=== PATIENT | female | born 1950 | race African-American/Black ===

== ENCOUNTER 2016-10-28 11:12 | Inpatient (IN) | payer MEDICAID, MEDICARE ==
[~2016-10-28] VITALS: Ht 162.6 cm; Wt 52.2 kg
[~2016-10-28 11:12] MED LIST: APRESOLINE25 MG PO; ARICEPT10 MG PO; ASPIRIN81 M1 PO; ASPIRIN81 M3 PO; ATROVENT H0.017 MG/A IH; ATROVENT HFA12.5 GM INH; BACTRIM DS 800/1 TAB PO; CATAPRES0.1 M1 PO; CATAPRES0.1 MG PO; CEROVITE SENIOR PO; DIFLUCAN100 MG PO; DIVALPROEX SOD125 M1 PO; ESCITALOPRAM5 MG PO; FLOVENT HF220 MCG/AC INH; FOSAMAX70 MG PO; IMDUR30 MG PO; LABETALOL HCL100 M1 PO; LASIX40 MG PO; LEVAQUIN500 MG PO; LEXAPRO10 MG PO; LEXAPRO5 MG PO; METOPROLOL100 M1 PO; NAMENDA10 MG PO; NIZORAL 2%15 GM TP; NORCO 10/325 MG1 TAB PO; NORVASC5 M1 PO; NORVASC5 MG PO; POTASSIUM CHLO10 ME2 PO; PREDNISONE20 MG PO; PRILOSEC40 MG PO; PROTONIX40 M1 PO; RISPERIDONE0.25 M1 PO; SINGULAIR10 MG PO; TRANDATE100 M1 PO; TYLENOL325 M1 PO; TYLENOL325 M2 PO; VENTOLIN H0.09 MG/Ac IH; VITAMIN D31000 I1 PO; ZESTRIL20 MG PO; ZOFRAN4 M2 PO
--- NOTE | 2016-10-28 11:12 | NUR ---
Patient XENIA GARCIA from [facility], transferred to bed 1. RN evalauting patient at bedside.
[2016-10-28] MEDS ORDERED: NACL 0.9% 500 ML IV ONE (11:20)
--- NOTE | 2016-10-28 11:21 | NUR ---
Dr. Fuller evaluating patient at bedside.
[2016-10-28 11:23] VITALS: BP 91/64
--- NOTE | 2016-10-28 11:30 | NUR ---
account technician at bedside for CXR.
[2016-10-28] MEDS ORDERED: GLUCOPHAGE500 MG PO (11:39)
[2016-10-28] MEDS ORDERED: LAMICTAL25 MG PO (11:39)
[2016-10-28] MEDS ORDERED: cefTRIAXone 2,000 MG in DEXTROSE 5% 100 ML IV ONE (11:40)
[2016-10-28] MEDS ORDERED: AZITHROMYCIN 500 MG in DEXTROSE 5% 250 ML IV ONE (11:40)
--- NOTE | 2016-10-28 11:42 | NUR ---
PATIENT PRESENTS TO ED WITH FROM [facility]. BS FIELD 272,BP FIELD 126/76,POX FIELD 97% AT 100% NRB, HX: COPD,ALZHEIMER,DEPRESSION,CVA,HTN,CHF,OSTEOPOROSIS.ERMD AT BEDSIDE . DENIES N/V/D; SKIN IS PINK/WARM/DRY, LUNGS SOUNDS WHEEZES BL; HR ST AND REGULAR; PT DENIES ANY FEVER, CP, SOB, OR COUGH AT THIS TIME; PATIENT STATES PAIN OF 0/10 AT THIS TIME; PATIENT POSITIONED FOR COMFORT; HOB ELEVATED; BEDRAILS UP X2; BED DOWN. ER MD MADE AWARE OF PT STATUS.
[2016-10-28] MEDS ORDERED: NACL 0.9% 1,000 ML IV ONE (11:45)
--- NOTE | 2016-10-28 12:04 | NUR ---
Patient will be admitted to care of DR. DUNCAN ORLANDO. Admited to TELE. Will go to room 114. Belongings list completed. Report to
[2016-10-28] MEDS ORDERED: cefTRIAXone 2,000 MG VIAL ONE (12:11)
[2016-10-28] MEDS ORDERED: AZITHROMYCIN 500 MG INJ VIAL IV ONE (12:11)
--- NOTE | 2016-10-28 12:42 | NUR ---
PT TRANSEFERRED TO TELE SAFELY
[2016-10-28 12:50] VITALS: BP 90/66
--- NOTE | 2016-10-28 12:50 | NUR ---
PATIENT RECEIVED FROM ER VIA [facility] WITH DX OF PNA R/O TB AND HYPERNATREMIA. PATIENT AWAKE BUT UNABLE TO SPEAK AT THIS MOMENT. PATIENT IS ON BEDREST WITH GENERALIZED WEAKNESS. PATIENT ON 3L O2 VIA NC. NO SOB BUT DIMINISHED BREATH SOUNDS NOTED UPON AUSCULTATION. SKIN IS INTACT. IV LINE NOTED TO THE RIGHT FOREARM. PATIENT PLACED ON TELE MONITORING. BED LOWERED WITH CALL LIGHT WITHIN REACH. WILL CONTINUE TO MONITOR
--- NOTE | 2016-10-28 14:30 | NUR ---
PATIENT REPOSITIONED. NO S/S OF DISTRESS NOTED
[2016-10-28] MEDS ORDERED: ACETAMINOPHEN 325 MG TAB PO PRN (14:40)
[2016-10-28] MEDS ORDERED: ALBUTEROL SULFATE/IPRATROPIU 3 ML SOL IH PRN (14:40)
[2016-10-28] MEDS ORDERED: DEXTROSE 50% 50 ML SYR IVP PRN (14:40)
[2016-10-28] MEDS: POTASSIUM CHL 10 MEQ/D5-1/2NS 1,000 ML IV SCH ×2 (15:10→23:00)
[2016-10-28 16:00] VITALS: BP 107/70
--- NOTE | 2016-10-28 16:30 | NUR ---
BLOOD SUGAR 370. 10 UNITS NOVOLOG ADMINISTERED
[2016-10-28] MEDS: BLOOD GLUCOSE MONITORING 1 DEV DEV FS SCH ×2 (16:36→21:18)
[2016-10-28] MEDS: INSULIN ASPART SLIDING SCALE 100 UNITS/ML VIAL SUBQ PRN ×2 (17:09→21:18)
[2016-10-28] MEDS: ALBUTEROL SULFATE/IPRATROPIU 3 ML SOL IH SCH (19:22)
--- NOTE | 2016-10-28 19:30 | NUR ---
ENDORSED CONTINUITY OF CARE TO THE NIGHT NURSE
--- NOTE | 2016-10-28 19:35 | NUR ---
RECEIVED REPORT FROM DAY NURSELUISITO. PATIENT RESTING IN BED. NO RESPIRATORY DISTRESS, SOB, OR DISCOMFORT. INITIAL ASSESSMENT AND BODY CHECK DONE. PATIENT IS NONVERBAL, OPENS EYES SPONTANEOUSLY, WITHDRAWS TO PAIN, UNABLE TO FOLLOW VERBAL COMMANDS. SKIN IS INTACT, IV ACCESS TO RIGHT FOREARM 20G, PATENT. DISCUSSED PLAN OF CARE, MEDICATION REGIMENT, AND PAIN MANAGEMENT WITH PATIENT. PLACED PATIENT ON SAFETY/FALL/ASPIRATION PRECAUTIONS. CALL LIGHT LEFT WITHIN REACH, WILL CONTINUE TO MONITOR.
[2016-10-28 20:00] VITALS: BP 87/63
[2016-10-28] MEDS: LABETALOL 100 MG TAB PO SCH (21:00)
[2016-10-28] MEDS: lamoTRIgine 25 MG TAB PO SCH (21:00)
--- NOTE | 2016-10-28 21:19 | NUR ---
PO LAMICTAL HELD AT THIS TIME. PATIENT VERY WEAK, ASPIRATION RISK. PATIENT OPENS EYES SPONTANEOUSLY, WITHDRAWS TO PAIN, UNABLE TO FULLY FOLLOW VERBAL COMMANDS.
--- NOTE | 2016-10-28 22:03 | NUR ---
PATIENT IN BED, SLEEPING. NO RESPIRATORY DISTRESS, SOB, OR DISCOMFORT. GENERALIZED WEAKNESS. OPENS EYES SPONTANEOUSLY, WITHDRAWS TO PAIN, UNABLE TO FOLLOW COMMANDS. CALL LIGHT LEFT WITHIN REACH, WILL CONTINUE TO MONITOR.
[2016-10-29] VITALS: BP 90/63
--- NOTE | 2016-10-29 00:41 | NUR ---
PATIENT ASLEEP. NO RESPIRATORY DISTRESS, SOB, OR DISCOMFORT. CALL LIGHT LEFT WITHIN REACH, WILL CONTINUE TO MONITOR.
[2016-10-29] MEDS: ALBUTEROL SULFATE/IPRATROPIU 3 ML SOL IH SCH ×4 (01:18→19:21)
--- NOTE | 2016-10-29 01:21 | NUR ---
0118 PT GIVEN SPUTUM CUP. PT UNABLE TO COUGH AT THIS TIME.2 HHNTXS WERE GIVEN. PT BS ARE CLEAR
--- NOTE | 2016-10-29 03:18 | NUR ---
PATIENT SLEEPING. OPENS EYES SPONTANEOUSLY, WITHDRAWS TO PAIN. NO RESPIRATORY DISTRESS, SOB, OR DISCOMFORT. CALL LIGHT LEFT WITHIN REACH, WILL CONTINUE TO MONITOR.
--- NOTE | 2016-10-29 03:42 | NUR ---
0118 UNABLE TO SCAN MEDICATION COMPUTER WOULD NOT SCAN DRUG
[2016-10-29 04:00] VITALS: BP 90/61
--- NOTE | 2016-10-29 06:03 | NUR ---
PATIENT IN BED, ASLEEP. NO RESPIRATORY DISTRESS, SOB, OR DISCOMFORT. CALL LIGHT LEFT WITHIN REACH, WILL CONTINUE TO MONITOR.
[2016-10-29] MEDS: BLOOD GLUCOSE MONITORING 1 DEV DEV FS SCH ×4 (06:15→21:03)
[2016-10-29] MEDS: INSULIN ASPART SLIDING SCALE 100 UNITS/ML VIAL SUBQ PRN ×4 (06:15→21:05)
--- NOTE | 2016-10-29 07:08 | NUR ---
REPORT GIVEN TO DAY NURSELUISITO. PATIENT RESTING IN BED, STABLE. NO RESPIRATORY DISTRESS, SOB, OR DISCOMFORT. ALL NEEDS ATTENDED TO DURING SHIFT, CALL LIGHT LEFT WITHIN REACH.
--- NOTE | 2016-10-29 07:10 | NUR ---
RECEIVED PATIENT REPORT. NO S/S OF DISTRESS AT THIS TIME. PATIENT AWAKE BUT NONVERBAL. PATIENT RECEIVING 2L O2 VIA NC. IV TO THE RIGHT FOREARM INTACT WITH IVF INFUSING WELL. PATIENT ON TELE MONITORING. BED LOWERED WITH CALL LIGHT WITHIN REACH. WILL CONTINUE TO MONITOR
[2016-10-29] MEDS: POTASSIUM CHL 10 MEQ/D5-1/2NS 1,000 ML IV SCH (07:20)
[2016-10-29 08:00] VITALS: BP 91/62
[2016-10-29] MEDS: lamoTRIgine 25 MG TAB PO SCH ×2 (09:00→20:56)
[2016-10-29] MEDS: LABETALOL 100 MG TAB PO SCH ×2 (09:00→20:56)
--- NOTE | 2016-10-29 09:00 | NUR ---
SCHEDULED PO MEDICATIONS NOT ADMINISTERED. PATIENT TOO LETHARGIC AND IS UNABLE TO FOLLOW COMMANDS. PATIENT AT RISK FOR ASPIRATION. WILL NOTIFY THE DOCTOR
[2016-10-29] MEDS: PANTOPRAZOLE 40 MG INJ VIAL IVP SCH (09:14)
[2016-10-29] MEDS: ENOXAPARIN 30 MG/0.3 ML SYR SUBQ SCH (09:16)
--- NOTE | 2016-10-29 10:26 | NUR ---
SPOKE WITH DR ORLANDO AND NOTIFIED HIM THAT PATIENT HAS NOT BEEN ABLE TO TAKE ANYTHING PO. ALSO NOTIFIED ABOUT PATIENT'S ELEVATED BLOOD SUGAR AND PATIENT'S K LEVEL OF 3.3. ORDERS RECEIVED
[2016-10-29] MEDS: POTASSIUM CHL 20 MEQ/ 1/2 NS 1,000 ML IV SCH ×2 (11:17→20:30)
[2016-10-29 12:00] VITALS: BP 96/65
[2016-10-29] MEDS: AZITHROMYCIN 500 MG in DEXTROSE 5% 250 ML IV SCH (12:49)
[2016-10-29] MEDS ORDERED: POTASSIUM CHLORIDE 20% 40 MEQ/15 ML UDC NG SCH (13:00)
--- NOTE | 2016-10-29 14:35 | NUR ---
NGT INSERTED. PATIENT TOLERATED WELL. WAITING FOR XRAY TO VERIFY PLACEMENT
[2016-10-29 16:00] VITALS: BP 91/66
--- NOTE | 2016-10-29 16:59 | NUR ---
TUBE FEEDING STARTED
--- NOTE | 2016-10-29 18:10 | NUR ---
RESIDUAL CHECKED 80ML. TUBE FEEDING RESUMED
--- NOTE | 2016-10-29 19:33 | NUR ---
PATIENT REPORT GIVEN AT BEDSIDE. PATIENT ENDORSED IN STABLE CONDITION
--- NOTE | 2016-10-29 19:33 | NUR ---
PATIENT REPORT GIVEN AT BEDSIDE. PATIENT ENDORSED IN STABLE CONDITION
--- NOTE | 2016-10-29 19:45 | NUR ---
RECEIVED PT IN STABLE CONDITION FROM MI NURSE. AWAKE,ALERT ,ORIENTED X3, BUT NON VERBAL. ON TELE MONITOR-ST. NO ACUTE DISTRESS NOTED. ON O23L/NC. JUST GOT A BREATHING TREATMENTS. HAS IVF INFUSING WELL ON THE RT FA #[id number].. NPO . BUT HAS NGT FEEDING TOLERATING WELL. NO RESIDUAL NOTED. SIDE RAILS ARE PADDED FOR SEIZURE PRECAUTIONS. BED ON LOW POSITION. CALL LIGHT PLACED WITHIN EASY REACH. WILL CONTINUE TO MONITOR.
[2016-10-29 20:00] VITALS: BP 94/65
--- NOTE | 2016-10-29 21:00 | NUR ---
AWAKE, WITH NO ACUTE DISTRESS NOTED. WILL CONTINUE TO MONITOR.
--- NOTE | 2016-10-29 23:00 | NUR ---
MADE AROUNDS. REPOSITIONED FOR COMFORT. NO DISTRESS NOTED.
[2016-10-30 00:45] VITALS: BP 102/77
[2016-10-30] MEDS: POTASSIUM CHL 20 MEQ/ 1/2 NS 1,000 ML IV SCH ×2 (00:59→16:30)
[2016-10-30] MEDS: ALBUTEROL SULFATE/IPRATROPIU 3 ML SOL IH SCH ×4 (01:18→19:13)
--- NOTE | 2016-10-30 02:00 | NUR ---
ASLEEP. NO ACUTE DISTRESS NOTED.
--- NOTE | 2016-10-30 04:00 | NUR ---
HAS BEEN REPOSITIONED FOR COMFORT. NO S/S OF ANY DISTRESS NOTED.
[2016-10-30 04:30] VITALS: BP 108/74
--- NOTE | 2016-10-30 05:30 | NUR ---
NGT PULLED OUT . INSERTED A NEW NGT FR#14 ON LEFT NARES. TOLERATED WELL. NGT FEEDING INFUSING.
[2016-10-30] MEDS: BLOOD GLUCOSE MONITORING 1 DEV DEV FS SCH ×4 (06:10→21:51)
[2016-10-30] MEDS: INSULIN ASPART SLIDING SCALE 100 UNITS/ML VIAL SUBQ PRN ×2 (06:21→12:08)
--- NOTE | 2016-10-30 07:15 | NUR ---
ENDORSED PT IN STABLE CONDITION TO AM NURSE.
--- NOTE | 2016-10-30 07:16 | NUR ---
RECEIVED REPORT FROM PETAL SHAPER HAND RN ADRIEL. PT IS A/O X 1, BEDBOUND. RFA 22G IV INTACT. 44ML/HR DIABETIC SOURCE FEEDING VIA NGT. NO S/S OF ACUTE CARDIAC/RESPIRATORY DISTRESS OR DISCOMFORT. SAFETY MEASURES IN PLACE, CALL LIGHT WITHIN REACH. FALL RISK PRECAUTION AND SEIZURE PRECAUTIONS IN PLACE. WILL CONTINUE PLAN OF CARE AND CONTINUE TO MONITOR.
[2016-10-30 08:00] VITALS: BP 105/67
[2016-10-30] MEDS: LABETALOL 100 MG TAB PO SCH ×2 (09:00→21:00)
--- NOTE | 2016-10-30 09:22 | NUR ---
PATIENT HAS BEEN SCREENED AND CATEGORIZED HIGH NUTRITION RISK. PATIENT WILL BE SEEN WITHIN 1-2 DAYS OF ADMISSION. 10/29/16-10/30/[address]
--- NOTE | 2016-10-30 09:30 | NUR ---
PT PULLED HER NGT OUT, MITTEN ARE OFF. REINSERTED NGT, CONFIRMED PLACEMENT. CLEANED AND TURNED PT WITH GLOBAL TECHNICAL WRITER AND PLACED MITTENS. PT TOLERATED HER AM MEDS WELL AND TOLERATING FEEDING WELL. NO S/S OF ACUTE DISTRESS OR DISCOMFORT. CALL LIGHT WITHIN REACH. WILL CONTINUE TO MONITOR.
[2016-10-30] MEDS: lamoTRIgine 25 MG TAB PO SCH ×2 (09:38→21:47)
[2016-10-30] MEDS: PANTOPRAZOLE 40 MG INJ VIAL IVP SCH (09:38)
[2016-10-30] MEDS: ENOXAPARIN 30 MG/0.3 ML SYR SUBQ SCH (09:43)
[2016-10-30] MEDS: INSULIN DETEMIR 100 UNITS/ML 10 ML VIAL SUBQ SCH (09:54)
[2016-10-30 12:00] VITALS: BP 109/69
[2016-10-30] MEDS: AZITHROMYCIN 500 MG in DEXTROSE 5% 250 ML IV SCH (12:06)
--- NOTE | 2016-10-30 12:41 | NUR ---
PT IS RESTING. NO S/S OF ACUTE DISTRESS OR DISCOMFORT. CALL LIGHT WITHIN REACH. WILL CONTINUE TO MONITOR.
--- NOTE | 2016-10-30 15:00 | NUR ---
PT IS SLEEPING. NO S/S OF ACUTE DISTRESS OR DISCOMFORT. CALL LIGHT WITHIN REACH. WILL CONTINUE TO MONITOR.
--- NOTE | 2016-10-30 15:10 | NUR ---
10/30/16 RD INITIAL ASSESSMENT COMPLETED PLEASE REFER TO NUTRITION ASSESSMENT UNDER CARE ACTIVITY FOR ESTIMATED NUTRITIONAL NEEDS. RD RECOMMENDATIONS: 1. CONTINUE NUTRITION SUPPORT TUBE FEEDING DIABETISOURCE AC AT 45 ML/HR VIA NGTUBE 2. IF PT CONTINUES TO TOLERATE NUTRITION SUPPORT CONSIDER ADVANCE RATE TOLERATED 5ML Q4H TO GOAL OF 60 ML/HR --AT GOAL, NUTRITION SUPPORT WILL PROVIDE 1440 ML TOTAL VOLUME 1728 KCAL, 86 GM PROTEIN TO MEET 100% OF PT ESTIMATED KCAL AND PROTEIN NEEDS. 3. RD WILL F/U 2-3 DAYS; HIGH RISK. TRAVIS [address] RD
[2016-10-30 16:00] VITALS: BP 98/64
--- NOTE | 2016-10-30 18:02 | NUR ---
PT IS SLEEPING. PT TOLERATING FEEDING WELL. NO S/S OF ACUTE DISTRESS OR DISCOMFORT. CALL LIGHT WITHIN REACH. WILL CONTINUE TO MONITOR.
--- NOTE | 2016-10-30 19:20 | NUR ---
ENDORSED REPORT TO LINE REPAIRER RN SHAWNEE. PT HAS NO S/S OF ACUTE DISTRESS OR DISCOMFORT. PT IN STABLE CONDITION.
--- NOTE | 2016-10-30 19:28 | NUR ---
RECEIVED FROM AM RN IN BED. TOTAL CARE RT WEAKNESS.NGT IN PLACE WITH DM 50 ML/H INFUSING. PLACEMENT CHECKED. IN PLACE. NO VOMITING NOTED WITH PT. AND NO COUGHING NOTED OR REPORTED BY AM RN. HOB UP 30 DEGREES FOR ASPIRATION PRECAUTIONS. WITH MITTENS RT PT. PULLS OUT NGT. RFA#[address] INFUSING WITH 1/2 NS + 20 MEQS OF KCL @ 100 ML/H. IVF SITE INTACT AND NO INFILTRATION . NEEDS WILL BE ANTICIPATED RT HX. DEMENTIA. NONE VERBAL AT THIS TIME WITH ME.
[2016-10-30 20:00] VITALS: BP 96/57
--- NOTE | 2016-10-30 22:00 | NUR ---
IVF SITE NOTED LEAKING AT THIS TIME. CHARGE NURSE INSERTED NEW LINE TO RIGHT FOREARM #22. TOLERATED WELL. WITH GOOD BLOOD RETURN.
--- NOTE | 2016-10-31 | NUR ---
PT. TURNED TO SIDES Q 2H. TOTAL CARE. NGT PLACEMENT CHECKED. IN PLACE. NEEDS ANTICIPATED AND WILL BE MET. TELEMETRY MONITORING. ISOLATION PRECAUTION IN PLACE RT HX. MRSA NARES.
[2016-10-31 00:11] VITALS: BP 100/60
[2016-10-31] MEDS: ALBUTEROL SULFATE/IPRATROPIU 3 ML SOL IH SCH ×3 (01:20→12:59)
--- NOTE | 2016-10-31 02:00 | NUR ---
PT. TOTAL CARE. TURNED Q 2H. RESIDUAL PER NGT 10 ML. NO VOMITING NOTED. NGT IN PLACE.
[2016-10-31] MEDS: POTASSIUM CHL 20 MEQ/ 1/2 NS 1,000 ML IV SCH ×2 (02:30→12:39)
--- NOTE | 2016-10-31 04:00 | NUR ---
SLEEPING AT THIS TIME. TURNED TO SIDES Q 2H BY CNAS. NEEDS ANTICIPATED AND WILL BE MET. TOTAL CARE. ISOLATION PRECAUTIONS OBSERVED. CALL LIGHT WITH IN REACH. MITTENS IN PLACE RT TENDENCY OF PULLING TUBES. PADDED SIDERAILS FOR SEIZURE PRECAUTIONS.
[2016-10-31 04:32] VITALS: BP 99/64
[2016-10-31] MEDS: BLOOD GLUCOSE MONITORING 1 DEV DEV FS SCH ×2 (06:57→11:46)
[2016-10-31] MEDS: INSULIN ASPART SLIDING SCALE 100 UNITS/ML VIAL SUBQ PRN ×2 (06:58→11:47)
--- NOTE | 2016-10-31 07:25 | NUR ---
ENDORSED TO THE NEXT RN FOR CONTINUITY OF CARE. AWAKE AND NONE VERBAL. TURNED Q 2H. TOTAL CARE. TELEMETRY MONITORING.
--- NOTE | 2016-10-31 07:26 | NUR ---
PT AWAKE AND RESPONSIVE, RESTING WELL IN BED. NO SIGNS OF ACUTE DISTRESS. SKIN IS WARM AND DRY. OFFLOAD TO PRESSURE AREAS. NG TUBE IN PLACE ON RIGHT NARE. INTACT AND PATENT, NO RESIDUAL. TOLERATING FEEDING WELL. FLACC 0. KEPT CLEAN AND DRY. ALL NEEDS ANTICIPATED. CALL LIGHT WITHIN REACH.
[2016-10-31 08:00] VITALS: BP 107/74
[2016-10-31] MEDS: LABETALOL 100 MG TAB PO SCH (08:21)
[2016-10-31] MEDS: lamoTRIgine 25 MG TAB PO SCH (08:37)
[2016-10-31] MEDS: PANTOPRAZOLE 40 MG INJ VIAL IVP SCH (08:37)
[2016-10-31] MEDS: INSULIN DETEMIR 100 UNITS/ML 10 ML VIAL SUBQ SCH (08:44)
[2016-10-31] MEDS: ENOXAPARIN 30 MG/0.3 ML SYR SUBQ SCH (08:45)
[2016-10-31 12:00] VITALS: BP 97/60
[2016-10-31] MEDS: AZITHROMYCIN 500 MG in DEXTROSE 5% 250 ML IV SCH (12:49)
--- NOTE | 2016-10-31 13:05 | NUR ---
RECEIVED ORDER FROM Ingrid CRUMP D/C TODAY. CONTINUE PO AND IV ABX SS MADE AWARE.
--- NOTE | 2016-10-31 13:28 | NUR ---
SS NOTE: PER GERMAIN FROM [facility] ([phone]), PT CAN GO TO ROOM 14B ANYTIME. SHE ALSO STATED THAT PT IS OKAY TO RETURN THERE WITH MITTENS. HADLEY BARRERA.
--- NOTE | 2016-10-31 14:37 | NUR ---
CALLED [facility] AND SET UP BLS TRANSPORT FOR 3:30P.Shelly. KATHY ALMAGUER AWARE.
[2016-10-31] MEDS ORDERED: AUGMENTIN 500 M1 TAB PO (14:42)
--- NOTE | 2016-10-31 15:15 | NUR ---
REPORT GIVEN TO SHAWNEE AT [facility]. ETA P/U BY [facility] AT 1530 PER SS..
--- NOTE | 2016-10-31 15:45 | NUR ---
PT AWAKE AND RESPONSIVE, NO SIGNS OF ACUTE DISTRESS, [facility]. PT NEEDS REINFORCEMENT ON EDUCATION, UNABLE TO COMPLY. NG TUBE AND IV ON RIGHT FOREARM IN PLACE, WRIST BANDS AND TELE LEADS REMOVED. PERSONAL BELONGINGS WITH PT UPON TRANSFER. PICKED UP BY [facility]IA [facility].
== END 2016-10-31 15:45 | DRG 720 ==
LOC: MED 11:12 → MTU 12:03
PROVIDERS: ADMIT Family Medicine; ATTEND Family Medicine
DX: A41.9 Sepsis, unspecified organism (principal); J69.0 Pneumonitis due to inhalation of food and vomit; E87.0 Hyperosmolality and hypernatremia; J96.11 Chronic respiratory failure with hypoxia; I50.9 Heart failure, unspecified; F01.50 Vascular dementia, unspecified severity, without behavioral disturbance, psychotic disturbance, mood disturbance, and anxiety; E86.0 Dehydration; E11.9 Type 2 diabetes mellitus without complications; G40.909 Epilepsy, unspecified, not intractable, without status epilepticus; K21.9 Gastro-esophageal reflux disease without esophagitis; M81.0 Age-related osteoporosis without current pathological fracture; I11.0 Hypertensive heart disease with heart failure; E78.5 Hyperlipidemia, unspecified; J44.0 Chronic obstructive pulmonary disease with (acute) lower respiratory infection; R64 Cachexia; Z28.89 Immunization not carried out for other reason; Z99.81 Dependence on supplemental oxygen; Z68.1 Body mass index [BMI] 19.9 or less, adult; Z79.82 Long term (current) use of aspirin; Z79.899 Other long term (current) drug therapy; Z87.81 Personal history of (healed) traumatic fracture; Z86.73 Personal history of transient ischemic attack (TIA), and cerebral infarction without residual deficits

== ENCOUNTER 2016-11-09 10:49 | Inpatient (IN) | payer MEDICAID, MEDICARE ==
[2016-11-09] VITALS (9 sets, daily range): BP systolic 78–118; BP diastolic 48–74
[~2016-11-09] VITALS: Ht 162.6 cm; Wt 40.8 kg
[~2016-11-09 10:49] MED LIST changes: +AUGMENTIN 500 M1 TAB PO; +GLUCOPHAGE500 MG PO; +LAMICTAL25 MG PO
--- NOTE | 2016-11-09 10:51 | NUR ---
Note undone in EDM - 11/09/16 at 1454 by [email or web address] 6/F XENIA FROM [facility] FOR ACUTE ONSET OF SOB. PT NON VERBAL,RESPONSES TO VOICE.PATIENT PRESENTS TO ED HAS NOT N/V/D NOTED AT THIS TIME; SKIN IS PINK/WARM/DRY,SKIN TEAR AT COCCYX; ; LUNGS WHEEZING BL; HR TACHYCARDEA 141/MIN ; PT HAS LOW FEVER & SOB, AT THIS TIME; PATIENT STATES PAIN OF 0/10 AT THIS TIME; PATIENT POSITIONED FOR COMFORT; HOB ELEVATED; BEDRAILS UP X2; BED DOWN. ER MD MADE AWARE OF PT STATUS.
--- NOTE | 2016-11-09 10:51 | NUR ---
Note undone in EDM - 11/09/16 at 1454 by [email or web address] 66/F XENIA FROM [facility] FOR ACUTE ONSET OF SOB. PT NON VERBAL,RESPONSES TO VOICE.PATIENT PRESENTS TO ED HAS N/V/D NOTED AT THIS TIME; SKIN IS PINK/WARM/DRY,SKIN TEAR AT COCCYX; ; LUNGS WHEEZING BL; HR TACHYCARDEA 141/MIN ; PT HAS LOW FEVER & SOB, AT THIS TIME; PATIENT STATES PAIN OF 0/10 AT THIS TIME; PATIENT POSITIONED FOR COMFORT; HOB ELEVATED; BEDRAILS UP X2; BED DOWN. ER MD MADE AWARE OF PT STATUS.
--- NOTE | 2016-11-09 10:52 | NUR ---
INFORMATION OBTAINED FROM EMT 66 Y/O FEMALE FROM [facility] PRESENTING TO [facility] WITH SOB SATURATION AT SITE 86% ON ROOM AIR PATIENT EMT PLACED ON NON REBREATHER PATIENT GIVEN EIN ROUTE HHN THERAPY WITH 1 UD ALBUTEROLI ONLY DUE TO TACHYCARDIC STATUS HR 146 RR 28 BREATH SOUNDS POSTERIOR INSP/EXP WHEEZE BILATERAL PATIENT PLACED ON [facility] NON REBREATHER AT 15 LPM
--- NOTE | 2016-11-09 10:54 | NUR ---
REVIEWED STATUS WITH DR. SHADY JACOBSON
--- NOTE | 2016-11-09 10:55 | NUR ---
66/F BIBA FROM [facility] FOR ACUTE ONSET OF SOB. PT NON VERBAL,RESPONSES TO VOICE.PATIENT PRESENTS TO ED HAS NOT N/V/D NOTED AT THIS TIME; SKIN IS PINK/WARM/DRY,SKIN TEAR AT COCCYX; ; LUNGS WHEEZING BL; HR TACHYCARDEA 141/MIN ; PT HAS LOW FEVER & SOB, AT THIS TIME; PATIENT STATES PAIN OF 0/10 AT THIS TIME; PATIENT POSITIONED FOR COMFORT; HOB ELEVATED; BEDRAILS UP X2; BED DOWN. ER MD MADE AWARE OF PT STATUS.
--- NOTE | 2016-11-09 10:55 | NUR ---
DR.STEVEN JACOBSON AT BEDSIDE V.O. PLACE PATIENT ON COOL MIST
[2016-11-09] MEDS ORDERED: NACL 0.9% 1,000 ML IV ONE ×2 (11:20→12:55)
--- NOTE | 2016-11-09 11:26 | NUR ---
X RAY AT BEDSIDE
--- NOTE | 2016-11-09 11:34 | NUR ---
LAB AT BEDSIDE
[2016-11-09] MEDS ORDERED: PIPERACILLIN/TAZOBACTAM 3.375 GM in DEXTROSE 5% 50 ML IV ONE (11:50)
[2016-11-09] MEDS ORDERED: PIPERACILLIN/TAZOBACTAM 3.375 GM VIAL IV ONE (12:08)
[2016-11-09] MEDS ORDERED: INSULIN HUMAN REGULAR 100 UNITS/ML 10 ML VIAL IVP ONE (12:40)
[2016-11-09] MEDS ORDERED: VANCOMYCIN 1,000 MG in DEXTROSE 5% 250 ML IV ONE (12:55)
[2016-11-09] MEDS ORDERED: VANCOMYCIN 1,000 MG VIAL ONE (13:21)
--- NOTE | 2016-11-09 14:05 | NUR ---
GAVE REPORT TO TRIPP JORGE
--- NOTE | 2016-11-09 14:10 | NUR ---
Patient will be admitted to care of DR Corbin ORLANDO. Admited to [email or web address] Will go to [id number]. Belongings list completed. Report to TRIPP JORGE.
--- NOTE | 2016-11-09 14:20 | NUR ---
ADMITTED PT FROM ER TO TELE RM 107B. AAOX1, NONVERBAL. [id number], [id number], BP102/74, RR32 LABORED BREATHING, SaO2 96-98% ON O2@15L/MIN VIA MASK; DR HILL AT BEDSIDE TO EVALUATE PT, ORDERED TO TRANSFER TO ICU, UNIT MANAGER CONVENIENCE STORES MADE AWARE. COOLING MEASURES APPLIED, REQUESTED APAP SUPPOSITORY FROM . JEANNINEO INFUSING TO RIGHT FA 24, IV SL TO LEFT HAND; BOTH SITES ASYMPTOMATIC. SACROCOCCYGEAL OPEN WOUND, REPOSITIONED PER PROTOCOL. SMALL AMT SOFT BROWN STOOL, LARGE AMT YELLOW URINE NOTED ON PAD; PERICARE GIVEN. SAFETY PRECAUTIONS MAINTAINED. WILL CONTINUE TO CLOSELY MONITOR UNTIL TRANSFER.
[2016-11-09] MEDS: IPRATROPIUM 0.02% 0.5 MG/2.5 ML NEBU INH PRN ×2 (14:59→19:24)
[2016-11-09] MEDS: ALBUTEROL 0.083% 2.5 MG/3 ML NEBU INH PRN ×3 (14:59→23:12)
--- NOTE | 2016-11-09 15:00 | NUR ---
TEMP 99.7, CONTINUED COOLING MEASURES.
--- NOTE | 2016-11-09 15:29 | NUR ---
RECEIVED REPORT FROM TRIPP JORGE.
[2016-11-09] MEDS ORDERED: DEXTROSE 50% 50 ML SYR IVP PRN (15:40)
--- NOTE | 2016-11-09 15:45 | NUR ---
PT EVALUATED BY DR ORLANDO, DISCUSSED PT CONDITION AND PLAN OF CARE; NEW ORDERS PENDING. TRANSFERRED SAFELY TO ICU BED1, REPORT GIVEN TO TRIPP MORAN.
--- NOTE | 2016-11-09 16:00 | NUR ---
RECEIVED PATIENT FROM TELE. PT SEEN AT BEDSIDE. PT IS AWAKE, UNABLE TO COMMUNICATE WITH WORDS, ONLY RESPONDS IN GRUNTS. PT PLACED ON SHOP LEAD, RUNNING SINUS TACHY HR CURRENTLY AT 135. RIGHT FA 24G IV NOTED AND LEFT HAND 22G NOTED. IV'S HAVE SOME RESISTANCE WHEN FLUSHING WITH NS. PT ON 15L O2 VIA NRB. PT IS TACHYPNEIC, WITH RR AT 35 WITH LABORED BREATHING. TEMPERATURE IS 100.4F. PT IS INCONTINENT AT THIS TIME, HAD X1 BM AT TELE UNIT. STAGE II PRESSURE ULCER WITH SACRUM NOTED. IVETH AT THIS TIME. PT TURNED AND REPOSITIONED FOR COMFORT. SAFETY MEASURES CHECKED, CALL LIGHT LEFT AT BEDSIDE. WILL FOLLOW UP WITH ORDERS AND CONTINUE TO MONITOR.
[2016-11-09] MEDS ORDERED: FAMOTIDINE 20 MG/2 ML VIAL IV SCH (17:00)
[2016-11-09] MEDS: POTASSIUM CHL 10 MEQ/D5-1/2NS 1,000 ML IV SCH (17:05)
[2016-11-09] MEDS: ACETAMINOPHEN 650 MG SUPP RC PRN (17:06)
[2016-11-09] MEDS: BLOOD GLUCOSE MONITORING 1 DEV DEV FS SCH ×2 (17:21→20:29)
[2016-11-09] MEDS: INSULIN LISPRO SLIDING SCALE 100 UNITS/ML VIAL SUBQ PRN ×2 (17:25→21:53)
[2016-11-09] MEDS: LEVOFLOXACIN 500 MG/D5W PREMIX 100 ML IV SCH (17:26)
[2016-11-09] MEDS: PIPER/TAZO 3.375GM/D5W PREMIX 50 ML IV SCH ×2 (17:27→23:18)
[2016-11-09] MEDS ORDERED: PROBIOTIC SCREEN 1 EA MISC MC PRN (17:40)
--- NOTE | 2016-11-09 17:45 | NUR ---
VILMA/RN AND LUISA/RN AT BEDSIDE FOR NG TUBE INSERTION TELEPHONE SEX WORKER UNABLE TO PERFORM ABG AT THIS TIME TELEPHONE SEX WORKER TO PASS ORDER ON TO NOC TELEPHONE SEX WORKER DURING REPORT
--- NOTE | 2016-11-09 17:50 | NUR ---
NGT INSERTED. GREENISH GASTRIC DRAINAGE ASPIRATED. PLACEMENT AUSCULTATED.
--- NOTE | 2016-11-09 18:00 | NUR ---
NEW IV INSERTED BY TRIPP ESPARZA.
--- NOTE | 2016-11-09 18:30 | NUR ---
RT AT BEDSIDE PERFORMING ABG.
--- NOTE | 2016-11-09 18:46 | NUR ---
DR WAHL CALLED. RESP THERAPIST INFORMED MD ABOUT ABG RESULTS. NOTIFIED THAT "PATIENT ALSO HAS A SACRUM STAGE II ULCER AND IS INCONTINENT OF URINE ; OK TO PUT ROMERO IN?" PER , OK TO PUT ROMERO IN. WILL FOLLOW UP WITH ORDERS.
--- NOTE | 2016-11-09 19:00 | NUR ---
ROMERO CATHETER INSERTED BY TRIPP ESPARZA.
--- NOTE | 2016-11-09 19:10 | NUR ---
1904 PLACED PT ON BIPAP 08/14 RR 12 FIO2 100% AND TITRATE FIO2 TO BE GREATER THAN 92%. DR WAHL WAS CALLED WITH ABG PRIOR TO PLACING PT ON BIPAP..WILL MONITOR PT
--- NOTE | 2016-11-09 19:29 | NUR ---
RECEIVED REPORT FROM DAY SHIFT RN LUISA. FULL CODE, ON NATIONAL BUSINESS DIRECTOR, SINUS TACHYCARDIA. ON BIPAP I/E 08/14, RATE OF 12, FIO2 100%. WITH NGT ON RIGHT NARE. TO START FEEDING. WITH PERIPHERAL IV OF G22 ON RIGHT ARM RUNNING IVF OF D5 1/2 NS + 10 MEQ KCL RUNNING AT 120 ML/HR VIA IV PUMP. WITH ANOTHER PERIPHERAL IV ON RIGHT ARM G24 SALINE LOCK. WITH ROMERO CATHETER DRAINING TO YELLOWISH URINE OUTPUT ON GRAVITY BAG. WITH STAGE 2 SACRAL WOUND OPENED TO AIR.
--- NOTE | 2016-11-09 19:29 | NUR ---
REPORT GIVEN TO TRIPP ARROYO.
[2016-11-09] MEDS: lamoTRIgine 25 MG TAB PO SCH (20:30)
[2016-11-09] MEDS: SACCHAROMYCES 250 MG CAP PO SCH (20:30)
--- NOTE | 2016-11-09 21:15 | NUR ---
PAGED DR. WAHL AND CALLED BACK. INFORMED OF PATIENT'S HR = 133, LOW BP = 75/57. ORDERS MADE. TO GIVE BOLUS NS 1L. LEVOPHED DRIP PRN IF BP NOT IMPROVED.
[2016-11-09] MEDS ORDERED: NOREPINEPHRINE 8 MG in DEXTROSE 5% 250 ML IV PRN (21:20)
[2016-11-09] MEDS ORDERED: NACL 0.9% 1,000 ML IV SCH (21:20)
[2016-11-09] MEDS ORDERED: NOREPINEPHRINE 4 MG in DEXTROSE 5% 250 ML IV PRN (21:25)
--- NOTE | 2016-11-09 22:00 | NUR ---
1L OF NS BOLUS GIVEN ORDERED. BP = 89/58.
--- NOTE | 2016-11-09 23:14 | NUR ---
2120 LOWERED FIO2 TO 80% SATS 100%
--- NOTE | 2016-11-09 23:15 | NUR ---
2312 LOWERED FIO2 TO 50% SATS 100%
[2016-11-10] VITALS (24 sets, daily range): BP systolic 89–122; BP diastolic 54–75
--- NOTE | 2016-11-10 00:12 | NUR ---
REPOSITIONED PATIENT. BED IN LOW POSITION. ALL ALARMS CHECKED. JUSTIN-CARE GIVEN.
--- NOTE | 2016-11-10 01:59 | NUR ---
BP = 111/65. REPOSITIONED PATIENT. ORAL CARE GIVEN. SAFETY CHECKS DONE.
[2016-11-10] MEDS: ALBUTEROL 0.083% 2.5 MG/3 ML NEBU INH PRN ×3 (03:22→15:05)
--- NOTE | 2016-11-10 03:45 | NUR ---
MORNING CARE GIVEN, ORAL CARE DONE. REPOSITIONED PATIENT. ALL LINENS AND GOWN CHANGED. JUSTIN-CARE GIVEN. BIPAP FIO2 40%.
[2016-11-10] MEDS: PIPER/TAZO 3.375GM/D5W PREMIX 50 ML IV SCH ×4 (05:40→23:43)
[2016-11-10] MEDS: POTASSIUM CHL 10 MEQ/D5-1/2NS 1,000 ML IV SCH ×3 (05:40→15:39)
--- NOTE | 2016-11-10 06:00 | NUR ---
X-RAY DONE AT THE BEDSIDE. REPOSITIONED PATIENT. BED IN LOW POSITION. ALL ALARMS CHECKED. SAFETY CHECKED.
--- NOTE | 2016-11-10 06:15 | NUR ---
PAGED DR. WAHL FOR ABNORMAL LAB VALUES. WILL WAIT FOR CALL BACK.
--- NOTE | 2016-11-10 06:30 | NUR ---
DR. WAHL CALLED BACK. POTASSIUM = 2.5, POTASSIUM REPLACEMENTS ORDERED.
[2016-11-10] MEDS ORDERED: POTASSIUM CHLORIDE 10 MEQ TABER PO PRN (06:45)
[2016-11-10] MEDS: IPRATROPIUM 0.02% 0.5 MG/2.5 ML NEBU INH PRN (07:02)
--- NOTE | 2016-11-10 07:08 | NUR ---
RECEIVED PT ON BIPAP, SETTINGS 12/5, R 12 AND FIO2 40%. PT IS TACHYPNEIC AT THIS TIME. PRN BREATHING TX ADMINISTERED WITH NO ADVERSE REACTIONS. PT HAS PROTECTA-GEL PLACED UNDER MASK TO PREVENT NECROSIS, NO REDNESS NOTED. BIPAP IS PLUGGED INTO RED OUTLET WITH ALARMS ON AND FUNCTIONING. WILL CONTINUE TO MONITOR.
--- NOTE | 2016-11-10 07:15 | NUR ---
PATIENT REPORT GIVEN TO DAY SHIFT RN LUISA.
[2016-11-10] MEDS: BLOOD GLUCOSE MONITORING 1 DEV DEV FS SCH ×4 (07:25→21:00)
[2016-11-10] MEDS: INSULIN LISPRO SLIDING SCALE 100 UNITS/ML VIAL SUBQ PRN ×3 (07:26→16:40)
[2016-11-10] MEDS ORDERED: KCL 20 MEQ/WATER INJ PREMIX 200 ML IV SCH (07:30)
--- NOTE | 2016-11-10 07:30 | NUR ---
RECEIVED REPORT FROM TRIPP ARROYO. PT SEEN AT BEDSIDE. PT IS NONVERBAL, HAS HX OF CVA AND DEMENTIA. PT ON BIPAP AT THIS TIME SATTING 100%. PT HAS RIGHT FA 24G IV SALINE LOCKED AND RIGHT HAND 22G IV RUNNING IVF. PATIENT ON FEED RESEARCH AIDE RUNNING SINUS TACHY AT THIS TIME. PT ON NGT FEEDING; RESIDUAL 5. ABD SOFT WITH ACTIVE BS IN X4 QUADRANTS. PT HAS ROMERO CATHETER IN PLACE DRAINING YELLOW, CLEAR URINE. PT HAS STAGE II PRESSURE ULCER ON SACRUM COVERED WITH FOAM DRESSING. PATIENT TURNED AND REPOSITIONED FOR COMFORT. SAFETY MEASURES CHECKED, CALL LIGHT LEFT AT BEDSIDE. WILL CONTINUE TO MONITOR.
[2016-11-10] MEDS ORDERED: POTASSIUM CHLORIDE 20% 40 MEQ/15 ML UDC GT SCH ×2 (08:00→12:00)
--- NOTE | 2016-11-10 08:21 | NUR ---
PATIENT HAS BEEN SCREENED AND CATEGORIZED HIGH NUTRITION RISK. PATIENT WILL BE SEEN WITHIN 1-2 DAYS OF ADMISSION. 11/10/16-11/11/[address]
[2016-11-10] MEDS: SACCHAROMYCES 250 MG CAP PO SCH ×2 (08:41→22:12)
[2016-11-10] MEDS: lamoTRIgine 25 MG TAB PO SCH ×2 (08:41→22:12)
[2016-11-10] MEDS: ENOXAPARIN 40 MG/0.4 ML SYR SUBQ SCH (08:43)
[2016-11-10] MEDS: INSULIN DETEMIR 100 UNITS/ML 10 ML VIAL SUBQ SCH (08:43)
--- NOTE | 2016-11-10 09:41 | NUR ---
CONTACTED REGARDING PT STATUS. REQUESTS PT SON BE CONTACTED REGARDING STATUS. WILL NOTIFY ICU NURSE. COY ORDER IN ONE HOUR. Addendum: 11/10/16 at 0957 by Juan Rapp RT ICU NURSE LUISA AND SANDEE MADE AWARE OF PHONE CALL.
--- NOTE | 2016-11-10 10:15 | NUR ---
PT HAD VERY LARGE BM. PT CLEANED, TURNED AND REPOSITIONED. WILL CONTINUE TO MONITOR.
--- NOTE | 2016-11-10 11:07 | NUR ---
DR. ORLANDO AT NURSING STATION. UPDATED MD ON PATIENT CONDITION. WILL FOLLOW UP ON ORDERS.
--- NOTE | 2016-11-10 11:37 | NUR ---
PULMONARY WAS NOTIFIED OF ABG'S REPORT (DRAWN AT 1057 HR) NO NEW ORDER. CONTINUE ON SAME BIPAP SETTING.
--- NOTE | 2016-11-10 12:15 | NUR ---
PT HAD LARGE STOOL. CLEANED, TURNED, AND REPOSITIONED. GOWN CHANGED, PATIENT BED BATH GIVEN. WILL CONTINUE TO MONITOR.
--- NOTE | 2016-11-10 13:25 | NUR ---
PT REMAINS ON BIPAP PER REQUEST OF . NURSE LUISA AWARE. PT TOLERATING BIPAP WELL AT THIS TIME. ALARMS REMAIN ON AND FUNCTIONING. WILL CONTINUE TO MONITOR.
--- NOTE | 2016-11-10 14:15 | NUR ---
PT'S FAMILY MEMBERS AT BEDSIDE. UPDATED FAMILY MEMBERS ON PATIENT CONDITION AT THIS TIME. PER DAUGHTERS, THEY WANT TO MAKE A DECISION ON PATIENT'S PLAN OF CARE AND CODE STATUS WHEN HER BROTHER, MARKY, VISIT WITH THEM. THEY WOULD ALSO LIKE TO TALK TO THE DOCTOR WHEN AVAILABLE. NOTIFIED FAMILY THAT I WILL ASK DOCTOR TO CALL THEM WHEN HE ARRIVES. FAMILY VERBALIZED UNDERSTANDING.
--- NOTE | 2016-11-10 14:50 | NUR ---
11/10/16 RD INITIAL ASSESSMENT COMPLETED PLEASE REFER TO NUTRITION ASSESSMENT UNDER CARE ACTIVITY FOR ESTIMATED NUTRITIONAL NEEDS. RD RECOMMENDATIONS: 1. CONTINUE NUTRITION SUPPORT DIABETISOURCE AT 50 ML/HR WITH 200 ML FREE WATER FLUSH Q6H VIA NGTUBE TOLERATED --ADEQUATE TO MEET >97% OF PT ESTIMATED KCAL AND PROTEIN NEEDS. 2. RD WILL F/U 2-3 DAYS; HIGH RISK. TRAVIS [address] RD
--- NOTE | 2016-11-10 15:00 | NUR ---
WOUND CARE EVALUATION NOTES: REASON FOR EVALUATION: SACRALCOCCYXEAL OPEN WOUND COMPLETE SKIN ASSESSMENT DONE ON THIS 66 Y/O FEMALE PATIENT FROM [facility] TO [facility], WITH INITIAL DIAGNOSIS OF SEPTICEMIA AND PNEUMONIA. PAST MEDICAL HISTORY INCLUDE DIABETES, OLD CVA, SEIZURE, HYPERTENSION AND DEMENTIA. ALL ABOVE INFORMATION WAS OBTAINED FROM THE ADMISSION H&P. LABS ARE WBC 15.3, H/H 8.8/29.2, GLUCOSE 237, ALBUMIN 2.5, PT/INR 13.2/1.4 AND PTT 19.4. CURRENT MEDS INCLUDE INSULIN, ENOXAPARIN, ZOSYN AND LEVOFLOXACIN. PATIENT IS LETHARGIC AT THIS TIME, ABLE TO RESPOND TO PAINFUL STIMULI. SKIN WARM TO TOUCH WNL, TOENAILS WNL, NO EDEMA, NO HAIR GROWTH AND +2 BILATERAL PEDAL PULSES. SCARRING NOTED ON THE RIGHT LATERAL THIGH. RIGHT NARES NGT TO DIABETIC SOURCE AT 50 CC/H NOTED. RIGHT FOREARM PERIPHERAL IV PATENT AND INTACT. FC 14FR PATENT AND INTACT TO YELLOW URINE IN MODERATE AMOUNT. ON BIPAP AT THIS TIME. NEEDS MAX ASSISTANCE IN TURNING. INITIAL PLAN OF CARE AND PRESSURE PREVENTIVE MEASURES DISCUSSED, UNABLE TO VERBALIZE UNDERSTANDING. WILL REINFORCE TEACHING. INTEGUMENTARY: SACRALCOCCYX - ST II - 100% PALE RED. PW RED AND MOIST RECOMMENDATIONS: -CLEANSE SACRALCOCCYX WITH MILD SOAP AND WATER, PAT DRY, APPLY Z GUARD AND COVER WITH FOAM DRESSING Q OTHER DAY AND PRN WITH SOILING/DISPLACEMENT. CHECK DRESSING PLACEMENT DAILY -TURN AND REPOSITION PATIENT Q2H TO LEFT AND RIGHT SIDE ONLY TO OFFLOAD SACRALCOCCYX -ASSESS AND MONITOR SKIN CONDITION DURING POSITION CHANGE, PLEASE PAY PARTICULAR ATTENTION TO SACRALCOCCYX, ELBOWS AND HEELS -OFFLOAD BILATERAL HEELS BY PLACING PILLOWS UNDER CALVES AT ALL TIMES, UNLESS OTHERWISE CONTRAINDICATED -KEEP SKIN CLEAN AND DRY AT ALL TIMES. RECOMMENDATIONS DISCUSSED WITH PRIMARY RN. WILL FOLLOW UP PATIENT Q 7 DAYS AND PRN. PLEASE CONTACT [facility] FOR ANY CONCERNS, QUESTIONS AND CHANGES IN WOUND CONDITION.
--- NOTE | 2016-11-10 15:00 | NUR ---
PT HAD LARGE BM X1. CLEANED, TURNED AND REPOSITIONED. WILL CONTINUE TO MONITOR.
--- NOTE | 2016-11-10 15:16 | NUR ---
BEDSIDE, PHYSICIAN REQUESTS FIO2 TO BE TITRATED TO 30%. NO OTHER CHANGES MADE. NURSE LUISA BEDSIDE AND AWARE OF CHANGE. WILL CONTINUE TO MONITOR.
--- NOTE | 2016-11-10 15:23 | NUR ---
DR. HILL AT BEDSIDE TALKING TO PATIENT'S FAMILY.
[2016-11-10] MEDS ORDERED: Z-GUARD PASTE TP PRN (16:20)
[2016-11-10] MEDS: LEVOFLOXACIN 500 MG/D5W PREMIX 100 ML IV SCH (16:39)
--- NOTE | 2016-11-10 16:56 | NUR ---
PT REMAINS ON DOCUMENTED SETTINGS. BIPAP REMAINS PLUGGED INTO RED OUTLET WITH ALARMS ON AND FUNCTIONING.
--- NOTE | 2016-11-10 17:20 | NUR ---
DR. HILL CALLED. INFORMED MD OF PATIENT'S IVF AT 120ML/HR AND THAT PATIENT'S FAMILY WOULD LIKE TO SIGN FOR DNR. DR HILL TALKING TO MARKY (SON) ON THE PHONE. MARKY AND FAMILY MEMBERS AGREED TO SIGN FOR DNR. Addendum: 11/10/16 at 1754 by Padmini Kulkarni RN RECEIVED ORDERS TO REDUCE IVF TO 70ML/HR. PER FAMILY, THEY STILL WANT BIPAP ON FOR PATIENT. AWARE.
--- NOTE | 2016-11-10 18:41 | NUR ---
ARUNSYN ADMINISTERED WITH EDUCATION. PT UNABLE TO VERBALIZE UNDERSTANDING. WILL CONTINUE TO MONITOR.
--- NOTE | 2016-11-10 19:28 | NUR ---
REPORT GIVEN TO TRIPP ARROYO.
--- NOTE | 2016-11-10 19:36 | NUR ---
RECEIVED REPORT FROM LUISA ALMAGUER. PATIENT IS SLEEPING IN BED. NO SIGNS OF SOB NOTED. PATIENT IS ON BIPAP WITH SETTINGS OF I/E 12/5, FIO2 AT 30%, AND RATE OF 12. BREATH SOUNDS ARE DIMINISHED ON AUSCULTATION. THERE ARE BOWEL SOUNDS PRESENT. THERE IS A NGT IN THE PATIENT'S RIGHT NARES RECEIVING DIABETESOURCE AT 50 ML/HR. NO RESIDUAL NOTED. THERE IS A #24 ON THE RIGHT FOREARM SALINE LOCK THAT IS DRY AND INTACT. THERE IS ALSO A #22 ON THE RIGHT FOREARM RECEIVING D5 1/2 NS WITH 10 MEQ KCL AT 70 ML/HR. SITE IS DRY, INTACT AND PATENT. THERE IS A ROMERO CATHETER PRESENT WITH SMALL AMOUNT OF CLEAR YELLOW URINE NOTED. VITAL SIGNS WNL. HOB AT 30 DEGREES WITH BED IN LOW POSITION. CONTINUE TO MONITOR PATIENT.
--- NOTE | 2016-11-10 20:10 | NUR ---
FAMILY AT BEDSIDE.
--- NOTE | 2016-11-10 20:40 | NUR ---
PATIENT HAD SMALL BM. PERINEAL CARE PROVIDED.
--- NOTE | 2016-11-10 20:43 | NUR ---
PATIENT REPOSITIONED FOR COMFORT.
--- NOTE | 2016-11-10 22:02 | NUR ---
PATIENT'S FAMILY REQUESTED SCDS TO HELP WITH CIRCULATION. EXPLAINED TO FAMILY THAT PATIENT RECEIVES LOVENOX PER VTE PROPHYLAXIS. PATIENT'S FAMILY STILL WOULD LIKE PATIENT TO HAVE SCDS. WILL ENDORSE TO DAY SHIFT RN.
--- NOTE | 2016-11-10 22:11 | NUR ---
PATIENT'S SISTER GERI, NIECE, AND PATIENT'S DAUGHTER LEFT UNIT.
[2016-11-11] VITALS (24 sets, daily range): BP systolic 90–120; BP diastolic 61–75
--- NOTE | 2016-11-11 00:56 | NUR ---
PATIENT SLEEPING IN BED. VITALS ARE WNL. NO SIGNS OF SOB OR RESPIRATORY DISTRESS NOTED. CONTINUE TO MONITOR.
--- NOTE | 2016-11-11 02:42 | NUR ---
PATIENT SLEEPING IN BED. VITALS ARE WNL. NO SIGNS OF ACUTE DISTRESS NOTED. HOB AT 30 DEGREES WITH BED IN LOW POSITION. CONTINUE TO MONITOR PATIENT.
--- NOTE | 2016-11-11 03:45 | NUR ---
MORNING CARE PROVIDED. BED BATH GIVEN. PATIENT'S BED LINENS AND GOWN CHANGED. REPOSITIONED PATIENT FOR COMFORT. HOB AT 30 DEGREES WITH BED IN LOW POSITION. CONTINUE TO MONITOR PATIENT.
--- NOTE | 2016-11-11 04:08 | NUR ---
DATABASE PROGRAMMER AT BEDSIDE FOR SCHEDULED LAB DRAW.
--- NOTE | 2016-11-11 05:10 | NUR ---
PATIENT ASLEEP IN BED. VITALS ARE WNL. NO SIGNS OF ACUTE DISTRESS NOTED. HOB AT 30 DEGREES WITH BED IN LOW POSITION. CONTINUE TO MONITOR PATIENT.
[2016-11-11] MEDS: PIPER/TAZO 3.375GM/D5W PREMIX 50 ML IV SCH ×4 (05:28→23:31)
--- NOTE | 2016-11-11 06:14 | NUR ---
CERTIFICATION AND SELECTION SPECIALIST AT BEDSIDE FOR SCHEDULED XRAY.
[2016-11-11] MEDS ORDERED: POTASSIUM CHLORIDE 20% 40 MEQ/15 ML UDC GT ONE (06:20)
[2016-11-11] MEDS: POTASSIUM CHL 10 MEQ/D5-1/2NS 1,000 ML IV SCH (06:29)
[2016-11-11] MEDS: BLOOD GLUCOSE MONITORING 1 DEV DEV FS SCH ×4 (06:46→20:46)
[2016-11-11] MEDS: INSULIN LISPRO SLIDING SCALE 100 UNITS/ML VIAL SUBQ PRN ×2 (06:47→15:10)
--- NOTE | 2016-11-11 07:15 | NUR ---
PATIENT SLEEPING IN BED. NO SIGNS OF ACUTE DISTRESS NOTED. ALL NEEDS ATTENDED TO DURING SHIFT. ENDORSED CONTINUITY OF CARE TO MIGUEL ALMAGUER.
--- NOTE | 2016-11-11 07:30 | NUR ---
RECEIVED DNR PT FROM YANI ARROYO MILKING MACHINE MECHANIC. PT LETHARGIC, BUT AROUSABLE WITH INITIAL ASSESSMENT. MITTENS APPLIED TO BOTH WRISTS FOR PT SAFETY. PT HAS BIPAP ON WITH I/E 12/5, RATE 12, AND FIO2=30% SETTING. LUNGS SOUND DIMINISHED TO BASES. NO SOB/WOB. RESP PATTERN UNLABORED. NO COUGHING. PT HAS IVF D5 0.45% NS + 10 MEQ KCL AT RATE 70 ML/HR FREELY INFUSING TO IV CATH #22 AT RIGHT FOREARM. ALSO, PT HAS IV CATH# 24 AT RIGHT FOREARM, FREELY FLUSHED, SALINE LOCKED. ALL IV CATHS INTACT, NO IV SITES COMPLICATIONS. SINUS TACHYCARDIA ON CERTIFIED DRUG COUNSELOR. S1S2. NO JVD. CAP REFILL < 3 SECONDS. PT HAS PULSES TO BUE AND BLE. NO EDEMA. ABDOMEN SOFT, NON DISTENTION. BOWEL SOUND PRESENT WITH ALL QUADRANTS. PT HAS NGT TO TF WITH DIABETISOURCE AT 50 ML/HR WITH FREE WATER 200 ML FLUSHED Q6H. TF PLACEMENT CONFIRMED. RESIDUAL CHECKED, NO RESIDUAL NOTED. NO VOMITING. PT HAS SMALL AMOUNT OF BM, YELLOWISH COLOR NOTED. PT HAS ROMERO CATH IN PLACE, DRAINING BY GRAVITY WITH FAIR AMOUNT OF CLEAR YELLOW URINE. NO BLADDER DISTENTION. SKIN WARM AND DRY, NON INTACT (SEE WOUND ASSESSMENT AND WOUND CARE ORDERED). NORMAL SKIN COLOR WITH ETHNICITY. GENERALIZED WEAKNESS, REPOSITIONING AND OFFLOADING PRESSURE AREAS WARRANT. AFEBRILE. FLACC 0. SAFETY MEASURE MAINTAINED. FALL RISK, SEIZURES, PRESSURE ULCERS, AND ASPIRATION PRECAUTIONS. CONTINUE COLLABORATING WITH INTERDISCIPLINARY HEALTH RN TRANSFER, FOLLOWING UP AND CARRYING OUT MD'S ORDER, UPDATING POC NEEDED, AND FREQUENTLY PERFORMING PT SAFETY ROUNDING.
--- NOTE | 2016-11-11 07:54 | NUR ---
RECEIVED PT ON BIPAP UGARTE ON ST 12\5 RR12 FIO2 30 ALARMS ARE ON AND FUNCTIONAL PT IN HF\QUIET WEARING F\F MASK SIZE MED BS CL\DIM BIPAP PLUGGED INTO RED OUTLET Addendum: 11/11/16 at 0848 by Elizabeth Garcia RT PROTECTA-GEL UNDER MASK
[2016-11-11] MEDS: FAMOTIDINE 20 MG/2 ML VIAL IV SCH (08:37)
[2016-11-11] MEDS: SACCHAROMYCES 250 MG CAP PO SCH ×2 (08:38→20:46)
[2016-11-11] MEDS: lamoTRIgine 25 MG TAB PO SCH ×2 (08:38→20:46)
[2016-11-11] MEDS: ENOXAPARIN 40 MG/0.4 ML SYR SUBQ SCH (08:41)
[2016-11-11] MEDS: INSULIN DETEMIR 100 UNITS/ML 10 ML VIAL SUBQ SCH (08:48)
--- NOTE | 2016-11-11 08:55 | NUR ---
DR. ORLANDO PRESENTED IN ICU TO REVIEW PT'S CHART. UPDATED PT CONDITION NEEDED. WILL F/U THE ORDER.
--- NOTE | 2016-11-11 09:04 | NUR ---
BIPAP CHECK BS CL\DIM
[2016-11-11] MEDS ORDERED: POTASSIUM CHLORIDE 20% 40 MEQ/15 ML UDC GT SCH (09:40)
--- NOTE | 2016-11-11 09:52 | NUR ---
COY RESULTS REPORTED TO DR JUAN Addendum: 11/11/16 at 1004 by Elizabeth BACA WRONG PT.
[2016-11-11] MEDS: POTASSIUM CHL 20 MEQ/ 1/2 NS 1,000 ML IV SCH ×2 (10:35→21:25)
--- NOTE | 2016-11-11 11:17 | NUR ---
BIPAP CHECK BS CL\DIM
--- NOTE | 2016-11-11 12:59 | NUR ---
BIPAP CHECK BS CL\DIM
--- NOTE | 2016-11-11 13:28 | NUR ---
PT'S FAMILY AT BEDSIDE. PER PT'S SON VIOLET NEGRO, THEY WOULD LIKE TO CHANGE PT'S CODE STATUS TO FULL CODE.
--- NOTE | 2016-11-11 13:29 | NUR ---
PT FAMILY MEMBER REQUESTED FULL CODE STATUS. NOTIFIED DR. ORLANDO.
--- NOTE | 2016-11-11 13:30 | NUR ---
DR. ORLANDO NOTIFIED OF PT'S NEW CODE STATUS. ORDER GIVEN.
--- NOTE | 2016-11-11 13:58 | NUR ---
DR. HILL PRESENTED IN ICU TO ASSESS PT AND REVIEW PT CHART, DISCUSSED MEDICAL PLAN WITH PT FAMILY MEMBERS. UPDATED PT CONDITION NEEDED. WILL FOLLOW UP THE ORDER.
--- NOTE | 2016-11-11 15:02 | NUR ---
BIPAP CHECK BS CL\DIM GEL REMAINS UNDER MASK
[2016-11-11] MEDS: LEVOFLOXACIN 500 MG/D5W PREMIX 100 ML IV SCH (16:00)
--- NOTE | 2016-11-11 19:07 | NUR ---
HANDED OFF CONTINUITY OF CARE TO YANI ARROYO HOT DIMPLING MACHINE OPERATOR. PT STILL ON BIPAP WITH SAME SETTING. NO SIGN OF RESP DISTRESS/SOB. AFEBRILE. FLACC 0.
--- NOTE | 2016-11-11 19:30 | NUR ---
RECEIVED REPORT FROM MIGUEL ALMAGUER. PATIENT IS SLEEPING IN BED. NO SIGNS OF SOB NOTED. PATIENT IS ON BIPAP WITH SETTINGS OF I/E 12/5, FIO2 AT 30%, AND RATE OF 12. BREATH SOUNDS ARE DIMINISHED ON AUSCULTATION. THERE ARE BOWEL SOUNDS PRESENT. THERE IS A NGT PRESENT IN THE PATIENT'S RIGHT NARES RECEIVING DIABETESOURCE AT 50 ML/HR. PATIENT TOLERATING TUBE FEEDING WELL WITH NO RESIDUAL NOTED. THERE IS A #24 ON THE RIGHT FOREARM SALINE LOCK THAT IS DRY AND INTACT. THERE IS ALSO A #22 ON THE RIGHT FOREARM RECEIVING 1/2 NS WITH 20 MEQ KCL AT 80 ML/HR. SITE IS DRY, INTACT AND PATENT. THERE IS A ROMERO CATHETER PRESENT WITH MODERATE AMOUNT OF CLEAR YELLOW URINE NOTED. VITAL SIGNS WNL. HOB AT 30 DEGREES WITH BED IN LOW POSITION. CONTINUE TO MONITOR PATIENT.
--- NOTE | 2016-11-11 19:33 | NUR ---
PT RECEIVED FROM [facility] ON NOTED BIPAP SETTINGS. PT QUIET, HAS A FULL/MED SIZE FACE MASK SECURE IN PLACE WITH GEL PROTECTOR ON. BREATH SOUNDS CLEAR DIMINISHED BILATERALLY, NO DISTRESS/SOB/WHEEZING NOTED AT THIS TIME. NO INDICATION FOR HHN PRN TX. BIPAP ALARMS ON AND AUDIBLE, BIPAP PLUGGED INTO RED ELECTRICAL OUTLET.
--- NOTE | 2016-11-11 20:52 | NUR ---
PATIENT TOLERATED SCHEDULED MEDICATIONS WELL. NO SIGNS OF SOB OR DISCOMFORT NOTED. BLOOD SUGAR IS 99. NO INSULIN COVERAGE NEEDED AT THIS TIME. HOB AT 30 DEGREES WITH BED IN LOW POSITION CONTINUE TO MONITOR PATIENT.
--- NOTE | 2016-11-11 21:03 | NUR ---
PATIENT HAD SCANT AMOUNT OF SOFT BROWN BM. PERINEAL CARE PROVIDED. PATIENT REPOSITIONED FOR COMFORT. NO SIGNS OF DISTRESS NOTED. HOB AT 30 DEGREES WITH BED IN LOW POSITION. CONTINUE TO MONITOR PATIENT.
--- NOTE | 2016-11-11 21:15 | NUR ---
BIPAP CHECKED. PT RESTING COMFORTABLY, NO DISTRESS/SOB NOTED.
--- NOTE | 2016-11-11 22:57 | NUR ---
CHECKED RESIDUAL. NO RESIDUAL NOTED. PATIENT TOLERATING NGT FEEDING WELL. CONTINUE TO MONITOR.
--- NOTE | 2016-11-11 23:35 | NUR ---
ROUNDED ON PATIENT. PATIENT ASLEEP IN BED WITH NO SIGNS OF SOB NOTED. HOB AT 30 DEGREES WITH BED IN LOW POSITION. CONTINUE TO MONITOR PATIENT.
--- NOTE | 2016-11-11 23:40 | NUR ---
BIPAP CHECKED. PT ASLEEP, BREATH SOUNDS CLEAR DIMINISHED BILATERALLY, NO DISTRESS/SOB NOTED. NO INDICATION FOR HHN PRN TX.
[2016-11-12] VITALS (24 sets, daily range): BP systolic 93–116; BP diastolic 53–73
--- NOTE | 2016-11-12 01:14 | NUR ---
BIPAP CHECKED. PT ASLEEP, NO DISTRESS/SOB NOTED.
[2016-11-12] MEDS: POTASSIUM CHL 20 MEQ/ 1/2 NS 1,000 ML IV SCH (01:37)
--- NOTE | 2016-11-12 02:12 | NUR ---
ROUNDED ON PATIENT. PATIENT SLEEPING IN BED. NO SIGNS OF SOB NOTED. HOB AT 30 DEGREES WITH BED IN LOW POSITION. CONTINUE TO MONITOR PATIENT.
--- NOTE | 2016-11-12 03:25 | NUR ---
BIPAP CHECKED. PT ASLEEP, BREATH SOUNDS CLEAR/DIMINISHED. NO DISTRESS/SOB WHEEZING NOTED AT THIS TIME. NO INDICATION FOR HHN PRN TX.
--- NOTE | 2016-11-12 04:01 | NUR ---
MORNING CARE RENDERED. BED BATH PROVIDED. CHANGED GOWN AND LINENS. REPOSITIONED FOR COMFORT. HOB AT 30 DEGREES WITH BED IN LOW POSITION. CONTINUE TO MONITOR PATIENT.
--- NOTE | 2016-11-12 05:02 | NUR ---
TIME CYCLE OPERATOR AT BEDSIDE FOR SCHEDULED LAB DRAW.
[2016-11-12] MEDS: PIPER/TAZO 3.375GM/D5W PREMIX 50 ML IV SCH ×3 (05:29→17:20)
--- NOTE | 2016-11-12 06:01 | NUR ---
CUTTING MACHINE OFFBEARER AT BEDSIDE FOR SCHEDULED CHEST XRAY.
[2016-11-12] MEDS: BLOOD GLUCOSE MONITORING 1 DEV DEV FS SCH ×4 (06:22→21:05)
[2016-11-12] MEDS: INSULIN LISPRO SLIDING SCALE 100 UNITS/ML VIAL SUBQ PRN ×4 (06:29→21:08)
--- NOTE | 2016-11-12 06:32 | NUR ---
REC'D PT ON AUDREY V60 BIPAP SETTINGS / RR 12 FIO2 30% ALARMS ON AND FUNCTIONING PROPERLY AMBU BAG AT SIDE OF BIPAP AND BIPAP IS PLUGGED INTO RED OUTLET, NO HHN GIVEN AT THIS TIME, B\S ARE DIMINISHED BILATERALLY, PT IS ASLEEP WITH NO SIGNS OF DISTRESS NOTED AT THIS TIME
--- NOTE | 2016-11-12 06:49 | NUR ---
CRITICAL LAB VALUE RECEIVED. HGB 6.6. CHARGE NURSE SHAWNEE ALMAGUER LEFT FOR DR. ORLANDO AT [phone]. WILL WAIT FOR CALL BACK.
--- NOTE | 2016-11-12 07:13 | NUR ---
SPOKE TO DR. ORLANDO. INFORMED DOCTOR OF PATIENT'S HGB IS 6.6. DR. ORLANDO GAVE NEW ORDERS TO HOLD OFF LOVENOX AND TO TRANSFUSE TWO UNITS OF PRBC. WILL ENDORSE TO DAY SHIFT.
--- NOTE | 2016-11-12 07:23 | NUR ---
ENDORSED CONTINUITY OF CARE TO MARIBELL ALMAGUER.
--- NOTE | 2016-11-12 07:30 | NUR ---
RECEIVED REPORT FROM DINA ALMAGUER. PATIENT IS SLEEPING IN BED. NO SIGNS OF SOB NOTED. PATIENT IS ON BIPAP WITH SETTINGS OF I/E 12/5, FIO2 AT 30%, AND RATE OF 12. BREATH SOUNDS ARE DIMINISHED ON AUSCULTATION. THERE ARE BOWEL SOUNDS PRESENT. THERE IS A NGT PRESENT IN THE PATIENT'S RIGHT NARES RECEIVING DIABETASOURCE AT 50 ML/HR. PATIENT TOLERATING TUBE FEEDING WELL WITH NO RESIDUAL NOTED. THERE IS A #24 ON THE RIGHT FOREARM SALINE LOCK THAT IS DRY AND INTACT. THERE IS ALSO A #22 ON THE RIGHT FOREARM RECEIVING 1/2 NS WITH 20 MEQ KCL AT 80 ML/HR. SITE IS DRY, INTACT AND PATENT. THERE IS A ROMERO CATHETER PRESENT WITH MODERATE AMOUNT OF CLEAR YELLOW URINE NOTED. VITAL SIGNS WNL. HOB AT 30 DEGREES WITH BED IN LOW POSITION. CONTINUE TO MONITOR PATIENT. PT REPOSITIONED, WILL CONTINUE TO MONITOR
[2016-11-12] MEDS: FAMOTIDINE 20 MG/2 ML VIAL IV SCH (08:15)
[2016-11-12] MEDS: SACCHAROMYCES 250 MG CAP PO SCH ×2 (08:15→21:05)
[2016-11-12] MEDS: lamoTRIgine 25 MG TAB PO SCH ×2 (08:15→21:05)
[2016-11-12] MEDS: INSULIN DETEMIR 100 UNITS/ML 10 ML VIAL SUBQ SCH (08:23)
[2016-11-12] MEDS: ENOXAPARIN 40 MG/0.4 ML SYR SUBQ SCH (08:28)
[2016-11-12] MEDS: Z-GUARD PASTE TP SCH (08:29)
--- NOTE | 2016-11-12 08:29 | NUR ---
LOVENOX HELD PER MD ORDER DUE TO PT'S LOW HBG
--- NOTE | 2016-11-12 09:06 | NUR ---
BIPAP CHECK, PT IS RESTING WITH NO SIGNS OF DISTRESS NOTED AT THIS TIME
--- NOTE | 2016-11-12 09:28 | NUR ---
HILARIO NEGRO AT BEDSIDE
--- NOTE | 2016-11-12 10:00 | NUR ---
SON JOSSELYN NEGRO AND DAUGHTER IN AR AT BED SIDE,
--- NOTE | 2016-11-12 10:35 | NUR ---
BIPAP CHECK, PT IS RESTING WITH NO SIGNS OF DISTRESS NOTED AT THIS TIME
--- NOTE | 2016-11-12 11:18 | NUR ---
BLOOD TRANSFUSION STARTED
--- NOTE | 2016-11-12 11:42 | NUR ---
PT STABLE, NO S/S OF ANY REACTION FROM BLOOD TRANSFUSION NOTED.
[2016-11-12] MEDS: NACL 0.45% 1,000 ML IV SCH (11:55)
--- NOTE | 2016-11-12 13:00 | NUR ---
NO S/S OF ANY BLOOD TRANSFUSION REACTION NOTED, WILL CONTINUE TO MONITOR
--- NOTE | 2016-11-12 13:03 | NUR ---
BIPAP CHECK, B\S ARE DIMINISHED AND PT IS RESTING WITH NO SIGNS OF DISTRESS NOTED AT THIS TIME
--- NOTE | 2016-11-12 14:45 | NUR ---
SECOND UNIT OF BLOOD IS STARTED, PT VSS, WILL MONITOR PT CLOSELY.
--- NOTE | 2016-11-12 15:21 | NUR ---
BIPAP CHECK, PT IS RESTING WITH NO SIGNS OF DISTRESS NOTED AT THIS TIME
--- NOTE | 2016-11-12 16:43 | NUR ---
BIPAP CHECK, PT IS RESTING WITH NO SIGNS OF DISTRESS NOTED AT THIS TIME
--- NOTE | 2016-11-12 17:14 | NUR ---
PT ASLEEP, COMFORTABLE, BED BATH GIVEN, NO S/S OF ANY DISTRESS NOTED
[2016-11-12] MEDS: LEVOFLOXACIN 500 MG/D5W PREMIX 100 ML IV SCH (17:20)
--- NOTE | 2016-11-12 17:45 | NUR ---
SECOND UNIT OF BLOOD TRANSFUSION COMPLETED, NO S/S OF ANY REACTION NOTED
--- NOTE | 2016-11-12 18:27 | NUR ---
PT REPOSITIONED , ORAL CARE PROVIDED, ORAL CAVITY DRY AND CHAPPED, NO BLEEDING NOTED, WILL CONTINUE TO MONITOR AND KEEP ORAL CAVITY MOIST.
[2016-11-12] MEDS: IPRATROPIUM 0.02% 0.5 MG/2.5 ML NEBU INH PRN (18:46)
[2016-11-12] MEDS: ALBUTEROL 0.083% 2.5 MG/3 ML NEBU INH PRN (18:46)
--- NOTE | 2016-11-12 19:11 | NUR ---
REPORT GIVEN TO TRIPP JORGE , WILL CONTINUE CARE FOR THE PT.
--- NOTE | 2016-11-12 19:25 | NUR ---
RECEIVED REPORT FROM DAY NURSEMARIBELL. PATIENT RESTING IN BED, CURRENTLY ON BIPAP. SETTINGS: 12/, O2 30%, RR 12. PATIENT TOLERATING WELL. NO RESPIRATORY DISTRESS, SOB, OR DISCOMFORT NOTED AT THIS TIME. INITIAL ASSESSMENT AND BODY CHECK DONE. PATIENT IS LETHARGIC, WOUND NOTED TO SACRAL AREA, COVERED WITH DRESSING; DRY AND INTACT. IV ACCESS TO RIGHT WRIST 22G, 24G; BOTH PORTS PATENT. NGT NOTED TO RIGHT NARE INFUSING DIABETISOURCE AC AT 50 ML/HR; PATIENT TOLERATING WELL. NO RESIDUAL NOTED AT THIS TIME. PATIENT HAS F/C IN PLACE DRAINING CLEAR YELLOW. DISCUSSED PLAN OF CARE, MEDICATION REGIMENT AND PAIN MANAGEMENT WITH PATIENT. PLACED PATIENT ON SAFETY/FALL/ASPIRATION/PRESSURE ULCER PRECAUTIONS. PATIENT POSITION FOR COMFORT. HOB 30 DEGREES, BED IN LOWEST POSITION, SIDE RAILS UP. WILL CONTINUE TO MONITOR.
--- NOTE | 2016-11-12 21:05 | NUR ---
DUE MEDICATIONS ADMINISTERED. PATIENT TOLERATED WELL. NO RESPIRATORY DISTRESS, SOB, OR DISCOMFORT. PATIENT POSITIONED FOR COMFORT, HOB ELEVATED TO 30 DEGREES, BED IN LOWEST POSITION, SIDE RAILS UP. WILL CONTINUE TO MONITOR.
--- NOTE | 2016-11-12 21:20 | NUR ---
DR. SEARS IN TO SEE PATIENT. UPDATED ON PATIENT STATUS, MD VERBALIZED UNDERSTANDING, MD PLACING NEW ORDERS.
[2016-11-12] MEDS ORDERED: VANCOMYCIN PER PHARMACY MC PRN (21:30)
[2016-11-12] MEDS ORDERED: VANCOMYCIN 1,000 MG VIAL ONE (21:59)
[2016-11-12] MEDS ORDERED: VANCOMYCIN 750 MG in DEXTROSE 5% 250 ML IV SCH (22:00)
--- NOTE | 2016-11-12 23:21 | NUR ---
PATIENT IN BED, RESTING. OPENS EYES SPONTANEOUSLY, STILL LETHARGIC. NO RESPIRATORY DISTRESS, SOB, OR DISCOMFORT. BED IN LOWEST POSITION, SIDE RAILS UP, HOB ELEVATED TO 30 DEGREES. WILL CONTINUE TO MONITOR.
[2016-11-13] VITALS (17 sets, daily range): BP systolic 98–119; BP diastolic 61–77
--- NOTE | 2016-11-13 01:02 | NUR ---
PATIENT SLEEPING, BIPAP STILL IN PLACE; NO CHANGE IN SETTINGS. PATIENT TOLERATING WELL. NO RESPIRATORY DISTRESS, SOB, OR DISCOMFORT. PATIENT POSITIONED FOR COMFORT, HOB ELEVATED TO 30 DEGREES, SIDE RAILS UP. WILL CONTINUE TO MONITOR.
[2016-11-13] MEDS: NACL 0.45% 1,000 ML IV SCH ×2 (02:13→16:24)
--- NOTE | 2016-11-13 03:08 | NUR ---
AM CARE RENDERED. PATIENT TOLERATED WELL. NO RESPIRATORY DISTRESS, SOB, OR DISCOMFORT. PATIENT POSITIONED FOR COMFORT, BED IN LOWEST POSITION, SIDE RAILS UP, HOB ELEVATED 30 DEGREES. WILL CONTINUE TO MONITOR.
[2016-11-13] MEDS ORDERED: MEROPENEM 500 MG VIAL IV ONE (03:37)
[2016-11-13] MEDS: MEROPENEM 1,000 MG in NACL 0.9% 100 ML IV SCH ×3 (05:01→21:05)
--- NOTE | 2016-11-13 05:08 | NUR ---
PATIENT RESTING COMFORTABLY IN BED. NO RESPIRATORY DISTRESS, SOB, OR DISCOMFORT. PATIENT POSITIONED FOR COMFORT, BED IN LOWEST POSITION, SIDE RAILS UP, HEAD OF BED ELEVATED 30 DEGREES. WILL CONTINUE TO MONITOR.
--- NOTE | 2016-11-13 06:30 | NUR ---
RECEIVED PT ON UGARTE BIPAP ST 12\5 RR 12 FIO2 30 ALARMS ARE ON AND FUNCTIONAL PT IN HF ASLEEP WEARING F\F MASK SIZE MED BS CL\DIM NO DISTRESS NOTED BIPAP PLUGGED INTO RED OUTLET PT WEARING SOFT MITTENS Addendum: 11/13/16 at 0858 by Elizabeth Garcia RT GEL UNDER MASK
[2016-11-13] MEDS: BLOOD GLUCOSE MONITORING 1 DEV DEV FS SCH ×4 (06:39→21:07)
[2016-11-13] MEDS: INSULIN LISPRO SLIDING SCALE 100 UNITS/ML VIAL SUBQ PRN ×3 (06:40→21:23)
--- NOTE | 2016-11-13 07:00 | NUR ---
REPORT GIVEN TO DAY NURSE, MARIBELL RN, FOR CONTINUITY OF CARE. PATIENT RESTING IN BED. NO RESPIRATORY DISTRESS, SOB, OR DISCOMFORT. PATIENT POSITIONED FOR COMFORT. HOB BED ELEVATED 30 DEGREES, BED IN LOWEST POSITION, SIDE RAILS UP.
--- NOTE | 2016-11-13 07:30 | NUR ---
RECEIVED REPORT FROM TRIPP JORGE. PATIENT IS SLEEPING IN BED. NO SIGNS OF SOB NOTED. PATIENT IS ON BIPAP WITH SETTINGS OF I/E 12/5, FIO2 AT 30%, AND RATE OF 12. BREATH SOUNDS ARE DIMINISHED ON AUSCULTATION. THERE ARE BOWEL SOUNDS PRESENT. THERE IS A NGT PRESENT IN THE PATIENT'S RIGHT NARES RECEIVING DIABETASOURCE AT 50 ML/HR. PATIENT TOLERATING TUBE FEEDING WELL WITH NO RESIDUAL NOTED. THERE IS A #24 ON THE RIGHT FOREARM SALINE LOCK THAT IS DRY AND INTACT. THERE IS ALSO A #22 ON THE RIGHT FOREARM RECEIVING 1/2 NS WITH 1/2 NS 70 ML/HR. SITE IS DRY, INTACT AND PATENT. THERE IS A ROMERO CATHETER PRESENT WITH MODERATE AMOUNT OF CLEAR YELLOW URINE NOTED. VITAL SIGNS WNL. HOB AT 30 DEGREES WITH BED IN LOW POSITION. CONTINUE TO MONITOR PATIENT. PT REPOSITIONED, WILL CONTINUE TO MONITOR
--- NOTE | 2016-11-13 08:00 | NUR ---
REPOSITIONED, PT ASLEEP, NO S/S OF ANY DISTRESS AT THIS TIME
--- NOTE | 2016-11-13 08:15 | NUR ---
DR. ORLANDO AT BEDSIDE. UPDATED MD WITH NEW LABS AND PT'S CONDITION.
--- NOTE | 2016-11-13 08:43 | NUR ---
BIPAP CHECK BS CL\DIM GEL UNDER MASK
[2016-11-13] MEDS: SACCHAROMYCES 250 MG CAP PO SCH ×2 (08:45→21:06)
[2016-11-13] MEDS: FAMOTIDINE 20 MG/2 ML VIAL IV SCH (08:45)
[2016-11-13] MEDS: lamoTRIgine 25 MG TAB PO SCH ×2 (08:45→21:06)
[2016-11-13] MEDS: POTASSIUM CHLORIDE 20% 40 MEQ/15 ML UDC GT SCH (08:45)
[2016-11-13] MEDS: INSULIN DETEMIR 100 UNITS/ML 10 ML VIAL SUBQ SCH (08:47)
--- NOTE | 2016-11-13 09:16 | NUR ---
HILARIO NEGRO AT BEDSIDE, PT ASLEEP, COMFORTABLE, WILL CONTINUE TO MONITOR
--- NOTE | 2016-11-13 09:43 | NUR ---
SS NOTE: I SPOKE WITH PT'S SON, DASIA SANON ([phone]). HE STATED THAT HE, HIS SISTER AND HIS BROTHER WOULD LIKE PT TO BE MOVED TO A SNF IN THE IN AREA. I INFORMED HIM THAT GROUP HOME BEDS CAN BE DIFFICULT TO FIND BUT WE WILL ATTEMPT TO SEE IF THERE ARE ANY AVAILABLE FACILITIES. HE ALSO STATED THAT THEY ARE IN AGREEMENT WITH PT RETURNING TO THE [facility] IF A SNF IN THE [facility] IS NOT AVAILABLE.
[2016-11-13] MEDS ORDERED: POTASSIUM CHLORIDE 20% 40 MEQ/15 ML UDC GT SCH (10:03)
--- NOTE | 2016-11-13 10:54 | NUR ---
BIPAP REMOVED BY PARAS ESPARZA AND STONE FOR ORAL CARE NT TUBE 3L N\C PLACED SPO2 93 Addendum: 11/13/16 at 1107 by Elizabeth Garcia RT MARIBELL
--- NOTE | 2016-11-13 11:45 | NUR ---
PT AALEEP, NO S/S OF ANY DISTRESS NOTED, WILL CONTINUE TO MONITOR.
--- NOTE | 2016-11-13 13:39 | NUR ---
PT REPOSITIONED, ORAL CARE GIVEN, NO S/S OF ACUTE DISTRESS NOTED.
--- NOTE | 2016-11-13 14:33 | NUR ---
11/13/[address] FOLLOW UP COMPLETED PLEASE REFER TO NUTRITION ASSESSMENT UNDER CARE ACTIVITY FOR ESTIMATED NUTRITIONAL NEEDS. RD RECOMMENDATIONS: 1. CONTINUE NUTRITION SUPPORT DIABETISOURCE AT 50 ML/HR WITH 200 ML FREE WATER FLUSH Q6H VIA NGTUBE TOLERATED --ADEQUATE TO MEET >97% OF PT ESTIMATED KCAL AND PROTEIN NEEDS. 2. RECOMMEND ADDING PROSOURCE BID FOR ADDITIONAL 120 KCAL AND 30 GM PROTEIN DAILY TO AID IN WOUND HEALING AND D/T PT WITH LOW ALBUMIN. 3. SHOULD PT BE WEANED FROM RESPIRATORY SUPPORT, CONSIDER SWALLOW EVALUATION TO ASSESS IF PT SAFE FOR PO INTAKE 4. SHOULD PT REQUIRE ASSISTED NUTRITION SUPPORT CONSIDER PLACEMENT OF GTUBE 5. RD WILL F/U 2-3 DAYS; HIGH RISK. TRAVIS [address] RD
[2016-11-13] MEDS ORDERED: VANCOMYCIN 750 MG in DEXTROSE 5% 250 ML IV SCH (16:00)
[2016-11-13] MEDS: LEVOFLOXACIN 500 MG/D5W PREMIX 100 ML IV SCH (16:23)
--- NOTE | 2016-11-13 17:19 | NUR ---
BIPAP REMOVED 3L N\C PLACED SPO2 98
--- NOTE | 2016-11-13 18:06 | NUR ---
DR. HILL AT BEDSIDE, UPDATED WITH RECENT LABS AND PTS STATUS
--- NOTE | 2016-11-13 19:31 | NUR ---
REPORT GIVEN TO DAVID ALMAGUER, WILL CONTINUE TO CARE FOR THE PT.
--- NOTE | 2016-11-13 19:32 | NUR ---
RECEIVED REPORT FROM TRIPP REYNA. INITIAL ASSESSMENT COMPLETED. PT AWAKE AT THIS TIME. ATTACHED TO MEDIA COORDINATOR AND PULSE OXIMETER. ON NASAL CANNULA AT 3LPM VIA NASAL CANNULA. NGT IN PLACE. ON CONTINUOUS NGT FEEDING. TOLERATED WELL AT THIS TIME. IVF ACCESS AT RIGHT FOREARM 22G, IVF INFUSING WELL, ON SALINE LOCK AT RIGHT HAND 24G, PATENT, INTACT AT THIS TIME. WOUND DRESSING DRY AND INTACT. ROMERO CATH IN PLACE, SCDS IN PLACE. BED IN LOW POSITION, SAFETY MEASURE ENSURE. WILL CONTINUE TO MONITOR.
--- NOTE | 2016-11-13 19:55 | NUR ---
RCV'D PT ON 3 L NC. PT IS AWAKE AND QUITE. SAT IS 95%. NO SOB/DISTRESS NOTED. BS CLEAR. WILL CONTINUE TO MONITOR.
--- NOTE | 2016-11-13 21:00 | NUR ---
DR. SEARS IN TO SEE PATIENT, UPDATED OF PT'S CONDITION. WILL FOLLOW UP ORDERS.
[2016-11-14] VITALS (10 sets, daily range): BP systolic 96–131; BP diastolic 63–92
--- NOTE | 2016-11-14 00:28 | NUR ---
PT ASLEEP AT THIS TIME. WILL CONTINUE TO MONITOR.
--- NOTE | 2016-11-14 04:10 | NUR ---
MORNING CARE DONE. NO SIGNS OF DISTRESS/NO SOB NOTED AT THIS TIME.
[2016-11-14] MEDS: MEROPENEM 1,000 MG in NACL 0.9% 100 ML IV SCH ×3 (04:35→20:27)
--- NOTE | 2016-11-14 05:10 | NUR ---
WATER COMMISSIONER AT BEDSIDE FOR AM LABS.
[2016-11-14] MEDS: NACL 0.45% 1,000 ML IV SCH ×2 (06:49→11:50)
[2016-11-14] MEDS: BLOOD GLUCOSE MONITORING 1 DEV DEV FS SCH ×4 (07:00→20:29)
[2016-11-14] MEDS: INSULIN LISPRO SLIDING SCALE 100 UNITS/ML VIAL SUBQ PRN ×3 (07:02→20:34)
--- NOTE | 2016-11-14 07:35 | NUR ---
REPORT GIVEN TO TRIPP GRAMAJO FOR CONTINUITY OF CARE. MORNING CARE DONE, NO SIGNS OF DISTRESS, SOB NOTED.
--- NOTE | 2016-11-14 07:40 | NUR ---
RECEIVED REPORT FROM TRIPP ROBERTS. PT IS NONVERBAL, AWAKE. PT IS ON O2 3L/MIN NC. NGT TO RIGHT NARE TO TUBE FEEDING. IV TO RIGHT HAND #24 AND RIGHT FOREARM #22 PATENT AND INTACT. WOUND NOTED TO SACRUM. DRESSING DRY AND INTACT. SOFT MITTENS IN PLACE. ROMERO CATHETER IN PLACE DRAINING TO GRAVITY DRAINAGE BAG. PT IS CURRENTLY SINUS TACHYCARDIA ON MONITOR. SAFETY PRECAUTIONS IN PLACE WITH BED IN LOWEST POSITION AND SIDE RAILS UP. CALL LIGHT WITHIN REACH. WILL CONTINUE TO MONITOR.
--- NOTE | 2016-11-14 07:45 | NUR ---
DR. ORLANDO IN TO SEE PT. WILL FOLLOW UP ON ORDERS.
[2016-11-14] MEDS: POTASSIUM CHLORIDE 20% 40 MEQ/15 ML UDC GT SCH (08:41)
[2016-11-14] MEDS: lamoTRIgine 25 MG TAB PO SCH ×2 (08:41→20:29)
[2016-11-14] MEDS: SACCHAROMYCES 250 MG CAP PO SCH ×2 (08:41→20:30)
[2016-11-14] MEDS: INSULIN DETEMIR 100 UNITS/ML 10 ML VIAL SUBQ SCH (08:47)
[2016-11-14] MEDS: FAMOTIDINE 20 MG/2 ML VIAL IV SCH (08:47)
[2016-11-14] MEDS: Z-GUARD PASTE TP SCH (08:47)
--- NOTE | 2016-11-14 08:54 | NUR ---
CHECKED TUBE FEEDING RESIDUAL: 50 ML NOTED, RETURNED TO PT. ADMINISTERED MEDICATION ORDERED. PT TOLERATED WELL.
--- NOTE | 2016-11-14 09:53 | NUR ---
CHECKED ON PT. NO SIGNS OF ACUTE DISTRESS NOTED AT THIS TIME. FLACC 0. CALL LIGHT WITHIN REACH.
--- NOTE | 2016-11-14 10:34 | NUR ---
AWAITING RESULTS FOR VANCO TROUGH PRIOR TO ADMINISTRATION.
--- NOTE | 2016-11-14 11:18 | NUR ---
PT TOLERATED MEDS WELL.
--- NOTE | 2016-11-14 11:21 | NUR ---
DR. HILL IN TO SEE PT. WILL FOLLOW UP ON ORDERS.
[2016-11-14] MEDS ORDERED: NACL 0.45% 500 ML IV SCH (11:35)
--- NOTE | 2016-11-14 12:35 | NUR ---
PT WITH PHYSICAL THERAPY
--- NOTE | 2016-11-14 13:00 | NUR ---
CM NOTE: PER GABRIELLE FROM [facility], THEIR DON NEEDS TO SEE H&P AFTER THE SWALLOW EVAL. PER KATHARINE FROM [facility], NO BEDS AVAILABLE. PER PHYLLIS FERRARO FROM [facility], NO BEDS AVAILABLE FOR GROUP HOME. PER LINDY FROM [facility], SHE WILL VERIFY WITH THE DIRECTOR OF ADMISSION FOR THE AVAILABILITY OF BEDS. SHE WILL CALL BACK. PER NORA FROM [facility] ([phone]), 5 FEMALE BEDS AVAILABLE. SENT PATIENTS PACKET TO FAX # [phone] FOR DON'S REVIEW. PER ROSELIA FROM [facility] [place], NO BEDS AVAILABLE. PER SCAR FROM [facility], NO BEDS AVAILABLE. PER NICOLE FROM [facility], NO BEDS AVAILABLE. PER JOHNNIE FROM [facility], NO BEDS AVAILABLE. PER MOI FROM [facility], NO BEDS AVAILABLE. PER MIRIAM FROM [facility], NO BEDS AVAILABLE [facility] [place] [facility], NO ANSWER. PER ROSA FROM [facility] [place], NO BEDS AVAILABLE. PER MONIQUE FROM [facility], NO BED AVAILABLE FOR GROUP HOME. [facility] BEDS AVAILABLE FOR SHORT TERM ONLY. PER GORDON FROM [facility] ), 9 FEMALE BEDS AVAILABLE. FAXED PATIENTS PACKET TO [phone] FOR DON'S REVIEW. PER MARCUS FROM [facility] ([phone]), FEMALE BED AVAILABLE. SENT PATIENTS PACKET TO FAX # [phone]. PER MAKEZNIE FROM [facility], NO BEDS AVAILABLE. PER LOPEZ FROM [facility], SHE WILL ASK CHASITY, [employer], IF THERE'S AVAILABLE FEMALE BED. SHE WILL CALL BACK. PER GERI FROM [facility], NO BEDS AVAILABLE. PER RICH FROM [facility], NO BEDS AVAILABLE. PER AMARJIT FROM [facility] ([phone]), FEMALE BEDS AVAILABLE, SENT PATIENT'S PACKET TO FAX # [phone] PER NATHAN FROM [facility] ([phone]), FEMALE BEDS AVAILABLE, SENT PATIENT'S PACKET TO FAX # [phone]. PER GERI FROM [facility], NO BEDS AVAILABLE. PER ROBINSON FROM [facility], NO BEDS AVAILABLE. PER AUSTIN FROM [facility], NO BEDS AVAILABLE.
[2016-11-14] MEDS: VANCOMYCIN 500 MG in NACL 0.9% 100 ML IV SCH (13:43)
--- NOTE | 2016-11-14 14:21 | NUR ---
NG TUBE FOUND OUT OF PT. RE-INSERTED NG TUBE TO RIGHT NARE, SECURED TO NOSE. PT TOLERATED WELL. ASPIRATED GASTRIC SECRETIONS, AUSCULTATED AIR BOLUS ABOVE LEFT UPPER QUADRANT. CONTINUED TUBE FEEDING WILL CONTINUE TO MONITOR.
--- NOTE | 2016-11-14 15:08 | NUR ---
RECEIVED CALL FROM DEMETRIO FROM [facility], INFORMED THAT SPEECH THERAPIST WILL BE IN AT APPROXIMATELY 1700 FOR SWALLOW EVAL
--- NOTE | 2016-11-14 15:45 | NUR ---
REPORT GIVEN TO TRIPP TRINIDAD. ALL QUESTIONS ANSWERED. PT WILL BE TRANSFERRED TO TELEMETRY RM 123A.
[2016-11-14] MEDS: LEVOFLOXACIN 500 MG/D5W PREMIX 100 ML IV SCH (16:00)
--- NOTE | 2016-11-14 16:42 | NUR ---
PT ON UNIT. NO S/S OF ACUTE DISTRESS. AAOX1, NONVERBAL. IV SITES PATENT AND INTACT. ON O2 3L NC. FLACC-0. DRESSING TO SACRAL WOUND DRY AND INTACT. ROMERO CATHETER PATENT. NG-TUBE IN PLACE IN RIGHT NARE INFUSING WELL. 20 RESIDUAL. PT TOLERATING FEEDING WELL. SCD'S IN PLACE BLE. MITTENS ON HANDS. PT ORIENTED TO ROOM. CALL LIGHT WITHIN REACH. SAFETY MEASURES ENSURED. WILL CONTINUE TO MONITOR.
--- NOTE | 2016-11-14 16:42 | NUR ---
PT TRANSFERRED TO TELEMETRY RM 123A WITH NO ISSUES.
--- NOTE | 2016-11-14 17:38 | NUR ---
* ST NOTE * Bedside Dysphagia and Oral Mechanism exams completed at bedside. Pt tolerating 5/5 alternating PO trials of puree apple sauce 3-5 CCs at a time via a teaspoon w/out s/s of aspiration, but exhibiting an average 11 second delay in laryngeal elevation. Pt also tolerating 5/5 alternating PO trials of honey-thickened apple juice 3-5 CCs at a time via a teaspoon as well w/out s/s of aspiration but also averaging an 8-second delay in laryngeal elevation. It is thus recommended pt's PO diet consistency be modified to Puree textures with Honey-thickened liquids for all meals, with close supervision during PO intake to assure strict aspiration precautions are in place. Also continue enteral feeding via NGT to assure pt receives adequate nutrition & hydration PO considering pt's hx of decreased PO intake at [facility] prior to pt's admission to [facility]. If pt presents with s/s of aspiration or choking, or if PNA persists, place a hold on PO intake and proceed with alternative means of nutrition/NGT only. Pt and caregiver/nursing education completed regarding results of evaluation; benefits of abiding by strict aspiration precautions and recommended PO diet consistency; and prognosis for improvement; with pt and caregiver/nursing agreeable with and verbalizing understanding of clinician's recommendations. Recommend: - PO diet consistency of Puree textures with Honey-thickened liquids for all meals - Close supervision by caregivers/staff during PO intake to assure strict aspiration precautions are in place secondary to pt's hx of aspiration PNA - Pt requires total assistance for feeding - Continue enteral feeding via NGT to assure pt receives adequate nutrition & hydration secondary to pt's hx of poor PO intake at [facility] prior to pt's admission to [facility] - If pt presents with s/s of aspiration/choking, or if PNA persists, place hold on PO intake and resume NPO orders with alternative means of nutrition via NGT only. No further ST follow up recommended at this time. G8996 CK G8997 CJ G8998 CJ NOMS Level 3 Time In/Out: 17:00 - 17:45
--- NOTE | 2016-11-14 19:08 | NUR ---
ENDORSED PLAN OF CARE TO NIGHT RN. PT REMAINS IN STABLE CONDITION.
--- NOTE | 2016-11-14 19:28 | NUR ---
RECEIVED REPORT FROM TRIPP TRINIDAD AT BEDSIDE. INITIAL ASSESSMENT AND BODY CHECK DONE. PATIENT AA TO SELF, EYES OPEN TO BOTH VERBAL AND TACTILE STIMULI, APHASIC, UNABLE TO FOLLOW COMMAND NOR MAKE NEEDS KNOWN AND ON BEDBOUND. PATIENT CURRENTLY LYING DOWN ON THE BED. NO S/S OF DISTRESS OR SOB NOTED. SKIN WARM/ DRY TO TOUCH WITH NORMAL COLOR. DRESSING ON SACRUM REMAINS CLEAN/DRY AND INTACT. NG-TUBE TO RT NARE AND ROMERO CATHETER PATENT/INTACT. DISCUSSED PLAN OF CARE, PAIN MANAGEMENT AND MEDICATION REGIMEN WITH PATIENT, BUT PATIENT UNABLE TO COMPREHEND. PLACED PATIENT ON SAFETY/FALL/ASPIRATION/PRESSURE ULCER PRECAUTIONS AND WILL CONTINUE TO MONITOR WITH REPOSITION Q 2 HOURS. CALL LIGHT LEFT WITHIN REACH.
--- NOTE | 2016-11-14 21:10 | NUR ---
VERIFIED NG-TUBE PLACEMENT AND IT IS IN THE RIGHT PLACE. OBTAINED 10 ML RESIDUAL. THEN, ADMINISTERED DUE MEDICATIONS MD'S ORDERED AND PATIENT TOLERATED WELL.
--- NOTE | 2016-11-14 22:00 | NUR ---
REPOSITION FOR COMFORT/PRESSURE RELIEF AND PATIENT TOLERATED WELL. REMAINED IN STABLE CONDITION WITHOUT APPARENT DISTRESS NOTED. WILL CONTINUE TO MONITOR.
[2016-11-15] VITALS (7 sets, daily range): BP systolic 98–112; BP diastolic 56–75
[2016-11-15] MEDS: VANCOMYCIN 500 MG in NACL 0.9% 100 ML IV SCH (01:04)
--- NOTE | 2016-11-15 01:25 | NUR ---
PATIENT RESTED COMFORTABLY IN BED WITH STABLE CONDITION. NO S/S OF PAIN NOR DISTRESS NOTED. REPOSITION FOR COMFORT/ PRESSURE RELIEF AND OFFLOADED PRESSURE AREAS. DRESSING ON SACRUM REMAINED CLEAN/DRY AND INTACT. WILL CONTINUE TO MONITOR.
[2016-11-15] MEDS: MEROPENEM 1,000 MG in NACL 0.9% 100 ML IV SCH ×3 (04:13→21:01)
--- NOTE | 2016-11-15 04:41 | NUR ---
AM CARE/JUSTIN-CARE/ORAL CARE GIVEN WITH LINENS CHANGED AND REPOSITION FOR COMFORT/PRESSURE RELIEF. PATIENT REMAINED IN STABLE CONDITION AND TOLERATED WELL. SACRUM DRESSING REMAINS CLEAN/INTACT AND NO ADDITIONAL SKIN PROBLEM NOTED. WILL CONTINUE TO MONITOR.
[2016-11-15] MEDS: BLOOD GLUCOSE MONITORING 1 DEV DEV FS SCH ×4 (05:37→21:13)
[2016-11-15] MEDS: INSULIN LISPRO SLIDING SCALE 100 UNITS/ML VIAL SUBQ PRN ×4 (05:39→21:34)
--- NOTE | 2016-11-15 07:10 | NUR ---
ENDORSED PLAN OF CARE TO TRIPP GILLIAM, AT BEDSIDE. PATIENT REMAINED IN STABLE CONDITION AND NO APPARENT DISTRESS NOTED.
--- NOTE | 2016-11-15 07:12 | NUR ---
RECEIVED REPORT FROM RELIEF MAP MODELER NURSE. PT RESTING COMFORTABLY AND AROUSABLE, FLACC0. WOUND NOTED TO SACRUM. ROMERO CATHETER IS FLOWING VIA GRAVITY. NG-TUBE IS PATENT AND RUNNING DIABETIC SOURCE AT 50 ML, PT MICAH WELL. IV IS PATENT AND INTACT. PT IS ON 3L OF O2 VIA NC, VITALS STABLE. SCD'S IN PLACE. SAFETY MEASURES APPLIED. CALL LIGHT WITHIN REACH. WILL CONTINUE TO MONITOR.
[2016-11-15] MEDS: FAMOTIDINE 20 MG/2 ML VIAL IV SCH (09:22)
[2016-11-15] MEDS: POTASSIUM CHLORIDE 20% 40 MEQ/15 ML UDC GT SCH (09:22)
[2016-11-15] MEDS: SACCHAROMYCES 250 MG CAP PO SCH ×2 (09:22→21:01)
[2016-11-15] MEDS: INSULIN DETEMIR 100 UNITS/ML 10 ML VIAL SUBQ SCH (09:23)
--- NOTE | 2016-11-15 09:45 | NUR ---
PT MICAH MEDS WELL.
[2016-11-15] MEDS: lamoTRIgine 25 MG TAB PO SCH ×2 (11:14→21:01)
[2016-11-15] MEDS: NACL 0.45% 1,000 ML IV SCH (11:29)
--- NOTE | 2016-11-15 12:08 | NUR ---
SS NOTE: I SPOKE WITH PT'S SON, MARKY REGARDING PT'S POSSIBLE D/C BACK TO [facility] TODAY AND INFORMED HIM THAT EXTENSIVE EFFORTS HAVE BEEN MADE TO RELOCATE PT TO A SNF IN [place]. HE STATED THAT HE IS IN AGREEMENT WITH PT RETURNING TO [facility] UPON DISCHARGE.
[2016-11-15] MEDS: ACETAMINOPHEN 650 MG SUPP RC PRN (12:31)
--- NOTE | 2016-11-15 12:48 | NUR ---
PT WITH TEMP OF 100.4, MEDICATED PRESCRIBED. REPOSITIONED AND SACRAL DRESSING CHANGED. PT MICAH WELL.
--- NOTE | 2016-11-15 13:53 | NUR ---
SPOKE WITH DR. ORLANDO, ORDERS RECEIVED.
[2016-11-15] MEDS: VANCOMYCIN 750 MG in DEXTROSE 5% 250 ML IV SCH (13:54)
--- NOTE | 2016-11-15 14:46 | NUR ---
PT CHANGED, TURNED, AND REPOSITIONED.
[2016-11-15] MEDS: ALBUTEROL 0.083% 2.5 MG/3 ML NEBU INH PRN (15:51)
[2016-11-15] MEDS: IPRATROPIUM 0.02% 0.5 MG/2.5 ML NEBU INH PRN (16:00)
--- NOTE | 2016-11-15 16:12 | NUR ---
VITALS REMAIN STABLE, WILL CONTINUE TO MONITOR.
--- NOTE | 2016-11-15 16:20 | NUR ---
PHYSICAL THERAPY CO-SIGN The Physical Therapy Progress Notes documented by Baby Nurse have been reviewed. Reviewed/Co-Signed by: Conchita Pinzon Documentation Done by:MADDY ZARAGOZA PTA EMPHASIS ON SAFE POSITIONING, SAFE WEIGHT-SHIFTING TECH, POSTURAL AWARENESS Addendum: 11/16/16 at 1057 by Conchita Pinzon PT Amended: Links added.
[2016-11-15] MEDS: LEVOFLOXACIN 500 MG/D5W PREMIX 100 ML IV SCH (16:39)
--- NOTE | 2016-11-15 19:18 | NUR ---
ENDORSED TO OXYGEN THERAPY TEACHER NURSE IN STABLE CONDITION.
--- NOTE | 2016-11-15 19:45 | NUR ---
RECEIVED PT IN STABLE CONDITION FROM AM NURSE. AWAKE BUT NON VERBAL. ON TELE MONITOR-SR. WITH O23L/NC. GETTING BREATHING TREATMENTS. BEDBOUND. TURN TO SIDES Q2HRS. WITH NGT FEEDING TOLERATING WELL. HOD ELEVATED 30 DEGREES. NO RESIDUAL NOTED. IVF INFUSING WELL ON THE RT HAND #24. CLEAR AND PATENT. WITH ROMERO CATHETER DRAINING TO CLEAR YELLOW URINE. BED ON LOW POSITION. SIDE RAILS UP X2, PADDED FOR SEIZURE PRECAUTIONS. NEED FREQUENT ROUNDS. WILL CONTINUE TO MONITOR.
--- NOTE | 2016-11-15 21:34 | NUR ---
BLOOD SUGAR WAS CHECKED RESULT 168. INSULIN COVERAGE GIVEN. WITH CONTINUOUS NGT FEEDING.
--- NOTE | 2016-11-15 22:00 | NUR ---
TURNED TO RIGHT SIDE . REPOSITIONED FOR COMFORT. NO DISCOMFORT NOR DISTRESS NOTED.
--- NOTE | 2016-11-16 00:30 | NUR ---
REPOSITIONED FOR COMFORT. NO DISTRESS NOTED. WILL CONTINUE TO MONITOR.
[2016-11-16] MEDS: VANCOMYCIN 750 MG in DEXTROSE 5% 250 ML IV SCH ×2 (00:57→13:20)
--- NOTE | 2016-11-16 02:00 | NUR ---
REPOSITIONED PT BY TURNING TO RT SIDE. NGT IN PLACED WITH FEEDING TOLERATING WELL.
[2016-11-16 03:45] VITALS: BP 99/59
--- NOTE | 2016-11-16 04:00 | NUR ---
SLEEPING WELL AT THIS TIME. NO S/S OF ANY DISTRESS NOTED. WILL CONTINUE TO MONITOR.
[2016-11-16] MEDS: MEROPENEM 1,000 MG in NACL 0.9% 100 ML IV SCH ×3 (04:44→21:03)
--- NOTE | 2016-11-16 04:45 | NUR ---
HAD A SMALL SOFT YELLOW BM. CLEANED AND KEPT DRY. REPOSITIONED FOR COMFORT.
[2016-11-16] MEDS: BLOOD GLUCOSE MONITORING 1 DEV DEV FS SCH ×4 (06:19→21:14)
[2016-11-16] MEDS: INSULIN LISPRO SLIDING SCALE 100 UNITS/ML VIAL SUBQ PRN ×4 (06:26→21:53)
--- NOTE | 2016-11-16 06:26 | NUR ---
BLOOD SUGAR THIS AM 232. INSULIN COVERAGE GIVEN.
--- NOTE | 2016-11-16 07:15 | NUR ---
CXR DONE AT BEDSIDE. WILL ENDORSE TO AM NURSE TO FOLLOW UP RESULT.
--- NOTE | 2016-11-16 07:24 | NUR ---
ENDORSED PT IN STABLE CONDITION TO AM NURSE.
--- NOTE | 2016-11-16 07:25 | NUR ---
RECEIVED REPORT FROM BENEFITS SPECIALIST NURSE. PT IS AWAKE AND ALERT, FLACC 0. DRESSING TO SACRUM IS DRY AND INTACT. IV IS PATENT AND INTACT. PT IS ON 3 L OF O2 VIA NC, VITALS STABLE. CALL LIGHT WITHIN REACH. WILL CONTINUE TO MONITOR.
[2016-11-16 08:00] VITALS: BP 110/68
--- NOTE | 2016-11-16 08:18 | NUR ---
AWAKE RESPONSIVE PATIENT PRESENTING WITH INCREASED SOB RR 28 DECREASED SATURATION 94% ON SUPPLEMENTAL OXYGEN AT 2LPM VIA NC CXR DATED 11/10/2016 REVIEWED IMPRESSION: BILATERAL PERIHILAR INFILTRATES HHN PRN THERAPY GIVEN AT THIS TIME
[2016-11-16] MEDS: IPRATROPIUM 0.02% 0.5 MG/2.5 ML NEBU INH PRN ×4 (08:22→19:28)
[2016-11-16] MEDS: ALBUTEROL 0.083% 2.5 MG/3 ML NEBU INH PRN ×4 (08:22→19:28)
[2016-11-16] MEDS: POTASSIUM CHLORIDE 20% 40 MEQ/15 ML UDC GT SCH (09:13)
[2016-11-16] MEDS: lamoTRIgine 25 MG TAB PO SCH ×2 (09:13→21:03)
[2016-11-16] MEDS: FAMOTIDINE 20 MG/2 ML VIAL IV SCH (09:13)
[2016-11-16] MEDS: Z-GUARD PASTE TP SCH (09:13)
[2016-11-16] MEDS: SACCHAROMYCES 250 MG CAP PO SCH ×2 (09:13→21:03)
[2016-11-16] MEDS: INSULIN DETEMIR 100 UNITS/ML 10 ML VIAL SUBQ SCH (09:16)
--- NOTE | 2016-11-16 10:00 | NUR ---
CM NOTE PER DEENA GONZALEZ FOR [facility], WILL TAKE MEDI-ISABELLA PATIENTS ONLY IF THEY ARE ORALLY INTUBATED. MANE ALMAGUER MADE AWARE.
--- NOTE | 2016-11-16 10:30 | NUR ---
INFORMED DR. ORLANDO OF [facility] INSURANCE POLICY.
[2016-11-16 12:00] VITALS: BP 130/74
--- NOTE | 2016-11-16 12:07 | NUR ---
PHYSICAL THERAPY COMPLETED SATURATION 91% ON 3 LPM VIA NC
--- NOTE | 2016-11-16 12:09 | NUR ---
AWAKE AND ALERT PATIENT PRESENTING WITH INCREASED SOB RR 28 DECREASED SATURATION AT 91% SUPPLEMENTAL OXYGEN AT 3 LPM VIA NC HHN PRN THERAPY GIVEN AT THIS TIME VIA BLOW BY
[2016-11-16] MEDS: NACL 0.45% 1,000 ML IV SCH (12:15)
--- NOTE | 2016-11-16 13:22 | NUR ---
VANCO ADMINISTERED, TROUGH 11.4. OK TO GIVE PER PHARMACY.
--- NOTE | 2016-11-16 14:24 | NUR ---
11/16/[address] FOLLOW UP COMPLETED PLEASE REFER TO NUTRITION ASSESSMENT UNDER CARE ACTIVITY FOR ESTIMATED NUTRITIONAL NEEDS. RD RECOMMENDATIONS: 1. CONTINUE NUTRITION SUPPORT DIABETISOURCE AT 50 ML/HR WITH 200 ML FREE WATER FLUSH Q6H AND PROSOURCE BID VIA NGTUBE TOLERATED --ADEQUATE TO MEET 100% OF PT ESTIMATED KCAL AND PROTEIN NEEDS. 2. SHOULD PT REQUIRE DETENTION NUTRITION SUPPORT CONSIDER PLACEMENT OF GTUBE 3. RD WILL F/U 2-3 DAYS; HIGH RISK. TRAVIS [address] RD
--- NOTE | 2016-11-16 15:00 | NUR ---
ALL NEEDS MET AT THIS TIME.
[2016-11-16 16:00] VITALS: BP 109/61
[2016-11-16] MEDS: LEVOFLOXACIN 500 MG/D5W PREMIX 100 ML IV SCH (16:37)
--- NOTE | 2016-11-16 17:03 | NUR ---
LINENS CHANGED AND PT REPOSITIONED FOR COMFORT AND PRESSURE RELIEF.
[2016-11-16 19:40] VITALS: BP 107/64
--- NOTE | 2016-11-16 19:40 | NUR ---
RECEIVED PT IN STABLE CONDITION FROM AM NURSE. AWAKE, BUT NON VERBAL. ON BEDREST. WITH O23L/NC. NO DISTRESS NOTED. WITH NGT FEEDING TOLERATING WELL. WITH NO RESIDUAL NOTED. IVF INFUSING WELL ON THE LT FA#24. CLEAR AND PATENT. PT WITH SACRAL PRESSURE ULCER ,DRESSING DRY AND INTACT. BED ON LOW POSITION. SIDE RAILS UP AND PADDED . CALL LIGHT PLACED WITHIN EASY REACH. FREQUENT ROUNDS NEEDED. FOR PT MIGHT PULL OUT NGT AND IV TUBINGS. WILL CONTINUE TO MONITOR.
--- NOTE | 2016-11-16 22:00 | NUR ---
HAS BEEN TURNED TO SIDES. REPOSITIONED FOR COMFORT. NO DISTRESS NOTED.
[2016-11-17] VITALS: BP 111/61
[2016-11-17] MEDS: VANCOMYCIN 750 MG in DEXTROSE 5% 250 ML IV SCH ×2 (00:45→13:29)
--- NOTE | 2016-11-17 01:00 | NUR ---
SLEEPING WELL AT THIS TIME. NO S/S OF ANY ACUTE DISTRESS NOTED.
--- NOTE | 2016-11-17 04:00 | NUR ---
REPOSITIONED FOR COMFORT . NO DISTRESS NOTED.
[2016-11-17 04:10] VITALS: BP 124/70
[2016-11-17] MEDS: MEROPENEM 1,000 MG in NACL 0.9% 100 ML IV SCH ×3 (04:59→22:18)
[2016-11-17] MEDS: BLOOD GLUCOSE MONITORING 1 DEV DEV FS SCH ×4 (06:20→21:00)
[2016-11-17] MEDS: INSULIN LISPRO SLIDING SCALE 100 UNITS/ML VIAL SUBQ PRN ×3 (06:23→22:51)
--- NOTE | 2016-11-17 07:20 | NUR ---
PT HAS DNR PAPER IN CHART. AM NURSE AND LEX RIVERA LOCKSTITCH TUNNEL ELASTIC OPERATOR MADE AWARE TO HAVE IT CLARIFY WITH DR. ORLANDO.
--- NOTE | 2016-11-17 07:23 | NUR ---
ENDORSED PT IN STABLE CONDITION TO AM NURSE FOR CONTINUITY OF CARE.
--- NOTE | 2016-11-17 07:24 | NUR ---
PT RECEIVED ASLEEP BUT EASILY AWAKEN, LYING ON BED, WITH O2 AT 3LPM VIA NC, NO S/S OF DISTRESS AT THIS TIME. WITH NG TUBE AT RIGHT NARES WITH ONGOING FEEDING OF DIABETISOURCE 50ML/HR AND FREE WATER OF 200ML/HR, PT TOLERATING WELL. NGTUBE ASPIRATED AND AUSCULTATED, NO RESIDUAL NOTED. WITH IV ACCESS ON LEFT FOREARM 22G INFUSING FLUIDS WELL. ON TELE MONITOR. WITH SACRAL PRESSURE ULCER WITH DRY DRESSING. WITH ROMERO CATHETER DRAINING YELLOWISH URINE. SAFETY/FALL/SEIZURE,ASPIRATION PRECAUTION ENFORCED. CALL LIGHT WITHIN REACHED, WILL CONTINUE TO MONITOR.
--- NOTE | 2016-11-17 07:31 | NUR ---
PT REPOSITIONED TO SIDE. KEPT CLEAN AND DRY. ALL NEEDS MET AT THIS TIME
[2016-11-17 08:00] VITALS: BP 113/67
[2016-11-17] MEDS: POTASSIUM CHLORIDE 20% 40 MEQ/15 ML UDC GT SCH (08:59)
[2016-11-17] MEDS: FAMOTIDINE 20 MG/2 ML VIAL IV SCH (08:59)
[2016-11-17] MEDS: lamoTRIgine 25 MG TAB PO SCH ×2 (08:59→22:17)
--- NOTE | 2016-11-17 08:59 | NUR ---
NG TUBE ASPIRATED, NO RESIDUAL NOTED. DUE MEDS GIVEN, PT TOLERATED WELL. NO S/S OF RESPIRATORY DISTRESS. CALL LIGHT WITHIN REACH, WILL CONTINUE TO MONITOR.
[2016-11-17] MEDS: SACCHAROMYCES 250 MG CAP PO SCH ×2 (09:00→22:17)
[2016-11-17] MEDS: INSULIN DETEMIR 100 UNITS/ML 10 ML VIAL SUBQ SCH (09:19)
--- NOTE | 2016-11-17 09:27 | NUR ---
PT REPOSITIONED TO SIDE, NO S/S OF DISTRESS. WILL CONTINUE TO MONITOR.
--- NOTE | 2016-11-17 11:08 | NUR ---
DR ORLANDO AT NURSES' STATION
--- NOTE | 2016-11-17 11:18 | NUR ---
PT AWAKE, NO S/S OF DISTRESS. KEPT CLEAN AND DRY. CALL LIGHT WITHIN REACH, WILL CONTINUE TO MONITOR.
--- NOTE | 2016-11-17 11:21 | NUR ---
WOUND CARE FOLLOW UP NOTES: SEEN PATIENT FOR FOLLOW UP RE: SACRALCOCCYX ST II. PLEASE REFER TO WOUND ASSESSMENT FLOWSHEET FOR UPDATED ENTRY. WILL CONTINUE CURRENT PLAN OF CARE. WILL CONTINUE TO MONITOR PATIENT WHILE IN HOUSE. PMD UPDATED OF WOUND ASSESSMENT.
--- NOTE | 2016-11-17 11:35 | NUR ---
REPOSITIONED TO SIDE. ALL NEEDS MET AT THIS TIME. CALL LIGHT WITHIN REACH, WILL CONTINUE TO MONITOR.
[2016-11-17 12:00] VITALS: BP 106/68
[2016-11-17] MEDS: NACL 0.45% 1,000 ML IV SCH (12:20)
--- NOTE | 2016-11-17 13:00 | NUR ---
SACRAL WOUND DRESSING CHANGED. PHOTOS TAKEN AND AFFIXED IN CHART. KEPT PT CLEAN AND DRY. ALL NEEDS ME AT THIS TIME
--- NOTE | 2016-11-17 13:40 | NUR ---
PT AWAKE NO SIGNS OF DISTRESS. REPOSITIONED TO SIDE.
--- NOTE | 2016-11-17 14:46 | NUR ---
PT SLEEPING AT THIS TIME, NO S/S OF RESPIRATORY DISTRESS. WILL CONTINUE TO MONITOR.
--- NOTE | 2016-11-17 15:01 | NUR ---
NOTIFIED DR. JAQUEZ WHO IS COVERING FOR DR. FLANNERY REGARDING PEG TUBE PLACEMENT. PER MD HE WILL SEE THE PT THIS WEEKEND
--- NOTE | 2016-11-17 15:50 | NUR ---
PT ASLEEP BUT EASILY AWAKEN. REPOSITIONED TO SIDE. CALL LIGHT WITHIN REACH, WILL CONTINUE TO MONITOR.
[2016-11-17 16:00] VITALS: BP 97/61
[2016-11-17] MEDS: LEVOFLOXACIN 500 MG/D5W PREMIX 100 ML IV SCH (17:06)
--- NOTE | 2016-11-17 17:32 | NUR ---
PT AWAKE, KEPT CLEAN AND DRY. REPOSITIONED TO SIDE. ALL NEEDS MET AT THIS TIME. WILL CONTINUE TO MONITOR.
--- NOTE | 2016-11-17 19:30 | NUR ---
RECEIVED PT FROM TRISTIN TELLEZ APHASIC NG TUBE ZERO RESIDUAL WELL TOLERATED, ON TEL ST, IV ON LEFT ARM INFUSING WELL REPOSITIONED INITIAL ASSESSMENT DONE
--- NOTE | 2016-11-17 19:55 | NUR ---
NO DISTRESS/SOB/WHEEZING NOTED AT THIS TIME. NO INDICATION FOR HHN PRN TX.
[2016-11-17 20:00] VITALS: BP 115/71
--- NOTE | 2016-11-17 21:30 | NUR ---
BLOOD SUGAR TEST 159 COVERAGE WITH 2 UNILTS REG INSULIN
[2016-11-18] VITALS: BP 114/68
--- NOTE | 2016-11-18 | NUR ---
PT REPOSITIONED ON TELE SR NOT DISTRESS NOTED NG TUBE WELL TOLERATED
[2016-11-18] MEDS: VANCOMYCIN 750 MG in DEXTROSE 5% 250 ML IV SCH ×2 (01:30→14:44)
[2016-11-18 04:00] VITALS: BP 115/70
--- NOTE | 2016-11-18 04:00 | NUR ---
SPONGE BATH GIVEN , LINEN CHANGED ON TELMETRY SR NOT SOB NOTED
[2016-11-18] MEDS: MEROPENEM 1,000 MG in NACL 0.9% 100 ML IV SCH ×3 (05:02→21:07)
[2016-11-18] MEDS: INSULIN LISPRO SLIDING SCALE 100 UNITS/ML VIAL SUBQ PRN ×3 (06:18→16:01)
[2016-11-18] MEDS: BLOOD GLUCOSE MONITORING 1 DEV DEV FS SCH ×4 (06:19→21:20)
--- NOTE | 2016-11-18 06:35 | NUR ---
BLOOD SUGAR TEST 175 COVERAGE WITH 2 UNITS SREG INSULIN PT REPOSITIONED Q2H NOT DISTRESS NOTED
--- NOTE | 2016-11-18 07:00 | NUR ---
RECEIVED PT IN BED, PT AWAKE, OPENS EYES NON VERBAL, PT ON 02 AT 3L VIA NC, NO ACUTE DISTRESS, HEAD OF BED ELEVATED 30 DEGREES. SKIN WARM AND DRY, SACRAL WOUND NOTED, OFF LOAD TO PRESSURE AREA, DRESSING INTACT AND DRY. NGT IN PLACE RIGHT NOSTRIL, GASTRIC RESIDUAL NOTED 10ML, TOLERATING TUBE FEEDING WELL, ABDOMINAL SOUNDS PRESENT ON FOUR QUADRANTS. ROMERO CATHETER IN PLACE, DRAINING WELL 400 ML YELLOW CLEAR IN COLOR. TURNED PT FROM BONY PROMINENCE, NO SIGNS AND SYMPTOMS OF PAIN, FLACC 0. SAFETY PRECAUTION MAINTAINED. CALL LIGHT IN REACH.
--- NOTE | 2016-11-18 07:43 | NUR ---
WAS SEEN BY DR. CAMPBELL, SPOKE WITH GINGER NEGRO TO OBTAIN CONSENT FOR EGD WITH PEG. RISKS AND BENEFITS EXPLAINED. CONSENT OBTAINED VIA TELEPHONE. WITNESSED WITH DR. JAQUEZ. RECEIVED ORDER FOR EGD WITH PEG DHAVAL. HOLD TUBE FEEDING AT MIDNIGHT. NOTED AND CARRIED OUT.
[2016-11-18 09:08] VITALS: BP 101/62
[2016-11-18] MEDS: INSULIN DETEMIR 100 UNITS/ML 10 ML VIAL SUBQ SCH (09:30)
[2016-11-18] MEDS: lamoTRIgine 25 MG TAB PO SCH ×2 (09:40→21:07)
[2016-11-18] MEDS: SACCHAROMYCES 250 MG CAP PO SCH ×2 (09:40→21:07)
[2016-11-18] MEDS: POTASSIUM CHLORIDE 20% 40 MEQ/15 ML UDC GT SCH (09:40)
[2016-11-18] MEDS: FAMOTIDINE 20 MG/2 ML VIAL IV SCH (09:44)
[2016-11-18] MEDS: Z-GUARD PASTE TP SCH (09:44)
[2016-11-18] MEDS: NACL 0.45% 1,000 ML IV SCH (11:50)
[2016-11-18 12:00] VITALS: BP 102/55
--- NOTE | 2016-11-18 13:34 | NUR ---
11/18/16 RD FOLLOW UP COMPLETED PLEASE REFER TO NUTRITION PROGRESS NOTE UNDER CARE ACTIVITY FOR ESTIMATED NUTRITION NEEDS. RD RECOMMENDATIONS: 1. CONTINUE NUTRITION SUPPORT DIABETISOURCE AT 50 ML/HR WITH 200 ML FREE WATER FLUSH Q6H AND PROSOURCE BID VIA NGTUBE TOLERATED PER MD. --ADEQUATE TO MEET 100% OF PT ESTIMATED KCAL AND PROTEIN NEEDS. 2. SHOULD PT REQUIRE CORRECTION NUTRITION SUPPORT CONSIDER PLACEMENT OF GTUBE 3. RD WILL F/U 2-3 DAYS; HIGH RISK. OFELIA CASAS, RD
--- NOTE | 2016-11-18 14:03 | NUR ---
NEW ORDER RECEIVED FROM DR. KELLER. NOTED AND CARRIED OUT.
[2016-11-18 16:00] VITALS: BP 113/68
[2016-11-18] MEDS: FUROSEMIDE 20 MG/2 ML VIAL IVP SCH (16:06)
[2016-11-18] MEDS: LEVOFLOXACIN 500 MG/D5W PREMIX 100 ML IV SCH (16:07)
--- NOTE | 2016-11-18 18:55 | NUR ---
PT IN BED, AWAKE, NO SIGNS AND SYMPTOMS OF ACUTE PAIN OR DISCOMFORT NOTED AT THIS TIME. TO ENDORSE TO DRILLING FIELD PROFESSIONAL ONCOMING NURSE. FOR CONTINUITY OF CARE.
--- NOTE | 2016-11-18 19:07 | NUR ---
RECEIVED PT IN STABLE CONDITION FROM TRIPP CHAVEZ. NO SOB, NO SIGNS OF DISTRESS. PT IS AOX1, OPENS HER EYES TO HER NAME BEING CALLED, DOES NOT FOLLOW COMMANDS, PT IS APHASIC, BEDBOUND WITH SEVERE WEAKNESS TO ALL EXTREMITIES. PT ON 2L O2 NC. HR TACHY, OTHER VS WNL. FLACC 0. PT WITH ROMERO GRAINING TO GRAVITY. PT WITH NGT TO RT VALERY PATENT, FLUSHED, IRRIGATED, AUSCULTATED FOR POSITIVE PLACEMENT, NO RESIDUAL NOTED. PT ON SEIZURE PRECAUTIONS. FALL PRECAUTIONS MAINTAINED. SCDS IN PLACE. PT TO BE NPO AT 2000 TONIGHT FOR EGD AND G-TUBE PLACEMENT WITH MD JAQUEZ TOMORROW. PT WITH DRYNESS TO RT CHEEK, WOUND TO SACRUM, DRESSING DRY AND INTACT. IV TO LT FA 24G PATENT, ASYMPTOMATIC, INTACT, IVF RUNNING TKO. PLAN OF CARE DISCUSSED WITH PT. SAFETY MEASURES IN PLACE. CALL LIGHT WITHIN REACH. WILL CONTINUE TO MONITOR.
[2016-11-18 20:00] VITALS: BP 102/66
--- NOTE | 2016-11-18 21:20 | NUR ---
PT TOLERATED DUE MEDS WELL. BLOOD SUGAR 145, NO COVERAGE NEEDED. NO SOB, NO SIGNS OF DISTRESS. PT ON 2L O2 NC. NGT IN PLACE. TURNED OFF FEEDING FOR PT TO BE NPO FOR PROCEDURE TOMORROW. CLAMPED NGT. IV SITE ASYMPTOMATIC, INTACT, PATENT, IVPB RUNNING. FLACC 0. PLAN OF CARE DISCUSSED WITH PT. SAFETY MEASURES IN PLACE. CALL LIGHT WITHIN REACH. WILL CONTINUE TO MONITOR.
--- NOTE | 2016-11-18 22:42 | NUR ---
PT ASLEEP IN BED. NO SOB, NO SIGNS OF DISTRESS. NGT IN PLACE. PT ON 2L O2 NC. IV SITE ASYMPTOMATIC, INTACT, PATENT, IVF RUNNING TKO. SAFETY MEASURES IN PLACE. CALL LIGHT WITHIN REACH. WILL CONTINUE TO MONITOR.
[2016-11-19] VITALS (10 sets, daily range): BP systolic 101–124; BP diastolic 64–81
--- NOTE | 2016-11-19 00:15 | NUR ---
VS STABLE. PT ON 2L O2 NC. IV SITE ASYMPTOMATIC, INTACT, PATENT, IVF RUNNING. NGT IN PLACE, CLAMPED. SAFETY MEASURES IN PLACE. TOLD PT SHE IS TO HAVE SURGERY THIS AM, PLAN OF CARE DISCUSSED WITH PT. CALL LIGHT WITHIN REACH. WILL CONTINUE TO MONITOR.
[2016-11-19] MEDS: VANCOMYCIN 750 MG in DEXTROSE 5% 250 ML IV SCH ×2 (00:37→13:59)
--- NOTE | 2016-11-19 04:20 | NUR ---
VS STABLE. PT ON 2L O2 NC. IV SITE ASYMPTOMATIC, INTACT, PATENT, IVF RUNNING. NGT IN PLACE, CLAMPED. SAFETY MEASURES IN PLACE. CALL LIGHT WITHIN REACH. WILL CONTINUE TO MONITOR.
[2016-11-19] MEDS: MEROPENEM 1,000 MG in NACL 0.9% 100 ML IV SCH ×3 (04:22→20:10)
[2016-11-19] MEDS: BLOOD GLUCOSE MONITORING 1 DEV DEV FS SCH ×4 (06:33→20:22)
--- NOTE | 2016-11-19 07:00 | NUR ---
RECEIVED PT IN BED, AWAKE, OPENS EYES. BREATHING EVENLY, NO SOB NOTED. VITAL SIGNS TAKEN AND RECORDED. BOWEL SOUNDS AUSCULTATED AND PRESENT ON ALL FOUR QUADRANTS, NGT ON HOLD, ON ROMERO CATHETER DRAINING CLEAR YELLOW URINE. SKIN CARE DONE ON SACRAL PRESSURE ULCER. REPOSITIONED ON SIDE ORDERED. AWAITING OR OPERATING THEATRE TECHNICIAN FOR EGD AND PEG TUBE PLACEMENT.
--- NOTE | 2016-11-19 07:06 | NUR ---
ENDORSED PT IN STABLE CONDITION TO TRIPP CHAVEZ. ALL NEEDS HAVE BEEN MET AT THIS TIME.
--- NOTE | 2016-11-19 08:05 | NUR ---
PT SENT TO OR ON HER BED BY NURSE GONZALEZ FROM OR. PT AWAKE, NO SIGNS OF ACUTE DISTRESS NOTED. PREOP CHECKLIST DONE BY PAINT GRINDER NURSE.
[2016-11-19] MEDS: MIDAZOLAM 2 MG/2 ML VIAL ONE ×5 (08:19→08:54)
[2016-11-19] MEDS: fentaNYL 0.05 MG/ML VIAL ONE ×3 (08:19→08:54)
[2016-11-19] MEDS: SACCHAROMYCES 250 MG CAP PO SCH ×2 (09:00→20:10)
[2016-11-19] MEDS: lamoTRIgine 25 MG TAB PO SCH ×2 (09:00→20:11)
[2016-11-19] MEDS: POTASSIUM CHLORIDE 20% 40 MEQ/15 ML UDC GT SCH (09:00)
[2016-11-19] MEDS: FAMOTIDINE 20 MG/2 ML VIAL IV SCH (09:00)
[2016-11-19] MEDS: INSULIN DETEMIR 100 UNITS/ML 10 ML VIAL SUBQ SCH (09:00)
[2016-11-19] MEDS: FUROSEMIDE 20 MG/2 ML VIAL IVP SCH ×2 (09:00→17:05)
[2016-11-19] MEDS ORDERED: fentaNYL 0.05 MG/ML VIAL IVP ONE (09:05)
[2016-11-19] MEDS ORDERED: MIDAZOLAM 2 MG/2 ML VIAL IVP ONE (09:05)
--- NOTE | 2016-11-19 09:25 | NUR ---
PT BACK FROM OR PER NURSE EVE LORENZANA AWAKE ,RESPONSIVE. HOOKED TO O2 AT 2LPM VIA NC. PEG TUBE IN PLACE. NO RESIDUAL NOTED AT THIS TIME. VITAL SIGNS CHECKED Q15 MINS. NO ACUTE DISTRESS NOTED. WILL RESUME GTUBE FEEDING PER MD ORDER.
--- NOTE | 2016-11-19 09:25 | NUR ---
ADDITIONAL NOTE: NO MORE NGT AFTER PT RECEIVED BACK FROM OR
--- NOTE | 2016-11-19 10:40 | NUR ---
PEG TUBE IN PLACE. CHECKED PATENCY THROUGH AUSCULTATION WITH POSITIVE GURGLING SOUND AND NO GASTRIC RESIDUAL NOTED. STARTED PEG TUBE FEEDING PER MD ORDER. NO SIGNS AND SYMPTOMS OF ACUTE DISTRESS, NO SOB NOTED.
--- NOTE | 2016-11-19 11:02 | NUR ---
WAS SEEN BY Corbin CRUMP. RECEIVED NEW LAB AND IMAGING ORDERS FOR DHAVAL. NOTED AND CARRIED OUT.
[2016-11-19] MEDS: INSULIN LISPRO SLIDING SCALE 100 UNITS/ML VIAL SUBQ PRN ×2 (11:37→21:14)
[2016-11-19] MEDS: NACL 0.45% 1,000 ML IV SCH (11:50)
--- NOTE | 2016-11-19 15:10 | NUR ---
SPOKE WITH DR. ORLANDO, RECEIVED NEW MED ORDER FOR MORPHINE 2MG IVP Q4H PRN FOR SEVERE PAIN. NOTED AND CARRIED OUT.
[2016-11-19] MEDS: MORPHINE SULFATE 2 MG/ML SYR IVP PRN (15:35)
[2016-11-19] MEDS: LEVOFLOXACIN 500 MG/D5W PREMIX 100 ML IV SCH (17:05)
--- NOTE | 2016-11-19 18:02 | NUR ---
PT NOTED WITH EPISODE VOMITING X1. NOTED YELLOWISH COLORED EMESIS, NO RESIDUAL NOTED. CALLED Ingrid CRUMP MADE AWARE. MD VERBALIZED CONTINUE TO MONITOR AT THIS TIME.
--- NOTE | 2016-11-19 19:07 | NUR ---
PT ALERT AND RESPONSIVE, NO SIGNS OF ACUTE DISTRESS. ENDORSED TO ONCOMING ELECTRONICS UTILITY WORKER NURSE FOR CONTINUITY OF CARE.
--- NOTE | 2016-11-19 19:08 | NUR ---
RECEIVED PT IN STABLE CONDITION FROM TRIPP CHAVEZ. NO SOB, NO SIGNS OF DISTRESS. PT IS AOX1, OPENS HER EYES TO HER NAME BEING CALLED, DOES NOT FOLLOW COMMANDS, PT IS APHASIC, BEDBOUND WITH SEVERE WEAKNESS TO ALL EXTREMITIES. PT ON 2L O2 NC. HR TACHY, OTHER VS WNL. FLACC 0. PT WITH ROMERO GRAINING TO GRAVITY. PT WITH G-TUBE PLACED TODAY TO LT UPPER QUADRANT. G-TUBE PATENT, FLUSHED, IRRIGATED, AUSCULTATED FOR POSITIVE PLACEMENT, NO RESIDUAL NOTED. PT ON SEIZURE PRECAUTIONS. FALL PRECAUTIONS MAINTAINED. SCDS IN PLACE. PT WITH DRYNESS TO RT CHEEK, WOUND TO SACRUM, DRESSING DRY AND INTACT. IV TO LT FA 24G PATENT, ASYMPTOMATIC, INTACT, IVF RUNNING TKO. IV TO LT [id number] PATENT, ASYMPTOMATIC, INTACT, SALINE LOCKED. PLAN OF CARE DISCUSSED WITH PT. SAFETY MEASURES IN PLACE. CALL LIGHT WITHIN REACH. WILL CONTINUE TO MONITOR.
--- NOTE | 2016-11-19 20:20 | NUR ---
IV TO LT [id number] FOUND PULLED OUT WITH CANNULA INTACT, NO BLEEDING NOTED. SKIN INTACT. CLEANED AND DRESSED SITE.
--- NOTE | 2016-11-19 20:22 | NUR ---
PT TOLERATED DUE MEDS WELL BY G-TUBE AND IV. BLOOD SUGAR 183, WILL PROVIDE COVERAGE. G-TUBE FEEDING RUNNING. IV SITE ASYMPTOMATIC, INTACT, PATENT, IVPB RUNNING. FLACC 0. PLAN OF CARE DISCUSSED WITH PT. SAFETY MEASURES IN PLACE. CALL LIGHT WITHIN REACH. WILL CONTINUE TO MONITOR.
--- NOTE | 2016-11-19 22:33 | NUR ---
PT ASLEEP IN BED. NO SOB, NO SIGNS OF DISTRESS. PT ON 2L O2 NC. IV SITE ASYMPTOMATIC, INTACT, PATENT, IVF RUNNING. SAFETY MEASURES IN PLACE. CALL LIGHT WITHIN REACH. WILL CONTINUE TO MONITOR.
[2016-11-20] VITALS: BP 120/84
[2016-11-20] MEDS: VANCOMYCIN 750 MG in DEXTROSE 5% 250 ML IV SCH ×2 (00:09→14:01)
[2016-11-20] MEDS: MORPHINE SULFATE 2 MG/ML SYR IVP PRN (00:14)
--- NOTE | 2016-11-20 00:14 | NUR ---
VS STABLE. PT ON 2L O2 NC. IV TO LT FA24G REDDENED, PUFFY, INFILTRATED. DC IV AND STARTED NEW IV TO RT WRIST 24G PATENT, ASYMPTOMATIC, INTACT, IVPB RUNNING. FLACC 7, MEDICATED PT FOR PAIN PER MD ORDER. NO SOB, NO SIGNS OF DISTRESS. PLAN OF CARE DISCUSSED WITH PT. SAFETY MEASURES IN PLACE. CALL LIGHT WITHIN REACH. WILL CONTINUE TO MONITOR.
--- NOTE | 2016-11-20 00:15 | NUR ---
30ML G-TUBE RESIDUAL NOTED.
[2016-11-20 04:00] VITALS: BP 104/64
--- NOTE | 2016-11-20 04:00 | NUR ---
VS STABLE. PT ON 2L O2 NC. IV TO RT WRIST 24G PATENT, ASYMPTOMATIC, INTACT, IVF RUNNING. FLACC 0. 60 ML G-TUBE RESIDUAL NOTED. NO SOB, NO SIGNS OF DISTRESS. PLAN OF CARE DISCUSSED WITH PT. SAFETY MEASURES IN PLACE. CALL LIGHT WITHIN REACH. WILL CONTINUE TO MONITOR.
[2016-11-20] MEDS: MEROPENEM 1,000 MG in NACL 0.9% 100 ML IV SCH ×3 (04:33→20:25)
[2016-11-20] MEDS: INSULIN LISPRO SLIDING SCALE 100 UNITS/ML VIAL SUBQ PRN (06:18)
[2016-11-20] MEDS: BLOOD GLUCOSE MONITORING 1 DEV DEV FS SCH ×4 (06:18→20:24)
--- NOTE | 2016-11-20 07:25 | NUR ---
ENDORSED PT IN STABLE CONDITION TO JADON ISRAEL RN. ALL NEEDS HAVE BEEN MET AT THIS TIME.
--- NOTE | 2016-11-20 07:26 | NUR ---
RECEIVED REPORT FROM [employer] AIDE NURSE. PT IS AWAKE AND ALERT, FLACC 0. IV IS PATENT AND INTACT. DRESSING TO SACRUM IS DRY AND INTACT. SCAB TO RIGHT CHEEK NOTED. ROMERO CATHETER IS PATENT AND FLOWING VIA GRAVITY. PT IS ON 3L OF O2 VIA NC, VITALS STABLE. CALL LIGHT WITHIN REACH. WILL CONTINUE TO MONITOR.
[2016-11-20] MEDS ORDERED: VANCOMYCIN PER PHARMACY MC PRN (07:55)
[2016-11-20] MEDS: POTASSIUM CHLORIDE 20% 40 MEQ/15 ML UDC GT SCH (08:49)
[2016-11-20] MEDS: FAMOTIDINE 20 MG/2 ML VIAL IV SCH (08:49)
[2016-11-20] MEDS: FUROSEMIDE 20 MG/2 ML VIAL IVP SCH ×2 (08:49→16:38)
[2016-11-20] MEDS: lamoTRIgine 25 MG TAB PO SCH ×2 (08:49→20:24)
[2016-11-20] MEDS: SACCHAROMYCES 250 MG CAP PO SCH ×2 (08:49→20:24)
[2016-11-20] MEDS: INSULIN DETEMIR 100 UNITS/ML 10 ML VIAL SUBQ SCH (08:53)
[2016-11-20] MEDS: Z-GUARD PASTE TP SCH (08:54)
--- NOTE | 2016-11-20 09:03 | NUR ---
PT MICAH MEDS WELL.
[2016-11-20 09:13] VITALS: BP 106/64
--- NOTE | 2016-11-20 10:58 | NUR ---
CHANGED LINEN, PT TURNED AND REPOSITIONED.
[2016-11-20] MEDS: NACL 0.45% 1,000 ML IV SCH (11:50)
[2016-11-20 12:00] VITALS: BP 108/71
--- NOTE | 2016-11-20 12:58 | NUR ---
ALL NEEDS MET AT THIS TIME.
[2016-11-20 16:00] VITALS: BP 95/61
--- NOTE | 2016-11-20 16:00 | NUR ---
VITALS REMAIN STABLE. WILL CONTINUE TO MONITOR.
[2016-11-20] MEDS: LEVOFLOXACIN 500 MG/D5W PREMIX 100 ML IV SCH (16:41)
--- NOTE | 2016-11-20 18:00 | NUR ---
PT CHANGED AND REPOSITION FOR PRESSURE RELIEF AND COMFORT.
--- NOTE | 2016-11-20 19:10 | NUR ---
RECEIVED PT FROM MANE ALMAGUER FOR PT CONTINUITY OF CARE. PT NOTED STABLE, NO S/S OF ACUTE DISTRESS. HAS ON NASAL CANNULA.
--- NOTE | 2016-11-20 19:16 | NUR ---
ENDORSED TO OPERATIONS SUPPORT COORDINATOR NURSE FOR CONTINUITY OF CARE IN STABLE CONDITION.
--- NOTE | 2016-11-20 19:36 | NUR ---
RT AT BEDSIDE GIVING BREATHING TX. TOLERATING WELL.
--- NOTE | 2016-11-20 19:36 | NUR ---
NO DISTRESS/SOB/WHEEZING NOTED AT THIS TIME. NO INDICATION FOR HHN PRN TX.
--- NOTE | 2016-11-20 19:41 | NUR ---
SHIFT ASSESSMENT DONE. PT IS A/O X1, NOTED TO MUMBLE AND BE APHASIC. PT HAS HX CVA AND DEMENTIA. DISCUSSED TO PT PLAN OF CARE, REINFORCEMENT TEACHING NEEDED. VITAL SIGNS TAKEN AND ARE NOTED STABLE. PT IS AFEBRILE WITH OXYGEN SATURATION AT 94% ON 3L VIA NASAL CANNULA. NO PAIN NOTED, PT IS RELAXED. NO S/S OF ACUTE RESPIRATORY DISTRESS OR PAIN NOTED. LUNG SOUNDS ARE CLEAR AND BOWEL SOUNDS ARE ACTIVE. NOTED SACRAL DRESSING, DRY AND INTACT. IV ACCESS TO RT WRIST #24G, PATENT AND INTACT. SCD'S ARE IN PLACE. ROMERO CATHETER IN PALACE, DRAINING TO GRAVITY OF YELLOW URINE. PT ON WOUND BED. G-TUBE IN PLACE, RUNNING DIABETISOURCE AT 50ML/HR, G-TUBE IS PATENT, NOTED 25ML OF RESIDUALS, HEAD OF BED IS ELEVATED 30 DEGREES. CALL LIGHT WITHIN REACH. WILL CONTINUE TO MONITOR PT. SAFETY PRECAUTIONS IMPLEMENTED.
--- NOTE | 2016-11-20 19:42 | NUR ---
SEIZURE PRECAUTIONS ARE IMPLEMENTED.
[2016-11-20 20:00] VITALS: BP 108/63
--- NOTE | 2016-11-20 20:24 | NUR ---
PM MEDICATION TOLERATED WELL THROUGH G-TUBE. NO DISTRESS NOTED. SEIZURE PRECAUTIONS STILL IMPLEMENTED. BLOOD GLUCOSE IS 112, NO INSULIN NEEDED. CALL LIGHT WITHIN REACH. WILL CONTINUE TO MONITOR.
[2016-11-21] VITALS: BP 97/63
--- NOTE | 2016-11-21 00:26 | NUR ---
PT VITAL SIGNS REMAIN STABLE. NO DISTRESS NOTED. WILL CONTINUE TO MONITOR.
[2016-11-21] MEDS: VANCOMYCIN 750 MG in DEXTROSE 5% 250 ML IV SCH ×2 (00:42→14:08)
--- NOTE | 2016-11-21 02:13 | NUR ---
PT SLEEPING WELL, PROVIDED PT WITH TURNING. NO ACUTE DISTRESS. CALL LIGHT WITHIN REACH.
[2016-11-21 04:00] VITALS: BP 110/72
--- NOTE | 2016-11-21 04:00 | NUR ---
VITALS SIGNS REMAIN STABLE, NO S/S OF ACUTE DISTRESS. CALL LIGHT WITHIN REACH.
[2016-11-21] MEDS: MEROPENEM 1,000 MG in NACL 0.9% 100 ML IV SCH ×2 (04:59→12:57)
[2016-11-21] MEDS: BLOOD GLUCOSE MONITORING 1 DEV DEV FS SCH ×3 (06:05→16:58)
--- NOTE | 2016-11-21 06:05 | NUR ---
BLOOD GLUCOSE IS 138, NO INSULIN NEEDED. PT STABLE.
--- NOTE | 2016-11-21 07:28 | NUR ---
ENDORSED PT TO PADMA ALMAGUER FOR CONTINUITY OF CARE AT BEDSIDE. NO ACUTE S/S OF DISTRESS NOTED.
--- NOTE | 2016-11-21 07:45 | NUR ---
RECEIVED REPORT FROM ENVIRONMENTAL AUDITOR NURSE. PT IS AWAKE,CAN NOT MAKE NEEDS KNOWN. NON VERBAL. FLACC 0. IV TO LEFT HAND IS PATENT AND INTACT. G TUBE IN PLACE WITH 50 ML RESIDUAL, RETURNED IT. DRESSING TO SACRUM IS DRY AND INTACT. ROMERO CATHETER IS PATENT AND FLOWING VIA GRAVITY. PT IS ON 3L OF O2 VIA NC, VITALS CHECKED. SINUS TACHYCARDIA, NO FEVER. CALL LIGHT WITHIN REACH. WILL CONTINUE TO MONITOR.
[2016-11-21 08:00] VITALS: BP 108/69
[2016-11-21] MEDS: SACCHAROMYCES 250 MG CAP PO SCH (08:57)
[2016-11-21] MEDS: POTASSIUM CHLORIDE 20% 40 MEQ/15 ML UDC GT SCH (08:57)
[2016-11-21] MEDS: FUROSEMIDE 20 MG/2 ML VIAL IVP SCH (08:58)
[2016-11-21] MEDS: lamoTRIgine 25 MG TAB PO SCH (08:58)
--- NOTE | 2016-11-21 09:00 | NUR ---
DUE MEDS GIVEN, TOLERATED WELL.
[2016-11-21] MEDS: FAMOTIDINE 20 MG/2 ML VIAL IV SCH (09:55)
[2016-11-21] MEDS: INSULIN DETEMIR 100 UNITS/ML 10 ML VIAL SUBQ SCH (10:03)
--- NOTE | 2016-11-21 11:05 | NUR ---
PT RESTING IN BED, DOES NOT FOLLOW COMMANDS. NO S/S OF RESPIRATORY DISTRESS NOTED. WILL CONTINUE TO MONITOR.
[2016-11-21] MEDS: INSULIN LISPRO SLIDING SCALE 100 UNITS/ML VIAL SUBQ PRN (11:43)
[2016-11-21] MEDS: NACL 0.45% 1,000 ML IV SCH (11:50)
[2016-11-21 12:00] VITALS: BP 110/70
--- NOTE | 2016-11-21 13:00 | NUR ---
PT RESTING IN BED, NO S/S OF RESPIRATORY DISTRESS NOTED AT THIS TIME.
--- NOTE | 2016-11-21 13:41 | NUR ---
11/21/16 RD FOLLOW UP COMPLETED PLEASE REFER TO NUTRITION PROGRESS NOTE UNDER CARE ACTIVITY FOR ESTIMATED NUTRITION NEEDS. RD RECOMMENDATIONS: 1. DIABETISOURCE AT 50 ML/HR WITH 200 ML FREE WATER FLUSH Q6H VIA G TUBE. --NOTE PT CURRENTLY MEETING 98% OF PT ESTIMATED KCAL NEEDS AND 97% OF PT ESTIMATED PROTEIN NEEDS. --ADEQUATE --NOTE RN REPORT PT WITH FAIR TOLERANCE OF TUBE FEEDING. 2. RD WILL F/U 2-3; HIGH RISK. OFELIA CASAS, RD
--- NOTE | 2016-11-21 13:50 | NUR ---
SS NOTE: PER GERMAIN FROM [facility] ([phone]), PT CAN RETURN TO ROOM 14B ANYTIME. HADLEY BARRERA.
--- NOTE | 2016-11-21 14:00 | NUR ---
DR. MILLER IN TO SEE PT. PER DR. MILLER IT IS OK TO TRANSFER PT.
--- NOTE | 2016-11-21 14:14 | NUR ---
CALLED DR. ORLANDO. LAB REPORT GIVEN. PER , IT IS OK TO TRANSFER.
--- NOTE | 2016-11-21 15:14 | NUR ---
SET UP BLS TRANSPORT WITH [facility] FOR 4P.Red LOVELL RN CHARGE EDGAR BARRERA.
--- NOTE | 2016-11-21 15:38 | NUR ---
REPORT GIVEN TO CLAYTON ALMAGUER.
[2016-11-21 16:00] VITALS: BP 105/70
--- NOTE | 2016-11-21 16:30 | NUR ---
EMS TEAM PRESENT IN UNIT AT 1610. REPORT GIVEN. DISCONTINUED G-TUBE, FLUSHED G-TUBE. IV SALINE LOCKED. PERSONAL BELONGINGS WITH PT. VITALS CHECKED IN STABLE. PT'S SON MARKY AWARE OF TRANSFERRING. PT LEFT UNIT WITH EMS TEAM.
[2016-11-22] MEDS ORDERED: FUROSEMIDE 20 MG TAB GT SCH (09:00)
== END 2016-11-21 16:30 | DRG 720 ==
LOC: MED 10:49 → MTU 13:16 → MIC 15:40 → MTU 11-14 16:42
PROVIDERS: ADMIT Family Medicine; ATTEND Family Medicine
PROC: 5A09457 Assistance with Respiratory Ventilation, 24-96 Consecutive Hours, Continuous Positive Airway Pressure (ICD-10-PCS; 2016-11-09)
PROC: 30233N1 Transfusion of Nonautologous Red Blood Cells into Peripheral Vein, Percutaneous Approach (ICD-10-PCS; principal; 2016-11-12)
PROC: 0DH64UZ Insertion of Feeding Device into Stomach, Percutaneous Endoscopic Approach (ICD-10-PCS; 2016-11-19)
PROC: 3E0G76Z Introduction of Nutritional Substance into Upper GI, Via Natural or Artificial Opening (ICD-10-PCS; 2016-11-19)
DX: A41.9 Sepsis, unspecified organism (principal); J96.21 Acute and chronic respiratory failure with hypoxia; J69.0 Pneumonitis due to inhalation of food and vomit; G93.41 Metabolic encephalopathy; L89.152 Pressure ulcer of sacral region, stage 2; E44.0 Moderate protein-calorie malnutrition; E13.10 Other specified diabetes mellitus with ketoacidosis without coma; F01.50 Vascular dementia, unspecified severity, without behavioral disturbance, psychotic disturbance, mood disturbance, and anxiety; E87.1 Hypo-osmolality and hyponatremia; D64.9 Anemia, unspecified; K21.9 Gastro-esophageal reflux disease without esophagitis; R53.81 Other malaise; G40.909 Epilepsy, unspecified, not intractable, without status epilepticus; E87.6 Hypokalemia; J44.0 Chronic obstructive pulmonary disease with (acute) lower respiratory infection; M81.0 Age-related osteoporosis without current pathological fracture; E78.5 Hyperlipidemia, unspecified; I50.9 Heart failure, unspecified; R13.10 Dysphagia, unspecified; I11.0 Hypertensive heart disease with heart failure; Z68.1 Body mass index [BMI] 19.9 or less, adult; Z99.81 Dependence on supplemental oxygen; Z79.899 Other long term (current) drug therapy; Z79.82 Long term (current) use of aspirin; Z28.21 Immunization not carried out because of patient refusal; Z86.73 Personal history of transient ischemic attack (TIA), and cerebral infarction without residual deficits; Z87.81 Personal history of (healed) traumatic fracture

== ENCOUNTER 2017-04-13 11:28 | Inpatient (IN) | payer MEDICAID, MEDICARE ==
[~2017-04-13] VITALS: Ht 167.6 cm; Wt 71.2 kg
[~2017-04-13 11:28] MED LIST changes: +ACET-2619 PO; +ALEN70TA PO; +AMLO5TAB PO; +AMOX-999 PO; -APRESOLINE25 MG PO; -ARICEPT10 MG PO; +ASPI81CT89 PO; -ASPIRIN81 M1 PO; -ASPIRIN81 M3 PO; -ATROVENT H0.017 MG/A IH; -ATROVENT HFA12.5 GM INH; -AUGMENTIN 500 M1 TAB PO; -BACTRIM DS 800/1 TAB PO; -CATAPRES0.1 M1 PO; -CATAPRES0.1 MG PO; -CEROVITE SENIOR PO; -DIFLUCAN100 MG PO; -DIVALPROEX SOD125 M1 PO; +DONE10TA3 PO; -ESCITALOPRAM5 MG PO; +FLOV250 INH; -FLOVENT HF220 MCG/AC INH; -FOSAMAX70 MG PO; -GLUCOPHAGE500 MG PO; -IMDUR30 MG PO; +LABE100T20 PO; -LABETALOL HCL100 M1 PO; +LAM25 PO; -LAMICTAL25 MG PO; -LASIX40 MG PO; -LEVAQUIN500 MG PO; -LEXAPRO10 MG PO; -LEXAPRO5 MG PO; +METF500T PO; -METOPROLOL100 M1 PO; +MONT10TA35 PO; -NAMENDA10 MG PO; -NIZORAL 2%15 GM TP; -NORCO 10/325 MG1 TAB PO; -NORVASC5 M1 PO; -NORVASC5 MG PO; -POTASSIUM CHLO10 ME2 PO; +PRED20TA5 PO; -PREDNISONE20 MG PO; -PRILOSEC40 MG PO; -PROTONIX40 M1 PO; -RISPERIDONE0.25 M1 PO; -SINGULAIR10 MG PO; -TRANDATE100 M1 PO; -TYLENOL325 M1 PO; -TYLENOL325 M2 PO; -VENTOLIN H0.09 MG/Ac IH; -VITAMIN D31000 I1 PO; -ZESTRIL20 MG PO; -ZOFRAN4 M2 PO
[2017-04-13 11:33] VITALS: BP 105/78
[2017-04-13] MEDS ORDERED: AZITHROMYCIN 500 MG in DEXTROSE 5% 250 ML IV ONE (11:40)
[2017-04-13] MEDS ORDERED: cefTRIAXone 1,000 MG in DEXT 5% MINI-BAG PLUS 50 ML IV ONE (11:40)
[2017-04-13] MEDS ORDERED: HYDR-2912 GT (12:05)
[2017-04-13] MEDS ORDERED: FERROUS SULFATE GT (12:05)
[2017-04-13] MEDS ORDERED: MULT-153 GT (12:23)
[2017-04-13] MEDS ORDERED: BACTO TP (12:25)
[2017-04-13] MEDS ORDERED: SULF-59 GT/PO (12:27)
[2017-04-13 12:38] LABS: BASOPHILS # (AUTO) 0.5 K/uL (0.00-0.22); BASOPHILS % (AUTO) 4.4 % (0.0-2.0); EOSINOPHILS # (AUTO) 0.4 K/uL (0-0.4); EOSINOPHILS % (AUTO) 3.6 % (0.0-4.0); HEMATOCRIT 41.4 % (36-48); HEMOGLOBIN 12.8 g/dL (12.0-16.0); LYMPHOCYTES # (AUTO) 1.1 K/uL (2.5-16.5); LYMPHOCYTES % (AUTO) 9.2 % (20.5-51.1); MEAN CORPUSCULAR HEMOGLOBIN 25 pg (27-31); MEAN CORPUSCULAR HGB CONC 31 g/dL (33-37); MEAN CORPUSCULAR VOLUME 80 fL (80-94); MONOCYTES # (AUTO) 0.8 K/uL (0.8-1.0); MONOCYTES % (AUTO) 6.2 % (1.7-9.3); NEUTROPHILS # (AUTO) 9.5 K/uL (1.8-7.7); NEUTROPHILS % (AUTO) 76.6 % (42.2-75.2); PLATELET COUNT (AUTO) 434 K/uL (140-450); RED BLOOD CELL COUNT(AUTO) 5.21 MIL/uL (4.20-5.40); RED CELL DISTRIBUTION WIDTH 18.5 % (11.6-13.7); WHITE BLOOD COUNT (AUTO) 12.3 K/uL (4.8-10.8)
[2017-04-13] MEDS ORDERED: cefTRIAXone 1,000 MG VIAL ONE (12:38)
[2017-04-13] MEDS ORDERED: AZITHROMYCIN 500 MG INJ VIAL IV ONE (12:39)
[2017-04-13 12:55] LABS: ALBUMIN 3.4 g/dL (3.4-5.0); ANION GAP 11.6 (8-16); CALCIUM 9.8 mg/dL (8.5-10.1); CARBON DIOXIDE 28.8 mmol/L (21-32); CREATININE 0.7 mg/dL (0.6-1.3); POTASSIUM 4.4 mmol/L (3.5-5.1); TOTAL BILIRUBIN 0.4 mg/dL (0.0-1.0); TOTAL PROTEIN, SERUM 8.2 g/dL (6.4-8.2)
[2017-04-13 13:02] LABS: LACTIC ACID 1.6 mmol/L (0.4-2.0)
[2017-04-13 13:14] LABS: PROTHROMBIN TIME 10.4 secs (10.8-13.4)
[2017-04-13 13:20] LABS: APPEARANCE,URINE HAZY (CLEAR); BILIRUBIN,URINE NEGATIVE (NEGATIVE); BLOOD, URINE NEGATIVE (NEGATIVE); COLOR,URINE YELLOW (YELLOW); LEUKOCYTE ESTERASE ,URINE 1+ (NEGATIVE); NITRITE, URINE NEGATIVE (NEGATIVE); PROTEIN,URINE 1+ (NEGATIVE); UGLUCOSE NEGATIVE (NEGATIVE)
[2017-04-13 13:30] LABS: RBC,URINE 0-5 (RARE) /HPF (0-5)
[2017-04-13 13:31] LABS: BACTERIA,URINE 1+ /HPF (None Seen); MUCUS,URINE 1+ /LPF (None Seen)
[2017-04-13] MEDS ORDERED: NACL 0.9% 1,000 ML IV SCH (13:55)
[2017-04-13] MEDS ORDERED: HYDROcodone/APAP 7.5/325 MG 1 TAB PO PRN (13:55)
[2017-04-13] MEDS ORDERED: ACETAMINOPHEN 325 MG TAB PO PRN ×2 (13:55→15:15)
[2017-04-13] MEDS ORDERED: ONDANSETRON 4 MG/2 ML VIAL IVP PRN (13:55)
[2017-04-13] MEDS ORDERED: DEXTROSE 50% 50 ML SYR IVP PRN (14:20)
[2017-04-13] MEDS ORDERED: MECLIZINE 25 MG TAB PO PRN (14:40)
[2017-04-13 14:47] LABS: AMPHETAMINE, URINE NEG. ng/ml (NEG <=1000); BARBITURATE, URINE NEG. ng/ml (NEG <=200); BENZODIAZEPINE, URINE NEG. ng/mL (NEG <=200); CANNABINOID, URINE NEG. ng/mL (NEG <=50); COCAINE, URINE NEG. ng/mL (NEG <=300); OPIATE, URINE NEG. ng/mL (NEG <=2000); PHENCYCLIDINE SCREEN,URINE NEG. ng/mL (NEG <=25)
[2017-04-13 14:56] LABS: CHOL/HDL RATIO 2.6 (1-4.5); FREE T4 (FREE THYROXINE) 1.16 ng/dL (0.76-1.46); MAGNESIUM 2.1 mg/dL (1.8-2.4); PHOSPHORUS 3.9 mg/dL (2.5-4.9); THYROID STIMULATING HORMONE 0.77 uIU/mL (0.34-3.74)
[2017-04-13 15:00] VITALS: BP 114/72
[2017-04-13] MEDS ORDERED: hydrOXYzine HCL 25 MG TAB GT SCH (15:15)
[2017-04-13 16:00] VITALS: BP 132/72
[2017-04-13] MEDS: BLOOD GLUCOSE MONITORING 1 DEV DEV FS SCH ×2 (16:52→21:00)
[2017-04-13] MEDS ORDERED: hydrOXYzine HCL 25 MG TAB GT PRN (16:55)
[2017-04-13] MEDS ORDERED: LABETALOL 100 MG TAB PO SCH (17:00)
[2017-04-13] MEDS: LABETALOL 100 MG TAB PO SCH ×2 (17:00→21:00)
[2017-04-13] MEDS: DEXT 5% /NACL 0.9% 1,000 ML IV SCH (18:56)
[2017-04-13 20:00] VITALS: BP 105/67
[2017-04-13] MEDS: lamoTRIgine 25 MG TAB PO SCH (21:00)
[2017-04-13] MEDS ORDERED: amLODIPine 5 MG TAB PO SCH (21:00)
[2017-04-13] MEDS: DOCUSATE SODIUM 100 MG GELCAP PO SCH (21:00)
[2017-04-14] VITALS: BP 118/73
[2017-04-14] MEDS: DEXT 5% /NACL 0.9% 1,000 ML IV SCH ×3 (03:41→21:53)
[2017-04-14 04:03] VITALS: BP 118/69
[2017-04-14] MEDS: BLOOD GLUCOSE MONITORING 1 DEV DEV FS SCH ×4 (06:24→21:00)
[2017-04-14 07:26] LABS: BASOPHILS # (AUTO) 0.2 K/uL (0.00-0.22); BASOPHILS % (AUTO) 1.8 % (0.0-2.0); EOSINOPHILS # (AUTO) 0.5 K/uL (0-0.4); HEMATOCRIT 38.2 % (36-48); HEMOGLOBIN 12.2 g/dL (12.0-16.0); LYMPHOCYTES # (AUTO) 1.7 K/uL (2.5-16.5); LYMPHOCYTES % (AUTO) 17.4 % (20.5-51.1); MEAN CORPUSCULAR HEMOGLOBIN 26 pg (27-31); MEAN CORPUSCULAR HGB CONC 32 g/dL (33-37); MEAN CORPUSCULAR VOLUME 81 fL (80-94); MONOCYTES # (AUTO) 1.2 K/uL (0.8-1.0); MONOCYTES % (AUTO) 12.2 % (1.7-9.3); NEUTROPHILS # (AUTO) 6.4 K/uL (1.8-7.7); NEUTROPHILS % (AUTO) 63.6 % (42.2-75.2); PLATELET COUNT (AUTO) 355 K/uL (140-450); RED CELL DISTRIBUTION WIDTH 18.3 % (11.6-13.7)
[2017-04-14 07:33] LABS: CALCIUM 9.2 mg/dL (8.5-10.1); CARBON DIOXIDE 27.4 mmol/L (21-32); CREATININE 0.6 mg/dL (0.6-1.3); POTASSIUM 3.4 mmol/L (3.5-5.1)
[2017-04-14 07:35] VITALS: BP 107/69
[2017-04-14 07:46] LABS: PHOSPHORUS 3.6 mg/dL (2.5-4.9)
[2017-04-14] MEDS ORDERED: PANTOPRAZOLE 40 MG INJ VIAL IVP SCH (09:00)
[2017-04-14] MEDS: DOCUSATE SODIUM 100 MG GELCAP PO SCH ×2 (09:00→21:00)
[2017-04-14] MEDS: LABETALOL 100 MG TAB PO SCH ×4 (09:00→21:00)
[2017-04-14] MEDS: metFORMIN 500 MG TAB PO SCH (09:00)
[2017-04-14] MEDS: ASPIRIN 81 MG TAB.CHEW GT SCH (09:00)
[2017-04-14] MEDS: MONTELUKAST SODIUM 10 MG TAB PO SCH (09:00)
[2017-04-14] MEDS: MULTIVITAMIN 1 TAB PO SCH (09:00)
[2017-04-14] MEDS: lamoTRIgine 25 MG TAB PO SCH ×2 (09:00→21:00)
[2017-04-14] MEDS: amLODIPine 5 MG TAB PO SCH (09:00)
[2017-04-14] MEDS: LACTOBACILLUS RHAMNOSUS GG 1 EACH CAP PO SCH (09:00)
[2017-04-14] MEDS: DONEPEZIL 10 MG TAB GT SCH (09:00)
[2017-04-14] MEDS: predniSONE 10 MG TAB PO SCH (09:00)
[2017-04-14] MEDS ORDERED: POTASSIUM CHLORIDE 40 MEQ, LIDOCAINE 1% 25 MG in NACL 0.9% 250 ML IV SCH (10:30)
[2017-04-14 12:00] VITALS: BP 121/72
[2017-04-14] MEDS: diphenhydrAMINE 2% 30 GM TUBE TP PRN ×2 (15:27→22:40)
[2017-04-14 16:00] VITALS: BP 114/72
[2017-04-14 20:00] VITALS: BP 109/81
[2017-04-15 00:15] VITALS: BP 115/73
[2017-04-15] MEDS: diphenhydrAMINE 2% 30 GM TUBE TP PRN (05:11)
[2017-04-15] MEDS: BLOOD GLUCOSE MONITORING 1 DEV DEV FS SCH ×4 (06:09→21:00)
[2017-04-15 06:58] LABS: BASOPHILS # (AUTO) 0.1 K/uL (0.00-0.22); BASOPHILS % (AUTO) 1.3 % (0.0-2.0); EOSINOPHILS # (AUTO) 0.5 K/uL (0-0.4); EOSINOPHILS % (AUTO) 6.3 % (0.0-4.0); HEMATOCRIT 42.3 % (36-48); HEMOGLOBIN 13.1 g/dL (12.0-16.0); LYMPHOCYTES # (AUTO) 1.4 K/uL (2.5-16.5); LYMPHOCYTES % (AUTO) 17.2 % (20.5-51.1); MEAN CORPUSCULAR HEMOGLOBIN 25 pg (27-31); MEAN CORPUSCULAR HGB CONC 31 g/dL (33-37); MEAN CORPUSCULAR VOLUME 81 fL (80-94); MONOCYTES # (AUTO) 0.8 K/uL (0.8-1.0); MONOCYTES % (AUTO) 9.9 % (1.7-9.3); NEUTROPHILS # (AUTO) 5.4 K/uL (1.8-7.7); NEUTROPHILS % (AUTO) 65.3 % (42.2-75.2); PLATELET COUNT (AUTO) 425 K/uL (140-450); RED BLOOD CELL COUNT(AUTO) 5.21 MIL/uL (4.20-5.40); RED CELL DISTRIBUTION WIDTH 18.3 % (11.6-13.7); WHITE BLOOD COUNT (AUTO) 8.2 K/uL (4.8-10.8)
[2017-04-15 07:08] LABS: ANION GAP 15.4 (8-16); CARBON DIOXIDE 24.8 mmol/L (21-32); CREATININE 0.7 mg/dL (0.6-1.3); POTASSIUM 3.2 mmol/L (3.5-5.1)
[2017-04-15 08:00] VITALS: BP 133/76
[2017-04-15 08:08] LABS: MAGNESIUM 1.9 mg/dL (1.8-2.4); PHOSPHORUS 3.1 mg/dL (2.5-4.9)
[2017-04-15] MEDS: DONEPEZIL 10 MG TAB GT SCH (08:25)
[2017-04-15] MEDS: DEXT 5% /NACL 0.9% 1,000 ML IV SCH ×2 (08:25→18:19)
[2017-04-15] MEDS: lamoTRIgine 25 MG TAB PO SCH ×2 (08:26→21:00)
[2017-04-15] MEDS: metFORMIN 500 MG TAB PO SCH (08:26)
[2017-04-15] MEDS: DOCUSATE SODIUM 100 MG GELCAP PO SCH ×2 (08:26→21:00)
[2017-04-15] MEDS: LACTOBACILLUS RHAMNOSUS GG 1 EACH CAP PO SCH (08:26)
[2017-04-15] MEDS: ASPIRIN 81 MG TAB.CHEW GT SCH (08:26)
[2017-04-15] MEDS: predniSONE 10 MG TAB PO SCH (08:26)
[2017-04-15] MEDS: LABETALOL 100 MG TAB PO SCH ×4 (08:27→21:00)
[2017-04-15] MEDS: MULTIVITAMIN 1 TAB PO SCH (08:27)
[2017-04-15] MEDS: MONTELUKAST SODIUM 10 MG TAB PO SCH (08:27)
[2017-04-15] MEDS: amLODIPine 5 MG TAB PO SCH (08:27)
[2017-04-15] MEDS ORDERED: diphenhydrAMINE 50 MG/ML VIAL IVP PRN (09:00)
[2017-04-15] MEDS ORDERED: POTASSIUM CHLORIDE 40 MEQ, LIDOCAINE 1% 25 MG in NACL 0.9% 250 ML IV SCH (14:00)
[2017-04-15 16:00] VITALS: BP 128/84
[2017-04-15] MEDS: INSULIN LISPRO SLIDING SCALE 100 UNITS/ML VIAL SUBQ PRN (18:40)
[2017-04-15 20:00] VITALS: BP 122/78
[2017-04-16] VITALS: BP 116/64
[2017-04-16] MEDS: DEXT 5% /NACL 0.9% 1,000 ML IV SCH ×2 (01:11→02:13)
[2017-04-16] MEDS: BLOOD GLUCOSE MONITORING 1 DEV DEV FS SCH ×3 (06:03→21:26)
[2017-04-16] MEDS: INSULIN LISPRO SLIDING SCALE 100 UNITS/ML VIAL SUBQ PRN (06:19)
[2017-04-16 06:23] LABS: BASOPHILS # (AUTO) 0.1 K/uL (0.00-0.22); BASOPHILS % (AUTO) 1.3 % (0.0-2.0); EOSINOPHILS # (AUTO) 0.6 K/uL (0-0.4); HEMATOCRIT 40.2 % (36-48); HEMOGLOBIN 12.5 g/dL (12.0-16.0); LYMPHOCYTES # (AUTO) 1.8 K/uL (2.5-16.5); LYMPHOCYTES % (AUTO) 22.8 % (20.5-51.1); MEAN CORPUSCULAR HEMOGLOBIN 25 pg (27-31); MEAN CORPUSCULAR HGB CONC 31 g/dL (33-37); MEAN CORPUSCULAR VOLUME 81 fL (80-94); MONOCYTES % (AUTO) 12.2 % (1.7-9.3); NEUTROPHILS # (AUTO) 4.4 K/uL (1.8-7.7); NEUTROPHILS % (AUTO) 56.7 % (42.2-75.2); PLATELET COUNT (AUTO) 386 K/uL (140-450); RED BLOOD CELL COUNT(AUTO) 4.95 MIL/uL (4.20-5.40); RED CELL DISTRIBUTION WIDTH 18.5 % (11.6-13.7); WHITE BLOOD COUNT (AUTO) 7.9 K/uL (4.8-10.8)
[2017-04-16 06:43] LABS: ANION GAP 13.2 (8-16); CALCIUM 8.3 mg/dL (8.5-10.1); CARBON DIOXIDE 22.3 mmol/L (21-32); CREATININE 0.6 mg/dL (0.6-1.3); POTASSIUM 3.5 mmol/L (3.5-5.1)
[2017-04-16 06:51] LABS: MAGNESIUM 1.8 mg/dL (1.8-2.4); PHOSPHORUS 2.8 mg/dL (2.5-4.9)
[2017-04-16 08:00] VITALS: BP 92/59
[2017-04-16] MEDS: LABETALOL 100 MG TAB PO SCH ×4 (09:00→21:00)
[2017-04-16] MEDS: DONEPEZIL 10 MG TAB GT SCH (09:00)
[2017-04-16] MEDS: DOCUSATE SODIUM 100 MG GELCAP PO SCH ×2 (09:00→21:00)
[2017-04-16] MEDS: LACTOBACILLUS RHAMNOSUS GG 1 EACH CAP PO SCH (09:00)
[2017-04-16] MEDS: lamoTRIgine 25 MG TAB PO SCH ×2 (09:00→21:00)
[2017-04-16] MEDS: metFORMIN 500 MG TAB PO SCH (09:00)
[2017-04-16] MEDS ORDERED: ALENDRONATE SODIUM 70 MG TAB PO SCH (09:00)
[2017-04-16] MEDS: ASPIRIN 81 MG TAB.CHEW GT SCH (09:00)
[2017-04-16] MEDS: MONTELUKAST SODIUM 10 MG TAB PO SCH (09:00)
[2017-04-16] MEDS: amLODIPine 5 MG TAB PO SCH (09:00)
[2017-04-16] MEDS: MULTIVITAMIN 1 TAB PO SCH (09:00)
[2017-04-16] MEDS: predniSONE 10 MG TAB PO SCH (09:00)
[2017-04-16] MEDS ORDERED: HYDROmorphone 1 MG/ML AMP IVP PRN (14:55)
[2017-04-16] MEDS ORDERED: HYDROmorphone 1 MG/ML AMP IVP SCH (14:58)
[2017-04-16 16:00] VITALS: BP 109/42
[2017-04-16 20:00] VITALS: BP 125/85
[2017-04-17] VITALS: BP 122/61
[2017-04-17] MEDS: DEXT 5% /NACL 0.9% 1,000 ML IV SCH ×2 (02:54→12:36)
[2017-04-17] MEDS: BLOOD GLUCOSE MONITORING 1 DEV DEV FS SCH ×3 (06:51→16:27)
[2017-04-17 07:22] LABS: BASOPHILS # (AUTO) 0.2 K/uL (0.00-0.22); BASOPHILS % (AUTO) 2.6 % (0.0-2.0); EOSINOPHILS # (AUTO) 0.7 K/uL (0-0.4); EOSINOPHILS % (AUTO) 7.4 % (0.0-4.0); HEMATOCRIT 40.2 % (36-48); HEMOGLOBIN 12.4 g/dL (12.0-16.0); LYMPHOCYTES # (AUTO) 1.7 K/uL (2.5-16.5); LYMPHOCYTES % (AUTO) 17.9 % (20.5-51.1); MEAN CORPUSCULAR HEMOGLOBIN 25 pg (27-31); MEAN CORPUSCULAR HGB CONC 31 g/dL (33-37); MEAN CORPUSCULAR VOLUME 82 fL (80-94); MONOCYTES # (AUTO) 0.9 K/uL (0.8-1.0); MONOCYTES % (AUTO) 9.8 % (1.7-9.3); NEUTROPHILS # (AUTO) 5.8 K/uL (1.8-7.7); NEUTROPHILS % (AUTO) 62.3 % (42.2-75.2); PLATELET COUNT (AUTO) 337 K/uL (140-450); RED BLOOD CELL COUNT(AUTO) 4.93 MIL/uL (4.20-5.40); RED CELL DISTRIBUTION WIDTH 18.7 % (11.6-13.7)
[2017-04-17 07:50] LABS: CALCIUM 9.1 mg/dL (8.5-10.1); CREATININE 0.6 mg/dL (0.6-1.3)
[2017-04-17 07:57] LABS: MAGNESIUM 1.8 mg/dL (1.8-2.4); PHOSPHORUS 2.7 mg/dL (2.5-4.9)
[2017-04-17 08:00] VITALS: BP 134/74
[2017-04-17 08:04] LABS: POTASSIUM 3.2 mmol/L (3.5-5.1)
[2017-04-17 08:11] LABS: ANION GAP 17.7 (8-16); CARBON DIOXIDE 20.5 mmol/L (21-32)
[2017-04-17] MEDS: MONTELUKAST SODIUM 10 MG TAB PO SCH (09:00)
[2017-04-17] MEDS: DOCUSATE SODIUM 100 MG GELCAP PO SCH (09:00)
[2017-04-17] MEDS: lamoTRIgine 25 MG TAB PO SCH (09:00)
[2017-04-17] MEDS: DONEPEZIL 10 MG TAB GT SCH (09:00)
[2017-04-17] MEDS: ASPIRIN 81 MG TAB.CHEW GT SCH (09:00)
[2017-04-17] MEDS: MULTIVITAMIN 1 TAB PO SCH (09:00)
[2017-04-17] MEDS: LABETALOL 100 MG TAB PO SCH ×2 (09:00→12:36)
[2017-04-17] MEDS: amLODIPine 5 MG TAB PO SCH (09:00)
[2017-04-17] MEDS: predniSONE 10 MG TAB PO SCH (09:00)
[2017-04-17] MEDS: LACTOBACILLUS RHAMNOSUS GG 1 EACH CAP PO SCH (09:00)
[2017-04-17] MEDS: metFORMIN 500 MG TAB PO SCH (09:00)
[2017-04-17 09:18] LABS: WHITE BLOOD COUNT (AUTO) 9.3 K/uL (4.8-10.8)
[2017-04-17] MEDS ORDERED: fentaNYL 0.05 MG/ML VIAL ONE (09:19)
[2017-04-17] MEDS ORDERED: MIDAZOLAM 2 MG/2 ML VIAL ONE (09:20)
[2017-04-17] MEDS ORDERED: MIDAZOLAM 2 MG/2 ML VIAL IVP ONE (10:50)
[2017-04-17] MEDS ORDERED: fentaNYL 0.05 MG/ML VIAL IVP ONE (10:50)
[2017-04-17] MEDS: diphenhydrAMINE 2% 30 GM TUBE TP PRN (11:29)
[2017-04-17] MEDS ORDERED: VANC1PLA7 IV (14:35)
[2017-04-17 16:00] VITALS: BP 134/82
== END 2017-04-17 17:32 | DRG 252 ==
LOC: MED 11:28 → MTU 14:09
PROVIDERS: ADMIT Family Medicine; ATTEND Family Medicine
PROC: 0DH63UZ Insertion of Feeding Device into Stomach, Percutaneous Approach (ICD-10-PCS; principal; 2017-04-17 09:30)
DX: K94.22 Gastrostomy infection (principal); N17.0 Acute kidney failure with tubular necrosis; A41.9 Sepsis, unspecified organism; G93.41 Metabolic encephalopathy; G30.9 Alzheimer's disease, unspecified; F02.81 Dementia in other diseases classified elsewhere, unspecified severity, with behavioral disturbance; D68.59 Other primary thrombophilia; I11.0 Hypertensive heart disease with heart failure; I50.9 Heart failure, unspecified; E11.51 Type 2 diabetes mellitus with diabetic peripheral angiopathy without gangrene; E11.65 Type 2 diabetes mellitus with hyperglycemia; N39.0 Urinary tract infection, site not specified; L03.311 Cellulitis of abdominal wall; J44.9 Chronic obstructive pulmonary disease, unspecified; F20.9 Schizophrenia, unspecified; K21.9 Gastro-esophageal reflux disease without esophagitis; F32.9 Major depressive disorder, single episode, unspecified; M81.0 Age-related osteoporosis without current pathological fracture; R63.3 Feeding difficulties; Z79.82 Long term (current) use of aspirin; Z79.899 Other long term (current) drug therapy; Z86.73 Personal history of transient ischemic attack (TIA), and cerebral infarction without residual deficits; Z88.1 Allergy status to other antibiotic agents; Z28.21 Immunization not carried out because of patient refusal; Y83.9 Surgical procedure, unspecified as the cause of abnormal reaction of the patient, or of later complication, without mention of misadventure at the time of the procedure; Y92.89 Other specified places as the place of occurrence of the external cause
CPT/HCPCS: 36415; 70450; 71010; 76705; 80048; 80053; 80305; 81001; 82140; 82150; 82550; 82553; 82948; 83036; 83605; 83690; 83735; 83874; 83880; 84100; 84439; 84443; 84484; 85025; 85610; 85730; 87040; 87070; 87075; 87081; 87086; 87186; 93005; 93880; 93925; 93970; 96365; 96367; 97110; 97116; 97140; 97530; 99285; C1758; J0456; J0690; J0696; J1170; J1200; J1815; J2001; J2250; J3010; J3480; J7030; J7042; J7060; J7512; Q0092

== ENCOUNTER 2017-08-21 10:56 | Inpatient (IN) | payer MEDICAID, MEDICARE ==
[~2017-08-21] VITALS: Ht 167.6 cm; Wt 54.0 kg
[~2017-08-21 10:56] MED LIST changes: -ACET-2619 PO; -AMOX-999 PO; +BACTO TP; +DONE10TA10 PO; -DONE10TA3 PO; +FERROUS SULFATE GT; +HYDR-2912 GT; +MULT-153 GT; +SULF-59 GT/PO; +VANC1PLA7 IV
[2017-08-21 11:06] VITALS: BP 132/82
[2017-08-21] MEDS ORDERED: NACL 0.9% 1,000 ML IV SCH (11:26)
--- NOTE | 2017-08-21 11:26 | NUR ---
PT BIBA TO BED 1 AT THIS TIME.
--- NOTE | 2017-08-21 11:27 | NUR ---
Patient being evaluated by physician at bedside.
--- NOTE | 2017-08-21 11:33 | NUR ---
PT TO CT VIA [place] [facility] PROTOCOL MAINTAINED-----
--- NOTE | 2017-08-21 11:41 | NUR ---
RETURNED FROM CT---CXR COMPLETED WHILE IN RADIOLOGY
--- NOTE | 2017-08-21 11:49 | NUR ---
LAB AT BEDSIDE
--- NOTE | 2017-08-21 12:30 | NUR ---
PT TURNED TO VIEW ANY SKIN BREAK---LINEN CHANGED, GOWN CHANGED, DIAPER CHANGED NO SKIN BREAK NOTED---PT COOPERATIVE AND ASSISTED IN TURNING--- X2 SR UP GUERNEY LOW AND LOCKED POSITION
[2017-08-21 12:48] LABS: ANION GAP 15.6 (8-16); CARBON DIOXIDE 27.1 mmol/L (21-32); HEMATOCRIT 46.4 % (36-48); HEMOGLOBIN 14.3 g/dL (12.0-16.0); MEAN CORPUSCULAR HEMOGLOBIN 26 pg (27-31); MEAN CORPUSCULAR HGB CONC 31 g/dL (33-37); MEAN CORPUSCULAR VOLUME 83 fL (80-94); PLATELET COUNT (AUTO) 343 K/uL (140-450); POTASSIUM 3.7 mmol/L (3.5-5.1); RED BLOOD CELL COUNT(AUTO) 5.61 MIL/uL (4.20-5.40); RED CELL DISTRIBUTION WIDTH 15.3 % (11.6-13.7); WHITE BLOOD COUNT (AUTO) 20.1 K/uL (4.8-10.8)
[2017-08-21 13:00] LABS: LYMPHOCYTES % (MANUAL) 11 % (20-46); MONOCYTES % (MANUAL) 5 % (5-12)
[2017-08-21] MEDS ORDERED: PIPERACILLIN/TAZOBACTAM 3.375 GM in DEXTROSE 5% 50 ML IV ONE (13:10)
[2017-08-21 13:11] LABS: ALBUMIN 3.5 g/dL (3.4-5.0); TOTAL BILIRUBIN 0.7 mg/dL (0.0-1.0)
[2017-08-21 13:34] LABS: BILIRUBIN,URINE NEGATIVE (NEGATIVE); BLOOD, URINE TRACE-I (NEGATIVE); COLOR,URINE YELLOW (YELLOW); LEUKOCYTE ESTERASE ,URINE NEGATIVE (NEGATIVE); NITRITE, URINE NEGATIVE (NEGATIVE); UGLUCOSE 1+ (NEGATIVE)
[2017-08-21] MEDS ORDERED: PIPERACILLIN/TAZOBACTAM 3.375 GM VIAL IV ONE (13:47)
[2017-08-21 13:51] LABS: APPEARANCE,URINE HAZY (CLEAR)
[2017-08-21 13:54] LABS: RBC,URINE 0-5 (RARE) /HPF (0-5); WBC,URINE 0-5 (RARE) /HPF (0-5)
--- NOTE | 2017-08-21 14:02 | NUR ---
Pt transferred to Med/Surg via [facility] ROOM 124-A REPORT GIVEN TO ALINA ALMAGUER
--- NOTE | 2017-08-21 14:04 | NUR ---
REPOSITIONED UP IN [facility]---MOVING ALL EXTREMITIES--REMAINS SOMNOLENT, DENIES PAIN, NO S/S/ RESP DISTRESS NOTED AT THIS TIME
--- NOTE | 2017-08-21 14:34 | NUR ---
WILL DO LP AT BEDSIDE---
--- NOTE | 2017-08-21 15:06 | NUR ---
REMAINS NON VERBAL , SOMNOLENT---COOPERATIVE WHEN ASKED TO CHANGE POSITION --
--- NOTE | 2017-08-21 15:32 | NUR ---
LP COMPLETED, PT TOLERATED WITH MINIMAL DISCOMFORT---SOFT MODERATE STOOL NOTED CLEANED CHANGED REPOSITIONED TO SUPINE---PT CROSSED FEET RIGHT HAND BEHIND HEAD-----
[2017-08-21] MEDS ORDERED: NACL 0.9% 1,000 ML IV ONE (16:45)
--- NOTE | 2017-08-21 16:49 | NUR ---
dispo admission, awaits available room
--- NOTE | 2017-08-21 17:30 | NUR ---
PT ARRIVED ON THE UNIT WITH 2 ER NURSES. RECEIVED REPORT AT BEDSIDE FOR CONTINUITY OF CARE. PT IS HAS HER EYES CLOSED BUT CAN BE AROUSED AND OBEYS SIMPLE COMMANDS. SKIN INTACT. GTUBE IN LUQ. ROMERO IN PLACE. IV ON L FA 20G, INFUSING NS BOLUS. V/S WITHIN NORMAL RANGE. MRSA SCREENING DONE. YELLOW BAND AND SOCKS ADMINISTERED. YELLOW SIGN ON DOOR. PT IS RESTING COMFORTABLY. NO SIGNS OF DISTRESS. DENIES PAIN. WILL START THE ADMISSION PROCESS. DR. ORLANDO IS HERE TO ASSESS PT.
--- NOTE | 2017-08-21 17:36 | NUR ---
Pt transferred to Tele via [facility] rm 122-b report given to Valerie ALMAGUER
[2017-08-21] MEDS: POTASSIUM CHL 20 MEQ/ 1/2 NS 1,000 ML IV SCH (17:40)
[2017-08-21 18:23] VITALS: BP 145/90
[2017-08-21 20:00] VITALS: BP 148/92
[2017-08-21] MEDS ORDERED: VANCOMYCIN PER PHARMACY MC PRN (20:25)
[2017-08-21] MEDS: LABETALOL 100 MG TAB PO SCH (22:15)
[2017-08-21] MEDS: lamoTRIgine 25 MG TAB PO SCH (22:16)
[2017-08-21] MEDS: VANCOMYCIN 1GM/DEXT 5% PREMIX 200 ML IV SCH (22:27)
[2017-08-21] MEDS ORDERED: VANCOMYCIN 1,000 MG VIAL ONE (22:29)
--- NOTE | 2017-08-21 22:30 | NUR ---
ADMINISTERED EVENING MEDS. CHECKED THE GTUBE PLACEMENT, RESIDUAL, PATENCY. PT TOLERATED WELL. PT SLEEPING SOUNDLY. WILL CONTINUE TO MONITOR PT.
--- NOTE | 2017-08-21 22:31 | NUR ---
ENDORSED PT TO THE BAR CAPTAIN NURSE AT BEDSIDE FOR CONTINUITY OF CARE. PT IS IN STABLE CONDITION.
[2017-08-22] VITALS: BP_SYST 123
--- NOTE | 2017-08-22 | NUR ---
AWAKEN BRIEFLY FOR V/S, NO SIGNS OF DISTRESS.TURN FOR COMFORT.
--- NOTE | 2017-08-22 01:04 | NUR ---
PT SLEEPING IN BED. NO S/S OF ACUTE DISTRESS. IV SITE PATENT AND INTACT. ROMERO CATHETER PATENT. CALL LIGHT WITHIN REACH. SAFETY MEASURES ENSURED. WILL CONTINUE TO MONITOR.
[2017-08-22] MEDS: POTASSIUM CHL 20 MEQ/ 1/2 NS 1,000 ML IV SCH ×3 (03:40→23:40)
[2017-08-22 04:00] VITALS: BP 116/72
--- NOTE | 2017-08-22 04:16 | NUR ---
PT SLEEPING IN BED. NO S/S OF ACUTE DISTRESS. WILL CONTINUE TO MONITOR.
[2017-08-22] MEDS ORDERED: DEXTROSE 50% 50 ML SYR IVP PRN (07:25)
[2017-08-22] MEDS: BLOOD GLUCOSE MONITORING 1 DEV DEV FS SCH ×4 (07:30→20:36)
--- NOTE | 2017-08-22 07:30 | NUR ---
PT SLEEPING IN BED. NO S/S OF ACUTE DISTRESS. AAOX1. NO S/S OF ACUTE DISTRESS. FLACC-0. IV SITE PATENT AND ITNACT. NICK PATENT. CALL LIGHT WITHIN REACH. SAFETY MEASURES ENSURED. WILL CONTINUE TO MONITOR.
[2017-08-22 07:41] LABS: BASOPHILS # (AUTO) 0.3 K/uL (0.00-0.22); BASOPHILS % (AUTO) 2.7 % (0.0-2.0); EOSINOPHILS # (AUTO) 0.2 K/uL (0-0.4); EOSINOPHILS % (AUTO) 1.9 % (0.0-4.0); HEMATOCRIT 39.5 % (36-48); HEMOGLOBIN 12.4 g/dL (12.0-16.0); LYMPHOCYTES # (AUTO) 1.8 K/uL (2.5-16.5); LYMPHOCYTES % (AUTO) 15.8 % (20.5-51.1); MEAN CORPUSCULAR HEMOGLOBIN 26 pg (27-31); MEAN CORPUSCULAR HGB CONC 32 g/dL (33-37); MEAN CORPUSCULAR VOLUME 82 fL (80-94); MONOCYTES # (AUTO) 1.5 K/uL (0.8-1.0); MONOCYTES % (AUTO) 12.9 % (1.7-9.3); NEUTROPHILS # (AUTO) 7.8 K/uL (1.8-7.7); NEUTROPHILS % (AUTO) 66.7 % (42.2-75.2); PLATELET COUNT (AUTO) 329 K/uL (140-450); RED BLOOD CELL COUNT(AUTO) 4.79 MIL/uL (4.20-5.40); RED CELL DISTRIBUTION WIDTH 15.2 % (11.6-13.7); WHITE BLOOD COUNT (AUTO) 11.6 K/uL (4.8-10.8)
[2017-08-22 08:00] VITALS: BP 100/55
[2017-08-22 08:11] LABS: ALBUMIN 2.9 g/dL (3.4-5.0); ANION GAP 13.4 (8-16); CARBON DIOXIDE 25.2 mmol/L (21-32); CREATININE 0.7 mg/dL (0.6-1.3); POTASSIUM 3.6 mmol/L (3.5-5.1); TOTAL BILIRUBIN 0.9 mg/dL (0.0-1.0)
[2017-08-22] MEDS: lamoTRIgine 25 MG TAB PO SCH ×2 (08:48→20:37)
[2017-08-22] MEDS: predniSONE 20 MG TAB PO SCH (08:49)
[2017-08-22] MEDS: PANTOPRAZOLE 40 MG TABEC PO SCH (08:49)
[2017-08-22] MEDS: LABETALOL 100 MG TAB PO SCH ×2 (08:50→20:37)
[2017-08-22] MEDS: cefTRIAXone 2,000 MG in DEXTROSE 5% 100 ML IV SCH ×2 (08:51→22:58)
[2017-08-22] MEDS: ENOXAPARIN 30 MG/0.3 ML SYR SUBQ SCH (08:52)
--- NOTE | 2017-08-22 09:06 | NUR ---
AM MEDICATIONS GIVEN WITH EDUCATION. FLACC-0. WILL CONTINUE TO MONITOR.
--- NOTE | 2017-08-22 09:08 | NUR ---
PATIENT HAS BEEN SCREENED AND CATEGORIZED HIGH NUTRITION RISK. PATIENT WILL BE SEEN WITHIN 1-2 DAYS OF ADMISSION. 08/22/17-08/23/[address]
--- NOTE | 2017-08-22 10:04 | NUR ---
ENDORSED PLAN OF CARE TO TRIPP RIVERA. PT STABLE.
--- NOTE | 2017-08-22 10:55 | NUR ---
RECEIVED PATIENT REPORT AT BEDSIDE. PT SLEEPING IN BED. NO S/S OF ACUTE DISTRESS. IV SITE PATENT AND INTACT. ROMERO CATHETER PATENT. CALL LIGHT WITHIN REACH. SAFETY MEASURES ENSURED. WILL CONTINUE TO MONITOR.
[2017-08-22 12:00] VITALS: BP 107/70
--- NOTE | 2017-08-22 12:30 | NUR ---
RECEIVED PATIENT REPORT AT BEDSIDE FROM LUISITO. PT AWAKE AND ALERT. NO S/S OF ACUTE DISTRESS. IV SITE PATENT AND INTACT. ROMERO CATHETER PATENT. CALL LIGHT WITHIN REACH. SAFETY MEASURES ENSURED. WILL CONTINUE TO MONITOR.
--- NOTE | 2017-08-22 12:30 | NUR ---
PATIENT IS ORIENTED X2 TO NAME AND PLACE.
[2017-08-22] MEDS: INSULIN LISPRO SLIDING SCALE 100 UNITS/ML VIAL SUBQ PRN (13:05)
--- NOTE | 2017-08-22 15:00 | NUR ---
PT IV ON THE LEFT FA WAS INFILTRATED. NEW IV INSERTED ON THE LEFT FA., 22 GAUGE.
[2017-08-22 16:00] VITALS: BP 119/76
--- NOTE | 2017-08-22 17:40 | NUR ---
* ST NOTE * Pt seen at bedside w/nsg present. Pt alert and cooperative, reporting no c/o pain at this time. Bedside dysphagia and oral mechanism exams completed. See evaluation report for further details. Pt tolerating 3/3 alternating PO trials of puree apple sauce 3-5 CCs at a time via a spoon as well as 5/5 alternating PO trials of thin liquid apple juice via a straw, all w/o s/s of aspiration. Pt and caregiver/nsg education completed regarding safe swallow compensatory strategies pt and caregiver/nsg could utilize to aid pt w/swallow function, w/pt and caregiver/nsg verbalizing understanding and agreement. It is recommended pt's PO diet consistency be modified to puree textures w/thin liquids for all meals, w/close supervision to assure aspiratoin precautions are maintained during pt's PO intake. No further ST follow up recommended at this time. Pt and caregivers/nsg education completed regarding results of evaluation; benefits of abiding by aspiration precautions and recommended PO diet consistency; and prognosis for improvement; with pt and caregivers/nsg verbalizing understanding and agreement w/clinician's recommendations. Recommend: - PO diet consistency of PUREE TEXTURES W/THIN LIQUIDS for all meals - Pt requires assistance w/feeding - CLOSE supervision by caregivers/staff during PO intake to assure STRICT aspiration precautions are in place 2/2 to pt's dementia and hx of aspiration PNA No further ST follow up recommended at this time. G8996 G8997 CI G8998 CI NOMS Level 2 Time In/Out 17:00 - 17:30
--- NOTE | 2017-08-22 18:00 | NUR ---
PT PULLED OUT HER IV CATH. WILL START NEW ONE.
--- NOTE | 2017-08-22 18:30 | NUR ---
PT PASSED SWALLOWING EVAL. PT IS NOW ON PUREED DIET, CALLED KITCHEN FOR DINNER TRAY.
[2017-08-22] MEDS: LORazepam 0.5 MG TAB PO PRN (18:55)
--- NOTE | 2017-08-22 19:00 | NUR ---
PT CONSTANTLY REMOVING HER TELE BOX AND PULLING ON HER ROMERO CATH. ADMINISTER ATIVAN PO WITH APPLE SAUCE.
--- NOTE | 2017-08-22 19:30 | NUR ---
ENDORSED PT TO STUDY ABROAD COORDINATOR RN. PT IS IN STABLE CONDITION.
--- NOTE | 2017-08-22 19:31 | NUR ---
RECEIVED BEDSIDE REPORT FROM DAY SHIFT NURSE EVE BADILLO STABLE NO DISTRESS NOTED, PT HAS NO IV ACCESS, PT CONFUSED, PULLED THE TELE MONITOR OFF, AND TRIED TO PULL THE GTUBE AND ROMERO. WILL CONTINUE TO MONITOR. GTUBE AND ROMERO IN PLACE, ROMERO DRAINING YELLOW URINE. WILL CONTINUE TO MONITOR.
[2017-08-22 20:00] VITALS: BP 127/78
--- NOTE | 2017-08-22 20:27 | NUR ---
PT KEEPS TAKING OF TELE MONITOR, REFUSING TO PUT IT ON, PT STABLE, NO DISTRESS NOTED, CALL LIGHT WITHIN REACH, WILL CONTINUE TO MONITOR.
--- NOTE | 2017-08-22 20:50 | NUR ---
ATTEMPT TO INSERT IV ON PT, CHARGE NURSE WAS UNABLE TO INSERT IV, CALLED ER FOR ATTEMPT, ER CHARGE NURSE SAID WILL COME.
--- NOTE | 2017-08-22 22:40 | NUR ---
IV INSERTED ON PT 24G ON R FA BY ER NURSE, PT STABLE NO DISTRESS NOTED, CALL LIGHT WITHIN REACH,WILL CONTINUE TO MONITOR.
[2017-08-22] MEDS ORDERED: HALOPERIDOL IM 5 MG/ML VIAL IM SCH (22:50)
[2017-08-22] MEDS: VANCOMYCIN 1GM/DEXT 5% PREMIX 200 ML IV SCH (22:57)
[2017-08-22] MEDS ORDERED: VANCOMYCIN 1,000 MG VIAL ONE (23:01)
[2017-08-23] VITALS: BP 131/71
--- NOTE | 2017-08-23 00:05 | NUR ---
PT RESTING, NO DISTRESS NOTED, PT STABLE, COOPERATIVE AND CALM, WILL CONTINUE TO MONITOR.
--- NOTE | 2017-08-23 02:10 | NUR ---
PT TOOK OFF TELE MONITOR. REORIENT PT, PT STABLE, NO DISTRESS NOTED, COOPERATIVE. WILL CONTINUE TO MONITOR.
[2017-08-23 04:00] VITALS: BP 127/77
--- NOTE | 2017-08-23 05:14 | NUR ---
CHECKED ON PT, PT SLEEPING, NO DISTRESS NOTED, COOPERATIVE, WILL CONTINUE TO MONITOR.
[2017-08-23] MEDS: BLOOD GLUCOSE MONITORING 1 DEV DEV FS SCH ×4 (06:44→21:40)
[2017-08-23 06:47] LABS: HEMATOCRIT 39.1 % (36-48); HEMOGLOBIN 12.4 g/dL (12.0-16.0); MEAN CORPUSCULAR HEMOGLOBIN 26 pg (27-31); MEAN CORPUSCULAR HGB CONC 32 g/dL (33-37); MEAN CORPUSCULAR VOLUME 82 fL (80-94); PLATELET COUNT (AUTO) 287 K/uL (140-450); RED BLOOD CELL COUNT(AUTO) 4.78 MIL/uL (4.20-5.40); RED CELL DISTRIBUTION WIDTH 14.7 % (11.6-13.7); WHITE BLOOD COUNT (AUTO) 8.3 K/uL (4.8-10.8)
[2017-08-23 07:11] LABS: ANION GAP 13.7 (8-16); CARBON DIOXIDE 24.3 mmol/L (21-32); CREATININE 0.7 mg/dL (0.6-1.3)
--- NOTE | 2017-08-23 07:17 | NUR ---
GAVE BEDSIDE REPORT TO DAY SHIFT NURSE JUSTINO RN, ENDORSED PLAN OF CARE, PT STABLE NO DISTRESS NOTED.
--- NOTE | 2017-08-23 07:30 | NUR ---
RECEIVED PATIENT REPORT AT BEDSIDE FROM EXERCISE INSTRUCTOR NURSE. PT AWAKE AND ALERT. NO S/S OF ACUTE DISTRESS. IV SITE NOTED TO THE LEFT FA, WRAPPED WITH GAUZE, PATENT AND INTACT. ROMERO CATH PATENT, DRAINING ORANGE URINE. CALL LIGHT WITHIN REACH. SAFETY MEASURES ENSURED. WILL CONTINUE TO MONITOR.
[2017-08-23] MEDS ORDERED: POTASSIUM CHLORIDE 10 MEQ TABER PO SCH (07:47)
[2017-08-23 08:00] VITALS: BP 141/81
[2017-08-23 08:34] LABS: LYMPHOCYTES % (MANUAL) 24 % (20-46); MONOCYTES % (MANUAL) 6 % (5-12)
[2017-08-23 08:35] LABS: EOSINOPHILS % (MANUAL) 2 % (0-4)
--- NOTE | 2017-08-23 09:00 | NUR ---
DR ORLANDO HAS SEEN THE PT. DC IF OK WITH DR SEARS. WAITING ON RESULT OF SPINAL FLUID CULTURE AND BLOOD CULTURE.
[2017-08-23] MEDS: lamoTRIgine 25 MG TAB PO SCH ×2 (09:17→21:40)
[2017-08-23] MEDS: LABETALOL 100 MG TAB PO SCH ×2 (09:18→21:39)
[2017-08-23] MEDS: predniSONE 20 MG TAB PO SCH (09:19)
[2017-08-23] MEDS: PANTOPRAZOLE 40 MG TABEC PO SCH (09:19)
[2017-08-23] MEDS: cefTRIAXone 2,000 MG in DEXTROSE 5% 100 ML IV SCH ×2 (09:22→21:39)
[2017-08-23] MEDS: ENOXAPARIN 30 MG/0.3 ML SYR SUBQ SCH (09:36)
[2017-08-23 12:00] VITALS: BP 135/81
[2017-08-23] MEDS: INSULIN LISPRO SLIDING SCALE 100 UNITS/ML VIAL SUBQ PRN ×2 (12:35→18:37)
--- NOTE | 2017-08-23 14:28 | NUR ---
08/23/17 RD INITIAL ASSESSMENT COMPLETED PLEASE REFER TO NUTRITION ASSESSMENT UNDER CARE ACTIVITY FOR ESTIMATED NUTRITIONAL NEEDS. 1. CONTINUE CCHO 45 GM, PUREE DIET WITH THIN LIQUIDS PER SWALLOW EVALUATION RECOMMENDATION -CCHO 45 GM DIET APPROPRIATE FOR PATIENT 2. ENCOURAGE INCREASED PO INTAKES 3. RD TO FOLLOW-UP 3-5 DAYS, HIGH RISK TRAVIS WASHINGTON RD
--- NOTE | 2017-08-23 15:05 | NUR ---
NO RESIDUAL FOR G TUBE. FLUSHED WITH 30ML OF WATER BY GRAVITY, NO RESISTANCE.
[2017-08-23 16:00] VITALS: BP 134/79
--- NOTE | 2017-08-23 16:30 | NUR ---
BLOOD GLUCOSE 178
--- NOTE | 2017-08-23 19:19 | NUR ---
ENDORSED PT TO RISK PROFESSIONAL. PT IN STABLE CONDITION.
--- NOTE | 2017-08-23 19:20 | NUR ---
RECEIVED PT FROM JUSTINO ALMAGUER PT CONFUSED AAOX1 ON TELEMETRY SR IV ON LEFT FA GAUGE # 24 SEVERE WEAKNESS G TUBE FEEDING IN PLACE PATENT ZERO RESIDUAL, ROMERO CATH KIM RODRIGUEZ URINE PT REPOSITIONED INITIAL ASSESSMENT DONE
--- NOTE | 2017-08-23 19:25 | NUR ---
PT HAS A BULLION DRY SCAB ON RT FOREHEAD
[2017-08-23 20:00] VITALS: BP 122/69
--- NOTE | 2017-08-23 21:30 | NUR ---
BLOOD SUGAR TEST 74 PT REPOSITIONED Q2H NOT DISTRESS NOTED PT COOPERATIVE NOT COMBATIVE
[2017-08-23] MEDS: VANCOMYCIN 1GM/DEXT 5% PREMIX 200 ML IV SCH (21:38)
--- NOTE | 2017-08-23 23:33 | NUR ---
PTON TELEMETRY SR REPOSITIONED Q2H REMAIN STABLE
[2017-08-24] VITALS: BP 118/75
--- NOTE | 2017-08-24 00:49 | NUR ---
PT QUIET SLEEPING IV ON LEFT FA INFUSING WELL ON TELEMETRY SR NOT DISTRESS NOTED
--- NOTE | 2017-08-24 02:00 | NUR ---
PT CONFUSED TRYING TO REMOVED TELEMETRY SET AND ROMERO CATH , FOLLOW COMMANDS PT NOT AGGRESSIVE ON TELEMETRY SR, REPOSITIONED Q2H ROMERO CATH DRAINING WELL YKELLOW URINE
--- NOTE | 2017-08-24 04:00 | NUR ---
SPONGE BATH GIVEN LINEN CHANGED NOT AGITATION ON TELEMETRY SR
[2017-08-24 04:05] VITALS: BP 128/72
--- NOTE | 2017-08-24 06:43 | NUR ---
BLOOD SUGAR NAVIN 96 NOT COVERAGE PT AFTER SPONGE BATH GIVEN GETTING SLEEP, ON TELEMETRY SR
--- NOTE | 2017-08-24 07:20 | NUR ---
RECEIVED PATIENT REPORT AT BEDSIDE FROM GREASE RENDERER NURSE. PT AWAKE AND ALERT, ORIENTED X2, PERSON AND PLACE. NO S/S OF ACUTE DISTRESS. IV SITE NOTED TO THE LEFT FA, WRAPPED WITH GAUZE, PATENT AND INTACT. ROMERO CATH PATENT, DRAINING CLEAR YELLOW URINE. CALL LIGHT WITHIN REACH. SAFETY MEASURES ENSURED. WILL CONTINUE TO MONITOR.
[2017-08-24 08:04] VITALS: BP 136/72
[2017-08-24] MEDS: predniSONE 20 MG TAB PO SCH (08:59)
[2017-08-24] MEDS: PANTOPRAZOLE 40 MG TABEC PO SCH (09:00)
[2017-08-24] MEDS: LABETALOL 100 MG TAB PO SCH ×2 (09:00→21:23)
[2017-08-24] MEDS: lamoTRIgine 25 MG TAB PO SCH ×2 (09:00→21:24)
[2017-08-24] MEDS: ENOXAPARIN 30 MG/0.3 ML SYR SUBQ SCH (09:16)
--- NOTE | 2017-08-24 10:00 | NUR ---
IV G 24 LEFT FA DISLODGED. NEW IV INSERTED 22G LEFT FA. PT TOLERATED WELL
[2017-08-24] MEDS: cefTRIAXone 2,000 MG in DEXTROSE 5% 100 ML IV SCH ×2 (10:05→21:19)
[2017-08-24] MEDS: VANCOMYCIN 750 MG in DEXTROSE 5% 250 ML IV SCH ×2 (11:10→21:31)
[2017-08-24] MEDS: BLOOD GLUCOSE MONITORING 1 DEV DEV FS SCH ×3 (11:30→21:19)
[2017-08-24 12:00] VITALS: BP 137/81
--- NOTE | 2017-08-24 12:00 | NUR ---
PT IN HIGH ORDONEZ, EATING LUNCH BY HERSELF. MINIMAL ASSISTANCE NEEDED. WILL CONTINUE TO MONITOR.
[2017-08-24] MEDS: INSULIN LISPRO SLIDING SCALE 100 UNITS/ML VIAL SUBQ PRN ×2 (13:03→21:15)
--- NOTE | 2017-08-24 14:57 | NUR ---
CM NOTE PER JESUS BEAVER, PATIENT IS ON A 7 DAY BED HOLD.
--- NOTE | 2017-08-24 15:40 | NUR ---
RECEIVED PATIENT REPORT AT BEDSIDE FROM CHIMNEY CONSTRUCTION SUPERVISOR NURSE. PT AWAKE AND ALERT, ORIENTED X2, PERSON AND PLACE. NO S/S OF ACUTE DISTRESS. IV SITE NOTED TO THE LEFT FA, WRAPPED WITH GAUZE, PATENT AND INTACT. ROMERO CATH PATENT, DRAINING CLEAR YELLOW URINE. CALL LIGHT WITHIN REACH. SAFETY MEASURES ENSURED. WILL CONTINUE TO MONITOR. Addendum: 08/24/17 at 1542 by Berto Vallecillo RN PLEASE DISCARD, WRONG TIME ENTERED
[2017-08-24 16:00] VITALS: BP 127/83
--- NOTE | 2017-08-24 16:00 | NUR ---
PT WAS PULLING ON THE URINE CATH. EXPLAINED TO PT THE PURPOSE OF THE CATH AND TOLD HER NOT TO PULL IT. PT VERBALIZED UNDERSTANDING. CHECKED THE CATH, IT'S STILL IN PLACE. DRAINING CLEAR YELLOW URINE.
--- NOTE | 2017-08-24 19:30 | NUR ---
ENDORSED PT TO CUTTING MACHINE OPERATOR RN. PT IN STABLE CONDITION.
--- NOTE | 2017-08-24 19:32 | NUR ---
RECEIVED PT FROM JUSTINO RN PT AAOX1 RESTING ON BED CONFUSED , FOLLOW COMMANDS, ON TELEMETRY SR IV TKO ON LEFT FA INFUSING WELL ON LEFT FA, ROMERO CATH DRAINING WELL YELLOW URINE G TUBE IN PLACE PATENT ZERO RESIDUAL INITIAL ASSESSMENT DONE
[2017-08-24 20:00] VITALS: BP 118/73
--- NOTE | 2017-08-24 21:30 | NUR ---
DR RODRIGUEZ TO SEE THE PT
--- NOTE | 2017-08-24 22:00 | NUR ---
PT REPOSITIONED Q2H NOT DISTRESS NOTED BLOOD SUGAR TEST 199 COVERAGE WITH 2 UNITS HUMALOS SUBQ FOLLOW PROTOCOL
[2017-08-25] VITALS: BP 125/76
--- NOTE | 2017-08-25 01:00 | NUR ---
PT SLEEPING ON TELEMETRY SR NOT DISTRESS NOTED ROMERO CATH DRAINING WELL YELLOW URINE
[2017-08-25 04:00] VITALS: BP 126/70
--- NOTE | 2017-08-25 04:00 | NUR ---
SPONG BATH GIVEN , LINEN CHNGED , ROMERO CATH DRAINING WELL YELOW URINE, ON TELEMETRY SR NOT DISTRESS NOTED
[2017-08-25] MEDS: BLOOD GLUCOSE MONITORING 1 DEV DEV FS SCH ×4 (06:02→21:24)
--- NOTE | 2017-08-25 06:24 | NUR ---
REPOSITIONED Q2H NOT DISTRESS NOTED BLOOD SUGAR TEST 95
--- NOTE | 2017-08-25 07:30 | NUR ---
RECEIVED PT IN BED. ASLEEP. AROUSABLE TO VOICE. PT ALERT ORIENTEDX1 WITH CONFUSION. PT ON BEDREST. ROMERO CATHETER IN PLACE. DRAINIGN CLEAR YELLOW URINE. SAFETY PRECAUTION IN PLACE. CALL LIGHT WITHIN REACH.
[2017-08-25 08:00] VITALS: BP_SYST 137; BP_SYST 142; BP_DIAS 70; BP_DIAS 84
[2017-08-25] MEDS: cefTRIAXone 2,000 MG in DEXTROSE 5% 100 ML IV SCH (08:44)
[2017-08-25] MEDS: LABETALOL 100 MG TAB PO SCH ×2 (08:45→21:08)
[2017-08-25] MEDS: lamoTRIgine 25 MG TAB PO SCH ×2 (08:45→21:08)
[2017-08-25] MEDS: predniSONE 20 MG TAB PO SCH (08:45)
[2017-08-25] MEDS: PANTOPRAZOLE 40 MG TABEC PO SCH (08:45)
[2017-08-25] MEDS: ENOXAPARIN 30 MG/0.3 ML SYR SUBQ SCH (08:52)
--- NOTE | 2017-08-25 09:00 | NUR ---
CHECKED PT'S G-TUBE SITE. NO DISCHARGE NOTED ON SITE. AREA KEPT CLEAN AND DRY. 0 RESIDUAL NOTED. FLUSHED GT, FLUSHING WELL, INTACT, PATENT. TOLERATED WELL.
[2017-08-25] MEDS: VANCOMYCIN 750 MG in DEXTROSE 5% 250 ML IV SCH (10:18)
[2017-08-25 12:00] VITALS: BP 142/84
[2017-08-25] MEDS: INSULIN LISPRO SLIDING SCALE 100 UNITS/ML VIAL SUBQ PRN (12:08)
[2017-08-25 16:00] VITALS: BP 130/82
--- NOTE | 2017-08-25 18:00 | NUR ---
ASSISTED PT WITH EATING. PT VERBALIZED SHE'S HUNGRY. BUT REFUSES TO EAT HER DINNER, OFFERED 3X. PT JUST CONSUMED HALF OF HER VANILLA ICE CREAM. NO SOB NOTED. NO SIGNS AND SYMPTOMS OF ACUTE PAIN OR DISCOMFORT NOTED AT THIS TIME. PT KEPT CLEAN, DRY AND COMFORTABLE. NEEDS ATTENDED. WILL ENDORSE TO NEXT SHIFT. PT ON STABLE, CONDITION. FOR CONTINUITY OF CARE.
--- NOTE | 2017-08-25 19:15 | NUR ---
RECEIVED REPORT FROM AM NURSE. PATIENT IS AWAKE, ALERT, ORIENTED X1. NO SIGNS OF ACUTE DISTRESS NOTED. RESPIRATIONS EVEN AND UNLABORED. IV ACCESS INTACT, PATENT AND ASYMPTOMATIC. ROMERO CATH IN PLACE. BED IN LOW POSITION, BILATERAL HALF SIDE RAILS UP, FALL PRECAUTION IN PLACE, CALL LIGHT WITHIN REACH. WILL CONTINUE TO MONITOR.
--- NOTE | 2017-08-25 19:42 | NUR ---
RECEIVED REPORT FROM AM NURSE. PATIENT IS AWAKE, ALERT, ORIENTED X1. NO SIGNS OF ACUTE DISTRESS NOTED. RESPIRATIONS EVEN AND UNLABORED. PATIENT HAS IV TO LEFT WRIST 20G, INTACT, PATENT AND ASYMPTOMATIC. PATIENT DENIES ANY PAIN AT THIS TIME. BED IN LOW POSITION, BILATERAL HALF SIDE RAILS UP, FALL PRECAUTION IN PLACE, CALL LIGHT WITHIN REACH. WILL CONTINUE TO MONITOR. Addendum: 08/25/17 at 3 by Bel Foster RN DISREGARD ABOVE NOTATION
[2017-08-25 20:00] VITALS: BP 144/91
--- NOTE | 2017-08-25 22:10 | NUR ---
PT IS VERY CONFUSED, AND CONTINUES TO REMOVE TELE MONITOR LEADS.
[2017-08-26] VITALS: BP 128/78
[2017-08-26] MEDS: LORazepam 0.5 MG TAB PO PRN (00:46)
--- NOTE | 2017-08-26 00:59 | NUR ---
PATIENT IS AWAKE, RESTING COMFORTABLY IN BED. NO SIGNS OF ACUTE DISTRESS, RESPIRATIONS EVEN AND UNLABORED. BED IN LOW POSITION, BILATERAL HALF SIDE RAILS UP, CALL LIGHT WITHIN REACH, WILL CONTINUE TO MONITOR.
--- NOTE | 2017-08-26 01:18 | NUR ---
PT IS CONFUSED, CONTINUES TO REMOVE TELE MONITOR. TELE MONITOR, WAS PUT BACK ON PT BUT PT KEEPS REMOVING LEADS.
[2017-08-26 04:00] VITALS: BP 117/70
[2017-08-26] MEDS: BLOOD GLUCOSE MONITORING 1 DEV DEV FS SCH ×2 (06:33→11:19)
--- NOTE | 2017-08-26 07:13 | NUR ---
ENDORSED PT TO AM NURSE FOR CONTINUITY OF CARE. PT IS IN STABLE CONDITION.
--- NOTE | 2017-08-26 07:23 | NUR ---
RECEIVED PT IN BED. ASLEEP. AROUSABLE TO TOUCH. ALERT ORIENTEDX1 WITH CONFUSION. NO SOB NOTED. DENIES ANY PAIN OR DISCOMFORT AT THIS TIME. GT INTACT, PATENT. ROMERO CATHETER IN PLACE, DRAINING CLEAR YELLOW URINE. PT ON BEDREST. SAFETY PRECAUTION IN PLACE. CALL LIGHT WITHIN REACH.
[2017-08-26 08:00] VITALS: BP 131/79
[2017-08-26] MEDS: lamoTRIgine 25 MG TAB PO SCH (08:41)
[2017-08-26] MEDS: LABETALOL 100 MG TAB PO SCH (08:41)
[2017-08-26] MEDS: PANTOPRAZOLE 40 MG TABEC PO SCH (08:41)
[2017-08-26] MEDS: predniSONE 20 MG TAB PO SCH (08:42)
[2017-08-26] MEDS: ENOXAPARIN 30 MG/0.3 ML SYR SUBQ SCH (08:55)
--- NOTE | 2017-08-26 09:00 | NUR ---
GT IN PLACE. PATENT. 5 ML RESIDUAL NOTED. FLUSHING GOOD.
[2017-08-26] MEDS ORDERED: ROC2I IV (10:26)
[2017-08-26 12:00] VITALS: BP 130/79
--- NOTE | 2017-08-26 12:10 | NUR ---
CALLED NIGEL BEAVER AND NOTIFIED THAT PT HAS A DISCHARGE ORDER SPOKE WITH DRAKE AND PATIENT CAN GO TO ROOM 11B AND WANTED THE PATIENT TO BE THERE AFTER 3:30
--- NOTE | 2017-08-26 12:30 | NUR ---
ARRANGED TRANSPORT FROM [facility] WITH [facility] TIME IS 3:30
--- NOTE | 2017-08-26 15:22 | NUR ---
CALLED NIGEL BEAVER AND GAVE REPORT REGARDING PT TRANSFER, SPOKE WITH TG AMAYA, MADE AWARE OF ORDER FOR ANTIBIOTIC ROCEPHIN IV 1G DAILY FOR 9 DAYS. CALLED SON MARKY [phone] MADE AWARE OF PT DISCHARGE. VERBALIZED UNDERSTANDING. ROMERO CATHETER REMOVED. IV LINE ON LEFT FOREARM KEPT IN PLACE, FOR CONTINUE ANTIBIOTIC TREATMENT. EXPLAINED TO PT DISCHARGE ORDERS AND TEACHINGS. PT VERBALIZED UNDERSTANDING BUT REINFORCEMENT NEEDED. PT SIGNED DISCHARGE PAPERS. AWAITING [facility]. NO SOB NOTED, DENIES ANY PAIN OR DISCOMFORT AT THIS TIME.
--- NOTE | 2017-08-26 15:45 | NUR ---
PT KEPT CLEAN, DRY AND COMFORTABLE, NEEDS ATTENDED. [facility] STAFF CAME TO GLASS ENGRAVER PT. NO SOB NOTED. REPORT GIVEN. NO SIGNS AND SYMPTOMS OF ACUTE PAIN OR DISCOMFORT NOTED AT THIS TIME. PT DISCHARGED ON STABLE CONDITION.
== END 2017-08-26 16:00 | DRG 720 ==
LOC: MED 10:56 → MTU 16:15
PROVIDERS: ADMIT Family Medicine; ATTEND Family Medicine
PROC: 009U3ZX Drainage of Spinal Canal, Percutaneous Approach, Diagnostic (ICD-10-PCS; principal; 2017-08-21)
DX: A41.9 Sepsis, unspecified organism (principal); G93.40 Encephalopathy, unspecified; I11.0 Hypertensive heart disease with heart failure; I50.9 Heart failure, unspecified; G03.9 Meningitis, unspecified; E11.622 Type 2 diabetes mellitus with other skin ulcer; F03.90 Unspecified dementia, unspecified severity, without behavioral disturbance, psychotic disturbance, mood disturbance, and anxiety; R65.20 Severe sepsis without septic shock; G40.909 Epilepsy, unspecified, not intractable, without status epilepticus; K21.9 Gastro-esophageal reflux disease without esophagitis; M81.0 Age-related osteoporosis without current pathological fracture; E78.5 Hyperlipidemia, unspecified; J44.9 Chronic obstructive pulmonary disease, unspecified; L98.499 Non-pressure chronic ulcer of skin of other sites with unspecified severity; L08.9 Local infection of the skin and subcutaneous tissue, unspecified; L72.3 Sebaceous cyst; Z93.1 Gastrostomy status; Z79.82 Long term (current) use of aspirin; Z79.899 Other long term (current) drug therapy; Z86.73 Personal history of transient ischemic attack (TIA), and cerebral infarction without residual deficits; Z79.84 Long term (current) use of oral hypoglycemic drugs; Z79.4 Long term (current) use of insulin; Z87.01 Personal history of pneumonia (recurrent)
CPT/HCPCS: 36415; 36600; 62270; 70450; 71010; 80048; 80053; 80202; 81001; 82140; 82803; 82948; 83036; 83605; 83880; 84484; 85025; 85610; 85730; 87040; 87070; 87086; 87205; 92610; 93005; 96365; 99291; J0696; J1630; J1650; J1815; J2543; J3370; J3480; J7030; J7060; J7512; Q0092

== ENCOUNTER 2017-09-27 21:03 | Inpatient (IN) | payer MEDICAID, MEDICARE ==
[~2017-09-27] VITALS: Ht 165.1 cm; Wt 54.0 kg
[~2017-09-27 21:03] MED LIST changes: +ROC2I IV; -VANC1PLA7 IV
[2017-09-27 21:18] VITALS: BP 105/78
--- NOTE | 2017-09-27 21:31 | NUR ---
PT XENIA GARCIA. TAKEN TO BED 12
[2017-09-27] MEDS ORDERED: NACL 0.9% 1,000 ML IV SCH (21:36)
--- NOTE | 2017-09-27 21:40 | NUR ---
67Y F GILStella FROM [facility] FOR GEN WEAKNESS X 1 DAY. EMS STATES PT RESPONDS TO PAINFUL AND VERBAL STIMULI. PT CURRENTLY RESPONDS TO COMMAND BY NODDING HEAD FOR YES AND NO. EMS STATES PT O2SAT WAS 89% ON RA SO THEY PLACED HER ON 4L NC. PT CURRENTLY O2SAT 94% RA, HX OF COPD.
[2017-09-27 22:44] LABS: HEMOGLOBIN 15.8 g/dL (12.0-16.0); MEAN CORPUSCULAR HEMOGLOBIN 26 pg (27-31); MEAN CORPUSCULAR HGB CONC 31 g/dL (33-37); MEAN CORPUSCULAR VOLUME 85 fL (80-94); PLATELET COUNT (AUTO) 206 K/uL (140-450); RED BLOOD CELL COUNT(AUTO) 6.02 MIL/uL (4.20-5.40); RED CELL DISTRIBUTION WIDTH 17.1 % (11.6-13.7)
[2017-09-27 22:50] LABS: PROTHROMBIN TIME 11.4 secs (10.8-13.4)
[2017-09-27 23:13] LABS: HEMATOCRIT 47.4 % (36-48)
[2017-09-27 23:14] LABS: EOSINOPHILS % (MANUAL) 2 % (0-4); LYMPHOCYTES % (MANUAL) 26 % (20-46); MONOCYTES % (MANUAL) 7 % (5-12)
[2017-09-27 23:23] LABS: APPEARANCE,URINE CLOUDY (CLEAR); BILIRUBIN,URINE 1+ (NEGATIVE); BLOOD, URINE 2+ (NEGATIVE); COLOR,URINE BROWN (YELLOW); LEUKOCYTE ESTERASE ,URINE 3+ (NEGATIVE); NITRITE, URINE NEGATIVE (NEGATIVE); PH,URINE 5.5 (5.0-9.0); UGLUCOSE NEGATIVE (NEGATIVE)
--- NOTE | 2017-09-27 23:26 | NUR ---
PT LEAVING TO CT VIA [facility] ACCOMPANIED BY LOLLY AUGUSTIN
--- NOTE | 2017-09-27 23:44 | NUR ---
INFLUENZA SWAB COMPLETED
--- NOTE | 2017-09-27 23:46 | NUR ---
PT RETURN FROM CT
[2017-09-28 00:04] LABS: RBC,URINE 11-20 (MOD) /HPF (0-5); WBC,URINE TOO MANY TO COUNT /HPF (0-5)
[2017-09-28] MEDS ORDERED: LEVOFLOXACIN 500 MG/D5W PREMIX 100 ML IV ONE (00:20)
[2017-09-28 00:50] LABS: ALBUMIN 3.3 g/dL (3.4-5.0); ANION GAP 19.5 (8-16); CARBON DIOXIDE 24.2 mmol/L (21-32); CREATININE 2.1 mg/dL (0.6-1.3); POTASSIUM 4.7 mmol/L (3.5-5.1); TOTAL BILIRUBIN 0.5 mg/dL (0.0-1.0)
[2017-09-28] MEDS ORDERED: NACL 0.9% 750 ML IV ONE (00:55)
[2017-09-28] MEDS ORDERED: PIPERACILLIN/TAZOBACTAM 3.375 GM in DEXTROSE 5% 50 ML IV ONE (00:55)
[2017-09-28] MEDS ORDERED: PIPERACILLIN/TAZOBACTAM 3.375 GM VIAL IV ONE ×2 (01:19→05:02)
--- NOTE | 2017-09-28 01:50 | NUR ---
Patient will be admitted to care of DR ORLANDO. Admited to TELE 113. Will go to room 113. Belongings list completed. Report to KENN.
[2017-09-28 02:00] VITALS: BP 110/82
--- NOTE | 2017-09-28 02:10 | NUR ---
ADMITTED PATIENT TO THE TELE UNIT, PATIENT AWAKE ALERT, APHASIC, NO S/S OF DISTRESS NOTED, RESPIRATION EVEN AND UNLABORED, ON NC 2L, TELE MONITOR IS PLACED ON PATIENT. IV PATENT AND INTACT, CALL LIGHT WITHIN REACH, SAFETY MEASURE ENSURED, WILL CONTINUE TO MONITOR.
--- NOTE | 2017-09-28 03:11 | NUR ---
PATIENT REFUSED TELE MONITOR, TIRED TO PUT THE TELE MONITOR BACK ON PATIENT, BUT PATIENT KEEP PULLING THE TELE LEADS OFF, MADE DR. ORLANDO AWARE, DR. ORLANDO SAID," IT'S OKAY, YOU CAN TRY LATER, AND START IV 1/2NS IV FLUIDS AT 150ML/HR, ZOSYN 3.375G, IV, Q6H, LEVAQUIN 500MG IV DAILY, DIET CCHO 60G, AND BLOOD GLUCOSE MONITORING ACHS WITH HUMALOG SLIDING SCALE." ORDERS READ BACK, DR. ORLANDO CONFIRMED.
[2017-09-28] MEDS ORDERED: LEVOFLOXACIN 500 MG/D5W PREMIX 100 ML IV SCH (03:40)
[2017-09-28] MEDS: NACL 0.45% 1,000 ML IV SCH ×4 (04:07→23:16)
[2017-09-28] MEDS ORDERED: PIPERACILLIN/TAZOBACTAM 2.25 GM VIAL IV ONE (05:09)
--- NOTE | 2017-09-28 05:23 | NUR ---
TALKED WITH PHARMACIST SHELDON, HE CHANGED THE DOSE OF ZOSYN TO 2.25G AND LEVAQUIN 250MG DUE TO BUN 68 AND CREATININE 2.1.
[2017-09-28] MEDS: PIPER/TAZO 2.25GM/D5W PREMIX 50 ML IV SCH ×4 (05:28→23:16)
[2017-09-28] MEDS: BLOOD GLUCOSE MONITORING 1 DEV DEV FS SCH ×4 (06:43→20:52)
--- NOTE | 2017-09-28 07:04 | NUR ---
PATIENT IS SLEEPING, EASY TO AROUSE, NO S/S OF DISTRESS NOTED, WILL CONTINUE TO MONITOR.
--- NOTE | 2017-09-28 07:34 | NUR ---
ENDORSED PLAN OF CARE TO DAY SHIFT RN, PATIENT IS SLEEPING, PATIENT IS IN STABLE CONDITION, RESPIRATION EVEN AND UNLABORED.
--- NOTE | 2017-09-28 07:35 | NUR ---
RECEIVED REPORT AT BEDSIDE. PT IS A FREQUENT FLYER. PT IS AWAKE BUT CONFUSED. ANSWERS SIMPLE QUESTIONS WITH NODDING. INTRODUCED MYSELF AND UPDATED THE BOARD. SHE IS AOX1. HER TELE MONITOR LEADS ARE OFF. READMINISTERED THE MONITOR LEADS. PT TAKES THEM OFF, INCLUDING HER GOWN. PT TOOK OFF THE NC. IV ON R FA 22G, 1/2 NS INFUSING AT 150ML. SPOKE TO DR. ORLANDO, ABOUT HER CHF. PER MD, OK TO KEEP HER FLUIDS AT 150ML TODAY AND TOMORROW, HE WILL REDUCE. PT ALSO HAS A GTUBE, BUT SHE EATS AND TAKES HER MEDS. PT'S SKIN IS INTACT. WILL CONTINUE TO MONITOR PT.
[2017-09-28 08:00] VITALS: BP 105/70
--- NOTE | 2017-09-28 08:46 | NUR ---
PATIENT HAS BEEN SCREENED AND CATEGORIZED HIGH NUTRITION RISK. PATIENT WILL BE SEEN WITHIN 1-2 DAYS OF ADMISSION. 09/28/17-09/29/[address]
[2017-09-28] MEDS ORDERED: PANTOPRAZOLE 40 MG TABEC PO SCH (09:00)
[2017-09-28] MEDS: lamoTRIgine 25 MG TAB PO SCH ×2 (09:14→20:52)
--- NOTE | 2017-09-28 10:40 | NUR ---
PT PULLED OUT IV. WILL TRY TO RESTART. WILL CONTINUE TO MONITOR PT.
--- NOTE | 2017-09-28 11:51 | NUR ---
MULTIPLE ATTEMPTS BY CHARGE NURSE TO START A NEW IV ACCESS. WILL GIVE HER A REST AND TRY AGAIN LATER.
[2017-09-28 12:00] VITALS: BP 106/66
[2017-09-28] MEDS: INSULIN LISPRO SLIDING SCALE 100 UNITS/ML VIAL SUBQ PRN (12:33)
--- NOTE | 2017-09-28 12:48 | NUR ---
UNABLE TO GIVE ZOSYN. NO IV ACCESS. WILL AWAIT AFTER LUNCH AND HAVE CHARGE NURSE TRY AGAIN. LUNCH IS HERE. CHIEF DEPUTY SHERIFF WILL TRY AND FEED HER. WILL CONTINUE TO MONITOR PT.
--- NOTE | 2017-09-28 14:43 | NUR ---
PT RESTING COMFORTABLY. CHARGE NURSE WILL TRY AGAIN AND START AN IV ACCESS.
--- NOTE | 2017-09-28 15:17 | NUR ---
CHARGE NURSE STARTED AN IV ON L FA 24G. 1/2 NS INFUSING ONCE AGAIN. PT TOLERATED WELL. WILL CONTINUE TO MONITOR PT.
--- NOTE | 2017-09-28 15:56 | NUR ---
PT RESTING COMFORTABLY. NO SIGNS OF DISTRESS. WILL CONTINUE TO MONITOR PT.
[2017-09-28 16:00] VITALS: BP 102/75
--- NOTE | 2017-09-28 17:32 | NUR ---
ADMINISTERED ZOSYN. PT TOLERATING WELL. PT SLEEPING SOUNDLY. NO SIGNS OF DISTRESS. FLACC-0. WILL CONTINUE TO MONITOR PT.
--- NOTE | 2017-09-28 19:19 | NUR ---
ENDORSED PT TO THE BIOFUELS RESEARCH SCIENTIST NURSE AT BEDSIDE FOR CONTINUITY OF CARE. PT IN STABLE CONDITION.
--- NOTE | 2017-09-28 19:25 | NUR ---
RECEIVED REPORT FROM DAY SHIFT RN, PATIENT IS EATING DINNER IN BED, AWAKE ALERT ORIENTED X2, NO S/S OF DISTRESS NOTED, RESPIRATION EVEN AND UNLABORED, IV PATENT AND INTACT, INFUSING 1/2NS AT 150ML/HR, CALL LIGHT WITHIN REACH, SAFETY MEASURE ENSURED, WILL CONTINUE TO MONITOR.
[2017-09-28 19:57] VITALS: BP 101/59
[2017-09-28] MEDS: LEVOFLOXACIN 250 MG/D5 PREMIX 50 ML IV SCH (20:53)
--- NOTE | 2017-09-28 21:02 | NUR ---
DUE MEDICATION GIVEN, PATIENT TOLERATED WELL. NO S/S OF DISTRESS NOTED, RESPIRATION EVEN AND UNLABORED, CALL LIGHT WITHIN REACH, SAFETY MEASURE ENSURED, WILL CONTINUE TO MONITOR.
--- NOTE | 2017-09-28 23:19 | NUR ---
DUE ZOSYN STARTED, PATIENT TOLERATED WELL, NO S/S OF DISTRESS NOTED, RESPIRATION EVEN AND UNLABORED, CALL LIGHT WITHIN REACH, SAFETY MEASURE ENSURED, WILL CONTINUE TO MONITOR.
[2017-09-29] VITALS: BP 107/72
--- NOTE | 2017-09-29 02:12 | NUR ---
NO CHANGE IN CONDITION, PATIENT SLEEPING, RESPIRATION EVEN AND UNLABORED, NO S/S OF DISTRESS NOTED, CALL LIGHT WITHIN REACH, SAFETY MEASURE ENSURED, WILL CONTINUE TO MONITOR.
--- NOTE | 2017-09-29 02:33 | NUR ---
PATIENT KEEP PULLING HER TELE LEADS, TRIED TO PUT THE TELE MONITOR BACK ON HER, PATIENT BECAME AGITATED AND DID NOT LET ME TO PUT IT ON, WILL TRY TO PUT IT BACK ON LATER.
[2017-09-29 04:00] VITALS: BP 127/75
--- NOTE | 2017-09-29 04:00 | NUR ---
PATIENT WAS SLEEPING, EASY TO AROUSE, VITAL SIGNS STABLE, NO S/S OF DISTRESS NOTED, RESPIRATION EVEN AND UNLABORED, CALL LIGHT WITHIN REACH, SAFETY MEASURE ENSURED, WILL CONTINUE TO MONITOR.
[2017-09-29] MEDS: PIPER/TAZO 2.25GM/D5W PREMIX 50 ML IV SCH ×4 (05:40→23:26)
[2017-09-29] MEDS: PANTOPRAZOLE 40 MG TABEC PO SCH (05:40)
[2017-09-29] MEDS: NACL 0.45% 1,000 ML IV SCH ×3 (05:41→22:43)
--- NOTE | 2017-09-29 05:44 | NUR ---
DUE MEDICATION GIVEN, PATIENT TOLERATED WELL. NO S/S OF DISTRESS NOTED, RESPIRATION EVEN AND UNLABORED, CALL LIGHT WITHIN REACH, SAFETY MEASURE ENSURED, WILL CONTINUE TO MONITOR.
--- NOTE | 2017-09-29 05:56 | NUR ---
BS 64, NO S/S OF DISTRESS NOTED, NO CHANGE OF CONSCIOUSNESS, PATIENT DRANK 2 BOXES OF APPLE JUICE, WILL CHECK THE BLOOD SUGAR IN 15MINS.
--- NOTE | 2017-09-29 06:23 | NUR ---
BS 85, PATIENT RESTING IN BED, NO S/S OF DISTRESS NOTED, SAFETY MEASURE ENSURED, WILL CONTINUE TO MONITOR.
--- NOTE | 2017-09-29 07:14 | NUR ---
ENDORSED PLAN OF CARE TO DAY SHIFT RN, PATIENT RESTING IN BED, NO S/S OF DISTRESS, RESPIRATION EVEN AND UNLABORED, PATIENT IN STABLE CONDITION.
--- NOTE | 2017-09-29 07:15 | NUR ---
RECEIVED REPORT FROM SLITTER SCORER CUT OFF OPERATOR NURSE, KENN, AT BEDSIDE FOR CONTINUITY OF CARE. PATIENT IS AWAKE ALERT ORIENTED X2, NO S/S OF DISTRESS NOTED. PATIENT ON ROOM AIR, RESPIRATION EVEN AND UNLABORED, L AC IV, PATENT AND INTACT, INFUSING 1/2NS AT 150ML/HR, CALL LIGHT WITHIN REACH, SAFETY MEASURE ENSURED, WILL CONTINUE TO MONITOR.
[2017-09-29] MEDS: BLOOD GLUCOSE MONITORING 1 DEV DEV FS SCH ×4 (07:27→20:35)
[2017-09-29 07:34] LABS: HEMATOCRIT 41.9 % (36-48); HEMOGLOBIN 13.3 g/dL (12.0-16.0); MEAN CORPUSCULAR HEMOGLOBIN 27 pg (27-31); MEAN CORPUSCULAR HGB CONC 32 g/dL (33-37); MEAN CORPUSCULAR VOLUME 85 fL (80-94); PLATELET COUNT (AUTO) 183 K/uL (140-450); RED BLOOD CELL COUNT(AUTO) 4.96 MIL/uL (4.20-5.40); RED CELL DISTRIBUTION WIDTH 16.6 % (11.6-13.7); WHITE BLOOD COUNT (AUTO) 10.3 K/uL (4.8-10.8)
[2017-09-29 08:00] VITALS: BP 117/82
[2017-09-29 09:06] LABS: CARBON DIOXIDE 21.7 mmol/L (21-32); CREATININE 1.4 mg/dL (0.6-1.3); POTASSIUM 3.7 mmol/L (3.5-5.1)
[2017-09-29 09:12] LABS: TOTAL BILIRUBIN 0.8 mg/dL (0.0-1.0)
[2017-09-29 09:19] LABS: EOSINOPHILS % (MANUAL) 1 % (0-4); LYMPHOCYTES % (MANUAL) 22 % (20-46); METAMYELOCYTES % 3 % (0-0); MONOCYTES % (MANUAL) 15 % (5-12)
[2017-09-29] MEDS: lamoTRIgine 25 MG TAB PO SCH ×2 (09:51→20:48)
--- NOTE | 2017-09-29 09:51 | NUR ---
ADMINISTERED MORNING MEDICATION. PATIENT TOLERATED IT WELL. NO SIGNS OF DISTRESS OR SOB NOTED, PATIENT DENIES PAIN, FLACC-0. SAFETY PRECAUTIONS IN PLACE, BED IN LOWEST POSITION, BED ALARM ON, CALL LIGHT WITHIN REACH. WILL CONTINUE TO MONITOR PATIENT.
[2017-09-29 12:00] VITALS: BP 131/85
--- NOTE | 2017-09-29 12:19 | NUR ---
09/29/17 RD INITIAL ASSESSMENT COMPLETED PLEASE REFER TO NUTRITION ASSESSMENT UNDER CARE ACTIVITY FOR ESTIMATED NUTRITIONAL NEEDS. RD RECOMMENDATIONS: 1. CONTINUES ON MECHANICAL SOFT, 60 GM CCHO DIET TOLERATED. 2. RDN TO PROVIDE DIET HEALTH SHAKES WITH ALL MEALS TO HELP MEET ESTIMATED NEEDS. DIET HEALTH SHAKE WITH EACH MEALS TID WILL PROVIDE A TOTAL OF 600 KCAL AND 21 GM PROTEIN. 3. IF PO INTAKES DO NOT IMPROVE TO >50% AT ALL MEALS, CONSIDER INITIATING NUTRITION SUPPORT. 4. CONSULT RDN PRN. 5. RD WILL F/U 2-3 DAYS; HIGH RISK. HARINDER BRAND, , RDN
--- NOTE | 2017-09-29 12:45 | NUR ---
SUBMARINE ADVISORY TEAM WATCH OFFICER FEEDING LUNCH TO PATIENT. NO SIGNS OF DISTRESS OR SOB NOTED, FLACC-0. SAFETY, SEIZURE, AND ISOLATION PRECAUTION IN PLACE. BED ON LOWEST SETTING, CALL LIGHT WITHIN REACH. WILL CONTINUE TO MONITOR PATIENT.
--- NOTE | 2017-09-29 14:35 | NUR ---
PATIENT IS SLEEPING. NO SIGNS OF DISTRESS OR SOB NOTED, FLACC-0. SAFETY, SEIZURE, AND ISOLATION PRECAUTION IN PLACE. BED ON LOWEST SETTING, CALL LIGHT WITHIN REACH. WILL CONTINUE TO MONITOR PATIENT.
[2017-09-29 16:00] VITALS: BP 118/65
--- NOTE | 2017-09-29 17:10 | NUR ---
BLOOD SUGAR 69, ORANGE JUICE AND APPLE JUICE GIVEN. REASSESSEMENT OF BLOOD SUGAR WAS 78. PATIENT RESTING IN BED, NO SIGNS OF DISTRESS OR SOB NOTED, FLACC-0. SAFETY AND SEIZURE PRECAUTION IN PLACE, BED ON LOWEST SETTING, CALL LIGHT WITHIN REACH. WILL CONTINUE TO MONITOR PATIENT.
--- NOTE | 2017-09-29 19:10 | NUR ---
REPORT GIVEN TO PIPE STEM SAWYER RN AT BEDSIDE FOR CONTINUITY OF CARE. PATIENT IN STABLE CONDITION.
--- NOTE | 2017-09-29 19:40 | NUR ---
PATIENT IS CURRENTLY RESTING IN BED AWAKE APHASIC MUMBLES AT TIMES. PATIENT CURRENTLY CLEAN AND DRY. CONTINUES TO PULL OFF AND REMOVE HER TELEMONITOR PATIENT UNABLE TO UNDERSTAND THE IMPORTANCE OF KEEPING THE TELEMONITORING IN PLACE AND PATIENT IS ALSO REMOVING HER GOWN AND ATTEMPTING TO PULL HER IV LINE AND GTUBE.I PUT THE PATIENT BACK ON THE TELEMONITOR AND APPLIED MITTENS TO BOTH HANDS TO PREVENT PATIENT FROM DISLODGING LINES AND TUBES AND TELEMONITOR.PATIENT TURNED AND REPOSITIONED ABD BINDER WILL BE APPLIED TO ABD AREA TO PROTECT GTUBE.SAFETY AND FALL PRECAUTIONS IMPLEMENTED CALL LIGHT WITHIN REACH BED ALARM ON.
[2017-09-29 20:00] VITALS: BP 108/68
[2017-09-29] MEDS: LEVOFLOXACIN 250 MG/D5 PREMIX 50 ML IV SCH (20:28)
[2017-09-29] MEDS: INSULIN LISPRO SLIDING SCALE 100 UNITS/ML VIAL SUBQ PRN (20:51)
--- NOTE | 2017-09-29 21:02 | NUR ---
Patient's Plan of Care was discussed and reviewed with INTEGRATION SOLUTION ARCHITECT:TOM VELEZ
--- NOTE | 2017-09-29 21:20 | NUR ---
PATIENT IS CURRENTLY STABLE RESTING IN BED NEEDS MET PATIENT ENDORSED TO TRIPP QUIJANO.
--- NOTE | 2017-09-29 21:21 | NUR ---
RECEIVED REPORT FROM TOM AMAYA. PATIENT A&OX1. PATIENT RESTING IN BED. FLACC 0. IV SITE PATENT AND INTACT. TELE BOX IN PLACE. SAFETY MEASURES ENSURED. CALL LIGHT WITHIN REACH. WILL CONTINUE TO MONITOR.
[2017-09-30] VITALS: BP 125/82
[2017-09-30] MEDS: NACL 0.45% 1,000 ML IV SCH (02:38)
[2017-09-30 04:00] VITALS: BP 128/82
[2017-09-30] MEDS: PANTOPRAZOLE 40 MG TABEC PO SCH (05:35)
[2017-09-30] MEDS: PIPER/TAZO 2.25GM/D5W PREMIX 50 ML IV SCH ×3 (05:36→17:05)
[2017-09-30] MEDS: BLOOD GLUCOSE MONITORING 1 DEV DEV FS SCH ×4 (06:45→21:26)
--- NOTE | 2017-09-30 07:15 | NUR ---
ENDORSED PLAN OF CARE TO AM RN. PATIENT IN STABLE CONDITION.
--- NOTE | 2017-09-30 07:16 | NUR ---
RECEIVED REPORT FROM ROCKET TEST FIRE WORKER NURSE AT BEDSIDE FOR CONTINUITY OF CARE. PATIENT IS SLEEPING, NO S/S OF DISTRESS NOTED, FLACC-0. PATIENT ON ROOM AIR, RESPIRATION EVEN AND UNLABORED, L AC IV, PATENT AND INTACT, INFUSING 1/2 NS AT 150ML/HR, CALL LIGHT WITHIN REACH, SAFETY AND ISOLATION PRECAUTION MEASURES IN PLACE, CALL LIGHT WITHIN REACH. WILL CONTINUE TO MONITOR.
[2017-09-30 07:23] LABS: ANION GAP 14.1 (8-16); CARBON DIOXIDE 26.2 mmol/L (21-32); CREATININE 1.2 mg/dL (0.6-1.3); POTASSIUM 3.3 mmol/L (3.5-5.1)
[2017-09-30 07:31] LABS: HEMATOCRIT 40.8 % (36-48); MEAN CORPUSCULAR HEMOGLOBIN 27 pg (27-31); MEAN CORPUSCULAR HGB CONC 32 g/dL (33-37); MEAN CORPUSCULAR VOLUME 84 fL (80-94); PLATELET COUNT (AUTO) 231 K/uL (140-450); RED BLOOD CELL COUNT(AUTO) 4.84 MIL/uL (4.20-5.40); WHITE BLOOD COUNT (AUTO) 11.5 K/uL (4.8-10.8)
[2017-09-30 08:00] VITALS: BP 119/59
[2017-09-30] MEDS ORDERED: CHLORHEXADINE GLUC 2% CLOTH TP SCH (09:00)
[2017-09-30 09:01] LABS: BASOPHILS % (MANUAL) 0 % (0-2); EOSINOPHILS % (MANUAL) 1 % (0-4); LYMPHOCYTES % (MANUAL) 15 % (20-46); MONOCYTES % (MANUAL) 11 % (5-12)
[2017-09-30] MEDS: lamoTRIgine 25 MG TAB PO SCH ×2 (09:28→21:08)
[2017-09-30] MEDS: CHLORHEXADINE GLUC 2% CLOTH TP SCH (09:30)
[2017-09-30] MEDS: MUPIROCIN 2% OINT 22 GM TUBE TP SCH (09:30)
--- NOTE | 2017-09-30 09:34 | NUR ---
DR. ORLANDO IN TO SEE THE PATIENT. WILL AWAIT NEW ORDERS. ADMINISTERED MORNING MEDICATIONS. PATIENT TOLERATED THEM WELL. SAFETY AND ISOLATION PRECAUTIONS IN PLACE, CALL LIGHT WITHIN REACH. BED IN LOWEST SETTING, WILL CONTINUE TO MONITOR PATIENT.
[2017-09-30] MEDS ORDERED: POTASSIUM CHLORIDE 20% 40 MEQ/15 ML UDC GT SCH (10:00)
[2017-09-30] MEDS: POTASSIUM CHL 20 MEQ/D5-1/2NS 1,000 ML IV SCH ×2 (10:28→19:30)
[2017-09-30 12:00] VITALS: BP 121/57
--- NOTE | 2017-09-30 12:45 | NUR ---
FERMENTATION OPERATOR IS FEEDING PATIENT LUNCH. NO SIGNS OR SYMPTOMS OF DISTRESS NOTED. FLACC-0. SAFETY AND ISOLATION PRECAUTIONS IN PLACE, CALL LIGHT WITHIN REACH. WILL CONTINUE TO MONITOR PATIENT.
--- NOTE | 2017-09-30 13:15 | NUR ---
IV INFILTRATED, IV REMOVED, CANNULA INTACT. NEW IV ON RIGHT FORE ARM #24 G, INTACT, ASYMPTOMATIC, AND PATENT. PATIENT TOLERATED IT WELL. NO SIGNS OF DISTRESS NOTED. FLACC-0. SAFETY AND ISOLATION PRECAUTION IN PLACE. CALL LIGHT WITHIN REACH. WILL CONTINUE TO MONITOR PATIENT.
--- NOTE | 2017-09-30 15:30 | NUR ---
PATIENT RESTING, NO SIGNS OF DISTRESS NOTED. PATIENT DENIES PAIN. FLACC-0. SAFETY AND ISOLATION PRECAUTION IN PLACE, CALL LIGHT WITHIN REACH, WILL CONTINUE TO MONITOR PATIENT.
[2017-09-30 16:00] VITALS: BP 119/77
[2017-09-30] MEDS: INSULIN LISPRO SLIDING SCALE 100 UNITS/ML VIAL SUBQ PRN (17:14)
--- NOTE | 2017-09-30 17:14 | NUR ---
BLOOD SUGAR 281. INSULIN COVERAGE GIVEN. PATIENT TOLERATED IT WELL. NO SIGNS OF DISTRESS NOTED. FLACC-0. SAFETY AND ISOLATION PRECAUTION IN PLACE. CALL LIGHT WITHIN REACH. WILL CONTINUE TO MONITOR PATIENT.
[2017-09-30] MEDS ORDERED: LORazepam 2 MG/ML VIAL IM/IVP SCH (18:35)
--- NOTE | 2017-09-30 18:44 | NUR ---
PATIENT ATTEMPTING TO GET OUT OF BED. DR. ORLANDO WAS CALLED. HE ORDERED STAT ONE TIME ORDER OF ACTIVAN 0.5 MG IVP. ADMINISTERED ORDERED. SAFETY AND ISOLATION PRECAUTION IN PLACE. CALL LIGHT WITHIN REACH. WILL REASSESS PATIENT AND CONTINUE TO MONITOR.
--- NOTE | 2017-09-30 19:00 | NUR ---
PATIENT RESTING COMFORTABLY, NO SIGNS OF DISTRESS NOTED. FLACC-0. BP 117/80, HR 105. SAFETY AND ISOLATION PRECAUTION IN PLACE. CALL LIGHT WITHIN REACH. WILL CONTINUE TO MONITOR PATIENT.
--- NOTE | 2017-09-30 19:15 | NUR ---
REPORT GIVEN TO RHINOLOGIST RN AT BEDSIDE FOR CONTINUITY OF CARE. PATIENT IN STABLE CONDITION.
--- NOTE | 2017-09-30 19:16 | NUR ---
RECEIVED HANDOFF REPORT FROM AM RN. PATIENT A&OX1. FLACC 0. IV SITE PATENT AND INTACT. NO SIGNS OR SYMPTOMS OF ACUTE DISTRESS NOTED. SAFETY MEASURES ENSURED. CALL LIGHT WITHIN REACH. WILL CONTINUE TO MONITOR.
[2017-09-30 20:00] VITALS: BP 125/62
[2017-09-30] MEDS: LEVOFLOXACIN 250 MG/D5 PREMIX 50 ML IV SCH (21:08)
[2017-10-01] VITALS: BP 133/80
[2017-10-01] MEDS: PIPER/TAZO 2.25GM/D5W PREMIX 50 ML IV SCH ×2 (00:35→05:02)
[2017-10-01 04:00] VITALS: BP 115/80
[2017-10-01] MEDS: POTASSIUM CHL 20 MEQ/D5-1/2NS 1,000 ML IV SCH (05:30)
[2017-10-01] MEDS: BLOOD GLUCOSE MONITORING 1 DEV DEV FS SCH ×2 (06:40→11:30)
[2017-10-01] MEDS: PANTOPRAZOLE 40 MG TABEC PO SCH (06:40)
--- NOTE | 2017-10-01 07:34 | NUR ---
ENDORSED PLAN OF CARE TO AM RN. PATIENT IN STABLE CONDITION
--- NOTE | 2017-10-01 07:35 | NUR ---
RECEIVED REPORT FROM SUPPORT ASSISTANT NURSE, PT IS SLEEPING IN BED, BUT EASILY AWAKEN, A/OX1, APHASIC, UNABLE TO AMBULATE, IV IS ON THE LEFT WRIST, PATENT, INTACT, FLUSHING WELL, PT HAS G-TUBE IN PLACE NO S/S OF RESPIRATORY DISTRESS OR DISCOMFORT NOTED, DISCUSSED PLAN OF CARE WITH PT, PT UNABLE TO VERBALIZE UNDERSTANDING, SAFETY/FALL PRECAUTIONS ARE IN PLACE, CALL LIGHT IS WITHIN REACH, WILL CONTINUE TO MONITOR.
[2017-10-01 08:00] VITALS: BP 110/71
[2017-10-01] MEDS: lamoTRIgine 25 MG TAB PO SCH (09:00)
--- NOTE | 2017-10-01 09:32 | NUR ---
CALLED PHARMACY SPOKE TO JEAN, I LET HER KNOW I WAS CALLING TO ASK ABOUT THE PATIENT'S LAMICTAL DUE AT 0900, I LET HER KNOW THERE WAS NONE IN THE [facility] AND I HAD ALSO CHECKED THE PATIENT'S BIN AND CASSETTE. JEAN SAID SHE WOULD SEND SOMEONE TO REFILL IT.
[2017-10-01] MEDS: CHLORHEXADINE GLUC 2% CLOTH TP SCH (09:39)
[2017-10-01] MEDS: MUPIROCIN 2% OINT 22 GM TUBE TP SCH (09:39)
[2017-10-01 12:00] VITALS: BP 100/69
--- NOTE | 2017-10-01 12:19 | NUR ---
CM NOTE PATIENT TO BE PICKED UP VIA [facility] BY [facility] GOING TO [facility], [facility]. ETA 1400. GRAY SALCEDO MADE AWARE.
[2017-10-01] MEDS: INSULIN LISPRO SLIDING SCALE 100 UNITS/ML VIAL SUBQ PRN (12:42)
--- NOTE | 2017-10-01 13:05 | NUR ---
CALLED [facility] AT [phone], GAVE REPORT TO TRIPP ALVAREZ.
--- NOTE | 2017-10-01 13:08 | NUR ---
CALLED PATIENT'S SON (MARKY) AT [phone], I REACHED HIS VOICEMAIL, I LEFT A MESSAGE LETTING HIM KNOW THE PATIENT WAS GOING TO BE DISCHARGED BACK TO [facility] AND WOULD BE PICKED UP BY [facility] TODAY AROUND 1400. I LEFT A CALL BACK NUMBER IN CASE HE HAD ANY QUESTIONS.
[2017-10-01] MEDS ORDERED: ROC1PM IV (13:23)
--- NOTE | 2017-10-01 14:25 | NUR ---
[facility] HERE TO DIRECTOR OF EMPLOYEE DEVELOPMENT PATIENT, IV LEFT IN PLACE SO THAT IV ABX CAN BE CONTINUED AT [facility] ORDERED BY DR. ORLANDO.
[2017-10-01 23:05] LABS: POTASSIUM 5.2 mmol/L (3.5-5.1)
[2017-10-01 23:06] LABS: ANION GAP 17.4 (8-16); CARBON DIOXIDE 26.8 mmol/L (21-32); CREATININE 1.4 mg/dL (0.6-1.3)
== END 2017-10-01 14:25 | disposition home or self-care (01) | DRG 720 ==
LOC: MED 21:03 → MTU 09-28 01:16
PROVIDERS: ADMIT Family Medicine; ATTEND Family Medicine
DX: A41.51 Sepsis due to Escherichia coli [E. coli] (principal); G93.41 Metabolic encephalopathy; E87.0 Hyperosmolality and hypernatremia; I11.0 Hypertensive heart disease with heart failure; I50.9 Heart failure, unspecified; E87.8 Other disorders of electrolyte and fluid balance, not elsewhere classified; E11.9 Type 2 diabetes mellitus without complications; D64.9 Anemia, unspecified; F03.90 Unspecified dementia, unspecified severity, without behavioral disturbance, psychotic disturbance, mood disturbance, and anxiety; N39.0 Urinary tract infection, site not specified; N19 Unspecified kidney failure; Z93.1 Gastrostomy status; E86.0 Dehydration; K21.9 Gastro-esophageal reflux disease without esophagitis; G40.909 Epilepsy, unspecified, not intractable, without status epilepticus; R79.89 Other specified abnormal findings of blood chemistry; Z86.73 Personal history of transient ischemic attack (TIA), and cerebral infarction without residual deficits; Z79.899 Other long term (current) drug therapy; Z79.82 Long term (current) use of aspirin; Z79.84 Long term (current) use of oral hypoglycemic drugs
CPT/HCPCS: 36415; 70450; 71045; 80048; 80053; 81001; 82550; 82553; 82948; 83605; 83690; 83874; 83880; 84484; 85025; 85610; 85730; 87040; 87081; 87086; 87186; 87804; 93005; 96361; 96365; 96375; 99291; C1758; J0696; J1815; J1956; J2060; J2543; J7030; J7060; Q0092

== ENCOUNTER 2017-11-23 08:35 | Inpatient (IN) | payer MEDICAID, MEDICARE ==
[~2017-11-23] VITALS: Ht 167.6 cm; Wt 51.8 kg
--- NOTE | 2017-11-23 08:35 | NUR ---
PATIENT PRESENTS TO ED WITH s/p seizure >5 mins witnessed . PT STATES . DENIES N/V/D; SKIN IS PINK/WARM/DRY; AAOX4 WITH EVEN AND STEADY GAIT; LUNGS CLEAR BL; HR EVEN AND REGULAR; PT DENIES ANY FEVER, CP, SOB, OR COUGH AT THIS TIME; PATIENT STATES PAIN OF 0/10 AT THIS TIME; VSS; PATIENT POSITIONED FOR COMFORT; HOB ELEVATED; BEDRAILS UP X2; BED DOWN. ER MD MADE AWARE OF PT STATUS.
[2017-11-23 08:37] VITALS: BP 131/87
--- NOTE | 2017-11-23 08:39 | NUR ---
ER DR. MCDERMOTT AT BEDSIDE
[2017-11-23] MEDS ORDERED: NACL 0.9% 1,000 ML IV ONE ×2 (08:42→10:15)
--- NOTE | 2017-11-23 09:20 | NUR ---
PT TO CT VIA [facility]
--- NOTE | 2017-11-23 09:31 | NUR ---
RETURNED WITH PT FROM [facility]IA [facility]
[2017-11-23 09:51] LABS: ANION GAP 13.1 (8-16); BASOPHILS # (AUTO) 0.4 K/uL (0.00-0.22); BASOPHILS % (AUTO) 4.2 % (0.0-2.0); CARBON DIOXIDE 25.3 mmol/L (21-32); CREATININE 0.8 mg/dL (0.6-1.3); EOSINOPHILS # (AUTO) 0.2 K/uL (0-0.4); EOSINOPHILS % (AUTO) 1.9 % (0.0-4.0); HEMATOCRIT 44.6 % (36-48); LYMPHOCYTES # (AUTO) 2.2 K/uL (2.5-16.5); LYMPHOCYTES % (AUTO) 21.7 % (20.5-51.1); MEAN CORPUSCULAR HEMOGLOBIN 27 pg (27-31); MEAN CORPUSCULAR HGB CONC 31 g/dL (33-37); MEAN CORPUSCULAR VOLUME 86 fL (80-94); MONOCYTES # (AUTO) 1.1 K/uL (0.8-1.0); MONOCYTES % (AUTO) 10.6 % (1.7-9.3); NEUTROPHILS # (AUTO) 6.1 K/uL (1.8-7.7); NEUTROPHILS % (AUTO) 61.6 % (42.2-75.2); PLATELET COUNT (AUTO) 265 K/uL (140-450); POTASSIUM 4.4 mmol/L (3.5-5.1); RED BLOOD CELL COUNT(AUTO) 5.18 MIL/uL (4.20-5.40); RED CELL DISTRIBUTION WIDTH 14.2 % (11.6-13.7); WHITE BLOOD COUNT (AUTO) 10.1 K/uL (4.8-10.8)
[2017-11-23 09:53] LABS: PROTHROMBIN TIME 10.2 secs (10.8-13.4)
[2017-11-23 09:57] LABS: ALBUMIN 3.3 g/dL (3.4-5.0); TOTAL BILIRUBIN 0.3 mg/dL (0.0-1.0)
[2017-11-23] MEDS ORDERED: LEVOFLOXACIN 750 MG/D5W PREMIX 150 ML IV ONE ×2 (10:15→12:30)
--- NOTE | 2017-11-23 10:30 | NUR ---
ej not working-- notified
[2017-11-23 10:44] LABS: APPEARANCE,URINE CLOUDY (CLEAR)
[2017-11-23 10:45] LABS: BILIRUBIN,URINE NEGATIVE (NEGATIVE); COLOR,URINE YELLOW (YELLOW); UGLUCOSE NEGATIVE (NEGATIVE)
[2017-11-23 10:46] LABS: LEUKOCYTE ESTERASE ,URINE 3+ (NEGATIVE); NITRITE, URINE POSITIVE (NEGATIVE)
[2017-11-23 10:47] LABS: BLOOD, URINE 1+ (NEGATIVE); RBC,URINE 0-5 (RARE) /HPF (0-5); WBC,URINE >25 (MANY) /HPF (0-5)
[2017-11-23 10:48] LABS: YEAST,URINE Moderate /HPF (None Seen)
[2017-11-23] MEDS ORDERED: ACETAMINOPHEN 325 MG TAB PO PRN (11:15)
[2017-11-23] MEDS ORDERED: ONDANSETRON 4 MG/2 ML VIAL IVP PRN (11:15)
--- NOTE | 2017-11-23 11:25 | NUR ---
NO SEIZURE ACTIVITY NOTED OF YET---SIDE RAILS REMAIN PADDED FOR PRECAUTION----PT DISPO FOR ADMISSION TELE---
[2017-11-23] MEDS ORDERED: hydrOXYzine HCL 25 MG TAB GT SCH (11:30)
[2017-11-23 13:03] LABS: CHOL/HDL RATIO 3.1 (1-4.5); FREE T4 (FREE THYROXINE) 1.23 ng/dL (0.76-1.46); THYROID STIMULATING HORMONE 1.45 uIU/mL (0.34-3.74)
[2017-11-23 13:18] LABS: BARBITURATE, URINE NEG. ng/ml (NEG <=200); BENZODIAZEPINE, URINE NEG. ng/mL (NEG <=200); CANNABINOID, URINE NEG. ng/mL (NEG <=50); COCAINE, URINE NEG. ng/mL (NEG <=300); OPIATE, URINE NEG. ng/mL (NEG <=2000); PHENCYCLIDINE SCREEN,URINE NEG. ng/mL (NEG <=25)
[2017-11-23] MEDS ORDERED: predniSONE 10 MG TAB PO SCH (14:25)
--- NOTE | 2017-11-23 14:49 | NUR ---
Pt transferred to Tele via dom report given to Leyla ALMAGUER
--- NOTE | 2017-11-23 15:00 | NUR ---
PT ADMITTED TO UNIT. BEDSIDE REPORT GIVEN BY ER NURSE. PT IS AAOX2. PT ANSWERS QUESTIONS IN SINGLE WORDS BUT SELECTIVELY. INTRODUCED SELF AND UPDATED BOARD. VS: BP 115/72, HR 72, O2 SAT 97% ON RA, RR 18, TEMP 97.6F. SKIN INTACT WITH MULTIPLE HEALED SCARS. NO OPEN WOUNDS. PT WAS WEARING DIAPER HAD INCONTINENT URINE AND BM. CHANGED LINENS AND GOWN AND PLACED CHUX. SEIZURE PRECAUTIONS, FALL PRECAUTIONS AND ASPIRATION PRECAUTIONS IN PLACE. BED IN LOW POSITION, WHEELS LOCKED, CALL LIGHT WITHIN REACH. WILL CONTINUE TO MONITOR.
[2017-11-23] MEDS ORDERED: DEXTROSE 50% 50 ML SYR IVP PRN (15:05)
[2017-11-23 16:00] VITALS: BP 121/73
[2017-11-23] MEDS: BLOOD GLUCOSE MONITORING 1 DEV DEV FS SCH ×2 (16:30→21:21)
--- NOTE | 2017-11-23 17:20 | NUR ---
PAGED DR. ORLANDO. CLARIFIED ORDERS. MEDS CAN BE TAKEN PO AND PT CAN TOLERATE FOODS PO. NO G-TUBE MEDS ORDERED.
[2017-11-23] MEDS: FERROUS SULFATE 325 MG TABEC PO SCH (17:32)
[2017-11-23] MEDS: INSULIN LISPRO SLIDING SCALE 100 UNITS/ML VIAL SUBQ PRN ×2 (17:40→21:21)
--- NOTE | 2017-11-23 19:20 | NUR ---
RECEIVED PATIENT LYING ON BED WITH G-TUBE IN PLACE DRY AND INTACT. RECEIVED REPORT A0X1. PATIENT IN LOW BED POSITION, BED ALARM ON, PATIENT IS ON SEIZURES / ASPIRATION PRECAUTIONS. . NO S/S OF DISTRESS AT THIS TIME. FREQUENT MONITORING IMPLEMENTED. WILL CONTINUE TO MONITOR.
--- NOTE | 2017-11-23 19:25 | NUR ---
ENDORSED PT TO LAST SAWYER NURSE LUL AT BEDSIDE FOR CONTINUITY OF CARE. PT IN STABLE CONDITION.
--- NOTE | 2017-11-23 19:27 | NUR ---
PT IN BED, AWAKE. NO RESP DISTRESS NOTED. NO S/S OF PAIN OR DISCOMFORT. BRUISES TO LEFT UPPER ARM AND LEFT WRIST NOTED. SEIZURE, ASPIRATION AND FALL PRECAUTION IN PLACE. CALL LIGHT WITHIN REACH.
[2017-11-23] MEDS ORDERED: FLUTICASONE PROPIONATE 100 MCG/ACTUATION INH IH SCH (19:30)
[2017-11-23 20:00] VITALS: BP 130/90
--- NOTE | 2017-11-23 20:00 | NUR ---
PATIENT WAS TRYING TO REMOVE HER IV LINE, G-TUBE AND TELEMONITOR. SOFT HAND MITTENS APPLIED. NO S/S OF PAIN AND DISCOMFORT NOTED. WILL CONTINUE TO MONITOR.
--- NOTE | 2017-11-23 20:15 | NUR ---
PATIENT REMOVED SOFT HAND MITTENS AND PULLED OUT IV LINE TO RIGHT FOREARM, REMOVED TELEMONITOR . DEBRA ORLANDO .
--- NOTE | 2017-11-23 20:25 | NUR ---
DR. ORLANDO ORDERED SOFT WRIST RESTRAINT. ORDER NOTED .
[2017-11-23] MEDS ORDERED: FLUTICASONE PROPIONATE 220 MCG INH SCH (21:00)
[2017-11-23] MEDS ORDERED: FERROUS SULFATE 330 MG GT SCH (21:00)
[2017-11-23] MEDS ORDERED: amLODIPine 5 MG TAB PO SCH (21:00)
[2017-11-23] MEDS: lamoTRIgine 25 MG TAB PO SCH (21:21)
--- NOTE | 2017-11-23 21:21 | NUR ---
DUE MEDS GIVEN WITH APPLESAUCE. PT TOLERATED WELL. BS CHECKED 186. INSULIN HUMALOG GIVEN PER SLIDING SCALE.
--- NOTE | 2017-11-23 22:35 | NUR ---
PATIENT SEEN ASLEEP ON BED . PATIENT IS EASILY AROUSABLE . NO S/S OF ACUTE RESPIRATORY DISTRESS NOTED. WILL CONTINUE TO MONITOR.
[2017-11-24] VITALS: BP 137/88
--- NOTE | 2017-11-24 00:35 | NUR ---
SEEN PATIENT ASLEEP ON BED. FALL PRECAUTION IMPLEMENTED. NO S/S OF DISTRESS NOTED.
--- NOTE | 2017-11-24 01:30 | NUR ---
INSERTED IV TO RIGHT HAND #24G. GOOD FLUSH AND BLOOD RETURN. PT TOLERATED PROCEDURE WELL.
--- NOTE | 2017-11-24 02:45 | NUR ---
PATIENT SEEN ASLEEP ON BED. PATIENT EASILY AROUSABLE.BED IN LOW POSITION, BED ALARM ON. NO S/S DISTRESS NOTED THIS TIME.
[2017-11-24 04:00] VITALS: BP 130/82
--- NOTE | 2017-11-24 04:40 | NUR ---
SEEN PATIENT LYING ON BED ASLEEP. NO SEIZURE ACTIVITY NOTED. BED IN LOW POSITION,BED ALARM ON. PATIENT KEEP DRY AND COMFORTABLE. NO S/S DISTRESS NOTED AT THIS TIME.
[2017-11-24] MEDS: BLOOD GLUCOSE MONITORING 1 DEV DEV FS SCH ×4 (06:05→20:45)
[2017-11-24] MEDS: INSULIN LISPRO SLIDING SCALE 100 UNITS/ML VIAL SUBQ PRN ×3 (06:06→20:48)
--- NOTE | 2017-11-24 06:10 | NUR ---
BS CHECK 151 INSULIN HUMALOG GIVEN PER SLIDING SCALE. BED IN LOW POSITION, BED ALARM ON. WILL CONTINUE TO MONITOR.
[2017-11-24 06:22] LABS: HEMATOCRIT 43.5 % (36-48); HEMOGLOBIN 13.8 g/dL (12.0-16.0); MEAN CORPUSCULAR HEMOGLOBIN 27 pg (27-31); MEAN CORPUSCULAR HGB CONC 32 g/dL (33-37); MEAN CORPUSCULAR VOLUME 85 fL (80-94); PLATELET COUNT (AUTO) 357 K/uL (140-450); RED BLOOD CELL COUNT(AUTO) 5.14 MIL/uL (4.20-5.40); RED CELL DISTRIBUTION WIDTH 14.5 % (11.6-13.7); WHITE BLOOD COUNT (AUTO) 11.8 K/uL (4.8-10.8)
[2017-11-24] MEDS ORDERED: PANTOPRAZOLE 40 MG TABEC PO SCH (06:30)
[2017-11-24 06:56] LABS: CARBON DIOXIDE 22.8 mmol/L (21-32); CREATININE 0.8 mg/dL (0.6-1.3); POTASSIUM 3.8 mmol/L (3.5-5.1)
[2017-11-24 07:03] LABS: MAGNESIUM 1.9 mg/dL (1.8-2.4); PHOSPHORUS 2.9 mg/dL (2.5-4.9)
--- NOTE | 2017-11-24 07:20 | NUR ---
ENDORSED PT TO DAY SHIFT NURSE AT BEDSIDE FOR CONTINUITY OF CARE. PT IN STABLE CONDITION.
--- NOTE | 2017-11-24 07:30 | NUR ---
RECEIVED PT REPORT FROM AMMONIA NITRATE OPERATOR. PT IS AWAKE, ALERT, OX1. PT IS IN BED, BED ALARM ON, NO RESP DISTRESS NOTED. NO S/S OF PAIN OR DISCOMFORT. BRUISES NOTED TO LEFT UPPER ARM AND LEFT WRIST. NO SEIZURE AT THIS TIME. RESTRAINT IS ON THE LEFT HAND. CIRCULATION IS GOOD. CAP REFILL LESS THAN 3 SEC. IV NOTED TO THE LEFT WRIST, FLUSHED, PATENT AND INTACT. SEIZURE, ASPIRATION AND FALL PRECAUTION IN PLACE. CALL LIGHT WITHIN REACH.
[2017-11-24 07:43] LABS: BASOPHILS % (MANUAL) 1 % (0-2); EOSINOPHILS % (MANUAL) 1 % (0-4); LYMPHOCYTES % (MANUAL) 22 % (20-46); MONOCYTES % (MANUAL) 11 % (5-12)
[2017-11-24 08:00] VITALS: BP 102/77
[2017-11-24] MEDS ORDERED: metFORMIN 500 MG TAB PO SCH (08:00)
[2017-11-24] MEDS: FLUCONAZOLE 100 MG TAB PO SCH (08:52)
[2017-11-24] MEDS: ASCORBIC ACID 500 MG TAB PO SCH (08:55)
[2017-11-24] MEDS: lamoTRIgine 25 MG TAB PO SCH ×2 (08:55→20:38)
[2017-11-24] MEDS: FERROUS SULFATE 325 MG TABEC PO SCH ×2 (08:56→16:35)
[2017-11-24] MEDS: DOCUSATE 100 MG/10 ML UDC GT SCH (08:58)
[2017-11-24] MEDS: ASPIRIN 81 MG TAB.CHEW PO SCH (08:58)
[2017-11-24] MEDS: PANTOPRAZOLE 40 MG INJ VIAL IVP SCH (08:59)
[2017-11-24] MEDS: POTASSIUM CHL 20 MEQ/ 1/2 NS 1,000 ML IV SCH ×3 (08:59→21:40)
[2017-11-24] MEDS: LEVOFLOXACIN 500 MG/D5W PREMIX 100 ML IV SCH (08:59)
[2017-11-24] MEDS ORDERED: MONTELUKAST SODIUM 10 MG TAB PO SCH ×2 (09:00)
[2017-11-24] MEDS: LOSARTAN 50 MG TAB PO SCH (09:00)
[2017-11-24] MEDS ORDERED: MULTIVITAMIN 1 TAB PO SCH (09:00)
[2017-11-24] MEDS: amLODIPine 5 MG TAB PO SCH (09:00)
--- NOTE | 2017-11-24 09:00 | NUR ---
MEDS CRUSHED AND GIVEN WITH APPLE SAUCE. NO S/S OF DISTRESS. PT IS ON ROOM AIR.
[2017-11-24] MEDS ORDERED: metFORMIN 500 MG TAB ONE (09:45)
--- NOTE | 2017-11-24 10:40 | NUR ---
G TUBE ASPIRATED, 0ML RESIDUAL. FLUSHED WITH 30ML OF H2O, PT TOLERATED WELL.
[2017-11-24 12:00] VITALS: BP 113/84
--- NOTE | 2017-11-24 12:45 | NUR ---
PT REFUSED INSULIN INJECTION, PUSHED AWAY MY HAND AND STATED NO SHOT. EXPLAINED TO PT RISK AND BENEFITS, UNABLE TO COMPREHEND, STILL REFUSING. BLOOD SUGAR 183. Addendum: 11/24/17 at 1421 by Berto Vallecillo RN BLOOD SUGAR 186
--- NOTE | 2017-11-24 15:15 | NUR ---
CALLED RADIOLOGY FOR US ABD, THEY SAID WILL BE COMING SHORTLY.
[2017-11-24 16:00] VITALS: BP 110/78
--- NOTE | 2017-11-24 16:50 | NUR ---
PT BECOMES AGITATED DURING GLUCOSE CHECK. CLENCHED HER LEFT HAND AND USING HER RIGHT HAND TO PUSH MY HANDS AWAY. COULD NOT GET BLOOD GLUCOSE CHECK AT BEDSIDE AT THIS TIME.
--- NOTE | 2017-11-24 19:34 | NUR ---
ENDORSED PT TO SHAGGER. PT IS IN STABLE CONDITION.
--- NOTE | 2017-11-24 19:35 | NUR ---
RECEIVED REPORT FROM DAY NURSE JUSTINO RN. PT IN STABLE CONDITION. NO S/S OF DISTRESS NOTED. PT IS AAOX1. PT IS ON RA. IV TO L FA 22G, PATENT AND INTACT, INFUSING WELL. SKIN IS WARM AND DRY TO TOUCH, INTACT. G-TUBE IN PLACE, AREA CLEAN AND DRY. PT IS ON SOFT RESTRAINTS WITH ORDER IN PLACE. RR EVEN/UNLABORED. BOWEL SOUNDS PRESENT. INITIAL ASSESSMENT COMPLETED. PLAN OF CARE DISCUSSED WITH PT, PT NEEDS REINFORCEMENT. ALL SAFETY PRECAUTIONS MET, CALL LIGHT WITHIN REACH, WILL CONTINUE TO MONITOR.
[2017-11-24 20:00] VITALS: BP 116/68
--- NOTE | 2017-11-24 20:30 | NUR ---
PAGED DR. ORLANDO IN REGARDS TO RESTRAINT ORDERS
--- NOTE | 2017-11-24 20:38 | NUR ---
MEDICATION GIVEN WITH APPLESAUCE. PT TOLERATED WELL. WILL CONTINUE TO MONITOR
--- NOTE | 2017-11-24 20:40 | NUR ---
DR. ORLANDO SAID TO D/C RESTRAINTS AND ONLY USE MITTENS.
[2017-11-25] VITALS: BP 108/56
[2017-11-25 04:00] VITALS: BP 116/68
[2017-11-25] MEDS: POTASSIUM CHL 20 MEQ/ 1/2 NS 1,000 ML IV SCH ×3 (04:20→17:58)
--- NOTE | 2017-11-25 06:40 | NUR ---
PT REFUSED MORNING LABS
[2017-11-25] MEDS: BLOOD GLUCOSE MONITORING 1 DEV DEV FS SCH ×4 (06:41→21:00)
--- NOTE | 2017-11-25 06:52 | NUR ---
PATIENT HAS BEEN SCREENED AND CATEGORIZED LOW NUTRITION RISK. PATIENT WILL BE SEEN WITHIN 7 DAYS OF ADMISSION. 11/30/17 PATRIZIA BRAND MS, RDN Addendum: 11/25/17 at [address] PATIENT HAS BEEN SCREENED AND CATEGORIZED MODERATE NUTRITION RISK. PATIENT WILL BE SEEN WITHIN 3-5 DAYS OF ADMISSION. 11/26/17-11/28/17 PATRIZIA BRAND MS, RDN
--- NOTE | 2017-11-25 07:22 | NUR ---
REPORT GIVEN TO DAY SHIFT NURSE FOR CONTINUITY OF CARE, PT IN STABLE CONDITION
--- NOTE | 2017-11-25 07:22 | NUR ---
NOTIFIED DR. ORLANDO ABOUT US RESULTS
--- NOTE | 2017-11-25 07:30 | NUR ---
RECEIVED PT REPORT FROM ASSISTANT AUDITOR. PT IS AWAKE, ALERT, OX1. PT IS IN BED, BED ALARM ON, NO RESP DISTRESS NOTED. NO S/S OF PAIN OR DISCOMFORT. BRUISES NOTED TO LEFT UPPER ARM AND LEFT WRIST. NO SEIZURE AT THIS TIME. PT IS NOT ON RESTRAINT. IV NOTED TO THE LEFT FOREARM, FLUSHED, PATENT AND INTACT. G TUBE ASPIRATED, 1 ML RESIDUAL. SEIZURE, ASPIRATION AND FALL PRECAUTION IN PLACE. CALL LIGHT WITHIN REACH.
[2017-11-25 08:00] VITALS: BP 136/89
[2017-11-25] MEDS: FERROUS SULFATE 325 MG TABEC PO SCH ×2 (08:37→16:02)
[2017-11-25] MEDS: LEVOFLOXACIN 500 MG/D5W PREMIX 100 ML IV SCH (08:37)
[2017-11-25] MEDS: DOCUSATE 100 MG/10 ML UDC GT SCH (08:38)
[2017-11-25] MEDS: LOSARTAN 50 MG TAB PO SCH (08:39)
[2017-11-25] MEDS: PANTOPRAZOLE 40 MG INJ VIAL IVP SCH (08:39)
[2017-11-25] MEDS: amLODIPine 5 MG TAB PO SCH (08:40)
[2017-11-25] MEDS: FLUCONAZOLE 100 MG TAB PO SCH (08:40)
[2017-11-25] MEDS: ASCORBIC ACID 500 MG TAB PO SCH (08:40)
[2017-11-25] MEDS: ASPIRIN 81 MG TAB.CHEW PO SCH (08:41)
[2017-11-25] MEDS: lamoTRIgine 25 MG TAB PO SCH ×2 (08:41→20:55)
[2017-11-25] MEDS: BUDESONIDE 0.5 MG/2 ML NEBU INH SCH ×2 (09:00→19:16)
--- NOTE | 2017-11-25 09:00 | NUR ---
PATIENT AWAKE. TX GIVEN. TOLERATED TX. NO RESPIRATORY DISTRESS NOTED AT THIS TIME.
[2017-11-25] MEDS ORDERED: FLUCONAZOLE 100 MG TAB PO SCH (10:00)
[2017-11-25 10:13] LABS: BASOPHILS # (AUTO) 0.3 K/uL (0.00-0.22); BASOPHILS % (AUTO) 3.2 % (0.0-2.0); EOSINOPHILS # (AUTO) 0.2 K/uL (0-0.4); EOSINOPHILS % (AUTO) 2.5 % (0.0-4.0); HEMATOCRIT 42.3 % (36-48); HEMOGLOBIN 13.2 g/dL (12.0-16.0); LYMPHOCYTES # (AUTO) 1.9 K/uL (2.5-16.5); LYMPHOCYTES % (AUTO) 24.6 % (20.5-51.1); MEAN CORPUSCULAR HEMOGLOBIN 27 pg (27-31); MEAN CORPUSCULAR HGB CONC 31 g/dL (33-37); MEAN CORPUSCULAR VOLUME 85 fL (80-94); MONOCYTES # (AUTO) 1.1 K/uL (0.8-1.0); MONOCYTES % (AUTO) 13.9 % (1.7-9.3); NEUTROPHILS # (AUTO) 4.4 K/uL (1.8-7.7); NEUTROPHILS % (AUTO) 55.8 % (42.2-75.2); PLATELET COUNT (AUTO) 342 K/uL (140-450); RED BLOOD CELL COUNT(AUTO) 4.97 MIL/uL (4.20-5.40); RED CELL DISTRIBUTION WIDTH 14.6 % (11.6-13.7); WHITE BLOOD COUNT (AUTO) 7.9 K/uL (4.8-10.8)
[2017-11-25 10:27] LABS: ALBUMIN 3.1 g/dL (3.4-5.0); ANION GAP 11.5 (8-16); CARBON DIOXIDE 25.9 mmol/L (21-32); CREATININE 0.9 mg/dL (0.6-1.3); POTASSIUM 4.4 mmol/L (3.5-5.1); TOTAL BILIRUBIN 0.6 mg/dL (0.0-1.0)
--- NOTE | 2017-11-25 11:30 | NUR ---
BLOOD GLUCOSE CHECK DONE. BG 147. NO S/S OF ACUTE DISTRESS.
[2017-11-25 12:00] VITALS: BP 129/66
--- NOTE | 2017-11-25 12:30 | NUR ---
CHG WIPES APPLIED, BACTROBAN ADMINISTERED. PT TOLERATED FAIR. Addendum: 11/25/17 at 1325 by Berto Vallecillo RN CHUEDMUND CHANGED, PT WAS REPOSITIONED TO LEFT SIDE.
[2017-11-25] MEDS: MUPIROCIN 2% OINT 22 GM TUBE TP SCH (12:53)
[2017-11-25] MEDS: CHLORHEXADINE GLUC 2% CLOTH TP SCH (12:53)
--- NOTE | 2017-11-25 15:30 | NUR ---
CHANGED CHUX WITH STRUCTURAL DRAFTER, LINENS CHANGED, PT WAS CLEANED AND DRIED. NO S/S OF ACUTE DISTRESS.
[2017-11-25 16:00] VITALS: BP 129/78
[2017-11-25] MEDS: INSULIN LISPRO SLIDING SCALE 100 UNITS/ML VIAL SUBQ PRN (16:15)
--- NOTE | 2017-11-25 17:50 | NUR ---
CHANGED CHUX WITH CLINICAL DOCUMENTATION SPEC, LINENS CHANGED, PT WAS CLEANED AND DRIED. NO S/S OF ACUTE DISTRESS. REPOSITIONED PT. NO VOMITING TODAY. NO SEIZURE NOTED TODAY.
--- NOTE | 2017-11-25 19:24 | NUR ---
ENDORSED PT TO PAPER REELER. PT IS IN STABLE CONDITION.
[2017-11-25 20:00] VITALS: BP 118/81
[2017-11-26] VITALS: BP 110/78
[2017-11-26] MEDS: POTASSIUM CHL 20 MEQ/ 1/2 NS 1,000 ML IV SCH ×4 (01:12→20:25)
--- NOTE | 2017-11-26 02:08 | NUR ---
PT RESTING IN BED. NO S/S OF DISTRESS NOTED. WILL CONTINUE TO MONITOR
[2017-11-26 04:00] VITALS: BP 114/68
[2017-11-26] MEDS ORDERED: ALENDRONATE SODIUM 70 MG TAB PO SCH (06:00)
[2017-11-26] MEDS: BLOOD GLUCOSE MONITORING 1 DEV DEV FS SCH ×4 (06:38→20:26)
[2017-11-26 06:41] LABS: BASOPHILS # (AUTO) 0.2 K/uL (0.00-0.22); BASOPHILS % (AUTO) 3.1 % (0.0-2.0); EOSINOPHILS # (AUTO) 0.2 K/uL (0-0.4); EOSINOPHILS % (AUTO) 2.8 % (0.0-4.0); HEMATOCRIT 39.3 % (36-48); HEMOGLOBIN 12.8 g/dL (12.0-16.0); LYMPHOCYTES % (AUTO) 15.5 % (20.5-51.1); MEAN CORPUSCULAR HEMOGLOBIN 28 pg (27-31); MEAN CORPUSCULAR HGB CONC 32 g/dL (33-37); MEAN CORPUSCULAR VOLUME 85 fL (80-94); MONOCYTES # (AUTO) 1.1 K/uL (0.8-1.0); NEUTROPHILS # (AUTO) 4.2 K/uL (1.8-7.7); NEUTROPHILS % (AUTO) 62.6 % (42.2-75.2); PLATELET COUNT (AUTO) 297 K/uL (140-450); RED BLOOD CELL COUNT(AUTO) 4.61 MIL/uL (4.20-5.40); RED CELL DISTRIBUTION WIDTH 14.6 % (11.6-13.7); WHITE BLOOD COUNT (AUTO) 6.7 K/uL (4.8-10.8)
[2017-11-26 07:08] LABS: ALBUMIN 2.9 g/dL (3.4-5.0); CARBON DIOXIDE 23.2 mmol/L (21-32); CREATININE 0.7 mg/dL (0.6-1.3); POTASSIUM 4.2 mmol/L (3.5-5.1); TOTAL BILIRUBIN 0.6 mg/dL (0.0-1.0)
[2017-11-26] MEDS: BUDESONIDE 0.5 MG/2 ML NEBU INH SCH ×2 (07:15→19:01)
--- NOTE | 2017-11-26 07:21 | NUR ---
BEDSIDE REPORT GIVEN TO DAYSHIFT NURSE FOR CONTINUITY OF CARE, PT IN STABLE CONDITION. NO S/S OF DISTRESS NOTED.
--- NOTE | 2017-11-26 07:24 | NUR ---
REPORT RECEIVED FROM CEMENT MIXER NURSE, NERIQUE, PT SLEEPING QUIETLY IN NAD, RESP EVEN UNLABORED, SKIN WARM DRY COLOR WNL, DENIES PAIN OR DISCOMFORT, AROUSES EASILY, RT AT BEDSIDE FOR NEB, PLAN OF CARE REVIEWED, NO IMMEDIATE NEEDS IDENTIFIED, ALL SAFETY MEASURES IN PLACE, WILL CONTINUE TO MONITOR
[2017-11-26 08:00] VITALS: BP 111/77
--- NOTE | 2017-11-26 08:10 | NUR ---
PT TAKEN TO CT IN BED
[2017-11-26] MEDS: PANTOPRAZOLE 40 MG INJ VIAL IVP SCH (08:47)
[2017-11-26] MEDS: DOCUSATE 100 MG/10 ML UDC GT SCH (08:47)
[2017-11-26] MEDS: LEVOFLOXACIN 500 MG/D5W PREMIX 100 ML IV SCH (08:47)
[2017-11-26] MEDS: FLUCONAZOLE 100 MG TAB PO SCH (08:48)
[2017-11-26] MEDS: ASPIRIN 81 MG TAB.CHEW PO SCH (08:48)
[2017-11-26] MEDS: FERROUS SULFATE 325 MG TABEC PO SCH ×2 (08:48→17:05)
[2017-11-26] MEDS: ASCORBIC ACID 500 MG TAB PO SCH (08:49)
[2017-11-26] MEDS: amLODIPine 5 MG TAB PO SCH (08:49)
[2017-11-26] MEDS: MUPIROCIN 2% OINT 22 GM TUBE TP SCH (08:49)
[2017-11-26] MEDS: lamoTRIgine 25 MG TAB PO SCH ×2 (08:49→20:56)
[2017-11-26] MEDS: CHLORHEXADINE GLUC 2% CLOTH TP SCH (08:50)
--- NOTE | 2017-11-26 08:50 | NUR ---
PT MICAH PO MEDS WITH APPLESAUCE, WILL CONTINUE TO MONITOR.
--- NOTE | 2017-11-26 10:02 | NUR ---
PT RESTING IN BED IN NAD, DENIES ANY IMMEDIATE NEEDS, WILL CONTINUE TO MONITOR.
[2017-11-26] MEDS: LOSARTAN 50 MG TAB PO SCH (10:55)
[2017-11-26 12:00] VITALS: BP 99/62
--- NOTE | 2017-11-26 14:35 | NUR ---
CM NOTE REVIEW DONE
--- NOTE | 2017-11-26 15:45 | NUR ---
VOIDED IN BED, DIAPER CHANGED, PERICARE DONE, PT POSITIONED IN RIGHT LATERAL POSITION, PT MICAH WELL, IVF CONTINUES TO INFUSE, SITE WNL, WRAPPED WITH SKY TO PREVENT PULLING, MITTENS REPLACED, HANDS WITH GOOD COLOR AND MOVEMENTS, PT DENIES PAIN OR DISCOMFORT, NO IMMEDIATE NEEDS IDENTIFIED, SIDE RAILS UP, BED LOCKED IN LOW POSITION, CALL HIGGINS WITHIN REACH, SZ PRECAUTIONS IN PLACE, WILL CONTINUE TO MONITOR
[2017-11-26 16:00] VITALS: BP 122/72
--- NOTE | 2017-11-26 16:51 | NUR ---
BEDSIDE GLUCOSE 116, NO INSULIN NEEDED PER SLIDING SCALE.
--- NOTE | 2017-11-26 19:13 | NUR ---
REPORT GIVEN TO MEDICAL VAN DRIVER NURSE, PT IN STABLE CONDITION.
--- NOTE | 2017-11-26 19:20 | NUR ---
RECEIVED REPORT FROM DAY SHIFT RN, PATIENT RESTING IN BED, AWAKE ALERT, ORIENTED X1, NO S/S OF DISTRESS NOTED, RESPIRATION EVEN AND UNLABORED, ON ROOM AIR. IV PATENT AND INTACT, INFUSING 1/2NS-KCL AT 150ML/HR. CALL LIGHT WITHIN REACH, SAFETY MEASURE ENSURED, WILL CONTINUE TO MONITOR.
[2017-11-26 20:00] VITALS: BP 116/90
--- NOTE | 2017-11-26 20:56 | NUR ---
DUE MEDICATION ADMINISTERED, PATIENT TOLERATED WELL. NO S/S OF DISTRESS NOTED, RESPIRATION EVEN AND UNLABORED, REPOSITIONED PATIENT WITH THE AIR POLLUTION SPECIALIST, CALL LIGHT WITHIN REACH, SAFETY MEASURE ENSURED, WILL CONTINUE TO MONITOR.
--- NOTE | 2017-11-26 22:50 | NUR ---
PATIENT WAS ABLE TO SIT UP AND CHANGE HER POSITION. REPOSITIONED PATIENT BACK TO THE CENTER OF THE BED WITH THE FOIL OPERATOR, CALL LIGHT WITHIN REACH, SAFETY MEASURE ENSURED, WILL CONTINUE MONITOR.
[2017-11-27] VITALS: BP 106/79
--- NOTE | 2017-11-27 00:40 | NUR ---
VITAL SIGNS STABLE, NOTED PATIENT VOIDED, CLEANED THE PATIENT, REPOSITIONED PATIENT WITH THE PRINTED CIRCUIT BOARDS PINNER, CALL LIGHT WITHIN REACH, SAFETY MEASURE ENSURED, WILL CONTINUE TO MONITOR.
--- NOTE | 2017-11-27 02:38 | NUR ---
IV INFILTRATED, CHARGE NURSE STARTED NEW IV 24 G ON RT FOREARM, OLD IV CATHETER TAKEN OUT, TIP INTACT, NO ACTIVE BLEEDING NOTED, REPOSITIONED PATIENT, CALL LIGHT WITHIN REACH, SAFETY MEASURE ENSURED, WILL CONTINUE TO MONITOR.
[2017-11-27] MEDS: POTASSIUM CHL 20 MEQ/ 1/2 NS 1,000 ML IV SCH ×2 (03:07→11:59)
[2017-11-27 04:00] VITALS: BP 110/64
--- NOTE | 2017-11-27 04:27 | NUR ---
VITAL SIGNS STABLE, NO /S OF DISTRESS NOTED, REPOSITIONED PATIENT WITH THE AEROSPACE ENGINEER OFFICER ARMAMENT, CALL LIGHT WITHIN REACH, SAFETY MEASURE ENSURED, WILL CONTINUE TO MONITOR.
[2017-11-27] MEDS: BLOOD GLUCOSE MONITORING 1 DEV DEV FS SCH ×3 (06:35→17:13)
--- NOTE | 2017-11-27 06:35 | NUR ---
BS 148, HUMALOG IS NOT ADMINISTERED.
--- NOTE | 2017-11-27 06:54 | NUR ---
DR. ORLANDO CAME AND EXAMINED THE PATIENT AT THE BEDSIDE.
[2017-11-27 06:56] LABS: BASOPHILS # (AUTO) 0.3 K/uL (0.00-0.22); BASOPHILS % (AUTO) 3.8 % (0.0-2.0); EOSINOPHILS # (AUTO) 0.2 K/uL (0-0.4); EOSINOPHILS % (AUTO) 2.2 % (0.0-4.0); HEMATOCRIT 39.8 % (36-48); HEMOGLOBIN 12.5 g/dL (12.0-16.0); LYMPHOCYTES # (AUTO) 1.3 K/uL (2.5-16.5); LYMPHOCYTES % (AUTO) 15.6 % (20.5-51.1); MEAN CORPUSCULAR HEMOGLOBIN 27 pg (27-31); MEAN CORPUSCULAR HGB CONC 31 g/dL (33-37); MEAN CORPUSCULAR VOLUME 86 fL (80-94); MONOCYTES # (AUTO) 0.7 K/uL (0.8-1.0); MONOCYTES % (AUTO) 7.7 % (1.7-9.3); NEUTROPHILS % (AUTO) 70.7 % (42.2-75.2); PLATELET COUNT (AUTO) 182 K/uL (140-450); RED BLOOD CELL COUNT(AUTO) 4.62 MIL/uL (4.20-5.40); RED CELL DISTRIBUTION WIDTH 14.2 % (11.6-13.7); WHITE BLOOD COUNT (AUTO) 8.5 K/uL (4.8-10.8)
[2017-11-27] MEDS: BUDESONIDE 0.5 MG/2 ML NEBU INH SCH (07:10)
--- NOTE | 2017-11-27 07:25 | NUR ---
ENDORSED PLAN OF CARE TO DAY SHIFT RN. PATIENT IS IN STABLE CONDITION.
[2017-11-27 07:26] LABS: ALBUMIN 2.9 g/dL (3.4-5.0); CREATININE 0.7 mg/dL (0.6-1.3); TOTAL BILIRUBIN 0.6 mg/dL (0.0-1.0)
--- NOTE | 2017-11-27 07:28 | NUR ---
RECEIVED BEDSIDE REPORT FROM BORE MILL OPERATOR NURSE. PATIENT IS CURRENTLY RESTING BUT EASILY AROUSABLE AT THIS TIME. ABLE TO FOLLOW SIMPLE COMMANDS. NO S/S OF RESPIRATORY DISTRESS. SEIZURE PRECAUTIONS IN PLACE WITH BED RAILS UP AND PADDING IN PLACE. FALL RISK PROTOCOL IN PLACE. 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 SKIN IS WARM, DRY, AND INTACT. IV IN R FOREARM 24 GAUGE WRAPPED IN [place]ERLIX INFUSING KCL 20MEQ AT 150ML/HR. SOFT MITTEN IN LEFT HAND IN PLACE TO PREVENT PATIENT PULLING OUT IV. CLAMPED GTUBE IN PLACE, CLEAN AND DRY. PATIENT IS INCONTINENT. BED IN LOW POSITION, CALL LIGHT WITHIN REACH. WILL CONTINUE TO MONITOR.
[2017-11-27 07:35] LABS: POTASSIUM 4.3 mmol/L (3.5-5.1)
[2017-11-27 07:51] LABS: ANION GAP 20.1 (8-16); CARBON DIOXIDE 14.2 mmol/L (21-32)
[2017-11-27 08:00] VITALS: BP 112/70
[2017-11-27] MEDS: amLODIPine 5 MG TAB PO SCH ×2 (09:00→09:10)
[2017-11-27] MEDS: LOSARTAN 50 MG TAB PO SCH ×2 (09:00→09:09)
[2017-11-27] MEDS: FLUCONAZOLE 100 MG TAB PO SCH (09:09)
[2017-11-27] MEDS: FERROUS SULFATE 325 MG TABEC PO SCH ×2 (09:10→17:14)
[2017-11-27] MEDS: lamoTRIgine 25 MG TAB PO SCH (09:10)
[2017-11-27] MEDS: ASCORBIC ACID 500 MG TAB PO SCH (09:11)
[2017-11-27] MEDS: PANTOPRAZOLE 40 MG INJ VIAL IVP SCH (09:11)
[2017-11-27] MEDS: DOCUSATE 100 MG/10 ML UDC GT SCH (09:11)
[2017-11-27] MEDS: CHLORHEXADINE GLUC 2% CLOTH TP SCH (09:12)
[2017-11-27] MEDS: MUPIROCIN 2% OINT 22 GM TUBE TP SCH (09:12)
[2017-11-27] MEDS: LEVOFLOXACIN 500 MG/D5W PREMIX 100 ML IV SCH (09:13)
[2017-11-27] MEDS: ASPIRIN 81 MG TAB.CHEW PO SCH (09:13)
--- NOTE | 2017-11-27 09:40 | NUR ---
ADMINISTERED MEDS PER PROTOCOL, CRUSHED AND IN APPLESAUCE. HELD BLOOD PRESSURE MEDICATIONS D/T DECREASED BP. PATIENT TOLERATED WELL. PER PHARMACY LEVAQUIN IS NOT COMPATIBLE WITH KCL. ADMINISTERED WITH 1/2NS. WILL CONTINUE TO MONITOR PATIENT.
--- NOTE | 2017-11-27 10:00 | NUR ---
I call Patient's son Gregory Galindo at to discuss and gather Patient's information in regards her care. Patient's son was pleased to hear an update on patient status and stated been in contact and having good communication with Hospital and nursing staff. Patient's son stated wanting her to return to same SNF. He had no questions and concerns at the time. Fishing Floats Assembler and Naval Science Teacher will follow up as needed.
--- NOTE | 2017-11-27 10:23 | NUR ---
FAXED INFORMATION TO [facility] [phone]
--- NOTE | 2017-11-27 11:30 | NUR ---
CHECKED PATIENTS BLOOD GLUCOSE PER PROTOCOL. NO COVERAGE NEEDED. PATIENT IS IN STABLE CONDITION. BED IN LOW POSITION, CALL LIGHT WITHIN REACH. WILL CONTINUE TO MONITOR.
[2017-11-27 12:00] VITALS: BP 103/70
--- NOTE | 2017-11-27 12:55 | NUR ---
RECEIVED A CALL FROM GERMAIN FROM [facility]. IT PATIENT CAN GO TO ROOM 11B UNDER DR. ORLANDO. ROMEO ALMAGUER AWARE.
--- NOTE | 2017-11-27 14:00 | NUR ---
PATIENT CURRENTLY EATING LUNCH, PATIENT ABLE TO SELF FEED. NO S/S OF RESPIRATORY DISTRESS ON ROOM AIR. BED IN LOW POSITION, CALL LIGHT WITHIN REACH. WILL CONTINUE TO MONITOR.
--- NOTE | 2017-11-27 14:19 | NUR ---
GAVE REPORT TO CLAYTON FROM [facility]. [facility] HAS A ROOM, [facility], READY FOR PATIENT. PATIENT IS IN STABLE CONDITION. NO S/S OF RESPIRATORY DISTRESS. WILL GET PATIENT READY FOR TRANSPORT AND WILL CONTINUE TO MONITOR.
--- NOTE | 2017-11-27 15:22 | NUR ---
CALLED SHADE FROM [facility] AND GAVE VERBAL REPORT.
--- NOTE | 2017-11-27 15:29 | NUR ---
CALLED [facility]. NO CRITERIA FROM [facility] FOR AMBULANCE TRANSPORT UNDER MEDICARE PART B OR MEDICAL. I CALLED [facility] AND TO QUOTE FOR GURNEY TRANSPORT, $102. I CALLED SON , MARKY AND HE SAID HE WOULD NOT BE ABLE TO PAY TRANSPORT. I CHECKED WITH KARIN ALMAGUERDYE BOX OPERATOR DIRECTOR AND SHE SAID TO ARRANGE TRANSPORT FOR US TO PAY. CALLED [facility] AND SET UP GURNEY TRANSPORT FOR 6:30P.M. MANINDER ALMAGUER AWARE.
--- NOTE | 2017-11-27 15:54 | NUR ---
GETTING PATIENT READY FOR DISCHARGE. REMOVED IV FROM RIGHT WRIST. REMOVED WRISTS BANDS. REMOVED FLY WINDER. CHANGED GOWN AND GROOMED PATIENT. PATIENT IS CURRENTLY RESTING WITH NO S/S OF DISTRESS. WILL AWAIT FOR TRANSPORT AND WILL CONTINUE TO MONITOR.
[2017-11-27 16:00] VITALS: BP 119/78
--- NOTE | 2017-11-27 16:53 | NUR ---
PT SLEEPING SOUNDLY. NO SIGNS OF DISTRESS. STILL WAITING ON [facility]. WILL CONTINUE TO MONITOR PT.
[2017-11-27] MEDS: INSULIN LISPRO SLIDING SCALE 100 UNITS/ML VIAL SUBQ PRN (17:56)
--- NOTE | 2017-11-27 18:24 | NUR ---
PATIENT BEING FEED BY STUDENT NURSE. PATIENT TOLERATING FOOD WELL. NO SIGNS OF RESPIRATORY DISTRESS AT THIS TIME. WILL CONTINUE TO MONITOR PATIENT.
--- NOTE | 2017-11-27 18:50 | NUR ---
WHEELED PATIENT OUT ON [facility]. PATIENT IN STABLE CONDITION.
== END 2017-11-27 18:50 | disposition home or self-care (01) | DRG 720 ==
LOC: MED 08:35 → INTOOBSV 13:29 → MTU 13:29 → OBSVTOIN 13:30 → MTU 14:14
PROVIDERS: ADMIT Family Medicine; ATTEND Family Medicine
DX: A41.9 Sepsis, unspecified organism (principal); F03.90 Unspecified dementia, unspecified severity, without behavioral disturbance, psychotic disturbance, mood disturbance, and anxiety; I50.9 Heart failure, unspecified; I11.0 Hypertensive heart disease with heart failure; E44.1 Mild protein-calorie malnutrition; Z93.1 Gastrostomy status; R13.10 Dysphagia, unspecified; G40.909 Epilepsy, unspecified, not intractable, without status epilepticus; E11.9 Type 2 diabetes mellitus without complications; B37.49 Other urogenital candidiasis; J44.9 Chronic obstructive pulmonary disease, unspecified; D64.9 Anemia, unspecified; K80.20 Calculus of gallbladder without cholecystitis without obstruction; K21.9 Gastro-esophageal reflux disease without esophagitis; J45.909 Unspecified asthma, uncomplicated; Z86.73 Personal history of transient ischemic attack (TIA), and cerebral infarction without residual deficits; Z79.82 Long term (current) use of aspirin; Z79.899 Other long term (current) drug therapy
CPT/HCPCS: 96361; 96365; 99285; G0378; 36415; 70450; 71045; 76700; 80048; 80053; 80305; 81001; 82140; 82150; 82948; 83605; 83690; 83735; 83880; 84100; 84439; 84443; 84479; 84484; 85025; 85610; 85730; 87040; 87070; 87081; 87086; 93005; 94640; C1758; C9113; J1815; J1956; J3480; J7030; J7060; J7512; J7626; Q0092

== ENCOUNTER 2017-12-28 17:39 | Inpatient (IN) | payer MEDICAID, MEDICARE ==
[~2017-12-28] VITALS: Ht 167.6 cm; Wt 51.7 kg
[~2017-12-28 17:39] MED LIST changes: -AMLO5TAB PO; -BACTO TP; -ROC2I IV; -SULF-59 GT/PO
--- NOTE | 2017-12-28 17:43 | NUR ---
Note undone in EDM - 12/28/17 at 1813 by CORRIE XENIA FROM [facility], WITH C/O ALOC AN HOUR AGO, IV ACCESS ON RFA G#18, NS 500MLS BOLUS ENROUTE, BLOOD SUGAR 260 MG/DL, WITH G TUBE. SKIN IS PINK/WARM/DRY; AAOX4 WITH EVEN AND STEADY GAIT; LUNGS CLEAR BL; HR EVEN AND REGULAR; PT DENIES ANY FEVER, CP, SOB, OR COUGH AT THIS TIME; PATIENT STATES PAIN OF 0/10 AT THIS TIME; VSS; PATIENT POSITIONED FOR COMFORT; HOB ELEVATED; BEDRAILS UP X2; BED DOWN. ER MADE AWARE OF PT STATUS.
--- NOTE | 2017-12-28 17:43 | NUR ---
GILA FROM [facility], WITH C/O ALOC AN HOUR AGO, IV ACCESS ON RFA G#18, NS 500MLS BOLUS ENROUTE, BLOOD SUGAR 260 MG/DL, WITH G TUBE LEFT ABDOMEN. HX :SEIZURE, HTN, DEPRESSEION, PSYCHOSIS, DELAYED DEVELOPMENTAL DISORDER. SKIN IS,PINK/WARM/DRY. LUNGS CRAKLE BL. PT HAS SEIZURE 2 MINS AT THIS TIME ; DR HUFF ORDER ATIVAN 1 MG IV. HER PULSE OX 89% ON OXYGEN 2L/M. PATIENT POSITIONED FOR COMFORT; HOB ELEVATED; BEDRAILS UP X2; BED DOWN. ER MD MADE AWARE OF PT STATUS.
[2017-12-28] MEDS ORDERED: LORazepam 2 MG/ML VIAL IVP ONE (17:45)
[2017-12-28] MEDS ORDERED: NACL 0.9% 1,000 ML IV SCH (17:46)
[2017-12-28 17:48] VITALS: BP 128/86
[2017-12-28] MEDS ORDERED: LORazepam 2 MG/ML VIAL ONE (17:48)
[2017-12-28] MEDS ORDERED: INSU100S22 SUBQ (18:01)
--- NOTE | 2017-12-28 18:10 | NUR ---
LAB AT BEDSIDE.
[2017-12-28] MEDS ORDERED: cefTRIAXone 1,000 MG VIAL ONE (18:11)
--- NOTE | 2017-12-28 18:30 | NUR ---
STRAIT CATH URINE YELLOW 400 CC.
[2017-12-28 18:58] LABS: APPEARANCE,URINE CLEAR (CLEAR); BILIRUBIN,URINE NEGATIVE (NEGATIVE); BLOOD, URINE NEGATIVE (NEGATIVE); LEUKOCYTE ESTERASE ,URINE NEGATIVE (NEGATIVE); NITRITE, URINE NEGATIVE (NEGATIVE); UGLUCOSE 1+ (NEGATIVE)
--- NOTE | 2017-12-28 18:59 | NUR ---
X RAY AT BEDSIDE.
[2017-12-28 19:08] LABS: ANION GAP 20.9 (8-16); CARBON DIOXIDE 17.3 mmol/L (21-32); POTASSIUM 5.2 mmol/L (3.5-5.1)
[2017-12-28 19:09] LABS: COLOR,URINE STRAW (YELLOW)
[2017-12-28 19:09] LABS: BASOPHILS # (AUTO) 0.1 K/uL (0.00-0.22); BASOPHILS % (AUTO) 0.7 % (0.0-2.0); EOSINOPHILS # (AUTO) 0.2 K/uL (0-0.4); EOSINOPHILS % (AUTO) 1.8 % (0.0-4.0); HEMATOCRIT 38.3 % (36-48); HEMOGLOBIN 11.7 g/dL (12.0-16.0); LYMPHOCYTES # (AUTO) 0.7 K/uL (2.5-16.5); LYMPHOCYTES % (AUTO) 6.7 % (20.5-51.1); MEAN CORPUSCULAR HEMOGLOBIN 27 pg (27-31); MEAN CORPUSCULAR HGB CONC 31 g/dL (33-37); MEAN CORPUSCULAR VOLUME 88.9 fL (80-94); MONOCYTES # (AUTO) 0.5 K/uL (0.8-1.0); MONOCYTES % (AUTO) 4.8 % (1.7-9.3); PLATELET COUNT (AUTO) 321 K/uL (140-450); RED CELL DISTRIBUTION WIDTH 14.3 % (11.6-13.7); WHITE BLOOD COUNT (AUTO) 10.5 K/uL (4.8-10.8)
--- NOTE | 2017-12-28 19:12 | NUR ---
Pt report given to TRIPP LAINEZ. Transfer of care at this time.
[2017-12-28 19:14] LABS: ALBUMIN 2.8 g/dL (3.4-5.0); TOTAL BILIRUBIN 0.2 mg/dL (0.0-1.0)
--- NOTE | 2017-12-28 19:18 | NUR ---
RECEIVED REPORT LINDSAY ALMAGUER
[2017-12-28 19:19] LABS: RBC,URINE NONE SEEN /HPF (0-5); WBC,URINE 6-15 (FEW) /HPF (0-5); YEAST,URINE Few /HPF (None Seen)
[2017-12-28] MEDS ORDERED: NACL 0.9% 1,000 ML IV ONE (19:25)
--- NOTE | 2017-12-28 19:40 | NUR ---
PATIENT BACK FROM CT
--- NOTE | 2017-12-28 21:55 | NUR ---
ADMITTED PATIENT TO THE TELE UNIT, PATIENT IS DROWSY, BUT NO S/S OF DISTRESS NOTED, RESPIRATION EVEN AND UNLABORED, IV PATENT AND INTACT, TELE MONITOR PLACED ON PATIENT. PATIENT VOIDED X1, CLEANED AND REPOSITIONED PATIENT IN THE BED, CALL LIGHT WITHIN REACH, SAFETY MEASURE ENSURED, WILL CONTINUE TO MONITOR. Addendum: 12/28/17 at 2208 by Roberta Patiño RN G-TUBE IN PLACE
[2017-12-28 22:00] VITALS: BP 143/83
[2017-12-28] MEDS ORDERED: LORazepam 2 MG/ML VIAL IVP PRN (22:25)
--- NOTE | 2017-12-28 22:30 | NUR ---
LACTIC ACID 3.1, POTASSIUM 5.2, MADE DR. ORLANDO AWARE. RECEIVED ORDERS OF IV FLUID 1/2NS AT 150ML/HR, ATIVAN 10G IV PUSH, Q2H, PRN FOR SEIZURE, LOVENOX 30MG SUBQ DAILY, AND GIVE ONE DOES FOR NOW, ORDERS READ BACK, AND DR. ORLANDO CONFIRMED.
[2017-12-28] MEDS ORDERED: ENOXAPARIN 30 MG/0.3 ML SYR SUBQ SCH (23:00)
[2017-12-28] MEDS: NACL 0.45% 1,000 ML IV SCH (23:20)
--- NOTE | 2017-12-29 00:49 | NUR ---
PATIENT IS SLEEPING, NO S/S OF DISTRESS NOTED, RESPIRATION EVEN AND UNLABORED, CALL LIGHT WITHIN REACH, SAFETY MEASURE ENSURED, WILL CONTINUE TO MONITOR.
--- NOTE | 2017-12-29 02:30 | NUR ---
PATIENT IS SLEEPING, NO S/S OF DISTRESS NOTED, RESPIRATION EVEN AND UNLABORED, CALL LIGHT WITHIN REACH, SAFETY MEASURE ENSURED, WILL CONTINUE TO MONITOR.
[2017-12-29 03:56] VITALS: BP 120/78
--- NOTE | 2017-12-29 04:38 | NUR ---
VITAL SIGNS STABLE, NO S/S OF DISTRESS NOTED, CALL LIGHT WITHIN REACH, SAFETY MEASURE ENSURED, WILL CONTINUE TO MONITOR.
[2017-12-29] MEDS: NACL 0.45% 1,000 ML IV SCH ×3 (05:29→18:25)
--- NOTE | 2017-12-29 06:48 | NUR ---
NO CHANGE IN CONDITION, PATIENT IS SLEEPING, NO S/S OF DISTRESS NOTED, RESPIRATION EVEN AND UNLABORED, CALL LIGHT WITHIN REACH, SAFETY MEASURE ENSURED, WILL CONTINUE TO MONITOR.
--- NOTE | 2017-12-29 07:17 | NUR ---
ENDORSED PLAN OF CARE TO DAY SHIFT, PATIENT IS IN STABLE CONDITION.
[2017-12-29 07:27] LABS: BASOPHILS # (AUTO) 0.1 K/uL (0.00-0.22); BASOPHILS % (AUTO) 1.1 % (0.0-2.0); EOSINOPHILS # (AUTO) 0.2 K/uL (0-0.4); EOSINOPHILS % (AUTO) 1.7 % (0.0-4.0); HEMATOCRIT 38.5 % (36-48); HEMOGLOBIN 11.9 g/dL (12.0-16.0); LYMPHOCYTES # (AUTO) 1.8 K/uL (2.5-16.5); LYMPHOCYTES % (AUTO) 13.7 % (20.5-51.1); MEAN CORPUSCULAR HEMOGLOBIN 27 pg (27-31); MEAN CORPUSCULAR HGB CONC 31 g/dL (33-37); MEAN CORPUSCULAR VOLUME 87.7 fL (80-94); MONOCYTES # (AUTO) 0.9 K/uL (0.8-1.0); MONOCYTES % (AUTO) 7.3 % (1.7-9.3); NEUTROPHILS % (AUTO) 76.2 % (42.2-75.2); PLATELET COUNT (AUTO) 332 K/uL (140-450); RED CELL DISTRIBUTION WIDTH 14.3 % (11.6-13.7); WHITE BLOOD COUNT (AUTO) 13.1 K/uL (4.8-10.8)
--- NOTE | 2017-12-29 07:30 | NUR ---
RECEIVED REPORT FROM RESEARCH AND INSIGHTS EXECUTIVE NURSE, PT IS RESTING IN BED, SEMI FOWLERS POSITION, AAOX1, NON-VERBAL, PT IS UNABLE TO AMBULATE, PT HAS IV ON HER RIGHT FA, PATENT, INTACT, FLUSHING WELL, PT HAS G-TUBE IN PLACE, PT IS ON O2 2L NC, NO S/S OF RESPIRATORY DISTRESS OR DISCOMFORT NOTED, DISCUSSED PLAN OF CARE WITH PT, PT UNABLE TO VERBALIZE UNDERSTANDING, SAFETY/FALL/SEIZURE/ASPIRATION PRECAUTIONS ARE IN PLACE, CALL LIGHT IS WITHIN REACH, WILL CONTINUE TO MONITOR.
[2017-12-29 07:42] LABS: ALBUMIN 2.8 g/dL (3.4-5.0); ANION GAP 12.5 (8-16); CARBON DIOXIDE 25.1 mmol/L (21-32); CREATININE 0.6 mg/dL (0.6-1.3); POTASSIUM 3.6 mmol/L (3.5-5.1); TOTAL BILIRUBIN 0.4 mg/dL (0.0-1.0)
[2017-12-29 08:00] VITALS: BP 126/84
[2017-12-29] MEDS: ENOXAPARIN 30 MG/0.3 ML SYR SUBQ SCH (09:04)
--- NOTE | 2017-12-29 09:04 | NUR ---
DUE MEDICATION GIVEN, PT TOLERATED WELL, CALL LIGHT WITHIN REACH, WILL CONTINUE TO MONITOR.
[2017-12-29] MEDS ORDERED: INSULIN LISPRO SLIDING SCALE 100 UNITS/ML VIAL SUBQ PRN (09:20)
[2017-12-29] MEDS ORDERED: DEXTROSE 50% 50 ML SYR IVP PRN (09:20)
--- NOTE | 2017-12-29 10:59 | NUR ---
PATIENT HAS BEEN SCREENED AND CATEGORIZED HIGH RISK. PATIENT WILL BE SEEN WITHIN 1-2 DAYS OF ADMISSION. 12/29- ISABEL [address], [facility]
--- NOTE | 2017-12-29 11:55 | NUR ---
12/29/17 RD INITIAL ASSESSMENT COMPLETED PLEASE REFER TO NUTRITION ASSESSMENT UNDER CARE ACTIVITY FOR ESTIMATED NEEDS. RD RECOMMENDATIONS: 1. CONTINUE CURRENT DIET TOLERATED. *PLEASE OBTAIN A FORMAL SWALLOW EVALUATION IF C/F SWALLOWING DIFFICULTIES. 2. IF PT IS UNABLE TO TOLERATE PO DIET INITIATE TF WITH NUTREN PULMONARY AT 5ML ADVANCE BY 10ML Q4H TO GOAL RATE 45ML/HR. PROVIDES DAILY: 1080ML, 1620KCALS, 73G PROTEIN, 845ML FREE WATER 3. RD WILL FOLLOW UP IN 2-3 DAYS; HIGH RISK. ISABEL JACKSON RD, [facility]
[2017-12-29 12:00] VITALS: BP 142/85
[2017-12-29] MEDS: BLOOD GLUCOSE MONITORING 1 DEV DEV FS SCH ×3 (12:07→20:18)
--- NOTE | 2017-12-29 12:20 | NUR ---
PT IS RESTING IN BED AT THIS TIME, NO S/S OF RESPIRATORY DISTRESS OR DISCOMFORT NOTED, CALL LIGHT WITHIN REACH.
--- NOTE | 2017-12-29 15:10 | NUR ---
PT'S TURNED FOR COMFORT, ALL NEEDS MET AT THIS TIME, CALL LIGHT WITHIN REACH, WILL CONTINUE TO MONITOR.
--- NOTE | 2017-12-29 15:36 | NUR ---
SPOKE TO DR. ORLANDO OVER THE PHONE. I LET HIM KNOW JULIO CÉSAR FROM PHARMACY HAD SPOKEN WITH ME AND I WAS TOLD THE FOSAMAX CAN NOT BE GIVEN THROUGH G -TUBE. PER DR. ORLANDO HOLD OFF ON THE FOSAMAX. I VERIFIED IF ALL MEDS NEEDED TO BE GIVEN THROUGH G-TUBE OR IF THEY COULD BE ORAL. PER DR. ORLANDO THEY SHOULD ALL BE G-TUBE.
[2017-12-29 16:00] VITALS: BP 131/83
--- NOTE | 2017-12-29 17:00 | NUR ---
PT RESTING IN BED AT THIS TIME, PT WAS CONNECTED TO BACK TO TELE MONITOR.
--- NOTE | 2017-12-29 19:12 | NUR ---
ENDORSED PT TO TECHNICAL ACCOUNT REPRESENTATIVE NURSE FOR CONTINUITY OF CARE. PT STABLE AT THIS TIME.
[2017-12-29] MEDS ORDERED: BUDESONIDE 0.5 MG/2 ML NEBU INH SCH (19:30)
--- NOTE | 2017-12-29 19:30 | NUR ---
RECEIVED REPORT FROM DAY SHIFT, PATIENT RESTING IN BED, NO S/S OF DISTRESS NOTED, RESPIRATION EVEN AND UNLABORED, ON ROOM AIR. IV PATENT AND INTACT, INFUSING 1/2NS AT 150ML/HR, CALL LIGHT WITHIN REACH, SAFETY MEASURE ENSURED, WILL CONTINUE TO MONITOR.
[2017-12-29 20:00] VITALS: BP 118/76
[2017-12-29] MEDS: FERROUS SULFATE 300 MG/5 ML UDC GT SCH (20:31)
[2017-12-29] MEDS: lamoTRIgine 25 MG TAB PO SCH (20:32)
[2017-12-29] MEDS: LABETALOL 100 MG TAB PO SCH (20:32)
--- NOTE | 2017-12-29 20:57 | NUR ---
NO RESIDUAL, DUE MEDICATION GIVEN, PATIENT TOLERATED WELL. NO S/S OF DISTRESS NOTED, WILL CONTINUE TO MONITOR.
[2017-12-29] MEDS ORDERED: NON-FORMULARY ITEM (Insulin Glargine,Hum.rec.anlog (Lantus Solostar) 20 UNIT) SUBQ SCH (21:00)
[2017-12-29] MEDS ORDERED: FERROUS SULFATE 330 MG GT SCH (21:00)
[2017-12-29] MEDS ORDERED: FLUTICASONE PROPIONATE 220 MCG INH SCH (21:00)
[2017-12-29] MEDS ORDERED: INSULIN LANTUS 100 UNITS/ML 10 ML VIAL SUBQ SCH (21:00)
--- NOTE | 2017-12-29 22:40 | NUR ---
NO CHANGE IN CONDITION, PATIENT RESTING IN BED, RESPIRATION EVEN AND UNLABORED, NO S/S OF DISTRESS NOTED, WILL CONTINUE TO MONITOR.
[2017-12-30] VITALS: BP 135/72
--- NOTE | 2017-12-30 00:17 | NUR ---
VITAL SIGNS STABLE, RESPIRATION EVEN AND UNLABORED, VOIDED X1, CLEANED AND REPOSITIONED THE PATIENT, CALL LIGHT WITHIN REACH, SAFETY MEASURE ENSURED, WILL CONTINUE TO MONITOR.
[2017-12-30] MEDS: NACL 0.45% 1,000 ML IV SCH ×3 (00:35→08:49)
[2017-12-30] MEDS ORDERED: LORazepam 2 MG/ML VIAL IVP ONE (01:25)
--- NOTE | 2017-12-30 01:27 | NUR ---
BED ALARM HEARD, FOUND PATIENT WAS AGITATED AND TRYING TO GET OUT OF THE BED, REPOSITIONED PATIENT BACK TO THE MIDDLE OF THE BED, AND MADE DR. ORLANDO AWARE THAT PATIENT WAS AGITATED AND TRYING TO GET OUT OF THE BED, RECEIVED ORDER OF ATIVAN 0.5MG, IV PUSH, ONCE, FOR AGITATION. ORDER READ BACK AND DR. ORLANDO CONFIRMED.
--- NOTE | 2017-12-30 02:54 | NUR ---
ENDORSED PLAN OF CARE TO RN SHAWNEE, PATIENT RESTING IN BED, IN STABLE CONDITION.
[2017-12-30 04:00] VITALS: BP 124/78
[2017-12-30] MEDS: BLOOD GLUCOSE MONITORING 1 DEV DEV FS SCH ×2 (05:20→11:53)
--- NOTE | 2017-12-30 05:25 | NUR ---
BLOOD SUGAR PER FINGERSTICK IS 58 MG/DL. PT. AWAKE AND ABLE TO VERBALIZE. TALKING. D50 IVPUSH 1 SYRINGE ADMINISTERED PROTOCOL FOR BS LESS THAN 60.
--- NOTE | 2017-12-30 06:24 | NUR ---
BLOOD SUGAR RE-CHECKED AT THIS TIME AFTER D50 GIVEN IV PUSH IS 142. PT. QUIET AT THIS TIME. VERBALIZING . TELEMETRY MONITORING. NEEDS ANTICIPATED AND MET. TOTAL CARE RT SEVERE CONFUSION.
--- NOTE | 2017-12-30 07:23 | NUR ---
ENDORSED TO THE NEXT RN FOR CONTINUITY OF CARE. AWAKE AND ALERT. NO SOB. NO RESTLESSNESS.
--- NOTE | 2017-12-30 07:25 | NUR ---
RECEIVED REPORT FROM LINE ASSEMBLER NURSE, PT IS RESTING IN BED, SEMI FOWLERS POSITION, AAOX1, NON-VERBAL, PT IS UNABLE TO AMBULATE, PT HAS IV ON HER RIGHT FA, PATENT, INTACT, FLUSHING WELL, PT HAS G-TUBE IN PLACE, NO S/S OF RESPIRATORY DISTRESS OR DISCOMFORT NOTED, DISCUSSED PLAN OF CARE WITH PT, PT UNABLE TO VERBALIZE UNDERSTANDING, SAFETY/FALL/SEIZURE/ASPIRATION PRECAUTIONS ARE IN PLACE, CALL LIGHT IS WITHIN REACH, WILL CONTINUE TO MONITOR.
[2017-12-30 08:00] VITALS: BP 128/60
[2017-12-30 08:18] LABS: BASOPHILS # (AUTO) 0.1 K/uL (0.00-0.22); BASOPHILS % (AUTO) 1.3 % (0.0-2.0); EOSINOPHILS # (AUTO) 0.2 K/uL (0-0.4); EOSINOPHILS % (AUTO) 2.1 % (0.0-4.0); HEMATOCRIT 38.8 % (36-48); HEMOGLOBIN 12.2 g/dL (12.0-16.0); LYMPHOCYTES # (AUTO) 1.7 K/uL (2.5-16.5); LYMPHOCYTES % (AUTO) 21.3 % (20.5-51.1); MEAN CORPUSCULAR HEMOGLOBIN 28 pg (27-31); MEAN CORPUSCULAR HGB CONC 31 g/dL (33-37); MEAN CORPUSCULAR VOLUME 87.9 fL (80-94); MONOCYTES # (AUTO) 0.8 K/uL (0.8-1.0); MONOCYTES % (AUTO) 10.1 % (1.7-9.3); NEUTROPHILS # (AUTO) 5.4 K/uL (1.8-7.7); NEUTROPHILS % (AUTO) 65.2 % (42.2-75.2); PLATELET COUNT (AUTO) 294 K/uL (140-450); RED BLOOD CELL COUNT(AUTO) 4.41 MIL/uL (4.20-5.40); RED CELL DISTRIBUTION WIDTH 14.3 % (11.6-13.7); WHITE BLOOD COUNT (AUTO) 8.2 K/uL (4.8-10.8)
[2017-12-30 08:46] LABS: ANION GAP 13.6 (8-16); CARBON DIOXIDE 26.5 mmol/L (21-32); CREATININE 0.7 mg/dL (0.6-1.3); POTASSIUM 4.1 mmol/L (3.5-5.1)
[2017-12-30] MEDS: FERROUS SULFATE 300 MG/5 ML UDC GT SCH (08:46)
[2017-12-30] MEDS: lamoTRIgine 25 MG TAB PO SCH (08:48)
[2017-12-30] MEDS: LABETALOL 100 MG TAB PO SCH (08:48)
--- NOTE | 2017-12-30 08:48 | NUR ---
DUE MEDICATIONS GIVEN VIA G-TUBE, RESIDUAL WAS CHECKED PRIOR TO MEDICATION ADMINISTRATION , NO RESIDUAL, PT TOLERATED WELL.
[2017-12-30] MEDS: ENOXAPARIN 30 MG/0.3 ML SYR SUBQ SCH (08:50)
[2017-12-30] MEDS ORDERED: predniSONE 10 MG TAB PO SCH (09:00)
[2017-12-30] MEDS ORDERED: DONEPEZIL 10 MG TAB PO SCH (09:00)
[2017-12-30] MEDS ORDERED: ASPIRIN 81 MG TAB.CHEW PO SCH (09:00)
[2017-12-30] MEDS ORDERED: MULTIVITAMIN 1 TAB PO SCH (09:00)
[2017-12-30] MEDS ORDERED: metFORMIN 500 MG TAB PO SCH (09:00)
[2017-12-30] MEDS ORDERED: MONTELUKAST SODIUM 10 MG TAB PO SCH (09:00)
--- NOTE | 2017-12-30 11:00 | NUR ---
PATIENT SLEEPING IN BED AT THIS TIME, CALL LIGHT IS WITHIN REACH. WILL CONTINUE TO MONITOR.
[2017-12-30 12:00] VITALS: BP 120/77
--- NOTE | 2017-12-30 12:19 | NUR ---
SPOKE WITH OCHOA FROM [facility] REGARDING PT'S DISCHARGE BACK TO THEIR FACILITY, OCHOA STATED PT'S ROOM WILL BE IN -. JOSE-TRIPP ASSIGNED MADE AWARE.
--- NOTE | 2017-12-30 12:45 | NUR ---
PT RESTING IN BED, NO S/S OF RESPIRATORY DISTRESS OR DISCOMFORT NOTED. CALL LIGHT WITHIN REACH.
[2017-12-30] MEDS ORDERED: ROC2I IV (12:53)
--- NOTE | 2017-12-30 13:46 | NUR ---
INFORMED OCHOA-CHARGE NURSE AT [facility] REGARDING PT'S LATEST MICROBIOLOGY RESULTS E. COLI AND MDRO URINE. PER OCHOA, PT IS STILL GOING TO ROOM 11-B. SUSCEPTIBILITY RESULTS FAXED TO OCHOA REQUESTED. SPOKE WITH KATHARINE FROM [facility], UTILIZATION MANAGEMENT MANAGER TIME WILL BE AT 3PM TODAY. MEDICARE FORM FAXED TO [facility], CONFIRMATION RECEIVED. JOSE-RN NURSE ASSIGNED NOTIFIED OF ETA FOR TRANSPORTATION.
--- NOTE | 2017-12-30 14:02 | NUR ---
CALLED [facility] AND GAVE REPORT TO TRIPP ALVAREZ.
--- NOTE | 2017-12-30 14:10 | NUR ---
CALLED THE PATIENT'S SON, MARKY, I DID SPEAK TO HIM. I LET HIM KNOW THE PATIENT WAS BEING TRANSFERRED BACK TO [facility] TODAY AROUND 1500.
--- NOTE | 2017-12-30 15:21 | NUR ---
DISCHARGE INSTRUCTIONS GIVEN, PT UNABLE TO COMPREHEND AND UNABLE TO SIGN DISCHARGE PAPERWORK. IV ON THE RIGHT FA LEFT IN PLACE TO CONTINUE TO IV ANTIBIOTICS AT THE FACILITY. PT HAS NO ROMERO IN PLACE. PT STABLE UPON DISCHARGE.
[2017-12-31] MEDS ORDERED: ALENDRONATE SODIUM 70 MG TAB PO SCH ×2 (06:00→09:00)
== END 2017-12-30 15:21 | disposition home or self-care (01) | DRG 53 ==
LOC: MED 17:39 → MTU 21:26
PROVIDERS: ADMIT Family Medicine; ATTEND Family Medicine
DX: G40.89 Other seizures (principal); E44.0 Moderate protein-calorie malnutrition; F03.90 Unspecified dementia, unspecified severity, without behavioral disturbance, psychotic disturbance, mood disturbance, and anxiety; I50.9 Heart failure, unspecified; E11.649 Type 2 diabetes mellitus with hypoglycemia without coma; I11.0 Hypertensive heart disease with heart failure; D64.9 Anemia, unspecified; E11.9 Type 2 diabetes mellitus without complications; N39.0 Urinary tract infection, site not specified; R13.10 Dysphagia, unspecified; D72.829 Elevated white blood cell count, unspecified; J44.9 Chronic obstructive pulmonary disease, unspecified; Z68.1 Body mass index [BMI] 19.9 or less, adult; Z86.73 Personal history of transient ischemic attack (TIA), and cerebral infarction without residual deficits; Z93.1 Gastrostomy status; K21.9 Gastro-esophageal reflux disease without esophagitis
CPT/HCPCS: 36415; 70450; 71045; 80048; 80053; 81001; 81003; 82550; 82553; 82948; 83605; 83880; 84484; 85025; 85610; 85730; 87040; 87081; 87086; 87186; 93005; 96361; 96365; 96375; 99285; C1758; J0696; J1650; J1815; J2060; J7030; J7060; J7512; Q0092

== ENCOUNTER 2018-03-25 13:56 | Inpatient (IN) | payer MEDICAID, MEDICARE ==
[~2018-03-25] VITALS: Ht 170.2 cm; Wt 59.0 kg
[~2018-03-25 13:56] MED LIST changes: +INSU100S22 SUBQ; +ROC2I IV
--- NOTE | 2018-03-25 13:56 | NUR ---
Patient XENIA BLS from SNF, transferred to bed 1. RN evaluating patient at bedside.
[2018-03-25 14:00] VITALS: BP 118/78
--- NOTE | 2018-03-25 14:10 | NUR ---
67 YO BIBA REFERR[address] BY DR JOHANNY FOREMAN FROM [facility] WITH C/O GENERALYZED WEAKNESS, LOSS OF APETITE, APHASIC. RIGID EXTREMITIES. RHONCI IN RLL. ABD SOFT NON TENDER. SKIN INTACT. PT KNODS HEAD WHEN ASKING NAME. PT FOLLOWS SIMPLE COMMANDS. WILL CONTINUED TO MONITOR HX; HTN, DM, SEIZURE, CVA, ANEMIA, ALZHEIMER'S DZ, DEMENTIA, GERD RX; ALENDRONATE NA, ARICEPT, ASA, FE, FLOVENT, HUMULIN, LABETALOL, LAMICTAL, LANTUS, METFORMIN, PREDNISONE
[2018-03-25] MEDS ORDERED: NACL 0.9% 2,000 ML IV SCH (14:18)
[2018-03-25] MEDS ORDERED: PIPERACILLIN/TAZOBACTAM 3.375 GM in DEXT 5% MINI-BAG PLUS 50 ML IV ONE (14:20)
--- NOTE | 2018-03-25 14:46 | NUR ---
ABG ATTEMPT UNABLE TO OBTAIN SOCIAL MEDIA JOB TITLES TO ATTEMPT AT A LATER TIME
[2018-03-25] MEDS ORDERED: PIPERACILLIN/TAZOBACTAM 3.375 GM VIAL IV ONE (14:57)
[2018-03-25 15:27] LABS: BASOPHILS % (AUTO) 0.3 % (0.0-2.0); EOSINOPHILS # (AUTO) 0.1 K/uL (0-0.4); EOSINOPHILS % (AUTO) 0.6 % (0.0-4.0); HEMATOCRIT 51.3 % (36-48); HEMOGLOBIN 15.4 g/dL (12.0-16.0); LYMPHOCYTES # (AUTO) 1.2 K/uL (2.5-16.5); LYMPHOCYTES % (AUTO) 10.5 % (20.5-51.1); MEAN CORPUSCULAR HEMOGLOBIN 27 pg (27-31); MEAN CORPUSCULAR HGB CONC 30 g/dL (33-37); MEAN CORPUSCULAR VOLUME 89.6 fL (80-94); MONOCYTES # (AUTO) 0.4 K/uL (0.8-1.0); MONOCYTES % (AUTO) 3.7 % (1.7-9.3); NEUTROPHILS # (AUTO) 9.5 K/uL (1.8-7.7); NEUTROPHILS % (AUTO) 84.9 % (42.2-75.2); PLATELET COUNT (AUTO) 302 K/uL (140-450); RED BLOOD CELL COUNT(AUTO) 5.73 MIL/uL (4.20-5.40); RED CELL DISTRIBUTION WIDTH 16.7 % (11.6-13.7); WHITE BLOOD COUNT (AUTO) 11.2 K/uL (4.8-10.8)
[2018-03-25 15:46] LABS: PROTHROMBIN TIME 11.8 secs (10.8-13.4)
[2018-03-25 16:00] LABS: ALBUMIN 3.5 g/dL (3.4-5.0); CARBON DIOXIDE 21.5 mmol/L (21-32); CREATININE 2.5 mg/dL (0.6-1.3); TOTAL BILIRUBIN 0.4 mg/dL (0.0-1.0)
[2018-03-25 16:10] LABS: ACETONE, SERUM NEGATIVE (NEGATIVE)
[2018-03-25 16:16] LABS: ANION GAP 22.1 (8-16); POTASSIUM 5.6 mmol/L (3.5-5.1)
[2018-03-25] MEDS ORDERED: NACL 0.45% 1,000 ML IV ONE (16:35)
[2018-03-25] MEDS ORDERED: NACL 0.45% 500 ML IV ONE (16:35)
[2018-03-25 16:44] LABS: MAGNESIUM 2.6 mg/dL (1.8-2.4)
[2018-03-25] MEDS ORDERED: INSULIN REGULAR, HUMAN 100 UNIT/ML VIAL IVP ONE (16:45)
[2018-03-25 17:03] LABS: APPEARANCE,URINE SL CLOUDY (CLEAR); BILIRUBIN,URINE NEGATIVE (NEGATIVE); BLOOD, URINE 1+ (NEGATIVE); COLOR,URINE YELLOW (YELLOW); LEUKOCYTE ESTERASE ,URINE 3+ (NEGATIVE); NITRITE, URINE NEGATIVE (NEGATIVE); PH,URINE 5.5 (5.0-9.0); UGLUCOSE TRACE (NEGATIVE)
[2018-03-25 17:22] LABS: RBC,URINE 0-5 (RARE) /HPF (0-5); WBC,URINE TOO MANY TO COUNT /HPF (0-5); YEAST,URINE Rare /HPF (None Seen)
--- NOTE | 2018-03-25 17:26 | NUR ---
Dr. Mckeon evaluating patient at bedside.
[2018-03-25] MEDS ORDERED: DEXTROSE 50% 50 ML SYR IVP PRN (17:35)
[2018-03-25] MEDS: NACL 0.45% 1,000 ML IV SCH (17:35)
--- NOTE | 2018-03-25 18:45 | NUR ---
Patient will be admitted to care of DR. ORLANDO . Admited to TELE . Will go to [id number]. Belongings list completed. Report to MAI ALMAGUER.
[2018-03-25 19:00] VITALS: BP 131/92
--- NOTE | 2018-03-25 19:00 | NUR ---
RECEIVED PT REPORT AT BEDSIDE FROM DAY CHARGE NURSE. PT IN STABLE CONDITION. PT BEING ADMITTED FOR DX OF SEPSIS. PT IS A/O X1 AND DROWSY. PT IS ON RA. IV ACCESS IN L FA 20G WITH 0.45% NS RUNNING AT 120ML/HR. IV IS PATENT AND INTACT. SKIN IS INTACT. BED LOCKED, LOW POSITION, WITH SIDE RAILS UP X2 AND PADDED. BOARD UPDATED. CALL LIGHT WITHIN REACH. WILL CONTINUE TO MONITOR PT.
--- NOTE | 2018-03-25 19:05 | NUR ---
CRITICAL LAB RESULT, LACTIC ACID 5.6, PRIMARY NURSE GENNARO NOTIFIED, DR ORLANDO PAGECharo.
--- NOTE | 2018-03-25 19:33 | NUR ---
SPOKE WITH DR. ORLANDO ABOUT PT CRITICAL LAB VALUE. WILL ORDER AM LABS TO SEE IF ANY CHANGE TO LAB VALUE.
--- NOTE | 2018-03-25 20:20 | NUR ---
BS CHECKED, 163. WILL PROVIDE INSULIN COVERAGE PER MD ORDER.
[2018-03-25] MEDS: BLOOD GLUCOSE MONITORING 1 DEV DEV FS SCH (20:21)
--- NOTE | 2018-03-25 20:49 | NUR ---
ADMINISTERED MEDICATIONS. PT TOLERATED WELL. WILL CONTINUE TO MONITOR PT.
[2018-03-25] MEDS: INSULIN LANTUS 100 UNITS/ML 10 ML VIAL SUBQ SCH (20:58)
[2018-03-25] MEDS: INSULIN LISPRO SLIDING SCALE 100 UNITS/ML VIAL SUBQ PRN (20:59)
[2018-03-25] MEDS ORDERED: NON-FORMULARY ITEM (Insulin Glargine,Hum.rec.anlog (Lantus Solostar) 20 UNIT) SUBQ SCH (21:00)
[2018-03-25] MEDS: lamoTRIgine 25 MG TAB PO SCH (21:05)
--- NOTE | 2018-03-25 22:58 | NUR ---
PT ASLEEP IN BED. NO S/SX OF DISTRESS. WILL CONTINUE TO MONITOR PT.
[2018-03-26] VITALS: BP 127/83
--- NOTE | 2018-03-26 00:07 | NUR ---
PT VS WITHIN NORMAL LIMITS. NO S/SX OF DISTRESS. WILL CONTINUE TO MONITOR PT.
[2018-03-26] MEDS: NACL 0.45% 1,000 ML IV SCH ×5 (00:15→23:27)
--- NOTE | 2018-03-26 02:25 | NUR ---
NO CHANGE IN CONDITION. WILL CONTINUE TO MONITOR PT.
[2018-03-26 04:00] VITALS: BP 149/91
--- NOTE | 2018-03-26 04:10 | NUR ---
PT ASLEEP IN BED. NO SIGNS OF DISTRESS. WILL CONTINUE TO MONITOR PT.
[2018-03-26] MEDS: BLOOD GLUCOSE MONITORING 1 DEV DEV FS SCH ×5 (05:50→20:11)
--- NOTE | 2018-03-26 06:20 | NUR ---
BS CHECKED AT 0550, 55. GAVE PT JUICE. RECHECKED BS 0620, 65. GAVE PT SNACK. WILL CONTINUE TO MONITOR.
--- NOTE | 2018-03-26 07:10 | NUR ---
ENDORSED PT TO DAY SHIFT NURSE FOR CONTINUITY OF CARE. PT IN STABLE CONDITION.
--- NOTE | 2018-03-26 07:11 | NUR ---
RECEIVED PT REPORT AT BEDSIDE FROM TAILOR WOMEN'S GARMENT ALTERATION NURSE. PT IN STABLE CONDITION, RESTING. PT IS A/O X1 AND DROWSY. PT IS ON RA. IV ACCESS IN L FA 20G WITH 0.45% NS RUNNING AT 150ML/HR. IV IS PATENT AND INTACT. SKIN IS INTACT. SAFETY PRECAUTION IN PLACE, BED LOCKED, LOW POSITION, WITH SIDE RAILS UP X2 AND PADDED FOR SEIZURE PRECAUTION. BED ALARM ON. BOARD UPDATED. CALL LIGHT WITHIN REACH. WILL CONTINUE TO MONITOR PT. Addendum: 03/26/18 at 1136 by Ag Graahm RN PATIENT HAS ROMERO CATHETER DRAINING TO GRAVITY, 250 ML OF CLOUDY YELLOW URINE EMPTIED.
[2018-03-26 07:41] LABS: BASOPHILS % (AUTO) 0.3 % (0.0-2.0); EOSINOPHILS # (AUTO) 0.2 K/uL (0-0.4); EOSINOPHILS % (AUTO) 1.8 % (0.0-4.0); HEMATOCRIT 42.9 % (36-48); HEMOGLOBIN 12.9 g/dL (12.0-16.0); LYMPHOCYTES % (AUTO) 16.8 % (20.5-51.1); MEAN CORPUSCULAR HEMOGLOBIN 27 pg (27-31); MEAN CORPUSCULAR HGB CONC 30 g/dL (33-37); MEAN CORPUSCULAR VOLUME 90.4 fL (80-94); MONOCYTES # (AUTO) 0.8 K/uL (0.8-1.0); NEUTROPHILS # (AUTO) 8.9 K/uL (1.8-7.7); NEUTROPHILS % (AUTO) 74.1 % (42.2-75.2); PLATELET COUNT (AUTO) 252 K/uL (140-450); RED BLOOD CELL COUNT(AUTO) 4.75 MIL/uL (4.20-5.40); RED CELL DISTRIBUTION WIDTH 16.2 % (11.6-13.7); WHITE BLOOD COUNT (AUTO) 12.1 K/uL (4.8-10.8)
[2018-03-26 07:46] LABS: ANION GAP 17.8 (8-16); CARBON DIOXIDE 21.1 mmol/L (21-32); CREATININE 1.8 mg/dL (0.6-1.3); POTASSIUM 3.9 mmol/L (3.5-5.1)
[2018-03-26 08:00] VITALS: BP 116/81
[2018-03-26] MEDS: lamoTRIgine 25 MG TAB PO SCH ×2 (08:08→20:03)
[2018-03-26] MEDS: ENOXAPARIN 30 MG/0.3 ML SYR SUBQ SCH (08:24)
--- NOTE | 2018-03-26 08:24 | NUR ---
ORDERED MEDICATIONS GIVEN. PATIENT TOLERATED THEM WELL. NO SIGNS OF DISTRESS OR SOB NOTED ON ROOM AIR. VITAL SIGNS WNL. PATIENT DENIES PAIN BY SHAKING HER HEAD. SAFETY AND SEIZURE PRECAUTIONS IN PLACE, CALL LIGHT WITHIN REACH, WILL CONTINUE TO MONITOR PATIENT.
--- NOTE | 2018-03-26 09:14 | NUR ---
PATIENT HAS BEEN SCREENED AND CATEGORIZED HIGH NUTRITION RISK. PATIENT WILL BE SEEN WITHIN 1-2 DAYS OF ADMISSION. 03/26/18 03/27/[address]
--- NOTE | 2018-03-26 10:15 | NUR ---
AARON SPEAR IN TO CHANGE AND REPOSITION PATIENT. PATIENT COMBATIVE. SAFETY AND SEIZURE PRECAUTION IN PLACE, CALL LIGHT WITHIN REACH, WILL CONTINUE TO MONITOR PATIENT.
--- NOTE | 2018-03-26 11:30 | NUR ---
BLOOD SUGAR 143, NO COVERAGE NEEDED. PATIENT TOLERATED PROCEDURE WELL. NO SIGNS OF DISTRESS NOTED. WILL CONTINUE TO MONITOR PATIENT.
[2018-03-26 12:00] VITALS: BP 132/91
--- NOTE | 2018-03-26 12:05 | NUR ---
SISTER OLLIE AND COUVIMAL PARRA IN TO SEE THE PATIENT. PATIENT ENJOYING THEIR VISIT. WILL CONTINUE TO MONITOR PATIENT.
--- NOTE | 2018-03-26 13:35 | NUR ---
03/26/18 RD INITIAL ASSESSMENT COMPLETED PLEASE REFER TO NUTRITION ASSESSMENT UNDER CARE ACTIVITY FOR ESTIMATED NUTRITIONAL NEEDS. CONTINUE SOFT DIET TOLERATED 2. WHEN PO INTAKE MEET OR EXCEED 75%, CONSIDER CCHO 60GM, CARDIAC DIET 3. RECOMMEND GLUCERNA WITH MEALS TID 4. RD TO FOLLOW-UP 2-3 DAYS, HIGH RISK ALEE SCHAEFFER RD
--- NOTE | 2018-03-26 14:12 | NUR ---
PATIENT SLEEPING COMFORTABLY, NO SIGNS OF DISTRESS OR SOB NOTED ON ROOM AIR. WILL CONTINUE TO MONITOR PATIENT.
[2018-03-26 16:00] VITALS: BP 120/71
--- NOTE | 2018-03-26 16:45 | NUR ---
BLOOD SUGAR 190, COVERAGE GIVEN. VS WNL. PATIENT RESTING IN BED NO SIGNS OF DISTRESS OR SOB NOTED ON ROOM AIR. SAFETY PRECAUTION IN PLACE, CALL LIGHT WITHIN REACH, WILL CONTINUE TO MONITOR PATIENT.
[2018-03-26] MEDS: INSULIN LISPRO SLIDING SCALE 100 UNITS/ML VIAL SUBQ PRN (17:12)
--- NOTE | 2018-03-26 19:20 | NUR ---
REPORT GIVEN TO VISUAL AND STOCK ASSOCIATE NURSE AT BEDSIDE FOR CONTINUITY OF CARE. PATIENT IN STABLE CONDITION.
--- NOTE | 2018-03-26 19:21 | NUR ---
REPORT RECEIVED FROM AM NURSE AT BEDSIDE. PT IN STABLE CONDITION. AAOX2. INTRODUCED SELF AND BOARD UPDATED. VS TAKEN AND STABLE. PT ON CONTACT ISOLATION AND HAS A ROMERO DRAINING. IV SITE PATENT AND INTACT. SKIN WARM, DRY, AND INTACT WITH NO OPEN WOUNDS. PT LAYING IN BED SUPINE AT AN ANGLE WITH HOB ELEVATED BY 45 DEGREES. BED LOCKED IN LOW POSITION. CALL HIGGINS WITHIN REACH.
[2018-03-26 20:00] VITALS: BP 119/75
--- NOTE | 2018-03-26 20:03 | NUR ---
PM MEDS GIVEN. PT TOLERATED WELL. BS 92 NO INSULIN COVERAGE NEEDED. PT HAS 20 UNITS OF LANTUS DUE. MEDICATION IS NON ADMIN DUE TO NORMAL BLOOD SUGAR. PT BS THIS MORNING AT 0730 03/26 WAS 55. PT DID NOT EAT MUCH OF HER DINNER SO LANTUS WILL BE HELD.
[2018-03-26] MEDS: INSULIN LANTUS 100 UNITS/ML 10 ML VIAL SUBQ SCH (20:11)
--- NOTE | 2018-03-26 23:15 | NUR ---
ATTEMPTS TO TAKE PT VS. VS STABLE. PT SEEMS A LITTLE AGITATED. WHEN TRYING TO PUT ON THE O2 SENSOR PT PULLED HAND AWAY. WHEN I TOLD HER I NEED TO PUT THIS ON TO CHECK HER O2 SATURATION AND TRIED TO PUT IT ON AGAIN SHE AGAIN PULLED HER ARM AWAY.
[2018-03-27] VITALS: BP 124/73
--- NOTE | 2018-03-27 01:30 | NUR ---
PT SLEEPING COMFORTABLY SUPINE AT AN ANGLE. NO S/S OF DISTRESS. WILL CONTINUE TO MONITOR.
--- NOTE | 2018-03-27 03:30 | NUR ---
ATTEMPTED TO GET VS. PT REFUSED BY PULLING AWAY.
--- NOTE | 2018-03-27 04:46 | NUR ---
REPORT GIVEN TO NANCY ALMAGUER. PT IN STABLE CONDITION.
--- NOTE | 2018-03-27 04:47 | NUR ---
PATIENT REPORT RECEIVED FROM TRIPP ABBOTT FOR CONTINUITY OF CARE. PATIENT IS IN STABLE CONDITION
[2018-03-27] MEDS: BLOOD GLUCOSE MONITORING 1 DEV DEV FS SCH ×2 (05:24→11:30)
--- NOTE | 2018-03-27 05:30 | NUR ---
CHECKED PATIENT'S BLOOD SUGAR. BLOOD SUGAR IS 69. GAVE PATIENT ORANGE JUICE MIXED WITH SUGAR. WILL RECHECK LATER. NO SIGNS AND SYMPTOMS OF DISTRESS NOTED.
--- NOTE | 2018-03-27 06:19 | NUR ---
PATIENTS BLOOD SUGAR NOW 74
--- NOTE | 2018-03-27 07:08 | NUR ---
PATIENT REPORT GIVEN TO MORNING NURSE AT BEDSIDE. PATIENT IS IN STABLE CONDITION
--- NOTE | 2018-03-27 07:09 | NUR ---
RECEIVED REPORT FROM PM NURSE AT THE BEDSIDE. 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 PT AOX1-2. DOESNT SPEAK TOO MUCH. DENIES ANY PAIN AT THIS TIME. PT IS FALL RISK, SEIZURE PRECAUTION IN PLACE. PT HAS ROMERO CATHETER, IV ON LFT HAND 20N G. 0.45 NS INFUSING @ 150 ML/HR. INTRODUCED SELF AND UPDATED BOARD. VS NOTED. O2 SAT 98 % ON RA. NO SIGN OF DISTRESS. WILL CONTINUE TO MONITOR PT.
[2018-03-27 07:16] LABS: BASOPHILS % (AUTO) 0.3 % (0.0-2.0); EOSINOPHILS # (AUTO) 0.2 K/uL (0-0.4); EOSINOPHILS % (AUTO) 2.4 % (0.0-4.0); HEMATOCRIT 36.8 % (36-48); HEMOGLOBIN 11.4 g/dL (12.0-16.0); LYMPHOCYTES # (AUTO) 1.5 K/uL (2.5-16.5); MEAN CORPUSCULAR HEMOGLOBIN 27 pg (27-31); MEAN CORPUSCULAR HGB CONC 31 g/dL (33-37); MONOCYTES # (AUTO) 0.6 K/uL (0.8-1.0); MONOCYTES % (AUTO) 6.4 % (1.7-9.3); NEUTROPHILS # (AUTO) 7.1 K/uL (1.8-7.7); NEUTROPHILS % (AUTO) 74.9 % (42.2-75.2); PLATELET COUNT (AUTO) 190 K/uL (140-450); RED BLOOD CELL COUNT(AUTO) 4.17 MIL/uL (4.20-5.40); RED CELL DISTRIBUTION WIDTH 15.2 % (11.6-13.7); WHITE BLOOD COUNT (AUTO) 9.5 K/uL (4.8-10.8)
[2018-03-27 07:37] LABS: ALBUMIN 2.5 g/dL (3.4-5.0); CARBON DIOXIDE 19.3 mmol/L (21-32); POTASSIUM 3.3 mmol/L (3.5-5.1); TOTAL BILIRUBIN 0.4 mg/dL (0.0-1.0)
[2018-03-27 07:52] VITALS: BP 124/75
[2018-03-27] MEDS: NACL 0.45% 1,000 ML IV SCH (09:35)
[2018-03-27] MEDS: ENOXAPARIN 30 MG/0.3 ML SYR SUBQ SCH (09:45)
[2018-03-27] MEDS: lamoTRIgine 25 MG TAB PO SCH (09:46)
--- NOTE | 2018-03-27 11:45 | NUR ---
GOT CALL FROM LAB, PT POSITIVE FOR MRSA IN NARES AND MDRO FOR ECOLI IN URINE. DR JOHANNY NDIAYEOFIED, ASKED THE PT BUN AND CREATININE LEVEL. INFORMED THAT BUN 18, CREATININE 1.0. INFORMED HIM ABOUT THE SENSITIVITY OF THE ABX WELL. DR ORLANDO ORDER FOR THE DC PT TO [facility]. PT WILL BE IN CEFTRIAXONE ABX IV FOR 7 DAYS X OD FROM 03/28/2018. AND WILL BE ON 0.45 NS @100 ML/HR FOR THREE MORE DAYS. CHARGE NURSE NOTIFIED . CN TO PUT ORDER FOR THE PT . WILL CONTINUE TO MONITOR THE PT.
[2018-03-27 12:00] VITALS: BP 111/71
[2018-03-27] MEDS ORDERED: MUPIROCIN CA NASAL 2% 1GM TUBE NS SCH (13:00)
[2018-03-27] MEDS ORDERED: CHLORHEXADINE GLUC 2% CLOTH TP SCH (13:00)
--- NOTE | 2018-03-27 13:33 | NUR ---
Black Top Spreader Machine Operator Note: I faxed patient's medical information to [facility]. Per patient's nurse patient is on isolation for MRSA nares, Ecoli urine, and MDRO urine. Per [facility] , patient may go to room 11B, aware of isolation, accepting physician is , want patient to be transfer to their facility after 4pm.
--- NOTE | 2018-03-27 13:50 | NUR ---
PT ADMINISTERED BACTROBAN OINTMENT INSIDE HER NOSE FOR THE MRSA NARES AND WAS GIVEN 2% CHLORHEXIDINE CLOTH BATH. PT IN STABLE STATE. WILL CONTINUE TO MONITOR PT.
[2018-03-27] MEDS ORDERED: ROC2I IV (14:54)
--- NOTE | 2018-03-27 15:00 | NUR ---
CALLED [facility] AND GAVE REPORT TO MONIQUE LIZ. PH #[phone]. INFORMED THAT PT WILL BE TRANSFERRED AROUND 1530 TO 1600. ASKED HIM TO CALL BACK IF HE HAS ANY QUESTION. VERBALIZED UNDERSTANDING.
[2018-03-27] MEDS ORDERED: ROC2I IJ (15:04)
[2018-03-27] MEDS ORDERED: [UNRECOGNIZED DRUG - OTHER] IV (15:08)
--- NOTE | 2018-03-27 15:40 | NUR ---
D/C [facility] FROM PT. HAT BLOCKING OPERATOR AT THE BEDSIDE . 150 ML IN [facility] CATHETER. URINE COLOR CLEAN , NO ODOR. NO BLEEDING OBSERVED. PT TOLERATED WELL. PT TO GO WITH IV SITE ON LFT FA 20G. IV SITE FLUSHING WELL. ALL THE D/C PAPER READY AND IN FOLDER. CHARGE NURSE AWARE . WILL CONTINUE TO MONITOR PT.
[2018-03-27 16:00] VITALS: BP 130/80
--- NOTE | 2018-03-27 16:45 | NUR ---
PT LEFT THE HOSPITAL AT 1645 WITH [facility]. GAVE BRIEF REPORT TO TRANSPORT PERSONNEL. PT IN STABLE CONDITION AT THE TIME OF LEAVING HOSPITAL. PT WAS SENT WITH HER DISCHARGE DOCUMENTS . ALL BELONGINGS WERE SENT WITH PT.
== END 2018-03-27 16:45 | DRG 720 ==
LOC: MED 13:56 → MTU 17:50
PROVIDERS: ADMIT Family Medicine; ATTEND Family Medicine
DX: A41.9 Sepsis, unspecified organism (principal); G93.40 Encephalopathy, unspecified; N17.9 Acute kidney failure, unspecified; E87.2 Acidosis; E11.65 Type 2 diabetes mellitus with hyperglycemia; E86.0 Dehydration; J44.9 Chronic obstructive pulmonary disease, unspecified; I11.0 Hypertensive heart disease with heart failure; I50.9 Heart failure, unspecified; F03.90 Unspecified dementia, unspecified severity, without behavioral disturbance, psychotic disturbance, mood disturbance, and anxiety; K21.9 Gastro-esophageal reflux disease without esophagitis; N39.0 Urinary tract infection, site not specified; Z86.73 Personal history of transient ischemic attack (TIA), and cerebral infarction without residual deficits; Z79.82 Long term (current) use of aspirin; Z79.899 Other long term (current) drug therapy; Z79.4 Long term (current) use of insulin; Z93.1 Gastrostomy status
CPT/HCPCS: 36415; 36600; 51702; 71045; 80048; 80053; 81001; 82009; 82550; 82553; 82803; 82948; 83605; 83735; 83874; 83880; 84484; 85025; 85610; 85730; 87040; 87081; 87086; 87186; 93005; 96361; 96365; 96375; 99291; J0696; J1650; J1815; J2543; J7060; Q0092

== ENCOUNTER 2018-06-18 08:48 | Inpatient (IN) | payer MEDICAID, MEDICARE ==
[~2018-06-18] VITALS: Ht 170.2 cm; Wt 56.7 kg
[2018-06-18 08:48] VITALS: BP 117/84
[~2018-06-18 08:48] MED LIST changes: -FERROUS SULFATE GT; +FERROUS SULFATE PO; -MULT-153 GT; +MULT-153 PO; +ROC2I IJ; +[UNRECOGNIZED DRUG - OTHER] IV
--- NOTE | 2018-06-18 08:48 | NUR ---
PT BIBA BLS TO BED 7
--- NOTE | 2018-06-18 08:56 | NUR ---
Patient being evaluated by physician at bedside.
[2018-06-18] MEDS ORDERED: NACL 0.9% 1,000 ML IV SCH (09:04)
--- NOTE | 2018-06-18 09:26 | NUR ---
XRAY AT BEDSIDE
[2018-06-18] MEDS ORDERED: cefTRIAXone 1,000 MG VIAL ONE (09:37)
[2018-06-18 09:55] LABS: PROTHROMBIN TIME 10.4 secs (10.8-13.4)
[2018-06-18 09:59] LABS: BASOPHILS # (AUTO) 0.1 K/uL (0.00-0.22); BASOPHILS % (AUTO) 0.6 % (0.0-2.0); EOSINOPHILS # (AUTO) 0.2 K/uL (0-0.4); EOSINOPHILS % (AUTO) 1.7 % (0.0-4.0); HEMATOCRIT 49.7 % (36-48); HEMOGLOBIN 15.3 g/dL (12.0-16.0); LYMPHOCYTES # (AUTO) 2.3 K/uL (2.5-16.5); LYMPHOCYTES % (AUTO) 16.6 % (20.5-51.1); MEAN CORPUSCULAR HEMOGLOBIN 28 pg (27-31); MEAN CORPUSCULAR HGB CONC 31 g/dL (33-37); MEAN CORPUSCULAR VOLUME 90.7 fL (80-94); MONOCYTES # (AUTO) 1.3 K/uL (0.8-1.0); MONOCYTES % (AUTO) 9.3 % (1.7-9.3); NEUTROPHILS # (AUTO) 9.9 K/uL (1.8-7.7); NEUTROPHILS % (AUTO) 71.8 % (42.2-75.2); PLATELET COUNT (AUTO) 233 K/uL (140-450); RED BLOOD CELL COUNT(AUTO) 5.48 MIL/uL (4.20-5.40); RED CELL DISTRIBUTION WIDTH 15.1 % (11.6-13.7)
[2018-06-18 10:03] LABS: ALBUMIN 3.2 g/dL (3.4-5.0); ANION GAP 19.5 (8-16); CARBON DIOXIDE 22.9 mmol/L (21-32); CREATININE 2.3 mg/dL (0.6-1.3); POTASSIUM 4.4 mmol/L (3.5-5.1); TOTAL BILIRUBIN 0.5 mg/dL (0.0-1.0)
--- NOTE | 2018-06-18 10:10 | NUR ---
PT RESTING IN BED, IN NO APPEARENT DISTRESS WILL CONTINUE TO MONITOR
[2018-06-18 10:13] LABS: WHITE BLOOD COUNT (AUTO) 13.8 K/uL (4.8-10.8)
[2018-06-18] MEDS: FLUCONAZOLE 100 MG/NS PREMIX 50 ML IV SCH ×2 (10:13→10:16)
--- NOTE | 2018-06-18 10:19 | NUR ---
NO CATH PER DR RIVERA
--- NOTE | 2018-06-18 10:50 | NUR ---
Patient will be admitted to care of dr cisneros . Admited to tele. Will go to room 115. Belongings list completed. Report to agatha clayton .
--- NOTE | 2018-06-18 10:50 | NUR ---
PT TAKEN TO FLOOR BY [facility] AND EMT GAMALIEL
--- NOTE | 2018-06-18 11:10 | NUR ---
PATIENT WAS TRANSFERRED FROM ER IN [facility]. REPORT WAS GIVEN AT BEDSIDE. VS WAS TAKEN, MRSA WAS SWABBED. IVF WAS HUNG. LAND CLEARER WAS PLACED. PATIENT AWAKE, APHASIC, FOLLOW COMMAND. RESPIRATION EVEN, UNLABOR ON ROOM AIR. SKIN DRY AND WARM. IV PATENT AND INTACT. PATIENT WAS ORIENTED TO ROOM, STAFF, AND CALL LIGHT . PLAN OF CARE WAS DISCUSSED WITH PATIENT. BED AT LOW POSITION, SIDE RAILS UP. CALL LIGHT WITHIN REACH
[2018-06-18 11:15] VITALS: BP 126/85
--- NOTE | 2018-06-18 14:20 | NUR ---
PATIENT WAS SLEEPING COMFORTABLY. RESPIRATION EVEN, UNLABOR ON ROOM AIR. NO DISTRESS NOTED AT THIS TIME
[2018-06-18] MEDS: NACL 0.45% 1,000 ML IV SCH ×2 (14:26→22:55)
[2018-06-18] MEDS ORDERED: INFLUENZA VIRUS VACCINE QUAD 0.5 ML SYR IMVAC PRN (14:30)
--- NOTE | 2018-06-18 16:10 | NUR ---
PATIENT WAS SLEEPING COMFORTABLY, RESPONSIVE TO NAME. RESPIRATION EVEN, UNLABOR ON ROOM AIR. FLACC 0. NO DISTRESS NOTED AT THIS TIME. CALL LIGHT WITHIN REACH.
[2018-06-18 16:30] VITALS: BP 127/83
[2018-06-18] MEDS: BLOOD GLUCOSE MONITORING 1 DEV DEV FS SCH ×2 (16:46→21:00)
[2018-06-18] MEDS ORDERED: hydrOXYzine HCL 25 MG TAB GT PRN (17:00)
--- NOTE | 2018-06-18 18:28 | NUR ---
PATIENT WAS EATING DINNER COMFORTABLY. RESPIRATION EVEN, UNLABOR ON ROOM AIR. IV PATENT AND INTACT. NO DISTRESS NOTED AT THIS TIME. CALL LIGHT WITHIN REACH.
--- NOTE | 2018-06-18 19:22 | NUR ---
ENDORSEMENT GIVEN TO THE COMBAT RIFLE CREWMEMBER NURSE. PATIENT IS STABLE AT THIS TIME.
--- NOTE | 2018-06-18 19:23 | NUR ---
RECEIVED REPORT FROM DAY SHIFT NURSE DIANNE-RN AT BEDSIDE. PT RESTING IN BED, AOX1-APHASIC, ON ROOM AIR WITH LEFT AC #20G RUNNING NS 0.45% @ 100ML/HR. INCONTINENT-SKIN INTACT. DISCUSSED PLAN OF CARE. NO S/S OF RESPIRATORY DISTRESS OR DISCOMFORT NOTED AT THIS TIME. BED IN LOWEST POSITION, BED BREAKS ON, BOTH SIDE RAILS UP. FALL PRECAUTIONS IN PLACE. SEIZURE PRECAUTIONS IN PLACE. BEDSIDE TABLE AND CALL LIGHT ARE WITHIN REACH. WILL CONTINUE TO MONITOR.
[2018-06-18 20:00] VITALS: BP 103/62
--- NOTE | 2018-06-18 20:00 | NUR ---
VITAL SIGNS TAKEN AND TOLERATED WELL. NO S/S OF RESPIRATORY DISTRESS OR DISCOMFORT NOTED AT THIS TIME. WILL CONTINUE TO MONITOR.
--- NOTE | 2018-06-18 20:00 | NUR ---
BLOOD GLUCOSE 238- WILL ADMINISTER INDULIN COVERAGE.
[2018-06-18] MEDS ORDERED: metFORMIN 500 MG TAB PO SCH ×2 (21:00)
[2018-06-18] MEDS: lamoTRIgine 25 MG TAB PO SCH (21:00)
[2018-06-18] MEDS: INSULIN LISPRO SLIDING SCALE 100 UNITS/ML VIAL SUBQ PRN (21:03)
[2018-06-18] MEDS: INSULIN LANTUS 100 UNITS/ML 10 ML VIAL SUBQ SCH (21:04)
--- NOTE | 2018-06-18 21:04 | NUR ---
SCHEDULED MEDICATION LANTUS GIVEN AND TOLERATED WELL. INSULIN COVERAGE GIVEN AND TOLERATED WELL. NO S/S OF RESPIRATORY DISTRESS OR DISCOMFORT NOTED AT THIS TIME. WILL CONTINUE TO MONITOR.
--- NOTE | 2018-06-18 21:33 | NUR ---
SCHEDULED MEDICATION LAMICTAL UNABLE TO BE GIVEN DUE TO NOT BEING AVAILABLE. CHECKED PIXIS, NARCOTICS BOX, YELLOW BIN, AND TRIED TO OVERRIDE HOWEVER I WAS UNABLE TO OBTAIN MEDICATION. CHARGE NURSE MAYITO ALSO UNABLE TO OBTAIN MEDICATION. PLATFORM SUPERVISOR SCOTT WAS CALLED AND WAS ALSO UNABLE TO OBTAIN MEDICATION.
--- NOTE | 2018-06-18 22:00 | NUR ---
PT SLEEPING IN BED. NO S/S OF RESPIRATORY DISTRESS OR DISCOMFORT NOTED AT THIS TIME. WILL CONTINUE TO MONITOR.
[2018-06-19] VITALS: BP 115/78
--- NOTE | 2018-06-19 | NUR ---
VITAL SIGNS TAKEN AND TOLERATED WELL. NO S/S OF RESPIRATORY DISTRESS OR DISCOMFORT NOTED AT THIS TIME. WILL CONTINUE TO MONITOR.
[2018-06-19] MEDS: NACL 0.45% 1,000 ML IV SCH ×2 (01:30→14:55)
--- NOTE | 2018-06-19 01:30 | NUR ---
NEW IVF BAG HUNG. PT SLEEPING AT THIS TIME. NO S/S OF RESPIRATORY DISTRESS OR DISCOMFORT NOTED AT THIS TIME. WILL CONTINUE TO MONITOR.
--- NOTE | 2018-06-19 02:00 | NUR ---
PT CONTINUES TO SLEEP. NO S/S OF RESPIRATORY DISTRESS OR DISCOMFORT NOTED AT THIS TIME. WILL CONTINUE TO MONITOR.
[2018-06-19 04:00] VITALS: BP 118/82
--- NOTE | 2018-06-19 04:00 | NUR ---
VITAL SIGNS TAKEN AND TOLERATED WELL. NO S/S OF RESPIRATORY DISTRESS OR DISCOMFORT NOTED AT THIS TIME. WILL CONTINUE TO MONITOR.
--- NOTE | 2018-06-19 06:00 | NUR ---
BLOOD GLUCOSE 93-NO INSULIN COVERAGE NEEDED. PT RESTING IN BED. NO S/S OF RESPIRATORY DISTRESS OR DISCOMFORT NOTED AT THIS TIME. WILL CONTINUE TO MONITOR.
[2018-06-19] MEDS: BLOOD GLUCOSE MONITORING 1 DEV DEV FS SCH ×4 (06:07→19:50)
--- NOTE | 2018-06-19 07:35 | NUR ---
RECEIVED REPORT FROM BUS COMPANY MANAGER NURSE, PT IS RESTING IN BED, SEMI FOWLERS POSITION, AAOX1, APHASIC, ON ROOM AIR, SKIN IS INTACT, IV IS ON THE LEFT AC, PATENT, INTACT, FLUSHING WELL, PT HAS OLD ABDOMINAL SCAR FROM HISTORY OF G TUBE, NO S/S OF RESPIRATORY DISTRESS OR DISCOMFORT NOTED, DISCUSSED PLAN OF CARE WITH PT, PT UNABLE TO VERBALIZE UNDERSTANDING, SAFETY/FALL/SEIZURE PRECAUTIONS ARE IN PLACE, CALL LIGHT WITHIN REACH, WILL CONTINUE TO MONITOR.
--- NOTE | 2018-06-19 07:39 | NUR ---
ENDORSED PT CARE TO DAY SHIFT NURSE ABBE FOR CONTINUITY OF CARE.
[2018-06-19 08:00] VITALS: BP 121/74
--- NOTE | 2018-06-19 08:42 | NUR ---
PATIENT HAS BEEN SCREENED AND CATEGORIZED HIGH NUTRITION RISK. PATIENT WILL BE SEEN WITHIN 1-2 DAYS OF ADMISSION. 06/19/[address]
[2018-06-19] MEDS: lamoTRIgine 25 MG TAB PO SCH ×2 (09:22→20:32)
--- NOTE | 2018-06-19 09:22 | NUR ---
DUE MEDICATION GIVEN, PT TOLERATED WELL, CALL LIGHT IS WITHIN REACH, WILL CONTINUE TO MONITOR.
[2018-06-19] MEDS: INSULIN LISPRO SLIDING SCALE 100 UNITS/ML VIAL SUBQ PRN ×2 (11:41→17:02)
[2018-06-19 12:00] VITALS: BP 113/74
--- NOTE | 2018-06-19 12:15 | NUR ---
PT SLEEPING IN BED AT THIS TIME, NO S/S OF DISTRESS OR DISCOMFORT NOTED.
--- NOTE | 2018-06-19 14:00 | NUR ---
PT IS RESTING IN BED AT THIS TIME, NO S/S OF DISTRESS OR DISCOMFORT NOTED, CALL LIGHT IS WITHIN REACH.
--- NOTE | 2018-06-19 14:13 | NUR ---
06/19/18 RD INITIAL ASSESSMENT COMPLETED PLEASE REFER TO NUTRITION ASSESSMENT UNDER CARE ACTIVITY FOR ESTIMATED NUTRITIONAL NEEDS. 1. CONTINUE CCHO 60 GM MECH SOFT DIET TOLERATED 2. ENCOURAGE INCREASING PO INTAKE 3. IF PO INTAKE CONTINUES BELOW 50% RECOMMEND GLUCERNA BID 4. RD TO FOLLOW-UP 2-3 DAYS, HIGH RISK ALEE SCHAEFFER RD
[2018-06-19] MEDS: MUPIROCIN CA NASAL 2% 1GM TUBE NS SCH (14:55)
[2018-06-19] MEDS: CHLORHEXADINE GLUC 2% CLOTH TP SCH (14:56)
[2018-06-19 16:00] VITALS: BP 96/64
--- NOTE | 2018-06-19 16:20 | NUR ---
PT REPOSITIONED, ALL NEEDS ARE MET AT THIS TIME, CALL LIGHT IS WITHIN REACH.
--- NOTE | 2018-06-19 18:10 | NUR ---
PT IS RESTING IN BED, SEMI FOWLERS POSITION, NO S/S OF DISTRESS OR DISCOMFORT NOTED, CALL LIGHT WITHIN REACH.
--- NOTE | 2018-06-19 19:05 | NUR ---
RECEIVED REPORT FROM DAY SHIFT NURSE, JOSE, AT PT BEDSIDE. PT IN STABLE CONDITION. PT IS AAOX1. PT ABLE TO NOD WHEN ASKED SOME QUESTIONS BUT RARELY RESPONDS VERBALLY. PT IS ON RA WITH EVEN AND UNLABORED RESPIRATIONS. IV ACCESS IN L AC 20G WITH IVF RUNNING PER MD ORDERS. IV IS PATENT AND INTACT. PT SKIN IS INTACT. PT HAS L SIDED WEAKNESS. SEIZURE AND FALL PRECAUTIONS ARE IN PLACE. BED IS LOCKED, LOW POSITION WITH SIDE RAILS UP X2. CALL LIGHT IS WITHIN REACH. BOARD UPDATED. WILL CONTINUE TO MONITOR PT.
--- NOTE | 2018-06-19 19:05 | NUR ---
ENDORSED PT TO PACKAGE DESIGNER NURSE FOR CONTINUITY OF CARE. PT STABLE AT THIS TIME.
--- NOTE | 2018-06-19 19:24 | NUR ---
BS CHECKED, 142. NO COVERAGE NEEDED PER MD ORDERS. VS ARE WITHIN NORMAL LIMITS. PT REQUESTING MORE WATER, GIVEN. ALL OTHER NEEDS ARE MET AT THIS TIME. WILL CONTINUE TO MONITOR.
[2018-06-19 20:00] VITALS: BP 126/84
--- NOTE | 2018-06-19 20:32 | NUR ---
ADMINISTERED SCHEDULED MEDICATIONS. PT TOLERATED WELL. ALL NEEDS ARE MET AT THIS TIME. WILL CONTINUE TO MONITOR.
[2018-06-19] MEDS: INSULIN LANTUS 100 UNITS/ML 10 ML VIAL SUBQ SCH (20:34)
--- NOTE | 2018-06-19 23:00 | NUR ---
PT ASLEEP IN BED. NO SIGNS OR SYMPTOMS OF DISTRESS. WILL CONTINUE TO MONITOR.
[2018-06-20] VITALS: BP 121/75
[2018-06-20] MEDS: NACL 0.45% 1,000 ML IV SCH ×2 (01:03→14:55)
--- NOTE | 2018-06-20 01:03 | NUR ---
NEW BAG OF IVF STARTED. PT RESTING COMFORTABLY IN BED. NO SIGNS OR SYMPTOMS OF DISTRESS. WILL CONTINUE TO MONITOR.
--- NOTE | 2018-06-20 03:10 | NUR ---
PT ASLEEP IN BED. NO SIGNS OR SYMPTOMS OF DISTRESS. WILL CONTINUE TO MONITOR.
[2018-06-20 04:00] VITALS: BP 112/85
--- NOTE | 2018-06-20 05:11 | NUR ---
NO CHANGE IN CONDITION. PT HAS NO SIGNS OR SYMPTOMS OF DISTRESS. WILL CONTINUE TO MONITOR.
[2018-06-20] MEDS: BLOOD GLUCOSE MONITORING 1 DEV DEV FS SCH ×3 (06:10→16:57)
[2018-06-20 06:58] LABS: BASOPHILS % (AUTO) 0.4 % (0.0-2.0); EOSINOPHILS # (AUTO) 0.1 K/uL (0-0.4); EOSINOPHILS % (AUTO) 1.1 % (0.0-4.0); HEMATOCRIT 37.8 % (36-48); HEMOGLOBIN 11.8 g/dL (12.0-16.0); LYMPHOCYTES # (AUTO) 1.6 K/uL (2.5-16.5); LYMPHOCYTES % (AUTO) 18.6 % (20.5-51.1); MEAN CORPUSCULAR HEMOGLOBIN 28 pg (27-31); MEAN CORPUSCULAR HGB CONC 31 g/dL (33-37); MEAN CORPUSCULAR VOLUME 89.8 fL (80-94); MONOCYTES # (AUTO) 0.7 K/uL (0.8-1.0); MONOCYTES % (AUTO) 8.5 % (1.7-9.3); NEUTROPHILS # (AUTO) 6.2 K/uL (1.8-7.7); NEUTROPHILS % (AUTO) 71.4 % (42.2-75.2); PLATELET COUNT (AUTO) 182 K/uL (140-450); RED BLOOD CELL COUNT(AUTO) 4.21 MIL/uL (4.20-5.40); RED CELL DISTRIBUTION WIDTH 14.2 % (11.6-13.7); WHITE BLOOD COUNT (AUTO) 8.8 K/uL (4.8-10.8)
--- NOTE | 2018-06-20 07:10 | NUR ---
ENDORSED PT TO DAY SHIFT NURSE FOR CONTINUITY OF CARE. PT IN STABLE CONDITION.
--- NOTE | 2018-06-20 07:11 | NUR ---
RECEIVED REPORT FROM NURSE AT BEDSIDE. PT LYING ON HER BED ON HER RIGHT SIDE. 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 PT ON SEIZURE PRECAUTION. PT HAS SIDE RAILS PADDED. BED AT LOWER POSITION. PT PARTICIPATES MINIMALLY IN CONVERSATION PER PM NURSE. PLACED CALL LIGHT WITHIN PT REACH. INFORMED HER TO USE CALL LIGHT FOR ANY HELP. NO SIGN OF DISTRESS NOTED. WILL CONTINUE TO MONITOR PT.
[2018-06-20 07:31] LABS: ANION GAP 8.6 (8-16); CARBON DIOXIDE 23.6 mmol/L (21-32); POTASSIUM 3.2 mmol/L (3.5-5.1)
[2018-06-20 07:50] VITALS: BP 101/69
[2018-06-20] MEDS: lamoTRIgine 25 MG TAB PO SCH (09:06)
--- NOTE | 2018-06-20 09:35 | NUR ---
ADMINISTERED MEDS TO PT ORDERED. PT SITTING ON HER BED, EATING HER BREAKFAST ON HER ON. TOLERATED MEDS WELL. NON-VERBAL, MAKE GESTURES. PT STABLE AT THIS TIME. ALL SAFETY MEASURE IN PLACE. SEIZURE PRECAUTION IN PLACE.NO SIGN OF DISTRESS NOTED. WILL CONTINUE TO MONITOR PT.
--- NOTE | 2018-06-20 10:41 | NUR ---
DR DANIEL CALLED, UPDATED HIM ON PT AM LABS. ORDERED FOR UA/PAROLE OR PROBATION OFFICER, GAVE ORDER FOR ROCEPHIN 1 GM X OD X 8 DAYS. ORDERED TO ADMINISTER 40 MEQ POTASSIUM PO X 1 . OKAY TO DISCHARGE PT AFTER COLLECTING URINE SAMPLE TO BE SENT TO LAB FOR UA/PAROLE OR PROBATION OFFICER.
--- NOTE | 2018-06-20 11:28 | NUR ---
PERFORMED STRAIGHT CATHETER TO COLLECT URINE FOR UA/PUBLIC HEALTH AIDE PER MD ORDER. URINE COLLECTED AND SENT IT TO LAB. RN BENNETT HELPED WITH PROCEDURE. PT TOLERATED PROCEDURE WELL. NO SIGN OF DISTRESS NOTED. ALL SAFETY MEASURE IN PLACE. WILL CONTINUE TO MONITOR PT.
[2018-06-20 11:52] LABS: APPEARANCE,URINE CLOUDY (CLEAR); BILIRUBIN,URINE NEGATIVE (NEGATIVE); BLOOD, URINE 2+ (NEGATIVE); COLOR,URINE YELLOW (YELLOW); LEUKOCYTE ESTERASE ,URINE 3+ (NEGATIVE); NITRITE, URINE NEGATIVE (NEGATIVE); PH,URINE 5.5 (5.0-9.0); UGLUCOSE 2+ (NEGATIVE)
[2018-06-20 12:00] VITALS: BP 115/78
[2018-06-20] MEDS ORDERED: POTASSIUM CHLORIDE 10 MEQ TABER PO SCH (12:00)
[2018-06-20] MEDS: INSULIN LISPRO SLIDING SCALE 100 UNITS/ML VIAL SUBQ PRN (12:01)
[2018-06-20 12:03] LABS: RBC,URINE 11-20 (MOD) /HPF (0-5); WBC,URINE TOO MANY TO COUNT /HPF (0-5); YEAST,URINE Moderate /HPF (None Seen)
--- NOTE | 2018-06-20 12:40 | NUR ---
Systems Test Engineer Note: I faxed patient's medical information to Princess [facility].
--- NOTE | 2018-06-20 13:04 | NUR ---
SPOKE WITH GIGI FROM [facility]. HE IS AWARE OF THE CULTURES AND THAT URINE CULTURE NO BACK YET. HE SAID THE PATIENT CAN GO BACK TO THEM TODAY, ROOM 18B UNDER DR. Ingrid ORLANDO. KARIN ALMAGUERSUPERVISOR PRODUCTION DEPARTMENT DIRECTOR INFORMED. LILIYA ALMAGUERRESEARCH ASST NURSE AWARE.
--- NOTE | 2018-06-20 13:10 | NUR ---
CALLED FOR DIGITAL COMMUNITY MANAGER TIME FOR PT. STATES CM FOLLOWING UP WITH NIGEL BEAVER. WILL CONTINUE TO MONITOR PT.
--- NOTE | 2018-06-20 13:39 | NUR ---
REPORT GIVEN TO MONIQUE SAUCEDO FROM [facility] [phone]. UPDATED HER ON PT VS. INFORMED HER THAT PT WILL BE GOING BACK TO FACILITY WITH IV ACCESS SINCE SHE WILL BE ON IV ABX 1 GM ROCEPHIN FOR 8 MORE DAYS. VERBALIZED UNDERSTANDING . GAVE CALL BACK NUMBER [phone]. WILL CONTINUE TO MONITOR PT.
[2018-06-20] MEDS ORDERED: CEFT1SOL1 IV (13:56)
[2018-06-20] MEDS: MUPIROCIN CA NASAL 2% 1GM TUBE NS SCH (15:27)
[2018-06-20] MEDS: CHLORHEXADINE GLUC 2% CLOTH TP SCH (15:27)
--- NOTE | 2018-06-20 15:35 | NUR ---
1427 CALLED [facility] [phone] AND SPOKE WITH BAYLEE AND SCHEDULED A [facility] BILL FOR PT TO RETURN TO [facility]. CHEMICAL PROJECT ENGINEER TIME IS 2577
[2018-06-20 16:00] VITALS: BP 114/76
--- NOTE | 2018-06-20 16:30 | NUR ---
BEDSIDE BLOOD SUGAR 74, JUICE GIVEN, PT DRINKING WELL, WILL CHECK AGAIN, PRIMARY NURSE SITAL AWARE
--- NOTE | 2018-06-20 17:11 | NUR ---
[facility] STATES THAT TRANSPORT IS RUNNING LATE, WILL RECRUITING AND SELECTION CONSULTANT PT AROUND 1900.
--- NOTE | 2018-06-20 17:20 | NUR ---
REPEAT BLOOD SUGAR 80, PT SITTING UP DRINKING
--- NOTE | 2018-06-20 18:15 | NUR ---
PT TRANSFERRED TO [facility] . TRANSFERRED VIA [facility]. PT WENT [facility] WITH IV ACCESS ON HER LEFT A/C 20 G. IV SITE PATENT AND INTACT. PT TO CONTINUE IV ABX FOR 8 MORE DAYS. REPORT GIVEN TO MONIQUE SAUCEDO FROM [facility]. PT WAS STABLE AND NORMAL VS AT TIME OF TRANSFER. ALL TRANSFER DOCUMENTS PACKET WITH DC INSTRUCTION PROVIDED WIT TRANSPORT PERSONNEL. PT WAS PICKED UP AT 1815.
== END 2018-06-20 18:25 | disposition home or self-care (01) | DRG 720 ==
LOC: MED 08:48 → MTU 10:05 → UNDODISIN 17:00
PROVIDERS: ADMIT Family Medicine; ATTEND Family Medicine
PROC: 3E0234Z Introduction of Serum, Toxoid and Vaccine into Muscle, Percutaneous Approach (ICD-10-PCS; principal; 2018-06-18)
DX: A41.9 Sepsis, unspecified organism (principal); G93.40 Encephalopathy, unspecified; N17.9 Acute kidney failure, unspecified; E87.0 Hyperosmolality and hypernatremia; E44.1 Mild protein-calorie malnutrition; I50.9 Heart failure, unspecified; I11.0 Hypertensive heart disease with heart failure; G30.9 Alzheimer's disease, unspecified; F02.80 Dementia in other diseases classified elsewhere, unspecified severity, without behavioral disturbance, psychotic disturbance, mood disturbance, and anxiety; E11.9 Type 2 diabetes mellitus without complications; N39.0 Urinary tract infection, site not specified; J44.9 Chronic obstructive pulmonary disease, unspecified; K21.9 Gastro-esophageal reflux disease without esophagitis; E86.0 Dehydration; G40.909 Epilepsy, unspecified, not intractable, without status epilepticus; Z86.73 Personal history of transient ischemic attack (TIA), and cerebral infarction without residual deficits; Z68.1 Body mass index [BMI] 19.9 or less, adult; Z23 Encounter for immunization; Z79.4 Long term (current) use of insulin; Z79.82 Long term (current) use of aspirin; Z79.899 Other long term (current) drug therapy; Z93.1 Gastrostomy status
CPT/HCPCS: 36415; 71045; 80048; 80053; 81001; 82550; 82948; 83605; 84484; 85025; 85610; 85730; 87040; 87081; 87086; 90658; 96365; 96367; 99285; C1758; J0696; J1450; J1815; J7030; J7060; Q0092

== ENCOUNTER 2018-08-06 18:16 | Inpatient (IN) | payer MEDICAID, MEDICARE ==
[~2018-08-06] VITALS: Ht 170.2 cm; Wt 61.7 kg
[~2018-08-06 18:16] MED LIST changes: +CEFT1SOL1 IV; +HYDR-1093 GT; -HYDR-2912 GT; -ROC2I IJ; -ROC2I IV; -[UNRECOGNIZED DRUG - OTHER] IV
[2018-08-06 18:18] VITALS: BP 136/74
--- NOTE | 2018-08-06 18:20 | NUR ---
PT BIBA TO BED 10
--- NOTE | 2018-08-06 18:27 | NUR ---
68 YO FEMALE BIB EMS FROM [facility] FOR SEIZURE AWAKE NON VERBAL ON ARRIVAL. PT NO N/V/D; SKIN IS INTACT, PINK/WARM/DRY;ALERT, PERRL, UNABLE TO AMBULATE, LUNGS CLEAR BL, BREATHING UNLABORED; HR EVEN AND REGULAR, BL PERIPHERAL PULSES PRESENT; BS ACTIVE X4, NO TENDERNESS TO PALPATION, NO HEPATOSPLENOMEGALLY PALPATED, RESONANT TO PERCUSSION; PT HAS NO EVIDENCE OF ANY FEVER, CP, SOB, OR COUGH AT THIS TIME; PT 0/10 PAIN FLACC SCALE AT THIS TIME; VSS; PATIENT POSITIONED FOR COMFORT; HOB ELEVATED; BEDRAILS UP X2; BED DOWN. URINE OBTAINED.
[2018-08-06] MEDS ORDERED: INSU100S5 IJ (18:35)
[2018-08-06] MEDS ORDERED: TAP5 PO (18:35)
[2018-08-06] MEDS ORDERED: KEN.1C TP (18:35)
--- NOTE | 2018-08-06 19:04 | NUR ---
PT ON BED IN NAD, NO COMPLAINTS AT THIS TIME
--- NOTE | 2018-08-06 19:13 | NUR ---
REPORT TO ABRIL ALMAGUER
--- NOTE | 2018-08-06 19:14 | NUR ---
RECIEVED REPORT CONCETTA ALMAGUER
[2018-08-06] MEDS ORDERED: cefTRIAXone 1,000 MG in DEXT 5% MINI-BAG PLUS 50 ML IV ONE (19:35)
[2018-08-06] MEDS ORDERED: cefTRIAXone 1,000 MG VIAL ONE (20:12)
--- NOTE | 2018-08-06 20:16 | NUR ---
PT MOVED TO BED 6
--- NOTE | 2018-08-06 20:16 | NUR ---
PT MOVED FROM BED 10 TO BED 6, GAVE REPORT TO CALISTA ALMAGUER
[2018-08-06 20:39] LABS: BASOPHILS # (AUTO) 0.1 K/uL (0.00-0.22); BASOPHILS % (AUTO) 0.6 % (0.0-2.0); EOSINOPHILS # (AUTO) 0.1 K/uL (0-0.4); EOSINOPHILS % (AUTO) 0.7 % (0.0-4.0); HEMATOCRIT 41.5 % (36-48); HEMOGLOBIN 12.9 g/dL (12.0-16.0); LYMPHOCYTES # (AUTO) 1.2 K/uL (2.5-16.5); LYMPHOCYTES % (AUTO) 10.7 % (20.5-51.1); MEAN CORPUSCULAR HEMOGLOBIN 28 pg (27-31); MEAN CORPUSCULAR HGB CONC 31 g/dL (33-37); MEAN CORPUSCULAR VOLUME 89.7 fL (80-94); MONOCYTES # (AUTO) 0.7 K/uL (0.8-1.0); MONOCYTES % (AUTO) 6.7 % (1.7-9.3); NEUTROPHILS # (AUTO) 9.2 K/uL (1.8-7.7); NEUTROPHILS % (AUTO) 81.3 % (42.2-75.2); PLATELET COUNT (AUTO) 305 K/uL (140-450); RED BLOOD CELL COUNT(AUTO) 4.63 MIL/uL (4.20-5.40); RED CELL DISTRIBUTION WIDTH 14.9 % (11.6-13.7); WHITE BLOOD COUNT (AUTO) 11.3 K/uL (4.8-10.8)
[2018-08-06 21:00] LABS: PROTHROMBIN TIME 9.9 secs (10.8-13.4)
--- NOTE | 2018-08-06 21:00 | NUR ---
PT IN BED , AWAKE, NO SEIZURE ACTIVITY NOTED SINCE ARRIVAL IN ER, VSS, WILL CONTINUE TO MONITOR.
[2018-08-06 21:06] LABS: ALBUMIN 3.5 g/dL (3.4-5.0); ANION GAP 16.7 (8-16); CARBON DIOXIDE 25.7 mmol/L (21-32); CREATININE 1.1 mg/dL (0.6-1.3); POTASSIUM 4.4 mmol/L (3.5-5.1); TOTAL BILIRUBIN 0.3 mg/dL (0.0-1.0)
[2018-08-06] MEDS ORDERED: NACL 0.9% 1,000 ML IV ONE (21:10)
[2018-08-06] MEDS ORDERED: NACL 0.9% 500 ML IV ONE (21:10)
[2018-08-06 21:20] LABS: BILIRUBIN,URINE NEGATIVE (NEGATIVE); BLOOD, URINE MODERATE (NEGATIVE); COLOR,URINE YELLOW (YELLOW); NITRITE, URINE NEGATIVE (NEGATIVE); UGLUCOSE >=1000 (NEGATIVE)
[2018-08-06 21:21] LABS: APPEARANCE,URINE CLOUDY (CLEAR); LEUKOCYTE ESTERASE ,URINE 4+ (NEGATIVE)
[2018-08-06 21:27] LABS: RBC,URINE 0-5 (RARE) /HPF (0-5); WBC,URINE 60-80 /HPF (0-5); YEAST,URINE Many /HPF (None Seen)
--- NOTE | 2018-08-06 22:47 | NUR ---
Dr. Babcock evaluating patient at bedside.
--- NOTE | 2018-08-06 23:40 | NUR ---
PT IN BED RESTING, AROUSABLE TO ENVIRONMENTAL STIMULI, WILL CONTINUE TO MONITOR.
[2018-08-07] VITALS (7 sets, daily range): BP systolic 122–147; BP diastolic 67–89
--- NOTE | 2018-08-07 00:20 | NUR ---
Patient will be admitted to care of DR ORLANDO. Admited to TELE. Will go to room 108-B. Belongings list completed. Report to TRIPP BURDICK.
--- NOTE | 2018-08-07 00:20 | NUR ---
PT ARRIVED ON UNIT WITH ER NURSE VIA [facility]. PT TRANSFERRED FROM [facility] INTO BED WITH TOTAL ASSISTANCE. PT IS NONVERBAL. PT AWAKE. PT IS ON RA, RESPIRATIONS ARE EVEN AND UNLABORED. IV ACCESS IN R FA 22G WITH IV BOLUS STILL INFUSING. IV IS PATENT AND INTACT. PT SKIN IS INTACT. MRSA SWAB COLLECTED. FALL PRECAUTIONS AND SEIZURE PRECAUTIONS ARE IN PLACE. BED IS LOCKED, LOW POSITION WITH SIDE RAILS UP X2. BOARD UPDATED. CALL LIGHT IS WITHIN REACH. WILL CONTINUE TO MONITOR PT.
[2018-08-07] MEDS ORDERED: DEXTROSE 50% 50 ML SYR IVP PRN (01:00)
--- NOTE | 2018-08-07 01:00 | NUR ---
SPOKE WITH DR. ORLANDO, ORDERS INPUTTED. WILL REVIEW ALL HOME MEDICATIONS WHEN HE SEES PT TOMORROW.
--- NOTE | 2018-08-07 02:21 | NUR ---
ORDERED IVF STARTED.
[2018-08-07] MEDS: POTASSIUM CHL 20 MEQ/ 1/2 NS 1,000 ML IV SCH ×3 (02:22→22:00)
--- NOTE | 2018-08-07 04:22 | NUR ---
PT ASLEEP IN BED. NO S/SX OF DISTRESS. WILL CONTINUE TO MONITOR.
--- NOTE | 2018-08-07 05:33 | NUR ---
BS CHECKED, 66. GAVE PT ORANGE JUICE. PT TOLERATED WELL. NO S/SX OF DISTRESS. WILL CONTINUE TO MONITOR.
[2018-08-07] MEDS: BLOOD GLUCOSE MONITORING 1 DEV DEV FS SCH ×4 (05:35→21:00)
--- NOTE | 2018-08-07 05:57 | NUR ---
PT BS RECHECKED, 74.
[2018-08-07] MEDS ORDERED: hydrOXYzine HCL 25 MG TAB GT PRN (07:05)
--- NOTE | 2018-08-07 07:10 | NUR ---
RECEIVED PT REPORT AT BEDSIDE FROM NIGHT NURSE. PT IS AWAKE AND ALERT IN BED. NO S/S OF DISTRESS, NO SOB, NO C/O PAIN NOTED AT THIS TIME. PT ON ROOM AIR. IV SITE NOTED ON R FA, 22 GAUGE, INFUSING NACL KCL AT 100 ML/HR. IV IS INTACT AND PATENT. PT IS ON ISOLATION FOR HX OF MRSA NARES. SKIN IS INTACT. FALL PRECAUTIONS AND SEIZURE PRECAUTIONS IN PLACE. CALL LIGHT WITHIN REACH, WILL CONTINUE TO MONITOR.
--- NOTE | 2018-08-07 07:20 | NUR ---
ENDORSED PT TO DAY SHIFT NURSE FOR CONTINUITY OF CARE. PT IN STABLE CONDITION.
[2018-08-07] MEDS ORDERED: metFORMIN 500 MG TAB PO SCH (08:00)
--- NOTE | 2018-08-07 08:41 | NUR ---
PATIENT HAS BEEN SCREENED AND CATEGORIZED HIGH NUTRITION RISK. PATIENT WILL BE SEEN WITHIN 1-2 DAYS OF ADMISSION. 08/07/18-08/08/[address]
[2018-08-07] MEDS: ASPIRIN 81 MG TAB.CHEW PO SCH (09:16)
[2018-08-07] MEDS: METHIMAZOLE 5 MG TAB PO SCH ×2 (09:16→20:40)
[2018-08-07] MEDS: DONEPEZIL 10 MG TAB PO SCH (09:16)
[2018-08-07] MEDS: MONTELUKAST SODIUM 10 MG TAB PO SCH (09:16)
[2018-08-07] MEDS: lamoTRIgine 25 MG TAB PO SCH ×2 (09:17→20:40)
[2018-08-07] MEDS: LABETALOL 100 MG TAB PO SCH ×2 (09:18→20:40)
--- NOTE | 2018-08-07 12:00 | NUR ---
PT IS EATING LUNCH WITH THE ASSISTANCE OF THE SUPERVISOR PLATE FORMING. NO S/S OF ACUTE DISTRESS, NO SOB NOTED. CALL LIGHT IS WITHIN REACH. FALL AND SEIZURE PRECAUTIONS IN PLACE. WILL CONTINUE TO MONITOR.
--- NOTE | 2018-08-07 13:56 | NUR ---
08/07/18 RD INITIAL ASSESSMENT COMPLETED PLEASE REFER TO NUTRITION ASSESSMENT UNDER CARE ACTIVITY FOR ESTIMATED NUTRITIONAL NEEDS. 1. CONTINUE CCHO 60 GM DIET TOLERATED 2. DIEITITIAN RECOMMEND 2 GM SODIUM DIABETIC DIET 3. DIETITIAN PROVIDED HYPERTENSIVE AND DIABETIC NUTRITIONAL EDUCATION ON PATIENTS TABLE 4. DIETITIAN RECOMMENDS ENSURE MAX 3X/DAY 5. RD TO FOLLOW-UP 2-3 DAYS, HIGH RISK ALEE SCHAEFFER RD
--- NOTE | 2018-08-07 18:14 | NUR ---
PT CLEANED AND LINENS CHANGED. PT DID NOT WANT TO EAT DINNER. NO S/S OF ACUTE DISTRESS, NO SOB. FALL AND SEIZURE PRECAUTIONS IN PLACE. CALL LIGHT WITHIN REACH. WILL CONTINUE TO MONITOR.
--- NOTE | 2018-08-07 19:44 | NUR ---
PT REPORT GIVEN AT BEDSIDE TO NIGHT NURSE. PT ENDORSED IN STABLE CONDITION.
--- NOTE | 2018-08-07 19:45 | NUR ---
RECEIVED PT IN STABLE CONDITION FROM AM NURSE. AWAKE, ALERT,ORIENTED X2. BEDREST. ON TELE MONITOR-SR. WITH NO ACUTE DISTRESS NOTED. NO C/O ANY DISCOMFORT NOR PAIN NOTED. HAS IVF INFUSING WELL ON THE RT FA#22. CLEAR AND PATENT. SIDE RAILS PADDED FOR SEIZURE PRECAUTION. BED ON LOW POSITION, FREQUENT ROUNDS NEEDED. BED ALARM ON. CALL LIGHT WITHIN REACH. DR. PILLAI JUST CAME AND EXAMINED PT. WILL CONTINUE TO MONITOR.
[2018-08-07] MEDS: INSULIN LANTUS 100 UNITS/ML 10 ML VIAL SUBQ SCH (21:00)
[2018-08-07] MEDS ORDERED: NON-FORMULARY ITEM (Insulin Glargine,Hum.rec.anlog (Lantus Solostar) 20 UNIT) SUBQ SCH (21:00)
--- NOTE | 2018-08-07 21:05 | NUR ---
PAGED DR. ORLANDO FOR PT REFUSED TO HAVE BLOOD SUGAR CHECKED TONIGHT. WILL WAIT FOR CALL BACK.
--- NOTE | 2018-08-07 21:36 | NUR ---
DR. ORLANDO CALLED BACK. MADE AWARE ABOUT PT REFUSING BLOOD SUGAR CHECK TONIGHT. HE ASKED ABOUT THE LAST BS 142 EARLIER AT 1730. AND TAVAREZ THAT PT DOESN'T REALLY EAT ENOUGH. HE ORDERED JUS TO GIVE LANTUS 10 UNITS ONLY INSTEAD OF 20 UNITS SCHEDULED.
[2018-08-07] MEDS ORDERED: INSULIN LANTUS 100 UNITS/ML 10 ML VIAL SUBQ SCH (21:40)
--- NOTE | 2018-08-07 22:30 | NUR ---
PT AWAKE,INCONTINENT OF URINE. CLEANED AND KEPT DRY . REPOSITIONED FOR COMFORT.
--- NOTE | 2018-08-07 23:30 | NUR ---
AWAKE. CONFUSED. REPOSITIONED FOR COMFORT. WILL CONTINUE TO MONITOR.
--- NOTE | 2018-08-08 01:30 | NUR ---
MADE ROUNDS. PT ASLEEP. NO S/S OF ANY DISCOMFORT NOR PAIN NOTED.
--- NOTE | 2018-08-08 03:30 | NUR ---
PT ASLEEP. NO DISTRESS NOR ANY DISCOMFORT NOTED. WILL CONTINUE TO MONITOR.
--- NOTE | 2018-08-08 04:00 | NUR ---
FELICE LAYTON PROVIDED BUT PT KEEPS ON REFUSING TO HAVE IT ON.
[2018-08-08 04:15] VITALS: BP 123/90
[2018-08-08] MEDS: POTASSIUM CHL 20 MEQ/ 1/2 NS 1,000 ML IV SCH (04:58)
[2018-08-08] MEDS: BLOOD GLUCOSE MONITORING 1 DEV DEV FS SCH ×4 (06:00→20:34)
--- NOTE | 2018-08-08 07:10 | NUR ---
RECEIVED PATIENT REPORT AT BEDSIDE. PATIENT ASLEEP BUT AROUSABLE. NO S/S OF DISTRESS. PATIENT ON TELE MONITORING. FALL PRECAUTIONS IN PLACE. WILL CONTINUE TO MONITOR
[2018-08-08 07:33] LABS: BASOPHILS # (AUTO) 0.1 K/uL (0.00-0.22); BASOPHILS % (AUTO) 0.7 % (0.0-2.0); EOSINOPHILS # (AUTO) 0.2 K/uL (0-0.4); EOSINOPHILS % (AUTO) 1.9 % (0.0-4.0); HEMATOCRIT 44.1 % (36-48); HEMOGLOBIN 13.9 g/dL (12.0-16.0); LYMPHOCYTES % (AUTO) 23.1 % (20.5-51.1); MEAN CORPUSCULAR HEMOGLOBIN 28 pg (27-31); MEAN CORPUSCULAR HGB CONC 31 g/dL (33-37); MEAN CORPUSCULAR VOLUME 89.7 fL (80-94); MONOCYTES % (AUTO) 10.7 % (1.7-9.3); NEUTROPHILS # (AUTO) 5.6 K/uL (1.8-7.7); NEUTROPHILS % (AUTO) 63.6 % (42.2-75.2); PLATELET COUNT (AUTO) 324 K/uL (140-450); RED BLOOD CELL COUNT(AUTO) 4.92 MIL/uL (4.20-5.40); RED CELL DISTRIBUTION WIDTH 14.7 % (11.6-13.7); WHITE BLOOD COUNT (AUTO) 8.9 K/uL (4.8-10.8)
[2018-08-08 07:45] LABS: ANION GAP 13.5 (8-16); CARBON DIOXIDE 27.8 mmol/L (21-32); CREATININE 0.9 mg/dL (0.6-1.3); POTASSIUM 4.3 mmol/L (3.5-5.1)
[2018-08-08 08:00] VITALS: BP 130/85
[2018-08-08] MEDS ORDERED: LORazepam 2 MG/ML VIAL IM/IVP PRN (08:50)
[2018-08-08] MEDS: LABETALOL 100 MG TAB PO SCH ×2 (09:22→20:15)
[2018-08-08] MEDS: lamoTRIgine 25 MG TAB PO SCH ×2 (09:22→20:14)
[2018-08-08] MEDS: ASPIRIN 81 MG TAB.CHEW PO SCH (09:22)
[2018-08-08] MEDS: DONEPEZIL 10 MG TAB PO SCH (09:22)
--- NOTE | 2018-08-08 09:22 | NUR ---
DUE MEDS CRUSHED AND ADMINISTERED WITH APPLESAUCE. PATIENT TOLERATED WELL
[2018-08-08] MEDS: METHIMAZOLE 5 MG TAB PO SCH ×2 (09:23→20:15)
[2018-08-08] MEDS: MONTELUKAST SODIUM 10 MG TAB PO SCH (09:23)
[2018-08-08] MEDS: NACL 0.9% 1,000 ML IV SCH ×3 (09:23→22:09)
[2018-08-08 12:00] VITALS: BP 112/70
[2018-08-08] MEDS: INSULIN LISPRO SLIDING SCALE 100 UNITS/ML VIAL SUBQ PRN ×2 (12:35→21:03)
--- NOTE | 2018-08-08 13:50 | NUR ---
RECEIVED REPORT FROM NURSE JORGE. PT ASLEEP IN BED, RESPIRATIONS EVEN & UNLABORED, FLACC 0. CALL LIGHT WITHIN REACH.
[2018-08-08 16:00] VITALS: BP 156/99
--- NOTE | 2018-08-08 16:30 | NUR ---
PT OBSERVED TO BE PULLING ON IV LINES & REMOVING SOLAR SALES AMBASSADOR. REDIRECTED PT ATTENTION TO TV. SOLAR SALES AMBASSADOR REAPPLIED, LEFT AC IV INTACT & ASYMPTOMATIC WITH ONGOING IVF. SITE WRAPPED WITH STRETCH GAUZE. PT HAS NO C/O DISCOMFORT, RESPIRATIONS EVEN & UNLABORED. CALL LIGHT WITHIN REACH.
--- NOTE | 2018-08-08 18:43 | NUR ---
PT IN HIGH FOWLERS IN BED, EATING DINNER. NO C/O DISCOMFORT. RESPIRATIONS EVEN & UNLABORED. CALL LIGHT WITHIN REACH.
--- NOTE | 2018-08-08 19:10 | NUR ---
BEDSIDE REPORT GIVEN TO PM NURSE ADRIEL. PT IN SEMIFOWLERS IN BED, AWAKE, RESPIRATIONS EVEN & UNLABORED, FLACC 0. CALL LIGHT WITHIN REACH.
--- NOTE | 2018-08-08 19:15 | NUR ---
RECEIVED PT IN STABLE CONDITION FROM AM NURSE. AWAKE,BUT CONFUSED. BEDREST . HAS GENERALIZED WEAKNESS. WITH NO ACUTE DISTRESS NOR ANY DISCOMFORT NOTED. IVF INFUSING WELL ON THE LT AC G#24. CLEAR AND PATENT. SKIN INTACT. BED ON LOWEST POSITION. SIDE RAILS ARE UP AND ARE PADDED FOR SEIZURE PRECAUTIONS. FREQUENT ROUNDS NEEDED. BED ALARM ON . CALL LIGHT PLACED WITHIN EASY REACH . PT NEED REINFORCEMENT ON ANY TEACHING GIVEN. ON CONTACT ISOLATION FOR HX:MRSA NARES. WILL CONTINUE TO MONITOR. .
[2018-08-08 20:00] VITALS: BP 138/89
--- NOTE | 2018-08-08 21:03 | NUR ---
ABLE TO CHECK BLOOD SUGAR WITH ANOTHER NURSE ASSIST, RESULT WAS 152. HUMALOG 2 UNITS SUBQ COVERAGE GIVEN . PROVIDED WITH SOME PUDDING. TOLERATED WELL. WILL CONTINUE TO MONITOR.
[2018-08-08] MEDS: INSULIN LANTUS 100 UNITS/ML 10 ML VIAL SUBQ SCH (21:10)
[2018-08-08 23:41] VITALS: BP 143/83
--- NOTE | 2018-08-09 01:30 | NUR ---
PT INCONTINENT URINE. CLEANED AND KEPT DRY. THEN REPOSITIONED FOR COMFORT.
--- NOTE | 2018-08-09 03:12 | NUR ---
BED ALARM ON . CAME TO CHECK PT. TRIED TO GET OUT OF BED. ALREADY IN BETWEEN THE RAILS. SO PUT BACK TO BED. REPOSITIONED FOR COMFORT. REORIENTED TO ROOM AND BED. SIDE RAILS UP X3. WILL CONTINUE TO MONITOR.
[2018-08-09 04:18] VITALS: BP 130/80
--- NOTE | 2018-08-09 04:31 | NUR ---
PT AGITATED TRYING TO GET OUT OF BED . ABLE TO TALKED TO DR. KELLER .RESIDENT. MADE HER AWARE. WITH ORDER.
[2018-08-09] MEDS ORDERED: LORazepam 2 MG/ML VIAL ONE (04:53)
[2018-08-09] MEDS ORDERED: LORazepam 2 MG/ML VIAL IVP SCH (05:30)
--- NOTE | 2018-08-09 05:30 | NUR ---
PT SLEEPING WELL AT THIS TIME. BLOOD JUST DRAWN BY LAB. WILL FOLLOW UP RESULTS.
[2018-08-09] MEDS: BLOOD GLUCOSE MONITORING 1 DEV DEV FS SCH ×4 (06:00→21:40)
--- NOTE | 2018-08-09 06:00 | NUR ---
BLOOD SUGAR WAS CHECKED RESULT 109. NO INSULIN NEEDED.
[2018-08-09 06:42] LABS: ANION GAP 15.8 (8-16); CARBON DIOXIDE 24.6 mmol/L (21-32); CREATININE 0.8 mg/dL (0.6-1.3); POTASSIUM 3.4 mmol/L (3.5-5.1)
[2018-08-09 06:57] LABS: BASOPHILS % (AUTO) 0.5 % (0.0-2.0); EOSINOPHILS # (AUTO) 0.1 K/uL (0-0.4); EOSINOPHILS % (AUTO) 1.7 % (0.0-4.0); HEMATOCRIT 41.2 % (36-48); HEMOGLOBIN 13.1 g/dL (12.0-16.0); LYMPHOCYTES # (AUTO) 1.5 K/uL (2.5-16.5); MEAN CORPUSCULAR HEMOGLOBIN 28 pg (27-31); MEAN CORPUSCULAR HGB CONC 32 g/dL (33-37); MONOCYTES # (AUTO) 0.7 K/uL (0.8-1.0); MONOCYTES % (AUTO) 10.6 % (1.7-9.3); NEUTROPHILS # (AUTO) 4.1 K/uL (1.8-7.7); NEUTROPHILS % (AUTO) 64.2 % (42.2-75.2); PLATELET COUNT (AUTO) 291 K/uL (140-450); RED BLOOD CELL COUNT(AUTO) 4.63 MIL/uL (4.20-5.40); RED CELL DISTRIBUTION WIDTH 14.6 % (11.6-13.7); WHITE BLOOD COUNT (AUTO) 6.4 K/uL (4.8-10.8)
[2018-08-09 06:57] LABS: MAGNESIUM 1.7 mg/dL (1.8-2.4); PHOSPHORUS 3.2 mg/dL (2.5-4.9)
--- NOTE | 2018-08-09 07:28 | NUR ---
ENDORSED PT IN STABLE CONDITION TO AM NURSE.
--- NOTE | 2018-08-09 07:29 | NUR ---
RECEIVED REPORT FROM SEED SORTER NURSE. PATIENT LYING DOWN IN BED SLEEPING, AROUSABLE BY VOICE AND TOUCH. NO DISTRESS NOTED. FLACC 0. AAOX1, CALM, COOPERATIVE AT THIS TIME. SKIN INTACT. LUNGS CTA ON ALL LOBES. ABDOMEN SOFT. IV SITE INTACT, PATENT, AND INFUSING IVF PER MD ORDERS. REVIEWED PLAN OF CARE WITH PATIENT. REINFORCEMENT NEEDED. SAFETY MEASURES IN PLACE, CALL LIGHT WITHIN REACH. WILL CONTINUE TO MONITOR.
[2018-08-09 08:00] VITALS: BP 121/79
[2018-08-09] MEDS: lamoTRIgine 25 MG TAB PO SCH ×2 (08:29→21:49)
[2018-08-09] MEDS: metFORMIN 500 MG TAB PO SCH ×2 (08:30→17:26)
[2018-08-09] MEDS: ASPIRIN 81 MG TAB.CHEW PO SCH (08:30)
[2018-08-09] MEDS: DONEPEZIL 10 MG TAB PO SCH (08:31)
[2018-08-09] MEDS: NACL 0.9% 1,000 ML IV SCH (08:32)
[2018-08-09] MEDS: LABETALOL 100 MG TAB PO SCH ×2 (08:32→21:48)
[2018-08-09] MEDS: METHIMAZOLE 5 MG TAB PO SCH ×2 (08:33→21:48)
[2018-08-09] MEDS: MONTELUKAST SODIUM 10 MG TAB PO SCH (08:38)
[2018-08-09] MEDS ORDERED: POTASSIUM CHLORIDE 10 MEQ TABER PO SCH (09:00)
[2018-08-09] MEDS ORDERED: MAGNESIUM OXIDE 400 MG TAB PO SCH (09:00)
--- NOTE | 2018-08-09 09:35 | NUR ---
ADMINISTERED SCHEDULED MEDS. PATIENT TOLERATED WELL. WILL CONTINUE TO MONITOR.
[2018-08-09 12:10] VITALS: BP 99/66
[2018-08-09] MEDS: INSULIN LISPRO SLIDING SCALE 100 UNITS/ML VIAL SUBQ PRN ×2 (12:26→21:55)
--- NOTE | 2018-08-09 12:59 | NUR ---
[place] Monitoring Technician Note: I faxed patient's medical information to [facility] Garcia, no discharge order at this time.
[2018-08-09 16:01] VITALS: BP 126/84
--- NOTE | 2018-08-09 16:18 | NUR ---
08/09/18 RD FOLLOW UP COMPLETED PLEASE REFER TO NUTRITION ASSESSMENT UNDER CARE ACTIVITY FOR ESTIMATED NUTRITIONAL NEEDS. 1. CONTINUE CCHO 60 GM, NA2GM DIET WITH ENSURE MAX TID TOLERATED 2. ENCOURAGE PO INTAKE. 3. IF PATIENTS PO INTAKE CONTINUES <50%, CONSIDER ENTERAL NUTRITION TO MEET ENERGY AND PROTEIN NEEDS. 4. RD TO FOLLOW-UP 2-3 DAYS, HIGH RISK ALEE SCHAEFFER, RD
--- NOTE | 2018-08-09 17:28 | NUR ---
ADMINISTERED SCHEDULED MEDICATION. PATIENT TOLERATED WELL. WILL CONTINUE TO MONITOR.
--- NOTE | 2018-08-09 19:30 | NUR ---
ENDORSED PATIENT TO NETWORK ENGINEERING ADVISOR NURSE. PATIENT IN STABLE CONDITION.
--- NOTE | 2018-08-09 19:31 | NUR ---
RECEIVED REPORT FROM YANNICK AT BEDSIDE FOR CONTINUITY OF CARE PT AAOX1 (FOLLOWS COMMANDS AND ANSWER TO YES & NO QUESTIONS). NO SOB NO S/S OF DISTRESS ON RA. IV NOTED LAC 24G NS 80ML/HR. BED ALARM PLACED BED LOWERED CALL LIGHT WITHIN REACH WILL CONTINUE TO MONITOR.
[2018-08-09 20:00] VITALS: BP 132/75
[2018-08-09] MEDS: INSULIN LANTUS 100 UNITS/ML 10 ML VIAL SUBQ SCH (21:00)
[2018-08-10] VITALS: BP 132/75
[2018-08-10] MEDS: NACL 0.9% 1,000 ML IV SCH ×2 (00:28→12:36)
[2018-08-10 04:00] VITALS: BP 132/75
[2018-08-10] MEDS: BLOOD GLUCOSE MONITORING 1 DEV DEV FS SCH ×2 (06:08→11:30)
[2018-08-10 07:09] LABS: BASOPHILS % (AUTO) 0.6 % (0.0-2.0); EOSINOPHILS # (AUTO) 0.1 K/uL (0-0.4); EOSINOPHILS % (AUTO) 1.8 % (0.0-4.0); HEMATOCRIT 38.9 % (36-48); HEMOGLOBIN 12.1 g/dL (12.0-16.0); LYMPHOCYTES # (AUTO) 1.6 K/uL (2.5-16.5); LYMPHOCYTES % (AUTO) 21.6 % (20.5-51.1); MEAN CORPUSCULAR HEMOGLOBIN 28 pg (27-31); MEAN CORPUSCULAR HGB CONC 31 g/dL (33-37); MEAN CORPUSCULAR VOLUME 90.6 fL (80-94); MONOCYTES # (AUTO) 0.9 K/uL (0.8-1.0); MONOCYTES % (AUTO) 11.4 % (1.7-9.3); NEUTROPHILS # (AUTO) 4.8 K/uL (1.8-7.7); NEUTROPHILS % (AUTO) 64.6 % (42.2-75.2); PLATELET COUNT (AUTO) 262 K/uL (140-450); RED BLOOD CELL COUNT(AUTO) 4.29 MIL/uL (4.20-5.40); RED CELL DISTRIBUTION WIDTH 14.7 % (11.6-13.7); WHITE BLOOD COUNT (AUTO) 7.5 K/uL (4.8-10.8)
--- NOTE | 2018-08-10 07:15 | NUR ---
ENDORSED REPORT TO DAYSHIFT NURSE AT BEDSIDE FOR CONTINUITY OF CARE.
--- NOTE | 2018-08-10 07:16 | NUR ---
RECEIVED BEDSIDE REPORT FROM CYLINDER MACHINE OPERATOR PULP DRIER NURSE. PATIENT IS AWAKE, ALERT AND ORIENTEDX2. NO SIGNS OF DISTRESS ON RA. PATIENT ON BED REST. FALL RISK PROTOCOL IN PLACE. SKIN IS INTACT. IV ON L FA 24G INFUSING NS AT 80. CLEAN, DRY AND INTACT. SEIZURE PRECAUTIONS IN PLACE. CONTACT PRECAUTIONS IN PLACE. NO COMPLAINTS AT THIS TIME. PATIENT INCONTINENT. WILL CONTINUE TO MONITOR THE PATIENT. BED IN LOW POSITION. CALL LIGHT WITHIN REACH
[2018-08-10 07:18] LABS: ANION GAP 12.7 (8-16); CARBON DIOXIDE 24.3 mmol/L (21-32); CREATININE 0.8 mg/dL (0.6-1.3)
[2018-08-10 07:21] LABS: MAGNESIUM 1.8 mg/dL (1.8-2.4); PHOSPHORUS 2.7 mg/dL (2.5-4.9)
[2018-08-10 08:00] VITALS: BP 146/92
[2018-08-10] MEDS: ASPIRIN 81 MG TAB.CHEW PO SCH (09:12)
[2018-08-10] MEDS: metFORMIN 500 MG TAB PO SCH (09:13)
[2018-08-10] MEDS: lamoTRIgine 25 MG TAB PO SCH (09:13)
[2018-08-10] MEDS: DONEPEZIL 10 MG TAB PO SCH (09:14)
[2018-08-10] MEDS: MONTELUKAST SODIUM 10 MG TAB PO SCH (09:15)
[2018-08-10] MEDS: METHIMAZOLE 5 MG TAB PO SCH ×2 (09:15→09:24)
[2018-08-10] MEDS: LABETALOL 100 MG TAB PO SCH (09:17)
--- NOTE | 2018-08-10 09:18 | NUR ---
ADMINISTERED MEDS. PATIENT TOLERATED WELL. WILL CONTINUE TO MONITOR THE PATIENT. BED IN LOW POSITION. CALL LIGHT WITHIN REACH.
[2018-08-10] MEDS ORDERED: CEPH250C16 PO (10:48)
[2018-08-10] MEDS ORDERED: LACT1.4C PO (10:49)
--- NOTE | 2018-08-10 11:00 | NUR ---
PATIENT IS SLEEPING. NO SIGNS OF DISTRESS. WILL CONTINUE TO MONITOR THE PATIENT
[2018-08-10] MEDS: INSULIN LISPRO SLIDING SCALE 100 UNITS/ML VIAL SUBQ PRN (12:41)
--- NOTE | 2018-08-10 12:41 | NUR ---
ADMINISTERED MEDS. PATIENT TOLERATED WELL. PATIENT IS EATING. WILL CONTINUE TO MONITOR THE PATIENT.
[2018-08-10] MEDS ORDERED: FLUCONAZOLE 100 MG TAB PO SCH (13:00)
--- NOTE | 2018-08-10 13:50 | NUR ---
ADMINISTERED MEDS. PATIENT TOLERATED WELL. WILL CONTINUE TO MONITOR THE PATIENT
--- NOTE | 2018-08-10 14:30 | NUR ---
GAVE REPORT TO NURSE DICKENS AT [facility]. GAVE CALL BACK NUMBER. ANSWERED ALL QUESTIONS AT THIS TIME. ALSO CALLED SON, SON IS AWARE OF DISCHARGE.
--- NOTE | 2018-08-10 15:29 | NUR ---
EDUCATED PATIENT ON DISCHARGE INSTRUCTIONS. EDUCATED ON WHEN TO GO TO THE ER, ABN S/SX, EDUCATED ON MEDS, EDUCATED ON FOLLOW UP W DR ORLANDO. PATIENT VERBALIZED UNDERSTANDING. SIGNED DISCHARGE PAPERWORK. GAVE REPORT TO [facility] STAFF. PATIENT LEFT IN STABLE CONDITION. Addendum: 08/10/18 at 1532 by Irish Al RN VACCINES ARE UP TO DATE
== END 2018-08-10 15:30 | disposition home or self-care (01) | DRG 720 ==
LOC: MED 18:16 → MTU 23:42
PROVIDERS: ADMIT Family Medicine; ATTEND Family Medicine
DX: A41.9 Sepsis, unspecified organism (principal); G93.41 Metabolic encephalopathy; R53.2 Functional quadriplegia; I50.9 Heart failure, unspecified; F03.90 Unspecified dementia, unspecified severity, without behavioral disturbance, psychotic disturbance, mood disturbance, and anxiety; I11.0 Hypertensive heart disease with heart failure; E21.3 Hyperparathyroidism, unspecified; E11.9 Type 2 diabetes mellitus without complications; R53.81 Other malaise; J44.9 Chronic obstructive pulmonary disease, unspecified; K21.9 Gastro-esophageal reflux disease without esophagitis; G40.909 Epilepsy, unspecified, not intractable, without status epilepticus; E05.90 Thyrotoxicosis, unspecified without thyrotoxic crisis or storm; N39.0 Urinary tract infection, site not specified; Z86.73 Personal history of transient ischemic attack (TIA), and cerebral infarction without residual deficits; Z79.4 Long term (current) use of insulin; Z79.82 Long term (current) use of aspirin; Z79.899 Other long term (current) drug therapy
CPT/HCPCS: 36415; 71045; 80048; 80053; 81001; 82550; 82948; 83605; 83735; 83880; 84100; 84484; 85025; 85610; 85730; 87040; 87081; 87086; 87186; 96361; 96365; 99285; J0696; J1815; J2060; J3480; J7030; J7060; Q0092

== ENCOUNTER 2018-09-19 12:52 | Inpatient (IN) | payer MEDICAID, MEDICARE ==
[~2018-09-19] VITALS: Ht 172.7 cm; Wt 49.9 kg
[~2018-09-19 12:52] MED LIST changes: -CEFT1SOL1 IV; +CEPH250C16 PO; +INSU100S5 IJ; +KEN.1C TP; +LACT1.4C PO; +TAP5 PO
--- NOTE | 2018-09-19 12:53 | NUR ---
PT BIBA ALS TO BED 6
[2018-09-19 12:55] VITALS: BP 121/88
--- NOTE | 2018-09-19 12:55 | NUR ---
ON ARRIVAL TO ER,PATIENT OPENS EYES,TRIES TO TALK AND SQEEZE MY HANDS AND PUSHED RESISTANCE OF LOWER EXTREMIRIES.
--- NOTE | 2018-09-19 13:00 | NUR ---
PER PARAMEDICS,PATIENT RESPONDING ONLY WITH PAINFUL STIMULI. REPORTED [facility] IN THE FACILITY 7. NON VERBAL. WITHDRAWAL.FROM SKILLED FACILITY. ALOC X25 MIN.BS 337, BP 119/88,HR 112,POX 96 %.SACH STATED STABLE TO COME TO [facility] X10 MIN. ETA. HX:EPILEPSY,ANEMIA,ALZHEIMER,DM,DEMENTIA,HTN,CVA,GERD,COPD. PATIENT POSITIONED FOR COMFORT; HOB ELEVATED; BEDRAILS UP X2; BED DOWN. ER MD MADE AWARE OF PT STATUS.
--- NOTE | 2018-09-19 13:16 | NUR ---
Patient being evaluated by physician at bedside.
--- NOTE | 2018-09-19 13:20 | NUR ---
XRAY AT BEDSIDE
[2018-09-19 13:39] LABS: BASOPHILS % (AUTO) 0.3 % (0.0-2.0); EOSINOPHILS # (AUTO) 0.3 K/uL (0-0.4); EOSINOPHILS % (AUTO) 2.5 % (0.0-4.0); HEMATOCRIT 52.1 % (36-48); HEMOGLOBIN 15.8 g/dL (12.0-16.0); LYMPHOCYTES # (AUTO) 1.4 K/uL (2.5-16.5); LYMPHOCYTES % (AUTO) 12.3 % (20.5-51.1); MEAN CORPUSCULAR HEMOGLOBIN 28 pg (27-31); MEAN CORPUSCULAR HGB CONC 30 g/dL (33-37); MEAN CORPUSCULAR VOLUME 91.1 fL (80-94); MONOCYTES % (AUTO) 8.6 % (1.7-9.3); NEUTROPHILS # (AUTO) 8.8 K/uL (1.8-7.7); NEUTROPHILS % (AUTO) 76.3 % (42.2-75.2); PLATELET COUNT (AUTO) 292 K/uL (140-450); RED BLOOD CELL COUNT(AUTO) 5.73 MIL/uL (4.20-5.40); RED CELL DISTRIBUTION WIDTH 14.7 % (11.6-13.7); WHITE BLOOD COUNT (AUTO) 11.6 K/uL (4.8-10.8)
--- NOTE | 2018-09-19 13:48 | NUR ---
PT TAKEN TO CT VIA [facility], ACCOMPANIED BY DEPORTATION EXAMINER.
--- NOTE | 2018-09-19 14:15 | NUR ---
# 14 FR Urinary catheter inserted utilizing sterile technique. Immediate return of thick, yellow, cloudy urine, 100 mls noted. Urine sample collected and sent to lab. Pt tolerated procedure well.
[2018-09-19] MEDS ORDERED: NACL 0.9% 1,000 ML IV ONE (14:30)
[2018-09-19] MEDS ORDERED: cefTRIAXone 1,000 MG VIAL ONE (14:41)
[2018-09-19 14:44] LABS: ANION GAP 18.3 (8-16); CARBON DIOXIDE 21.9 mmol/L (21-32); POTASSIUM 4.2 mmol/L (3.5-5.1)
[2018-09-19 14:46] LABS: ALBUMIN 3.5 g/dL (3.4-5.0); CREATININE 2.3 mg/dL (0.6-1.3); TOTAL BILIRUBIN 0.4 mg/dL (0.0-1.0)
--- NOTE | 2018-09-19 14:58 | NUR ---
Patient appears to be resting comfortably in bed. PT'S UNABLE TO TALK AT THIS TIME, OPEN HER EYES, MOVE BOTH ARMS. Respirations even and unlabored. WILL CONTINUE TO MONITOR.
[2018-09-19] MEDS ORDERED: LACTATED RINGERS 1,000 ML IV ONE (15:50)
[2018-09-19 16:08] LABS: APPEARANCE,URINE CLOUDY (CLEAR); BLOOD, URINE 2+ (NEGATIVE); COLOR,URINE YELLOW (YELLOW); UGLUCOSE NEGATIVE (NEGATIVE)
[2018-09-19 16:09] LABS: BILIRUBIN,URINE NEGATIVE (NEGATIVE); LEUKOCYTE ESTERASE ,URINE 3+ (NEGATIVE); NITRITE, URINE NEGATIVE (NEGATIVE)
[2018-09-19 16:10] LABS: RBC,URINE 20-50 /HPF (0-5); WBC,URINE TOO MANY TO COUNT /HPF (0-5); YEAST,URINE Many /HPF (None Seen)
--- NOTE | 2018-09-19 16:28 | NUR ---
PT OPENED HER EYES. PT DOES NOT ANSWER ANY QUESTIONS. BP 147/86, P 96/MINS. RR 14/MINS. WILL CONTINUE TO MONITOR.
[2018-09-19] MEDS ORDERED: NACL 0.9% 1,000 ML IV SCH (16:41)
[2018-09-19] MEDS ORDERED: DOCUSATE SODIUM 100 MG GELCAP PO PRN (16:45)
[2018-09-19] MEDS ORDERED: HYDROcodone/APAP 5/325 MG 1 TAB TAB PO PRN (16:45)
[2018-09-19] MEDS ORDERED: ACETAMINOPHEN 325 MG TAB PO PRN (16:45)
[2018-09-19] MEDS ORDERED: ALBUTEROL SULFATE/IPRATROPIU 3 ML SOL IH PRN (16:45)
[2018-09-19] MEDS ORDERED: ONDANSETRON 4 MG/2 ML VIAL IM/IVP PRN (16:45)
[2018-09-19] MEDS ORDERED: DEXTROSE 50% 50 ML SYR IVP PRN (16:45)
--- NOTE | 2018-09-19 16:51 | NUR ---
LAB AT BEDSIDE.
--- NOTE | 2018-09-19 17:30 | NUR ---
Patient will be admitted to care of DR ORLANDO. Admited to MS. Will go to room 116A. Belongings list completed. Report to BERENICE ALMAGUER.
[2018-09-19] MEDS ORDERED: DEXT 5% / NACL 0.45% 1,000 ML IV SCH (17:40)
[2018-09-19 17:45] VITALS: BP 130/84
--- NOTE | 2018-09-19 17:45 | NUR ---
PATIENT ADMITTED FROM ER. PATIENT IS AWAKE BUT LETHARGIC. NO SOB. PT ON ROOM AIR. VITAL SIGNS WITHIN NORMAL LIMITS. PATIENT UNABLE TO VERBALIZE NEEDS. FALL PRECAUTIONS IN PLACE. WILL CONTINUE TO MONITOR
[2018-09-19 17:48] LABS: PROTHROMBIN TIME 10.7 secs (10.8-13.4)
[2018-09-19] MEDS: NACL 0.45% 1,000 ML IV SCH (18:05)
[2018-09-19 18:10] LABS: MAGNESIUM 2.8 mg/dL (1.8-2.4); PHOSPHORUS 4.5 mg/dL (2.5-4.9); THYROID STIMULATING HORMONE 3.4 uIU/mL (0.34-3.74)
[2018-09-19 18:12] LABS: BARBITURATE, URINE NEGATIVE ng/ml (NEG <=200); BENZODIAZEPINE, URINE NEGATIVE ng/mL (NEG <=200); CANNABINOID, URINE NEGATIVE ng/mL (NEG <=50); COCAINE, URINE NEGATIVE ng/mL (NEG <=300); OPIATE, URINE NEGATIVE ng/mL (NEG <=2000); PHENCYCLIDINE SCREEN,URINE NEGATIVE ng/mL (NEG <=25)
--- NOTE | 2018-09-19 19:40 | NUR ---
PATIENT REPORT GIVEN AT BEDSIDE. PATIENT ENDORSED IN STABLE CONDITION
--- NOTE | 2018-09-19 19:41 | NUR ---
RECD. RESTING IN BED, SLEEPING, OPEN EYES BUT APHASIC. RESPIRATION EVEN AND UNLABORED. IV OF 1/S NS AT 80 ML/HR INFUSING, LEFT LOWER LEG G22. SAFETY MEASURES ENFORCED. INQUIRED IF SHE WANTS TO EAT, SEEMS TO NOD HEAD. PLAN OF CARE DISCUSSED. NEEDS REINFORCEMENT. NO APPEARANCE OF PAIN NOTED 0/10.
[2018-09-19] MEDS ORDERED: PNEUMOCOCCAL VACCINE 23 MCG/0.5 ML VIAL IMVAC SCH (19:45)
[2018-09-19] MEDS ORDERED: INFLUENZA VIRUS VACCINE QUAD 0.5 ML SYR IMVAC PRN (19:45)
[2018-09-19] MEDS: ALBUTEROL SULFATE/IPRATROPIU 3 ML SOL IH SCH (19:58)
--- NOTE | 2018-09-19 20:04 | NUR ---
PT KEPT TAKING OFF TX. WONT LEAVE IT ON. TX NOT FINISHED. NO SOB OR DISTRESS NOTED. RN AWARE. WILL CONTINUE TO MONITOR.
--- NOTE | 2018-09-19 20:30 | NUR ---
TRANSFERRED TO ROOM 114 FOR DROPLET PRECAUTION.
[2018-09-19] MEDS ORDERED: metFORMIN 500 MG TAB PO SCH (21:00)
[2018-09-19] MEDS: FLUCONAZOLE 100 MG TAB PO SCH (21:00)
[2018-09-19] MEDS ORDERED: lamoTRIgine 25 MG TAB PO SCH (21:00)
--- NOTE | 2018-09-19 21:25 | NUR ---
ENDORSED TO TRIPP MOREL FOR CONTINUITY OF CARE.
[2018-09-19] MEDS: BLOOD GLUCOSE MONITORING 1 DEV DEV FS SCH (21:28)
[2018-09-19] MEDS: lamoTRIgine 25 MG TAB PO SCH (21:30)
[2018-09-19] MEDS: METHIMAZOLE 5 MG TAB PO SCH (21:30)
[2018-09-19] MEDS: INSULIN LISPRO SLIDING SCALE 100 UNITS/ML VIAL SUBQ PRN (21:35)
--- NOTE | 2018-09-19 21:44 | NUR ---
DIFLUCAN TAB NOT AVAILABLE. CALLED DR. MCDONNELL RESIDENT MD. MADE AWARE AND HE SAID OK TO START DIFLUCAN TOMORROW.
[2018-09-19 23:51] VITALS: BP 121/81
--- NOTE | 2018-09-20 00:05 | NUR ---
PICKED UP BY BED BY SALESPERSON SHEET MUSIC AMARJIT . PT FOR CT CHEST WITHOUT CONTRAST. ACCOMPANIED BY LINDY,SENIOR WIND TURBINE TECHNICIAN
[2018-09-20 00:14] LABS: CREATININE 1.8 mg/dL (0.6-1.3)
[2018-09-20 00:16] LABS: POTASSIUM 4.5 mmol/L (3.5-5.1)
[2018-09-20 00:17] LABS: CARBON DIOXIDE 24.5 mmol/L (21-32)
--- NOTE | 2018-09-20 00:17 | NUR ---
LAB CALLED FOR NA LEVEL 163. DR. MCDONNELL,RESIDENT MD NOTIFIED. WILL WAIT FOR ANY ORDER.
--- NOTE | 2018-09-20 00:19 | NUR ---
ADDITIONAL NOTES FOR 0017. DR. MCDONNELL ALSO MADE AWARE ABOUT THE ELEVATED MAGNESIUM LEVEL; EARLIER OF 2.8. WILL WAIT FOR ANY ORDER.
--- NOTE | 2018-09-20 00:45 | NUR ---
BACK FROM CT DEPT. WILL FOLLOW UP RESULT OF CT CHEST.
--- NOTE | 2018-09-20 02:00 | NUR ---
MADE ROUNDS. PT ASLEEP. IVF INFUSING WELL ON THE LT FOOT. IV ACCESS.
[2018-09-20 04:22] VITALS: BP 127/86
[2018-09-20] MEDS: NACL 0.45% 1,000 ML IV SCH ×3 (04:39→19:05)
--- NOTE | 2018-09-20 04:45 | NUR ---
RICHARD RESULT,CONSTIPATION. DR. MCDONNELL,RESIDENT MD MADE AWARE.
[2018-09-20] MEDS: INSULIN LISPRO SLIDING SCALE 100 UNITS/ML VIAL SUBQ PRN ×3 (06:16→20:48)
[2018-09-20] MEDS: BLOOD GLUCOSE MONITORING 1 DEV DEV FS SCH ×4 (06:16→20:36)
--- NOTE | 2018-09-20 06:16 | NUR ---
BLOOD SUGAR THIS AM 217. INSULIN COVERAGE GIVEN SUBQ. PT WITH IVF INFUSING WELL.
[2018-09-20] MEDS ORDERED: DEXTROSE 5% 1,000 ML IV SCH (06:25)
--- NOTE | 2018-09-20 07:15 | NUR ---
ENDORSED PT IN STABLE CONDITION TO AM NURSE.
--- NOTE | 2018-09-20 07:16 | NUR ---
RECEIVED REPORT FROM POSTMASTER NURSE. PT IN STABLE CONDITION. RESPIRATIONS EVEN AND UNLABORED. IV INTACT AND PATENT. SAFETY MEASURES IN PLACE. CALL LIGHT AT BEDSIDE. BED IN LOW POSITION. WILL CONTINUE TO MONITOR.
--- NOTE | 2018-09-20 07:45 | NUR ---
PT WAS UNABLE TO GIVE SPUTUM SAMPLE. INSTRUCTED PT TO COUGH AND SPIT INTO CLEAN CATCH CONTAINER. PT TRIED TO DRINK FROM EMPTY CONTAINER. INFORMED RT TO TRY TO RECEIVE SPUTUM SAMPLE FROM PT IF POSSIBLE. WILL CONTINUE TO MONITOR.
[2018-09-20] MEDS: ALBUTEROL SULFATE/IPRATROPIU 3 ML SOL IH SCH ×3 (07:58→19:01)
[2018-09-20 08:00] VITALS: BP 118/75
[2018-09-20] MEDS: MONTELUKAST SODIUM 10 MG TAB PO SCH (08:37)
[2018-09-20] MEDS: VIT-B COMP/VIT-C/FOLIC ACID 1 TAB PO SCH (08:37)
[2018-09-20] MEDS: lamoTRIgine 25 MG TAB PO SCH ×2 (08:37→20:37)
[2018-09-20] MEDS: FLUCONAZOLE 100 MG TAB PO SCH (08:38)
[2018-09-20] MEDS: ASPIRIN 81 MG TAB.CHEW PO SCH (08:38)
[2018-09-20] MEDS: FAMOTIDINE 20 MG TAB PO SCH (08:38)
[2018-09-20] MEDS: METHIMAZOLE 5 MG TAB PO SCH ×2 (08:39→20:37)
[2018-09-20] MEDS: DONEPEZIL 10 MG TAB PO SCH (08:39)
[2018-09-20] MEDS: FERROUS SULFATE 325 MG TABEC PO SCH ×2 (08:39→17:47)
--- NOTE | 2018-09-20 08:41 | NUR ---
PATIENT HAS BEEN SCREENED AND CATEGORIZED HIGH NUTRITION RISK. PATIENT WILL BE SEEN WITHIN 1-2 DAYS OF ADMISSION. 09/20/18-09/21/[address]
[2018-09-20] MEDS ORDERED: MULTIVITAMIN/MINERALS 1 TAB PO SCH (09:00)
[2018-09-20 10:05] LABS: BASOPHILS % (AUTO) 0.4 % (0.0-2.0); EOSINOPHILS # (AUTO) 0.2 K/uL (0-0.4); HEMATOCRIT 46.7 % (36-48); LYMPHOCYTES # (AUTO) 1.1 K/uL (2.5-16.5); LYMPHOCYTES % (AUTO) 13.2 % (20.5-51.1); MEAN CORPUSCULAR HEMOGLOBIN 28 pg (27-31); MEAN CORPUSCULAR HGB CONC 30 g/dL (33-37); MEAN CORPUSCULAR VOLUME 92.2 fL (80-94); MONOCYTES # (AUTO) 0.6 K/uL (0.8-1.0); MONOCYTES % (AUTO) 7.6 % (1.7-9.3); NEUTROPHILS # (AUTO) 6.2 K/uL (1.8-7.7); NEUTROPHILS % (AUTO) 75.8 % (42.2-75.2); PLATELET COUNT (AUTO) 255 K/uL (140-450); RED BLOOD CELL COUNT(AUTO) 5.07 MIL/uL (4.20-5.40); RED CELL DISTRIBUTION WIDTH 15.2 % (11.6-13.7); WHITE BLOOD COUNT (AUTO) 8.2 K/uL (4.8-10.8)
[2018-09-20 10:20] LABS: ANION GAP 14.8 (8-16); POTASSIUM 3.8 mmol/L (3.5-5.1)
--- NOTE | 2018-09-20 10:20 | NUR ---
CRITICAL LAB SODIUM: 162 CHLORIDE: 126 CREAT: 1.6.
[2018-09-20 10:21] LABS: CREATININE 1.6 mg/dL (0.6-1.3); MAGNESIUM 2.2 mg/dL (1.8-2.4); PHOSPHORUS 3.6 mg/dL (2.5-4.9)
[2018-09-20 10:31] LABS: ANION GAP 14.8 (8-16); POTASSIUM 3.8 mmol/L (3.5-5.1)
[2018-09-20 10:32] LABS: CREATININE 1.6 mg/dL (0.6-1.3)
[2018-09-20 12:00] VITALS: BP 126/79
[2018-09-20] MEDS ORDERED: DOCUSATE SODIUM 100 MG GELCAP PO SCH (12:00)
--- NOTE | 2018-09-20 12:10 | NUR ---
SPOKE WITH RT, PT IS WAITING TO BE SEEN BY GROUNDSMAN TO SEE IF SPUTUM SAMPLE IS NEEDED.
[2018-09-20] MEDS ORDERED: MAGNESIUM HYDROXIDE 2400 MG/30 ML UDC PO SCH (12:30)
--- NOTE | 2018-09-20 14:06 | NUR ---
09/20/18 RD INITIAL ASSESSMENT COMPLETED PLEASE REFER TO NUTRITION ASSESSMENT UNDER CARE ACTIVITY FOR ESTIMATED NUTRITIONAL NEEDS. 1. CONTINUE 60 GM CCHO CARDIAC MECHANICAL SOFT DIET TOLERATED 2. RECOMMEND GLUCERNA BID 3. RD TO FOLLOW-UP 3-5 DAYS, MODERATE RISK ALEE SCHAEFFER, RD
--- NOTE | 2018-09-20 14:20 | NUR ---
ASSISTED WITH REPOSITION AND CLEANING. PT TOLERATED WELL. WILL CONTINUE TO MONITOR.
--- NOTE | 2018-09-20 15:39 | NUR ---
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 Jaylene stated patient's son Mateo is her healthcare decision maker.
[2018-09-20 16:00] VITALS: BP 116/78
--- NOTE | 2018-09-20 16:30 | NUR ---
CRITICAL LAB SODIUM: 162
[2018-09-20 16:31] LABS: CARBON DIOXIDE 23.7 mmol/L (21-32); CREATININE 1.6 mg/dL (0.6-1.3); POTASSIUM 3.6 mmol/L (3.5-5.1)
[2018-09-20 16:33] LABS: ANION GAP 16.9 (8-16)
[2018-09-20] MEDS ORDERED: BISACODYL 10 MG SUPP RC SCH (18:00)
--- NOTE | 2018-09-20 18:00 | NUR ---
PT GIVEN ORDERED DUE MEDICATION. PT TOLERATED WELL. WILL CONTINUE TO MONITOR.
--- NOTE | 2018-09-20 19:25 | NUR ---
GAVE REPORT TO CANDY PULLER NURSE FOR CONTINUITY OF CARE. PT IN STABLE CONDITION.
--- NOTE | 2018-09-20 19:26 | NUR ---
RECEIVED REPORT FROM DAY SHIFT NURSE SHABNAM-RN AT BEDSIDE. PT RESTING IN BED, AOX1- APHASIC AND CONFUSED, ON ROOM AIR WITH LEFT FOOT #22G RUNNING NS 0.45% @ 100ML/HR. BEDREST, LEFT SIDED WEAKNESS DUE TO CVA. NO S/S OF RESPIRATORY DISTRESS OR DISCOMFORT NOTED AT THIS TIME. BED IN LOWEST POSITION, BED BREAKS ON, BOTH SIDE RAILS WITH BOTH FALL AND SEIZURE PRECAUTIONS IN PLACE. WILL CONTINUE TO MONITOR.
[2018-09-20 20:00] VITALS: BP 110/77
--- NOTE | 2018-09-20 20:00 | NUR ---
VITAL SIGNS TAKEN AND TOLERATED WELL. BLOOD GLUCOSE 281- WILL ADMINISTER INSULIN COVERAGE. NO S/S OF RESPIRATORY DISTRESS OR DISCOMFORT NOTED AT THIS TIME. WILL CONTINUE TO MONITOR.
[2018-09-20] MEDS: DOCUSATE SODIUM 100 MG GELCAP PO SCH (20:38)
--- NOTE | 2018-09-20 20:48 | NUR ---
SCHEDULED MEDICATION GIVEN AND INSULIN COVERAGE GIVEN. PT TOLERATED WELL. NO S/S OF RESPIRATORY DISTRESS OR DISCOMFORT NOTED AT THIS TIME. WILL CONTINUE TO MONITOR.
[2018-09-20 21:48] LABS: POTASSIUM 4.5 mmol/L (3.5-5.1)
[2018-09-20 21:49] LABS: ANION GAP 19.8 (8-16); CARBON DIOXIDE 18.7 mmol/L (21-32); CREATININE 1.6 mg/dL (0.6-1.3)
--- NOTE | 2018-09-20 22:00 | NUR ---
PT CONTINUES TO REST IN BED WATCHING TV. NO S/S OF RESPIRATORY DISTRESS OR DISCOMFORT NOTED AT THIS TIME. WILL CONTINUE TO MONITOR.
[2018-09-21] VITALS: BP 138/88
--- NOTE | 2018-09-21 | NUR ---
VITAL SIGNS TAKEN AND TOLERATED WELL. NO S/S OF RESPIRATORY DISTRESS OR DISCOMFORT NOTED AT THIS TIME. WILL CONTINUE TO MONITOR.
[2018-09-21 01:58] LABS: ANION GAP 17.7 (8-16); CARBON DIOXIDE 21.3 mmol/L (21-32); CREATININE 1.4 mg/dL (0.6-1.3)
[2018-09-21] MEDS: NACL 0.45% 1,000 ML IV SCH ×2 (02:00→13:04)
--- NOTE | 2018-09-21 02:00 | NUR ---
PT CONTINUES TO SLEEP IN BED. NO S/S OF RESPIRATORY DISTRESS OR DISCOMFORT NOTED AT THIS TIME. WILL CONTINUE TO MONITOR.
[2018-09-21 04:00] VITALS: BP 129/92
--- NOTE | 2018-09-21 04:00 | NUR ---
PT CONTINUES TO SLEEP IN BED. NO S/S OF RESPIRATORY DISTRESS OR DISCOMFORT NOTED AT THIS TIME. WILL CONTINUE TO MONITOR.
[2018-09-21] MEDS: BLOOD GLUCOSE MONITORING 1 DEV DEV FS SCH ×4 (05:57→21:18)
[2018-09-21] MEDS: INSULIN LISPRO SLIDING SCALE 100 UNITS/ML VIAL SUBQ PRN ×4 (06:01→21:34)
--- NOTE | 2018-09-21 06:01 | NUR ---
BLOOD GLUCOSE 311- INSULIN COVERAGE GIVEN AND TOLERATED WELL. NO S/S OF RESPIRATORY DISTRESS OR DISCOMFORT NOTED AT THIS TIME. WILL CONTINUE TO MONITOR.
--- NOTE | 2018-09-21 07:14 | NUR ---
ENDORSED PT CARE TO DAY SHIFT NURSE OLAMIDE FOR CONTINUITY OF CARE.
--- NOTE | 2018-09-21 07:15 | NUR ---
RECEIVED REPORT FROM RF TEST ENGINEER NURSE. PT IN STABLE CONDITION. RESPIRATIONS EVEN AND UNLABORED. IV INTACT AND PATENT. SAFETY MEASURES IN PLACE. CALL LIGHT AT BEDSIDE. BED IN LOW POSITION. WILL CONTINUE TO MONITOR.
[2018-09-21 07:35] LABS: BASOPHILS % (AUTO) 0.2 % (0.0-2.0); EOSINOPHILS # (AUTO) 0.3 K/uL (0-0.4); EOSINOPHILS % (AUTO) 2.9 % (0.0-4.0); HEMATOCRIT 44.4 % (36-48); HEMOGLOBIN 13.4 g/dL (12.0-16.0); LYMPHOCYTES # (AUTO) 1.6 K/uL (2.5-16.5); MEAN CORPUSCULAR HEMOGLOBIN 28 pg (27-31); MEAN CORPUSCULAR HGB CONC 30 g/dL (33-37); MEAN CORPUSCULAR VOLUME 91.5 fL (80-94); MONOCYTES # (AUTO) 0.9 K/uL (0.8-1.0); MONOCYTES % (AUTO) 8.4 % (1.7-9.3); NEUTROPHILS # (AUTO) 7.7 K/uL (1.8-7.7); NEUTROPHILS % (AUTO) 73.5 % (42.2-75.2); PLATELET COUNT (AUTO) 260 K/uL (140-450); RED BLOOD CELL COUNT(AUTO) 4.85 MIL/uL (4.20-5.40); RED CELL DISTRIBUTION WIDTH 14.5 % (11.6-13.7); WHITE BLOOD COUNT (AUTO) 10.4 K/uL (4.8-10.8)
[2018-09-21] MEDS: ALBUTEROL SULFATE/IPRATROPIU 3 ML SOL IH SCH ×3 (07:48→19:24)
[2018-09-21 08:00] VITALS: BP 108/73
[2018-09-21 08:24] LABS: ANION GAP 16.1 (8-16); CARBON DIOXIDE 23.6 mmol/L (21-32); CREATININE 1.3 mg/dL (0.6-1.3); POTASSIUM 3.7 mmol/L (3.5-5.1)
[2018-09-21 08:34] LABS: MAGNESIUM 2.5 mg/dL (1.8-2.4); PHOSPHORUS 2.6 mg/dL (2.5-4.9)
--- NOTE | 2018-09-21 08:34 | NUR ---
CRITICAL RESULT SODIUM: 159 RESIDENT DOCTOR INFORMED. NO CHANGE IN ORDERS AT THIS TIME.
[2018-09-21] MEDS ORDERED: FUROSEMIDE 20 MG/2 ML VIAL IVP SCH (09:30)
[2018-09-21] MEDS: MONTELUKAST SODIUM 10 MG TAB PO SCH (09:57)
[2018-09-21] MEDS: VIT-B COMP/VIT-C/FOLIC ACID 1 TAB PO SCH (09:57)
[2018-09-21] MEDS: DOCUSATE SODIUM 100 MG GELCAP PO SCH ×2 (09:58→21:18)
[2018-09-21] MEDS: METHIMAZOLE 5 MG TAB PO SCH ×2 (09:58→21:19)
[2018-09-21] MEDS: FLUCONAZOLE 100 MG TAB PO SCH (09:58)
[2018-09-21] MEDS: ASPIRIN 81 MG TAB.CHEW PO SCH (09:58)
[2018-09-21] MEDS: DONEPEZIL 10 MG TAB PO SCH (09:58)
[2018-09-21] MEDS: lamoTRIgine 25 MG TAB PO SCH ×2 (09:58→21:19)
[2018-09-21] MEDS: FAMOTIDINE 20 MG TAB PO SCH (09:58)
[2018-09-21] MEDS: FERROUS SULFATE 325 MG TABEC PO SCH ×2 (10:01→17:40)
--- NOTE | 2018-09-21 10:59 | NUR ---
CRITICAL LAB: POSITIVE MRSA NARES. INFORMED DR. ORLANDO. CONTACT PRECAUTIONS ALREADY IN PLACE AT THIS TIME FOR MDRO URINE. WILL CONTINUE TO MONITOR.
[2018-09-21 12:00] VITALS: BP 120/85
--- NOTE | 2018-09-21 13:30 | NUR ---
PT IN STABLE CONDITION. RESPIRATIONS EVEN AND UNLABORED. LYING IN BED SLEEPING AT THIS TIME. WILL CONTINUE TO MONITOR.
--- NOTE | 2018-09-21 15:34 | NUR ---
ASSISTED WITH REPOSITIONING AND CLEANING. PT TOLERATED WELL. WILL CONTINUE TO MONITOR.
[2018-09-21 16:00] VITALS: BP 110/65
--- NOTE | 2018-09-21 17:00 | NUR ---
GAVE ORDERED DUE MEDICATIONS. PT TOLERATED WELL WILL CONTINUE TO MONITOR.
[2018-09-21] MEDS: metFORMIN 500 MG TAB PO SCH (17:40)
--- NOTE | 2018-09-21 19:26 | NUR ---
GAVE REPORT TO A AND P TECHNICIAN NURSE FOR CONTINUITY OF CARE. PT IN STABLE CONDITION.
--- NOTE | 2018-09-21 19:26 | NUR ---
RECEIVED REPORT FROM SHABNAM RN DAYSHIFT NURSE AT BEDSIDE FOR CONTINUITY OF CARE, PT IN STABLE CONDITION.
[2018-09-21 20:00] VITALS: BP 116/79
--- NOTE | 2018-09-21 20:00 | NUR ---
PT IN LOW BED SIDE RAILS UP X2 AND ALL FALLS PRECAUTIONS IN PLACE. PT AOX1, WITH SKIN INTACT. PT HAS POOR APPETITE AND CONSUMED ONLY THE JELLO AND LIQUID PARTS OF HER DINNER. (PT CONSUMED ABOUT 15% OF DINNER). PT HAS AN IV SITE ON LEFT FOOT 22G INTACT AND FLUSHED PATENT RUNNING 1/2 NS AT 100MLS/HR. PT V/S FOLLOWS T 98.2 P 107 R 18 B/P 116/79 02 97% ON ROOM AIR. LUNGS CLEAR AND BOWEL SOUNDS PRESENT BUT HYPOACTIVE. PT HAS NO S/S OF PAIN OR DISTRESS NOTED.PT F/S 267. WILL PROVIDE APPROPRIATE COVERAGE FOR BLOOD SUGAR.
--- NOTE | 2018-09-21 20:30 | NUR ---
PT GIVEN 6 UNITS OF HUMALOG FOR BLOOD SUGAR COVERAGE WELL ORDERED LANTUS 20UNITS. PT ALSO GIVEN SCHEDULED MEDICATIONS OF HEPARIN SQ, COLACE, LAMICTAL TAPAZOLE. PT MEDS CRUSHED WITH APPLE SAUCE. PT HOB LEFT ELEVATED AR 45% FOR ASPIRATION PRECAUTIONS.
--- NOTE | 2018-09-21 21:30 | NUR ---
PT TURNED CHANGED AND REPOSITIONED. ALL FALLS PRECAUTIONS IN PLACE. AND PT RESTING PEACEFULLY.
[2018-09-21] MEDS: INSULIN LANTUS 100 UNITS/ML 10 ML VIAL SUBQ SCH (21:42)
--- NOTE | 2018-09-21 23:00 | NUR ---
PT IN BED RESTING WITH EYES CLOSED NO S/S OF PAIN OR DISTRESS NOTED.
[2018-09-22] VITALS: BP 132/91
--- NOTE | 2018-09-22 01:00 | NUR ---
PT NOTED WITH SWELLING AND OF LEFT LEG. IV FLUIDS STOPPED AND PT LEFT LEG ELEVATED, CHARGE NURSE MADE AWARE. PT WAS TURNED AND CHANGED. NO S/S OF PAIN OR DISTRESS NOTED. V/S FOLLOWS T 98.1 P 110 R 20 B/P 132/91 02 97% WITH R/A.
[2018-09-22] MEDS: NACL 0.45% 1,000 ML IV SCH ×3 (01:24→21:05)
--- NOTE | 2018-09-22 04:00 | NUR ---
PT TURNED, CHANGED AND REPOSITIONED. NO S/S OF PAIN OR DISTRESS NOTED.
[2018-09-22] MEDS: BLOOD GLUCOSE MONITORING 1 DEV DEV FS SCH ×4 (06:18→21:00)
--- NOTE | 2018-09-22 06:30 | NUR ---
F/S IS 84. NO COVERAGE NEEDED.
[2018-09-22 06:57] LABS: BASOPHILS % (AUTO) 0.4 % (0.0-2.0); EOSINOPHILS # (AUTO) 0.3 K/uL (0-0.4); EOSINOPHILS % (AUTO) 2.6 % (0.0-4.0); HEMATOCRIT 44.8 % (36-48); HEMOGLOBIN 13.7 g/dL (12.0-16.0); LYMPHOCYTES # (AUTO) 2.1 K/uL (2.5-16.5); LYMPHOCYTES % (AUTO) 19.6 % (20.5-51.1); MEAN CORPUSCULAR HEMOGLOBIN 28 pg (27-31); MEAN CORPUSCULAR HGB CONC 31 g/dL (33-37); MEAN CORPUSCULAR VOLUME 90.5 fL (80-94); MONOCYTES % (AUTO) 9.5 % (1.7-9.3); NEUTROPHILS # (AUTO) 7.2 K/uL (1.8-7.7); NEUTROPHILS % (AUTO) 67.9 % (42.2-75.2); PLATELET COUNT (AUTO) 247 K/uL (140-450); RED BLOOD CELL COUNT(AUTO) 4.94 MIL/uL (4.20-5.40); RED CELL DISTRIBUTION WIDTH 14.4 % (11.6-13.7); WHITE BLOOD COUNT (AUTO) 10.6 K/uL (4.8-10.8)
[2018-09-22 07:31] LABS: MAGNESIUM 2.2 mg/dL (1.8-2.4); PHOSPHORUS 2.2 mg/dL (2.5-4.9)
[2018-09-22 07:33] LABS: ANION GAP 15.1 (8-16); CARBON DIOXIDE 23.5 mmol/L (21-32); CREATININE 1.4 mg/dL (0.6-1.3); POTASSIUM 3.6 mmol/L (3.5-5.1)
--- NOTE | 2018-09-22 07:35 | NUR ---
REPORT GIVEN TO VIC ALMAGUER DAYSHIFT NURSE AT BEDSIDE FOR CONTINUITY OF CARE, PT IN STABLE CONDITION.
--- NOTE | 2018-09-22 07:36 | NUR ---
RECEIVED BEDSIDE REPORT FROM ENROLLMENT MANAGEMENT DIRECTOR NURSE. PATIENT IS AWAKE, ALERT AND ORIENTEDX1. NO SIGNS OF DISTRESS ON RA. SKIN IS INTACT BUT LOW ABILIO. IV ON L ANKLE 20G INFILTRATED. REMOVED IV, TIP INTACT. WILL PLACE NEW IV. PATIENT HAS L SIDE WEAKNESS HX CVA. PATIENT BEDBOUND. FALL RISK PROTOCOL IN PLACE. PATIENT IS INCONTINENT. SEIZURE PRECAUTIONS IN PLACE. CONTACT PRECAUTIONS FOR MRSA NARES. BED IN LOW POSITION. CALL LIGHT WITHIN REACH. WILL CONTINUE TO MONITOR THE PATIENT
[2018-09-22 08:00] VITALS: BP 128/90
[2018-09-22] MEDS: ALBUTEROL SULFATE/IPRATROPIU 3 ML SOL IH SCH ×3 (08:04→19:34)
[2018-09-22] MEDS ORDERED: FLUCONAZOLE 100 MG TAB PO SCH (08:45)
[2018-09-22] MEDS ORDERED: MUPIROCIN 2% OINT 22 GM TUBE TP SCH (09:00)
[2018-09-22] MEDS: FERROUS SULFATE 325 MG TABEC PO SCH ×2 (09:18→18:14)
[2018-09-22] MEDS: METHIMAZOLE 5 MG TAB PO SCH ×2 (09:18→22:51)
[2018-09-22] MEDS: MONTELUKAST SODIUM 10 MG TAB PO SCH (09:19)
[2018-09-22] MEDS: VIT-B COMP/VIT-C/FOLIC ACID 1 TAB PO SCH (09:19)
[2018-09-22] MEDS: DONEPEZIL 10 MG TAB PO SCH (09:19)
[2018-09-22] MEDS: DOCUSATE SODIUM 100 MG GELCAP PO SCH ×2 (09:19→22:50)
[2018-09-22] MEDS: ASPIRIN 81 MG TAB.CHEW PO SCH (09:19)
[2018-09-22] MEDS: lamoTRIgine 25 MG TAB PO SCH ×2 (09:20→22:50)
[2018-09-22] MEDS: FAMOTIDINE 20 MG TAB PO SCH (09:20)
[2018-09-22] MEDS: metFORMIN 500 MG TAB PO SCH ×2 (09:21→18:16)
[2018-09-22] MEDS: CHLORHEXADINE GLUC 2% CLOTH TP SCH (09:47)
--- NOTE | 2018-09-22 09:52 | NUR ---
MEDS ADMINISTERED. PATIENT TOLERATED WELL. WILL CONTINUE TO MONITOR THE PATIENT
--- NOTE | 2018-09-22 11:00 | NUR ---
PATIENT SLEEPING. WILL CONTINUE TO MONITOR THE PATIENT
[2018-09-22] MEDS: INSULIN LISPRO SLIDING SCALE 100 UNITS/ML VIAL SUBQ PRN ×2 (12:26→23:11)
--- NOTE | 2018-09-22 13:00 | NUR ---
PATIENT SITTING IN BED. NO SIGNS OF DISTRESS ON RA. BED IN LOW POSITION. CALL LIGHT WITHIN REACH. BED ALARM ON
--- NOTE | 2018-09-22 15:42 | NUR ---
ADMINISTERED MEDS. PATIENT TOLERATED WELL. WILL CONTINUE TO MONITOR THE PATIENT
[2018-09-22 16:00] VITALS: BP 136/78
--- NOTE | 2018-09-22 17:44 | NUR ---
PATIENT IS SLEEPING. NO SIGNS OF DISTRESS. WILL CONTINUE TO MONITOR THE PATIENT
--- NOTE | 2018-09-22 19:00 | NUR ---
GAVE BEDSIDE REPORT TO CONSULTANT NURSE. PATIENT ENDORSED IN STABLE CONDITION
--- NOTE | 2018-09-22 19:00 | NUR ---
RECEIVED ENDORSEMENT FORM PADMA ALMAGUER DAYSHIFT NURSE AT BEDSIDE FOR CONTINUITY OF CARE. PT RESTING IN STABLE CONDITION.
--- NOTE | 2018-09-22 19:00 | NUR ---
REPORT RECEIVED AT BEDSIDE FROM MANINDER ALMAGUER DAYSHIFT NURSE, PT IN STABLE CONDITION.
--- NOTE | 2018-09-22 20:00 | NUR ---
PT IN BED ALL FALLS AND SEIZURE PRECAUTIONS IN PLACE. PT HAD PULLED OUT IV SITE ON UPPER LEFT ARM WITH CANULA INTACT. V/S FOLLOWS T 97.2 P 95 R 18 B/P 116/72 02 97% WITH ROOM AIR AND FINGERSTICK 194.
--- NOTE | 2018-09-22 21:00 | NUR ---
PT GIVEN ALL DUE MEDS OF LAMICTAL, TAPAZOLE HEPARIN , LANTUS AND 2UNITS OF HUMALOG COVERAGE. PT SPIT OUT COLACE.PT WAS TURNED, CHANGED AND REPOSITIONED. NO S/S OF PAIN OR DISTRESS NOTED.
[2018-09-22] MEDS: INSULIN LANTUS 100 UNITS/ML 10 ML VIAL SUBQ SCH (23:06)
--- NOTE | 2018-09-23 00:54 | NUR ---
PT IN BED V/S FOLLOWS T 97.6 P 95 R 18 B/P 102/76 02 96% ON R/A. PT TURNED ,CHANGED AND REPOSITIONED. BED LOW AND ALL FALLS AND SEIZURE PRECAUTIONS IN PLACE.
[2018-09-23 06:23] LABS: BASOPHILS # (AUTO) 0.1 K/uL (0.00-0.22); BASOPHILS % (AUTO) 0.8 % (0.0-2.0); EOSINOPHILS # (AUTO) 0.3 K/uL (0-0.4); EOSINOPHILS % (AUTO) 3.6 % (0.0-4.0); HEMATOCRIT 37.9 % (36-48); HEMOGLOBIN 11.7 g/dL (12.0-16.0); LYMPHOCYTES # (AUTO) 1.8 K/uL (2.5-16.5); LYMPHOCYTES % (AUTO) 24.8 % (20.5-51.1); MEAN CORPUSCULAR HEMOGLOBIN 28 pg (27-31); MEAN CORPUSCULAR HGB CONC 31 g/dL (33-37); MEAN CORPUSCULAR VOLUME 89.5 fL (80-94); MONOCYTES # (AUTO) 0.7 K/uL (0.8-1.0); MONOCYTES % (AUTO) 9.2 % (1.7-9.3); NEUTROPHILS # (AUTO) 4.5 K/uL (1.8-7.7); NEUTROPHILS % (AUTO) 61.6 % (42.2-75.2); PLATELET COUNT (AUTO) 149 K/uL (140-450); RED BLOOD CELL COUNT(AUTO) 4.23 MIL/uL (4.20-5.40); RED CELL DISTRIBUTION WIDTH 14.4 % (11.6-13.7); WHITE BLOOD COUNT (AUTO) 7.3 K/uL (4.8-10.8)
[2018-09-23] MEDS: NACL 0.45% 1,000 ML IV SCH ×2 (06:30→07:05)
[2018-09-23] MEDS: BLOOD GLUCOSE MONITORING 1 DEV DEV FS SCH ×2 (06:37→12:26)
[2018-09-23 07:27] LABS: ANION GAP 13.6 (8-16); CARBON DIOXIDE 23.5 mmol/L (21-32); CREATININE 1.1 mg/dL (0.6-1.3); POTASSIUM 4.1 mmol/L (3.5-5.1)
[2018-09-23 07:31] LABS: MAGNESIUM 2.3 mg/dL (1.8-2.4)
--- NOTE | 2018-09-23 07:40 | NUR ---
REPORT GIVEN TO SHABNAM ALMAGUER DAYSHIFT NURSE AT BEDSIDE FOR CONTINUITY OF CARE, PT IN STABLE CONDITION.
--- NOTE | 2018-09-23 07:41 | NUR ---
RECEIVED REPORT FROM INTERIOR SYSTEMS CARPENTER NURSE. PT IN STABLE CONDITION. RESPIRATIONS EVEN AND UNLABORED. IV INTACT AND PATENT. SAFETY MEASURES IN PLACE. CALL LIGHT AT BEDSIDE. BED IN LOW POSITION. WILL CONTINUE TO MONITOR.
[2018-09-23] MEDS: ALBUTEROL SULFATE/IPRATROPIU 3 ML SOL IH SCH ×2 (07:42→14:17)
[2018-09-23] MEDS ORDERED: MUPIROCIN 2% OINT 22 GM TUBE TP SCH (07:57)
[2018-09-23 08:00] VITALS: BP 120/69
--- NOTE | 2018-09-23 09:15 | NUR ---
GAVE ORDERED DUE MEDICATIONS. PT TOLERATED WELL. WILL CONTINUE TO MONITOR.
[2018-09-23] MEDS: ASPIRIN 81 MG TAB.CHEW PO SCH (10:24)
[2018-09-23] MEDS: DOCUSATE SODIUM 100 MG GELCAP PO SCH (10:24)
[2018-09-23] MEDS: VIT-B COMP/VIT-C/FOLIC ACID 1 TAB PO SCH (10:25)
[2018-09-23] MEDS: lamoTRIgine 25 MG TAB PO SCH (10:25)
[2018-09-23] MEDS: FAMOTIDINE 20 MG TAB PO SCH (10:25)
[2018-09-23] MEDS: MONTELUKAST SODIUM 10 MG TAB PO SCH (10:25)
[2018-09-23] MEDS: DONEPEZIL 10 MG TAB PO SCH (10:26)
[2018-09-23] MEDS: metFORMIN 500 MG TAB PO SCH (10:26)
[2018-09-23] MEDS: METHIMAZOLE 5 MG TAB PO SCH (10:26)
[2018-09-23] MEDS: CHLORHEXADINE GLUC 2% CLOTH TP SCH (10:28)
[2018-09-23] MEDS ORDERED: SODIUM PHOS / POTASSIUM PHOS 1 PKT PDR PO SCH (11:00)
--- NOTE | 2018-09-23 11:20 | NUR ---
Clinicals faxed to [facility] .
[2018-09-23] MEDS: FERROUS SULFATE 325 MG TABEC PO SCH (11:51)
--- NOTE | 2018-09-23 11:53 | NUR ---
Manager Integrated Note: Per Jaylene from [facility] , patient may return to room 11B any time today, accepting physician is , charge nurse Preethi made aware.
--- NOTE | 2018-09-23 11:55 | NUR ---
Transportation arranged with [place] spoke with Mady Pt will be picked up at 1630 and transported to [facility] 11B address: [address] [place] [id number]. Informed Candis Nagy RN for the time of supervisor [facility] unable to pay [facility]. Billed to [facility].
[2018-09-23 12:00] VITALS: BP 126/72
--- NOTE | 2018-09-23 12:10 | NUR ---
ASSISTED WITH REPOSITIONING, PT TOLERATED WELL. WILL CONTINUE TO MONITOR.
--- NOTE | 2018-09-23 14:30 | NUR ---
SPOKE WITH CHARY Olmedo FROM [facility]. REPORT GIVEN FOR CONTINUITY OF CARE. ALL QUESTIONS ANSWERED AT THIS TIME. CHARY VERBALIZED UNDERSTANDING OF REPORT GIVEN.
--- NOTE | 2018-09-23 16:00 | NUR ---
GAVE DISCHARGE INSTRUCTIONS, ALL QUESTIONS ANSWERED AT THIS TIME. IV DISCONNECTED, SALINE LOCK IN PLACE. GAVE DISCHARGE INSTRUCTIONS TO TRANSPORT TEAM. ID BAND REMOVED. PT WHEELED OUT ON GURNEY IN STABLE CONDITION.
== END 2018-09-23 16:00 | DRG 720 ==
LOC: MED 12:52 → MTU 16:52
PROVIDERS: ADMIT Family Medicine; ATTEND Family Medicine
DX: A41.9 Sepsis, unspecified organism (principal); N17.0 Acute kidney failure with tubular necrosis; E43 Unspecified severe protein-calorie malnutrition; J69.0 Pneumonitis due to inhalation of food and vomit; G93.41 Metabolic encephalopathy; K85.10 Biliary acute pancreatitis without necrosis or infection; R53.2 Functional quadriplegia; E87.0 Hyperosmolality and hypernatremia; E11.51 Type 2 diabetes mellitus with diabetic peripheral angiopathy without gangrene; I50.9 Heart failure, unspecified; N39.0 Urinary tract infection, site not specified; E83.41 Hypermagnesemia; K21.9 Gastro-esophageal reflux disease without esophagitis; M81.0 Age-related osteoporosis without current pathological fracture; E05.90 Thyrotoxicosis, unspecified without thyrotoxic crisis or storm; E11.65 Type 2 diabetes mellitus with hyperglycemia; E86.0 Dehydration; G40.909 Epilepsy, unspecified, not intractable, without status epilepticus; I11.0 Hypertensive heart disease with heart failure; F02.80 Dementia in other diseases classified elsewhere, unspecified severity, without behavioral disturbance, psychotic disturbance, mood disturbance, and anxiety; G30.9 Alzheimer's disease, unspecified; I69.365 Other paralytic syndrome following cerebral infarction, bilateral; J43.9 Emphysema, unspecified; J98.11 Atelectasis; K59.00 Constipation, unspecified; D64.9 Anemia, unspecified; N28.1 Cyst of kidney, acquired; Z87.891 Personal history of nicotine dependence; Z79.82 Long term (current) use of aspirin; Z79.4 Long term (current) use of insulin; Z79.84 Long term (current) use of oral hypoglycemic drugs; Z79.899 Other long term (current) drug therapy; Z68.1 Body mass index [BMI] 19.9 or less, adult
CPT/HCPCS: 36415; 70450; 71045; 71250; 74018; 80048; 80053; 80305; 81001; 82948; 83036; 83605; 83690; 83735; 83880; 84100; 84443; 84484; 85025; 85610; 85730; 87040; 87081; 87086; 93005; 94640; 96361; 96365; 99285; J0696; J1644; J1815; J1940; J7060; J7120; J7620; Q0092

== ENCOUNTER 2018-10-03 08:18 | Inpatient (IN) | payer MEDICAID, MEDICARE ==
[~2018-10-03] VITALS: Ht 165.1 cm; Wt 52.2 kg
[~2018-10-03 08:18] MED LIST changes: -ALEN70TA PO; -CEPH250C16 PO; -KEN.1C TP; -LABE100T20 PO; -LACT1.4C PO; -PRED20TA5 PO
--- NOTE | 2018-10-03 08:19 | NUR ---
PT BIBA ALS TO BED 10
[2018-10-03 08:24] VITALS: BP 109/72
--- NOTE | 2018-10-03 08:30 | NUR ---
A 68 yo f biba amr als from [facility] w/ c/o aloc since 0700 this morning. per facility, pt is normally gcs 14. blood sugar 137 in the field.gcs : 8 upon arrival . pt w/ sinus tachycardia 113 at this time. last sz last night per facility. Pt. has rr even and unlabored. o2: 90% ra initiated 2l via nc. 3mm perrla bilat. droop to l side of face per als crew " they said that is normal for her". safety precautions implemented. seizure precautions in place. hob elevated. ER made aware. bs: 144 at this time. Will continue to monitor. hx dm, sz, htn, alzheimers, osteoporosis, heart failure, recurrent utis rx aricept, metformin, asa, iron, novolin, singulair, tapazole, triamcinolone
[2018-10-03] MEDS ORDERED: NACL 0.9% 1,000 ML IV ONE (08:50)
--- NOTE | 2018-10-03 08:55 | NUR ---
lab at bedside
--- NOTE | 2018-10-03 09:03 | NUR ---
pt. taken to ct scan via [place] by sue
[2018-10-03 09:04] LABS: BASOPHILS # (AUTO) 0.1 K/uL (0.00-0.22); BASOPHILS % (AUTO) 0.9 % (0.0-2.0); EOSINOPHILS # (AUTO) 0.1 K/uL (0-0.4); EOSINOPHILS % (AUTO) 0.9 % (0.0-4.0); HEMATOCRIT 37.3 % (36-48); HEMOGLOBIN 11.7 g/dL (12.0-16.0); LYMPHOCYTES % (AUTO) 14.2 % (20.5-51.1); MEAN CORPUSCULAR HEMOGLOBIN 28 pg (27-31); MEAN CORPUSCULAR HGB CONC 31 g/dL (33-37); MONOCYTES # (AUTO) 1.5 K/uL (0.8-1.0); MONOCYTES % (AUTO) 10.3 % (1.7-9.3); NEUTROPHILS # (AUTO) 10.4 K/uL (1.8-7.7); NEUTROPHILS % (AUTO) 73.7 % (42.2-75.2); PLATELET COUNT (AUTO) 453 K/uL (140-450); RED BLOOD CELL COUNT(AUTO) 4.24 MIL/uL (4.20-5.40); RED CELL DISTRIBUTION WIDTH 14.5 % (11.6-13.7); WHITE BLOOD COUNT (AUTO) 14.1 K/uL (4.8-10.8)
[2018-10-03 09:09] LABS: ANION GAP 15.7 (8-16); CARBON DIOXIDE 23.3 mmol/L (21-32)
[2018-10-03] MEDS ORDERED: KETOROLAC 30 MG/ML VIAL IVP ONE (09:15)
[2018-10-03 09:22] LABS: PROTHROMBIN TIME 10.7 secs (10.8-13.4)
[2018-10-03 09:24] LABS: ALBUMIN 3.2 g/dL (3.4-5.0); TOTAL BILIRUBIN 0.3 mg/dL (0.0-1.0)
--- NOTE | 2018-10-03 10:00 | NUR ---
PT. HOB ELEVATED, VSS. SAFETY PRECAUTIONS IN PLACE. WILL CONTINUE TO MONITOR.
[2018-10-03] MEDS ORDERED: cefTRIAXone 1,000 MG VIAL ONE (10:10)
[2018-10-03] MEDS ORDERED: NACL 0.9% 1,000 ML IV SCH (10:13)
[2018-10-03] MEDS ORDERED: HYDROcodone/APAP 7.5/325 MG 1 TAB PO PRN (10:15)
[2018-10-03] MEDS ORDERED: INSULIN LISPRO SLIDING SCALE 100 UNITS/ML VIAL SUBQ PRN (10:15)
[2018-10-03] MEDS ORDERED: DEXTROSE 50% 50 ML SYR IVP PRN (10:15)
[2018-10-03] MEDS ORDERED: ONDANSETRON 4 MG/2 ML VIAL IVP PRN (10:15)
[2018-10-03] MEDS ORDERED: ACETAMINOPHEN 325 MG TAB PO PRN (10:15)
[2018-10-03 10:19] LABS: BILIRUBIN,URINE NEGATIVE (NEGATIVE); BLOOD, URINE 3+ (NEGATIVE); COLOR,URINE YELLOW (YELLOW); LEUKOCYTE ESTERASE ,URINE 3+ (NEGATIVE); NITRITE, URINE NEGATIVE (NEGATIVE); UGLUCOSE NEGATIVE (NEGATIVE)
[2018-10-03 10:20] LABS: APPEARANCE,URINE SLIGHTLY HAZY (CLEAR)
[2018-10-03 10:21] LABS: RBC,URINE 11-20 (MOD) /HPF (0-5)
[2018-10-03 10:22] LABS: WBC,URINE 60-80 /HPF (0-5)
--- NOTE | 2018-10-03 11:01 | NUR ---
PT TAKEN TO TELE FLOOR BY TRIPP HALL AND EMT GRECIA
[2018-10-03 11:13] LABS: PHOSPHORUS 3.9 mg/dL (2.5-4.9); THYROID STIMULATING HORMONE 3.04 uIU/mL (0.34-3.74)
--- NOTE | 2018-10-03 11:16 | NUR ---
Patient will be admitted to care of JOHANNY. Admited to TELE . Will go to room 116. Belongings list completed. Report to TRIPP BADILLO .
--- NOTE | 2018-10-03 11:30 | NUR ---
RECEIVED PT REPORT FROM FRONT EDGER. PT IS AAOx1. NO S/S OF SOB OR DISTRESS NOTED ON RM AIR. ON CONTACT PRECAUTIONS FOR HX MRSA NARES. SKIN INTACT, SMALL DRY SCAB ON LEFT KNEE. IV SITE NOTED ON RIGHT UA, 24 G, PATENT AND INTACT. ROMERO CATH IN PLACE, DRAINING CLOUDY YELLOW URINE. MRSA SWAB DONE. FALL PRECAUTIONS INITIATED. BED IN THE LOWEST POSITION, CALL LIGHT WITHIN REACH. WILL CONTINUE TO MONITOR.
[2018-10-03 12:00] VITALS: BP 120/82
[2018-10-03] MEDS: BLOOD GLUCOSE MONITORING 1 DEV DEV FS SCH ×3 (12:14→21:00)
[2018-10-03] MEDS ORDERED: KEN.1C TP (13:21)
[2018-10-03] MEDS ORDERED: FERR-13 PO (13:21)
[2018-10-03] MEDS ORDERED: DONE10TA10 PO (13:21)
[2018-10-03] MEDS ORDERED: INSU100S5 IJ (13:21)
[2018-10-03 16:00] VITALS: BP 118/79
--- NOTE | 2018-10-03 16:15 | NUR ---
PT KEPT ON BENDING HER RIGHT ARM, IV STOPS INFUSING WHEN SHE BENT HER ARM. TAUGHT PT SEVERAL TIMES NOT TO BEND HER RIGHT ARM TOO MUCH, HOWEVER, PT HAS DEMENTIA, UNABLE TO UNDERSTAND. PLACED ARM BOARD FOR THE RIGHT ARM.
[2018-10-03] MEDS: metFORMIN 500 MG TAB PO SCH (17:43)
--- NOTE | 2018-10-03 18:00 | NUR ---
PT HAS POOR APPETITE, EATEN 10% OF THE MEAL. NOTIFIED DR CHAU.
[2018-10-03] MEDS: DEXT 5% /NACL 0.9% 1,000 ML IV SCH (19:03)
--- NOTE | 2018-10-03 19:20 | NUR ---
RECEIVED BEDSIDE REPORT FROM TRIPP BADILLO, PATIENT IN BED ON CONTACT PRECAUTIONS, AAOX1, ON RA, NO SIGNS OF ACUTE DISTRESS, IV IN RIGHT UPPER ARM 24 G, INFUSING D5/NS AT 60 ML/HR. V/S TAKEN ALL WITHIN BASELINE, ATTEMPTED TO CHECK BLOOD GLUCOSE PATIENT KEPT MOVING HAND AWAY IN A REFUSING MANNER. ATTEMPTED TO GIVE APPLE SAUCE TO SEE IF PATIENT WILL TAKE MEDS, PATIENT REFUSED APPLE SAUCE BY SPITTING IT OUT. PLACED BED ALARM ON, WILL CONTINUE TO MONITOR.
--- NOTE | 2018-10-03 19:20 | NUR ---
ENDORSED PT TO PUMP INSTALLATION AND SERVICER. PT IN STABLE CONDITION.
[2018-10-03 20:00] VITALS: BP 130/80
--- NOTE | 2018-10-03 20:19 | NUR ---
* ST NOTE * Pt seen at bedside. Pt alert but moderately cooperative, appearing to not be in pain at this time d/t lack of facial grimacing, groaning, etc. Pt initially refusing therapeutic feeding trials at this time, but after receiving maximal verbal, tactile & visual cues from the clinician, eventually accepting PO feeding trials. Bedside dysphagia and oral mechanism exams completed. See evaluation report for further details. Pt tolerating 3/3 alternating PO trials of 1-2 CCs of puree apple sauce via a spoon as well as 8/8 alternating PO trials of successive sips of thin liquid apple juice via a straw, all w/o s/s of aspiration or choking. Pt and caregiver/nsg education completed re: aspiration precautions and safe swallow compensatory strategies pt and caregivers/nsg could utilize to aid pt w/swallow function, w/pt indifferent but nsg verbalizing understanding and agreement w/clinician's recommendations. Lastly nsg also educated re: pt's preferences of visually seeing bolus on spoon or straw of drink first, and tasting small samples of bolus on spoon first, prior to accepting puree textures. It is thus recommended pt's PO diet consistency remain as puree textures w/thin liquids w/aspiration precautions in place. No further ST follow up recommended at this time. Pt and caregiver/nsg education completed re: results of evaluation; benefits of abiding by aspiration precautions and recommended PO diet consistency; and prognosis for improvement; with pt indifferent but caregiver/nsg verbalizing understanding and agreement w/clinician's recommendations. Recommend: - PO DIET CONSISTENCY OF PUREE TEXTURES W/THIN LIQUIDS for all meals - PO MEDICATION ADMINISTRATION CRUSHED IN PUREE TEXTURES - Maintain ASPIRATION PRECAUTIONS DURING PT'S PO INTAKE - Pt requires total assistance w/feeding - Feeder to SIT PT UP AT 70-90 DEGREE ANGLE DURING PO INTAKE; FEED PT SLOWLY, ALTERNATING BTWN SOLIDS & LIQUIDS; AND UTILIZING SMALL BITES/SIPS No further ST follow up recommended at this time. NOMS Level 3
[2018-10-03] MEDS: FERROUS SULFATE 325 MG TABEC PO SCH (21:00)
[2018-10-03] MEDS: TRIAMCINOLONE 0.1% CRM 15 GM TUBE TP SCH (21:00)
[2018-10-03] MEDS ORDERED: lamoTRIgine 25 MG TAB PO SCH (21:00)
[2018-10-03] MEDS: DOCUSATE SODIUM 100 MG GELCAP PO SCH (21:00)
[2018-10-03] MEDS: DONEPEZIL 10 MG TAB PO SCH (21:00)
[2018-10-03] MEDS: METHIMAZOLE 5 MG TAB PO SCH (21:00)
--- NOTE | 2018-10-03 21:00 | NUR ---
ATTEMPTED TO GIVE PATIENT APPLE SAUCE PATIENT REFUSING. WILL GIVE MEDS WHEN PATIENT IS WILLING TO SWALLOW APPLE SAUCE. EDUCATION PROVIDED, PATIENT DID NOT RESPOND.
--- NOTE | 2018-10-03 22:24 | NUR ---
PATIENT ATE SOME APPLE SAUCE, MEDICATIONS CRUSHED AND PLACED IN APPLE SAUCE, FEED PATIENT SOME, PATIENT SPIT OUT SOME MEDICATIONS AND REFUSED TO FINISH ALL MEDICATIONS.
--- NOTE | 2018-10-04 | NUR ---
V/S TAKEN ALL WITHIN BASELINE PATIENT SHOWS NO SIGNS OF PAIN WILL CONTINUE TO MONITOR.
--- NOTE | 2018-10-04 02:00 | NUR ---
PATIENT ATTEMPTED TO GET OUT OF BED, EDUCATION PROVIDED, BED ALARM ON, WILL CONTINUE WITH FREQ CHECKS.
[2018-10-04 04:00] VITALS: BP 115/90
--- NOTE | 2018-10-04 04:00 | NUR ---
V/S TAKEN ALL WITHIN BASELINE WILL CONTINUE TO MONITOR.
--- NOTE | 2018-10-04 05:17 | NUR ---
PATIENT REFUSED ACC CHECK, WILL CONTINUE TO MONITOR.
[2018-10-04] MEDS: BLOOD GLUCOSE MONITORING 1 DEV DEV FS SCH ×4 (05:23→21:00)
--- NOTE | 2018-10-04 05:48 | NUR ---
PATIENT SCREAMING NO AND MOVING ARM AWAY FROM EXTRACTOR LOADER AND UNLOADER RADHIKA. PATIENT DID NOT HAVE VENIPUNCTURE PREFORMED.
--- NOTE | 2018-10-04 07:29 | NUR ---
ENDORSED PATIENT TO DAY SHIFT NURSE JUSTINO, PATIENT STABLE.
--- NOTE | 2018-10-04 07:30 | NUR ---
RECEIVED PT REPORT FROM PRODUCT MANAGEMENT INTERNSHIP RN AT BEDSIDE. PT IS AAOX1, MORE ALERT THAN YESTERDAY. NO S/S OF ACUTE DISTRESS NOTED ON ROOM AIR. IV IN RIGHT UPPER ARM 24 G, INFUSING D5/NS AT 60 ML/HR. ACCORDING TO PRODUCT MANAGEMENT INTERNSHIP NURSE PT REFUSED BLOOD DRAW AND ACCU CHECK. FALL PRECAUTION IN PLACE, WILL CONTINUE TO MONITOR.
[2018-10-04 07:46] VITALS: BP 138/86
--- NOTE | 2018-10-04 07:50 | NUR ---
PT IS VERY CONFUSED, TRYING TO GET OUT OF BED. PLACED PT BACK TO BED. PT UNABLE TO COMPREHEND SAFETY TEACHING.
--- NOTE | 2018-10-04 08:00 | NUR ---
PATIENT HAS BEEN SCREENED AND CATEGORIZED HIGH NUTRITION RISK. PATIENT WILL BE SEEN WITHIN 1-2 DAYS OF ADMISSION. 10/04/[address]
[2018-10-04] MEDS: lamoTRIgine 25 MG TAB PO SCH ×2 (08:17→21:24)
[2018-10-04] MEDS: metFORMIN 500 MG TAB PO SCH ×2 (08:22→17:00)
[2018-10-04] MEDS: METHIMAZOLE 5 MG TAB PO SCH ×2 (08:22→21:24)
[2018-10-04] MEDS: MULTIVITAMIN 1 TAB PO SCH (08:26)
[2018-10-04] MEDS: FERROUS SULFATE 325 MG TABEC PO SCH ×2 (08:26→21:24)
[2018-10-04] MEDS: DOCUSATE SODIUM 100 MG GELCAP PO SCH ×2 (08:26→21:24)
[2018-10-04] MEDS: MONTELUKAST SODIUM 10 MG TAB PO SCH (08:33)
[2018-10-04] MEDS: ASPIRIN 81 MG TAB.CHEW PO SCH (08:36)
[2018-10-04] MEDS: LACTOBACILLUS RHAMNOSUS GG 1 EACH CAP PO SCH (08:36)
[2018-10-04] MEDS ORDERED: NON-FORMULARY ITEM (Multivitamin (Multi-Vitamins) 1 TAB) PO SCH (09:00)
--- NOTE | 2018-10-04 11:30 | NUR ---
10/04/18 RD INITIAL ASSESSMENT COMPLETED PLEASE REFER TO NUTRITION ASSESSMENT UNDER CARE ACTIVITY FOR ESTIMATED NUTRITIONAL NEEDS. 1. CONTINUE 60 GM CCHO PUREE CARDIAC GLUCERNA BID DIET TOLERATED 2. RD TO FOLLOW UP ON ADEQUATE PO INTAKE 3. RD TO FOLLOW-UP 3-5 DAYS, MODERATE RISK ALEE SCHAEFFER, RD
[2018-10-04] MEDS: DEXT 5% /NACL 0.9% 1,000 ML IV SCH (12:18)
--- NOTE | 2018-10-04 13:43 | NUR ---
PATIENT IS RESTING ON BED. NO SIGNS OF DISTRESS NOTE. SAFETY MEASURES IN PLACE. WILL CONTINUE TO MONITOR.
[2018-10-04] MEDS: NACL 0.9% 1,000 ML IV SCH (13:59)
--- NOTE | 2018-10-04 15:31 | NUR ---
PT TOO AGITATED TO BE ABLE TO GET ECHO DONE AT THIS TIME. NOTIFIED DR. RUFFIN AND DR. RUBIO.
[2018-10-04 16:00] VITALS: BP 137/85
--- NOTE | 2018-10-04 18:00 | NUR ---
PT REFUSED TO FED. HOWEVER, PT EATING INDEPENDENTLY, STANDBY ASSISTANCE PROVIDED. PT MADE A MESS TO THE BED LINENS. ALL LINENS WERE CHANGED. PT'S GOWN WAS CHANGED TOO.
--- NOTE | 2018-10-04 19:15 | NUR ---
GAVE BEDSIDE REPORT TO TANKAGE SUPERVISOR FOR CONTINUITY OF CARE. PATIENT IS STABLE. NO SIGNS OF DISTRESS NOTED.
--- NOTE | 2018-10-04 19:17 | NUR ---
RECEIVED BEDSIDE REPORT FROM TRIPP BADILLO, PATIENT IN BED ON CONTACT PRECAUTIONS, AAOX1, NOT ABLE TO FOLLOW SIMPLE COMMANDS, ON RA, NO SIGNS OF ACUTE DISTRESS, IV IN RIGHT UPPER ARM 24 G, INFUSING D5/NS AT 60 ML/HR. V/S TAKEN ALL WITHIN BASELINE, ATTEMPTED TO CHECK BLOOD GLUCOSE PATIENT KEPT MOVING HAND AWAY IN A REFUSING MANNER. PLACED BED ALARM ON, WILL CONTINUE TO MONITOR.
[2018-10-04] MEDS: DONEPEZIL 10 MG TAB PO SCH (21:24)
--- NOTE | 2018-10-04 21:24 | NUR ---
DUE MEDICATIONS GIVEN, WILL CONTINUE TO MONITOR. PATIENT SPIT OUT SOME MEDICATIONS WITH APPLESAUCE. PATIENT DID NOT RECEIVE COMPLETE MEDICATION DOSES DUE TO REFUSAL.
[2018-10-04] MEDS: TRIAMCINOLONE 0.1% CRM 15 GM TUBE TP SCH (21:25)
--- NOTE | 2018-10-04 22:30 | NUR ---
PATIENT ATTEMPTING TO GET OUT OF BED, ALL SAFETY MEASURES IN PLACE, WILL CONTINUE TO MONITOR.
--- NOTE | 2018-10-04 23:44 | NUR ---
ENDORSED PATIENT TO RELATIONS MGR NURSE MARY JO THOMAS
--- NOTE | 2018-10-04 23:45 | NUR ---
V/S TAKEN ALL WITHIN BASELINE WILL CONTINUE TO MONITOR.
--- NOTE | 2018-10-04 23:46 | NUR ---
RECEIVED REPORT FROM RN SUMMER FOR CONTINUOUS OF CARE, PT RESTING, NO DISTRESS NOTED, CALL LIGHT WITHIN REACH, WILL CONTINUE TO MONITOR.
[2018-10-05] VITALS: BP 130/75
--- NOTE | 2018-10-05 04:10 | NUR ---
CHECKED ON PT, PT SLEEPING, CALL LIGHT WITHIN REACH, WILL CONTINUE TO MONITOR.
[2018-10-05] MEDS: NACL 0.9% 1,000 ML IV SCH (06:20)
--- NOTE | 2018-10-05 06:20 | NUR ---
CHECKED PT BLOOD SUGAR 50, D 50 GIVEN, PT TOLERATED WELL, WILL RECHECK BLOOD SUGAR IN 15 MINUTES
[2018-10-05] MEDS: BLOOD GLUCOSE MONITORING 1 DEV DEV FS SCH ×2 (06:42→11:59)
--- NOTE | 2018-10-05 06:42 | NUR ---
CHECKED PT BLOOD SUGAR 136, PT RESTING, NO DISTRESS NOTED, CALL LIGHT WITHIN REACH, WILL CONTINUE TO MONITOR.
[2018-10-05 06:50] LABS: BASOPHILS # (AUTO) 0.1 K/uL (0.00-0.22); BASOPHILS % (AUTO) 1.2 % (0.0-2.0); EOSINOPHILS # (AUTO) 0.3 K/uL (0-0.4); EOSINOPHILS % (AUTO) 3.5 % (0.0-4.0); HEMATOCRIT 37.4 % (36-48); HEMOGLOBIN 11.7 g/dL (12.0-16.0); LYMPHOCYTES # (AUTO) 2.2 K/uL (2.5-16.5); LYMPHOCYTES % (AUTO) 26.2 % (20.5-51.1); MEAN CORPUSCULAR HEMOGLOBIN 28 pg (27-31); MEAN CORPUSCULAR HGB CONC 31 g/dL (33-37); MEAN CORPUSCULAR VOLUME 89.1 fL (80-94); MONOCYTES # (AUTO) 0.9 K/uL (0.8-1.0); NEUTROPHILS # (AUTO) 4.9 K/uL (1.8-7.7); NEUTROPHILS % (AUTO) 58.1 % (42.2-75.2); PLATELET COUNT (AUTO) 431 K/uL (140-450); RED CELL DISTRIBUTION WIDTH 14.3 % (11.6-13.7); WHITE BLOOD COUNT (AUTO) 8.5 K/uL (4.8-10.8)
--- NOTE | 2018-10-05 07:17 | NUR ---
ENDORSED PT TO DAY SHIFT NURSE CHARLES ALAMGUER, PT STABLE, NO DISTRESS NOTED, CALL LIGHT WITHIN REACH, WILL CONTINUE TO MONITOR/
--- NOTE | 2018-10-05 07:18 | NUR ---
RECEIVED REPORT FROM HEAD RIGGER NURSE. PATIENT LYING DOWN IN BED COMFORTABLY. AAOX1, CONFUSED. NO DISTRESS NOTED. FLACC 0. COOPERATIVE, SKIN COLOR APPROPRIATE TO ETHNICITY, WARM TO TOUCH. SKIN IS INTACT. ROMERO CATHETER IN PLACE. NO SEIZURES, NO NAUSEA/VOMITING REPORTED BY HEAD RIGGER. RESPIRATIONS EVEN, UNLABORED, ON ROOM AIR. ABDOMEN SOFT, NON-DISTENDED. IV SITE INTACT, PATENT, AND INFUSING IVF PER MD ORDERS. SAFETY MEASURES IN PLACE, CALL LIGHT WITHIN REACH. WILL CONTINUE TO MONITOR.
[2018-10-05 07:53] LABS: ANION GAP 14.5 (8-16); CREATININE 0.8 mg/dL (0.6-1.3); POTASSIUM 3.5 mmol/L (3.5-5.1)
[2018-10-05 07:54] LABS: MAGNESIUM 1.6 mg/dL (1.8-2.4); PHOSPHORUS 3.2 mg/dL (2.5-4.9)
[2018-10-05 08:00] VITALS: BP 136/82
[2018-10-05] MEDS: metFORMIN 500 MG TAB PO SCH (08:00)
[2018-10-05] MEDS: MONTELUKAST SODIUM 10 MG TAB PO SCH (09:05)
[2018-10-05] MEDS: lamoTRIgine 25 MG TAB PO SCH (09:05)
[2018-10-05] MEDS: ASPIRIN 81 MG TAB.CHEW PO SCH (09:06)
[2018-10-05] MEDS: LACTOBACILLUS RHAMNOSUS GG 1 EACH CAP PO SCH (09:06)
[2018-10-05] MEDS: METHIMAZOLE 5 MG TAB PO SCH (09:06)
[2018-10-05] MEDS: MULTIVITAMIN 1 TAB PO SCH (09:06)
[2018-10-05] MEDS: FERROUS SULFATE 325 MG TABEC PO SCH (09:06)
[2018-10-05] MEDS: DOCUSATE SODIUM 100 MG GELCAP PO SCH (09:15)
--- NOTE | 2018-10-05 09:22 | NUR ---
PATIENT SITTING IN BED. NO DISTRESS NOTED. FLACC 0. SCHEDULED MEDICATIONS DUE GIVEN. WILL CONTINUE TO MONITOR.
[2018-10-05] MEDS ORDERED: MAG SULF 2000 MG/WATER PREMIX 50 ML IV SCH (09:55)
--- NOTE | 2018-10-05 11:14 | NUR ---
CALLED [facility] FOR A BED PATIENT WILL GO TO RM 11B, REPORT GIVEN TO MONIQUE SANDERS.
--- NOTE | 2018-10-05 11:17 | NUR ---
ASSISTED SORT WORKER IN CLEANING AND REPOSITIONING PATIENT. DR. ORLANDO AT BEDSIDE REVIEWING PLAN OF CARE WITH PATIENT. WILL CONTINUE TO MONITOR.
[2018-10-05] MEDS ORDERED: LAM25 PO (11:32)
--- NOTE | 2018-10-05 12:40 | NUR ---
DISCHARGE INSTRUCTIONS GIVEN TO PATIENT IN PREFERRED LANGUAGE OF OCCITAN, UNABLE TO COMPREHEND DUE CONFUSION AND ALZHEIMER'S HISTORY. WILL CALL NIGEL BEAVER TO GIVE DISCHARGE INSTRUCTIONS REPORT. WILL CONTINUE TO MONITOR.
--- NOTE | 2018-10-05 13:01 | NUR ---
CALLED PATIENT'S SON GINGER NEGRO TO NOTIFY HIM THAT PATIENT WAS BEING TRANSFERRED BACK TO [facility] TODAY. GINGER VERBALIZED COMPLETE UNDERSTANDING. CALLED NIGEL BEAVER AT [phone] AND GAVE REPORT TO MONIQUE SANDERS REGARDING PATIENT'S STATUS AND DISCHARGE INSTRUCTIONS. ANSWERED ALL OF TOMMY'S QUESTIONS REGARDING TRANSFER. NOTIFIED TOMMY OF [facility] PICKUP TIME OF 1300. TOMMY VERBALIZED COMPLETE UNDERSTANDING AND TO AWAIT FOR PATIENT'S TRANSFER.
--- NOTE | 2018-10-05 13:40 | NUR ---
[facility] ON UNIT READY TO TAKE PATIENT TO [facility]. ALL BELONGINGS WITH PATIENT. IV SITE REMOVED WITH MINIMAL BLOOD AND LUMEN COMPLETELY INTACT. ID BANDS REMOVED. REPORT GIVEN TO [facility]. PATIENT DISCHARGE AT THIS TIME TO [facility] IN STABLE CONDITION VIA [facility].
== END 2018-10-05 13:36 | DRG 720 ==
LOC: MED 08:18 → MTU 10:13
PROVIDERS: ADMIT Family Medicine; ATTEND Family Medicine
DX: A41.9 Sepsis, unspecified organism (principal); G82.50 Quadriplegia, unspecified; G93.41 Metabolic encephalopathy; G30.9 Alzheimer's disease, unspecified; I50.9 Heart failure, unspecified; F02.80 Dementia in other diseases classified elsewhere, unspecified severity, without behavioral disturbance, psychotic disturbance, mood disturbance, and anxiety; J44.9 Chronic obstructive pulmonary disease, unspecified; N39.0 Urinary tract infection, site not specified; E11.65 Type 2 diabetes mellitus with hyperglycemia; E05.90 Thyrotoxicosis, unspecified without thyrotoxic crisis or storm; I11.0 Hypertensive heart disease with heart failure; G40.909 Epilepsy, unspecified, not intractable, without status epilepticus; D64.9 Anemia, unspecified; E83.42 Hypomagnesemia; E87.0 Hyperosmolality and hypernatremia; K21.9 Gastro-esophageal reflux disease without esophagitis; M81.0 Age-related osteoporosis without current pathological fracture; Z79.4 Long term (current) use of insulin; Z93.1 Gastrostomy status; Z79.899 Other long term (current) drug therapy; Z87.891 Personal history of nicotine dependence; I69.354 Hemiplegia and hemiparesis following cerebral infarction affecting left non-dominant side
CPT/HCPCS: 36415; 70450; 71045; 80048; 80053; 81001; 82140; 82150; 82550; 82553; 82948; 83605; 83690; 83735; 83880; 84100; 84439; 84443; 84484; 85025; 85610; 85730; 87040; 87081; 87086; 92526; 93005; 93880; 96361; 96365; 99285; J0696; J1644; J1815; J1885; J3475; J7030; J7042; J7060; Q0092

== ENCOUNTER 2018-10-28 07:40 | Inpatient (IN) | payer MEDICAID, MEDICARE ==
[~2018-10-28] VITALS: Ht 167.6 cm; Wt 49.9 kg
[~2018-10-28 07:40] MED LIST changes: +ASPI-1718 PO; -ASPI81CT89 PO; +FERR-13 PO; -FERROUS SULFATE PO; -FLOV250 INH; -HYDR-1093 GT; -INSU100S22 SUBQ; +KEN.1C TP
[2018-10-28 07:45] VITALS: BP 110/79
--- NOTE | 2018-10-28 08:07 | NUR ---
XENIA FROM [facility]. PER EMS PT HAS LETHAGIC AT 5 AM TODAY. PT CAN OPEN HER EYES BUT UNABLE AT TO TALLK. BLOOD SUGAR 200. HX: DM, ANEMIA,HTN, OLD CVA,RA,DEMENTIA, SIEZURE
[2018-10-28 08:52] LABS: HEMATOCRIT 45.4 % (36-48); MEAN CORPUSCULAR HEMOGLOBIN 27 pg (27-31); MEAN CORPUSCULAR HGB CONC 31 g/dL (33-37); MEAN CORPUSCULAR VOLUME 88.6 fL (80-94); PLATELET COUNT (AUTO) 372 K/uL (140-450); RED BLOOD CELL COUNT(AUTO) 5.13 MIL/uL (4.20-5.40); RED CELL DISTRIBUTION WIDTH 14.7 % (11.6-13.7); WHITE BLOOD COUNT (AUTO) 22.1 K/uL (4.8-10.8)
[2018-10-28] MEDS ORDERED: NACL 0.9% 1,000 ML IV SCH ×3 (08:54→13:00)
[2018-10-28] MEDS ORDERED: PIPERACILLIN/TAZOBACTAM 3.375 GM in DEXT 5% MINI-BAG PLUS 50 ML IV ONE (08:55)
--- NOTE | 2018-10-28 09:01 | NUR ---
RT AT BEDSIDE PREFORMING ABG
[2018-10-28] MEDS ORDERED: PIPERACILLIN/TAZOBACTAM 3.375 GM VIAL IV ONE (09:11)
[2018-10-28 09:12] LABS: ANION GAP 20.7 (8-16); CARBON DIOXIDE 21.7 mmol/L (21-32); CREATININE 2.4 mg/dL (0.6-1.3); POTASSIUM 4.4 mmol/L (3.5-5.1); TOTAL BILIRUBIN 0.8 mg/dL (0.0-1.0)
[2018-10-28 09:14] LABS: PROTHROMBIN TIME 13.3 secs (10.8-13.4)
[2018-10-28 09:15] LABS: LYMPHOCYTES % (MANUAL) 15 % (20-46); MONOCYTES % (MANUAL) 8 % (5-12)
[2018-10-28 09:36] LABS: MAGNESIUM 2.6 mg/dL (1.8-2.4)
[2018-10-28 09:46] LABS: ACETONE, SERUM TRACE (NEGATIVE)
--- NOTE | 2018-10-28 09:47 | NUR ---
STRAIGHT CATHED PATIENT. LOCATION VERIFIED BY SECOND RN, PADMA. DIAPER WET. NO URINE OBTAINED AT THIS TIME.
[2018-10-28] MEDS ORDERED: NACL 0.9% 2,000 ML IV SCH (10:39)
[2018-10-28] MEDS ORDERED: GENTAMICIN 80 MG in DEXTROSE 5% 100 ML IV ONE (10:40)
--- NOTE | 2018-10-28 10:45 | NUR ---
PATIENT REPOSTIONED IN BED, NO OTHER NEEDS ASSESSED AT THIS TIME.
[2018-10-28] MEDS ORDERED: GENTAMICIN 80 MG/2 ML VIAL ONE (10:55)
[2018-10-28] MEDS ORDERED: ACETAMINOPHEN 325 MG TAB PO PRN (11:25)
[2018-10-28] MEDS ORDERED: HYDROcodone/APAP 7.5/325 MG 1 TAB PO PRN (11:25)
[2018-10-28] MEDS ORDERED: ONDANSETRON 4 MG/2 ML VIAL IVP PRN (11:25)
--- NOTE | 2018-10-28 12:15 | NUR ---
RECEIVED PT FROM ED NURSE LIZZETTE. PT IS AWAKE BUT CONFUSED. NO S/S OF ACUTE DISTRESS NOTED, NO SOB. PT IS ON 2L O2 NC. SKIN IS DRY AND INTACT. PT HAS AN IV IN THE R EJ, 20 G, PATENT AND INTACT. VS ARE STABLE. MRSA SWAB COLLECTED. PT'S FLU AND PNA VACCINES ARE UP TO DATE. FALL AND SEIZURE PRECAUTIONS IN PLACE. CALL LIGHT GIVEN WITHIN REACH. WILL CONTINUE TO MONITOR PT.
--- NOTE | 2018-10-28 12:16 | NUR ---
PATIENT TAKEN TO ROOM 123-B FOR CONTINUED CARE AND TELE MONITORING UNDER THE CARE OF DR FUENTES. PATIENT STABLE DURING TRANSFER. REPORT GIVEN TO HR LEADERGERI.
[2018-10-28 12:30] VITALS: BP 122/85
[2018-10-28] MEDS ORDERED: LORazepam 2 MG/ML VIAL IM/IVP PRN (13:00)
[2018-10-28] MEDS ORDERED: DEXTROSE 50% 50 ML SYR IVP PRN (13:00)
[2018-10-28] MEDS ORDERED: ALBUTEROL SULFATE/IPRATROPIU 3 ML SOL IH PRN (13:05)
[2018-10-28] MEDS ORDERED: PIPER/TAZO 2.25GM/D5W PREMIX 50 ML IV SCH (13:12)
[2018-10-28 13:17] LABS: FREE T4 (FREE THYROXINE) 1.03 ng/dL (0.76-1.46); PHOSPHORUS 5.2 mg/dL (2.5-4.9); THYROID STIMULATING HORMONE 8.08 uIU/mL (0.34-3.74)
--- NOTE | 2018-10-28 13:40 | NUR ---
ATTEMPTED TO STRAIGHT CATH PT, UNABLE TO DRAIN ANY URINE AT THIS TIME. PER ED NURSE, SHE WAS UNABLE TO GET ANY URINE EARLIER EITHER. WILL TRY TO STRAIGHT CATH AGAIN LATER.
[2018-10-28 15:02] LABS: ANION GAP 20.2 (8-16); CARBON DIOXIDE 21.6 mmol/L (21-32); CREATININE 2.4 mg/dL (0.6-1.3); POTASSIUM 3.8 mmol/L (3.5-5.1)
--- NOTE | 2018-10-28 15:40 | NUR ---
MD NOTIFIED OF PT'S CRITICAL LAB OF SODIUM 160. TO ADJUST MEDICATIONS.
[2018-10-28 16:00] VITALS: BP 110/61
--- NOTE | 2018-10-28 16:15 | NUR ---
PT STRAIGHT CATHED AND WAS ABLE TO OBTAIN URINE FOR ANALYSIS. URINE SENT TO LAB. ALSO, PT WAS SEVERELY IMPACTED; PT DIGITALLY DISIMPACTED. STOOL WAS HARD AND DRY.
[2018-10-28 16:22] LABS: APPEARANCE,URINE SL CLOUDY (CLEAR); BILIRUBIN,URINE NEGATIVE (NEGATIVE); BLOOD, URINE 2+ (NEGATIVE); COLOR,URINE YELLOW (YELLOW); LEUKOCYTE ESTERASE ,URINE 2+ (NEGATIVE); NITRITE, URINE NEGATIVE (NEGATIVE); PH,URINE 5.5 (5.0-9.0); UGLUCOSE NEGATIVE (NEGATIVE)
[2018-10-28 16:24] LABS: RBC,URINE 80-100 /HPF (0-5); WBC,URINE 80-100 /HPF (0-5)
[2018-10-28] MEDS: BLOOD GLUCOSE MONITORING 1 DEV DEV FS SCH ×2 (16:46→20:50)
[2018-10-28] MEDS: INSULIN LISPRO SLIDING SCALE 100 UNITS/ML VIAL SUBQ PRN ×2 (16:57→20:49)
--- NOTE | 2018-10-28 18:10 | NUR ---
PT REFUSED DINNER. PT WAS CHANGED AND REPOSITIONED IN BED. NO S/S OF ACUTE DISTRESS OR SOB. CALL LIGHT WITHIN REACH.
[2018-10-28] MEDS: NACL 0.45% 1,000 ML IV SCH (19:05)
--- NOTE | 2018-10-28 19:25 | NUR ---
PT ENDORSED TO MERCERIZING RANGE FEEDER IN STABLE CONDITION.
--- NOTE | 2018-10-28 19:27 | NUR ---
RECEIVED PT FROM OVI RN KKPT OPEN EYES ,LETHARGIC ON TELEMETRY SR IV ON RT IJ INFUSING WELL IV FLUIDS, REPOSITIONED INITIAL ASSESSMENT DONE
[2018-10-28 20:00] VITALS: BP 109/68
[2018-10-28] MEDS: PIPER/TAZO 2.25GM/D5W PREMIX 50 ML IV SCH (20:54)
[2018-10-28] MEDS: lamoTRIgine 25 MG TAB PO SCH (20:55)
[2018-10-28] MEDS: DONEPEZIL 10 MG TAB PO SCH (20:55)
[2018-10-28] MEDS: FERROUS SULFATE 325 MG TABEC PO SCH (20:56)
[2018-10-28] MEDS: METHIMAZOLE 5 MG TAB PO SCH (20:57)
[2018-10-28] MEDS ORDERED: FERROUS SULFATE 325 MG TABEC PO SCH (21:00)
[2018-10-28] MEDS: DOCUSATE SODIUM 100 MG GELCAP PO SCH (21:02)
--- NOTE | 2018-10-28 21:45 | NUR ---
BLOOD SUGAR TEST 162 COVERAGE WITH 2 UNITS SUBQ HUMALOG FOLLOWING PROTOCOL, PT REPOSITIONED Q2H AND LINEN CHANGEDS NECESSARY
[2018-10-28 23:18] LABS: CARBON DIOXIDE 22.8 mmol/L (21-32); POTASSIUM 3.7 mmol/L (3.5-5.1)
[2018-10-28 23:19] LABS: ANION GAP 17.9 (8-16); CREATININE 2.1 mg/dL (0.6-1.3)
[2018-10-29] VITALS: BP 106/65
--- NOTE | 2018-10-29 | NUR ---
PT LETHARGIC, REPOSITIONED Q2H ON TELEMETRY SR IV ON RT IJ INFUSING WELL, NOT SOB NOTED
--- NOTE | 2018-10-29 03:53 | NUR ---
SPONGE BATH GIVEN , LINEN CHANGED, REPOSITIONED OPEN EYES FOLLOW SIMPLE COMMANDS ON TELEMETRY SR
[2018-10-29 04:00] VITALS: BP 100/65
[2018-10-29] MEDS: PIPER/TAZO 2.25GM/D5W PREMIX 50 ML IV SCH ×3 (04:58→22:02)
[2018-10-29] MEDS: NACL 0.45% 1,000 ML IV SCH ×2 (04:58→16:04)
[2018-10-29] MEDS: BLOOD GLUCOSE MONITORING 1 DEV DEV FS SCH ×4 (05:41→21:00)
--- NOTE | 2018-10-29 05:51 | NUR ---
PT MORE AWAKE, FOLLOW SIMPLES COMMANDS ON TELEMETRY SR, REPOSITIONED Q2H NOT SOB NOTED IV ON RT IJ INFUSING WELL
--- NOTE | 2018-10-29 06:18 | NUR ---
PT OPEN EYES RESPONDING CALLING HER NAME, PT IS A FEEDER ON TEL SR NOT DISTRESS NOTED AT THIS TIME
--- NOTE | 2018-10-29 07:23 | NUR ---
RECEIVED REPORT FROM SUPERVISOR FELLING BUCKING NURSE. PT IN STABLE CONDITION. RESPIRATIONS EVEN AND UNLABORED. IV INTACT AND PATENT. SAFETY MEASURES IN PLACE. BED IN LOW POSITION. CALL LIGHT AT BEDSIDE. WILL CONTINUE TO MONITOR.
[2018-10-29 08:00] VITALS: BP 104/66
--- NOTE | 2018-10-29 08:18 | NUR ---
PATIENT HAS BEEN SCREENED AND CATEGORIZED HIGH NUTRITION RISK. PATIENT WILL BE SEEN WITHIN 1-2 DAYS OF ADMISSION. 10/29/[address]
[2018-10-29 08:24] LABS: LYMPHOCYTES # (AUTO) 1.3 K/uL (2.5-16.5)
[2018-10-29 08:29] LABS: BASOPHILS % (AUTO) 0.2 % (0.0-2.0); EOSINOPHILS % (AUTO) 0.3 % (0.0-4.0); HEMOGLOBIN 11.1 g/dL (12.0-16.0); MEAN CORPUSCULAR HEMOGLOBIN 27 pg (27-31); MEAN CORPUSCULAR HGB CONC 30 g/dL (33-37); MEAN CORPUSCULAR VOLUME 90.2 fL (80-94); MONOCYTES % (AUTO) 7.7 % (1.7-9.3); NEUTROPHILS # (AUTO) 10.8 K/uL (1.8-7.7); NEUTROPHILS % (AUTO) 81.8 % (42.2-75.2); PLATELET COUNT (AUTO) 307 K/uL (140-450); WHITE BLOOD COUNT (AUTO) 13.2 K/uL (4.8-10.8)
[2018-10-29 08:32] LABS: MAGNESIUM 2.4 mg/dL (1.8-2.4); PHOSPHORUS 3.8 mg/dL (2.5-4.9)
--- NOTE | 2018-10-29 09:00 | NUR ---
GAVE ORDERED DUE MEDICATIONS. PT TOLERATED WELL. WILL CONTINUE TO MONITOR.
[2018-10-29] MEDS: DOCUSATE SODIUM 100 MG GELCAP PO SCH ×2 (09:53→21:56)
[2018-10-29] MEDS: lamoTRIgine 25 MG TAB PO SCH ×2 (09:53→21:56)
[2018-10-29] MEDS: ASPIRIN 81 MG TAB.CHEW PO SCH (09:53)
[2018-10-29] MEDS: MONTELUKAST SODIUM 10 MG TAB PO SCH (09:53)
[2018-10-29] MEDS: METHIMAZOLE 5 MG TAB PO SCH ×2 (09:54→21:57)
[2018-10-29] MEDS: FERROUS SULFATE 325 MG TABEC PO SCH ×2 (09:54→21:56)
[2018-10-29] MEDS: PANTOPRAZOLE 40 MG INJ VIAL IVP SCH (09:55)
--- NOTE | 2018-10-29 10:40 | NUR ---
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 Pinky stated patient's son Mateo is her health care decision maker. She reported patient has poor fluid intake at their facility. Pinky told me they encourage patient to eat and drink fluids, however, at times she refuses. She stated she is planning to speak with regarding the possibility of placing a G-tube. She reported she will find out if patient has been referred to a urologist and let me know.
[2018-10-29 11:12] LABS: ANION GAP 16.8 (8-16); CARBON DIOXIDE 22.9 mmol/L (21-32); POTASSIUM 3.7 mmol/L (3.5-5.1)
[2018-10-29 11:13] LABS: CREATININE 1.9 mg/dL (0.6-1.3)
--- NOTE | 2018-10-29 11:15 | NUR ---
CRITICAL LAB RESULT SODIUM 161, BUN 63. RESULTS DOWN FROM SODIUM 162, BUN 66. WILL CONTINUE TO MONITOR
[2018-10-29 11:21] LABS: CHOL/HDL RATIO 5.1 (1-4.5)
[2018-10-29 12:00] VITALS: BP 110/67
--- NOTE | 2018-10-29 13:19 | NUR ---
10/29/18 RD INITIAL ASSESSMENT COMPLETED PLEASE REFER TO NUTRITION ASSESSMENT UNDER CARE ACTIVITY FOR ESTIMATED NUTRITIONAL NEEDS. 1. RECOMMEND 60 GM CCHO, CARDIAC PUREE DIET 2. RECOMMEND GLUCERNA BID 3. RECOMMEND SWALLOW EVALUATION 4. RD TO FOLLOW-UP 2-3 DAYS, HIGH RISK ALEE SCHAEFFER, RD
--- NOTE | 2018-10-29 13:47 | NUR ---
Receiving Weigher Note: Per Pinky from [facility] , has referred patient to a urologist in the past and will consider referring her to urologist again. She stated will also consider placing G-tube since patient has poor fluid intake at [facility].
--- NOTE | 2018-10-29 14:14 | NUR ---
PT AWAKE AND ALERT AT THIS TIME. PT REQUESTING HELP WITH WATER, AND DRANK 2 CUPS OF WATER AND TOLERATING WELL. WILL CONTINUE TO MONITOR.
[2018-10-29 15:12] LABS: ANION GAP 15.6 (8-16); CARBON DIOXIDE 21.4 mmol/L (21-32); CREATININE 1.7 mg/dL (0.6-1.3)
[2018-10-29 16:00] VITALS: BP 106/67
--- NOTE | 2018-10-29 16:45 | NUR ---
PT LYING IN BED SLEEPING. RESPIRATIONS EVEN AND UNLABORED. WILL CONTINUE TO MONITOR. BED ALARM ON. BED IN LOW POSITION. CALL LIGHT AT BEDSIDE.
--- NOTE | 2018-10-29 17:45 | NUR ---
PT REFUSED TO EAT AT THIS TIME. WILL CONTINUE TO MONITOR.
--- NOTE | 2018-10-29 18:53 | NUR ---
WILL ENDORSE TO WATER TREATMENT PLANT ENGINEER FOR CONTINUITY OF CARE. PT IN STABLE CONDITION.
--- NOTE | 2018-10-29 19:15 | NUR ---
RECD. RESTING IN BED, AWAKE, ALERT, OX1, RESPIRATION EVEN AND UNLABORED. IV OF 1/2 NS AT 100 ML/HR INFUSING, RIGHT IJ G20. ON ROOM AIR BUT SATURATING 94-96%. SAFETY MEASURES ENFORCED. SIDE RAILS PADDED. ON BILATERAL LEG SEQUENTIALS. REORIENTED TO HOSPITAL SETTING, PLAN OF CARE DISCUSSED. NEEDS REINFORCEMENT. NO APPEARANCE OF PAIN NOTED 0/10.
[2018-10-29 20:00] VITALS: BP 102/59
--- NOTE | 2018-10-29 21:55 | NUR ---
DUE PO MEDICATIONS CRUSHED AND GIVEN WITH APPLE SAUCE, TOLERATED WELL.
[2018-10-29] MEDS: DONEPEZIL 10 MG TAB PO SCH (21:57)
--- NOTE | 2018-10-29 23:44 | NUR ---
Patient's Plan of Care was discussed and reviewed with DAIRY CATTLE FARMER: SELENA PALACIOS.
[2018-10-30] VITALS: BP 103/55
--- NOTE | 2018-10-30 | NUR ---
SLEEPING COMFORTABLY IN BED.
[2018-10-30] MEDS: NACL 0.45% 1,000 ML IV SCH ×2 (00:45→10:05)
[2018-10-30 04:00] VITALS: BP 104/62
--- NOTE | 2018-10-30 05:00 | NUR ---
HAD A LARGE BM. CLEANSED AND MADE COMFORTABLE IN BED.
[2018-10-30] MEDS: PIPER/TAZO 2.25GM/D5W PREMIX 50 ML IV SCH ×3 (05:55→21:21)
[2018-10-30] MEDS: BLOOD GLUCOSE MONITORING 1 DEV DEV FS SCH ×4 (06:34→21:34)
[2018-10-30 06:52] LABS: ANION GAP 14.3 (8-16); CREATININE 1.2 mg/dL (0.6-1.3); POTASSIUM 3.3 mmol/L (3.5-5.1)
[2018-10-30 07:13] LABS: HEMATOCRIT 33.2 % (36-48); HEMOGLOBIN 10.1 g/dL (12.0-16.0); MEAN CORPUSCULAR VOLUME 89.4 fL (80-94); RED BLOOD CELL COUNT(AUTO) 3.72 MIL/uL (4.20-5.40); WHITE BLOOD COUNT (AUTO) 9.2 K/uL (4.8-10.8)
[2018-10-30 07:14] LABS: BASOPHILS # (AUTO) 0.1 K/uL (0.00-0.22); EOSINOPHILS # (AUTO) 0.2 K/uL (0-0.4); EOSINOPHILS % (AUTO) 2.5 % (0.0-4.0); LYMPHOCYTES # (AUTO) 1.2 K/uL (2.5-16.5); LYMPHOCYTES % (AUTO) 12.8 % (20.5-51.1); MEAN CORPUSCULAR HEMOGLOBIN 27 pg (27-31); MEAN CORPUSCULAR HGB CONC 30 g/dL (33-37); MONOCYTES # (AUTO) 0.7 K/uL (0.8-1.0); MONOCYTES % (AUTO) 7.4 % (1.7-9.3); NEUTROPHILS # (AUTO) 7.1 K/uL (1.8-7.7); NEUTROPHILS % (AUTO) 76.3 % (42.2-75.2); PLATELET COUNT (AUTO) 287 K/uL (140-450); RED CELL DISTRIBUTION WIDTH 14.3 % (11.6-13.7)
--- NOTE | 2018-10-30 07:15 | NUR ---
CONDITION REMAIN STABLE. ENDORSED TO AM NURSE FOR CONTINUITY OF CARE.
--- NOTE | 2018-10-30 07:16 | NUR ---
RECEIVED BEDSIDE REPORT FROM ADON NURSE SELENA. PATIENT ON ROOM AIR WITH NO DISTRESS NOTED. PATIENT SLEEPING AT THIS TIME. ON TELE MONITOR AND STANDARD PRECAUTIONS. UNABLE TO AMBULATE AND INCONTINENT. CENTRAL LINE R IJ INFUSING 1/2 NS AT 100. FALL RISK PROTOCOL IN PLACE. BED IN LOW POSITION, CALL LIGHT WITHIN REACH. WILL CONTINUE TO MONITOR.
[2018-10-30 07:31] LABS: MAGNESIUM 2.1 mg/dL (1.8-2.4); PHOSPHORUS 2.1 mg/dL (2.5-4.9)
[2018-10-30 08:00] VITALS: BP 100/61
[2018-10-30] MEDS: ASPIRIN 81 MG TAB.CHEW PO SCH (09:50)
[2018-10-30] MEDS: FERROUS SULFATE 325 MG TABEC PO SCH ×2 (09:50→21:14)
[2018-10-30] MEDS: lamoTRIgine 25 MG TAB PO SCH ×2 (09:51→21:14)
[2018-10-30] MEDS: METHIMAZOLE 5 MG TAB PO SCH ×2 (09:51→21:14)
[2018-10-30] MEDS: DOCUSATE SODIUM 100 MG GELCAP PO SCH ×2 (09:51→21:15)
[2018-10-30] MEDS: PANTOPRAZOLE 40 MG INJ VIAL IVP SCH (09:52)
[2018-10-30] MEDS: MONTELUKAST SODIUM 10 MG TAB PO SCH (09:52)
--- NOTE | 2018-10-30 10:17 | NUR ---
ADMINISTERED SCHEDULED MEDS. PATIENT TOLERATED WELL. WILL CONTINUE TO MONITOR.
[2018-10-30] MEDS ORDERED: POTASSIUM CHL 20 MEQ/ 1/2 NS 1,000 ML IV SCH (11:10)
[2018-10-30 12:00] VITALS: BP 114/72
--- NOTE | 2018-10-30 12:02 | NUR ---
PATIENT SLEEPING. BLOOD SUGAR OF 124. NO COVERAGE NEEDED. WILL CONTINUE TO MONITOR.
--- NOTE | 2018-10-30 15:00 | NUR ---
PATIENT SLEEPING. ON ROOM AIR, NO DISTRESS NOTED. WILL CONTINUE TO MONITOR.
[2018-10-30 16:00] VITALS: BP 111/69
[2018-10-30] MEDS: CALCIUM ACETATE 667 MG TAB PO SCH (17:36)
--- NOTE | 2018-10-30 17:41 | NUR ---
PATIENT WATCHING TV. NO DISTRESS NOTED ON ROOM AIR. WILL CONTINUE TO MONITOR.
[2018-10-30] MEDS ORDERED: POTASSIUM CHLORIDE 20 MEQ in NACL 0.45% 1,000 ML IV SCH (18:45)
[2018-10-30 19:08] LABS: ANION GAP 17.1 (8-16); CARBON DIOXIDE 21.3 mmol/L (21-32); CREATININE 1.1 mg/dL (0.6-1.3); POTASSIUM 4.4 mmol/L (3.5-5.1)
--- NOTE | 2018-10-30 19:20 | NUR ---
GAVE BEDSIDE REPORT TO ALLEY CLEANER NURSE. PATIENT ENDORSED IN STABLE CONDITION.
--- NOTE | 2018-10-30 19:21 | NUR ---
RECEIVED BEDSIDE REPORT FROM AM SHIFT NURSE. AWAKE, ALERT X 1. NONVERBAL, UNABLE TO AMBULATE. ON TELE MONITOR. W/ MRSA NARES POSITIVE. ON CONTACT ISOLATION. NO RESPIRATORY DISTRESS. NO S/S OF PAIN AND DISCOMFORT. R EXTERNAL JUGULAR VEIN INFUSING KCL WITH 1/2 NS AT 100. FALL RISK PROTOCOL IN PLACE. BED IN LOWEST POSITION, CALL LIGHT WITHIN REACH. WILL CONTINUE TO MONITOR.
[2018-10-30 20:00] VITALS: BP 137/78
[2018-10-30] MEDS: DONEPEZIL 10 MG TAB PO SCH (21:15)
--- NOTE | 2018-10-30 21:30 | NUR ---
PT VOIDED ONCE CLEAR URINE. PT DRANK 2-3 GLASSES OF WATER. NO S/S AT THIS TIME.
--- NOTE | 2018-10-30 21:35 | NUR ---
INFORMED DR. LEON LATEST POTASSIUM LEVEL RESULT IS 4.4 MG/DL. ORDERED TO D/C KCL IV W/ /2 NS INFUSION.
[2018-10-30] MEDS: INSULIN LISPRO SLIDING SCALE 100 UNITS/ML VIAL SUBQ PRN (21:41)
[2018-10-31] VITALS: BP 110/60
[2018-10-31 04:00] VITALS: BP 114/63
[2018-10-31] MEDS: PIPER/TAZO 2.25GM/D5W PREMIX 50 ML IV SCH ×3 (04:39→20:35)
[2018-10-31] MEDS: BLOOD GLUCOSE MONITORING 1 DEV DEV FS SCH ×4 (05:41→20:38)
[2018-10-31] MEDS: NACL 0.45% 1,000 ML IV SCH ×2 (06:35→19:05)
[2018-10-31 06:40] LABS: ANION GAP 12.1 (8-16); CARBON DIOXIDE 22.6 mmol/L (21-32); CREATININE 0.9 mg/dL (0.6-1.3); POTASSIUM 3.7 mmol/L (3.5-5.1)
[2018-10-31 06:47] LABS: BASOPHILS % (AUTO) 0.4 % (0.0-2.0); EOSINOPHILS # (AUTO) 0.3 K/uL (0-0.4); EOSINOPHILS % (AUTO) 3.4 % (0.0-4.0); HEMATOCRIT 33.5 % (36-48); HEMOGLOBIN 10.2 g/dL (12.0-16.0); LYMPHOCYTES # (AUTO) 1.2 K/uL (2.5-16.5); LYMPHOCYTES % (AUTO) 14.1 % (20.5-51.1); MAGNESIUM 1.8 mg/dL (1.8-2.4); MEAN CORPUSCULAR HEMOGLOBIN 27 pg (27-31); MEAN CORPUSCULAR HGB CONC 30 g/dL (33-37); MEAN CORPUSCULAR VOLUME 89.2 fL (80-94); MONOCYTES # (AUTO) 0.8 K/uL (0.8-1.0); MONOCYTES % (AUTO) 9.7 % (1.7-9.3); NEUTROPHILS # (AUTO) 6.3 K/uL (1.8-7.7); NEUTROPHILS % (AUTO) 72.4 % (42.2-75.2); PHOSPHORUS 1.7 mg/dL (2.5-4.9); PLATELET COUNT (AUTO) 285 K/uL (140-450); RED BLOOD CELL COUNT(AUTO) 3.75 MIL/uL (4.20-5.40); RED CELL DISTRIBUTION WIDTH 14.4 % (11.6-13.7); WHITE BLOOD COUNT (AUTO) 8.7 K/uL (4.8-10.8)
--- NOTE | 2018-10-31 07:19 | NUR ---
RECEIVED BEDSIDE REPORT FROM TRIPP WAY. PATIENT SLEEPING AT THIS TIME. ON ROOM AIR, NO DISTRESS NOTED. SKIN INTACT. ON TELE MONITOR AND CONTACT PRECAUTIONS IN PLACE FOR MRSA (+) NARES. IV ON R EXTERNAL JUGULAR. IV ASYMPTOMATIC, PATENT AND INTACT. FALL RISK PROTOCOL IN PLACE. BED IN LOW POSITION, CALL LIGHT WITHIN REACH. WILL CONTINUE TO MONITOR.
[2018-10-31 08:00] VITALS: BP 131/72
[2018-10-31] MEDS: lamoTRIgine 25 MG TAB PO SCH ×2 (08:38→20:34)
[2018-10-31] MEDS: FERROUS SULFATE 325 MG TABEC PO SCH ×2 (08:38→20:34)
[2018-10-31] MEDS: CALCIUM ACETATE 667 MG TAB PO SCH ×2 (08:38→17:07)
[2018-10-31] MEDS: ASPIRIN 81 MG TAB.CHEW PO SCH (08:38)
[2018-10-31] MEDS: MONTELUKAST SODIUM 10 MG TAB PO SCH (08:38)
[2018-10-31] MEDS: PANTOPRAZOLE 40 MG INJ VIAL IVP SCH (08:39)
[2018-10-31] MEDS: DOCUSATE SODIUM 100 MG GELCAP PO SCH ×2 (08:39→20:34)
[2018-10-31] MEDS: MUPIROCIN CA NASAL 2% 1GM TUBE NS SCH (08:40)
[2018-10-31] MEDS: METHIMAZOLE 5 MG TAB PO SCH ×2 (09:00→20:34)
[2018-10-31] MEDS: CHLORHEXADINE GLUC 2% CLOTH TP SCH (09:00)
--- NOTE | 2018-10-31 09:00 | NUR ---
ADMINISTERED SCHEDULED MEDS. PATIENT TOLERATED WELL. WILL CONTINUE TO MONITOR.
[2018-10-31] MEDS ORDERED: FLUCONAZOLE 100 MG TAB PO SCH (09:06)
[2018-10-31] MEDS ORDERED: SODIUM PHOSPHATE 15 MMOLE in NACL 0.9% 250 ML IV SCH (10:00)
--- NOTE | 2018-10-31 10:52 | NUR ---
CM NOTE I FAXED PATIENT'S MEDICAL INFO TO [facility], NO DISCHARGE ORDER AT THIS TIME.
--- NOTE | 2018-10-31 11:30 | NUR ---
R EXTERNAL JUGULAR IV LEAKING. WILL START ANOTHER IV.
--- NOTE | 2018-10-31 11:57 | NUR ---
PATIENT GIVEN BED BATH. ATTEMPTED IV STARTS. NO BLOOD RETURN. WILL ATTEMPT ANOTHER IV LATER. WILL CONTINUE TO MONITOR.
[2018-10-31 12:00] VITALS: BP 128/81
[2018-10-31] MEDS ORDERED: FLUC100T1 PO (13:20)
[2018-10-31] MEDS: INSULIN LISPRO SLIDING SCALE 100 UNITS/ML VIAL SUBQ PRN ×2 (13:40→20:41)
--- NOTE | 2018-10-31 13:44 | NUR ---
Spoke with Dr. Leahy pt did not get a G tube, family doesn't want it.
--- NOTE | 2018-10-31 14:20 | NUR ---
Spoke with Pinky from [facility] and informed her that pt has discharge order to go back to [facility] today. Pinky asked if pt got a G tube here in the hospital. Informed her no G tube was placed due to both sons refusal.
--- NOTE | 2018-10-31 14:23 | NUR ---
Pinky stated" she will call the sons and ask them to reconsider the G tube for their mother.
--- NOTE | 2018-10-31 14:25 | NUR ---
Spoke with Tg from [facility] and she stated" the sons are planning to reconsider the G tube for their mother and they will call Dr. Leahy later this afternoon for their decision. Informed Dr. Leahy that the sons are reconsidering the placement of G tube for their mother.
--- NOTE | 2018-10-31 15:00 | NUR ---
Informed Preethi SALCEDO that no transportation has been set up since the sons are reconsidering placement for G tube for their mother. The sons will call Dr. Leahy sometime this afternoon.
[2018-10-31 16:00] VITALS: BP 127/80
--- NOTE | 2018-10-31 16:00 | NUR ---
ATTEMPTED TO START ANOTHER IV. STILL NO BLOOD RETURN. NOTIFIED CHARGE NURSE.
--- NOTE | 2018-10-31 16:50 | NUR ---
NEW IV ON R AC 24 G INFUSING NS AT 80. WILL CONTINUE TO MONITOR.
--- NOTE | 2018-10-31 17:12 | NUR ---
ADMINISTERED SCHEDULED MEDS. PATIENT TOLERATED WELL. WILL CONTINUE TO MONITOR.
--- NOTE | 2018-10-31 19:10 | NUR ---
GAVE REPORT TO ASSOCIATE OF SCIENCE IN NURSING NURSE ANGEL ALMAGUER. PATIENT ENDORSED IN STABLE CONDITION.
--- NOTE | 2018-10-31 19:11 | NUR ---
RECEIVED REPORT FROM TRIPP YANEZ FOR CONTINUITY OF CARE. PT A/OX1 ON ROOM AIR. PT IS ABLE TO MAKE NEEDS KNOWN, ABLE TO FOLLOW COMMANDS. PT AMBULATES WITH STEADY GAIT AND SKIN IS INTACT. PT HAS A 20G IV TO RIGHT EJ AND A 24G IV TO RIGHT AC, BOTH ASYMPTOMATIC AND INTACT. VITAL SIGNS WITHIN NORMAL LIMITS. PT STABLE, DENIES HAVING ANY PAIN, NO SIGNS OF DISTRESS NOTED AT THIS TIME. PT POSITIONED FOR COMFORT. BED IN LOWEST POSITION, BED ALARM ON. WILL CONTINUE TO MONITOR. Addendum: 11/01/18 at 0355 by Randa Ace RN DISREGARD.
--- NOTE | 2018-10-31 19:12 | NUR ---
RECEIVED REPORT FROM TRIPP YANEZ FOR CONTINUITY OF CARE. PT A/OX1 ON ROOM AIR. PT IS ABLE TO MAKE NEEDS KNOWN, ABLE TO FOLLOW COMMANDS. PT IS ON BEDREST WITH SEVERE WEAKNESS AND SKIN IS INTACT. PT HAS A 20G IV TO RIGHT EJ AND A 24G IV TO RIGHT AC, BOTH ASYMPTOMATIC AND INTACT. VITAL SIGNS WITHIN NORMAL LIMITS. PT STABLE, DENIES HAVING ANY PAIN, NO SIGNS OF DISTRESS NOTED AT THIS TIME. PT POSITIONED FOR COMFORT. BED IN LOWEST POSITION, BED ALARM ON. WILL CONTINUE TO MONITOR.
[2018-10-31] MEDS: DONEPEZIL 10 MG TAB PO SCH (20:34)
--- NOTE | 2018-10-31 20:41 | NUR ---
ADMINISTERED SCHEDULED MEDICATIONS, PT TOLERATED WELL.
[2018-11-01] VITALS: BP 139/89
--- NOTE | 2018-11-01 | NUR ---
VITAL SIGNS WITHIN NORMAL LIMITS. PT STABLE, DENIES HAVING ANY PAIN, NO SIGNS OF DISTRESS NOTED AT THIS TIME. PT POSITIONED FOR COMFORT. BED IN LOWEST POSITION, BED ALARM ON. WILL CONTINUE TO MONITOR.
--- NOTE | 2018-11-01 02:13 | NUR ---
PT RESTING, NO SIGNS OF DISTRESS NOTED AT THIS TIME. PT POSITIONED FOR COMFORT. BED IN LOWEST POSITION, BED ALARM ON. WILL CONTINUE TO MONITOR.
--- NOTE | 2018-11-01 04:33 | NUR ---
PT STILL RESTING, DENIES PAIN. NO SIGNS OF DISTRESS NOTED AT THIS TIME. PT POSITIONED FOR COMFORT. BED IN LOWEST POSITION, BED ALARM ON. WILL CONTINUE TO MONITOR.
[2018-11-01] MEDS: PIPER/TAZO 2.25GM/D5W PREMIX 50 ML IV SCH ×3 (05:52→21:27)
[2018-11-01] MEDS: BLOOD GLUCOSE MONITORING 1 DEV DEV FS SCH ×4 (06:40→21:49)
[2018-11-01] MEDS: INSULIN LISPRO SLIDING SCALE 100 UNITS/ML VIAL SUBQ PRN ×2 (06:40→13:02)
--- NOTE | 2018-11-01 06:46 | NUR ---
PT C/O ABDOMINAL PAIN. ADMINISTERED NORCO ORDERED. PT TOLERATED WELL.
--- NOTE | 2018-11-01 07:05 | NUR ---
RECEIVED REPORT FROM INVENTORY CONTROL/SHIPPING RECEIVING RN FOR CONTINUITY OF CARE. PT AAOX1. NO S/S OF DISTRESS ON ROOM AIR. PT ABLE TO FOLLOW SIMPLE COMMANDS. SKIN IS INTACT. DENIES PAIN. IV TO RIGHT AC 24G, SUSPECTING INFILTRATION, DC'D, TIP INTACT, PRESSURE APPLIED. BED IN LOWEST POSITION, BED ALARM ON. FALL AND SEIZURE PRECAUTIONS IN PLACE. WILL CONTINUE TO MONITOR.
--- NOTE | 2018-11-01 07:37 | NUR ---
ENDORSED PT TO DAY SHIFT RN JUSTINO FOR CONTINUITY OF CARE. PT IN STABLE CONDITION.
[2018-11-01 08:00] VITALS: BP 126/68
--- NOTE | 2018-11-01 08:05 | NUR ---
NEW IV STARTED ON RIGHT FA 22G. PT TOLERATED WELL.
[2018-11-01] MEDS: NACL 0.45% 1,000 ML IV SCH (09:11)
[2018-11-01] MEDS: METHIMAZOLE 5 MG TAB PO SCH ×2 (10:09→21:27)
[2018-11-01] MEDS: FERROUS SULFATE 325 MG TABEC PO SCH ×2 (10:09→21:26)
[2018-11-01] MEDS: PANTOPRAZOLE 40 MG INJ VIAL IVP SCH (10:10)
[2018-11-01] MEDS: FLUCONAZOLE 100 MG TAB PO SCH (10:10)
[2018-11-01] MEDS: CALCIUM ACETATE 667 MG TAB PO SCH ×2 (10:10→12:02)
[2018-11-01] MEDS: ASPIRIN 81 MG TAB.CHEW PO SCH (10:10)
[2018-11-01] MEDS: DOCUSATE SODIUM 100 MG GELCAP PO SCH ×2 (10:10→21:26)
[2018-11-01] MEDS: MONTELUKAST SODIUM 10 MG TAB PO SCH (10:11)
[2018-11-01] MEDS: lamoTRIgine 25 MG TAB PO SCH ×2 (10:11→21:26)
[2018-11-01] MEDS: MUPIROCIN CA NASAL 2% 1GM TUBE NS SCH (10:12)
[2018-11-01 10:34] LABS: BASOPHILS % (AUTO) 0.4 % (0.0-2.0); EOSINOPHILS # (AUTO) 0.4 K/uL (0-0.4); EOSINOPHILS % (AUTO) 3.3 % (0.0-4.0); HEMATOCRIT 34.7 % (36-48); HEMOGLOBIN 10.7 g/dL (12.0-16.0); LYMPHOCYTES # (AUTO) 1.5 K/uL (2.5-16.5); LYMPHOCYTES % (AUTO) 14.1 % (20.5-51.1); MEAN CORPUSCULAR HEMOGLOBIN 28 pg (27-31); MEAN CORPUSCULAR HGB CONC 31 g/dL (33-37); MEAN CORPUSCULAR VOLUME 89.6 fL (80-94); NEUTROPHILS # (AUTO) 7.9 K/uL (1.8-7.7); NEUTROPHILS % (AUTO) 73.2 % (42.2-75.2); PLATELET COUNT (AUTO) 329 K/uL (140-450); RED BLOOD CELL COUNT(AUTO) 3.87 MIL/uL (4.20-5.40); RED CELL DISTRIBUTION WIDTH 14.5 % (11.6-13.7); WHITE BLOOD COUNT (AUTO) 10.8 K/uL (4.8-10.8)
[2018-11-01] MEDS: CHLORHEXADINE GLUC 2% CLOTH TP SCH (10:36)
--- NOTE | 2018-11-01 10:45 | NUR ---
HEPARIN HELD FOR POSSIBLE NEW G TUBE PLACEMENT TODAY.
[2018-11-01 10:50] LABS: CARBON DIOXIDE 25.3 mmol/L (21-32); CREATININE 0.9 mg/dL (0.6-1.3); POTASSIUM 3.3 mmol/L (3.5-5.1)
[2018-11-01 10:53] LABS: MAGNESIUM 1.7 mg/dL (1.8-2.4); PHOSPHORUS 2.3 mg/dL (2.5-4.9)
--- NOTE | 2018-11-01 12:02 | NUR ---
CALCIUM 9.0, PHOS 2.3, PHOSLO HELD
--- NOTE | 2018-11-01 12:43 | NUR ---
11/01/18 RD FOLLOW-UP COMPLETED PLEASE REFER TO NUTRITION ASSESSMENT UNDER CARE ACTIVITY FOR ESTIMATED NUTRITIONAL NEEDS. 1. CONTINUE NPO UNTIL SUCCESSFUL PLACEMENT OF G-TUBE 2. WHEN/IF G-TUBE SUCCESSFULLY PLACED, RECOMMEND VITAL AF 1.2 @ 60 ML/HR X 24 HRS. - THIS WILL PROVIDE 1728 KCALS AND 108 G PROTEIN. THIS WILL MEET 97% OF ESTIMATED ENERGY NEEDS AND 100% OF ESTIMATED PROTEIN NEEDS. 3. RECOMMEND FLUSH [address] TO FOLLOW-UP 2-3 DAYS, HIGH RISK ALEE SCHAEFFER RD
[2018-11-01] MEDS ORDERED: fentaNYL 0.05 MG/ML VIAL ONE (13:12)
[2018-11-01] MEDS ORDERED: MIDAZOLAM 2 MG/2 ML VIAL ONE (13:13)
[2018-11-01] MEDS ORDERED: MAG SULF 2000 MG/WATER PREMIX 50 ML IV SCH (14:00)
[2018-11-01] MEDS ORDERED: AMMONIA AROMATIC 1 INHL INH ONE (14:09)
[2018-11-01] MEDS ORDERED: MIDAZOLAM 2 MG/2 ML VIAL IVP ONE ×2 (14:30→14:45)
[2018-11-01] MEDS ORDERED: fentaNYL 0.05 MG/ML VIAL IVP ONE ×2 (14:30→14:45)
--- NOTE | 2018-11-01 14:33 | NUR ---
SPOKE WITH GERMAIN AT [facility] REGARDING PATIENT HAVING PEG PLACEMENT TODAY AND HAVE ORDER TO TRANSFER BACK TODAY. PER GERMAIN SHE DOES NOT HAVE A BED AVAILABLE TODAY AND THAT PATIENT NEEDS TO HAVE NEW ENTERAL FEEDING STARTED AT THE HOSPITAL AND MONITORED FOR FEEDING TOLERANCE. DR ORLANDO INFORMED.
[2018-11-01] MEDS ORDERED: fentaNYL 0.05 MG/ML VIAL IVP SCH (14:45)
--- NOTE | 2018-11-01 15:00 | NUR ---
PT RETURNED TO FLOOR, NEW G TUBE PLACED. G TUBE DRESSING IS CLEAN AND DRY.
[2018-11-01 16:00] VITALS: BP 128/71
[2018-11-01] MEDS ORDERED: POTASSIUM CHLORIDE 40 MEQ, LIDOCAINE MPF 1% - 5 mL VIAL 25 MG in NACL 0.9% 250 ML IV SCH (16:00)
--- NOTE | 2018-11-01 18:00 | NUR ---
G TUBE RESIDUAL 0ML. STARTED FEEDING VITAL AF 1.2 AT 10ML/HR, H2O FLUSH 155ML Q6H. WILL CHECK IF PT TOLERATING OK AND INCREASE RATE.
--- NOTE | 2018-11-01 19:30 | NUR ---
ENDORSED PT TO COMPOUND FINISHER RN. PT IN STABLE CONDITION.
--- NOTE | 2018-11-01 19:38 | NUR ---
RECEIVED REPORT FROM DAY SHIFT NURSE. PT SLEEPING. NO S/S OF PAIN OR SOB. ON ROOM AIR. IV TO LEFT FA #20G, PATENT AND INTACT. SKIN INTACT. SAFETY PRECAUTION IN PLACE. CALL LIGHT WITHIN REACH.
--- NOTE | 2018-11-01 21:00 | NUR ---
CLARIFIED FEEDING ORDER TO DR. LEON. START FEEDING AT 10 ML/HR, INCREASE BY 10ML Q4HRS TO GOAL 60 ML. FEEDING STARTED AT 1800 HRS BY DAY SHIFT NURSE.
[2018-11-01] MEDS: DONEPEZIL 10 MG TAB PO SCH (21:27)
--- NOTE | 2018-11-01 22:00 | NUR ---
CHECKED GT RESIDUAL 5ML. INCREASED FEEDING TO 20 ML/HR. ASPIRATION PRECAUTION IN PLACE.
[2018-11-02] VITALS: BP 142/85
--- NOTE | 2018-11-02 00:30 | NUR ---
PT SLEEPING BUT EASILY AROUSABLE. NO S/S OF RESP DISTRESS NOTED. PT TOLERATING FEEDING WELL. SAFETY AND ASPIRATION PRECAUTION IN PLACE.
--- NOTE | 2018-11-02 02:00 | NUR ---
CHECKED G-TUBE RESIDUAL 0ML. INCREASED FEEDING TO 30 ML/HR. ASPIRATION PRECAUTION IN PLACE.
[2018-11-02] MEDS: NACL 0.45% 1,000 ML IV SCH ×2 (02:20→08:35)
--- NOTE | 2018-11-02 04:30 | NUR ---
PT SLEEPING. RESP EVEN AND UNLABORED. NO S/S OF PAIN OR DISCOMFORT. PT TOLERATING FEEDING WELL.
[2018-11-02] MEDS: PIPER/TAZO 2.25GM/D5W PREMIX 50 ML IV SCH (05:13)
--- NOTE | 2018-11-02 06:00 | NUR ---
CHECKED GT RESIDUAL 0 ML. INCREASED FEEDING RATE TO 40 ML/HR. ASPIRATION PRECAUTION IN PLACE.
[2018-11-02] MEDS: INSULIN LISPRO SLIDING SCALE 100 UNITS/ML VIAL SUBQ PRN (06:06)
--- NOTE | 2018-11-02 06:30 | NUR ---
CHECKED BLOOD SUGAR 160. 2 UNITS OF HUMALOG SUBQ GIVEN.
[2018-11-02] MEDS: BLOOD GLUCOSE MONITORING 1 DEV DEV FS SCH ×2 (06:51→11:30)
--- NOTE | 2018-11-02 07:21 | NUR ---
ENDORSED PT TO DAY SHIFT NURSE. PT IN STABLE CONDITION.
--- NOTE | 2018-11-02 07:22 | NUR ---
RECEIVED REPORT FROM SIGNAL CONSTRUCTOR NURSE FOR CONTINUITY OF CARE. PT IN STABLE CONDITION. RESPIRATIONS EVEN AND UNLABORED. IV INTACT AND PATENT. SAFETY MEASURES IN PLACE. CALL LIGHT AT BEDSIDE. BED IN LOW POSITION. WILL CONTINUE TO MONITOR.
[2018-11-02 08:00] VITALS: BP 124/80
[2018-11-02 08:02] LABS: ANION GAP 12.8 (8-16); CARBON DIOXIDE 25.6 mmol/L (21-32); POTASSIUM 4.4 mmol/L (3.5-5.1)
[2018-11-02 08:24] LABS: BASOPHILS # (AUTO) 0.1 K/uL (0.00-0.22); MEAN CORPUSCULAR HGB CONC 30 g/dL (33-37); WHITE BLOOD COUNT (AUTO) 12.3 K/uL (4.8-10.8)
[2018-11-02 08:49] LABS: BASOPHILS % (AUTO) 0.5 % (0.0-2.0); EOSINOPHILS # (AUTO) 0.5 K/uL (0-0.4); EOSINOPHILS % (AUTO) 3.8 % (0.0-4.0); HEMOGLOBIN 9.3 g/dL (12.0-16.0); LYMPHOCYTES # (AUTO) 1.8 K/uL (2.5-16.5); LYMPHOCYTES % (AUTO) 14.9 % (20.5-51.1); MEAN CORPUSCULAR HEMOGLOBIN 27 pg (27-31); MEAN CORPUSCULAR VOLUME 89.8 fL (80-94); MONOCYTES # (AUTO) 1.1 K/uL (0.8-1.0); MONOCYTES % (AUTO) 8.6 % (1.7-9.3); NEUTROPHILS # (AUTO) 8.9 K/uL (1.8-7.7); NEUTROPHILS % (AUTO) 72.2 % (42.2-75.2); PLATELET COUNT (AUTO) 348 K/uL (140-450); RED BLOOD CELL COUNT(AUTO) 3.45 MIL/uL (4.20-5.40); RED CELL DISTRIBUTION WIDTH 14.7 % (11.6-13.7)
[2018-11-02 09:24] LABS: MAGNESIUM 2.3 mg/dL (1.8-2.4)
--- NOTE | 2018-11-02 09:30 | NUR ---
PT LYING IN BED IN STABLE CONDITION. RESPIRATIONS EVEN AND UNLABORED. WILL CONTINUE TO MONITOR. BED IN LOW POSITION. CALL LIGHT AT BEDSIDE. BED ALARM ON.
--- NOTE | 2018-11-02 11:30 | NUR ---
REPOSITIONED PT AT THIS TIME. PT IN STABLE CONDITION. WILL CONTINUE TO MONITOR.
[2018-11-02] MEDS: lamoTRIgine 25 MG TAB PO SCH (13:37)
[2018-11-02] MEDS: FLUCONAZOLE 100 MG TAB PO SCH (13:37)
[2018-11-02] MEDS: PANTOPRAZOLE 40 MG INJ VIAL IVP SCH (13:37)
[2018-11-02] MEDS: DOCUSATE SODIUM 100 MG GELCAP PO SCH (13:38)
[2018-11-02] MEDS: ASPIRIN 81 MG TAB.CHEW PO SCH (13:38)
[2018-11-02] MEDS: METHIMAZOLE 5 MG TAB PO SCH (13:38)
[2018-11-02] MEDS: MONTELUKAST SODIUM 10 MG TAB PO SCH (13:38)
[2018-11-02] MEDS: FERROUS SULFATE 325 MG TABEC PO SCH (13:38)
[2018-11-02] MEDS: MUPIROCIN CA NASAL 2% 1GM TUBE NS SCH (14:05)
[2018-11-02] MEDS: CHLORHEXADINE GLUC 2% CLOTH TP SCH (14:05)
--- NOTE | 2018-11-02 14:50 | NUR ---
GAVE REPORT TO SOCORRO Olmedo FROM [facility]. SOCORRO VERBALIZED UNDERSTANDING OF REPORT. ALL QUESTIONS ANSWERED AT THIS TIME.
--- NOTE | 2018-11-02 15:15 | NUR ---
PT LYING IN BED IN STABLE CONDITION. RESPIRATIONS EVEN AND UNLABORED. WILL CONTINUE TO MONITOR. BED IN LOW POSITION. CALL LIGHT AT BEDSIDE. BED ALARM ON.
[2018-11-02 16:00] VITALS: BP 132/85
--- NOTE | 2018-11-02 16:35 | NUR ---
GAVE DISCHARGE INSTRUCTIONS PT DROWSY AT THIS TIME. PT VERBALIZED UNDERSTANDING OF INSTRUCTIONS. ID BAND REMOVED. FEEDING TUBE DISCONNECTED. IV REMOVED, LUMEN INTACT. GAVE REPORT TO TRANSPORT TEAM. ALL QUESTIONS ANSWERED AT THIS TIME. PT PLACED ON GURNEY. PT IN STABLE CONDITION.
== END 2018-11-02 16:35 | DRG 720 ==
LOC: MED 07:40 → MTU 11:32
PROVIDERS: ADMIT Family Medicine; ATTEND Family Medicine
PROC: 0DJ08ZZ Inspection of Upper Intestinal Tract, Via Natural or Artificial Opening Endoscopic (ICD-10-PCS; 2018-11-01)
PROC: 0DH63UZ Insertion of Feeding Device into Stomach, Percutaneous Approach (ICD-10-PCS; principal; 2018-11-01 16:40)
DX: A41.9 Sepsis, unspecified organism (principal); N17.0 Acute kidney failure with tubular necrosis; G82.50 Quadriplegia, unspecified; E44.0 Moderate protein-calorie malnutrition; R13.10 Dysphagia, unspecified; E87.0 Hyperosmolality and hypernatremia; N39.0 Urinary tract infection, site not specified; R65.20 Severe sepsis without septic shock; E87.6 Hypokalemia; E11.65 Type 2 diabetes mellitus with hyperglycemia; G40.909 Epilepsy, unspecified, not intractable, without status epilepticus; G82.20 Paraplegia, unspecified; E83.41 Hypermagnesemia; J44.9 Chronic obstructive pulmonary disease, unspecified; K21.9 Gastro-esophageal reflux disease without esophagitis; E87.8 Other disorders of electrolyte and fluid balance, not elsewhere classified; E83.52 Hypercalcemia; E86.0 Dehydration; N18.9 Chronic kidney disease, unspecified; I13.0 Hypertensive heart and chronic kidney disease with heart failure and stage 1 through stage 4 chronic kidney disease, or unspecified chronic kidney disease; E11.22 Type 2 diabetes mellitus with diabetic chronic kidney disease; G30.9 Alzheimer's disease, unspecified; F02.80 Dementia in other diseases classified elsewhere, unspecified severity, without behavioral disturbance, psychotic disturbance, mood disturbance, and anxiety; E05.90 Thyrotoxicosis, unspecified without thyrotoxic crisis or storm; E11.51 Type 2 diabetes mellitus with diabetic peripheral angiopathy without gangrene; M81.0 Age-related osteoporosis without current pathological fracture; I69.369 Other paralytic syndrome following cerebral infarction affecting unspecified side; Z68.1 Body mass index [BMI] 19.9 or less, adult; Z79.82 Long term (current) use of aspirin; Z79.899 Other long term (current) drug therapy; Z83.3 Family history of diabetes mellitus; Z82.49 Family history of ischemic heart disease and other diseases of the circulatory system; Z79.84 Long term (current) use of oral hypoglycemic drugs
CPT/HCPCS: 36415; 36600; 70450; 71045; 80048; 80053; 81001; 82009; 82150; 82803; 82948; 83605; 83690; 83735; 83880; 84100; 84439; 84443; 84484; 85025; 85610; 87040; 87081; 87086; 87804; 93005; 96361; 96365; 96367; 99285; C1758; C9113; J1580; J1644; J1815; J2001; J2250; J2543; J3010; J3475; J3480; J7030; J7060; Q0092

== ENCOUNTER 2018-11-12 01:45 | Inpatient (IN) | payer MEDICAID, MEDICARE ==
[~2018-11-12] VITALS: Ht 165.1 cm; Wt 53.1 kg
[~2018-11-12 01:45] MED LIST changes: +FLUC100T1 PO
[2018-11-12] MEDS ORDERED: NACL 0.9% 1,000 ML IV SCH ×2 (01:49→04:00)
[2018-11-12 01:50] VITALS: BP 92/46
[2018-11-12] MEDS ORDERED: cefTRIAXone 1,000 MG in DEXT 5% MINI-BAG PLUS 50 ML IV ONE (01:50)
--- NOTE | 2018-11-12 01:50 | NUR ---
PT XENIA ALS. TAKEN TO BED 11
--- NOTE | 2018-11-12 01:50 | NUR ---
PATIENT PRESENTS TO ED WITH C/O GENERALIZED WEAKNESS AND UTI. ROMERO PLACED UPON ARRIVAL. SKIN INTACT. PT ON 3 LITERS O2, SATS AT 98%. PT HAS G-TUBE. PT FEBRILE 101.8 UPON ARRIVAL, COOLING MEASURES STARTED. SEIZURE PRECAUTIONS IN PLACE. BREATH SOUNDS DIMIINSHED. NO PAIN NOTED AT THIS TIME. PATIENT POSITIONED FOR COMFORT; HOB ELEVATED; BEDRAILS UP X2; BED DOWN. ER MD MADE AWARE OF PT STATUS.
[2018-11-12 02:23] LABS: HEMATOCRIT 37.5 % (36-48); HEMOGLOBIN 11.7 g/dL (12.0-16.0); MEAN CORPUSCULAR HEMOGLOBIN 27 pg (27-31); MEAN CORPUSCULAR HGB CONC 31 g/dL (33-37); MEAN CORPUSCULAR VOLUME 87.2 fL (80-94); PLATELET COUNT (AUTO) 442 K/uL (140-450); RED CELL DISTRIBUTION WIDTH 15.2 % (11.6-13.7)
[2018-11-12 02:33] LABS: ANION GAP 15.7 (8-16); CARBON DIOXIDE 26.3 mmol/L (21-32); CREATININE 1.6 mg/dL (0.6-1.3)
[2018-11-12 02:39] LABS: ALBUMIN 2.8 g/dL (3.4-5.0); TOTAL BILIRUBIN 0.3 mg/dL (0.0-1.0)
[2018-11-12 02:43] LABS: APPEARANCE,URINE CLOUDY (CLEAR); BILIRUBIN,URINE NEGATIVE (NEGATIVE); BLOOD, URINE 1+ (NEGATIVE); COLOR,URINE YELLOW (YELLOW); LEUKOCYTE ESTERASE ,URINE 3+ (NEGATIVE); NITRITE, URINE NEGATIVE (NEGATIVE); PH,URINE 5.5 (5.0-9.0); UGLUCOSE 1+ (NEGATIVE)
[2018-11-12 02:52] LABS: WHITE BLOOD COUNT (AUTO) 15.2 K/uL (4.8-10.8)
[2018-11-12 02:56] LABS: EOSINOPHILS % (MANUAL) 3 % (0-4); LYMPHOCYTES % (MANUAL) 26 % (20-46); MONOCYTES % (MANUAL) 4 % (5-12)
--- NOTE | 2018-11-12 02:56 | NUR ---
EKG PERFORMED AT BEDSIDE. PT COVERED IN GOWN DURING PROCEDURE
[2018-11-12 03:07] LABS: RBC,URINE TOO NUMEROUS TO COUN /HPF (0-5); WBC,URINE TOO MANY TO COUNT /HPF (0-5); YEAST,URINE Many /HPF (None Seen)
--- NOTE | 2018-11-12 03:24 | NUR ---
Dr. Babcock evaluating patient at bedside.
[2018-11-12] MEDS ORDERED: NACL 0.9% 1,000 ML IV ONE (03:25)
[2018-11-12] MEDS ORDERED: HYDROcodone/APAP 7.5/325 MG 1 TAB PO PRN (03:35)
[2018-11-12] MEDS ORDERED: ONDANSETRON 4 MG/2 ML VIAL IM/IVP PRN (03:35)
[2018-11-12] MEDS ORDERED: DOCUSATE SODIUM 100 MG GELCAP PO PRN (03:35)
[2018-11-12] MEDS ORDERED: ACETAMINOPHEN 325 MG TAB PO PRN (03:35)
[2018-11-12] MEDS ORDERED: cefTRIAXone 1,000 MG VIAL ONE ×2 (03:46→05:47)
[2018-11-12 03:56] LABS: PROTHROMBIN TIME 10.9 secs (10.8-13.4)
[2018-11-12] MEDS ORDERED: DEXT 5% / NACL 0.45% 1,000 ML IV SCH (04:05)
[2018-11-12 04:15] LABS: MAGNESIUM 2.2 mg/dL (1.8-2.4); THYROID STIMULATING HORMONE 3.98 uIU/mL (0.34-3.74)
[2018-11-12] MEDS ORDERED: ALBUTEROL SULFATE/IPRATROPIU 3 ML SOL IH PRN (04:15)
--- NOTE | 2018-11-12 04:20 | NUR ---
RECEIVED REPORT FROM ER NURSE. PATIENT AWAKE, REFUSED TO RESPOND TO QUESTIONS. RESPIRATION EVEN UNLABORED ON 3L OF O2 VIA NC. NO DISTRESS NOTED. SKIN IS WARM, DRY, AND INTACT. MRSA SCREEN DONE. INITIAL ASSESSMENT DONE. IV PATENT AND INTACT. G-TUBE INTACT AND DRESSING DRY AND CLEAN. ROMERO CATHETER DRAINING CLOUDY YELLOW URINE. VITALS BP: 120/68 RR 18 P 100 TEMP 98.3 SPO2 99% 3L NC. ALL SAFETY MEASURE IN PLACE. ORIENT PATIENT TO ROOM, STAFF, AND CALL LIGHT. PLAN OF CARE WAS DISCUSSED. BED IS AT LOW POSITION. CALL LIGHT WITHIN REACH.
--- NOTE | 2018-11-12 04:35 | NUR ---
Patient will be admitted to care of DR. ORLANDO. Admited to MS. Will go to room 113. Belongings list completed. Report to TRIPP BLOOM.
[2018-11-12] MEDS ORDERED: CLINDAMYCIN 600 MG in DEXTROSE 5% 50 ML IV SCH (05:00)
--- NOTE | 2018-11-12 05:00 | NUR ---
MEDS WERE GIVEN PER ORDER. NO ASE NOTED. WILL CONTINUE TO MONITOR.
[2018-11-12] MEDS ORDERED: CLINDAMYCIN 600 MG/4 ML VIAL ONE (05:02)
[2018-11-12] MEDS: FLUCONAZOLE 200 MG/NS PREMIX 100 ML IV SCH (06:17)
[2018-11-12 07:04] VITALS: BP 120/68
--- NOTE | 2018-11-12 07:30 | NUR ---
ENDORSED PATIENT TO DAY SHIFT NURSE FOR CONTINUITY OF CARE. PATIENT CONDITION STABLE.
--- NOTE | 2018-11-12 07:31 | NUR ---
RECEIVED BEDSIDE REPORT FROM MERLE ALMAGUER. PATIENT APHASIC AND SLEEPING. ON CONTACT PRECAUTIONS FOR HX MRSA. SKIN INTACT. ON 3 L O2 VIA NC, NO DISTRESS NOTED. PATIENT UNABLE TO AMBULATE AND INCONTINENT. IV ON L FA 20 G INFUSING D5 1/2 NS AT 45. IV ASYMPTOMATIC, PATENT AND INTACT. PATIENT ON MED SURGE. BED IN LOW POSITION, CALL LIGHT WITHIN REACH, SIDE RAILS UP X2. WILL CONTINUE TO MONITOR. Addendum: 11/12/18 at 1300 by Hemalatha Foy RN PATIENT W G TUBE. HEARD SWOOSH AND 20 CC OF GASTRIC RESIDUAL.
[2018-11-12] MEDS: ALBUTEROL SULFATE/IPRATROPIU 3 ML SOL IH SCH ×3 (07:36→19:16)
[2018-11-12 07:41] LABS: CHOL/HDL RATIO 3.1 (1-4.5)
[2018-11-12 08:00] VITALS: BP 111/66
[2018-11-12] MEDS ORDERED: metFORMIN 500 MG TAB PO SCH (08:00)
--- NOTE | 2018-11-12 08:05 | NUR ---
PATIENT HAS BEEN SCREENED AND CATEGORIZED HIGH NUTRITION RISK. PATIENT WILL BE SEEN WITHIN 1-2 DAYS OF ADMISSION. 11/12/18-11/13/[address]
[2018-11-12] MEDS ORDERED: NACL 0.45% 1,000 ML IV SCH (08:40)
[2018-11-12] MEDS ORDERED: METHIMAZOLE 5 MG TAB PO SCH ×2 (09:00)
[2018-11-12] MEDS ORDERED: ASPIRIN 81 MG TAB.CHEW PO SCH (09:00)
[2018-11-12] MEDS ORDERED: lamoTRIgine 25 MG TAB PO SCH (09:00)
[2018-11-12] MEDS ORDERED: FERROUS SULFATE 325 MG TABEC PO SCH (09:00)
[2018-11-12] MEDS ORDERED: DOCUSATE SODIUM 100 MG GELCAP PO SCH (09:00)
[2018-11-12] MEDS ORDERED: LACTOBACILLUS RHAMNOSUS GG 1 EACH CAP PO SCH (09:00)
[2018-11-12] MEDS ORDERED: LORazepam 2 MG/ML VIAL IM/IVP PRN (09:15)
[2018-11-12] MEDS ORDERED: ACETAMINOPHEN 650 MG/20.3 ML UDC GT PRN (09:29)
[2018-11-12] MEDS ORDERED: metFORMIN 500 MG TAB GT SCH (09:31)
[2018-11-12] MEDS ORDERED: DEXTROSE 50% 50 ML SYR IVP PRN (09:50)
[2018-11-12] MEDS: NACL 0.45% 1,000 ML IV SCH ×2 (10:03→15:30)
--- NOTE | 2018-11-12 10:07 | NUR ---
CHANGED IVF BAG TO NS 0.45 AT 150/HR. PATIENT LAYING IN BED, NO DISTRESS NOTED. WILL CONTINUE TO MONITOR.
[2018-11-12] MEDS ORDERED: POLYETHYLENE GLYCOL 17 GM/PKT GT SCH (11:58)
[2018-11-12] MEDS ORDERED: BISACODYL 5 MG TABEC PO PRN (12:00)
[2018-11-12] MEDS: BLOOD GLUCOSE MONITORING 1 DEV DEV FS SCH ×3 (12:14→20:41)
[2018-11-12] MEDS: INSULIN LISPRO SLIDING SCALE 100 UNITS/ML VIAL SUBQ PRN (12:42)
--- NOTE | 2018-11-12 12:58 | NUR ---
PATIENT SLEEPING, ON ROOM AIR, NO DISTRESS NOTED. WILL CONTINUE TO MONITOR.
[2018-11-12] MEDS: CLINDAMYCIN PHOS 600MG/D5W PM 50 ML IV SCH ×2 (13:18→20:26)
[2018-11-12 13:25] LABS: ANION GAP 13.4 (8-16); CARBON DIOXIDE 27.6 mmol/L (21-32); CREATININE 1.1 mg/dL (0.6-1.3)
--- NOTE | 2018-11-12 14:53 | NUR ---
11/12/18 INITIAL ASSESSMENT COMPLETED PLEASE REFER TO NUTRITION ASSESSMENT UNDER CARE ACTIVITY FOR ESTIMATED NUTRITIONAL NEEDS. 1. CONTINUE GLUCERNA 1.2 AT 60 ML/HR TOLERATED -THIS WILL PROVIDE A VOLUME OF 1440 ML, 1728 KCAL ENERGY, 86 GRAMS PROTEIN, AND 1959 ML FREE FLUID. IT MEETS 87% (ADEQUATE) OF THE ENERGY NEED AND 87% (ADEQUATE) PROTEIN NEED. 2. CONTINUE FREE WATER FLUSH [address] TO FOLLOW-UP 2-3 DAYS, HIGH RISK DUE TO TUBE FEEDING ALEE SCHAEFFER RD
--- NOTE | 2018-11-12 15:26 | NUR ---
PATIENT TURNED TO R SIDE LYING POSITION. ON ROOM AIR, NO DISTRESS NOTED. WILL CONTINUE TO MONITOR.
[2018-11-12 16:00] VITALS: BP 108/62
--- NOTE | 2018-11-12 16:43 | NUR ---
Group Product Manager Note: Per Pinky from [facility] , patient is on a 7 day bed hold and is one of their rn long term care patients. Pinky stated patient's son Mateo Jenkins is her health care decision maker.
--- NOTE | 2018-11-12 16:57 | NUR ---
PATIENT IS SLEEPING. ON ROOM AIR, NO DISTRESS NOTED. WILL CONTINUE TO MONITOR.
[2018-11-12 18:21] LABS: ANION GAP 13.4 (8-16); CARBON DIOXIDE 23.2 mmol/L (21-32); POTASSIUM 3.6 mmol/L (3.5-5.1)
--- NOTE | 2018-11-12 19:20 | NUR ---
GAVE REPORT TO TRIPP BLOOM. PATIENT ENDORSED IN STABLE CONDITION.
--- NOTE | 2018-11-12 19:30 | NUR ---
RECEIVED BEDSIDE REPORT FROM DAY SHIFT NURSE FOR CONTINUITY OF CARE. PATIENT AWAKE, RESPIRATION EVEN UNLABORED ON ROOM AIR. SKIN IS WARM AND DRY. IV PATENT AND INTACT. G-TUBE NOTED. ROMERO CATHETER DRAINING YELLOW CLOUDY URINE. ALL SAFETY MEASURE IN PLACE. FALL RISK PROTOCOL IN PLACE. PLAN OF CARE WAS DISCUSSED. BED IS AT LOW POSITION. BED ALARM ON. CALL LIGHT WITHIN REACH.
--- NOTE | 2018-11-12 20:10 | NUR ---
INITIAL ASSESSMENT DONE. VITALS STABLE. PATIENT SATING 94% ROOM AIR. OBTAINED 1CC RESIDUAL FROM THE G-TUBE. CHECKED FOR PLACEMENT. CALL LIGHT WITHIN REACH. WILL CONTINUE TO MONITOR.
[2018-11-12] MEDS: DOCUSATE 100 MG/10 ML UDC GT SCH (20:24)
[2018-11-12] MEDS: METHIMAZOLE 5 MG TAB GT SCH (20:25)
[2018-11-12] MEDS: lamoTRIgine 25 MG TAB GT SCH (20:25)
[2018-11-12] MEDS: FERROUS SULFATE 300 MG/5 ML UDC GT SCH (20:25)
--- NOTE | 2018-11-12 20:30 | NUR ---
MEDS WERE GIVEN PER ORDER. NO ASE NOTED. WILL CONTINUE TO MONITOR.
--- NOTE | 2018-11-12 21:30 | NUR ---
STARTED G-TUBE FEEDING. PATIENT RECEIVING GLUCERNA 1.2 60ML/HR H2O 200 Q6H. WILL CONTINUE TO MONITOR.
--- NOTE | 2018-11-12 23:20 | NUR ---
PATIENT SLEEPING COMFORTABLY RESPIRATION EVEN UNLABORED ON ROOM AIR. NO DISTRESS NOTED. CALL LIGHT WITHIN REACH. WILL CONTINUE TO MONITOR.
--- NOTE | 2018-11-13 00:15 | NUR ---
VITALS WERE TAKEN. PATIENT CONDITION STABLE. CALL LIGHT WITHIN REACH. WILL CONTINUE TO MONITOR.
[2018-11-13] MEDS: NACL 0.45% 1,000 ML IV SCH ×4 (00:25→23:32)
--- NOTE | 2018-11-13 03:25 | NUR ---
CHECKED G-TUBE FEEDING. OBTAINED 55ML RESIDUAL. PATIENT TOLERATING IT WELL. WILL CONTINUE TO MONITOR.
[2018-11-13] MEDS: CLINDAMYCIN PHOS 600MG/D5W PM 50 ML IV SCH ×3 (04:59→22:13)
--- NOTE | 2018-11-13 05:08 | NUR ---
CHECKED PATIENT. CHANGED G-TUBE DRESSING. G-TUBE INTACT. WILL CONTINUE TO MONITOR.
[2018-11-13] MEDS: FLUCONAZOLE 200 MG/NS PREMIX 100 ML IV SCH (05:37)
[2018-11-13] MEDS: INSULIN LISPRO SLIDING SCALE 100 UNITS/ML VIAL SUBQ PRN ×2 (06:04→12:50)
[2018-11-13] MEDS: BLOOD GLUCOSE MONITORING 1 DEV DEV FS SCH ×4 (06:04→21:00)
--- NOTE | 2018-11-13 07:33 | NUR ---
ENDORSED PATIENT TO DAY SHIFT NURSE FOR CONTINUITY OF CARE. PATIENT STABLE AT THIS TIME.
--- NOTE | 2018-11-13 07:35 | NUR ---
RECEIVED PT FROM HEALTHCARE TECHNICIAN NURSE, PT IS AWAKE AND LYING ON THE BED WITH SIDE RAILS UP AND CALL LIGHT WITHIN REACH, SAFETY AND FALL PRECAUTION ENFORCED, PT IS APHASIC AND HAS AN IV LINE ON THE LEFT FA G.20 WITH 1/2 NS AT 150ML/HR, INFUSING, PT IS ON CONTINUOUS FEEDING OF GLUCERNA 1.2 VIA G-TUBE AT A RATE OF 60ML/HR WITH WATER FLUSHING OF 200ML/HR Q6H. PT HAS A ROMERO CATHETER IN PLACE WITH 100ML/URINE IN BAG. RESPIRATION EVEN AND NO SIGN OF DISTRESS NOTED, WILL MONITOR PT.
[2018-11-13 08:00] VITALS: BP 123/72
[2018-11-13] MEDS: ALBUTEROL SULFATE/IPRATROPIU 3 ML SOL IH SCH ×3 (08:06→19:56)
--- NOTE | 2018-11-13 08:20 | NUR ---
REPORTED TO DR. CAMPOS ABOUT THE PT'S LACTIC ACID RESULT OF 3.5.
--- NOTE | 2018-11-13 08:25 | NUR ---
PT IS AWAKE AND VITAL SIGNS TAKEN AND IS WITHIN NORMAL LIMIT. NO SIGN OF DISTRESS NOTED AND WILL MONITOR PT.
[2018-11-13] MEDS ORDERED: NACL 0.45% 1,000 ML IV SCH (08:40)
[2018-11-13 09:12] LABS: BASOPHILS # (AUTO) 0.1 K/uL (0.00-0.22); BASOPHILS % (AUTO) 1.4 % (0.0-2.0); EOSINOPHILS # (AUTO) 0.3 K/uL (0-0.4); EOSINOPHILS % (AUTO) 3.1 % (0.0-4.0); HEMATOCRIT 32.4 % (36-48); HEMOGLOBIN 9.7 g/dL (12.0-16.0); LYMPHOCYTES # (AUTO) 1.8 K/uL (2.5-16.5); LYMPHOCYTES % (AUTO) 19.1 % (20.5-51.1); MEAN CORPUSCULAR HEMOGLOBIN 27 pg (27-31); MEAN CORPUSCULAR HGB CONC 30 g/dL (33-37); MEAN CORPUSCULAR VOLUME 90.5 fL (80-94); MONOCYTES # (AUTO) 0.8 K/uL (0.8-1.0); MONOCYTES % (AUTO) 8.3 % (1.7-9.3); NEUTROPHILS # (AUTO) 6.5 K/uL (1.8-7.7); NEUTROPHILS % (AUTO) 68.1 % (42.2-75.2); PLATELET COUNT (AUTO) 329 K/uL (140-450); RED BLOOD CELL COUNT(AUTO) 3.58 MIL/uL (4.20-5.40); RED CELL DISTRIBUTION WIDTH 14.9 % (11.6-13.7); WHITE BLOOD COUNT (AUTO) 9.5 K/uL (4.8-10.8)
[2018-11-13 09:20] LABS: ANION GAP 13.8 (8-16); POTASSIUM 3.8 mmol/L (3.5-5.1)
--- NOTE | 2018-11-13 09:35 | NUR ---
PT PULLED OUT HER IV LINE AND G-TUBE FEEDING LEAKED OUT AND SCATTERED ALL OVER THE BED, PT WAS CLEANED AND BED LINENS WERE CHANGED AND PT WAS MADE COMFORTABLE. NO SIGN OF DISTRESS NOTED AND WILL MONITOR PT.
[2018-11-13] MEDS ORDERED: glipiZIDE 5 MG TAB GT SCH (09:59)
--- NOTE | 2018-11-13 10:35 | NUR ---
REPORTED TO DR. CAMPOS REGARDING THE CRITICAL LAB VALUE OF THE PT'S BLOOD CULTURE OF GRAM(+) COCCI IN MD CINTHIA ACKNOWLEDGED AND WILL SEE PT.
[2018-11-13] MEDS: FERROUS SULFATE 300 MG/5 ML UDC GT SCH ×2 (10:42→22:07)
[2018-11-13] MEDS: DOCUSATE 100 MG/10 ML UDC GT SCH ×2 (10:42→22:07)
[2018-11-13] MEDS: ASPIRIN 81 MG TAB.CHEW GT SCH (10:43)
[2018-11-13] MEDS: lamoTRIgine 25 MG TAB GT SCH ×2 (10:43→22:07)
[2018-11-13] MEDS: SENNA 8.6 MG TAB PO SCH (10:44)
[2018-11-13] MEDS: METHIMAZOLE 5 MG TAB GT SCH ×2 (10:44→22:08)
[2018-11-13] MEDS: LACTOBACILLUS RHAMNOSUS GG 1 EACH CAP GT SCH (10:44)
--- NOTE | 2018-11-13 10:45 | NUR ---
PT IS AWAKE AND AM MEDICATIONS WERE GIVEN VIA G-TUBE, NO RESIDUAL NOTED AND PT TOLERATED THE MEDICATION ADMINISTRATION.
[2018-11-13] MEDS ORDERED: glipiZIDE 5 MG TAB ONE (10:58)
[2018-11-13] MEDS ORDERED: glipiZIDE 5 MG TAB PO SCH (11:15)
--- NOTE | 2018-11-13 11:30 | NUR ---
Service Plumber Note: Todd Vance from [facility] , will refer patient to a urologist.
[2018-11-13 12:59] LABS: MAGNESIUM 1.8 mg/dL (1.8-2.4); PHOSPHORUS 3.8 mg/dL (2.5-4.9)
--- NOTE | 2018-11-13 13:03 | NUR ---
CALLED PT'S SON, MARKY MILES AND OBTAINED A TELEPHONE CONSENT FOR THE PT FOR A PICC LINE INSERTION, SON WAS INFORMED THAT SEVERAL IV LINE REINSERTION WAS MADE TO PT BUT WAS UNSUCCESSFUL AND SON AGREED TO HAVE THE PROCEDURE DONE TO PT. CONSENT WAS WITNESSED BY 2 RNS AND ATTACHED TO CHART.
--- NOTE | 2018-11-13 13:24 | NUR ---
PICC LINE NURSE CALLED AT [phone] NOTIFIED OF ORDER FOR PICC PLACEMENT.
--- NOTE | 2018-11-13 15:37 | NUR ---
SATURATION 90% (LIF/RIF) ON ROOM AIR POST HHN THERAPY PLACED ON SUPPLEMENTAL OXYGEN AT 2LPM VIA GALE BOLANOS/RN AT BEDSIDE AND AWARE
--- NOTE | 2018-11-13 17:20 | NUR ---
VITAL SIGNS WAS TAKEN, IS WITHIN NORMAL LIMIT AND PT WAS BEING PREP FOR THE PICC LINE INSERTION.
--- NOTE | 2018-11-13 17:30 | NUR ---
PICC LINE INSERTION WAS BEING DONE TO PT NOW BY PICC LINE NURSE, KELLY, PT SHOWS NO SIGN OF DISTRESS.
--- NOTE | 2018-11-13 18:01 | NUR ---
PICC LINE INSERTION WAS FINISHED NOW AND X-RAY IS BEING DONE TO CONFIRM PLACEMENT OF PICC LINE. PICC LINE WAS INSERTED ON THE RT UA, INTACT AND DOUBLE LUMEN. NO SIGN OF DISTRESS NOTED.
--- NOTE | 2018-11-13 18:10 | NUR ---
PT WAS STARTED ON IVF OF 1/2 NS AT 80ML/HR NOW AND FEEDING TUBE WAS STARTED WELL. NO SIGN OF DISTRESS NOTED. WILL MONITOR PT.
--- NOTE | 2018-11-13 18:30 | NUR ---
PT BLOOD GLUCOSE CHECK DONE AND RESULT WAS 78, AND WAS REPORTED TO DR. ANTONIA MD MADE NO ORDER.
--- NOTE | 2018-11-13 19:20 | NUR ---
ENDORSED PT TO POWER SWEEPER OPERATOR NURSE FOR CONTINUITY OF CARE, PT IS ASLEEP, RESPIRATION EVEN O2 SATURATION AT 93% ON 2L O2 VIA NC, PT IS STABLE AT THIS TIME.
--- NOTE | 2018-11-13 19:25 | NUR ---
RECEIVED ENDORSEMENT FROM AM SHIFT RN; PT IS APHASIC, UNABLE TO MAKE NEEDS KNOWN. CAN RESPOND THROUGH CLOSE-ENDED QUESTIONS. NO SOB OR DISTRESS NOTED. PATIENT HAS A PICC LINE ON RIGHT UPPER ARM, INTACT. PATIENT IS ON CONTINUOUS FEEDING OF GLUCERNA 1.2 VIA G-TUBE AT A RATE OF 60ML/HR WITH WATER FLUSHING OF 200ML/HR Q6H. PT HAS A ROMERO CATHETER IN PLACE. BED IN THE LOWEST POSITION, CALL LIGHT WITHIN REACH. INITIAL ASSESSMENT DONE. WILL CONTINUE TO MONITOR.
[2018-11-13 20:00] VITALS: BP 110/67
--- NOTE | 2018-11-13 21:05 | NUR ---
ASPIRATED 15mL OF FLUID IN G-TUBE. DUE MEDS GIVEN. NO SOB OR DISTRESS NOTED.
--- NOTE | 2018-11-13 23:20 | NUR ---
VITALS TAKEN, PATIENT REPOSITIONED. TOLERATED WELL. PATIENT ASLEEP, EYES CLOSED, VISIBLE CHEST RISE AND FALL NOTED.
--- NOTE | 2018-11-14 01:30 | NUR ---
ROUNDS MADE, NO DISTRESS NOTED.
--- NOTE | 2018-11-14 03:10 | NUR ---
PATIENT CLEANED, CHUX CHANGED, REPOSITIONED. TOLERATED WELL. NO DISTRESS NOTED.
[2018-11-14] MEDS: FLUCONAZOLE 200 MG/NS PREMIX 100 ML IV SCH (04:17)
[2018-11-14] MEDS: CLINDAMYCIN PHOS 600MG/D5W PM 50 ML IV SCH ×3 (04:17→21:08)
--- NOTE | 2018-11-14 05:30 | NUR ---
DUE MEDS GIVEN, TOLERATED WELL.
--- NOTE | 2018-11-14 06:20 | NUR ---
REMOVED PATIENT'S ROMERO CATHETER AT THIS TIME.
[2018-11-14] MEDS ORDERED: glipiZIDE 5 MG TAB GT SCH (06:30)
[2018-11-14] MEDS: ALBUTEROL SULFATE/IPRATROPIU 3 ML SOL IH SCH ×3 (06:48→20:12)
[2018-11-14] MEDS: BLOOD GLUCOSE MONITORING 1 DEV DEV FS SCH ×4 (07:04→21:31)
--- NOTE | 2018-11-14 07:14 | NUR ---
ENDORSED PATIENT TO AM SHIFT RN. PATIENT IN STABLE CONDITION.
--- NOTE | 2018-11-14 07:15 | NUR ---
RECEIVED PT FROM HOLISTIC HEALTH PRACTITIONER NURSE, PT IS ASLEEP AND LYING ON THE BED WITH SIDE RAILS UP AND CALL LIGHT WITHIN REACH, SAFETY AND FALL PRECAUTION INITIATED, PT HAS A PICC LINE ON THE RT UA WITH 1/2 NS INFUSING AT A RATE OF 80ML/HR. PT'S ROMERO CATHETER WAS REMOVED BY HOLISTIC HEALTH PRACTITIONER NURSE PER ENDORSEMENT AND PT HAS A G- TUBE IN PLACE AND ON A CONTINUOUS FEEDING OF GLUCERNA 1.2 AT A RATE OF 60ML/HR WITH WATER FLUSHING OF 200ML Q6H. RESPIRATION IS EVEN AND NO SIGN OF DISTRESS NOTED, WILL CONTINUE TO MONITOR PT.
[2018-11-14 08:00] VITALS: BP 99/64
--- NOTE | 2018-11-14 08:00 | NUR ---
PT'S VITAL SIGNS WAS CHECKED AND WITHIN NORMAL LIMIT, PT IS AWAKE AND LYING ON THE BED, NO SIGN OF DISTRESS NOTED AND WILL CONTINUE DHAVAL MONITOR PT.
--- NOTE | 2018-11-14 10:15 | NUR ---
PT WAS CLEANED AND REPOSITIONED AND WAS MADE COMFORTABLE ON THE BED, NO SIGN OF DISTRESS NOTED, WILL MONITOR PT.
[2018-11-14] MEDS: DOCUSATE 100 MG/10 ML UDC GT SCH ×2 (10:50→21:08)
[2018-11-14] MEDS: FERROUS SULFATE 300 MG/5 ML UDC GT SCH ×2 (10:50→21:08)
[2018-11-14] MEDS: LACTOBACILLUS RHAMNOSUS GG 1 EACH CAP GT SCH (10:51)
[2018-11-14] MEDS: SENNA 8.6 MG TAB PO SCH (10:51)
[2018-11-14] MEDS: lamoTRIgine 25 MG TAB GT SCH ×2 (10:51→21:09)
[2018-11-14] MEDS: ASPIRIN 81 MG TAB.CHEW GT SCH (10:52)
[2018-11-14] MEDS: METHIMAZOLE 5 MG TAB GT SCH ×2 (10:52→21:09)
--- NOTE | 2018-11-14 10:52 | NUR ---
PT IS WAKE AND ON HER RT LATERAL SIDE, G- TUBE WAS CHECKED AND RESIDUAL IS 40ML, MEDICATIONS WERE GIVEN VIA G-TUBE AND PT TOLERATED IT, NO SIGN OF DISTRESS NOTED AND WILL MONITOR OPT.
--- NOTE | 2018-11-14 11:00 | NUR ---
PT IS AWAKE AND WAS STARTED ON ANOTHER BAG OF FEEDING NOW, NO SIGN OF DISTRESS NOTED.
--- NOTE | 2018-11-14 11:33 | NUR ---
INFORMED DR. CAMPOS OF THE PT'S BLOOD GLUCOSE RESULT WHICH IS 65, DR. CAMPOS JUST MADE A VERBAL ORDER TO DECREASE IVF OF 1/2 NS FROM 80ML/HR TO 30ML/HR, NO SCHEDULED GLIPIZIDE FOR THE AM MEDICATIONS TODAY, INFORMED MD ABOUT IT. ACKNOWLEDGED AND WILL CARRY OUT ORDER.
--- NOTE | 2018-11-14 12:44 | NUR ---
PT IS AWAKE AND LYING ON THE BED, IV MEDICATION WAS GIVEN AND PT TOLERATED IT, NO SIGN OF DISTRESS NOTED AND WILL CONTINUE TO MONITOR PT.
[2018-11-14] MEDS: NACL 0.45% 1,000 ML IV SCH (14:06)
--- NOTE | 2018-11-14 14:20 | NUR ---
DR GISELL CAMPOS AT BEDSIDE REQUEST OXYGEN TITRATION TO ROOM AIR 88%-92% LUIS MIGUEL/TRIPP NOTIFIED
--- NOTE | 2018-11-14 14:30 | NUR ---
PER RT, DR. BETH PAZ MADE A VERBAL ORDER TO HIM TO DISCONTINUE O2 VIA NC AND DR. CAMPOS SAID THAT IF PT'S 02 SATURATION IS BET88%-92%, IT SHOULD BE OK. ACKNOWLEDGED AND WILL JUST MONITOR PT'S O2 SATURATION VIA RA.
[2018-11-14 14:56] LABS: BASOPHILS # (AUTO) 0.1 K/uL (0.00-0.22); BASOPHILS % (AUTO) 1.3 % (0.0-2.0); EOSINOPHILS # (AUTO) 0.2 K/uL (0-0.4); EOSINOPHILS % (AUTO) 2.5 % (0.0-4.0); HEMATOCRIT 28.5 % (36-48); HEMOGLOBIN 8.7 g/dL (12.0-16.0); LYMPHOCYTES # (AUTO) 2.1 K/uL (2.5-16.5); MEAN CORPUSCULAR HEMOGLOBIN 27 pg (27-31); MEAN CORPUSCULAR HGB CONC 31 g/dL (33-37); MEAN CORPUSCULAR VOLUME 87.3 fL (80-94); MONOCYTES # (AUTO) 0.9 K/uL (0.8-1.0); MONOCYTES % (AUTO) 9.4 % (1.7-9.3); NEUTROPHILS # (AUTO) 6.5 K/uL (1.8-7.7); NEUTROPHILS % (AUTO) 65.8 % (42.2-75.2); PLATELET COUNT (AUTO) 286 K/uL (140-450); RED BLOOD CELL COUNT(AUTO) 3.26 MIL/uL (4.20-5.40); RED CELL DISTRIBUTION WIDTH 14.8 % (11.6-13.7); WHITE BLOOD COUNT (AUTO) 9.9 K/uL (4.8-10.8)
[2018-11-14 15:00] LABS: ANION GAP 11.3 (8-16); CARBON DIOXIDE 26.3 mmol/L (21-32); POTASSIUM 3.6 mmol/L (3.5-5.1)
[2018-11-14 16:00] VITALS: BP 96/58
--- NOTE | 2018-11-14 17:40 | NUR ---
PT IS AWAKE AND BLOOD GLUCOSE CHECK WAS DONE TO PT AND RESULT IS 62, VITAL SIGNS WAS TAKEN AND RESULT IS WITHIN NORMAL LIMIT. PT IS AWAKE AND LYING ON THE BED, CALM AND NO SIGN OF DISTRESS NOTED. WILL MONITOR PT.
--- NOTE | 2018-11-14 17:45 | NUR ---
INFORMED DR. RUFFIN OF THE PT'S BLOOD GLUCOSE RESULT OF 62, MADE A VERBAL ORDER TO GIVE PT A D50 IV PUSH NOW. ACKNOWLEDGED AND WILL CARRY OUT MD ORDER.
--- NOTE | 2018-11-14 17:58 | NUR ---
PT IS AWAKE AND LYING ON THE BED AND D50 WAS GIVEN VIA IV PUSH FOR THE BLOOD GLUCOSE OF 62. WILL MONITOR PT.
[2018-11-14] MEDS ORDERED: DEXTROSE 50% 50 ML SYR IVP ONE ×2 (18:03→18:07)
--- NOTE | 2018-11-14 18:54 | NUR ---
PT BLOOD SUGAR WAS RECHECKED AND RESULT IS 126, PT IS AWAKE AND NO SIGN OF DISTRESS NOTED, CHARGE NURSE, NICOLE WAS MADE AWARE.
--- NOTE | 2018-11-14 19:05 | NUR ---
ENDORSED PT TO SUPERVISOR OF COMMUNICATIONS NURSEMARLENY FOR CONTINUITY OF CARE, PT IS AWAKE AND IS IN STABLE CONDITION, NO SIGN OF DISTRESS NOTED.
--- NOTE | 2018-11-14 19:06 | NUR ---
RECEIVED ENDORSEMENT FROM AM SHIFT RN; PT IS APHASIC, UNABLE TO MAKE NEEDS KNOWN. CAN RESPOND THROUGH CLOSE-ENDED QUESTIONS. NO SOB OR DISTRESS NOTED. PATIENT HAS A PICC LINE ON RIGHT UPPER ARM, INTACT. PATIENT IS ON CONTINUOUS FEEDING OF GLUCERNA 1.2 VIA G-TUBE AT A RATE OF 60ML/HR WITH WATER FLUSHING OF 200ML/HR Q6H. BED IN THE LOWEST POSITION, CALL LIGHT WITHIN REACH. INITIAL ASSESSMENT DONE. WILL CONTINUE TO MONITOR.
--- NOTE | 2018-11-14 21:00 | NUR ---
ASPIRATED LESS THAN 5mL RESIDUAL IN G-TUBE. DUE MEDS GIVEN, TOLERATED WELL.
--- NOTE | 2018-11-14 23:44 | NUR ---
VITALS TAKEN, NO DISTRESS NOTED.
--- NOTE | 2018-11-15 00:55 | NUR ---
G-TUBE FEEDING WAS REPLENISHED AT THIS TIME.
--- NOTE | 2018-11-15 03:02 | NUR ---
FREQUENT CHECKS MADE. PATIENT ASLEEP, NO SOB OR DISTRESS NOTED.
[2018-11-15] MEDS: CLINDAMYCIN PHOS 600MG/D5W PM 50 ML IV SCH ×2 (04:05→13:06)
[2018-11-15] MEDS: FLUCONAZOLE 200 MG/NS PREMIX 100 ML IV SCH (04:20)
--- NOTE | 2018-11-15 05:20 | NUR ---
ROUNDS DONE. NO SOB OR DISTRESS NOTED.
[2018-11-15] MEDS ORDERED: glipiZIDE 5 MG TAB GT SCH (06:30)
[2018-11-15] MEDS: BLOOD GLUCOSE MONITORING 1 DEV DEV FS SCH ×2 (06:50→11:34)
--- NOTE | 2018-11-15 07:10 | NUR ---
ENDORSED PATIENT TO AM SHIFT RN; PATIENT IN STABLE CONDITION.
--- NOTE | 2018-11-15 07:25 | NUR ---
RECEIVED PT REPORT FROM SURFACING MACHINE OPERATOR NURSE AT BEDSIDE. PT IS AWAKE IN THE BED, NO S/S OF ACUTE DISTRESS OR SOB NOTED. PT ON ROOM AIR, SKIN INTACT. PT HAS A RUE DOUBLE LUMEN PICC LINE, INFUSING 1/2 NS 30 ML/HR. PT IS INCONTINENT X 2. G-TUBE IN PLACE, INFUSING FORMULA GLUCERNA 1.2 60 ML/HR, WITH WATER FLUSHES 200 ML Q6H. FALL PRECAUTIONS IN PLACE. CALL LIGHT GIVEN WITHIN REACH. WILL CONTINUE TO MONITOR.
[2018-11-15 08:00] VITALS: BP 134/82
[2018-11-15] MEDS: ALBUTEROL SULFATE/IPRATROPIU 3 ML SOL IH SCH ×2 (08:20→14:22)
[2018-11-15 08:38] LABS: BASOPHILS # (AUTO) 0.1 K/uL (0.00-0.22); BASOPHILS % (AUTO) 0.8 % (0.0-2.0); EOSINOPHILS # (AUTO) 0.3 K/uL (0-0.4); HEMATOCRIT 28.6 % (36-48); HEMOGLOBIN 8.7 g/dL (12.0-16.0); LYMPHOCYTES # (AUTO) 1.1 K/uL (2.5-16.5); LYMPHOCYTES % (AUTO) 11.9 % (20.5-51.1); MEAN CORPUSCULAR HEMOGLOBIN 27 pg (27-31); MEAN CORPUSCULAR HGB CONC 31 g/dL (33-37); MEAN CORPUSCULAR VOLUME 86.8 fL (80-94); MONOCYTES # (AUTO) 0.9 K/uL (0.8-1.0); MONOCYTES % (AUTO) 10.4 % (1.7-9.3); NEUTROPHILS # (AUTO) 6.6 K/uL (1.8-7.7); NEUTROPHILS % (AUTO) 73.9 % (42.2-75.2); PLATELET COUNT (AUTO) 280 K/uL (140-450); RED CELL DISTRIBUTION WIDTH 14.5 % (11.6-13.7)
[2018-11-15 08:51] LABS: ANION GAP 10.2 (8-16); CARBON DIOXIDE 26.3 mmol/L (21-32); CREATININE 0.8 mg/dL (0.6-1.3); POTASSIUM 3.5 mmol/L (3.5-5.1)
--- NOTE | 2018-11-15 09:57 | NUR ---
CM NOTE RECEIVED ORDER TO DC TO [facility] TODAY. FAXED ORDER AND CLINICAL PACKET INCLUDING MICROS TO [facility]. PER [facility] OF [facility] PH# [phone], THE PATIENT CAN GO BACK TODAY TO RM [address] ORLANDO. CALLED [facility] PH# [phone] AND SPOKE WITH CELIA AND SCHEDULED A GURNEY TRANSPORT [facility] BILL FOR PATIENT RETURN TO [facility] SNF, CORE DRILLER TIME IS 1500. GERI ALMAGUER AWARE.
[2018-11-15] MEDS ORDERED: GLIP5TER PO (10:20)
[2018-11-15] MEDS ORDERED: TAP5 PO (10:20)
[2018-11-15] MEDS ORDERED: AMOX-999 PO (11:03)
[2018-11-15] MEDS ORDERED: LACT10CA1 PO (11:04)
[2018-11-15] MEDS: LACTOBACILLUS RHAMNOSUS GG 1 EACH CAP GT SCH (11:17)
[2018-11-15] MEDS: FERROUS SULFATE 300 MG/5 ML UDC GT SCH (11:17)
[2018-11-15] MEDS: SENNA 8.6 MG TAB PO SCH (11:17)
[2018-11-15] MEDS: DOCUSATE 100 MG/10 ML UDC GT SCH (11:17)
[2018-11-15] MEDS: METHIMAZOLE 5 MG TAB GT SCH (11:17)
[2018-11-15] MEDS: ASPIRIN 81 MG TAB.CHEW GT SCH (11:18)
[2018-11-15] MEDS: lamoTRIgine 25 MG TAB GT SCH (11:18)
--- NOTE | 2018-11-15 14:19 | NUR ---
REPORT GIVEN TO NURSE DICKENS AT [facility] FOR PT'S TRANSFER. PT'S SON, MR. NEGRO, WAS ALSO NOTIFIED OF PT'S TRANSFER.
--- NOTE | 2018-11-15 15:30 | NUR ---
PT HAS TRANSFERRED TO [facility] VIA [facility]. PT WAS GIVEN DISCHARGE COPIES OF DC INSTRUCTIONS. PICC LINE WAS DC'D, WRIST BANDS REMOVED. PT LEFT WITH ALL HER BELONGINGS IN STABLE CONDITION.
== END 2018-11-15 15:30 | DRG 720 ==
LOC: MED 01:45 → MTU 03:35
PROVIDERS: ADMIT Family Medicine; ATTEND Family Medicine
PROC: 02HV33Z Insertion of Infusion Device into Superior Vena Cava, Percutaneous Approach (ICD-10-PCS; principal; 2018-11-12)
PROC: B548ZZA Ultrasonography of Superior Vena Cava, Guidance (ICD-10-PCS; 2018-11-12)
DX: A41.9 Sepsis, unspecified organism (principal); E43 Unspecified severe protein-calorie malnutrition; J69.0 Pneumonitis due to inhalation of food and vomit; N17.0 Acute kidney failure with tubular necrosis; G82.50 Quadriplegia, unspecified; E87.0 Hyperosmolality and hypernatremia; G30.9 Alzheimer's disease, unspecified; I50.9 Heart failure, unspecified; F02.80 Dementia in other diseases classified elsewhere, unspecified severity, without behavioral disturbance, psychotic disturbance, mood disturbance, and anxiety; I11.0 Hypertensive heart disease with heart failure; N39.0 Urinary tract infection, site not specified; Z68.24 Body mass index [BMI] 24.0-24.9, adult; J44.1 Chronic obstructive pulmonary disease with (acute) exacerbation; G40.909 Epilepsy, unspecified, not intractable, without status epilepticus; E21.3 Hyperparathyroidism, unspecified; M81.0 Age-related osteoporosis without current pathological fracture; R65.20 Severe sepsis without septic shock; E11.65 Type 2 diabetes mellitus with hyperglycemia; T50.905A Adverse effect of unspecified drugs, medicaments and biological substances, initial encounter; Y92.89 Other specified places as the place of occurrence of the external cause; D50.9 Iron deficiency anemia, unspecified; K59.00 Constipation, unspecified; N18.9 Chronic kidney disease, unspecified
CPT/HCPCS: 36415; 36600; 71045; 74018; 80048; 80053; 81001; 82150; 82550; 82803; 82948; 83036; 83605; 83690; 83735; 83880; 84100; 84439; 84443; 84484; 85025; 85610; 85730; 87040; 87081; 87086; 93005; 94640; 96361; 96365; 99285; C1751; J0696; J1450; J1644; J1815; J3490; J7060; J7620; Q0092

== ENCOUNTER 2019-06-08 07:36 | Inpatient (IN) | payer MEDICAID, MEDICARE ==
[~2019-06-08] VITALS: Ht 162.6 cm; Wt 55.3 kg
[~2019-06-08 07:36] MED LIST changes: +AMOX-999 PO; -DONE10TA10 PO; -FLUC100T1 PO; +GLIP5TER PO; -KEN.1C TP; +LACT10CA1 PO; -METF500T PO; -MONT10TA35 PO
[2019-06-08 07:38] VITALS: BP 125/89
--- NOTE | 2019-06-08 07:45 | NUR ---
69F BIBA FROM [facility] FOR LOW SPO2 FROM POSSIBLE SEIZURE (UNWITNESSED). LAST KNOWN WELL 02006/08/19. SHALLOW BREATHING. WHEEZING ON B/L UPPER IJN. NO COUGH NOTED. GCS 11. INCOMPREHENSIBLE SOUNDS.
--- NOTE | 2019-06-08 07:46 | NUR ---
NOTIFIED DR. PATTON OF WHEEZING IN BL LUNG JIN.
[2019-06-08] MEDS ORDERED: NACL 0.9% 500 ML IV SCH (07:54)
--- NOTE | 2019-06-08 08:26 | NUR ---
XRAY AT BEDSIDE
[2019-06-08 08:34] LABS: BASOPHILS # (AUTO) 0.1 K/uL (0.00-0.22); BASOPHILS % (AUTO) 0.7 % (0.0-2.0); EOSINOPHILS # (AUTO) 0.1 K/uL (0-0.4); EOSINOPHILS % (AUTO) 0.7 % (0.0-4.0); HEMATOCRIT 44.6 % (36-48); HEMOGLOBIN 13.9 g/dL (12.0-16.0); LYMPHOCYTES # (AUTO) 0.7 K/uL (2.5-16.5); MEAN CORPUSCULAR HEMOGLOBIN 27 pg (27-31); MEAN CORPUSCULAR HGB CONC 31 g/dL (33-37); MEAN CORPUSCULAR VOLUME 87.6 fL (80-94); MONOCYTES # (AUTO) 0.7 K/uL (0.8-1.0); MONOCYTES % (AUTO) 6.6 % (1.7-9.3); NEUTROPHILS # (AUTO) 9.6 K/uL (1.8-7.7); PLATELET COUNT (AUTO) 286 K/uL (140-450); RED CELL DISTRIBUTION WIDTH 14.9 % (11.6-13.7); WHITE BLOOD COUNT (AUTO) 11.2 K/uL (4.8-10.8)
[2019-06-08] MEDS ORDERED: LORazepam 2 MG/ML VIAL ONE (08:39)
--- NOTE | 2019-06-08 08:42 | NUR ---
PT HAD SEIZURE FOR 1 MIN 50 SECONDS. STIFFENING OF THE LIMBS, AND REPETITIVE JERKING. PT EYES REMAINED OPEN. NO INCONTINENCE. PLACED ON 10L NONREBREATHER MASK DUE TO DESAT TO LOW 80% ON 4L NC. SEIZURE ENDED SPONTANEOUSLY WITHOUT MEDICATION.
[2019-06-08 08:45] LABS: ANION GAP 16.5 (8-16); CARBON DIOXIDE 25.1 mmol/L (21-32); POTASSIUM 4.6 mmol/L (3.5-5.1)
[2019-06-08] MEDS ORDERED: FERR325E14 PO (08:45)
[2019-06-08] MEDS ORDERED: MULT-1868 PO (08:45)
[2019-06-08] MEDS ORDERED: LORazepam 2 MG/ML VIAL IVP ONE (08:45)
[2019-06-08] MEDS ORDERED: GLIP5TER GT (08:45)
[2019-06-08] MEDS ORDERED: CALC1CAP PO (08:45)
[2019-06-08 08:53] LABS: ALBUMIN 3.3 g/dL (3.4-5.0); TOTAL BILIRUBIN 0.4 mg/dL (0.0-1.0)
[2019-06-08 08:57] LABS: LYMPHOCYTES % (AUTO) 6.6 % (20.5-51.1); NEUTROPHILS % (AUTO) 85.4 % (42.2-75.2)
[2019-06-08 08:59] LABS: PROTHROMBIN TIME 10.4 secs (10.8-13.4)
--- NOTE | 2019-06-08 09:09 | NUR ---
URINE SAMPLE VIA STRAIGHT CATH HANDED TO LAB.
[2019-06-08] MEDS ORDERED: LEVOFLOXACIN 500 MG/D5W PREMIX 100 ML IV ONE (09:10)
[2019-06-08] MEDS ORDERED: NACL 0.9% 1,000 ML IV ONE (09:10)
[2019-06-08 09:18] LABS: APPEARANCE,URINE SL CLOUDY (CLEAR); BILIRUBIN,URINE NEGATIVE (NEGATIVE); BLOOD, URINE 3+ (NEGATIVE); COLOR,URINE YELLOW (YELLOW); LEUKOCYTE ESTERASE ,URINE 2+ (NEGATIVE); NITRITE, URINE POSITIVE (NEGATIVE); PH,URINE 6.5 (5.0-9.0); UGLUCOSE TRACE (NEGATIVE)
[2019-06-08 09:26] LABS: RBC,URINE 11-20 (MOD) /HPF (0-5); URINE AMORPHOUS URATE 1+ /HPF (None Seen); WBC,URINE 20-60 /HPF (0-5)
[2019-06-08] MEDS ORDERED: NACL 0.9% 1,000 ML IV SCH (10:42)
[2019-06-08] MEDS ORDERED: ONDANSETRON 4 MG/2 ML VIAL IM/IVP PRN (10:45)
[2019-06-08] MEDS ORDERED: ACETAMINOPHEN 325 MG TAB PO PRN (10:45)
[2019-06-08] MEDS ORDERED: HYDROcodone/APAP 7.5/325 MG 1 TAB PO PRN (10:45)
[2019-06-08] MEDS ORDERED: DOCUSATE SODIUM 100 MG GELCAP PO PRN (10:45)
--- NOTE | 2019-06-08 11:20 | NUR ---
Dr. Varner evaluating patient at bedside.
[2019-06-08 11:51] LABS: BARBITURATE, URINE NEG. ng/ml (NEG <=200); BENZODIAZEPINE, URINE NEG. ng/mL (NEG <=200); CANNABINOID, URINE NEG. ng/mL (NEG <=50); COCAINE, URINE NEG. ng/mL (NEG <=300); OPIATE, URINE NEG. ng/mL (NEG <=2000)
[2019-06-08 12:05] LABS: PHENCYCLIDINE SCREEN,URINE NEG. ng/mL (NEG <=25)
[2019-06-08 12:10] LABS: CHOL/HDL RATIO 2.3 (1-4.5); FREE T4 (FREE THYROXINE) 0.75 ng/dL (0.76-1.46); MAGNESIUM 1.9 mg/dL (1.8-2.4); PHOSPHORUS 3.8 mg/dL (2.5-4.9); THYROID STIMULATING HORMONE 26.23 uIU/mL (0.34-3.74)
--- NOTE | 2019-06-08 12:15 | NUR ---
LAB AT BEDSIDE FOR BLOOD DRAW
--- NOTE | 2019-06-08 12:40 | NUR ---
Ultrasound at bedside.
[2019-06-08] MEDS ORDERED: DEXTROSE 50% 50 ML SYR IVP PRN (12:55)
--- NOTE | 2019-06-08 13:25 | NUR ---
Patient will be admitted to care of DR. ORLANDO. Admited to TELE. Will go to room 121A. Belongings list completed. Report to FRANSICO ALMAGUER.
--- NOTE | 2019-06-08 13:25 | NUR ---
PT ARRIVED ON UNIT VIA GORNEY. PT HAS 20 G IV TO R FOREARM. PT ON 5L SIMPLE MASK, SPO2 93%, RR 18,BP 150/80, HR 105, T 98.8. NO SIGNS OF ACUTE DISTRESS AT THIS TIME. WILL CONTINUE TO ASSESS AND CONTINUE PLAN OF CARE.
--- NOTE | 2019-06-08 13:30 | NUR ---
SPO2 95% SIMPLE MASK. BREATHING EVEN AND UNLABORED, NO SIGNS OF ACUTE DISTRESS WILL CONTINUE TO ASSESS.
--- NOTE | 2019-06-08 14:00 | NUR ---
SPO2 97% ON 5L SIMPLE MASK. BREATHING EVEN AND UNLABORED ON ROOM AIR. WILL CONTINUE TO ASSESS FOR CHANGES IN CONDITION.
[2019-06-08] MEDS: DEXT 5% /NACL 0.9% 1,000 ML IV SCH (14:10)
[2019-06-08] MEDS: CLINDAMYCIN 600 MG in DEXTROSE 5% 50 ML IV SCH ×2 (14:13→20:49)
[2019-06-08 16:00] VITALS: BP 154/70
--- NOTE | 2019-06-08 16:00 | NUR ---
AFTERNOON VITALS OBTAINED AND TRENDING WITH ADMISSION VITALS. BREATHING EVEN AND UNLABORED ON 5L SIMPLE MASK. WILL CONTINUE TO ASSESS FOR CHANGES IN CONDITION.
[2019-06-08] MEDS: BLOOD GLUCOSE MONITORING 1 DEV DEV FS SCH ×2 (16:21→20:50)
[2019-06-08] MEDS: INSULIN LISPRO SLIDING SCALE 100 UNITS/ML VIAL SUBQ PRN ×2 (16:53→20:47)
[2019-06-08] MEDS: FERROUS SULFATE 325 MG TABEC PO SCH (16:53)
--- NOTE | 2019-06-08 17:19 | NUR ---
PT ON 5 L SIMPLE MASK. SPO2 94%, BREATHING EVEN AND UNLABORED. WILL CONTINUE TO ASSESS FOR CHANGES IN CONDITION.
--- NOTE | 2019-06-08 18:19 | NUR ---
PT IN BED, BREATHING EVEN AND UNLABORED. PT ON SIMPLE MASK AT 5L SPO2 96%. NO SIGNS OF ACUTE DISTRESS AT THIS TIME. WILL CONTINUE TO ASSESS FOR CHANGES IN CONDITION.
--- NOTE | 2019-06-08 18:25 | NUR ---
CALLED [facility] REGARDING TUBE FEEDING. [facility] WILL SEND UP TUBE FEEDING GLUCERNA 1.2
--- NOTE | 2019-06-08 19:06 | NUR ---
PT ENDORSED TO ARTI. PT ON 5 L NC SPO2 96%. D5 NS AT 80 ML/HR. NO SIGNS OF ACUTE DISTRESS. TUBE FEEDING ENDORSED TO NIGHT NURSE, SUPPLIES AT BEDSIDE.
--- NOTE | 2019-06-08 19:07 | NUR ---
RECEIVED REPORT FROM DAY SHIFT NURSE. PT SLEEPING. NO S/S OF RESP DISTRESS. NO S/S OF PAIN. ON O2 AT 5L VIA SIMPLE MASK. PT IS QUADRIPLEGIC. IV TO LEFT FA #20G, D5NS AT 80 ML/HR INFUSING WELL. G-TUBE IN PLACE. SEIZURE AND FALL PRECAUTION IN PLACE. CALL LIGHT WITHIN REACH.
[2019-06-08 20:00] VITALS: BP 150/88
--- NOTE | 2019-06-08 20:30 | NUR ---
GT RESIDUAL 0. STARTED GT FEEDING AT 40 ML/HR ORDERED. ASPIRATION PRECAUTION IN PLACE.
[2019-06-08] MEDS: lamoTRIgine 25 MG TAB PO SCH (20:50)
--- NOTE | 2019-06-08 22:30 | NUR ---
PT WAS CLEANSED AND CHANGED. REPOSITIONED Q2H. PT TOLERATING FEEDING WELL. ASPIRATION, SEIZURE AND FALL PRECAUTION IN PLACE. CALL LIGHT WITHIN REACH.
[2019-06-09] VITALS: BP 110/65
--- NOTE | 2019-06-09 01:05 | NUR ---
GT RESIDUAL 5 ML. NO S/S OF PAIN OR SOB. PT KEPT CLEAN, DRY AND COMFORTABLE.
--- NOTE | 2019-06-09 03:07 | NUR ---
ENDORSED PT TO OTHER PRESTO LOG OPERATOR NURSE. NO S/S OF RESP DISTRESS. NO SEIZURE ACTIVITY NOTED. PT IN STABLE CONDITION.
--- NOTE | 2019-06-09 03:08 | NUR ---
RECEIVED REPORT FROM RN. PT IS APHASIC. PT ON SIMPLE MASK 5L O2. RESPIRATIONS ARE EQUAL AND UNLABORED. IV ON L FA 20G IVF INFUSING PER ORDERS. SKIN IS INTACT. G TUBE PT ON GLUCERNA 1.2 INFUSING AT 40ML/H FWF 300CC/Q6H. SAFETY MEASURES ARE IN PLACE. WILL ROUND FREQUENTLY.
[2019-06-09] MEDS: DEXT 5% /NACL 0.9% 1,000 ML IV SCH ×3 (03:20→21:25)
[2019-06-09 04:00] VITALS: BP 120/71
--- NOTE | 2019-06-09 04:31 | NUR ---
VITAL SIGNS ARE WITHIN NORMAL LIMITS. ALL NEEDS MET AT THIS TIME. CALL LIGHT IS WITHIN REACH. SAFETY MEASURES ARE IN PLACE. WILL CONTINUE TO MONITOR.
[2019-06-09] MEDS: CLINDAMYCIN 600 MG in DEXTROSE 5% 50 ML IV SCH ×3 (05:03→21:24)
--- NOTE | 2019-06-09 05:03 | NUR ---
CLEOCIN NOW INFUSING PER ORDERS. ALL NEEDS MET AT THIS TIME.
[2019-06-09] MEDS: INSULIN LISPRO SLIDING SCALE 100 UNITS/ML VIAL SUBQ PRN ×4 (06:24→21:33)
[2019-06-09] MEDS: BLOOD GLUCOSE MONITORING 1 DEV DEV FS SCH ×4 (06:26→21:24)
--- NOTE | 2019-06-09 06:27 | NUR ---
BLOOD SUGAR IS 180 GAVE INSULIN PER SLIDING SCALE. PT TOLERATED WELL. ON CONTINUOUS G TUBE FEEDING. WILL CONTINUE TO MONITOR.
--- NOTE | 2019-06-09 07:20 | NUR ---
GAVE BEDSIDE REPORT TO DAY RN. PT ENDORSED IN STABLE CONDITION.
--- NOTE | 2019-06-09 07:30 | NUR ---
RECEIVED PT FROM PM SHIFT. PT AWAKE, ALERT.ON O2 5L/MIN. ON D5NS AT 80 CC/HR TO LEFT FA # 20. PT HAS G-TUBE FEEDING GLUCERNA1.2 AT 40 CC/HR WITH WATER FLUSH 300 ML Q 6 HRS. RESIDUAL CHECKED ZERO. POC EXPLAINED, WILL CONTINUE TO MONITOR.
[2019-06-09 08:00] VITALS: BP 126/74
[2019-06-09] MEDS: ASPIRIN 81 MG TAB.CHEW PO SCH (08:17)
[2019-06-09] MEDS: LACTOBACILLUS RHAMNOSUS GG 1 EACH CAP PO SCH (08:17)
[2019-06-09] MEDS: lamoTRIgine 25 MG TAB PO SCH (08:17)
[2019-06-09] MEDS: FERROUS SULFATE 325 MG TABEC PO SCH ×2 (08:17→17:00)
--- NOTE | 2019-06-09 08:29 | NUR ---
PATIENT HAS BEEN SCREENED AND CATEGORIZED HIGH NUTRITION RISK. PATIENT WILL BE SEEN WITHIN 1-2 DAYS OF ADMISSION. 06/08/19-06/09/[address]
[2019-06-09 10:11] LABS: BASOPHILS # (AUTO) 0.1 K/uL (0.00-0.22); EOSINOPHILS # (AUTO) 0.2 K/uL (0-0.4); EOSINOPHILS % (AUTO) 2.4 % (0.0-4.0); HEMATOCRIT 39.8 % (36-48); HEMOGLOBIN 12.6 g/dL (12.0-16.0); LYMPHOCYTES # (AUTO) 1.3 K/uL (2.5-16.5); LYMPHOCYTES % (AUTO) 14.4 % (20.5-51.1); MEAN CORPUSCULAR HEMOGLOBIN 28 pg (27-31); MEAN CORPUSCULAR HGB CONC 32 g/dL (33-37); MEAN CORPUSCULAR VOLUME 87.9 fL (80-94); MONOCYTES # (AUTO) 0.8 K/uL (0.8-1.0); NEUTROPHILS # (AUTO) 6.9 K/uL (1.8-7.7); NEUTROPHILS % (AUTO) 73.2 % (42.2-75.2); PLATELET COUNT (AUTO) 249 K/uL (140-450); RED BLOOD CELL COUNT(AUTO) 4.53 MIL/uL (4.20-5.40); RED CELL DISTRIBUTION WIDTH 15.1 % (11.6-13.7); WHITE BLOOD COUNT (AUTO) 9.4 K/uL (4.8-10.8)
[2019-06-09 10:55] LABS: ANION GAP 15.5 (8-16); CARBON DIOXIDE 23.8 mmol/L (21-32); CREATININE 0.9 mg/dL (0.6-1.3); POTASSIUM 4.3 mmol/L (3.5-5.1)
[2019-06-09 11:03] LABS: MAGNESIUM 1.9 mg/dL (1.8-2.4); PHOSPHORUS 3.3 mg/dL (2.5-4.9)
--- NOTE | 2019-06-09 11:29 | NUR ---
PT ACCIDENTLY PULLED OUT IV, WILL INSERT A NEW IV.
[2019-06-09 12:00] VITALS: BP 116/68
--- NOTE | 2019-06-09 13:00 | NUR ---
REINSERTED IV TO RIGHT FA # 22.
--- NOTE | 2019-06-09 13:30 | NUR ---
ENDORSED PT TO BENNETT ALMAGUER.
--- NOTE | 2019-06-09 13:53 | NUR ---
*S.T. Bedside swallow eval completed* See report for details. Pt presents w/ moderate oropharyngeal dysphagia c/b labial spillage, diminished labial seal and lingual control, delayed pharyngeal swallow initiation across all textures. Pt w/ BUE discoordination, but refused to allow clinician to feed, thus spilling P.O. trials on self and bed linens. Pt was not given P.O. trials solids due to lingual and labial discoordination and weakness. Recommend: 1) Continue G-tube feeding as primary source of nutrition and hydration. 2) Puree and thin liquids for oral gratification only. 3) P.O. meds crushed and given as g-tube bolus or mixed w/ puree given P.O. 4) 1:1 feeder or nsg supervision if pt insists on self-feeding w/ aspiration precautions Pt does not present as a good candidate to advance to solids. Further swallow tx is not indicated. DC to nsg care. Endorsed to TRIPP Mendoza. Time 9834-3411
--- NOTE | 2019-06-09 15:14 | NUR ---
06/09/19 RD INITIAL ASSESSMENT COMPLETED PLEASE REFER TO NUTRITION ASSESSMENT UNDER CARE ACTIVITY FOR ESTIMATED NUTRITIONAL NEEDS. 1. CONTINUE GLUCERNA 1.2 @ 40 ML/HR X 24 HOUR 2. RECOMMEND FREE WATER FLUSH [address] TO FOLLOW-UP 2-3 DAYS, HIGH RISK ALEE SCHAEFFER RD
[2019-06-09 16:00] VITALS: BP 153/86
--- NOTE | 2019-06-09 16:00 | NUR ---
VS TAKEN, WNL. PATIENT RESTING IN BED COMFORTABLY. RESPIRATION EVEN AND UNLABORED. GT INTACT AND PATENT. IV INTACT AND PATENT TO RFA. WILL CONTINUE TO MONITOR.
--- NOTE | 2019-06-09 19:14 | NUR ---
ENDORSED TO SLURRY TANK TENDER NURSE PATIENT IS IN STABLE CONDITION.
--- NOTE | 2019-06-09 19:15 | NUR ---
RECEIVED REPORT FROM AM SHIFT RN BENNETT, FOR PT'S CONTINUITY OF CARE. PT IS LYING DOWN, AWAKE, AAOX1, WITH INCREASING SIGNS OF AGITATION. PT IS ON ROOM AIR, IS ON BUS COMPANY MANAGER, HAS RIGHT FA 22G INFUSING WITH D5NS AT 80ML/HR, HAS G-TUBE FEEDING AT THE RATE OF 40ML/HR, PT IS INCONTINENT. BED IS ON LOW POSITION, SIDE RAILS ARE UP, CALL LIGHT WITHIN REACH, SEIZURE PROTOCOL IN PLACE, FALL RISK PROTOCOL IN PLACE. WILL MONITOR PT THROUGHOUT SHIFT.
[2019-06-09 20:00] VITALS: BP 151/101
--- NOTE | 2019-06-09 21:30 | NUR ---
BLOOD GLUCOSE CHECKED AND CHARTED. ADMINISTERED SCHEDULED PO, AND IV ABX MEDICATIONS, AND SUBQ INSULIN PER SLIDING SCALE ORDERED. PT TOLERATED THEM WELL. CHANGED AND REPOSITIONED PT. WILL CONTINUE TO MONITOR PT.
--- NOTE | 2019-06-09 22:00 | NUR ---
HUNG NEW FEEDING, RESIDUAL OF 30ML. PT TOLERATED IT WELL. WILL CONTINUE TO MONITOR PT.
[2019-06-09] MEDS ORDERED: LORazepam 2 MG/ML VIAL IVP ONE (23:20)
--- NOTE | 2019-06-09 23:30 | NUR ---
PT GETTING RESTLESS AND MORE AGITATED, NOTIFIED MD, ADMINISTERED NEW ORDER OF IV PUSH ATIVAN ONCE ORDERED. MD ORDERED SOFT WRIST RESTRAINT, CARRIED OUT ORDER. PT REFUSED VS CHECK. WILL CONTINUE TO MONITOR PT.
--- NOTE | 2019-06-10 02:45 | NUR ---
MADE ROUNDS. PT LYING DOWN APPEARS TO BE ASLEEP WITH NO SIGNS OF DISTRESS. WILL CONTINUE TO MONITOR PT.
[2019-06-10 04:00] VITALS: BP 142/78
--- NOTE | 2019-06-10 04:00 | NUR ---
VS CHECKED AND CHARTED. CHANGED AND REPOSITIONED. PT TOLERATED ACTIVITY WELL. WILL CONTINUE TO MONITOR PT.
[2019-06-10] MEDS: CLINDAMYCIN 600 MG in DEXTROSE 5% 50 ML IV SCH ×3 (06:00→21:52)
[2019-06-10] MEDS ORDERED: LEVOTHYROXINE 0.025 MG TAB PO SCH (06:30)
[2019-06-10 06:42] LABS: BASOPHILS # (AUTO) 0.1 K/uL (0.00-0.22); BASOPHILS % (AUTO) 1.2 % (0.0-2.0); EOSINOPHILS # (AUTO) 0.3 K/uL (0-0.4); EOSINOPHILS % (AUTO) 3.4 % (0.0-4.0); HEMATOCRIT 43.8 % (36-48); HEMOGLOBIN 14.1 g/dL (12.0-16.0); LYMPHOCYTES # (AUTO) 1.6 K/uL (2.5-16.5); LYMPHOCYTES % (AUTO) 17.4 % (20.5-51.1); MEAN CORPUSCULAR HEMOGLOBIN 28 pg (27-31); MEAN CORPUSCULAR HGB CONC 32 g/dL (33-37); MEAN CORPUSCULAR VOLUME 87.8 fL (80-94); MONOCYTES # (AUTO) 1.3 K/uL (0.8-1.0); MONOCYTES % (AUTO) 13.8 % (1.7-9.3); NEUTROPHILS % (AUTO) 64.2 % (42.2-75.2); PLATELET COUNT (AUTO) 188 K/uL (140-450); RED BLOOD CELL COUNT(AUTO) 4.99 MIL/uL (4.20-5.40); RED CELL DISTRIBUTION WIDTH 14.9 % (11.6-13.7); WHITE BLOOD COUNT (AUTO) 9.4 K/uL (4.8-10.8)
[2019-06-10] MEDS: BLOOD GLUCOSE MONITORING 1 DEV DEV FS SCH ×4 (06:42→21:52)
[2019-06-10] MEDS: INSULIN LISPRO SLIDING SCALE 100 UNITS/ML VIAL SUBQ PRN ×3 (06:50→22:00)
--- NOTE | 2019-06-10 06:52 | NUR ---
BLOOD GLUCOSE CHECKED AND CHARTED. ADMINISTERED SCHEDULED PO AND SUBQ INSULIN PER SLIDING SCALE ORDERED. PT TOLERATED THEM WELL. PT NEEDS LINEN CHANGED, ENDORSED TO AM SHIFT GAS STATION ATTENDANT. PT COMFORTABLE, WITH NO SIGNS OF DISTRESS. WILL ENDORSE TO AM SHIFT RN FOR PT'S CONTINUITY OF CARE.
--- NOTE | 2019-06-10 07:05 | NUR ---
RECEIVED PT FROM CLAMMER NURSEGERRI, PT IS AWAKE AND LYING ON THE BED WITH SIDE RAILS UP AND CALL LIGHT WITHIN REACH, SERVICE UNIT OPERATOR OIL WELL ON THE BEDSIDE DRAWING BLOOD FROM THE PT, IV LINE ON THE RT FA G. 22 WITH D5NS INFUSING AT 80ML/HR, G-TUBE IN PLACE ON THE LEFT ABDOMINAL AREA ON CONTINUOUS FEEDING OF GLUCERNA 1.2 AT 40ML/HR WITH WATER FLUSHING OF 300ML/HR Q6H, NO SIGN OF DISTRESS NOTED, RESPIRATION IS EVEN ON ROOM AIR. WILL CONTINUE TO MONITOR PT.
[2019-06-10 08:00] VITALS: BP 154/125
[2019-06-10 08:01] LABS: ANION GAP 15.3 (8-16); CARBON DIOXIDE 25.7 mmol/L (21-32); CREATININE 0.8 mg/dL (0.6-1.3)
[2019-06-10 08:18] LABS: MAGNESIUM 1.8 mg/dL (1.8-2.4); PHOSPHORUS 3.5 mg/dL (2.5-4.9)
[2019-06-10] MEDS ORDERED: LEVOFLOXACIN 750 MG/D5W PREMIX 150 ML IV SCH (09:00)
[2019-06-10] MEDS: ASPIRIN 81 MG TAB.CHEW PO SCH (09:43)
--- NOTE | 2019-06-10 09:43 | NUR ---
PT IS AWAKE AND MEDICATIONS WERE GIVEN VIA G-TUBE AND NO RESIDUAL NOTED, WILL MONITOR P.
[2019-06-10] MEDS: LACTOBACILLUS RHAMNOSUS GG 1 EACH CAP PO SCH (09:44)
[2019-06-10] MEDS: FERROUS SULFATE 325 MG TABEC PO SCH ×2 (09:44→16:31)
[2019-06-10] MEDS: NACL 0.45% 1,000 ML IV SCH (09:46)
[2019-06-10 12:00] VITALS: BP 143/85
--- NOTE | 2019-06-10 12:32 | NUR ---
CLEOCIN IVPB WAS GIVEN TO PT NOW. WILL MONITOR PT.
[2019-06-10 16:00] VITALS: BP 159/90
--- NOTE | 2019-06-10 16:26 | NUR ---
BLOOD GLUCOSE CHECK DONE AND RESULT IS 191, INSULIN COVERAGE NEEDED. WILL MONITOR PT.
--- NOTE | 2019-06-10 16:31 | NUR ---
PT IS AWAKE AND INSULIN 2UNITS WAS GIVEN ON THE LEFT UA FOR BLOOD GLUCOSE OF 191, MEDICATION WAS GIVEN VIA G-TUBE AN NO RESIDUAL NOTED. WILL MONITOR PT.
--- NOTE | 2019-06-10 19:05 | NUR ---
ENDORSED PT TO EXPLORATION GEOLOGIST NURSEENRIQUE FOR CONTINUITY OF CARE.
--- NOTE | 2019-06-10 19:10 | NUR ---
RECEIVED REPORT FROM DAY SHIFT NURSE WINIFRED ALMAGUER.PT IS AWAKE AND LYING ON THE BED WITH SIDE RAILS UP AND CALL LIGHT WITHIN REACH,GCS 14. PT ORIENTED TO NAME. SKIN WARM AND DRY TO TOUCH. RR EVEN/UNLABORED. NAD NOTED. IV LINE ON THE RT FA G. 22 WITH D5NS INFUSING AT 80ML/HR, G-TUBE IN PLACE ON THE LEFT ABDOMINAL AREA ON CONTINUOUS FEEDING OF GLUCERNA 1.2 AT 40ML/HR WITH WATER FLUSHING OF 300ML/HR Q6H, NO SIGN OF DISTRESS NOTED, RESPIRATION IS EVEN ON ROOM AIR. CAP REFILL<3. WILL CONTINUE TO MONITOR PT.
[2019-06-10 19:51] VITALS: BP 145/88
[2019-06-10] MEDS ORDERED: CLINDAMYCIN 600 MG/4 ML VIAL ONE (21:37)
--- NOTE | 2019-06-10 23:39 | NUR ---
SPOKE WITH MD ABOUT RESTRAINT RENEWAL ORDER, ORDER TO BE PLACED
[2019-06-11] VITALS: BP 135/85
[2019-06-11 03:47] VITALS: BP 129/75
[2019-06-11] MEDS ORDERED: CLINDAMYCIN 600 MG/4 ML VIAL ONE (04:17)
[2019-06-11] MEDS: CLINDAMYCIN 600 MG in DEXTROSE 5% 50 ML IV SCH ×2 (04:22→12:36)
[2019-06-11] MEDS: BLOOD GLUCOSE MONITORING 1 DEV DEV FS SCH ×2 (06:15→11:30)
[2019-06-11] MEDS ORDERED: LEVOTHYROXINE 0.05 MG TAB PO SCH (06:30)
[2019-06-11 06:56] LABS: ANION GAP 16.9 (8-16); CARBON DIOXIDE 23.9 mmol/L (21-32); CREATININE 0.7 mg/dL (0.6-1.3); POTASSIUM 3.8 mmol/L (3.5-5.1)
[2019-06-11 07:15] LABS: BASOPHILS # (AUTO) 0.1 K/uL (0.00-0.22); BASOPHILS % (AUTO) 0.7 % (0.0-2.0); EOSINOPHILS # (AUTO) 0.3 K/uL (0-0.4); HEMATOCRIT 43.9 % (36-48); HEMOGLOBIN 14.1 g/dL (12.0-16.0); LYMPHOCYTES # (AUTO) 1.5 K/uL (2.5-16.5); LYMPHOCYTES % (AUTO) 15.8 % (20.5-51.1); MEAN CORPUSCULAR HEMOGLOBIN 28 pg (27-31); MEAN CORPUSCULAR HGB CONC 32 g/dL (33-37); MEAN CORPUSCULAR VOLUME 87.5 fL (80-94); MONOCYTES # (AUTO) 1.3 K/uL (0.8-1.0); NEUTROPHILS # (AUTO) 6.6 K/uL (1.8-7.7); NEUTROPHILS % (AUTO) 67.5 % (42.2-75.2); PLATELET COUNT (AUTO) 248 K/uL (140-450); RED BLOOD CELL COUNT(AUTO) 5.01 MIL/uL (4.20-5.40); RED CELL DISTRIBUTION WIDTH 14.8 % (11.6-13.7); WHITE BLOOD COUNT (AUTO) 9.8 K/uL (4.8-10.8)
--- NOTE | 2019-06-11 07:17 | NUR ---
REPORT GIVEN TO BENNETT ALMAGUER
--- NOTE | 2019-06-11 07:30 | NUR ---
RECEIVED REPORT FROM STEEL POST INSTALLER SUPERVISOR NURSE. PATIENT IS IN STABLE CONDITION.
[2019-06-11 08:00] VITALS: BP 144/86
[2019-06-11] MEDS: NACL 0.45% 1,000 ML IV SCH (08:45)
[2019-06-11] MEDS: LACTOBACILLUS RHAMNOSUS GG 1 EACH CAP PO SCH (09:14)
[2019-06-11] MEDS: ASPIRIN 81 MG TAB.CHEW PO SCH (09:14)
[2019-06-11] MEDS ORDERED: FERROUS SULFATE 300 MG/5 ML UDC GT SCH (09:30)
--- NOTE | 2019-06-11 09:51 | NUR ---
PATIENT IS AWAKE, VERBALLY RESPONSIVE. RESPIRATION EVEN AND UNLABORED. MEDICATIONS GIVEN ORDERED VIA GT TUBE. TOLERATED WELL. GT FEEDING GLUCERNA 1.2 STARTED WITH NEW BOTTLE. GT INTACT AND PATENT. IV SITE INTACT, NO EDEMA NOTED. PROVIDED PERICARE AND REPOSITIONED FOR COMFORT. DENIES PAIN. NO ACUTE DISTRESS NOTED. CALL LIGHT WITHIN REACH. WILL CONTINUE TO MONITOR.
[2019-06-11] MEDS ORDERED: ROC1PM IV (10:10)
[2019-06-11] MEDS ORDERED: FER300L GT (10:10)
[2019-06-11] MEDS ORDERED: SYN.05 PO (10:10)
[2019-06-11] MEDS ORDERED: LAM200 PO (10:10)
[2019-06-11] MEDS ORDERED: INSU100S5 SQ (10:11)
[2019-06-11 12:00] VITALS: BP 148/94
[2019-06-11] MEDS: INSULIN LISPRO SLIDING SCALE 100 UNITS/ML VIAL SUBQ PRN (12:41)
--- NOTE | 2019-06-11 12:42 | NUR ---
PATIENT IS IN BED RESTING COMFORTABLY. NO ACUTE DISTRESS. INSULIN COVERAGE GIVEN. IV ANTIBIOTICS GIVEN ORDERED. CALL LIGHT IN REACH.
--- NOTE | 2019-06-11 13:30 | NUR ---
SPOKE WITH Candis YADAV IN REGARDS TO PATIENT BEING TRANSFERRED BACK TO [facility]. CALLED CASE MANAGEMENT IN REGARDS TO TRANSFER PATIENT ARRANGEMENTS BEING MADE.
--- NOTE | 2019-06-11 13:52 | NUR ---
PT ACCEPTED AT [facility] UNDER THE CARE OF DR JOHANNY SONG ROOM 14A #TO GIVE REPORT [phone] [facility] TRANSPORT WITH [facility] [employer] SUPERVISOR TIME IS 1730
--- NOTE | 2019-06-11 14:39 | NUR ---
PER [facility]ANDU ROCK FRUIT SORTER OF [place] TO PAY FOR TRANSPORT. ARRANGED TRANSPORT WITH [facility] [phone] WET PRIMER POWDER BLENDER TIME 4PM NOTIFIED BENNETT ALMAGUER .
--- NOTE | 2019-06-11 15:30 | NUR ---
REPORT GIVEN TO TRIPP CROCKER AT [facility] IN REGARDS TO PATIENT BEING TRANSFERRED, AWAITING FOR [facility]ER FROM TRANSPORTATION AT 1600.
[2019-06-11 16:00] VITALS: BP 145/85
--- NOTE | 2019-06-11 17:04 | NUR ---
ELVIRA WNL. PICKED UP BY TRANSPORTATION. DISCHARGE TO [facility] WITH [facility], ALL BELONGINGS TAKEN WITH PT.
[2019-06-12] MEDS ORDERED: FERROUS SULFATE 300 MG/5 ML UDC GT SCH (09:00)
== END 2019-06-11 17:10 | DRG 720 ==
LOC: MED 07:36 → MTU 10:42
PROVIDERS: ADMIT Family Medicine; ATTEND Family Medicine
DX: A41.9 Sepsis, unspecified organism (principal); J96.21 Acute and chronic respiratory failure with hypoxia; J69.0 Pneumonitis due to inhalation of food and vomit; G82.50 Quadriplegia, unspecified; G93.41 Metabolic encephalopathy; N17.9 Acute kidney failure, unspecified; R13.10 Dysphagia, unspecified; E44.1 Mild protein-calorie malnutrition; N39.0 Urinary tract infection, site not specified; I50.9 Heart failure, unspecified; K21.9 Gastro-esophageal reflux disease without esophagitis; G40.909 Epilepsy, unspecified, not intractable, without status epilepticus; G30.9 Alzheimer's disease, unspecified; F02.80 Dementia in other diseases classified elsewhere, unspecified severity, without behavioral disturbance, psychotic disturbance, mood disturbance, and anxiety; I11.0 Hypertensive heart disease with heart failure; R13.11 Dysphagia, oral phase; E05.90 Thyrotoxicosis, unspecified without thyrotoxic crisis or storm; J44.1 Chronic obstructive pulmonary disease with (acute) exacerbation; N28.1 Cyst of kidney, acquired; E11.65 Type 2 diabetes mellitus with hyperglycemia; Z68.20 Body mass index [BMI] 20.0-20.9, adult; Z79.82 Long term (current) use of aspirin; Z79.899 Other long term (current) drug therapy; I69.354 Hemiplegia and hemiparesis following cerebral infarction affecting left non-dominant side; Z93.1 Gastrostomy status
CPT/HCPCS: 36415; 36600; 71045; 76705; 80048; 80053; 80299; 80305; 81001; 82150; 82803; 82948; 83036; 83605; 83690; 83735; 83880; 84100; 84436; 84439; 84443; 84479; 84484; 85025; 85610; 85730; 87040; 87081; 87086; 87186; 92610; 93005; 96361; 96365; 96375; 97110; 97530; 99285; J1815; J1956; J2060; J3490; J7042; J7060; Q0092

== ENCOUNTER 2019-07-17 08:17 | Emergency (ER) | payer MEDICARE, MEDICAID ==
[~2019-07-17] VITALS: Ht 170.2 cm; Wt 62.1 kg
[2019-07-17 08:17] VITALS: BP 135/84
[~2019-07-17 08:17] MED LIST changes: -AMOX-999 PO; +CALC1CAP PO; +FER300L GT; -FERR-13 PO; +GLIP5TER GT; -GLIP5TER PO; -LACT10CA1 PO; +LAM200 PO; -LAM25 PO; -MULT-153 PO; +MULT-1868 PO; +ROC1PM IV; +SYN.05 PO; -TAP5 PO
--- NOTE | 2019-07-17 08:19 | NUR ---
PT BIBA TO BED 03.
--- NOTE | 2019-07-17 08:20 | NUR ---
XENIA from [facility] for evaluation s/p seizure. Pt has hx of seizures, per facility pt will come back to baseline 10-15 mins after seizure, today pt is taking longer to come out of seizure approximately 30 minutes. PT IS AWAKE AND FOLLOWS SIMPLE COMMANDS, PT SPEAKING BUT SPEECH IS SLURRED AND NON COMPREHENDABLE. PER EMS PT NORMALLY SPEAKS , WALKS AND HAS GCS 14. PUPILS PERRL. PT ON MONITOR WILL CONTINUE TO MONITOR. hx GERD, DM, dementia, seizure
[2019-07-17] MEDS ORDERED: LAM25 GT (08:28)
[2019-07-17] MEDS ORDERED: GLIP5TER GT (08:28)
[2019-07-17] MEDS ORDERED: MULT-1328 PO (08:28)
--- NOTE | 2019-07-17 08:54 | NUR ---
LAB AT BEDSIDE.
--- NOTE | 2019-07-17 09:12 | NUR ---
XRAY AT PT BEDSIDE
--- NOTE | 2019-07-17 09:22 | NUR ---
PT FOLLWS SIMPLE COMMANDS, YELLS/MOANS AT PAINFUL STIMULI AND SPEAKS BUT MOST SPEECH IS INCOMPREHENDABLE, VSS.
[2019-07-17 09:50] LABS: BASOPHILS # (AUTO) 0.1 K/uL (0.00-0.22); BASOPHILS % (AUTO) 0.8 % (0.0-2.0); EOSINOPHILS # (AUTO) 0.3 K/uL (0-0.4); EOSINOPHILS % (AUTO) 3.5 % (0.0-4.0); HEMATOCRIT 47.6 % (36-48); HEMOGLOBIN 15.1 g/dL (12.0-16.0); LYMPHOCYTES # (AUTO) 1.5 K/uL (2.5-16.5); LYMPHOCYTES % (AUTO) 18.4 % (20.5-51.1); MEAN CORPUSCULAR HEMOGLOBIN 28 pg (27-31); MEAN CORPUSCULAR HGB CONC 32 g/dL (33-37); MEAN CORPUSCULAR VOLUME 88.2 fL (80-94); MONOCYTES # (AUTO) 0.7 K/uL (0.8-1.0); NEUTROPHILS # (AUTO) 5.5 K/uL (1.8-7.7); NEUTROPHILS % (AUTO) 68.3 % (42.2-75.2); PLATELET COUNT (AUTO) 241 K/uL (140-450); RED CELL DISTRIBUTION WIDTH 14.4 % (11.6-13.7)
[2019-07-17 10:06] LABS: ANION GAP 13.5 (8-16); CARBON DIOXIDE 27.6 mmol/L (21-32); CHLORIDE 104 mmol/L (98-107); CREATININE 0.9 mg/dL (0.6-1.3); GFR ARICAN-AMERICAN 80 mL/min (>90); GLUCOSE 167 mg/dL (74-106); POTASSIUM 4.1 mmol/L (3.5-5.1); SODIUM SERUM 141 mmol/L (136-145); UREA NITROGEN, BLOOD 25 mg/dL (7-18)
[2019-07-17 10:07] LABS: ACETAMINOPHEN < 0.5 ug/ml (10-30); ALBUMIN 3.5 g/dL (3.4-5.0); ASPARTATE AMINOTRANSFERASE 25 U/L (15-37); SALICYLATE < 2.8 mg/dL (2.8-20.0); TOTAL BILIRUBIN 0.6 mg/dL (0.0-1.0)
--- NOTE | 2019-07-17 10:12 | NUR ---
PT RETURNED FROM CT SCAN VIA [facility].
--- NOTE | 2019-07-17 10:15 | NUR ---
STRAIGHT CATH PERFORMED USING 14FR CATH AND STERILE TECHNIQUE. IMMEDIATE RETURN OF APPROX 30 CC YELLOW CLEAR URINE, SAMPLE COLLECTED AND SENT TO LAB.
[2019-07-17 10:18] LABS: APPEARANCE,URINE CLEAR (CLEAR); BILIRUBIN,URINE NEGATIVE (NEGATIVE); BLOOD, URINE TRACE-I (NEGATIVE); COLOR,URINE YELLOW (YELLOW); LEUKOCYTE ESTERASE ,URINE NEGATIVE (NEGATIVE); NITRITE, URINE NEGATIVE (NEGATIVE); PH,URINE 5.5 (5.0-9.0); UGLUCOSE NEGATIVE (NEGATIVE)
[2019-07-17 10:30] LABS: RBC,URINE 0-5 /HPF (0-5); URINE AMORPHOUS URATE 2+ /HPF (None Seen)
[2019-07-17] MEDS ORDERED: NACL 0.9% 1,000 ML IV ONE (10:30)
--- NOTE | 2019-07-17 11:09 | NUR ---
Multiple attempts for IV insertion. Unable to obtain IV. Dr. Schafer made aware. US placed at bedside for Dr. Schafer to perform US guided IV insertion.
--- NOTE | 2019-07-17 12:20 | NUR ---
PT LAYING IN BED IN NO DISTRESS, VSS, IV FLUIDS INFUSING WELL.
--- NOTE | 2019-07-17 13:30 | NUR ---
PT LAYING IN BED, RR EVEN AND UNLABORED. PT AWAKE, AOX2 (NAME, SITUATION) BUT WITH IMPROVEMENT IN LOC. VSS. ALL NEEDS MET.
--- NOTE | 2019-07-17 13:48 | NUR ---
ETA FOR TRANSPORT BACK TO FACILITY AT 4PM.
--- NOTE | 2019-07-17 16:37 | NUR ---
Patient discharged with v/s stable. Written and verbal after care instructions given and explained. Patient verbalized understanding. [facility] with PT to assisted. All questions addressed prior to discharge. Advised to follow up with PMD.
[2019-07-17 16:38] VITALS: BP 145/81
== END 2019-07-17 16:37 ==
LOC: MED 08:17
DX: R56.9 Unspecified convulsions (principal); I50.9 Heart failure, unspecified; E11.9 Type 2 diabetes mellitus without complications; F03.90 Unspecified dementia, unspecified severity, without behavioral disturbance, psychotic disturbance, mood disturbance, and anxiety; J44.9 Chronic obstructive pulmonary disease, unspecified; K21.9 Gastro-esophageal reflux disease without esophagitis; Z86.73 Personal history of transient ischemic attack (TIA), and cerebral infarction without residual deficits; Z79.82 Long term (current) use of aspirin; Z79.84 Long term (current) use of oral hypoglycemic drugs; Z79.899 Other long term (current) drug therapy
CPT/HCPCS: 36415; 70450; 71045; 80053; 81001; 82140; 82948; 83605; 84484; 85025; 87040; 87086; 93005; 96360; 99284; C1758; G0480; J7030; Q0092

== ENCOUNTER 2019-10-09 23:51 | Inpatient (IN) | payer MEDICAID, MEDICARE ==
[~2019-10-09] VITALS: Ht 170.2 cm; Wt 68.0 kg
[~2019-10-09 23:51] MED LIST changes: -CALC1CAP PO; -INSU100S5 IJ; -LAM200 PO; +LAM25 GT; +MULT-1328 PO; -MULT-1868 PO; -ROC1PM IV; -SYN.05 PO
--- NOTE | 2019-10-09 23:51 | NUR ---
PT XENIA ALS. TAKEN TO BED 10
[2019-10-10 00:03] VITALS: BP 149/91
--- NOTE | 2019-10-10 00:15 | NUR ---
69 Y/O FEMALE BROUGHT IN BY BLS S/P TONIC CLONIC SEIZURE LASTING FOR ONE MINUTE. NO HEAD TRAUMA REPORTED PER [facility]. PT IS CURRENTLY IN POST-ICTAL PHASE. GCS 12. G-TUBE IN RIGHT ABD QUAD. RESPIRATION ARE EVEN AND UNLABORED. 2L SPO2:97%. HX: HEART FAILURE, EPILEPTIC, DEMENTIA, GERD.
[2019-10-10] MEDS ORDERED: LORazepam 2 MG/ML VIAL IVP ONE (00:35)
--- NOTE | 2019-10-10 00:46 | NUR ---
LABS COLLECTED AT BEDSIDE. STRAIGHT CATH PERFORMED TO OBTAIN URINE.
[2019-10-10 00:48] LABS: APPEARANCE,URINE CLOUDY (CLEAR); BILIRUBIN,URINE NEGATIVE (NEGATIVE); BLOOD, URINE TRACE-I (NEGATIVE); COLOR,URINE YELLOW (YELLOW); LEUKOCYTE ESTERASE ,URINE 2+ (NEGATIVE); NITRITE, URINE NEGATIVE (NEGATIVE); PH,URINE 6.5 (5.0-9.0); UGLUCOSE NEGATIVE (NEGATIVE)
[2019-10-10 01:01] LABS: RBC,URINE 0-5 /HPF (0-5); WBC,URINE 80-100 /HPF (0-5)
[2019-10-10] MEDS ORDERED: NACL 0.9% 1,000 ML IV ONE (01:05)
[2019-10-10] MEDS ORDERED: DOCUSATE SODIUM 100 MG GELCAP PO PRN (01:10)
[2019-10-10] MEDS ORDERED: ONDANSETRON 4 MG/2 ML VIAL IM/IVP PRN (01:10)
[2019-10-10] MEDS ORDERED: LORazepam 2 MG/ML VIAL IM/IVP PRN (01:10)
[2019-10-10] MEDS ORDERED: DEXTROSE 50% 50 ML SYR IVP PRN (01:10)
[2019-10-10] MEDS ORDERED: ACETAMINOPHEN 325 MG TAB PO PRN (01:10)
[2019-10-10] MEDS ORDERED: ALBUTEROL SULFATE/IPRATROPIU 3 ML SOL IH PRN (01:10)
[2019-10-10] MEDS ORDERED: INSULIN LISPRO SLIDING SCALE 100 UNITS/ML VIAL SUBQ PRN (01:10)
[2019-10-10 01:12] LABS: BASOPHILS # (AUTO) 0.1 K/uL (0.00-0.22); BASOPHILS % (AUTO) 0.7 % (0.0-2.0); EOSINOPHILS # (AUTO) 0.2 K/uL (0-0.4); HEMOGLOBIN 13.9 g/dL (12.0-16.0); LYMPHOCYTES # (AUTO) 2.5 K/uL (2.5-16.5); LYMPHOCYTES % (AUTO) 31.5 % (20.5-51.1); MEAN CORPUSCULAR HEMOGLOBIN 28 pg (27-31); MEAN CORPUSCULAR HGB CONC 32 g/dL (33-37); MEAN CORPUSCULAR VOLUME 87.8 fL (80-94); MONOCYTES # (AUTO) 0.8 K/uL (0.8-1.0); MONOCYTES % (AUTO) 10.3 % (1.7-9.3); NEUTROPHILS # (AUTO) 4.4 K/uL (1.8-7.7); NEUTROPHILS % (AUTO) 54.5 % (42.2-75.2); PLATELET COUNT (AUTO) 256 K/uL (140-450); RED BLOOD CELL COUNT(AUTO) 5.01 MIL/uL (4.20-5.40); RED CELL DISTRIBUTION WIDTH 14.5 % (11.6-13.7)
[2019-10-10 01:14] LABS: ANION GAP 15.3 (8-16); CARBON DIOXIDE 26.9 mmol/L (21-32); POTASSIUM 4.2 mmol/L (3.5-5.1)
[2019-10-10] MEDS ORDERED: LAM200 GT (01:22)
[2019-10-10] MEDS ORDERED: SYN.05 GT (01:22)
[2019-10-10] MEDS ORDERED: GLIP5TER GT (01:22)
--- NOTE | 2019-10-10 01:30 | NUR ---
RECEIVED REPORT FROM [facility]. ASSUMED CARE AT THIS TIME.
--- NOTE | 2019-10-10 01:34 | NUR ---
PT SEEN WITH EYES CLOSED. VISIBLE CHEST RISE AND FALL NOTED. PT O2 SAT MAINTAINING BETWEEN 88-92% ON RA. PT TOOK OFF NASAL CANNULA AND DOES NOT WANT TO KEEP IT ON. WILL CONTINUE TO MONITOR.
[2019-10-10 01:47] LABS: PROTHROMBIN TIME 10.1 secs (10.8-13.4)
--- NOTE | 2019-10-10 02:29 | NUR ---
O2 SATURATION MAINTAINED AT 95% ON RA. RESPIRATIONS EVEN AND UNLABORED. NO SEIZURES ACITIVITY WITHIN LAST HOUR NOTED. WILL CONTINUE TO MONITOR.
[2019-10-10] MEDS ORDERED: NACL 0.9% 1,500 ML IV ONE (03:00)
[2019-10-10] MEDS ORDERED: cefTRIAXone 1,000 MG VIAL ONE (03:05)
--- NOTE | 2019-10-10 03:40 | NUR ---
Patient will be admitted to care of DR. ORLANDO. Admited to [facility]. Will go to room 123B. Belongings list completed. Report to [facility]. TRANSFER OF CARE AT THIS TIME.
--- NOTE | 2019-10-10 03:42 | NUR ---
RECEIVED PT FROM ED VIA [facility] PT TELEMONITOR. PT AWAKE X 0, W/ DEMENTIA, G G TUBE IN PLACE ON THE LEFT SIDE OF ABDOMEN . WITH IV ON LEFT HAND G 22. INFUSING BOLUS NS, PATENT. NO RELATIVES W/ HER. PHYSICAL ASSESSMENT DONE. MRSA SWAB DONE. PLACED ON FALL RISK PRECAUTION. SEIZURE PRECAUTION. PLACED ON LOW BED. CALL LIGHT W/IN REACH
--- NOTE | 2019-10-10 03:49 | NUR ---
CANNOT SCAN BAR CODE OF NS IVF. CHARGE NURSE AWARE.
[2019-10-10 04:00] LABS: BILIRUBIN,DIRECT 0.1 mg/dL (0.0-0.3); TOTAL BILIRUBIN 0.3 mg/dL (0.0-1.0)
[2019-10-10 04:01] LABS: ALBUMIN 3.1 g/dL (3.4-5.0); PHOSPHORUS 3.2 mg/dL (2.5-4.9)
[2019-10-10] MEDS: NACL 0.9% 1,000 ML IV SCH (04:03)
[2019-10-10] MEDS: BLOOD GLUCOSE MONITORING 1 DEV DEV FS SCH ×4 (04:11→20:45)
[2019-10-10 05:14] LABS: MAGNESIUM 1.8 mg/dL (1.8-2.4); THYROID STIMULATING HORMONE 0.63 uIU/mL (0.34-3.74)
[2019-10-10 05:43] LABS: BASOPHILS % (AUTO) 0.5 % (0.0-2.0); EOSINOPHILS # (AUTO) 0.2 K/uL (0-0.4); EOSINOPHILS % (AUTO) 2.3 % (0.0-4.0); HEMATOCRIT 41.5 % (36-48); HEMOGLOBIN 12.9 g/dL (12.0-16.0); LYMPHOCYTES # (AUTO) 1.6 K/uL (2.5-16.5); LYMPHOCYTES % (AUTO) 20.4 % (20.5-51.1); MEAN CORPUSCULAR HEMOGLOBIN 27 pg (27-31); MEAN CORPUSCULAR HGB CONC 31 g/dL (33-37); MEAN CORPUSCULAR VOLUME 87.8 fL (80-94); NEUTROPHILS # (AUTO) 5.2 K/uL (1.8-7.7); NEUTROPHILS % (AUTO) 64.8 % (42.2-75.2); PLATELET COUNT (AUTO) 234 K/uL (140-450); RED BLOOD CELL COUNT(AUTO) 4.73 MIL/uL (4.20-5.40); RED CELL DISTRIBUTION WIDTH 14.3 % (11.6-13.7)
--- NOTE | 2019-10-10 05:58 | NUR ---
INFORMED ALCE OF DIETARY DIET (BOTH [facility] SOFT AND THE G TUBE FEEDING)
--- NOTE | 2019-10-10 05:58 | NUR ---
TALKED TO DR. DOWD; DIET OF PATIENT. DR. VALDERRAMA SAID SHE HAS A DUAL DIET, ONE G-TUBE FEEDING AND ANOTHER IS [facility] SOFT
--- NOTE | 2019-10-10 06:00 | NUR ---
STARTED G-TUBE FEEDING PER ORDERS, PT TOLERATING WELL.
[2019-10-10 06:14] LABS: POTASSIUM 4.3 mmol/L (3.5-5.1)
[2019-10-10 06:15] LABS: ANION GAP 12.2 (8-16); CARBON DIOXIDE 28.1 mmol/L (21-32)
[2019-10-10 06:16] LABS: CHOL/HDL RATIO 2.6 (1-4.5); PHOSPHORUS 3.5 mg/dL (2.5-4.9)
--- NOTE | 2019-10-10 07:24 | NUR ---
PT SLEEPING, NON AMBULATORY, ON G TUBE FEEDING, PT TOLERATING WELL, WILL ENDORSE TO NEXT SHIFT
--- NOTE | 2019-10-10 07:25 | NUR ---
RECEIVED BEDSIDE SHIFT REPORT FROM SEARCH ENGINEER NURSE FOR CONTINUATION OF CARE. PATIENT IS AAOX1, AWAKENS TO LIGHT SHAKING. NON-VERBAL AT THIS TIME. QUADRIPLEGIC, ON GTUBE FEEDING AT 40 ML/HR GLUCERNA 1.2 WITH 100 ML SALINE FLUSH Q6 HOURS. NS RUNNING THROUGH LEFT HAND AT 60 ML/HR. CALL LIGHT ON AND WITHIN REACH. WILL CONTINUE TO MONITOR.
[2019-10-10 08:00] VITALS: BP 154/86
[2019-10-10] MEDS ORDERED: lamoTRIgine 25 MG TAB GT SCH ×2 (09:00→21:00)
[2019-10-10] MEDS: LACTOBACILLUS RHAMNOSUS GG 1 EACH CAP PO SCH (09:17)
[2019-10-10] MEDS: glipiZIDE ER 5 MG TABER PO SCH (09:17)
[2019-10-10] MEDS: MULTIVITAMIN/MINERALS 1 TAB GT SCH (09:17)
[2019-10-10] MEDS: ASPIRIN 81 MG TAB.CHEW PO SCH (09:18)
[2019-10-10] MEDS: LEVOTHYROXINE 0.05 MG TAB GT SCH (09:18)
--- NOTE | 2019-10-10 10:00 | NUR ---
MEDICATIONS TOLERATED WELL PO, ONE MEDICATION ADMINISTERED AT A TIME PER HX OF DIFFICULTY SWALLOWING. PATIENT IS AAOX2/3. MUMBLED SPEECH, MISSING BOTTOM ROW OF TEETH. PATIENT IS RECEIVING GTUBE FEEDING GLUCERNA 1.2 AT 40 ML/HR. NO DISTRESS NOTED AT THIS TIME, SKIN IS INTACT. EDUCATED ON THE CALL LIGHT, VERBALIZED UNDERSTANDING. WILL CONTINUE TO MONITOR.
--- NOTE | 2019-10-10 10:08 | NUR ---
PATIENT HAS BEEN SCREENED AND CATEGORIZED HIGH NUTRITION RISK. PATIENT WILL BE SEEN WITHIN 1-2 DAYS OF ADMISSION. 10/10/19-10/11/[address]
[2019-10-10 12:00] VITALS: BP 145/78
--- NOTE | 2019-10-10 12:05 | NUR ---
PATIENT HAD A BLOOD SUGAR OF 56, PER PROTOCOL DEXTROSE 50% 50 ML WAS ADMINISTERED IV PUSH, TOLERATED WELL AND BLOOD SUGAR RECHECK 30 MINUTES LATER WAS 99. PATIENT IS ALERT, REMAINS CONFUSED AND ORIENTED TO SELF. TUBE FEED RUNNING AT 40 ML/HR. NO BM OF NOW. WILL CONTINUE TO MONITOR.
--- NOTE | 2019-10-10 14:05 | NUR ---
Bike Technician Note: Basic Screen: Yes High Risk DC Screen [employer]: GINGER NEGRO Home Relationship: CHILD Pre-Admission Living Arrangements: SNF Other: [facility] Prior ADL Total/Dependent Current Home Health Name/Tel: N/A Current DME/02 Name/Tel: [facility] Current Hospice Name/Tel: N/A Current Dialysis Name/Tel: N/A Healthcare Decision Maker: Next of Kin Other: GINGER NEGRO Advance Directive No Physician Orders for Life Sustaining Treatment Form No Patient/Family Have Educational Needs No Discipline: Case Mgt/Social Svcs Tentative Discharge Plan/Destination: SNF/ECF Will require assistance post discharge: No Referred to Paintings Restorer: No Tentative Discharge Plan Summary: Patient si a 69-year-old female admitted for UTI. Patient has PMHX of DM type 2, epilepsy, anemia, Alzheimer's dementia, HTN, quadriplegia, COPD, CHF, and osteoporosis. Patient was admitted from [facility]. SW contacted Brownell from [facility] [phone]. Per Brownell, patient is long term and on a bed hold. Per Brownell, patient is total dependent on ADLs. Tentative discharge plan for patient is to return to [facility]. No further needs identified. Signature: OSITO Penaloza Date: Oct 10, 2019 Time: 14:04
--- NOTE | 2019-10-10 14:40 | NUR ---
DC PLANN[age] YRS OLD PATIENT WAS ADMITTED FROM [facility] WITH A DX OF UTI AND SEIZURE. PT HAS A HX OF UTI , DM, ALZHEIMER , DEMENTIA UTI . PT IS BED BOUND HAS G-TUBE FOR FEEDING. LACTIC ACID 3.4 IV BOLUS GIVEN ,REPEAT LACTIC ACID PENDING URINE, AND BLOOD CULTURE PENDING IV ROCEPHIN STARTED , CONTINUE HOME MEDS SEIZURE PRECAUTION , NEURO CONSULT WITH DR ALAS . DC PLAN TO GO BACK TO [facility] WHEN STABLE. CM TO FOLLOW
--- NOTE | 2019-10-10 14:58 | NUR ---
BEDSIDE SHIFT REPORT GIVEN TO SHABNAM ALMAGUER FOR CONTINUATION OF CARE.
--- NOTE | 2019-10-10 14:59 | NUR ---
RECEIVED REPORT FROM DAY SHIFT NURSE EDWIN FOR CONTINUITY OF CARE. PT IN STABLE CONDITION. RESPIRATIONS EVEN AND UNLABORED, ROOM AIR. IV INTACT AND PATENT. SAFETY MEASURES IN PLACE. BED IN LOW POSITION. BED ALARM ON. CALL LIGHT AT BEDSIDE. WILL CONTINUE TO MONITOR.
--- NOTE | 2019-10-10 15:32 | NUR ---
10/10/19 RD INITIAL ASSESSMENT COMPLETED PLEASE REFER TO NUTRITION ASSESSMENT UNDER CARE ACTIVITY FOR ESTIMATED NUTRITIONAL NEEDS. 1. CONTINUE MECHANICAL SOFT CCHO 60 GM, GLUCERNA 1.2 @ 40 ML/HR DIET TOLERATED. -ENTERAL NUTRITION PROVIDES 960 ML IN VOLUME, 1152 KCALS, AND 58 GM OF PROTEIN. THIS MEETS 84% OF PTS CALORIES AND >100% OF PTS PROTEIN NEEDS. 2. CONTINUE FREE WATER FLUSH OF [address] TO FOLLOW-UP 2-3 DAYS, HIGH RISK ALEE SCHAEFFER RD
[2019-10-10 16:00] VITALS: BP 152/85
--- NOTE | 2019-10-10 16:02 | NUR ---
PT LYING IN BED IN STABLE CONDITION. BED IN LOW POSITION. BED ALARM ON. CALL LIGHT AT BEDSIDE. WILL CONTINUE TO MONITOR.
--- NOTE | 2019-10-10 17:49 | NUR ---
PT EATING DINNER IN STABLE CONDITION. BED IN LOW POSITION. BED ALARM ON. CALL LIGHT AT BEDSIDE. WILL CONTINUE TO MONITOR.
--- NOTE | 2019-10-10 19:15 | NUR ---
GAVE REPORT TO ENVIRONMENTAL ECONOMIST NURSE FOR CONTINUITY OF CARE. PT IN STABLE CONDITION.
--- NOTE | 2019-10-10 19:29 | NUR ---
RECEIVED BEDSIDE REPORT FROM DAY SHIFT NURSE. PATIENT IS AWAKE, RESPIRATION EVEN UNLABORED ON ROOM AIR. SKIN IS WARM AND DRY. IV PATENT AND INTACT. G-TUBE FEEDING NOTED. PLAN OF CARE WAS DISCUSSED AND UP TO DATE. ALL SAFETY MEASURES IN PLACE. BED IS AT LOW POSITION. CALL LIGHT WITHIN REACH. WILL CONTINUE TO MONITOR.
[2019-10-10 20:00] VITALS: BP 156/92
--- NOTE | 2019-10-10 20:05 | NUR ---
INITIAL ASSESSMENT DONE. VITALS WERE TAKEN. CHECKED G-TUBE RESIDUAL. OBTAINED 5CC. WILL CONTINUE TO MONITOR.
[2019-10-10] MEDS: lamoTRIgine 25 MG TAB GT SCH (20:33)
--- NOTE | 2019-10-10 20:35 | NUR ---
ALL SCHEDULED MEDS WERE GIVEN PER ORDER. NO ASE NOTED. WILL CONTINUE TO MONITOR.
--- NOTE | 2019-10-10 22:45 | NUR ---
CHECKED PATIENT. PATIENT SLEEPING RESPIRATION EVEN UNLABORED ON ROOM AIR. NO DISTRESS NOTED. WILL CONTINUE TO MONITOR.
[2019-10-11] VITALS: BP 136/85
--- NOTE | 2019-10-11 02:07 | NUR ---
CHECKED PATIENT.PATIENT SLEEPING RESPIRATION EVEN UNLABORED ON ROOM AIR. NO DISTRESS NOTED. WILL CONTINUE TO MONITOR.
[2019-10-11] MEDS: NACL 0.9% 1,000 ML IV SCH (03:50)
[2019-10-11 04:00] VITALS: BP 149/74
--- NOTE | 2019-10-11 04:00 | NUR ---
VITALS WERE TAKEN. PATIENT IN STABLE CONDITION. NO DISTRESS NOTED. WILL CONTINUE TO MONITOR.
[2019-10-11] MEDS: BLOOD GLUCOSE MONITORING 1 DEV DEV FS SCH ×2 (06:04→11:22)
--- NOTE | 2019-10-11 06:18 | NUR ---
VITALS WERE TAKEN. PATIENT IN STABLE CONDITION. NO DISTRESS NOTED. WILL CONTINUE TO MONITOR.
[2019-10-11 07:05] LABS: BASOPHILS # (AUTO) 0.1 K/uL (0.00-0.22); BASOPHILS % (AUTO) 0.9 % (0.0-2.0); EOSINOPHILS # (AUTO) 0.3 K/uL (0-0.4); EOSINOPHILS % (AUTO) 3.6 % (0.0-4.0); HEMATOCRIT 42.6 % (36-48); HEMOGLOBIN 13.4 g/dL (12.0-16.0); LYMPHOCYTES # (AUTO) 1.7 K/uL (2.5-16.5); LYMPHOCYTES % (AUTO) 24.1 % (20.5-51.1); MEAN CORPUSCULAR HEMOGLOBIN 27 pg (27-31); MEAN CORPUSCULAR HGB CONC 31 g/dL (33-37); MEAN CORPUSCULAR VOLUME 87.1 fL (80-94); MONOCYTES # (AUTO) 0.8 K/uL (0.8-1.0); MONOCYTES % (AUTO) 10.8 % (1.7-9.3); NEUTROPHILS # (AUTO) 4.4 K/uL (1.8-7.7); NEUTROPHILS % (AUTO) 60.6 % (42.2-75.2); PLATELET COUNT (AUTO) 256 K/uL (140-450); RED BLOOD CELL COUNT(AUTO) 4.89 MIL/uL (4.20-5.40); RED CELL DISTRIBUTION WIDTH 14.3 % (11.6-13.7); WHITE BLOOD COUNT (AUTO) 7.3 K/uL (4.8-10.8)
--- NOTE | 2019-10-11 07:07 | NUR ---
ENDORSED PATIENT TO DAY SHIFT NURSE. PATIENT IN STABLE CONDITION.
--- NOTE | 2019-10-11 07:10 | NUR ---
RECEIVED REPORT FROM NIGHT NURSE. PATIENT IS ASLEEP IN BED, AROUSABLE BY NAME OR TOUCH. RESPIRATION EVEN AND UNLABORED. IV INTACT AND PATENT TO LEFT WRIST. BED IN LOW POSITION. SAFETY MEASURES IN PLACE. CALL LIGHT WITHIN REACH. PLANS OF CARE DISCUSSED.
[2019-10-11 07:31] LABS: ANION GAP 12.1 (8-16); CARBON DIOXIDE 27.8 mmol/L (21-32); CREATININE 0.9 mg/dL (0.6-1.3); POTASSIUM 3.9 mmol/L (3.5-5.1)
[2019-10-11 07:52] LABS: PHOSPHORUS 3.8 mg/dL (2.5-4.9)
[2019-10-11 08:00] VITALS: BP 143/80
[2019-10-11] MEDS: lamoTRIgine 25 MG TAB GT SCH (08:31)
[2019-10-11] MEDS: LACTOBACILLUS RHAMNOSUS GG 1 EACH CAP PO SCH (08:32)
[2019-10-11] MEDS: LEVOTHYROXINE 0.05 MG TAB GT SCH (08:32)
[2019-10-11] MEDS: glipiZIDE ER 5 MG TABER PO SCH (08:34)
[2019-10-11] MEDS: ASPIRIN 81 MG TAB.CHEW PO SCH (08:35)
[2019-10-11] MEDS: MULTIVITAMIN/MINERALS 1 TAB GT SCH (08:37)
--- NOTE | 2019-10-11 09:00 | NUR ---
PATIENT IS EATING BREAKFAST. TOLERATED WELL. PATIENT AWAKE, ALERT, VERBALLY RESPONSIVE. NO S/S OF DISTRESS NOTED. GT INTACT AND PATENT, NO RESIDUAL NOTED. CALL LIGHT WITHIN REACH. SAFETY PRECAUTIONS IN PLACE.
--- NOTE | 2019-10-11 11:00 | NUR ---
PER DR. KNIGHT PATIENT IS TO BE TRANSFERRED BACK TO THE [facility] TODAY.
[2019-10-11] MEDS ORDERED: LAMO150T PO (11:14)
[2019-10-11] MEDS ORDERED: ROC1PM IV (11:14)
--- NOTE | 2019-10-11 11:21 | NUR ---
CALLED [facility] [phone] CONFIRMED PATIENT HAS BED AT THE FACILITY. CASSIE CONFIRMED BED. I INFORMED HER THAT WE WILL BE ARRANGING TRANSPORTATION AND THAT WE WILL CALL WITH REPORT AND INFORM ABOUT TRANSPORTATION TIME. CASSIE STATED THAT THE ACCEPTING RN WILL BE GUERO
--- NOTE | 2019-10-11 11:35 | NUR ---
BG CHECKED 116. NO COVERAGE NOTED.
--- NOTE | 2019-10-11 11:42 | NUR ---
CALLED [facility] [phone] THEY STATED THEY DO NOT ACCEPT MEDICARE PART B OR MEDICAL THE PATIENTS INSURANCE. CALLED [facility] [phone] TO ARRANGE TRANSPORTATION. THEY STATED THAT THE PATIENT IS NO A MEDICAL NECESSITY THEY CAN NOT AUTHORIZE THE DRY END TESTER. WILL CALL [facility] FOR DRY END TESTER
--- NOTE | 2019-10-11 11:49 | NUR ---
CALLED [facility] [phone] THEY STATED THE EARLIEST TIME THEY CAN TRANSPORT THE PATIENT IS AT 1900. CONFIRMED SCHEDULED TECHNOLOGY METHODOLOGY CONSULTANT WITH [facility]
[2019-10-11 12:00] VITALS: BP 153/85
[2019-10-11] MEDS ORDERED: LACT-81 PO (12:20)
--- NOTE | 2019-10-11 13:00 | NUR ---
PATIENT IS ALERT, AWAKE, REQUIRES REORIENTATION TO ENVIRONMENT. NO S/S OF DISTRESS NOTED. BED IN LOW POSITION. FALL PRECAUTIONS IN PLACE. BED ALARM ON. CALL LIGHT WITHIN REACH.
--- NOTE | 2019-10-11 15:45 | NUR ---
REPORT GIVEN TO TRIPP CROCKER FROM [facility]. PATIENT PICKED UP BY [facility] VIA [facility] 2 MANAGER RESEARCH AND DEVELOPMENT. ALL DISCHARGE PACKETS AND ALL BELONGINGS GIVEN WITH PATIENT. IV TO LEFT WRIST IN PLACE FOR PATIENT TO CONTINUE IV ANTIBIOTIC THERAPY ORDERED FOR CONTINUITY OF CARE TO [facility]. PATIENT IN STABLE CONDITION.
== END 2019-10-11 15:40 | DRG 53 ==
LOC: MED 23:51 → MTU 10-10 01:07
PROVIDERS: ADMIT Family Medicine; ATTEND Family Medicine
DX: G40.209 Localization-related (focal) (partial) symptomatic epilepsy and epileptic syndromes with complex partial seizures, not intractable, without status epilepticus (principal); G82.50 Quadriplegia, unspecified; E87.2 Acidosis; G40.409 Other generalized epilepsy and epileptic syndromes, not intractable, without status epilepticus; I50.9 Heart failure, unspecified; I11.0 Hypertensive heart disease with heart failure; I69.354 Hemiplegia and hemiparesis following cerebral infarction affecting left non-dominant side; N39.0 Urinary tract infection, site not specified; J44.9 Chronic obstructive pulmonary disease, unspecified; Z96.642 Presence of left artificial hip joint; G30.9 Alzheimer's disease, unspecified; F02.80 Dementia in other diseases classified elsewhere, unspecified severity, without behavioral disturbance, psychotic disturbance, mood disturbance, and anxiety; E03.9 Hypothyroidism, unspecified; M81.0 Age-related osteoporosis without current pathological fracture; E11.9 Type 2 diabetes mellitus without complications; K21.9 Gastro-esophageal reflux disease without esophagitis; Z79.899 Other long term (current) drug therapy; Z79.82 Long term (current) use of aspirin; Z87.440 Personal history of urinary (tract) infections; Z87.828 Personal history of other (healed) physical injury and trauma; Z93.1 Gastrostomy status
CPT/HCPCS: 36415; 71045; 80048; 80076; 80299; 81001; 82140; 82948; 83036; 83605; 83735; 83880; 84100; 84134; 84443; 85025; 85610; 85730; 87040; 87081; 87086; 87186; 93005; 96361; 96365; 96375; 99285; J0696; J1644; J1815; J2060; J7030; J7060; Q0092

== ENCOUNTER 2020-01-14 18:14 | Emergency (ER) | payer MEDICARE, MEDICAID ==
[~2020-01-14] VITALS: Ht 167.6 cm; Wt 49.9 kg
[~2020-01-14 18:14] MED LIST changes: -ASPI-1718 PO; +ASPI-1822 PO; -FER300L GT; +LACT-81 PO; -LAM25 GT; +LAMO150T PO; +ROC1PM IV; +SYN.05 GT
[2020-01-14 18:24] VITALS: BP 146/87
[2020-01-14 19:32] LABS: BASOPHILS # (AUTO) 0.1 K/uL (0.00-0.22); BASOPHILS % (AUTO) 0.8 % (0.0-2.0); EOSINOPHILS # (AUTO) 0.1 K/uL (0-0.4); EOSINOPHILS % (AUTO) 1.1 % (0.0-4.0); HEMATOCRIT 42.2 % (36-48); HEMOGLOBIN 13.4 g/dL (12.0-16.0); LYMPHOCYTES # (AUTO) 1.6 K/uL (2.5-16.5); LYMPHOCYTES % (AUTO) 13.5 % (20.5-51.1); MEAN CORPUSCULAR HEMOGLOBIN 28 pg (27-31); MEAN CORPUSCULAR HGB CONC 32 g/dL (33-37); MEAN CORPUSCULAR VOLUME 86.7 fL (80-94); MONOCYTES # (AUTO) 0.9 K/uL (0.8-1.0); MONOCYTES % (AUTO) 7.4 % (1.7-9.3); NEUTROPHILS # (AUTO) 8.9 K/uL (1.8-7.7); NEUTROPHILS % (AUTO) 77.2 % (42.2-75.2); PLATELET COUNT (AUTO) 310 K/uL (140-450); RED BLOOD CELL COUNT(AUTO) 4.87 MIL/uL (4.20-5.40); RED CELL DISTRIBUTION WIDTH 13.5 % (11.6-13.7); WHITE BLOOD COUNT (AUTO) 11.6 K/uL (4.8-10.8)
[2020-01-14 19:43] LABS: ALBUMIN 3.4 g/dL (3.4-5.0); ANION GAP 15.3 (8-16); ASPARTATE AMINOTRANSFERASE 22 U/L (15-37); CARBON DIOXIDE 25.6 mmol/L (21-32); CHLORIDE 105 mmol/L (98-107); GFR ARICAN-AMERICAN 71 mL/min (>90); GLUCOSE 174 mg/dL (74-106); POTASSIUM 3.9 mmol/L (3.5-5.1); SODIUM SERUM 142 mmol/L (136-145); TOTAL BILIRUBIN 0.5 mg/dL (0.0-1.0); UREA NITROGEN, BLOOD 24 mg/dL (7-18)
[2020-01-14 19:48] LABS: SALICYLATE < 2.8 mg/dL (2.8-20.0)
[2020-01-14 19:49] LABS: ACETAMINOPHEN < 0.5 ug/ml (10-30)
[2020-01-14 20:13] LABS: CKMB RELATIVE INDEX 0.2 (0.0-2.5); CREATINE KINASE MB 0.8 ng/mL (0-3.6)
[2020-01-14] MEDS ORDERED: NACL 0.9% 1,000 ML IV ONE (20:20)
[2020-01-14 21:07] LABS: BILIRUBIN,URINE NEGATIVE (NEGATIVE); BLOOD, URINE 3+ (NEGATIVE); LEUKOCYTE ESTERASE ,URINE 2+ (NEGATIVE); NITRITE, URINE NEGATIVE (NEGATIVE); UGLUCOSE NEGATIVE (NEGATIVE)
[2020-01-14 21:13] LABS: APPEARANCE,URINE CLOUDY (CLEAR); COLOR,URINE YELLOW (YELLOW)
[2020-01-14 21:22] LABS: RBC,URINE 20-50 /HPF (0-5); WBC,URINE TOO MANY TO COUNT /HPF (0-5)
[2020-01-14] MEDS ORDERED: cefTRIAXone 1,000 MG VIAL ONE (21:29)
[2020-01-14 22:26] LABS: BARBITURATE, URINE NEGATIVE ng/ml (NEG <=200); BENZODIAZEPINE, URINE NEGATIVE ng/mL (NEG <=200); CANNABINOID, URINE NEGATIVE ng/mL (NEG <=50); COCAINE, URINE NEGATIVE ng/mL (NEG <=300); OPIATE, URINE NEGATIVE ng/mL (NEG <=2000); PHENCYCLIDINE SCREEN,URINE NEGATIVE ng/mL (NEG <=25)
[2020-01-15 00:36] VITALS: BP 116/72
== END 2020-01-15 00:36 | disposition home or self-care (01) ==
LOC: MED 18:14
DX: N39.0 Urinary tract infection, site not specified (principal); E11.9 Type 2 diabetes mellitus without complications; F03.91 Unspecified dementia, unspecified severity, with behavioral disturbance; I50.9 Heart failure, unspecified; J44.9 Chronic obstructive pulmonary disease, unspecified; K21.9 Gastro-esophageal reflux disease without esophagitis; R56.9 Unspecified convulsions; Z79.899 Other long term (current) drug therapy
CPT/HCPCS: 36415; 70450; 71045; 80053; 80305; 81001; 82550; 82553; 83605; 84484; 85025; 87040; 87086; 93005; 96361; 96365; 99285; G0480; G0482; J0696; J7030; Q0092

== ENCOUNTER 2020-01-15 22:20 | Inpatient (IN) | payer MEDICAID, MEDICARE, SELFPAY ==
[~2020-01-15] VITALS: Ht 170.2 cm; Wt 59.0 kg
[2020-01-15] MEDS ORDERED: NACL 0.9% 1,000 ML IV ONE (22:22)
[2020-01-15 22:24] VITALS: BP 159/99
[2020-01-15 23:18] LABS: BASOPHILS # (AUTO) 0.1 K/uL (0.00-0.22); BASOPHILS % (AUTO) 0.8 % (0.0-2.0); EOSINOPHILS # (AUTO) 0.1 K/uL (0-0.4); EOSINOPHILS % (AUTO) 0.5 % (0.0-4.0); HEMATOCRIT 44.9 % (36-48); HEMOGLOBIN 14.4 g/dL (12.0-16.0); LYMPHOCYTES # (AUTO) 1.2 K/uL (2.5-16.5); LYMPHOCYTES % (AUTO) 8.9 % (20.5-51.1); MEAN CORPUSCULAR HEMOGLOBIN 28 pg (27-31); MEAN CORPUSCULAR HGB CONC 32 g/dL (33-37); MEAN CORPUSCULAR VOLUME 86.6 fL (80-94); MONOCYTES # (AUTO) 0.6 K/uL (0.8-1.0); MONOCYTES % (AUTO) 4.9 % (1.7-9.3); NEUTROPHILS # (AUTO) 11.1 K/uL (1.8-7.7); NEUTROPHILS % (AUTO) 84.9 % (42.2-75.2); PLATELET COUNT (AUTO) 281 K/uL (140-450); RED BLOOD CELL COUNT(AUTO) 5.19 MIL/uL (4.20-5.40); RED CELL DISTRIBUTION WIDTH 13.5 % (11.6-13.7); WHITE BLOOD COUNT (AUTO) 13.1 K/uL (4.8-10.8)
[2020-01-15 23:24] LABS: APPEARANCE,URINE CLOUDY (CLEAR); BILIRUBIN,URINE NEGATIVE (NEGATIVE); BLOOD, URINE 3+ (NEGATIVE); COLOR,URINE YELLOW (YELLOW); LEUKOCYTE ESTERASE ,URINE 1+ (NEGATIVE); NITRITE, URINE NEGATIVE (NEGATIVE); UGLUCOSE NEGATIVE (NEGATIVE)
[2020-01-15 23:34] LABS: ALBUMIN 3.6 g/dL (3.4-5.0); ANION GAP 15.9 (8-16); CARBON DIOXIDE 24.7 mmol/L (21-32); CREATININE 1.1 mg/dL (0.6-1.3); POTASSIUM 3.6 mmol/L (3.5-5.1); TOTAL BILIRUBIN 0.9 mg/dL (0.0-1.0)
[2020-01-16] MEDS ORDERED: NACL 0.9% 1,000 ML IV ONE (00:10)
[2020-01-16] MEDS ORDERED: ACETAMINOPHEN 650 MG/20.3 ML UDC GT ONE (00:10)
[2020-01-16] MEDS ORDERED: ACETAMINOPHEN 650 MG/20.3 ML UDC ONE (00:15)
[2020-01-16 00:41] LABS: RBC,URINE TOO NUMEROUS TO COUN /HPF (0-5); WBC,URINE TOO MANY TO COUNT /HPF (0-5)
[2020-01-16] MEDS ORDERED: ACETAMINOPHEN 325 MG TAB PO PRN (01:05)
[2020-01-16] MEDS ORDERED: ONDANSETRON 4 MG/2 ML VIAL IVP PRN (01:05)
[2020-01-16] MEDS ORDERED: HYDROcodone/APAP 7.5/325 MG 1 TAB PO PRN (01:05)
[2020-01-16] MEDS ORDERED: cefTRIAXone 1,000 MG VIAL ONE (01:33)
[2020-01-16 02:12] VITALS: BP 133/79
[2020-01-16] MEDS ORDERED: LORazepam 2 MG/ML VIAL IM/IVP PRN (02:30)
[2020-01-16] MEDS ORDERED: DEXTROSE 50% 50 ML SYR IVP PRN (02:30)
[2020-01-16] MEDS ORDERED: ALBUTEROL SULFATE/IPRATROPIU 3 ML SOL IH PRN (02:30)
[2020-01-16] MEDS: NACL 0.9% 1,000 ML IV SCH ×3 (02:56→21:01)
[2020-01-16 02:59] LABS: CHOL/HDL RATIO 2.3 (1-4.5); MAGNESIUM 1.8 mg/dL (1.8-2.4); PHOSPHORUS 2.4 mg/dL (2.5-4.9); THYROID STIMULATING HORMONE 1.18 uIU/mL (0.34-3.74)
[2020-01-16] MEDS: BLOOD GLUCOSE MONITORING 1 DEV DEV FS SCH ×4 (05:51→20:38)
[2020-01-16] MEDS: INSULIN LISPRO SLIDING SCALE 100 UNITS/ML VIAL SUBQ PRN (05:51)
[2020-01-16 07:15] LABS: BASOPHILS # (AUTO) 0.1 K/uL (0.00-0.22); BASOPHILS % (AUTO) 0.6 % (0.0-2.0); EOSINOPHILS % (AUTO) 0.2 % (0.0-4.0); HEMOGLOBIN 13.1 g/dL (12.0-16.0); LYMPHOCYTES # (AUTO) 0.9 K/uL (2.5-16.5); LYMPHOCYTES % (AUTO) 8.6 % (20.5-51.1); MEAN CORPUSCULAR HEMOGLOBIN 28 pg (27-31); MEAN CORPUSCULAR HGB CONC 32 g/dL (33-37); MEAN CORPUSCULAR VOLUME 87.2 fL (80-94); MONOCYTES # (AUTO) 0.7 K/uL (0.8-1.0); MONOCYTES % (AUTO) 7.5 % (1.7-9.3); NEUTROPHILS # (AUTO) 8.3 K/uL (1.8-7.7); NEUTROPHILS % (AUTO) 83.1 % (42.2-75.2); PLATELET COUNT (AUTO) 267 K/uL (140-450); RED CELL DISTRIBUTION WIDTH 13.8 % (11.6-13.7)
[2020-01-16 07:33] LABS: ANION GAP 17.4 (8-16); CARBON DIOXIDE 23.1 mmol/L (21-32); POTASSIUM 3.5 mmol/L (3.5-5.1)
[2020-01-16 07:55] LABS: MAGNESIUM 1.5 mg/dL (1.8-2.4); PHOSPHORUS 2.1 mg/dL (2.5-4.9)
[2020-01-16 08:00] VITALS: BP 149/78
[2020-01-16] MEDS ORDERED: LAMOTRIGINE PO SCH (09:00)
[2020-01-16] MEDS ORDERED: glipiZIDE ER 5 MG TABER PO SCH (09:00)
[2020-01-16] MEDS: FAMOTIDINE 20 MG TAB PO SCH (09:11)
[2020-01-16] MEDS: LEVOTHYROXINE 0.025 MG TAB GT SCH (09:11)
[2020-01-16] MEDS: ASCORBIC ACID 500 MG TAB PO SCH (09:11)
[2020-01-16] MEDS: ASPIRIN 81 MG TAB.CHEW PO SCH (09:11)
[2020-01-16] MEDS: ZINC SULF 220 MG CAP PO SCH (09:11)
[2020-01-16] MEDS: glipiZIDE 5 MG TAB PO SCH (09:12)
[2020-01-16] MEDS: DOCUSATE SODIUM 100 MG GELCAP PO SCH ×2 (09:20→20:38)
[2020-01-16] MEDS ORDERED: SODIUM PHOS / POTASSIUM PHOS 1 PKT PDR PO SCH (11:00)
[2020-01-16] MEDS ORDERED: MAG SULF 2000 MG/WATER PREMIX 100 ML IV SCH (11:00)
[2020-01-16] MEDS: ERTAPENEM SODIUM 1,000 MG in NACL 0.9% 50 ML IV SCH (11:43)
[2020-01-16 12:00] VITALS: BP 117/59
[2020-01-16 16:00] VITALS: BP 104/59
[2020-01-16 20:00] VITALS: BP 115/73
[2020-01-17] VITALS: BP 122/65
[2020-01-17 04:00] VITALS: BP 109/59
[2020-01-17] MEDS ORDERED: ALBUTEROL HFA MDI 90 MCG/ACTUATION 8 GM INH PRN (05:50)
[2020-01-17] MEDS: NACL 0.9% 1,000 ML IV SCH ×2 (06:31→17:01)
[2020-01-17] MEDS: BLOOD GLUCOSE MONITORING 1 DEV DEV FS SCH ×4 (06:31→21:00)
[2020-01-17 07:40] LABS: BASOPHILS # (AUTO) 0.1 K/uL (0.00-0.22); BASOPHILS % (AUTO) 0.9 % (0.0-2.0); EOSINOPHILS # (AUTO) 0.2 K/uL (0-0.4); EOSINOPHILS % (AUTO) 3.4 % (0.0-4.0); HEMATOCRIT 33.1 % (36-48); HEMOGLOBIN 10.5 g/dL (12.0-16.0); LYMPHOCYTES # (AUTO) 1.7 K/uL (2.5-16.5); LYMPHOCYTES % (AUTO) 26.4 % (20.5-51.1); MEAN CORPUSCULAR HEMOGLOBIN 28 pg (27-31); MEAN CORPUSCULAR HGB CONC 32 g/dL (33-37); MEAN CORPUSCULAR VOLUME 87.7 fL (80-94); MONOCYTES # (AUTO) 0.6 K/uL (0.8-1.0); MONOCYTES % (AUTO) 9.4 % (1.7-9.3); NEUTROPHILS % (AUTO) 59.9 % (42.2-75.2); PLATELET COUNT (AUTO) 211 K/uL (140-450); RED BLOOD CELL COUNT(AUTO) 3.77 MIL/uL (4.20-5.40); RED CELL DISTRIBUTION WIDTH 13.6 % (11.6-13.7); WHITE BLOOD COUNT (AUTO) 6.6 K/uL (4.8-10.8)
[2020-01-17 08:00] VITALS: BP 118/62
[2020-01-17 08:04] LABS: ALBUMIN 2.3 g/dL (3.4-5.0); CARBON DIOXIDE 23.9 mmol/L (21-32); CREATININE 0.9 mg/dL (0.6-1.3); MAGNESIUM 2.1 mg/dL (1.8-2.4); PHOSPHORUS 1.8 mg/dL (2.5-4.9); TOTAL BILIRUBIN 0.4 mg/dL (0.0-1.0)
[2020-01-17 08:54] LABS: POTASSIUM 2.9 mmol/L (3.5-5.1)
[2020-01-17] MEDS: ASCORBIC ACID 500 MG TAB PO SCH (09:06)
[2020-01-17] MEDS: LEVOTHYROXINE 0.025 MG TAB GT SCH (09:06)
[2020-01-17] MEDS: glipiZIDE 5 MG TAB PO SCH (09:07)
[2020-01-17] MEDS: ASPIRIN 81 MG TAB.CHEW PO SCH (09:07)
[2020-01-17] MEDS: FAMOTIDINE 20 MG TAB PO SCH (09:07)
[2020-01-17] MEDS: DOCUSATE SODIUM 100 MG GELCAP PO SCH ×2 (09:07→21:24)
[2020-01-17] MEDS: ZINC SULF 220 MG CAP PO SCH (09:07)
[2020-01-17 09:15] LABS: CKMB RELATIVE INDEX 0.5 (0.0-2.5); CREATINE KINASE MB 1.5 ng/mL (0-3.6)
[2020-01-17] MEDS ORDERED: POTASSIUM CHLORIDE 10 MEQ TABER PO SCH (09:15)
[2020-01-17] MEDS ORDERED: POTASSIUM CHLORIDE 40 MEQ, LIDOCAINE MPF 1% 25 MG in NACL 0.9% 250 ML IV SCH (09:30)
[2020-01-17 12:00] VITALS: BP 126/74
[2020-01-17] MEDS: ERTAPENEM SODIUM 1,000 MG in NACL 0.9% 50 ML IV SCH (13:37)
[2020-01-17] MEDS ORDERED: POTASSIUM PHOSPHATE 15 MM in NACL 0.9% 250 ML IV SCH (14:30)
[2020-01-17] MEDS: MUPIROCIN CA NASAL 2% 1GM TUBE NS SCH (15:41)
[2020-01-17] MEDS: CHLORHEXADINE GLUC 2% CLOTH TP SCH (15:41)
[2020-01-17 16:00] VITALS: BP 131/69
[2020-01-17 20:00] VITALS: BP 143/73
[2020-01-18] VITALS: BP 151/75
[2020-01-18] MEDS: NACL 0.9% 1,000 ML IV SCH ×3 (03:01→13:01)
[2020-01-18 04:00] VITALS: BP 153/86
[2020-01-18] MEDS: BLOOD GLUCOSE MONITORING 1 DEV DEV FS SCH ×4 (06:43→21:30)
[2020-01-18] MEDS: INSULIN LISPRO SLIDING SCALE 100 UNITS/ML VIAL SUBQ PRN ×2 (06:45→21:14)
[2020-01-18 08:00] VITALS: BP 122/72
[2020-01-18] MEDS: FAMOTIDINE 20 MG TAB PO SCH (08:40)
[2020-01-18] MEDS: glipiZIDE 5 MG TAB PO SCH (08:41)
[2020-01-18] MEDS: ASCORBIC ACID 500 MG TAB PO SCH (08:41)
[2020-01-18] MEDS: ASPIRIN 81 MG TAB.CHEW PO SCH (08:41)
[2020-01-18] MEDS: ZINC SULF 220 MG CAP PO SCH (08:42)
[2020-01-18] MEDS: DOCUSATE SODIUM 100 MG GELCAP PO SCH ×2 (08:42→21:32)
[2020-01-18] MEDS: LEVOTHYROXINE 0.025 MG TAB GT SCH (08:42)
[2020-01-18 11:21] LABS: BASOPHILS % (AUTO) 0.4 % (0.0-2.0); EOSINOPHILS # (AUTO) 0.2 K/uL (0-0.4); EOSINOPHILS % (AUTO) 2.7 % (0.0-4.0); HEMATOCRIT 36.8 % (36-48); HEMOGLOBIN 11.8 g/dL (12.0-16.0); LYMPHOCYTES # (AUTO) 1.2 K/uL (2.5-16.5); MEAN CORPUSCULAR HEMOGLOBIN 28 pg (27-31); MEAN CORPUSCULAR HGB CONC 32 g/dL (33-37); MONOCYTES # (AUTO) 0.8 K/uL (0.8-1.0); MONOCYTES % (AUTO) 8.4 % (1.7-9.3); NEUTROPHILS % (AUTO) 75.5 % (42.2-75.2); PLATELET COUNT (AUTO) 264 K/uL (140-450); RED BLOOD CELL COUNT(AUTO) 4.28 MIL/uL (4.20-5.40); RED CELL DISTRIBUTION WIDTH 13.4 % (11.6-13.7); WHITE BLOOD COUNT (AUTO) 9.3 K/uL (4.8-10.8)
[2020-01-18 11:33] LABS: ANION GAP 11.3 (8-16); CARBON DIOXIDE 30.2 mmol/L (21-32); CREATININE 0.8 mg/dL (0.6-1.3); POTASSIUM 3.5 mmol/L (3.5-5.1)
[2020-01-18 11:37] LABS: MAGNESIUM 1.7 mg/dL (1.8-2.4); PHOSPHORUS 1.7 mg/dL (2.5-4.9)
[2020-01-18] MEDS: ERTAPENEM SODIUM 1,000 MG in NACL 0.9% 50 ML IV SCH (11:37)
[2020-01-18 12:00] VITALS: BP 142/76
[2020-01-18] MEDS ORDERED: MAGNESIUM OXIDE 400 MG TAB PO SCH (12:15)
[2020-01-18] MEDS ORDERED: POTASSIUM PHOSPHATE 15 MM in NACL 0.9% 250 ML IV SCH ×2 (13:00→15:30)
[2020-01-18] MEDS: CHLORHEXADINE GLUC 2% CLOTH TP SCH (15:23)
[2020-01-18] MEDS: MUPIROCIN CA NASAL 2% 1GM TUBE NS SCH (15:23)
[2020-01-18 16:00] VITALS: BP 139/81
[2020-01-18 20:00] VITALS: BP 173/95
[2020-01-18] MEDS ORDERED: CRUSHER, PILL MC ONE (21:09)
[2020-01-18] MEDS ORDERED: hydrALAZINE 20 MG/ML VIAL IVP ONE (21:20)
[2020-01-19] VITALS: BP 158/89
[2020-01-19 04:00] VITALS: BP 166/90
[2020-01-19] MEDS: INSULIN LISPRO SLIDING SCALE 100 UNITS/ML VIAL SUBQ PRN (06:58)
[2020-01-19] MEDS: BLOOD GLUCOSE MONITORING 1 DEV DEV FS SCH ×3 (07:01→16:26)
[2020-01-19 07:24] LABS: BASOPHILS # (AUTO) 0.1 K/uL (0.00-0.22); BASOPHILS % (AUTO) 1.4 % (0.0-2.0); EOSINOPHILS # (AUTO) 0.3 K/uL (0-0.4); EOSINOPHILS % (AUTO) 2.6 % (0.0-4.0); HEMATOCRIT 42.7 % (36-48); HEMOGLOBIN 13.7 g/dL (12.0-16.0); LYMPHOCYTES # (AUTO) 1.7 K/uL (2.5-16.5); LYMPHOCYTES % (AUTO) 17.2 % (20.5-51.1); MEAN CORPUSCULAR HEMOGLOBIN 28 pg (27-31); MEAN CORPUSCULAR HGB CONC 32 g/dL (33-37); MEAN CORPUSCULAR VOLUME 87.2 fL (80-94); MONOCYTES # (AUTO) 0.7 K/uL (0.8-1.0); MONOCYTES % (AUTO) 6.7 % (1.7-9.3); NEUTROPHILS % (AUTO) 72.1 % (42.2-75.2); PLATELET COUNT (AUTO) 309 K/uL (140-450); RED CELL DISTRIBUTION WIDTH 13.5 % (11.6-13.7); WHITE BLOOD COUNT (AUTO) 9.7 K/uL (4.8-10.8)
[2020-01-19 07:35] LABS: ANION GAP 12.1 (8-16); CARBON DIOXIDE 32.5 mmol/L (21-32); CREATININE 0.8 mg/dL (0.6-1.3); POTASSIUM 3.6 mmol/L (3.5-5.1)
[2020-01-19 07:38] LABS: MAGNESIUM 1.8 mg/dL (1.8-2.4); PHOSPHORUS 2.7 mg/dL (2.5-4.9)
[2020-01-19 08:00] VITALS: BP 159/94
[2020-01-19] MEDS ORDERED: LAMO200T7 PO (08:15)
[2020-01-19] MEDS ORDERED: MUPI2CRE22 NS (08:20)
[2020-01-19] MEDS ORDERED: CHLO118S2 TP (08:20)
[2020-01-19] MEDS ORDERED: INV1I IV (08:22)
[2020-01-19] MEDS ORDERED: LACT10CA1 GT (08:23)
[2020-01-19] MEDS: ASCORBIC ACID 500 MG TAB PO SCH (09:13)
[2020-01-19] MEDS: ASPIRIN 81 MG TAB.CHEW PO SCH (09:14)
[2020-01-19] MEDS: LEVOTHYROXINE 0.025 MG TAB GT SCH (09:14)
[2020-01-19] MEDS: DOCUSATE SODIUM 100 MG GELCAP PO SCH (09:14)
[2020-01-19] MEDS: FAMOTIDINE 20 MG TAB PO SCH (09:15)
[2020-01-19] MEDS: glipiZIDE 5 MG TAB PO SCH (09:15)
[2020-01-19] MEDS: ZINC SULF 220 MG CAP PO SCH (09:15)
[2020-01-19] MEDS: NACL 0.9% 1,000 ML IV SCH (09:47)
[2020-01-19] MEDS: ERTAPENEM SODIUM 1,000 MG in NACL 0.9% 50 ML IV SCH (11:13)
[2020-01-19 12:00] VITALS: BP 169/99
[2020-01-19] MEDS ORDERED: amLODIPine 5 MG TAB PO SCH (13:00)
[2020-01-19] MEDS ORDERED: POTASSIUM CHLORIDE 20% 40 MEQ/15 ML UDC GT SCH (13:30)
[2020-01-19] MEDS ORDERED: POTASSIUM CHLORIDE 20 MEQ, LIDOCAINE MPF 1% 25 MG in NACL 0.9% 250 ML IV ONE (13:30)
[2020-01-19] MEDS: MUPIROCIN CA NASAL 2% 1GM TUBE NS SCH (15:45)
[2020-01-19] MEDS: CHLORHEXADINE GLUC 2% CLOTH TP SCH (15:59)
[2020-01-19 16:00] VITALS: BP 142/70
[2020-01-20] MEDS ORDERED: amLODIPine 5 MG TAB PO SCH ×2 (09:00)
== END 2020-01-19 19:10 | DRG 720 ==
LOC: MED 22:20 → EEVIPCON 01-16 01:07 → MTU 01-16 01:07
PROVIDERS: ADMIT Family Medicine; ATTEND Family Medicine
DX: A41.9 Sepsis, unspecified organism (principal); E43 Unspecified severe protein-calorie malnutrition; G82.50 Quadriplegia, unspecified; D68.69 Other thrombophilia; E11.69 Type 2 diabetes mellitus with other specified complication; R56.9 Unspecified convulsions; I11.0 Hypertensive heart disease with heart failure; I50.9 Heart failure, unspecified; E83.39 Other disorders of phosphorus metabolism; G30.9 Alzheimer's disease, unspecified; E83.42 Hypomagnesemia; F02.80 Dementia in other diseases classified elsewhere, unspecified severity, without behavioral disturbance, psychotic disturbance, mood disturbance, and anxiety; N39.0 Urinary tract infection, site not specified; B96.20 Unspecified Escherichia coli [E. coli] as the cause of diseases classified elsewhere; E11.9 Type 2 diabetes mellitus without complications; E03.9 Hypothyroidism, unspecified; Z68.20 Body mass index [BMI] 20.0-20.9, adult; J44.9 Chronic obstructive pulmonary disease, unspecified; K21.9 Gastro-esophageal reflux disease without esophagitis; M81.0 Age-related osteoporosis without current pathological fracture; Z86.73 Personal history of transient ischemic attack (TIA), and cerebral infarction without residual deficits; Z96.643 Presence of artificial hip joint, bilateral; B96.4 Proteus (mirabilis) (morganii) as the cause of diseases classified elsewhere; Z20.828 Contact with and (suspected) exposure to other viral communicable diseases
CPT/HCPCS: 36415; 70450; 71045; 80048; 80053; 80299; 80305; 81001; 82550; 82553; 82948; 83036; 83605; 83615; 83690; 83735; 83880; 84100; 84443; 84484; 85025; 85379; 85610; 85651; 86140; 87040; 87081; 87086; 93005; 96360; 96361; 96365; 99285; 99291; G0480; G0482; J0360; J0696; J1335; J1644; J2001; J2060; J3475; J3480; J7030; J7060; Q0092

== ENCOUNTER 2020-02-28 18:15 | Inpatient (IN) | payer MEDICAID, MEDICARE, SELFPAY ==
[~2020-02-28] VITALS: Ht 167.6 cm; Wt 64.9 kg
[2020-02-28 18:15] VITALS: BP 100/64
[~2020-02-28 18:15] MED LIST changes: +APIX2.5 PO; -ASPI-1822 PO; +DEC4 PO; +INV1I IV; -LACT-81 PO; +LACT10CA1 GT; -LAMO150T PO; +LAMO200T7 PO; +MULT-1328 GT; -MULT-1328 PO; -ROC1PM IV; +ROC2I IV
--- NOTE | 2020-02-28 18:15 | NUR ---
Patient XENIA ALS from [facility], transferred to bed 1. RN evaluating patient at bedside.
[2020-02-28] MEDS ORDERED: APIX2.5 GT (18:25)
[2020-02-28] MEDS ORDERED: ZINC220C28 GT (18:25)
[2020-02-28] MEDS ORDERED: SYN.05 GT (18:25)
[2020-02-28] MEDS ORDERED: ASPI-1822 GT (18:25)
[2020-02-28] MEDS ORDERED: ROC1PM IV (18:25)
[2020-02-28] MEDS ORDERED: ASCO500T45 GT (18:25)
[2020-02-28] MEDS ORDERED: CHOL40003 GT (18:25)
[2020-02-28] MEDS ORDERED: BACTO TOP (18:25)
[2020-02-28] MEDS ORDERED: DEC4 GT (18:25)
--- NOTE | 2020-02-28 18:52 | NUR ---
69 Y/O F C/C ALTERED MENTAL STATUS/SEIZURES X 25 MINS PER EMS. [facility] PER EMS VIVIANE PT CODE 3 DUE TO STATUS, ON NON REBREATHER 15LPM, AND GIVEN VERSED. PT IS POSITIVE COVID CONFIRMED ON SUNDAY. PT PRESENTS TACHYPNIC 24RR, TACHYCARDIC 106HR AND NON-VERBAL. PT ON ROOM AIR IN ER 93%; PLACED ON NASAL CANNULA 96%. PICC LINE ON RIGHT UPPER CHEST AREA AND GTUBE. PT A/OX0. PT PLACED ON SEIZURE PRECAUTIONS, FULL FOWLERS, AND 3L NC. SIDE RAIL X2. ALLERGIES,HX,RX --- SEE CHART.
--- NOTE | 2020-02-28 19:08 | NUR ---
REPORT GIVEN TO VARGAS ALMAGUER FOR CONTINUITY OF CARE
[2020-02-28 19:09] LABS: APPEARANCE,URINE CLEAR (CLEAR); BILIRUBIN,URINE NEGATIVE (NEGATIVE); BLOOD, URINE TRACE-I (NEGATIVE); COLOR,URINE YELLOW (YELLOW); LEUKOCYTE ESTERASE ,URINE NEGATIVE (NEGATIVE); NITRITE, URINE NEGATIVE (NEGATIVE); UGLUCOSE 1+ (NEGATIVE)
[2020-02-28 19:11] LABS: BASOPHILS # (AUTO) 0.1 K/uL (0.00-0.22); BASOPHILS % (AUTO) 1.8 % (0.0-2.0); HEMATOCRIT 33.2 % (36-48); HEMOGLOBIN 10.4 g/dL (12.0-16.0); LYMPHOCYTES # (AUTO) 0.3 K/uL (2.5-16.5); LYMPHOCYTES % (AUTO) 7.4 % (20.5-51.1); MEAN CORPUSCULAR HEMOGLOBIN 28 pg (27-31); MEAN CORPUSCULAR HGB CONC 31 g/dL (33-37); MEAN CORPUSCULAR VOLUME 88.5 fL (80-94); MONOCYTES # (AUTO) 0.4 K/uL (0.8-1.0); MONOCYTES % (AUTO) 11.3 % (1.7-9.3); NEUTROPHILS # (AUTO) 2.8 K/uL (1.8-7.7); NEUTROPHILS % (AUTO) 79.5 % (42.2-75.2); PLATELET COUNT (AUTO) 228 K/uL (140-450); RED BLOOD CELL COUNT(AUTO) 3.76 MIL/uL (4.20-5.40); RED CELL DISTRIBUTION WIDTH 14.3 % (11.6-13.7); WHITE BLOOD COUNT (AUTO) 3.6 K/uL (4.8-10.8)
[2020-02-28] MEDS ORDERED: NACL 0.9% 2,000 ML IV ONE (19:25)
[2020-02-28 19:28] LABS: PROTHROMBIN TIME 11.5 secs (10.8-13.4)
[2020-02-28 19:31] LABS: ALBUMIN 2.9 g/dL (3.4-5.0); ANION GAP 21.7 (8-16); CARBON DIOXIDE 18.8 mmol/L (21-32); CREATININE 1.3 mg/dL (0.6-1.3); POTASSIUM 3.5 mmol/L (3.5-5.1); TOTAL BILIRUBIN 0.3 mg/dL (0.0-1.0)
[2020-02-28] MEDS ORDERED: PIPERACILLIN/TAZOBACTAM 3.375 GM in DEXTROSE 5% 50 ML IV ONE (19:40)
[2020-02-28] MEDS ORDERED: VANCOMYCIN 1,000 MG in DEXTROSE 5% 250 ML IV ONE (19:40)
[2020-02-28] MEDS ORDERED: INSULIN REGULAR, HUMAN 100 UNIT/ML VIAL SUBQ ONE (19:40)
[2020-02-28] MEDS ORDERED: VANCOMYCIN 1,000 MG VIAL ONE (19:43)
[2020-02-28] MEDS ORDERED: PIPERACILLIN/TAZOBACTAM 3.375 GM VIAL IV ONE (19:43)
[2020-02-28 19:46] LABS: RBC,URINE 0-5 /HPF (0-5); WBC,URINE 0-5 /HPF (0-5)
[2020-02-28 19:52] LABS: C-REACTIVE PROTEIN QUANT 0.4 mg/dL (0.0-0.9)
[2020-02-28 19:53] LABS: LACTATE DEHYDROGENASE 263 U/L (81-234)
[2020-02-28] MEDS ORDERED: LORazepam 2 MG/ML VIAL IM/IVP PRN ×2 (20:20→22:40)
[2020-02-28] MEDS ORDERED: ONDANSETRON 4 MG/2 ML VIAL IM/IVP PRN (20:20)
[2020-02-28] MEDS ORDERED: DOCUSATE SODIUM 100 MG GELCAP PO PRN (20:20)
[2020-02-28] MEDS ORDERED: ACETAMINOPHEN 325 MG TAB PO PRN (20:20)
[2020-02-28] MEDS ORDERED: HYDROcodone/APAP 5/325 MG 1 TAB TAB PO PRN (20:20)
[2020-02-28] MEDS ORDERED: VANCOMYCIN PER PHARMACY MC PRN (20:25)
[2020-02-28] MEDS ORDERED: GLUCAGON 1 MG VIAL IVP PRN (20:40)
[2020-02-28] MEDS ORDERED: DEXTROSE 50% 50 ML SYR IVP PRN (20:40)
[2020-02-28] MEDS ORDERED: ALBUTEROL HFA MDI 90 MCG/ACTUATION 8 GM INH PRN (20:45)
--- NOTE | 2020-02-28 20:55 | NUR ---
ABG DRAWN AND RESULTS WERE RPRESENTED TO ED DR CM ABG RESULTS PH 7.40 CO2 29.5 HCO3 18.0 BE -5.6
[2020-02-28 20:58] LABS: CHOL/HDL RATIO 1.8 (1-4.5); FREE T4 (FREE THYROXINE) 1.23 ng/dL (0.76-1.46); MAGNESIUM 1.8 mg/dL (1.8-2.4); PHOSPHORUS 3.6 mg/dL (2.5-4.9); THYROID STIMULATING HORMONE 0.49 uIU/mL (0.34-3.74)
[2020-02-28] MEDS: BLOOD GLUCOSE MONITORING 1 DEV DEV FS SCH (21:00)
--- NOTE | 2020-02-28 23:15 | NUR ---
PATIENT ADMITTED TO [facility] RM 107B. TRANSFERRED PT VIA [facility] WITH CHARLES PEREZ. PATIENT AT STABLE CONDITION. REPORT GIVEN TO KEVIN ALMAGUER. TRANSFER OF CARE AT THIS TIME.
[2020-02-28 23:20] VITALS: BP 120/80
--- NOTE | 2020-02-29 | NUR ---
PT ARRIVED VIA GURNEY AT 2315. PT AOX1 SKIN INTACT HAS RIGHT SUBCLAVIAN PORT WITH TRIPLE LUMEN. ZOSYN HUNG AND PT GIVEN LATE LAMICTAL PO. ALL FALLS AND SEIXURE PRECAUTIONS IN [PLACE. CRITICAL LAB OF LACTIC ACID TRENDING DOWN TO 2.1.
[2020-02-29] MEDS ORDERED: PIPERACILLIN/TAZOBACTAM 3.375 GM VIAL IV ONE ×2 (00:36→06:33)
[2020-02-29] MEDS ORDERED: CRUSHER, PILL MC ONE (00:47)
[2020-02-29] MEDS: NACL 0.9% 1,000 ML IV SCH ×3 (01:33→21:53)
[2020-02-29] MEDS: PIPERACILLIN/TAZOBACTAM 3.375 GM in DEXTROSE 5% 50 ML IV SCH ×4 (01:35→17:21)
[2020-02-29 04:00] VITALS: BP 139/82
--- NOTE | 2020-02-29 04:00 | NUR ---
PT TURNED, CHANGED AND REPOSITIONED ALL FLUIDS RUNNING ORDERED SUBCLAVIAN PORT FLUSHED PATENT.
--- NOTE | 2020-02-29 06:30 | NUR ---
FINGERSTICK WAS 78 PT GIVEN JUICE AND APPLE SAUCE ZOSYN HUNG AND RUNNING ORDERED.
--- NOTE | 2020-02-29 07:21 | NUR ---
RECEIVED PATIENT FROM ENROLLMENT NURSE NURSE FOR CONTINUITY OF CARE. PATIENT IS CURRENTLY ASLEEP. NO SIGNS OF DISTRESS NOTED. RESPIRATIONS EVEN AND UNLABORED, ON 2L O2 VIA NC, O2SAT 96%. VISIBLE CHEST RISE AND FALL NOTED. G-TUBE PRESENT AND INTACT. DRESSING IN PLACE. TELE MONITORING. INCONTINENT. SKIN WARM, DRY, AND INTACT. PATIENT IS BEDBOUND. ON FALL, SEIZURE, AND DROPLET PRECAUTIONS. BED IN LOW POSITION. CALL LIGHT IS WITHIN REACH. WILL CONTINUE TO MONITOR. SAFETY MEASURES IN PLACE.
[2020-02-29] MEDS: BLOOD GLUCOSE MONITORING 1 DEV DEV FS SCH ×4 (07:30→21:00)
[2020-02-29 08:00] VITALS: BP 128/76
--- NOTE | 2020-02-29 08:09 | NUR ---
DRAWN BLOOD FROM PATIENT'S IJ LINE.
[2020-02-29 08:20] LABS: HEMATOCRIT 31.1 % (36-48); HEMOGLOBIN 9.9 g/dL (12.0-16.0); MEAN CORPUSCULAR HEMOGLOBIN 28 pg (27-31); MEAN CORPUSCULAR HGB CONC 32 g/dL (33-37); MEAN CORPUSCULAR VOLUME 87.4 fL (80-94); PLATELET COUNT (AUTO) 191 K/uL (140-450); RED BLOOD CELL COUNT(AUTO) 3.55 MIL/uL (4.20-5.40); RED CELL DISTRIBUTION WIDTH 14.1 % (11.6-13.7)
[2020-02-29] MEDS: LACTOBACILLUS RHAMNOSUS GG 1 EACH CAP GT SCH (08:34)
[2020-02-29] MEDS: ZINC SULF 220 MG CAP GT SCH (08:34)
[2020-02-29] MEDS: MULTIVITAMIN 1 TAB GT SCH (08:35)
[2020-02-29] MEDS: ASCORBIC ACID 500 MG TAB GT SCH (08:35)
[2020-02-29] MEDS: CHOLECALCIFEROL 1,000 IU TAB GT SCH (08:35)
[2020-02-29] MEDS: LEVOTHYROXINE 0.05 MG TAB GT SCH (08:36)
[2020-02-29] MEDS: DEXAMETHASONE 4 MG TAB GT SCH (08:36)
[2020-02-29] MEDS: ASPIRIN 81 MG TAB.CHEW GT SCH (08:36)
[2020-02-29] MEDS: glipiZIDE ER 5 MG TABER PO SCH (08:36)
--- NOTE | 2020-02-29 08:38 | NUR ---
GIVEN MORNING MEDICATIONS VIA GTUBE. 0 ML GASTRIC RESIDUAL. GIVEN VANILLA SHAKE VIA GTUBE. BLOOD SUGAR CHECKED: 96. NO INSULIN COVERAGE NEEDED.. PATIENT TOLERATED WELL. MEDICATION EDUCATION GIVEN. BED IN LOW POSITION. CALL LIGHT IS WITHIN REACH. WILL CONTINUE TO MONITOR.
--- NOTE | 2020-02-29 08:56 | NUR ---
PATIENT HAS BEEN SCREENED AND CATEGORIZED HIGH NUTRITION RISK. PATIENT WILL BE SEEN WITHIN 1-2 DAYS OF ADMISSION. 02/29/20 03/01/[address]
[2020-02-29] MEDS ORDERED: APIXABAN 2.5 MG TAB GT SCH (09:00)
[2020-02-29 09:12] LABS: ALBUMIN 2.5 g/dL (3.4-5.0); ANION GAP 13.8 (8-16); CARBON DIOXIDE 24.3 mmol/L (21-32); CREATININE 0.8 mg/dL (0.6-1.3); MAGNESIUM 1.9 mg/dL (1.8-2.4); PHOSPHORUS 2.6 mg/dL (2.5-4.9); POTASSIUM 3.1 mmol/L (3.5-5.1); TOTAL BILIRUBIN 0.2 mg/dL (0.0-1.0)
--- NOTE | 2020-02-29 11:15 | NUR ---
BLOOD SUGAR CHECKED: 146. NO INSULIN COVERAGE NEEDED. VS CHECKED.
[2020-02-29 11:51] LABS: LYMPHOCYTES % (MANUAL) 23 % (20-46); MONOCYTES % (MANUAL) 13 % (5-12)
[2020-02-29 11:52] LABS: BASOPHILS % (MANUAL) 0 % (0-2); EOSINOPHILS % (MANUAL) 0 % (0-4)
[2020-02-29 12:00] VITALS: BP 132/75
--- NOTE | 2020-02-29 12:29 | NUR ---
GARDENIA RON VIA IVPB. EXPLAINED MEDICATION. PATIENT ASLEEP. BED IN LOW POSITION. CALL LIGHT IS WITHIN REACH. WILL CONTINUE TO MONITOR.
--- NOTE | 2020-02-29 13:20 | NUR ---
STARTED GTUBE FEEDING GLUCERNA AT A RATE OF 60 ML/HR, H2O FLUSH 120 ML Q4H. GASTRIC RESIDUAL 5 ML. WILL RECHECK GASTRIC RESIDUAL IN AN HOUR.
--- NOTE | 2020-02-29 14:46 | NUR ---
GASTRIC RESIDUAL OF 10 ML. PATIENT IS TOLERATING FEEDING. BED IN LOW POSITION. CALL LIGHT IS WITHIN REACH. WILL CONTINUE TO MONITOR.
--- NOTE | 2020-02-29 15:33 | NUR ---
PATIENT ASLEEP. GTUBE AND IVF RUNNING WELL. BED IN LOW POSITION. CALL LIGHT IS WITHIN REACH. WILL CONTINUE TO MONITOR
[2020-02-29 16:00] VITALS: BP 125/71
--- NOTE | 2020-02-29 16:28 | NUR ---
BLOOD SUGAR CHECKED: 159. WILL GIVE INSULIN COVERAGE. PATIENT TOLERATED WELL.
[2020-02-29] MEDS: INSULIN LISPRO SLIDING SCALE 100 UNITS/ML VIAL SUBQ PRN ×2 (17:01→22:55)
--- NOTE | 2020-02-29 17:22 | NUR ---
GIVEN 2 UNITS OF HUMALOG SUQB IN THE RIGHT UPPER ARM FOR BS OF 159. PATIENT TOLERATED WELL. GARDENIA GUAMAN VIA IVPB. WILL CONTINUE TO MONITOR.
[2020-02-29] MEDS: ALBUTEROL HFA MDI 90 MCG/ACTUATION 8 GM INH SCH (18:00)
--- NOTE | 2020-02-29 18:15 | NUR ---
HELPED MANAGER RECOVERY TRANSPORT PATIENT TO IMAGING FOR CT OF THE HEAD W/O CONTRAST. ON A PORTABLE O2, 2L. PATIENT TOLERATED WEL.
--- NOTE | 2020-02-29 18:50 | NUR ---
RECEIVED A CALL FROM DR. ALAS REPORTED THAT PATIENT HAS NEW RIGHT FRONTAL LOBE ACUTE STROKE. DR. TREVOR BARRERA.
--- NOTE | 2020-02-29 19:21 | NUR ---
ENDORSED PATIENT TO THE FACILITIES PLANT ENGINEER NURSE FOR CONTINUITY OF CARE. PATIENT IS IN STABLE CONDITION.
--- NOTE | 2020-02-29 19:22 | NUR ---
RECEIVED REPORT FROM DAY SHIFT NURSE FOR CONTINUITY OF CARE. PT IS AXO X1. COVID POSITIVE. RESPIRATIONS ARE EVEN AND UNLABORED, BREATHING TO 2LPM NC. SKIN COLOR APPROPRIATE FOR ETHNICITY. SUBCLAVIAN IJ IV IS PATENT AND INTACT, AND RUNNING ORDERED. TUBE FEED. DROPLET AND FALL PRECAUTIONS. REVIEWED POC WITH PT. SAFETY MEASURES IN PLACE; CALL LIGHT WITHIN REACH, BED IN LOW POSITION. WILL CONTINUE TO MONITOR.
--- NOTE | 2020-02-29 19:45 | NUR ---
ORDERED BY DR MURRAY, PT IS TO BE TRANSFERRED TO A HIGHER LEVEL OF CARE.
[2020-02-29 20:00] VITALS: BP 146/78
--- NOTE | 2020-02-29 20:00 | NUR ---
CALLED [facility] AND ABLE TO TALKED TO PAUL FOR NEED TO TRANSFER PT FOR HLOC. WILL Fax PAPERS NEEDED.
[2020-02-29] MEDS: ATORVASTATIN 20 MG TAB PO SCH (20:28)
--- NOTE | 2020-02-29 20:40 | NUR ---
FAXED ALL REQUIRED PAPERS FOR TRANSFER TO [facility] .
--- NOTE | 2020-02-29 20:41 | NUR ---
RECEIVED A CALL FROM LAB REPORTING POSITIVE BLOOD CULTURE; GRAM + COCCI CLUSTERS. WILL NOTIFY
--- NOTE | 2020-02-29 20:49 | NUR ---
SCHEDULED MEDICATION GIVEN VIA G-TUBE. COVID SPECIMEN OBTAINED, AND BROUGHT TO LAB. VITAL SIGNS TKEN, AND STABLE. NO ACUTE DISTRESS NOTED. WILL CONTINUE TO MONITOR.
--- NOTE | 2020-02-29 20:55 | NUR ---
JANICE FROM [facility] CALLED AND SHE SAID SHE IS LOOKING FOR A NEUROLOGIST TO TAKE CARE OF PT. WILL CALL DR. MURRAY,RESIDENT IF EVER THEY ALREADY HAVE THE NEUROLOGIST
--- NOTE | 2020-02-29 21:12 | NUR ---
JANICE FROM [facility] CALLED AND SHE SAID THE NEUROLOGIST DR. ROSS DECLINED THE PT. DR. MURRAY WAS THE ONE THAT NEUROLOGIST TALKED TO EARLIER. PER JANICE.
--- NOTE | 2020-02-29 22:00 | NUR ---
CALLED [facility] AT [phone], LEFT MESSAGE REGARDING PATIENT TRANSFER FOR HIGHER LEVEL OF CARE AND TO CALL BACK [facility].
[2020-02-29] MEDS: APIXABAN 2.5 MG TAB PO SCH (22:35)
[2020-02-29] MEDS: VANCOMYCIN 750 MG in DEXTROSE 5% 250 ML IV SCH (22:36)
--- NOTE | 2020-02-29 22:58 | NUR ---
SCHEDULED MEDICATIONS GIVEN VIA G-TUBE. G-TUBE ASPIRATED WITH 25 ML RESIDUAL. G-TUBE FLUSHED BEFORE AND AFTER MEDICATION ADMINISTRATION. IVPB VANCOMYCIN HUNG, AND RUNNING PER ORDERS. BGL CHECKED; BGL: 168, 2 UNITS COVERAGE GIVEN
--- NOTE | 2020-02-29 23:05 | NUR ---
CALLED [facility] AT [phone], SPOKE WITH ZAHIDA MOYA PATIENT'S TRANSFER FOR HIGHER LEVEL OF CARE, ZAHIDA SAID " WE DONT HAVE NEURO HERE".
--- NOTE | 2020-02-29 23:07 | NUR ---
FOLLOW UP CALL MADE TO [facility], SPOKE WITH CHARLES, PATIENT INFORMATIONS GIVEN, CHARLES ASKED TO FAX FACE SHEET, H&P, CONSULT, LABS, LABS, MEDICATIONS TO [phone].
[2020-02-29] MEDS ORDERED: POTASSIUM CHLORIDE 20% 40 MEQ/15 ML UDC GT ONE (23:15)
[2020-03-01] VITALS: BP 143/88
--- NOTE | 2020-03-01 00:10 | NUR ---
CALLED [facility], SPOKE WITH CHARLES AND INFORMED HIM THAT FAX NUMBER THAT HE GAVE WAS NOT WORKING. CHARLES GAVE ANOTHER NUMBER [phone] TO FAX PAPERS. CHARLES FAXED RETURN AGREEMENT FORM TO [facility] ALSO AND WAS FAXED BACK TO HIM.
[2020-03-01] MEDS ORDERED: POTASSIUM CHLORIDE 20% 40 MEQ/15 ML UDC ONE (00:22)
[2020-03-01] MEDS: PIPERACILLIN/TAZOBACTAM 3.375 GM in DEXTROSE 5% 50 ML IV SCH ×5 (00:27→23:26)
--- NOTE | 2020-03-01 00:41 | NUR ---
ORDERED POTASSIUM, ADMINISTERED VIA G-TUBE. POTASSIUM LEVEL: 3.1. NO DISTRESS NOTED. TELE MONITOR ATTACHED. SAFETY MEASURES IN PLACE WILL CONTINUE TO MONITOR.
--- NOTE | 2020-03-01 02:00 | NUR ---
FOLLOW UP CALL MADE TO [facility], LEFT MESSAGE ON THEIR VOICEMAIL.
--- NOTE | 2020-03-01 02:13 | NUR ---
PT IS AWAKE IN BED, NO DISTRESS NOTED. IV FLUIDS, AND G-TUBE FEEDING RUNNING ORDERED. WILL CONTINUE TO MONITOR.
--- NOTE | 2020-03-01 03:34 | NUR ---
NO CALL BACK RECEIVED FROM [facility], MADE A CALL AGAIN TO FOLLOW UP, LEFT MESSAGE ON THEIR VOICEMAIL.
[2020-03-01 04:00] VITALS: BP 161/88
--- NOTE | 2020-03-01 04:15 | NUR ---
RECEIVED CALL FROM [facility], HE SAID THAT THEY WILL LET THE NEUROLOGIST REVIEW THE CASE AND THEY WILL CALL [facility] FOR UPDATES.
--- NOTE | 2020-03-01 05:15 | NUR ---
NEW BOTTLE OF GLUCERNA HUNG, G-TUBE FEED RUNNING PER ORDERS.
[2020-03-01] MEDS: ALBUTEROL HFA MDI 90 MCG/ACTUATION 8 GM INH SCH ×4 (06:00→18:00)
--- NOTE | 2020-03-01 07:19 | NUR ---
ENDORSED TO DAY SHIFT NURSE, FOR CONTINUITY OF CARE. PT IS IN STABLE CONDITION.
--- NOTE | 2020-03-01 07:20 | NUR ---
RECEIVED BEDSIDE REPORT FROM NIGHTSHIFT NURSE. PT RESTING IN BED. FLACC 0. RESPIRATIONS EVEN AND UNLABORED WITH NO SOB OR RESPIRATORY DISTRESS. SKIN WARM AND DRY TO TOUCH. IV SITE IN RFA 20G IS CLEAN, DRY, AND INTACT. SAFETY MEASURES IN PLACE. WILL CONTINUE TO MONITOR
[2020-03-01] MEDS: BLOOD GLUCOSE MONITORING 1 DEV DEV FS SCH ×4 (07:59→21:21)
[2020-03-01 08:00] VITALS: BP 154/81
[2020-03-01] MEDS: APIXABAN 2.5 MG TAB PO SCH ×2 (08:27→20:17)
[2020-03-01] MEDS: DEXAMETHASONE 4 MG TAB GT SCH (08:29)
[2020-03-01] MEDS: MULTIVITAMIN 1 TAB GT SCH (08:29)
[2020-03-01] MEDS: LACTOBACILLUS RHAMNOSUS GG 1 EACH CAP GT SCH (08:29)
[2020-03-01] MEDS: CHOLECALCIFEROL 1,000 IU TAB GT SCH (08:29)
[2020-03-01] MEDS: ASCORBIC ACID 500 MG TAB GT SCH (08:30)
[2020-03-01] MEDS: LEVOTHYROXINE 0.05 MG TAB GT SCH (08:30)
[2020-03-01] MEDS: ASPIRIN 81 MG TAB.CHEW GT SCH (08:30)
[2020-03-01] MEDS: ZINC SULF 220 MG CAP GT SCH (08:30)
[2020-03-01] MEDS: glipiZIDE ER 5 MG TABER PO SCH (08:30)
--- NOTE | 2020-03-01 08:30 | NUR ---
ADMINISTERED SCHED MED PRESCRIBED PER MD ORDER. PT TOLERATED WELL. MEDICATION EDUCATION PERFORMED. PT APHASIC AND UNABLE TO VERBALIZE UNDERSTANDING. SAFETY MEASURES IN PLACE. WILL CONTINUE TO MONITOR
--- NOTE | 2020-03-01 08:30 | NUR ---
RECEIVED BEDSIDE REPORT FROM NIGHTSHIFT NURSE. PT RESTING IN BED. FLACC 0. RESPIRATIONS EVEN AND UNLABORED WITH NO SOB OR RESPIRATORY DISTRESS. SKIN WARM AND DRY TO TOUCH. IV SITE IN L WRIST 20G IS CLEAN, DRY, AND INTACT. SAFETY MEASURES IN PLACE. WILL CONTINUE TO MONITOR Addendum: 03/01/20 at 0845 by Jennie Chapa RN DISREGARD NOTE
--- NOTE | 2020-03-01 08:45 | NUR ---
CALLED LAB FOR CLARIFICATION ON REPORTED POSITIVE BLOOD CULTURE, GRAM POSITIVE COCCI CLUSTERS. PER LAB PERSONNEL, THERE IS NO RECORD OF POSITIVE RESULT. RESIDENT DR BARRERA.
--- NOTE | 2020-03-01 09:12 | NUR ---
DISCHARGE PLANNING: CONTACTED [facility] AT [phone], ABLE TO SPEAK TO NOELLE. HE STATED THAT THEY ARE AT CAPACITY AT THIS TIME BUT ABLE TO TAKE PATIENT'S INFORMATION . PROVIDED HIM WITH ALL THE INFORMATION NEEDED. PER NOELLE THE FAX NUMBER TO SEND REFERRAL IS [phone]. REFERRAL SENT. WILL FOLLOW UP. Addendum: 03/02/20 at 0813 by Gabriela Hines CM CONTACTED [facility], ABLE TO SPEAK TO NOELLE. HE STATED THEY ARE STILL IN LEVEL 3 AND NO AVAILABLE BEDS AT THIS TIME. CALLED [facility] AT [phone], LEFT MESSAGE REGARDING PATIENT TRANSFER FOR HIGHER LEVEL OF CARE AND TO CALL BACK [facility]. Addendum: 03/02/20 at 1511 by Gabriela Hines CM DISCUSSED DURING BED HUDDLE, WILL CANCEL HLOC TRANSFER PER DR. CATALAN. Addendum: 03/03/20 at 1114 by Gabriela Hines LATE ENTRY: DISCUSSED DURING BED HUDDLE, DR ALAS IS RECOMMENDING MRI OF THE BRAIN TO R/O STROKE. CONTACTED PRIMARY RN CALISTA TO FILL OUT MRI QUESTIONNAIRE AND SHE ASKED "WHAT IS THAT?" INFORMED HER THAT SHE CAN PRINT OUT THE FORM FROM THE FORMS ON DEMAND AND REACH OUT TO THE PATIENT/FAMILY TO ANSWER QUESTIONNAIRE. SHE STATED SHE IS BUSY RIGHT NOW AND WILL DO IT ONCE SHE IS DONE PASSING MEDS. [facility] DIRECTOR MADE AWARE. CONTACTED OFELIA, FURNACE INSTALLER HELPER ON [facility]OTH [facility] OFFICE, NO ANSWER. LEFT MESSAGE. CONTACTED RADIOLOGY [id number], ABLE TO SPEAK TO WILL. HE STATED OFELIA IS OFF TODAY. REQUESTED TO GET TRANSFERRED TO [facility]. RECEIVED A CALL BACK FROM DONNIE, INQUIRED IF [facility] NOT HAVE AN HOSPICE RN. SHE STATED SHE WILL REACH OUT TO THEM AND WILL CALL ME BACK. RECEIVED A CALL BACK FROM DONNIE STATING THAT [facility] DOES NOT HAVE MRI UNTIL NEXT WEEK AND THE ONE WHO IS COVERING IS NOT AVAILABLE AT THIS TIME. CONTACTED [facility], ABLE TO SPEAK TO VAIBHAV. SHE STATED THEY DO NOT HAVE A TECH UNTIL NEXT WEEK. CONTACTED AUBREE VALENTIN, ABLE TO SPEAK TO [facility] RN. HE STATED THEY CAN NOT DO MRI TO COVID POSITIVE PATIENTS. CONTACTED [facility], ABLE TO SPEAK TO TYRONE. SHE STATED SHE WILL ASK MRI DEPARTMENT AND HER TRAVEL AGENT IF WHAT IS THEIR TAKE ON THIS ONE. RECEIVED A CALL BACK FROM TYRONE STATING SHE DID NOT HEAR ANYTHING BACK FROM THEIR HOSPICE RN, HOWEVER REQUESTED TO SEND THE REFERRAL. Addendum: 03/03/20 at 1124 by Gabriela Hines REFERRAL SENT TO [facility]. Addendum: 03/03/20 at 1145 by Gabriela Hines CM RECEIVED A CALL BACK FROM TYRONE OF [facility] ASKING IF WE WANT AN IN PATIENT TRANSFER FOR STROKE INSTEAD. I ASKED HER IF THEY HAVE A BED IF WE TRANSFER THE PATIENT IN PATIENT. SHE STATED THEY CAN PRIORITIZE SINCE WE ARE RULING OUT STROKE, IF NOT NO TELE BEDS AT THIS TIME. SHE ALSO REQUESTED AN NEURO TO NEURO REPORT. I INFORMED HER THAT I WILL FIND OUT DR. ALAS'S CP NUMBER. DR. RUFFIN MADE AWARE, PROVIDED ME WITH DR. ALAS'S CP NUMBER [phone]. DR. ALAS'S NUMBER PROVIDED TO TYRONE AT [facility]. Addendum: 03/03/20 at 1210 by Gabriela Hines CM RECEIVED A CALL BACK FROM TYRONE OF [facility], STATING THAT PER THEIR NEUROLOGIST DR. SALAS THEY ARE NOT ABLE TO ACCEPT THE PATIENT DUE TO IT HAS BEEN 4 DAYS AND PLUS THEIR ED IS PACKED WELL. DR. MORROW MADE AWARE. Addendum: 03/03/20 at 1547 by Gabriela Hines CM 1030: RECEIVED A CALL FROM [facility], STATING THAT THEY ARE AT A CAPACITY AND STILL NO BEDS AVAILABLE AT THIS TIME. WILL CHECK BACK AGAIN IN 4 HOURS. 1540: RECEIVED A CALL FROM [facility], STATING THAT THEY DO NOT HAVE BEDS AVAILABLE AT THIS TIME AND WILL BE CALLING US BACK AGAIN IN 4 HOURS TO UPDATE US WITH BED AVAILABILITY. Addendum: 03/03/20 at [address] Hines CM DR[address] ALAYNA BARRERA. Addendum: 03/05/20 at 1038 by Gabriela Hines CM DISCUSSED DURING BED HUDDLE, WILL ARRANGE MRI NEXT WEEK. CONTACTED [facility] RADIOACTIVITY TECHNICIAN, IF WHAT'S THE EARLIEST WE CAN SET UP MRI FOR THIS PATIENT. SHE STATED SHE WILL REACH OUT TO [facility] AND WILL GIVE ME A CALL BACK. Addendum: 03/05/20 at 1103 by Gabriela Hines CM RECEIVED A CALL BACK FROM [facility] STATING THAT THE EARLIEST THEY CAN SCHEDULE THE PATIENT IS MAR 09, 2020 AT 1000. CONTACTED [facility], ABLE TO SPEAK TO VAIBHAV. SHE PROVIDED ME THE FAX NUMBER [phone] TO SEND ORDER. Addendum: 03/05/20 at 1423 by Gabriela Hines CM 1105: REFERRAL SENT TO [facility]. CHARGE NURSE MADE AWARE THAT MRI QUESTIONNAIRE NEEDS TO BE FILLED OUT. 1139: CONTACTED [facility], ABLE TO SPEAK TO ALAIAN TO FOLLOW UP ON THE REFERRAL SENT. SHE STATED SHE HAS TO TRANSFER ME TO [facility]MAG[facility]. NO ANSWER. LEFT MESSAGE. 1257: RECEIVED A MESSAGE FROM YUVAL ALMAGUER OF [facility], STATING THAT IT IS NOT SURE YET IF THEY HAVE THE TECH ON SUNDAY. SHE STATED SHE WILL NOT BE IN THIS AFTERNOON AND WILL FOLLOW UP WITH ME ON SUNDAY AND SHE IS ALSO REQUESTING FOR THE MRI QUESTIONNAIRE. REMINDED THE CHARGE NURSE. 1333: CONTACTED [facility], ABLE TO SPEAK TO VAIBHAV. SHE STATED THAT [facility] IS NOT THERE MIGHT WENT FOR LUNCH BREAK. I ASKED TO BE TRANSFERRED TO [facility]. PER ALAINA SHE DID NOT GET ANY UPDATES ON THIS ONE BECAUSE [facility] IS THE ONE ARRANGING IT. WILL FOLLOW UP.
--- NOTE | 2020-03-01 11:30 | NUR ---
PT BLOOD SUGAR IS 111. NO INSULIN NEEDED AT THIS TIME. SAFETY MEASURES IN PLACE. WILL CONTINUE TO MONITOR
[2020-03-01] MEDS: NACL 0.9% 1,000 ML IV SCH (11:31)
[2020-03-01 12:00] VITALS: BP 141/83
--- NOTE | 2020-03-01 13:56 | NUR ---
03/01/20 RD INITIAL ASSESSMENT COMPLETED PLEASE REFER TO NUTRITION ASSESSMENT UNDER CARE ACTIVITY FOR ESTIMATED NUTRITIONAL NEEDS. 1. CONTINUE GLUCERNA 1.2 @ 60 ML/HR X 24 HR -THIS PROVIDES 1728 CALORIES AND 86 GRAMS OF PROTEIN WHICH MEETS 100% OF ESTIMATED NEEDS 2. CONTINUE VITAMIN C, ZINC, AND VITAMIN D DAILY 3. CONTINUE [address] TO FOLLOW-UP 2-3 DAYS, MODERATE RISK ALEE SCHAEFFER RD
--- NOTE | 2020-03-01 14:00 | NUR ---
PT SLEEPING IN BED. RESPONSIVE TO VERBAL AND TACTILE STIMULI. FLACC 0. RESPIRATIONS EVEN AND UNLABORED WITH NO SOB OR RESPIRATORY DISTRESS. SKIN WARM AND DRY TO TOUCH. SAFETY MEASURES IN PLACE. WILL CONTINUE TO MONITOR
--- NOTE | 2020-03-01 15:29 | NUR ---
HOURLY ROUNDING. PT RESTING IN BED. FLACC 0. RESPIRATIONS EVEN AND UNLABORED WITH NO SOB OR RESPIRATORY DISTRESS. SKIN WARM AND DRY TO TOUCH. SAFETY MEASURES IN PLACE. WILL CONTINUE TO MONITOR
--- NOTE | 2020-03-01 15:43 | NUR ---
P.T. NOTES P.T. EVAL COMPLETED; ENDORSED TO NURSING, NON AMBULATORY.
[2020-03-01 16:00] VITALS: BP 142/84
--- NOTE | 2020-03-01 16:19 | NUR ---
ST NOTE Pt NOT APPROPRIATE FOR SWALLOW EVAL AND PO DIET D/T Pt IS NOT ALERT W/ PLOF PEG. ST DISCUSSED WITH ALONSO ALMAGUER. RN WILL COMMUNICATE WITH . TOYA MOSHER MS, CCC-MANAGER SOCIAL MEDIA
--- NOTE | 2020-03-01 16:30 | NUR ---
PT BLOOD SUGAR IS 261 PRN INSULIN WILL BE ADMINISTERED PRESCRIBED PER MD ORDER. MEDICATION EDUCATION PERFORMED. PT APHASIC AND UNABLE TO VERBALIZE UNDERSTANDING. SAFETY MEASURES IN PLACE. WILL CONTINUE TO MONITOR
[2020-03-01] MEDS: INSULIN LISPRO SLIDING SCALE 100 UNITS/ML VIAL SUBQ PRN ×2 (16:33→21:26)
--- NOTE | 2020-03-01 18:45 | NUR ---
RECEIVED CALL FROM [facility] SAYING THAT THEY STILL DO NOT HAVE ANY BEDS OPEN AT THIS TIME AND THAT THEY CHECK EVERY 4HRS. SAID THEY WILL CALL BACK IF ANYTHING CHANGES. WILL CONTINUE TO MONITOR
[2020-03-01] MEDS ORDERED: POTASSIUM CHLORIDE 20% 40 MEQ/15 ML UDC GT ONE (19:20)
--- NOTE | 2020-03-01 19:27 | NUR ---
RECEIVED PATIENT REPORT FROM TRIPP GUPTA. AO X 1. PT SLEEPING IN BED. RESPONSIVE TO VERBAL AND TACTILE STIMULI. FLACC 0. RESPIRATIONS EVEN AND UNLABORED WITH NO SOB OR RESPIRATORY DISTRESS. NO SEIZURES NOTED. RIGHT IJ SUBCLAVIAN TRIPLE LUMEN NS AT 75ML/HR, PATENT. SKIN WARM AND DRY TO TOUCH. SAFETY MEASURES IN PLACE. WILL CONTINUE TO MONITOR
--- NOTE | 2020-03-01 19:28 | NUR ---
PATIENT ON 2 L O2 VIA CANNULA CANNULA, NO RESPIRATORY DISTRESS NOTED
--- NOTE | 2020-03-01 19:29 | NUR ---
MENTIONED TO TRIPP GUPTA RE: POTASSIUM 3.1 AND SHE SAID SHE MENTIONED TO THE RESIDENTS, WILL FF.UP
[2020-03-01 20:00] VITALS: BP 152/87
--- NOTE | 2020-03-01 20:15 | NUR ---
POTASSIUM CHLORIDE 20%, 40 MEQ IN 15 ML WAS GIVEN VIA G TUBE PER DOCTORS ORDER. POTASSIUM WAS 3.1 PREVIOUSLY WHEN THE PHYSICIAN WAS NOTIFIED BY ALONSO SANCHEZ RN. WILL FOLLOW UP AND CONTINUE TO MONITOR POTASSIUM LAB LEVEL.
[2020-03-01] MEDS: VANCOMYCIN 750 MG in DEXTROSE 5% 250 ML IV SCH (20:17)
[2020-03-01] MEDS: LISINOPRIL 10 MG TAB PO SCH (20:18)
[2020-03-01] MEDS: ATORVASTATIN 20 MG TAB PO SCH (20:19)
--- NOTE | 2020-03-01 21:00 | NUR ---
PT IS IN STABLE CONDITION. A&O X 1 AND APHASIC. RESPIRATIONS ARE EVEN AND UNLABORED. NO SOB ON 2 LITERS NASAL CANNULA. TUBE FEEDING WAS CHANGED AND IS RUNNING GLUCERNA 1.2 AT 60 ML PER HOUR PER DOCTOR ORDER. H2O FLUSH IS 120 ML Q 4HR ORDERED. IV IS PATENT AND INTACT. NO SIGNS OF DISTRESS. WILL CONTINUE TO MONITOR.
--- NOTE | 2020-03-01 21:01 | NUR ---
BLOOD SUGAR TAKEN AT BS LEVEL 164. PATIENT IS IN GLUCERNA 1.2 TUBE FEEDING.
--- NOTE | 2020-03-01 23:00 | NUR ---
PT IS SLEEPING IN SEMI FOWLERS POSITION. NO DISTRESS IS NOTED. CHEST RISE IS SYMMETRICAL AND BREATHING IS UNLABORED. TUBE FEEDING GLUCERNA 1.2 IS RUNNING AT 60 ML PER HOUR PER DOCTORS ORDER. IT IS PATENT AND RUNNING EFFECTIVELY. NS IS ALSO RUNNING AT 75 ML PER HOUR PER DOCTORS ORDER. IT IS INTACT, PATENT, AND NO SIGNS OF SWELLING IN THE RIGHT SUBCLAVIAN IJ. WILL CONTINUE TO MONITOR.
--- NOTE | 2020-03-01 23:54 | NUR ---
PATIENT POSITIVE COVID REPORTED BY BAMBI, ANDREA, INFORMED DR. SEVERINO. PATIENT WAS ALREADY POSTIVE COVID PRIOR TO ADMISSION
[2020-03-02] VITALS: BP 154/87
--- NOTE | 2020-03-02 01:00 | NUR ---
PATIENT TURNED/ REPOSITIONED Q2; PRESSURE AREAS OFFLOADED WITH PILLOWS
[2020-03-02] MEDS: NACL 0.9% 1,000 ML IV SCH ×3 (01:26→20:54)
--- NOTE | 2020-03-02 01:28 | NUR ---
TICKET NO [id number]
--- NOTE | 2020-03-02 01:36 | NUR ---
PT IN NO DISTRESS AT THIS TIME PT SAT 100% f 15 HR 78
--- NOTE | 2020-03-02 01:54 | NUR ---
PT IS SLEEPING COMFORTABLY AND NO SIGNS OF DISTRESS ARE NOTED. IV IS RUNNING AND TUBE FEEDING IS ALSO RUNNING PER DOCTORS ORDER. O2 SAT IS 99% ON 2 LITERS NASAL CANNULA AND RESPIRATIONS ARE UNLABORED. WILL CONTINUE TO MONITOR.
[2020-03-02] MEDS: ALBUTEROL HFA MDI 90 MCG/ACTUATION 8 GM INH SCH ×2 (02:17→06:58)
--- NOTE | 2020-03-02 02:37 | NUR ---
CHECKED ON PATIENT, SLEEPING NO SIGNS OF RESPIRATORY DISTRESS, WILL CONTINUE TO MONITOR
[2020-03-02 04:00] VITALS: BP 156/93
--- NOTE | 2020-03-02 04:40 | NUR ---
PT IS AWAKE AND ALERT X 1. RESPIRATIONS ARE UNLABORED. PT RESPONDS TO NAME. NO SIGNS OF DISTRESS.
[2020-03-02] MEDS: PIPERACILLIN/TAZOBACTAM 3.375 GM in DEXTROSE 5% 50 ML IV SCH (05:42)
[2020-03-02] MEDS: BLOOD GLUCOSE MONITORING 1 DEV DEV FS SCH ×4 (05:58→21:00)
--- NOTE | 2020-03-02 06:28 | NUR ---
PT IS SLEEPING IN BED WITH NO SIGNS OF DISTRESS. PT IS EASILY AROUSED WHEN CALLING HER NAME. PT SEEMS TO BE IN STABLE CONDITION. NO SOB OR COUGHING CURRENTLY. PT'S O2 SAT IS 100% ON 2 L NC. PT IS AWAITING TO BE TRANSFERRED TO [facility] FOR AN MRI WHEN PLACEMENT BECOMES AVAILABLE. G TUBE IS PATENT AND RUNNING GLUCERNA 1.2 AT 60 ML PER HR PER ORDER. THE G TUBE IS FLUSHED Q 4HR WITH 120 ML OF H20. IV IS PATENT AND INTACT. IT IS RUNNING NS AT 75 ML SC HR PER ORDER. THE PT DID NOT HAVE ANY SIGNS OF A FEVER ON THIS SHIFT. WILL ENDORSE TO DAY SHIFT NURSE FOR CONTINUITY OF CARE.
--- NOTE | 2020-03-02 07:20 | NUR ---
RECEIVED PATIENT REPORT FROM HOTEL CONTROLLER RN, SEAMUS, FOR CONTINUITY OF CARE. AO X 1. PT SLEEPING IN BED. RESPONSIVE TO VERBAL AND TACTILE STIMULI. FLACC 0. RESPIRATIONS EVEN AND UNLABORED WITH NO SOB OR RESPIRATORY DISTRESS, ON 2L NC. NO SEIZURES NOTED. RIGHT IJ SUBCLAVIAN TRIPLE LUMEN NS AT 75ML/HR, PATENT. SKIN WARM AND DRY TO TOUCH. SAFETY MEASURES IN PLACE, SEIZURE AND FALL PRECAUTIONS IN PLACE. CALL LIGHT WITHIN REACH. POC IS DISCUSSED. WILL CONTINUE TO MONITOR
[2020-03-02 07:24] LABS: ANION GAP 11.9 (8-16); CARBON DIOXIDE 27.4 mmol/L (21-32); CREATININE 0.8 mg/dL (0.6-1.3); POTASSIUM 4.3 mmol/L (3.5-5.1)
[2020-03-02 07:26] LABS: BASOPHILS % (AUTO) 0.3 % (0.0-2.0); HEMATOCRIT 33.2 % (36-48); HEMOGLOBIN 10.5 g/dL (12.0-16.0); LYMPHOCYTES # (AUTO) 1.1 K/uL (2.5-16.5); LYMPHOCYTES % (AUTO) 10.4 % (20.5-51.1); MEAN CORPUSCULAR HEMOGLOBIN 28 pg (27-31); MEAN CORPUSCULAR HGB CONC 32 g/dL (33-37); MEAN CORPUSCULAR VOLUME 88.3 fL (80-94); MONOCYTES # (AUTO) 1.3 K/uL (0.8-1.0); MONOCYTES % (AUTO) 12.6 % (1.7-9.3); NEUTROPHILS % (AUTO) 76.7 % (42.2-75.2); PLATELET COUNT (AUTO) 260 K/uL (140-450); RED BLOOD CELL COUNT(AUTO) 3.76 MIL/uL (4.20-5.40); WHITE BLOOD COUNT (AUTO) 10.5 K/uL (4.8-10.8)
[2020-03-02 08:00] VITALS: BP 116/84
[2020-03-02] MEDS ORDERED: VANCOMYCIN 750 MG in DEXTROSE 5% 250 ML IV SCH (09:00)
--- NOTE | 2020-03-02 09:30 | NUR ---
PT. OFF UNIT FOR HEAD CT. IV LINE AND TUBE FEEDING DISCONNECTED. PT. IN STABLE CONDITION AND NO SIGNS OF DISTRESS. WILL CONTINUE TO MONITOR.
--- NOTE | 2020-03-02 09:40 | NUR ---
PT. BACK IN UNIT. IV LINE AND TUBE FEEDING RECONNECTED. NO SIGNS OF DISTRESS. WILL CONTINUE TO MONITOR.
[2020-03-02] MEDS: ASPIRIN 81 MG TAB.CHEW GT SCH (09:50)
[2020-03-02] MEDS: ASCORBIC ACID 500 MG TAB GT SCH (09:50)
[2020-03-02] MEDS: LACTOBACILLUS RHAMNOSUS GG 1 EACH CAP GT SCH (09:51)
[2020-03-02] MEDS: ZINC SULF 220 MG CAP GT SCH (09:51)
[2020-03-02] MEDS: CHOLECALCIFEROL 1,000 IU TAB GT SCH (09:51)
[2020-03-02] MEDS: MULTIVITAMIN 1 TAB GT SCH (09:51)
[2020-03-02] MEDS: DEXAMETHASONE 4 MG TAB GT SCH (09:52)
[2020-03-02] MEDS: LISINOPRIL 10 MG TAB PO SCH (09:52)
[2020-03-02] MEDS: glipiZIDE ER 5 MG TABER PO SCH (09:53)
[2020-03-02] MEDS: LEVOTHYROXINE 0.05 MG TAB GT SCH (09:54)
--- NOTE | 2020-03-02 10:00 | NUR ---
MORNING MEDICATIONS GIVEN. NO SIGNS OF DISTRESS NOTED. G-TUBE FEEDING IN PLACE, ABLE TO FLUSH AND IS PATENT. G-TUBE IN PLACE ASSESSED THROUGH AUSCULTATION. RESIDUAL AT 50ML, FEEDINGS RESUMED. FLACC-0. WILL CONTINUE TO MONITOR.
[2020-03-02] MEDS: APIXABAN 2.5 MG TAB PO SCH ×2 (10:13→20:38)
[2020-03-02 12:00] VITALS: BP 138/84
[2020-03-02] MEDS ORDERED: ALBUTEROL SULFATE/IPRATROPIU 3 ML SOL IH PRN (12:15)
--- NOTE | 2020-03-02 12:30 | NUR ---
BLOOD GLUCOSE OF 121. NO INSULIN COVERAGE NEEDED. WILL CONTINUE TO MONITOR.
--- NOTE | 2020-03-02 14:00 | NUR ---
PT. REMOVED VENT TUBINGS. REINSERTED VENT INTO PT. V/S 202/93, HR 110, O2 STAT 88%. DR. CATALAN AND DR. MORROW IS AWARE AND IS BY THE BEDSIDE. PT. IS LETHARGIC BUT RESPONSIVE TO PAIN STIMULI. RT IS AWARE. WILL CONTINUE TO MONITOR. Addendum: 03/02/20 at 1842 by Jud Melgar RN WRONG PATIENT
--- NOTE | 2020-03-02 14:15 | NUR ---
V/S RETAKEN 183/87, HR 88, O2STAT 97%. NEW ORDERS TO GIVE HYDRALAZINE PRN BY DR. MORROW. WILL FOLLOW THROUGH. RT IS BY THE BEDSIDE, O2 IS INCREASED. WILL CONTINUE TO MONITOR. Addendum: 03/02/20 at 1842 by Jud Melgar RN WRONG PATIENT
--- NOTE | 2020-03-02 14:20 | NUR ---
HYDRALAZINE GIVEN. NO SIGNS OF DISTRESS NOTED. PT. CONTINUES TO BE LETHARGIC BUT RESPONSIVE TO PAIN STIMULI. WILL CONTINUE TO MONITOR. Addendum: 03/02/20 at 1843 by Jud Melgar RN WRONG PATIENT
[2020-03-02 16:00] VITALS: BP 158/86
--- NOTE | 2020-03-02 16:20 | NUR ---
4 UNITS OF INSULIN GIVEN FOR BLOOD GLUCOSE OF 243. NO SIGNS OF DISTRESS NOTED. V/S TAKEN BP 158/86, HR 74, SAO2 99%, TEMP 98.1. FLACC-0. WILL REPORT TO MD ABOUT BLOOD PRESSURE. WILL CONTINUE TO MONITOR.
[2020-03-02] MEDS: INSULIN LISPRO SLIDING SCALE 100 UNITS/ML VIAL SUBQ PRN ×2 (16:30→23:04)
--- NOTE | 2020-03-02 18:08 | NUR ---
SPOKE TO DR. RUFFIN REGARDING PATIENTS BLOOD PRESSURE OF 158/86. NO ORDERS GIVEN. WILL CONTINUE TO MONITOR.
--- NOTE | 2020-03-02 19:23 | NUR ---
REPORT GIVEN AND PT. ENDORSED TO PM TRIPP STEVENS FOR CONTINUITY OF CARE
--- NOTE | 2020-03-02 19:24 | NUR ---
RECEIVED REPORT FROM DAY SHIFT NURSE FOR CONTINUITY OF CARE. PT IS AXO X1, APHASIC. COVID-19 POSITIVE, DROPLET PRECAUTIONS IN PLACE. RESPIRATIONS ARE EVEN AND UNLABORED, BREATHING TO 2LPM NC. SKIN COLOR APPROPRIATE FOR ETHNICITY. SUBCLAVIAN IJ IV IS PATENT AND INTACT, AND RUNNING ORDERED. TUBE FEED, FEEDING RUNNING ORDERED. FALL RISK, FALL PRECAUTIONS IN PLACE. REVIEWED POC WITH PT, PT UNABLE TO COMPREHEND. SAFETY MEASURES IN PLACE; CALL LIGHT WITHIN REACH, BED IN LOW POSITION. WILL CONTINUE TO MONITOR.
[2020-03-02 20:00] VITALS: BP 142/85
[2020-03-02] MEDS: ATORVASTATIN 20 MG TAB PO SCH (20:37)
--- NOTE | 2020-03-02 20:37 | NUR ---
G-TUBE ASPIRATED; 5 ML RESIDUAL NOTED. SCHEDULED MEDICATIONS ADMINISTERED VIA G-TUBE. G-TUBE FLUSHED BEFORE AND AFTER MEDICATION ADMINISTRATION. G-TUBE FEEDING RESTARTED, AND RUNNING ORDERED. IVF RUNNING ORDERED. NO DISTRESS NOTED. SAFETY MEASURES IN PLACE. TELE MONITOR ATTACHED. WILL CONTINUE TO MONITOR.
--- NOTE | 2020-03-02 22:02 | NUR ---
BGL CHECKED; BGL: 171, 2 UNITS COVERAGE PROVIDED.
[2020-03-03] VITALS: BP 140/70
--- NOTE | 2020-03-03 02:49 | NUR ---
PT WAS GIVEN 2x PUFF ALB VIA MDI W/ SPACER + MASK @ 00:54 AND PT TOLERATED WELL
[2020-03-03 04:00] VITALS: BP 146/82
--- NOTE | 2020-03-03 06:39 | NUR ---
G-TUBE FEEDING CHANGED, AND RUNNING PER ORDERS. BLOOD SUGAR CHECKED; BGL: 134. NO INSULIN COVERAGE NEEDED. NO DISTRESS NOTED. SAFETY MEASURES IN PLACE. TELE MONITOR ATTACHED. WILL CONTINUE TO MONITOR.
--- NOTE | 2020-03-03 07:16 | NUR ---
ENDORSED TO BOWLING BALL PATCHER NURSE, FOR CONTINUITY OF CARE. PT IS IN STABLE CONDITION.
--- NOTE | 2020-03-03 07:23 | NUR ---
RECEIVED REPORT FROM NATIONAL DEDICATED TRUCK DRIVER RN FOR CONTINUITY OF CARE. PT IS AAXO1, APHASIC. PT ON 2L O2 VIA NC SATING 96%. SKIN INTACT. PT FALL RISK BUT BEDBOUND AND UNABLE TO GET OUT OF BED. PT UNABLE TO COMPREHEND TEACHING OR UPDATE ON POC. WILL ROUND FREQUENTLY THROUGHOUT THE SHIFT.
[2020-03-03] MEDS: BLOOD GLUCOSE MONITORING 1 DEV DEV FS SCH ×4 (07:30→21:00)
[2020-03-03 07:43] LABS: ANION GAP 14.3 (8-16); CARBON DIOXIDE 26.8 mmol/L (21-32); CREATININE 0.8 mg/dL (0.6-1.3); POTASSIUM 4.1 mmol/L (3.5-5.1)
[2020-03-03 07:47] LABS: HEMATOCRIT 30.1 % (36-48); HEMOGLOBIN 9.7 g/dL (12.0-16.0); MEAN CORPUSCULAR HEMOGLOBIN 28 pg (27-31); MEAN CORPUSCULAR HGB CONC 32 g/dL (33-37); MEAN CORPUSCULAR VOLUME 88.2 fL (80-94); PLATELET COUNT (AUTO) 260 K/uL (140-450); RED BLOOD CELL COUNT(AUTO) 3.42 MIL/uL (4.20-5.40); RED CELL DISTRIBUTION WIDTH 14.5 % (11.6-13.7); WHITE BLOOD COUNT (AUTO) 12.4 K/uL (4.8-10.8)
[2020-03-03 08:00] VITALS: BP 143/79
[2020-03-03] MEDS: ASPIRIN 81 MG TAB.CHEW GT SCH (09:32)
[2020-03-03] MEDS: DEXAMETHASONE 4 MG TAB GT SCH (09:32)
[2020-03-03] MEDS: ASCORBIC ACID 500 MG TAB GT SCH (09:33)
[2020-03-03] MEDS: glipiZIDE ER 5 MG TABER PO SCH (09:33)
[2020-03-03] MEDS: CHOLECALCIFEROL 1,000 IU TAB GT SCH (09:33)
[2020-03-03] MEDS: LACTOBACILLUS RHAMNOSUS GG 1 EACH CAP GT SCH (09:33)
[2020-03-03] MEDS: ZINC SULF 220 MG CAP GT SCH (09:34)
[2020-03-03] MEDS: APIXABAN 2.5 MG TAB PO SCH ×2 (09:34→20:39)
[2020-03-03] MEDS: MULTIVITAMIN 1 TAB GT SCH (09:34)
[2020-03-03] MEDS: LEVOTHYROXINE 0.05 MG TAB GT SCH (09:35)
[2020-03-03] MEDS: LISINOPRIL 10 MG TAB PO SCH (09:35)
--- NOTE | 2020-03-03 09:38 | NUR ---
ADMINISTERED MORNING MEDS TO PT. PT TOLERATED WELL. ALL NEEDS MET. WILL CONTINUE TO ROUND FREQUENTLY ON PT.
[2020-03-03 10:12] LABS: LYMPHOCYTES % (MANUAL) 12 % (20-46)
[2020-03-03 10:13] LABS: BASOPHILS % (MANUAL) 0 % (0-2); EOSINOPHILS % (MANUAL) 0 % (0-4); MONOCYTES % (MANUAL) 5 % (5-12)
--- NOTE | 2020-03-03 11:46 | NUR ---
PT IN STABLE CONDITION. BS 131. NO INSULIN COVERAGE NEEDED. WILL CONTINUE TO ROUND FREQUENTLY ON PT.
[2020-03-03 12:00] VITALS: BP 121/68
--- NOTE | 2020-03-03 13:44 | NUR ---
PT. ADMITTED WITH LOW ABILIO SCALE AT RISK, CONTINUE TO FOLLOW PRESSURE ULCER PREVENTION INTERVENTIONS. -TURN AND REPOSITION PATIENT Q 2H -ASSESS AND MONITOR SKIN CONDITION DURING POSITION CHANGE -OFFLOAD BILATERAL HEELS BY PLACING PILLOWS UNDER CALVES AT ALL TIMES, UNLESS OTHERWISE CONTRAINDICATED -PRESSURE REDISTRIBUTION BY PLACING PILLOWS AND OFFLOADING SACRALCOCCYX -KEEP SKIN CLEAN AND DRY AT ALL TIMES.
--- NOTE | 2020-03-03 13:57 | NUR ---
PT RESTING IN BED. WOUND CONSULT DONE. WILL FOLLOW WOUND CARE NURSE'S RECOMMENDATIONS FOR PT CARE.
--- NOTE | 2020-03-03 15:42 | NUR ---
PT RESTING IN BED. ALL NEEDS MET.
[2020-03-03 16:00] VITALS: BP 155/90
[2020-03-03] MEDS: NACL 0.9% 1,000 ML IV SCH (16:33)
--- NOTE | 2020-03-03 16:41 | NUR ---
P.T. NOTES P.T. EVAL COMPLETED; WILL BENEFIT W/ P.T. DURING ACUTE STAY; HOME W/ ASSIST.
--- NOTE | 2020-03-03 17:53 | NUR ---
ALL NEEDS MET WT THIS TIME. WILL CONTINUE TO ROUND FREQUENTLY ON PT.
--- NOTE | 2020-03-03 19:00 | NUR ---
WILL ENDORSE TO GLOVE CUTTER FOR CONTINUITY OF CARE. PT IN STABLE CONDITION.
--- NOTE | 2020-03-03 19:05 | NUR ---
RECEIVED BEDSIDE REPORT FROM AM SHIFT NURSE CALISTA FOR CONTINUITY OF CARE. PATIENT IS IN STABLE CONDITION.
[2020-03-03 20:00] VITALS: BP 135/90
--- NOTE | 2020-03-03 20:00 | NUR ---
PT IS AOX1, APHASIC. SKIN INTACT. PT HAS RIGHT SUBCLAVIAN TRIPLE LUMEN INTACT AND RUNNING NS AT 75 ML/HR. PT HAS G TUBE INTACT RUNNING GLUCERNA 1.2 AT 60. NO RESIDUALS NOTED. ON 2L N/C, RESPIRATIONS EVEN AND UNLABORED. ALL DROPLET PRECAUTIONS IN PLACED. VS FOLLOWS: BP 135/90, RR 14, HR 91, TEMP 99.0, O2 SAT 99%.
--- NOTE | 2020-03-03 20:35 | NUR ---
PT TURNED, CHANGED, REPOSITIONED IN BED. RESPIRATIONS EVEN AND UNLABORED. NO S/S OF DISTRESS NOTED. ALL FALLS, DROPLET, SEIZURE, AND ASPIRATION PRECAUTIONS IN PLACE.
[2020-03-03] MEDS: ATORVASTATIN 20 MG TAB PO SCH (20:38)
[2020-03-03] MEDS ORDERED: CRUSHER, PILL MC ONE (20:46)
--- NOTE | 2020-03-03 21:00 | NUR ---
PT IN BED GIVEN DUE MEDS ELIQUIS, LAMICTAL, LIPITOR VIA G TUBE. PT FS IS 184, GIVEN 2 UNITS OF HUMALOG COVERAGE PER SLIDING SCALE. ALL ORDERED PRECAUTIONS IN PLACED.
[2020-03-03] MEDS: INSULIN LISPRO SLIDING SCALE 100 UNITS/ML VIAL SUBQ PRN (22:16)
[2020-03-04] VITALS: BP 157/90
--- NOTE | 2020-03-04 | NUR ---
PT TURNED, CHANGED, REPOSITION IN BED. ALL ORDERED PRECAUTIONS IN PLACED. G TUBE FEEDING TOLERATED WELL. VS FOLLOWS: BP 157/90 RR 17 HR 83 TEMP 98.2 02 SAT 100%.
[2020-03-04 04:00] VITALS: BP 125/61
--- NOTE | 2020-03-04 04:00 | NUR ---
PT IN BED [facility] NO C/O VOICED FLACC-O V/S FOLLOWS: T 97.7 P 70 R 16 B/P 125/61 02 15 LITERS VIA NON REBREATHER MASK PT TURNED, CHANGED AND REPOSITIONED IN BED V/S FOLLOWS: T 97.7 P 780 R 16 B/P 125/61 02 100% ALL ORDERED PRECAUTIONS IN PLACE.
[2020-03-04] MEDS: NACL 0.9% 1,000 ML IV SCH ×2 (05:53→17:46)
--- NOTE | 2020-03-04 06:00 | NUR ---
FINGERSTICK IS 102 NO HUMALOG COVERAGE NEEDED.
[2020-03-04 06:09] LABS: BASOPHILS # (AUTO) 0.1 K/uL (0.00-0.22); BASOPHILS % (AUTO) 0.6 % (0.0-2.0); EOSINOPHILS # (AUTO) 0.1 K/uL (0-0.4); EOSINOPHILS % (AUTO) 0.7 % (0.0-4.0); HEMATOCRIT 32.8 % (36-48); HEMOGLOBIN 10.3 g/dL (12.0-16.0); LYMPHOCYTES # (AUTO) 1.3 K/uL (2.5-16.5); LYMPHOCYTES % (AUTO) 10.4 % (20.5-51.1); MEAN CORPUSCULAR HEMOGLOBIN 28 pg (27-31); MEAN CORPUSCULAR HGB CONC 31 g/dL (33-37); MEAN CORPUSCULAR VOLUME 88.7 fL (80-94); MONOCYTES # (AUTO) 1.4 K/uL (0.8-1.0); MONOCYTES % (AUTO) 11.3 % (1.7-9.3); NEUTROPHILS # (AUTO) 9.8 K/uL (1.8-7.7); PLATELET COUNT (AUTO) 273 K/uL (140-450); RED BLOOD CELL COUNT(AUTO) 3.69 MIL/uL (4.20-5.40); RED CELL DISTRIBUTION WIDTH 14.8 % (11.6-13.7); WHITE BLOOD COUNT (AUTO) 12.7 K/uL (4.8-10.8)
[2020-03-04 06:45] LABS: ANION GAP 11.3 (8-16); CARBON DIOXIDE 30.5 mmol/L (21-32); CREATININE 0.8 mg/dL (0.6-1.3); POTASSIUM 4.8 mmol/L (3.5-5.1)
--- NOTE | 2020-03-04 07:10 | NUR ---
RECEIVED REPORT FROM PHYSICS INSTRUCTOR NURSE. PATIENT LYING DOWN IN BED, NO DISTRESS NOTED. RESPIRATIONS EVEN, UNLABORED, ON ROOM AIR. GTUBE SITE INTACT, PATENT, AND ON CONTINUOUS GTUBE FEEDING PER MD ORDERS. IV SITE INTACT, PATENT, AND INFUSING IVF PER MD ORDERS. SKIN INTACT, WARM TO TOUCH. REVIEWED PLAN OF CARE WITH PATIENT. UNABLE TO COMPREHEND. SAFETY MEASURES IN PLACE, CALL LIGHT WITHIN REACH. WILL CONTINUE TO MONITOR .
[2020-03-04] MEDS: BLOOD GLUCOSE MONITORING 1 DEV DEV FS SCH ×4 (07:40→21:42)
[2020-03-04 08:00] VITALS: BP 120/68
--- NOTE | 2020-03-04 09:10 | NUR ---
PATIENT LYING DOWN IN BED. CONDITION UNCHANGED. NO DISTRESS NOTED. WILL CONTINUE TO MONITOR.
[2020-03-04] MEDS: ASCORBIC ACID 500 MG TAB GT SCH (10:21)
[2020-03-04] MEDS: DEXAMETHASONE 4 MG TAB GT SCH (10:21)
[2020-03-04] MEDS: glipiZIDE ER 5 MG TABER PO SCH (10:21)
[2020-03-04] MEDS: ZINC SULF 220 MG CAP GT SCH (10:22)
[2020-03-04] MEDS: ASPIRIN 81 MG TAB.CHEW GT SCH (10:22)
[2020-03-04] MEDS: LEVOTHYROXINE 0.05 MG TAB GT SCH (10:22)
[2020-03-04] MEDS: MULTIVITAMIN 1 TAB GT SCH (10:22)
[2020-03-04] MEDS: LISINOPRIL 10 MG TAB PO SCH (10:22)
[2020-03-04] MEDS: CHOLECALCIFEROL 1,000 IU TAB GT SCH (10:22)
[2020-03-04] MEDS: LACTOBACILLUS RHAMNOSUS GG 1 EACH CAP GT SCH (10:22)
[2020-03-04] MEDS: APIXABAN 2.5 MG TAB PO SCH ×2 (10:25→21:17)
--- NOTE | 2020-03-04 10:39 | NUR ---
ASSISTED PATTERNMAKER PLASTICS IN CLEANING AND REPOSITIONING PATIENT. SCHEDULED MEDICATIONS DUE GIVEN. WILL CONTINUE TO MONITOR.
[2020-03-04] MEDS ORDERED: ALBUTEROL HFA MDI 90 MCG/ACTUATION 8 GM INH PRN (11:45)
[2020-03-04 12:00] VITALS: BP 112/70
--- NOTE | 2020-03-04 12:41 | NUR ---
PATIENT LYING DOWN IN BED . NO DISTRESS NOTED. GLUCOSE CHECKED. PATIENT TOLERATED WELL. WILL CONTINUE TO MONITOR.
--- NOTE | 2020-03-04 14:31 | NUR ---
03/04/20 RD FOLLOW UP COMPLETED PLEASE REFER TO NUTRITION ASSESSMENT UNDER CARE ACTIVITY FOR ESTIMATED NUTRITIONAL NEEDS. 1. CONTINUE GLUCERNA 1.2 @ 60 ML/HR X 24 HR -THIS PROVIDES 1728 CALORIES AND 86 GRAMS OF PROTEIN WHICH MEETS 100% OF ESTIMATED NEEDS 2. CONTINUE VITAMIN C, ZINC, AND VITAMIN D DAILY 3. CONTINUE [address] TO FOLLOW-UP 2-3 DAYS, HIGH RISK ALEE SCHAEFFER RD
[2020-03-04 16:00] VITALS: BP 136/87
[2020-03-04] MEDS: INSULIN LISPRO SLIDING SCALE 100 UNITS/ML VIAL SUBQ PRN ×2 (17:50→21:43)
--- NOTE | 2020-03-04 17:55 | NUR ---
SCHEDULED MEDICATIONS DUE GIVEN.
--- NOTE | 2020-03-04 19:00 | NUR ---
RECEIVED BEDSIDE REPORT FROM DAY SHIFT NURSE. PATIENT IS AWAKE RESPIRATION EVEN UNLABORED ON ROOM AIR. NO DISTRESS NOTED. SKIN IS WARM AND DRY. RIGHT CHEST IJ 3 LUMEN PICC LINE NOTED. PATENT AND INTACT. G-TUBE FEEDING RUNNING AT 60CC NOTED. PLAN OF CARE UP TO DATE. ALL SAFETY MEASURES IN PLACE. BED IS AT LOW POSITION. CALL LIGHT WITHIN REACH. WILL CONTINUE TO MONITOR.
--- NOTE | 2020-03-04 19:18 | NUR ---
GAVE REPORT TO CORD TIRE BUILDER NURSE FOR CONTINUITY OF CARE. PATIENT IN STABLE CONDITION.
[2020-03-04 20:00] VITALS: BP 125/76
--- NOTE | 2020-03-04 20:00 | NUR ---
INITIAL ASSESSMENT DONE. VITALS WERE TAKEN. CHECKED G-TUBE RESIDUAL. OBTAINED 5CC. WILL CONTINUE TO MONITOR.
[2020-03-04] MEDS: ATORVASTATIN 20 MG TAB PO SCH (21:16)
--- NOTE | 2020-03-04 21:17 | NUR ---
ALL SCHEDULED MEDS WERE GIVEN PER ORDER. NO ASE NOTED. WILL CONTINUE TO MONITOR.
--- NOTE | 2020-03-04 22:24 | NUR ---
CHECKED PATIENT. PATIENT IS AWAKE IN BED RESPIRATION EVEN UNLABORED ON ROOM AIR. NO DISTRESS NOTED. WILL CONTINUE TO MONITOR.
[2020-03-05] VITALS: BP 144/73
--- NOTE | 2020-03-05 00:05 | NUR ---
VITALS WERE TAKEN. PATIENT IN STABLE CONDITION. NO DISTRESS NOTED. WILL CONTINUE TO MONITOR.
--- NOTE | 2020-03-05 02:15 | NUR ---
CHECKED PATIENT. PATIENT SLEEPING RESPIRATION EVEN UNLABORED ON ROOM AIR. SATING 96%. NO DISTRESS NOTED. WILL CONTINUE TO MONITOR.
--- NOTE | 2020-03-05 03:50 | NUR ---
VITALS WERE TAKEN. PATIENT IN STABLE CONDITION. NO DISTRESS NOTED. WILL CONTINUE TO MONITOR.
[2020-03-05 04:00] VITALS: BP 146/78
[2020-03-05] MEDS: BLOOD GLUCOSE MONITORING 1 DEV DEV FS SCH ×4 (06:36→20:50)
--- NOTE | 2020-03-05 07:00 | NUR ---
RECEIVED BEDSIDE REPORT FROM REGIONAL PLANNER RN, MERLE, FOR CONTINUITY OF CARE. PATIENT IS AWAKE RESPIRATION EVEN UNLABORED ON ROOM AIR. NO DISTRESS NOTED. SKIN IS WARM AND DRY. RIGHT CHEST IJ 3 LUMEN PICC LINE NOTED WITH NS RUNNING AT 125ML/HR. PATENT AND INTACT. G-TUBE FEEDING RUNNING AT 60CC WITH H2O FLUSH OF 120 Q4H. PLAN OF CARE DISCUSSED. ALL SAFETY MEASURES IN PLACE. BED IS AT LOW POSITION. CALL LIGHT WITHIN REACH. WILL CONTINUE TO MONITOR.
--- NOTE | 2020-03-05 07:14 | NUR ---
ENDORSED PATIENT TO DAY SHIFT NURSE. PATIENT IN STABLE CONDITION.
[2020-03-05 08:00] VITALS: BP 145/79
--- NOTE | 2020-03-05 09:21 | NUR ---
PT. ADMITTED WITH LOW ABILIO SCALE AT RISK, CONTINUE TO FOLLOW PRESSURE ULCER PREVENTION INTERVENTIONS. -APPLY BARRIER CREAM BID TO GROINS AND BUTTOCKS -TURN AND REPOSITION PATIENT Q 2H -ASSESS AND MONITOR SKIN CONDITION DURING POSITION CHANGE -OFFLOAD BILATERAL HEELS BY PLACING PILLOWS UNDER CALVES AT ALL TIMES, UNLESS OTHERWISE CONTRAINDICATED -PRESSURE REDISTRIBUTION BY PLACING PILLOWS AND OFFLOADING SACRALCOCCYX -KEEP SKIN CLEAN AND DRY AT ALL TIMES.
[2020-03-05] MEDS: NACL 0.9% 1,000 ML IV SCH ×2 (09:27→21:53)
[2020-03-05] MEDS: DEXAMETHASONE 4 MG TAB GT SCH (09:28)
[2020-03-05] MEDS: ASPIRIN 81 MG TAB.CHEW GT SCH (09:28)
[2020-03-05] MEDS: LACTOBACILLUS RHAMNOSUS GG 1 EACH CAP GT SCH (09:28)
[2020-03-05] MEDS: MULTIVITAMIN 1 TAB GT SCH (09:29)
[2020-03-05] MEDS: LEVOTHYROXINE 0.05 MG TAB GT SCH (09:29)
[2020-03-05] MEDS: ASCORBIC ACID 500 MG TAB GT SCH (09:30)
[2020-03-05] MEDS: CHOLECALCIFEROL 1,000 IU TAB GT SCH (09:30)
--- NOTE | 2020-03-05 09:30 | NUR ---
MORNING MEDICATIONS GIVEN. NO SIGNS OF DISTRESS NOTED. NO RESIDUAL FROM G-TUBE NOTED. AUSCULTATED, IN PLACE, AND FLUSHES EASILY. V/S TAKEN AND IS WNL. TUBE FEEDING CHANGED. FLACC-0. WILL CONTINUE TO MONITOR.
[2020-03-05] MEDS: glipiZIDE ER 5 MG TABER PO SCH (09:31)
[2020-03-05] MEDS: ZINC SULF 220 MG CAP GT SCH (09:32)
[2020-03-05] MEDS: LISINOPRIL 10 MG TAB PO SCH (09:32)
[2020-03-05] MEDS: APIXABAN 2.5 MG TAB PO SCH ×2 (09:58→20:28)
--- NOTE | 2020-03-05 10:25 | NUR ---
SPOKE TO PROPULSION MACHINERY SERVICE ENGINEER, ANA CRISTINA, ABOUT NEW ORDER TO ADMINISTER BARRIER CREAM. CLARIFIES THAT BARRIER CREAM IS MOISTURIZER. WILL FOLLOW THROUGH.
--- NOTE | 2020-03-05 11:19 | NUR ---
COAL CAGER NOTE: Patient's Orientation Person Information Provided By BRIGID Vance [facility] Radiation Oncologist, Realtionship and Phone Number GINGER RICH [phone] Healthcare Power of Meat Stringer No Does Patient Have a POLST No Identifying Problems No Social Work Triggers Is A Social Work Consult Needed No Mandate Report Filed No Explanation Of Identifying Problems PATIENT IS A 69-YEAR-OLD FEMALE ADMITTED FOR ALOC. PATIENT HAS PMHX OF CVA, MO, DM, DYSPHAGIA, AND EPILEPSY. Admitted From Shelter Facility Shelter Facility [facility] [phone] Pre-Admission Level Of Functioning Status Total Care Prior Resources/Services Used In Last 12 Months [facility] Prior DME Shower Chair/Tub Bench Hospital Bed Wheelchair Home Support No Caregiver Issues Financial Issues No Known Financial Issue Factors/Needs SNF/NH Placement Discharge Plan Comments TENTATIVE DISCHARGE PLAN IS FOR PATIENT TO RETURN TO [facility]. [place] Plan Status Initiated
[2020-03-05 12:00] VITALS: BP 138/71
--- NOTE | 2020-03-05 12:00 | NUR ---
NO INSULIN COVERAGE FOR BLOOD GLUCOSE CHECK OF 145. NO SIGNS OF DISTRESS NOTED. V/S TAKEN AND IS WNL, WITH SAO2 OF 94%. PT. IS CHANGED, CLEANED AND TURNED. FLACC-0. WILL CONTINUE TO MONITOR.
--- NOTE | 2020-03-05 12:30 | NUR ---
SPOKE TO RT, NEMA, ABOUT PT'S PLACEMENT OF 6L O2 VIA NC. NEMA STATES THAT PT. WAS DESATURATING AT 1100 AT 77% AND WAS PLACED ON O2. PRESENT SAO2 IS AT 100%, AGREED TO LOWER O2 TO 2L AND MONITOR SAO2. WILL FOLLOW THROUGH.
--- NOTE | 2020-03-05 12:46 | NUR ---
LOWERED PT'S O2 TO 2L VIA NC. NO SIGNS OF DISTRESS NOTED. SAO2 AT 100%. WILL CONTINUE TO MONITOR.
--- NOTE | 2020-03-05 13:50 | NUR ---
SPOKE TO RT, NEMA, ABOUT PT'S IMPROVED SAO2. REMOVED O2 FROM PT. AND IS ON ROOM AIR WITH SAO2 AT 100%. WILL CONTINUE TO MONITOR.
[2020-03-05 16:00] VITALS: BP 136/69
--- NOTE | 2020-03-05 16:50 | NUR ---
V/S TAKEN AND WNL. BLOOD GLUCOSE TAKEN AND 6 UNITS OF INSULIN GIVEN FOR BLOOD GLUCOSE OF 283. NO SIGNS OF DISTRESS NOTED. PT. IS TURNED, CHANGED, AND CLEANED. WILL CONTINUE TO MONITOR.
[2020-03-05] MEDS: INSULIN LISPRO SLIDING SCALE 100 UNITS/ML VIAL SUBQ PRN ×2 (17:02→22:34)
--- NOTE | 2020-03-05 17:50 | NUR ---
RECEIVED REPORT FROM CHARGE NURSE, LILIYA, THAT PT. IS POSITIVE COVID-19. REPORTED TO DR. RUFFIN. WILL CONTINUE TO MONITOR.
--- NOTE | 2020-03-05 19:00 | NUR ---
ENDORSED TO REAL ESTATE OFFICE MANAGER RN FOR CONTINUITY OF CARE.
--- NOTE | 2020-03-05 19:15 | NUR ---
RECEIVED PT FROM DAY SHIFT NURSE AT BED SIDE PT IS AOX1 APHASIC ON TELEMETRY SR CENTRAL LINE ON RT SUBCLAVIA INFUSING WELL, NOT SOB NOTED G TUBE FEEDING WELL TOLERATED , PT REPOSITIONED INITIAL ASSESSMENT DONE.
[2020-03-05 20:00] VITALS: BP 138/80
[2020-03-05] MEDS: ATORVASTATIN 20 MG TAB PO SCH (20:27)
--- NOTE | 2020-03-05 21:30 | NUR ---
BLOOD SUGAR TEST 233 COVERAGE WITH HUMALOG SUBQ 4 UNITS SUBQ FOLLOW PROTOCOL
--- NOTE | 2020-03-05 23:30 | NUR ---
PT SLEEPING WELL ON TELE SR REPOSITIONED Q2H NOT DISTRESS NOTED PT COVID 19 POSITIVE, ALL PROTOCOL FOLLOW ORDER .
[2020-03-06] VITALS: BP 136/79
--- NOTE | 2020-03-06 03:43 | NUR ---
PT HAS BEEN MO;NITORING CLOSE REPOSITIONED Q2H ON TELEMETRY SR, G TUBE FEEDING WELL TOLERATED NOT SOB NOTED
[2020-03-06 04:00] VITALS: BP 131/78
--- NOTE | 2020-03-06 06:00 | NUR ---
BLOOD SUGAR TEST 134 NOT COVERAGE , PT LINEN CHANGED NOT DISTRESS NO;NAN ON TELE SR
--- NOTE | 2020-03-06 06:42 | NUR ---
PT WILL BE ENDORSED TO DAY SHIFT NURSE FOR CONTINUE OF CARE
--- NOTE | 2020-03-06 07:00 | NUR ---
RECEIVED REPORT FROM 8TH GRADE TEACHER NURSE REGARDING PATIENT PLAN OF CARE. PATIENT STABILIZED T THE MOMENT, IN NO SIGNS AND SYMPTOMS OF RESPIRATORY DISTRESS. GTUBE FEEDING GLUCERNA RUNNING AT 60ML/HR. FALL PRECAUTIONS AND DROPLET PRECAUTIONS FOLLOWED. ALL NEEDS MET, CALL LIGHT WITHIN REACH. WILL CONTINUE TO MONITOR.
[2020-03-06] MEDS: BLOOD GLUCOSE MONITORING 1 DEV DEV FS SCH ×3 (07:30→16:30)
[2020-03-06 08:00] VITALS: BP 152/90
--- NOTE | 2020-03-06 08:00 | NUR ---
ROUNDED ON PT, IN NO S/S RESPIRATORY DISTRESS, NO COMPLAINTS OF PAIN. GTUBE FEEDING RUNNING AT 60ML/HR. REPOSITIONED PATIENT COMFORTABLY. ALL NEEDS MET, CALL LIGHT WITHIN REACH.
[2020-03-06] MEDS: LACTOBACILLUS RHAMNOSUS GG 1 EACH CAP GT SCH (08:08)
[2020-03-06] MEDS: ZINC SULF 220 MG CAP GT SCH (08:08)
[2020-03-06] MEDS: glipiZIDE ER 5 MG TABER PO SCH (08:08)
--- NOTE | 2020-03-06 08:08 | NUR ---
MEDICATIONS CRUSHED AND GIVEN VIA GTUBE , GASTRIC RESIDUAL: 0 ML. TOLERATED WELL. IN NO S/S RESPIRATORY DISTRESS, NO C/O OF PAIN AT THIS TIME. ALL NEEDS MET, CALL LIGHT WITHIN REACH. WILL CONTINUE TO MONITOR.
[2020-03-06] MEDS: LEVOTHYROXINE 0.05 MG TAB GT SCH (08:09)
[2020-03-06] MEDS: ASPIRIN 81 MG TAB.CHEW GT SCH (08:09)
[2020-03-06] MEDS: ASCORBIC ACID 500 MG TAB GT SCH (08:09)
[2020-03-06] MEDS: LISINOPRIL 10 MG TAB PO SCH (08:09)
[2020-03-06] MEDS: MULTIVITAMIN 1 TAB GT SCH (08:09)
[2020-03-06] MEDS: DEXAMETHASONE 4 MG TAB GT SCH (08:10)
[2020-03-06] MEDS: CHOLECALCIFEROL 1,000 IU TAB GT SCH (08:10)
[2020-03-06] MEDS: APIXABAN 2.5 MG TAB PO SCH (08:31)
[2020-03-06] MEDS: INSULIN LISPRO SLIDING SCALE 100 UNITS/ML VIAL SUBQ PRN (08:32)
--- NOTE | 2020-03-06 08:32 | NUR ---
GIVEN ELIQUIS CRUSHED AND VIA GTUBE. GASTRIC RESIDUAL OF 0ML. FINGERSTICK: 182. GIVEN 2 UNITS OF HUMALOG SUBQ IN THE LEFT UPPER ARM. PATIENT TOLERATED WELL. WILL CONTINUE TO MONITOR.
[2020-03-06 10:40] LABS: BASOPHILS % (AUTO) 0.2 % (0.0-2.0); EOSINOPHILS # (AUTO) 0.1 K/uL (0-0.4); EOSINOPHILS % (AUTO) 0.8 % (0.0-4.0); HEMATOCRIT 30.6 % (36-48); HEMOGLOBIN 9.6 g/dL (12.0-16.0); LYMPHOCYTES # (AUTO) 0.7 K/uL (2.5-16.5); LYMPHOCYTES % (AUTO) 6.5 % (20.5-51.1); MEAN CORPUSCULAR HEMOGLOBIN 28 pg (27-31); MEAN CORPUSCULAR HGB CONC 31 g/dL (33-37); MONOCYTES # (AUTO) 0.8 K/uL (0.8-1.0); MONOCYTES % (AUTO) 7.1 % (1.7-9.3); NEUTROPHILS # (AUTO) 9.6 K/uL (1.8-7.7); NEUTROPHILS % (AUTO) 85.4 % (42.2-75.2); PLATELET COUNT (AUTO) 270 K/uL (140-450); RED BLOOD CELL COUNT(AUTO) 3.48 MIL/uL (4.20-5.40); RED CELL DISTRIBUTION WIDTH 14.6 % (11.6-13.7); WHITE BLOOD COUNT (AUTO) 11.2 K/uL (4.8-10.8)
[2020-03-06 10:49] LABS: ANION GAP 15.1 (8-16); CARBON DIOXIDE 26.6 mmol/L (21-32); CREATININE 0.7 mg/dL (0.6-1.3); POTASSIUM 3.7 mmol/L (3.5-5.1)
[2020-03-06] MEDS: NACL 0.9% 1,000 ML IV SCH (11:13)
--- NOTE | 2020-03-06 11:14 | NUR ---
BLOOD SUGAR CHECKED: 131. NO INSULIN COVERAGE NEEDED. PATIENT IS IN NO APPARENT DISTRESS. IVF AND GTUBE FEEDING RUNNING WELL. WILL CONTINUE TO MONITOR.
[2020-03-06 12:00] VITALS: BP_SYST 118; BP_SYST 144; BP_DIAS 51; BP_DIAS 79
[2020-03-06 13:52] VITALS: BP 144/79
--- NOTE | 2020-03-06 14:40 | NUR ---
PATIENT ASLEEP. NO SIGNS OF DISTRESS NOTED. BED IN LOW POSITION. CALL LIGHT IS WITHIN REACH. WILL CONTINUE TO MONITOR.
--- NOTE | 2020-03-06 15:08 | NUR ---
EQUIPMENT INSTALLER TIME IS 1600, EMR TRANSPORT BACK TO [facility].
--- NOTE | 2020-03-06 15:11 | NUR ---
CALLED [facility] FOR REPORT 3X. NOBODY IS ANSWERING THE CALL. WILL TRY AGAIN.
--- NOTE | 2020-03-06 15:21 | NUR ---
DISCONTINUED IJ SITE. GUSHING BLOOD FLOWING OUT AT THE SITE. APPLIED PRESSURE FOR 30 MINUTES TO STOP THE CONTINUOUS BLEEDING. MADE SURE PATIENT IS CALM. PATIENT TOLERATED WELL.
[2020-03-06 16:00] VITALS: BP 151/85
--- NOTE | 2020-03-06 16:22 | NUR ---
TRIED CALLING [facility] 2X, NO ANSWER. [facility]MR [facility]AW OPERATOR IS IN UNIT. WILL TRY TO CALL AGAIN. PATIENT WILL BE IN ROOM 119B
--- NOTE | 2020-03-06 16:25 | NUR ---
PATIENT IS UP TO DATE WITH VACCINATIONS. [facility] STILL NOT ANSWERING THE CALL FOR REPORT.
--- NOTE | 2020-03-06 16:50 | NUR ---
DISCHARGE PATIENT VIA GURNEY WITH [facility] TRANPORT PERSONNEL. ID BAND REMOVED. PATIENT IS IN STABLE CONDITION.
--- NOTE | 2020-03-06 17:26 | NUR ---
WAS UNABLE TO GIVE REPORT TO A NURSE/GRAIN SHIPPER AT [facility] - NO ONE IS ANSWERING MY PHONE CALL. CHARGE NURSE AWARE.
== END 2020-03-06 16:45 | DRG 720 ==
LOC: EEVIPCON 18:15 → MED 18:15 → MTU 20:07
PROVIDERS: ADMIT Family Medicine; ATTEND Family Medicine
DX: A41.89 Other specified sepsis (principal); U07.1 COVID-19; J96.01 Acute respiratory failure with hypoxia; I63.9 Cerebral infarction, unspecified; E43 Unspecified severe protein-calorie malnutrition; G82.50 Quadriplegia, unspecified; G93.41 Metabolic encephalopathy; G30.9 Alzheimer's disease, unspecified; R13.10 Dysphagia, unspecified; F02.80 Dementia in other diseases classified elsewhere, unspecified severity, without behavioral disturbance, psychotic disturbance, mood disturbance, and anxiety; R65.20 Severe sepsis without septic shock; Z68.23 Body mass index [BMI] 23.0-23.9, adult; E03.9 Hypothyroidism, unspecified; E87.6 Hypokalemia; G40.909 Epilepsy, unspecified, not intractable, without status epilepticus; I10 Essential (primary) hypertension; J12.89 Other viral pneumonia; K21.9 Gastro-esophageal reflux disease without esophagitis; M81.0 Age-related osteoporosis without current pathological fracture; Z96.642 Presence of left artificial hip joint; J44.9 Chronic obstructive pulmonary disease, unspecified; E11.65 Type 2 diabetes mellitus with hyperglycemia; Z86.14 Personal history of Methicillin resistant Staphylococcus aureus infection; Z93.1 Gastrostomy status; Z88.8 Allergy status to other drugs, medicaments and biological substances; Z79.84 Long term (current) use of oral hypoglycemic drugs; Z79.01 Long term (current) use of anticoagulants; Z79.899 Other long term (current) drug therapy
CPT/HCPCS: 36415; 70450; 71045; 80048; 80053; 80202; 80299; 81001; 82140; 82150; 82550; 82728; 82803; 82948; 83036; 83605; 83615; 83690; 83735; 83880; 84100; 84439; 84443; 84484; 85025; 85379; 85384; 85610; 85651; 85730; 86140; 87040; 87081; 87086; 93005; 96365; 96366; 96367; 97161-GP; 99291; C1758; J1815; J2543; J3370; J7030; J7060; Q0092; U0003-CS

== ENCOUNTER 2022-03-25 14:12 | Emergency (ER) | payer OTHER, MEDICARE ==
[~2022-03-25] VITALS: Ht 160 cm; Wt 83.9 kg
[~2022-03-25 14:12] MED LIST changes: +APIX2.5 GT; -APIX2.5 PO; +ASCO500T95 GT; +CHOL100013 GT; -DEC4 PO; +HUMSLIDE SUBQ; -INV1I IV; -LACT10CA1 GT; +LANTUS SUBQ; +PIPE1SOL IV; -ROC2I IV; +ZINC220C28 PO
[2022-03-25 14:26] VITALS: BP 135/83
[2022-03-25] MEDS ORDERED: PANTOPRAZOLE 40 MG INJ VIAL IVP ONE (14:35)
[2022-03-25] MEDS ORDERED: NACL 0.9% 1,000 ML IV SCH (14:35)
[2022-03-25] MEDS ORDERED: ONDANSETRON 4 MG/2 ML VIAL IVP ONE (14:35)
--- NOTE | 2022-03-25 14:50 | NUR ---
attempted multiple iv sticks, no success, dr mendez made aware+
--- NOTE | 2022-03-25 15:00 | NUR ---
71 Y/O FEMALE BIAB FROM [facility], PER EMS PT VOMITED BLOOD X1 TIME, PER EMS FACILITY STATED SHE HAD APPROXIMATELY 300CC OF COFFEE GROUND EMESIS, NONE NOTED AT THE TIME. GT IN PLACE, PT IS NON-VERBAL. ON O2 3LPM NC FROM FACILITY [facility] PMH:RESPIRATORY FAILURE, DM2, COPD, CKD, HYPOTHYROID, HDL, CVA, DYSPHAGIA
[2022-03-25 16:00] LABS: BASOPHILS # (AUTO) 0.1 K/uL (0.00-0.22); BASOPHILS % (AUTO) 0.7 % (0.0-2.0); EOSINOPHILS # (AUTO) 0.3 K/uL (0-0.4); EOSINOPHILS % (AUTO) 2.3 % (0.0-4.0); HEMATOCRIT 34.3 % (36-48); HEMOGLOBIN 10.7 g/dL (12.0-16.0); LYMPHOCYTES # (AUTO) 1.5 K/uL (2.5-16.5); LYMPHOCYTES % (AUTO) 11.9 % (20.5-51.1); MEAN CORPUSCULAR HEMOGLOBIN 28 pg (27-31); MEAN CORPUSCULAR HGB CONC 31 g/dL (33-37); MEAN CORPUSCULAR VOLUME 90.2 fL (80-94); MONOCYTES # (AUTO) 1.2 K/uL (0.8-1.0); MONOCYTES % (AUTO) 9.5 % (1.7-9.3); NEUTROPHILS # (AUTO) 9.7 K/uL (1.8-7.7); NEUTROPHILS % (AUTO) 75.6 % (42.2-75.2); PLATELET COUNT (AUTO) 500 K/uL (140-450); RED BLOOD CELL COUNT(AUTO) 3.81 MIL/uL (4.20-5.40); RED CELL DISTRIBUTION WIDTH 16.6 % (11.6-13.7); WHITE BLOOD COUNT (AUTO) 12.9 K/uL (4.8-10.8)
[2022-03-25 16:40] LABS: ALBUMIN 2.5 g/dL (3.4-5.0); ANION GAP 16.5 (8-16); CARBON DIOXIDE 25.7 mmol/L (21-32); CREATININE 1.7 mg/dL (0.6-1.3); POTASSIUM 4.2 mmol/L (3.5-5.1)
[2022-03-25 16:46] LABS: PROTHROMBIN TIME 11.4 secs (10.8-13.4)
[2022-03-25 17:38] LABS: TOTAL BILIRUBIN 0.2 mg/dL (0.0-1.0)
--- NOTE | 2022-03-25 19:00 | NUR ---
[facility] CALLED FOR TRANSPORT ETA IS 2300H
--- NOTE | 2022-03-25 20:13 | NUR ---
LAB AT BEDSIDE
[2022-03-25 20:28] LABS: HEMATOCRIT 31.8 % (36-48); HEMOGLOBIN 9.7 g/dL (12.0-16.0)
[2022-03-25 20:40] VITALS: BP 123/78
--- NOTE | 2022-03-25 20:49 | NUR ---
GAVE REPORT TO QUANG ALMAGUER OF [facility] REGARDING PT STATUS, TRANSFER OF CARE AT THIS TIME
--- NOTE | 2022-03-25 20:51 | NUR ---
Patient discharged with v/s stable. Written and verbal after care instructions given and explained. Patient verbalized understanding. Ambulance Transport with to senior living. All questions addressed prior to discharge. Advised to follow up with PMD. REPORT GIVEN TO QUANG ALMAGUER, ETA 5-10 MIN
== END 2022-03-25 20:49 | disposition home or self-care (01) ==
LOC: MED 14:12
DX: K29.70 Gastritis, unspecified, without bleeding (principal); Z20.822 Contact with and (suspected) exposure to COVID-19; J44.9 Chronic obstructive pulmonary disease, unspecified; E11.9 Type 2 diabetes mellitus without complications; F03.90 Unspecified dementia, unspecified severity, without behavioral disturbance, psychotic disturbance, mood disturbance, and anxiety; K21.9 Gastro-esophageal reflux disease without esophagitis; I10 Essential (primary) hypertension; E03.9 Hypothyroidism, unspecified; Z86.73 Personal history of transient ischemic attack (TIA), and cerebral infarction without residual deficits; Z98.890 Other specified postprocedural states; Z79.899 Other long term (current) drug therapy; Z79.01 Long term (current) use of anticoagulants; Z79.4 Long term (current) use of insulin
CPT/HCPCS: 36415; 74176; 80053; 83605; 83690; 85018; 85025; 85610; 85730; 86886; 86900; 86901; 87040; 87426; 96361; 96374; 96375; 99285; C9113; J2405; J7030

== ENCOUNTER 2022-03-29 04:38 | Inpatient (IN) | payer OTHER, MEDICARE ==
[2022-03-29] VITALS (13 sets, daily range): BP systolic 76–156; BP diastolic 54–99
[~2022-03-29] VITALS: Ht 154.9 cm; Wt 68.7 kg
--- NOTE | 2022-03-29 04:40 | NUR ---
RT AT BEDSIDE
--- NOTE | 2022-03-29 04:40 | NUR ---
72 Y/O FEMALE BIB ALS from [facility]. C/O ALOC x today. Per ems, staff found patient ALOC and oxygen sat 92 % on oxygen canula 2 L/min, no medication given at the scence, BS 501, on Mask 15 L/min, Oxygen sat 95 %. pt is non ambulatory. a/ox0, gcs-7, pt is normally able to communicate by grunting; tachypnic and shallow with rhonchi; skin is dusky/cold/dry. tachycardia. pt has g-tube. PMHx: DM, COPD, Epilepsy, Hypothyroidisam, Kidney Failure, Dysphagia nka
--- NOTE | 2022-03-29 04:40 | NUR ---
LABS OBTAINED WITH IV INSERTION
--- NOTE | 2022-03-29 04:42 | NUR ---
PT BROUGHT TO BED 4 VIA [facility]
--- NOTE | 2022-03-29 04:44 | NUR ---
COVID-19 and Flu swabs collected and sent to lab.
[2022-03-29] MEDS ORDERED: NACL 0.9% 1,000 ML IV ONE (05:00)
[2022-03-29] MEDS ORDERED: PIPERACILLIN/TAZOBACTAM 3.375 GM in DEXTROSE 5% 50 ML IV ONE (05:05)
[2022-03-29] MEDS ORDERED: LEVALBUTEROL 0.63 MG/3 ML NEBU INH ONE (05:05)
--- NOTE | 2022-03-29 05:06 | NUR ---
XRAY AT BEDSIDE
[2022-03-29] MEDS ORDERED: PIPERACILLIN/TAZOBACTAM 3.375 GM VIAL IV ONE (05:09)
--- NOTE | 2022-03-29 05:09 | NUR ---
Med-Rec reviewed.
[2022-03-29] MEDS ORDERED: ACETAMINOPHEN 650 MG SUPP RC ONE ×2 (05:32→06:00)
[2022-03-29 06:06] LABS: BASOPHILS # (AUTO) 0.1 K/uL (0.00-0.22); BASOPHILS % (AUTO) 0.5 % (0.0-2.0); EOSINOPHILS # (AUTO) 0.3 K/uL (0-0.4); EOSINOPHILS % (AUTO) 1.8 % (0.0-4.0); HEMATOCRIT 37.7 % (36-48); HEMOGLOBIN 11.2 g/dL (12.0-16.0); LYMPHOCYTES # (AUTO) 1.9 K/uL (2.5-16.5); LYMPHOCYTES % (AUTO) 9.6 % (20.5-51.1); MEAN CORPUSCULAR HEMOGLOBIN 28 pg (27-31); MEAN CORPUSCULAR HGB CONC 30 g/dL (33-37); MEAN CORPUSCULAR VOLUME 93.4 fL (80-94); MONOCYTES # (AUTO) 1.5 K/uL (0.8-1.0); MONOCYTES % (AUTO) 7.5 % (1.7-9.3); NEUTROPHILS # (AUTO) 15.8 K/uL (1.8-7.7); NEUTROPHILS % (AUTO) 80.6 % (42.2-75.2); PLATELET COUNT (AUTO) 417 K/uL (140-450); RED BLOOD CELL COUNT(AUTO) 4.04 MIL/uL (4.20-5.40); RED CELL DISTRIBUTION WIDTH 16.5 % (11.6-13.7); WHITE BLOOD COUNT (AUTO) 19.6 K/uL (4.8-10.8)
[2022-03-29 06:17] LABS: APPEARANCE,URINE CLOUDY (CLEAR); BILIRUBIN,URINE NEGATIVE (NEGATIVE); BLOOD, URINE 3+ (NEGATIVE); COLOR,URINE OTHER (YELLOW); LEUKOCYTE ESTERASE ,URINE 2+ (NEGATIVE); NITRITE, URINE NEGATIVE (NEGATIVE); PH,URINE 6.5 (5.0-9.0); UGLUCOSE 3+ (NEGATIVE)
[2022-03-29 06:58] LABS: ALBUMIN 2.3 g/dL (3.4-5.0); ANION GAP 14.6 (8-16); ASPARTATE AMINOTRANSFERASE 19 U/L (15-37); CARBON DIOXIDE 28.1 mmol/L (21-32); CHLORIDE 115 mmol/L (98-107); CREATININE 2.1 mg/dL (0.6-1.3); POTASSIUM 4.7 mmol/L (3.5-5.1); SODIUM SERUM 153 mmol/L (136-145); TOTAL BILIRUBIN 0.2 mg/dL (0.0-1.0)
[2022-03-29 06:59] LABS: LIPASE 2389 U/L (73-393)
[2022-03-29 07:00] LABS: RBC,URINE 20-50 /HPF (0-5); WBC,URINE 16-25 (MOD) /HPF (0-5)
[2022-03-29] MEDS ORDERED: DEXAMETHASONE 10 MG/ML VIAL IVP ONE (07:05)
--- NOTE | 2022-03-29 07:21 | NUR ---
Report received from TRIPP Swain for transfer of care.
--- NOTE | 2022-03-29 07:23 | NUR ---
Pt report given to MONIQUE SANDERS. Transfer of care at this time.
[2022-03-29 07:27] LABS: GLUCOSE 515 mg/dL (74-106)
[2022-03-29 07:28] LABS: UREA NITROGEN, BLOOD 71 mg/dL (7-18)
[2022-03-29] MEDS ORDERED: DEXT 5% /NACL 0.9% 1,000 ML IV SCH (07:30)
[2022-03-29] MEDS ORDERED: ONDANSETRON 4 MG/2 ML VIAL IVP PRN (07:30)
[2022-03-29] MEDS ORDERED: DEXTROSE 50% 50 ML SYR IVP PRN (07:35)
--- NOTE | 2022-03-29 08:05 | NUR ---
Dr. Fonseca evaluating patient at bedside.
[2022-03-29] MEDS ORDERED: INSULIN LANTUS 100 UNITS/ML 10 ML VIAL SUBQ SCH ×3 (08:37→21:00)
--- NOTE | 2022-03-29 08:40 | NUR ---
PT TAKEN OFF OF BIPAP AND PLACED ON 6L NC. PT BEGAN VOMITING LARGE AMOUNT OF DARK BROWN. NURSE AWARE. SPO2 95% AT THIS TIME. WILL KEEP PT OFF OF BIPAP DUE TO CONTRAINDICATIONS.
[2022-03-29] MEDS: ONDANSETRON 4 MG/2 ML VIAL IVP PRN (08:42)
--- NOTE | 2022-03-29 08:50 | NUR ---
Patient vomited 400ml of coffee ground emesis. Patient was given PRN Zofran as ordered. Patient was made clean and dry, diaper care was rendered also. Will notify Dr. Iniguez.
[2022-03-29] MEDS ORDERED: CRUSHER, PILL MC ONE (09:07)
--- NOTE | 2022-03-29 09:49 | NUR ---
Dr. Iniguez was paged and notified of coffee ground emesis. No new orders at this time.
[2022-03-29] MEDS ORDERED: cefTRIAXone 1,000 MG VIAL ONE (10:23)
--- NOTE | 2022-03-29 10:40 | NUR ---
Patient went to imaging via [facility] with a nurse.
--- NOTE | 2022-03-29 11:26 | NUR ---
DC PLANNING: THE PATIENT PRESENTED FROM [facility] WITH C/O SOB AND ALOC. H/O PERSISTENT VEGETATIVE STATE, CA, CVA, COPD, DM DEMENTIA, GERD, HTN, THYROID DISEASE AND CARDIAC DISORDERS. G TUBE IN PLACE, PATIENT WITH T-MAX OF 103.7, PLACED ON BIPAP AT 15 L. B/P 156/99, WBC'S 19.1, LACTIC ACID 2.7, GLUCOSE 515, BNP 275, LIPASE 2389, NA+ 153, CR. 2.1. UA POSITIVE, HR 136, CXR SHOWS PULMONARY OPACITIES AND INFILTRATES. GIVEN TYLENOL, IVF'S, ZOSYN AND DUONEBS IN ED. ORDERS FOR CONSULTS WITH ID, NEPHRO AND PULMONOLOGY. COVID RAPID POSITIVE. PATIENT ON DECADRON, ROCEPHIN IV, DUONEBS AND IVF'S. PATIENT TAKEN OFF OF BIPAP THIS MORNING AND PLACED ON 6L NC, VOMITING LARGE AMOUNT DARK BROWN LIQUID. HADLEY SPOKE WITH THE PATIENTS HILARIO MILES BY PHONE, INTRODUCED SELF LANDING SUPPORT SPECIALIST. CONFIRMED THAT THE PLAN IS FOR PATIENT TO RETURN TO [facility], CONVERSATION OCCURRED BEFORE CM WAS AWARE OF COVID POSITIVE RESULT, PATIENT MAY NEED PLACEMENT AT DIFFERENT SNF IN THE INTERIM. CM WILL FOLLOW. Addendum: 03/31/22 at 1123 by Conchita Walters CM DC PLANNING: PATIENT TO BE DOWNGRADED TO TELEMETRY TODAY. REMAINS ON DECADRON AND ROCEPHIN, LEVOPHED GTT ON HOLD B/P IS STABLE. NGT NO LONGER TO SUCTION, PATIENT ON RA, WBC'S 15.6. CM SPOKE WITH THE PATIENTS SON GINGER BY PHONE TO LET HIM KNOW THAT NIGEL BEAVER CANNOT ACCEPT HIS MOTHER BACK UNTIL 10 DAYS HAVE PASSED SINCE COVID POSITIVE RESULT. NIGEL BEAVER HAS A SISTER FACILITY IN [place] CALLED [facility] ([phone]), [facility] IS ALSO CONTRACTED WITH THE PATIENTS [facility] INSURANCE. CM WILL TRY TO PLACE THE PATIENT AT [facility] WHEN SHE'S CLEARED FOR DISCHARGE, IF THEY ARE UNABLE TO ACCOMMODATE WILL SEND TO [facility] SNF. PATIENTS SON IN AGREEMENT WITH PLAN, CM WILL FOLLOW.
--- NOTE | 2022-03-29 11:30 | NUR ---
Dr. Smalls Surveillance Systems Analyst cleared patient for PICC line insertion.
--- NOTE | 2022-03-29 11:32 | NUR ---
Spoke to Yash, PICC Line nurse to inform him of clearance from Nephrology for PICC line insertion.
--- NOTE | 2022-03-29 11:39 | NUR ---
Spoke to Mateo Jenkins, patient son, to obtain vernal consent for PICC/Mid line insertion. Obtained consent via telephone witnessed by 2 nurses. Consent in chart.
[2022-03-29] MEDS: BLOOD GLUCOSE MONITORING 1 DEV DEV FS SCH ×3 (11:49→20:48)
--- NOTE | 2022-03-29 12:00 | NUR ---
Patients blood sugar is 559. Per order called Dr. Iniguez to inform him of blood sugar. No orders given at this time.
--- NOTE | 2022-03-29 12:51 | NUR ---
Dr. Iniguez evaluating patient at bedside. Informed him of patients blood sugar. Per MD "he will input orders."
--- NOTE | 2022-03-29 14:10 | NUR ---
Patient will be admitted to care of Dr. Iniguez. Admited to ICU. Will go to room 1. Belongings list completed. Report to December, PROTECTIVE SIGNAL REPAIRER.
--- NOTE | 2022-03-29 14:11 | NUR ---
The patient's care was reviewed and supervised by Haydee Armstrong RN.
--- NOTE | 2022-03-29 14:22 | NUR ---
PATIENT HAS BEEN SCREENED AND CATEGORIZED HIGH NUTRITION RISK. PATIENT WILL BE SEEN WITHIN 1-2 DAYS OF ADMISSION. / MENDEZ PAT[address]
--- NOTE | 2022-03-29 14:30 | NUR ---
RECEIVED PATIENT FROM ED. REPORT RECEIVED.
[2022-03-29] MEDS: IPRATROPIUM 0.02% 0.5 MG/2.5 ML NEBU INH SCH ×3 (14:41→22:40)
[2022-03-29] MEDS ORDERED: INSULIN REGULAR, HUMAN 100 UNIT/ML VIAL IVP ONE (15:25)
[2022-03-29] MEDS: NACL 0.45% 1,000 ML IV SCH (15:40)
[2022-03-29] MEDS ORDERED: INSULIN LISPRO 100 UNITS/ML VIAL SUBQ SCH (15:45)
[2022-03-29] MEDS ORDERED: NOREPINEPHRINE 4 MG in DEXTROSE 5% 250 ML IV PRN (17:55)
[2022-03-29] MEDS: INSULIN LISPRO 100 UNITS/ML VIAL SUBQ SCH ×2 (18:04→20:51)
--- NOTE | 2022-03-29 19:30 | NUR ---
REPORT GIVEN TO TRIPP GOMES.
--- NOTE | 2022-03-29 19:33 | NUR ---
Received report on pt. Pt awake, nonverbal, does not follow commands, does not track. Pt in no signs of pain or distress, on 4L O2 via nasal cannula. PICC line NORBERTO with IVF infusing. GT noted with scant drainage around GT site. Tracy in place draining yellow urine to gravity.
[2022-03-29] MEDS: INSULIN LANTUS 100 UNITS/ML 10 ML VIAL SUBQ SCH (20:50)
--- NOTE | 2022-03-29 21:10 | NUR ---
Pt noted with BP 78/57 MAP 64, started levophed drip 2 mcg/min.
[2022-03-30] VITALS (24 sets, daily range): BP systolic 84–135; BP diastolic 55–86
[2022-03-30] MEDS: NACL 0.45% 1,000 ML IV SCH ×3 (00:50→20:00)
[2022-03-30] MEDS: IPRATROPIUM 0.02% 0.5 MG/2.5 ML NEBU INH SCH ×4 (02:52→19:51)
[2022-03-30] MEDS: LEVOTHYROXINE 0.05 MG TAB GT SCH (06:11)
[2022-03-30 07:15] LABS: CARBON DIOXIDE 24.3 mmol/L (21-32); CHLORIDE 123 mmol/L (98-107); GLUCOSE 313 mg/dL (74-106); POTASSIUM 4.3 mmol/L (3.5-5.1); UREA NITROGEN, BLOOD 68 mg/dL (7-18)
[2022-03-30 07:16] LABS: ASPARTATE AMINOTRANSFERASE 13 U/L (15-37); CREATININE 1.6 mg/dL (0.6-1.3)
--- NOTE | 2022-03-30 07:25 | NUR ---
Change of shift report received from Cecilia RN met pt, eyes open to her name, moves only right upper extremities no movement noted in other extremities, resting comfortably vitals signs stable ongoing Levophed drip @0.05mcg/min turned off, no sign of shortness of breadth nor distress noted oxygen 2ltres O2 SAT 97% oral/sanderson care done and pt reporistioned for comfort will continue to monitor and treat as per care plan.
[2022-03-30 07:37] LABS: MEAN CORPUSCULAR HGB CONC 29 g/dL (33-37); RED BLOOD CELL COUNT(AUTO) 3.25 MIL/uL (4.20-5.40)
[2022-03-30 07:38] LABS: BASOPHILS # (AUTO) 0.1 K/uL (0.00-0.22); BASOPHILS % (AUTO) 0.3 % (0.0-2.0); MONOCYTES # (AUTO) 0.8 K/uL (0.8-1.0)
[2022-03-30 07:42] LABS: SODIUM SERUM 157 mmol/L (136-145)
[2022-03-30 07:43] LABS: WHITE BLOOD COUNT (AUTO) 17.6 K/uL (4.8-10.8)
[2022-03-30 07:44] LABS: HEMATOCRIT 30.5 % (36-48); MEAN CORPUSCULAR HEMOGLOBIN 28 pg (27-31); MEAN CORPUSCULAR VOLUME 93.9 fL (80-94); PLATELET COUNT (AUTO) 301 K/uL (140-450); RED CELL DISTRIBUTION WIDTH 16.4 % (11.6-13.7)
[2022-03-30 07:49] LABS: LYMPHOCYTES # (AUTO) 0.8 K/uL (2.5-16.5); LYMPHOCYTES % (AUTO) 4.8 % (20.5-51.1); MONOCYTES % (AUTO) 4.8 % (1.7-9.3); NEUTROPHILS % (AUTO) 90.1 % (42.2-75.2)
[2022-03-30 08:39] LABS: MAGNESIUM 3.8 mg/dL (1.8-2.4)
--- NOTE | 2022-03-30 09:25 | NUR ---
digital content marketing manager from [facility] called for updates on pt's condition and ongoing treatments.
--- NOTE | 2022-03-30 09:38 | NUR ---
Pt's daughter Howie cAosta called updates given on pt's condition ongoing treatments mentioned to her that pt is COVID positive and she was surprised said "AGAIN" encouraged her to call back again.
[2022-03-30 10:22] LABS: TOTAL BILIRUBIN 0.1 mg/dL (0.0-1.0)
[2022-03-30] MEDS: BLOOD GLUCOSE MONITORING 1 DEV DEV FS SCH ×2 (10:33→17:25)
[2022-03-30] MEDS: INSULIN LANTUS 100 UNITS/ML 10 ML VIAL SUBQ SCH ×2 (10:36→20:40)
[2022-03-30] MEDS: INSULIN LISPRO SLIDING SCALE 100 UNITS/ML VIAL SUBQ PRN ×3 (10:37→17:27)
--- NOTE | 2022-03-30 12:35 | NUR ---
Dr Gunter was here updates on pt's condition mentioned elevated Sodium serum 157 order received for FREE WATER 200CC Q4HR.
--- NOTE | 2022-03-30 13:15 | NUR ---
Dr Iniguez saw pt updates on pt's coindition mentioned about the coffee groound emesis as per report received but nothing coming out from GT asked if MD considering GI consult and he said "no" NO new order received.
--- NOTE | 2022-03-30 13:53 | NUR ---
03/30/22 RD INITIAL ASSESSMENT COMPLETED PLEASE REFER TO NUTRITION ASSESSMENT UNDER CARE ACTIVITY FOR ESTIMATED NUTRITIONAL NEEDS. 1. WHEN/IF MEDICALLY APPROPRIATE, START ON NEPRO CARBSTEADY @ 35ML/HR -FWF: 200ML Q4H OR PER MD -WILL PROVIDE 100% OF ESTIMATED NUTRIENT NEEDS 2. MONITOR NUTRITION-RELATED LAB VALUES 3. RD TO FOLLOW-UP 2-3 DAYS, HIGH RISK REVIEWED BY MENDEZ PATEL RD
--- NOTE | 2022-03-30 15:05 | NUR ---
SBAR report given to HARRIS ALMAGUER for continuity of care vitals signs stable as at this time no changes in care plan and pt's condition.
--- NOTE | 2022-03-30 17:51 | NUR ---
SEEN AND EXAMINED BY DR. SEARS. GAVE UPDATES TO DR. SEARS. NO NEW ORDERS.
--- NOTE | 2022-03-30 19:05 | NUR ---
ENDORSED TO INVESTMENT BROKER NURSE ELISEO FOR CONTINUITY OF CARE.
--- NOTE | 2022-03-30 19:10 | NUR ---
Received report on pt. Pt drowsy, arousable to name and touch, nonverbal, does not track or follow commands. Pt in no signs of pain or distress on 2L O2 via nasal cannula. IV fluid infusing to right UA PICC line. Levophed off some time during day shift, BP still labile but MAP has been 65 or greater. GT clamped, small amount green residual noted, per MD order, no tube feeding ordered except for water flushes. Tracy in place draining urine to gravity. No BM noted. Afebrile.
--- NOTE | 2022-03-30 19:58 | NUR ---
Pt O2 titrated to 1L O2 nasal cannula by RT, tolerating well, saturating 98%.
[2022-03-31] VITALS (15 sets, daily range): BP systolic 118–155; BP diastolic 64–86
[2022-03-31] MEDS: BLOOD GLUCOSE MONITORING 1 DEV DEV FS SCH ×4 (00:10→17:19)
--- NOTE | 2022-03-31 01:40 | NUR ---
Pt on room air, O2 sat 98% percent, no distress noted, tolerating well.
[2022-03-31] MEDS: IPRATROPIUM 0.02% 0.5 MG/2.5 ML NEBU INH SCH ×4 (01:45→19:40)
--- NOTE | 2022-03-31 03:45 | NUR ---
Noted pt with stool smear, stool is pasty brown. Perform digital disimpaction, moderate amount of pasty stool out, no clumps noted. Addendum: 03/31/22 at 0349 by Agency 04 TRIPP RN Pt also noted stating "oh no Rasta" but does not answer questions nor follow commands, still resistive to care despite explanation.
[2022-03-31] MEDS: LEVOTHYROXINE 0.05 MG TAB GT SCH (05:41)
[2022-03-31 05:49] LABS: CARBON DIOXIDE 20.4 mmol/L (21-32); CHLORIDE 115 mmol/L (98-107); CREATININE 1.1 mg/dL (0.6-1.3); GLUCOSE 101 mg/dL (74-106); POTASSIUM 3.4 mmol/L (3.5-5.1); SODIUM SERUM 148 mmol/L (136-145); UREA NITROGEN, BLOOD 52 mg/dL (7-18)
[2022-03-31 05:53] LABS: MAGNESIUM 3.4 mg/dL (1.8-2.4); PHOSPHORUS 4.2 mg/dL (2.5-4.9)
[2022-03-31 06:08] LABS: BASOPHILS % (AUTO) 0.1 % (0.0-2.0); LYMPHOCYTES # (AUTO) 0.8 K/uL (2.5-16.5); LYMPHOCYTES % (AUTO) 5.1 % (20.5-51.1); MEAN CORPUSCULAR HEMOGLOBIN 28 pg (27-31); MEAN CORPUSCULAR HGB CONC 30 g/dL (33-37); MONOCYTES # (AUTO) 0.6 K/uL (0.8-1.0); NEUTROPHILS # (AUTO) 14.1 K/uL (1.8-7.7); NEUTROPHILS % (AUTO) 90.8 % (42.2-75.2); PLATELET COUNT (AUTO) 249 K/uL (140-450); RED CELL DISTRIBUTION WIDTH 15.9 % (11.6-13.7); WHITE BLOOD COUNT (AUTO) 15.6 K/uL (4.8-10.8)
--- NOTE | 2022-03-31 07:05 | NUR ---
Endorsed plan of care to Madelin ALMAGUER.
--- NOTE | 2022-03-31 07:30 | NUR ---
Received pt awake, verbally responsive with short words and confused. On O2 @1L/min via nasal cannula. Sinus rhythm on monitor. G-tube intact and clamped. Tracy catheter draining to BSD. PICC line on right upper arm intact and patent infusing 1/2NS @ 75ml/hr. Safety precautions in place.
[2022-03-31] MEDS: INSULIN LANTUS 100 UNITS/ML 10 ML VIAL SUBQ SCH ×2 (09:00→21:25)
--- NOTE | 2022-03-31 10:01 | NUR ---
PT. WITH LOW ABILIO SCALE AT MODERATE TO HIGH RISK, CONTINUE TO FOLLOW PRESSURE INJURY PREVENTION INTERVENTIONS. -POSITIONING: TURN AND REPOSITION PATIENT Q 2H OR SOONER USE PILLOWS TO KEEP BONY PROMINENCES FROM DIRECT CONTACT WITH SURFACES USE REPOSITIONING WEDGES TO PROVIDE 30-DEGREE ANGLE FOR SIDE LYING POSITIONS OFFLOADING OR FOAM DRESSING TO ALL TUBING TO PREVENT MEDICAL DEVICES RELATED PRESSURE INJURY -RE-EVALUATING AND MANAGING INCONTINENCE MONITOR SKIN CONDITION DURING POSITION CHANGE DO NOT MASSAGE REDNESS, BONY PROMINENCES FREQUENT JUSTIN-CARE AND PROVIDE BARRIER CREAMS PRN IF SOILING MOISTURE CONTROL BY OFFER BED SILVERIO/URINAL /ABSORBENT PAD TO WICK AND HOLD MOISTURE KEEP SKIN DRY AND PROTECT FROM FRICTION -MANAGE FRICTION/SHEAR/MOBILITY KEEP HOB AT THE LOWEST LEVEL OF ELEVATION NO MORE THAN 30 DEGREE UNLESS OTHERWISE CONTRAINDICATED USE LIFT SHEET OR TRANSFER DEVICE TO MOVE PATIENT AND PREVENT LATERAL SHEER. PROTECT HEELS, ELBOWS BONY PROMINENCES WITH SKIN BERRIES OR FOAM DRESSING IF EXPOSED TO FRICTION OFFLOAD BILATERAL HEELS BY PLACING PILLOWS UNDER CALVES AT ALL TIMES, UNLESS OTHERWISE CONTRAINDICATED -PRESSURE REDISTRIBUTION SURFACE THERAPY ASIF ISOFLEX MATTRESS -NUTRITION: PLEASE FOLLOW RD RECOMMENDATIONS AND OFFER NUTRITION SUPPLEMENTS IF ORDERED. PLEASE CONTACT WOUND CARE NURSE FOR ANY QUESTION AND CHANGE OF WOUND CONDITION.
--- NOTE | 2022-03-31 10:10 | NUR ---
Spoke to laura Foster on telephone. All questions answered.
[2022-03-31] MEDS ORDERED: KCL 20 MEQ/WATER INJ PREMIX 100 ML IV ONE (10:30)
--- NOTE | 2022-03-31 12:10 | NUR ---
Dr. Smalls at bedside examining pt.
[2022-03-31] MEDS: NACL 0.45% 1,000 ML IV SCH (13:32)
--- NOTE | 2022-03-31 14:50 | NUR ---
Dr. Iniguez at bedside examining pt. New orders received.
--- NOTE | 2022-03-31 17:28 | NUR ---
Seen and examined by Dr. Zamora. 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 No new orders.
--- NOTE | 2022-03-31 19:16 | NUR ---
Endorsed to welder 2nd shift nurse Keisha for continuity of care.
--- NOTE | 2022-03-31 20:30 | NUR ---
FOR TRANSFER TO TELEMETRY UNIT.
--- NOTE | 2022-03-31 21:15 | NUR ---
TURNED AND REPOSITIONED PATIENT; ACCUCHECK DONE; DUE INSULIN DOSE GIVEN.
--- NOTE | 2022-03-31 21:20 | NUR ---
RECEIVED PATIENT ON BED, AWAKE, ALERT, ABLE TO FOLLOW ONE STEP COMMAND; WITH GARBLED SPEECH. BREATHING EVEN AND UNLABORED AT 2-3 LITERS 02/NC, SO2 98%.CARDIACSCOPE SHOWS ON SINUS RHYTHM 80/MIN AND NO ARRHYTHMIAS SEEN. IVF IN PROGRESS 1/2 NS AT 75 ML/HR VIA PICC LINE TO RIGHT UPPER ARM; PATENT AND INTACT. ABDOMEN IS SOFT, HYPOACTIVE BOWEL SOUNDS. ON CONTINOUS TUBE FEEDING VITAL AF AT 20 ML/HR GOAL IS 50 ML/HR WITH WATER FLUSH OF 200 MLQ 4HRS; TOLERATED AND NO RESIDUALS SEEN. WITH ROMERO CATH IN PLACE TO GRAVITY DRAINAGE BAG DRAINING TO CLEAR PALE YELLOW URINE OUTPUT; INTACT.
--- NOTE | 2022-03-31 21:29 | NUR ---
ENID NEGRO, PATIENT'S SON WAS INFORMED AND NOTIFIED THRU TELEPHONE THAT HERE MOTHER WILL BE TRANSFERRED TO TELE UNIT [facility].
--- NOTE | 2022-03-31 22:25 | NUR ---
TRANSFERRED TO TELE ROOM 115 PER BED FOR CONTINUITY OF CARE; ENDORSED TO TRIPP BONILLA
[2022-04-01] VITALS: BP 132/68
[2022-04-01] MEDS: BLOOD GLUCOSE MONITORING 1 DEV DEV FS SCH ×4 (00:15→17:26)
--- NOTE | 2022-04-01 00:17 | NUR ---
RECEIVING NOTE RECEIVED PATIENT FROM ICU, PT ON BED, AWAKE, ALERT, ABLE TO FOLLOW ONE STEP COMMAND; WITH GARBLED SPEECH. BREATHING EVEN AND UNLABORED AT 3 LITERS 02/NC, SO2 98%. PT ON TELE AND SHOWS ON SINUS RHYTHM OF 88 AND NO ARRHYTHMIAS SEEN. IVF IN PROGRESS 1/2 NS AT 75 ML/HR VIA PICC LINE TO RIGHT UPPER ARM; CROCKER ABDOMEN IS SOFT, HYPOACTIVE BOWEL SOUNDS. ON CONTINUOUS TUBE FEEDING VITAL AF AT 20 ML/HR GOAL IS 50 ML/HR WITH WATER FLUSH OF 200 MLQ 4HRS; PT WITH ROMERO CATH IN PLACE TO GRAVITY DRAINAGE BAG DRAINING TO CLEAR PALE YELLOW URINE OUTPUT. ALL SAFETY MEASURES IN PLACE WILL CONTINUE TO MONITOR
[2022-04-01] MEDS: IPRATROPIUM 0.02% 0.5 MG/2.5 ML NEBU INH SCH ×4 (00:53→19:00)
[2022-04-01] MEDS: ALBUTEROL 0.083% 2.5 MG/3 ML NEBU INH PRN (00:53)
[2022-04-01] MEDS: NACL 0.45% 1,000 ML IV SCH ×2 (01:37→15:27)
--- NOTE | 2022-04-01 02:00 | NUR ---
BED BATH PT GIVEN COMPLETED BED BATH AND LINEN CHANGE
[2022-04-01 04:00] VITALS: BP 127/65
--- NOTE | 2022-04-01 05:00 | NUR ---
BLOOD SUGAR BS WAS 61 AND PT GIVEN SUPPLEMENT
[2022-04-01] MEDS: LEVOTHYROXINE 0.05 MG TAB GT SCH (05:22)
--- NOTE | 2022-04-01 06:00 | NUR ---
BLOOD SUGAR BS RETAKEN IS IS 101
[2022-04-01 07:12] LABS: ANION GAP 14.8 (8-16); CHLORIDE 113 mmol/L (98-107); GLUCOSE 77 mg/dL (74-106); SODIUM SERUM 145 mmol/L (136-145); UREA NITROGEN, BLOOD 34 mg/dL (7-18)
[2022-04-01 07:16] LABS: POTASSIUM 2.8 mmol/L (3.5-5.1)
[2022-04-01 07:22] LABS: MAGNESIUM 2.9 mg/dL (1.8-2.4)
[2022-04-01 07:29] LABS: HEMOGLOBIN 8.1 g/dL (12.0-16.0); MEAN CORPUSCULAR HEMOGLOBIN 27 pg (27-31); MEAN CORPUSCULAR HGB CONC 30 g/dL (33-37); PLATELET COUNT (AUTO) 234 K/uL (140-450); RED BLOOD CELL COUNT(AUTO) 2.96 MIL/uL (4.20-5.40); RED CELL DISTRIBUTION WIDTH 15.5 % (11.6-13.7); WHITE BLOOD COUNT (AUTO) 13.1 K/uL (4.8-10.8)
[2022-04-01 08:00] VITALS: BP 153/73
--- NOTE | 2022-04-01 08:04 | NUR ---
RECEIVED REPORT FROM METAL DRILL PRESS OPERATOR NURSE FOR CONTINUITY OF CARE, POC DISCUSSED. PT IS STABLE IN BED. ALL SAFETY MEASURES IN PLACE, CALL LIGHT WITHIN REACH. WILL CONTINUE TO MONITOR.
[2022-04-01] MEDS ORDERED: KCL 20 MEQ/WATER INJ PREMIX 200 ML IV SCH (09:00)
[2022-04-01] MEDS: INSULIN LANTUS 100 UNITS/ML 10 ML VIAL SUBQ SCH ×2 (09:00→21:52)
--- NOTE | 2022-04-01 09:00 | NUR ---
[place] MEDICATION ADMINISTERED PER MD ORDER, PT TOLERATED ADMINISTRATION. PRN POT ADMINISTERED PER MD ORDER FOR POT LEVEL OF 2.8 PT TOLERATING TUBE FEEDING WITH NO RESIDUAL NOTED. ALL SAFETY MEASURES IN PLACE, CALL LIGHT WITHIN REACH. WILL CONTINUE TO MONITOR.
[2022-04-01 10:39] LABS: BASOPHILS % (AUTO) 0.4 % (0.0-2.0); EOSINOPHILS % (AUTO) 0.3 % (0.0-4.0); LYMPHOCYTES % (AUTO) 6.8 % (20.5-51.1); MONOCYTES % (AUTO) 5.7 % (1.7-9.3); NEUTROPHILS # (AUTO) 11.4 K/uL (1.8-7.7); NEUTROPHILS % (AUTO) 86.8 % (42.2-75.2); PLATELET COUNT,MANUAL 234 K/uL (150-450)
[2022-04-01 10:40] LABS: BASOPHILS # (AUTO) 0.1 K/uL (0.00-0.22); LYMPHOCYTES # (AUTO) 0.9 K/uL (2.5-16.5); LYMPHOCYTES % (MANUAL) 6 % (20-46); METAMYELOCYTES % 1 % (0-0); MONOCYTES # (AUTO) 0.7 K/uL (0.8-1.0); MONOCYTES % (MANUAL) 3 % (5-12); OTHER CELLS,MANUAL % 1 (0-0)
--- NOTE | 2022-04-01 11:41 | NUR ---
(04/01/22) RD FOLLOW UP COMPLETED PLEASE REFER TO NUTRITION PROGRESS NOTE UNDER CARE ACTIVITY FOR ESTIMATED NUTRITION NEEDS. RD RECOMMENDATIONS: 1. CONTINUE TF VITAL AF 1.2 AT 50 ML/HR WITH FWF 200 ML Q4H. THIS PROVIDES 1200 ML TOTAL VOLUME, 1440 KCAL, 90 GM PROTEIN, 973 ML FREE WATER; MEETS 94% EST KCAL AND >100% EST PROTEIN NEEDS. 2. MONITOR NUTRITION-RELATED LAB VALUES 3. RD TO FOLLOW-UP 2-3 DAYS, HIGH RISK HARINDER BRAND, , RDN
[2022-04-01] MEDS ORDERED: POTASSIUM CHLORIDE 20% 40 MEQ/15 ML UDC GT SCH ×2 (11:45→14:51)
[2022-04-01 12:00] VITALS: BP 157/78
--- NOTE | 2022-04-01 12:00 | NUR ---
BLOOD GLUCOSE OF 149, NO INSULIN NEEDED PER SLIDING SCALE. ALL SAFETY MEASURES IN PLACE, CALL LIGHT WITHIN REACH. WILL CONTINUE TO MONITOR.
[2022-04-01] MEDS ORDERED: POTASSIUM CHLORIDE 20% 40 MEQ/15 ML UDC GT ONE (14:45)
[2022-04-01 16:00] VITALS: BP 155/76
[2022-04-01] MEDS: INSULIN LISPRO SLIDING SCALE 100 UNITS/ML VIAL SUBQ PRN (17:26)
--- NOTE | 2022-04-01 18:51 | NUR ---
ALL NEEDS HAVE BEEN MET THROUGHOUT THE SHIFT, ENDORSE PENDING PSYCH CONSULT. PT STABLE. Addendum: 04/02/22 at 0732 by Peyton Ribeiro RN NOTE ON WRONG PT
[2022-04-01 22:42] VITALS: BP 151/79
[2022-04-02] MEDS: BLOOD GLUCOSE MONITORING 1 DEV DEV FS SCH ×5 (00:53→23:23)
[2022-04-02] MEDS: INSULIN LISPRO SLIDING SCALE 100 UNITS/ML VIAL SUBQ PRN ×4 (00:54→23:53)
[2022-04-02] MEDS: IPRATROPIUM 0.02% 0.5 MG/2.5 ML NEBU INH SCH ×4 (01:00→19:00)
[2022-04-02] MEDS: NACL 0.45% 1,000 ML IV SCH (04:58)
[2022-04-02 05:27] VITALS: BP 149/80
[2022-04-02] MEDS: LEVOTHYROXINE 0.05 MG TAB GT SCH (06:52)
--- NOTE | 2022-04-02 07:30 | NUR ---
RECEIVED REPORT FROM HEAT TREATING BLUER NURSE FOR CONTINUITY OF CARE, OVERNIGHT EVENTS DISCUSSED. POC OF CARE CONTINUING. PT IN BED ON 2L NC STABLE ON TELE MONITOR. ALL SAFETY MEASURES IN PLACE, CALL LIGHT WITHIN REACH. WILL CONTINUE TO MONITOR.
[2022-04-02 08:00] VITALS: BP 131/81
--- NOTE | 2022-04-02 09:00 | NUR ---
[place] MEDICATION ADMINISTERED PER MD ORDER, PT TOLERATED ADMINISTRATION. PT STABLE IN BED WITH NO ACUTE S/S OF DISTRESS. ASSESSMENT COMPLETED AND NOTED IN INTERVENTIONS. ALL SAFETY MEASURES IN PLACE, WILL CONTINUE TO MONITOR.
[2022-04-02 09:03] LABS: BASOPHILS % (AUTO) 0.2 % (0.0-2.0); EOSINOPHILS # (AUTO) 0.1 K/uL (0-0.4); EOSINOPHILS % (AUTO) 0.4 % (0.0-4.0); HEMATOCRIT 29.5 % (36-48); HEMOGLOBIN 9.2 g/dL (12.0-16.0); LYMPHOCYTES # (AUTO) 0.7 K/uL (2.5-16.5); LYMPHOCYTES % (AUTO) 4.9 % (20.5-51.1); MEAN CORPUSCULAR HEMOGLOBIN 27 pg (27-31); MEAN CORPUSCULAR HGB CONC 31 g/dL (33-37); MEAN CORPUSCULAR VOLUME 87.8 fL (80-94); MONOCYTES % (AUTO) 7.6 % (1.7-9.3); NEUTROPHILS # (AUTO) 11.9 K/uL (1.8-7.7); NEUTROPHILS % (AUTO) 86.9 % (42.2-75.2); PLATELET COUNT (AUTO) 249 K/uL (140-450); RED BLOOD CELL COUNT(AUTO) 3.36 MIL/uL (4.20-5.40); RED CELL DISTRIBUTION WIDTH 15.6 % (11.6-13.7); WHITE BLOOD COUNT (AUTO) 13.7 K/uL (4.8-10.8)
[2022-04-02 09:12] LABS: ANION GAP 14.8 (8-16); CARBON DIOXIDE 21.2 mmol/L (21-32); CHLORIDE 111 mmol/L (98-107); GLUCOSE 296 mg/dL (74-106); SODIUM SERUM 144 mmol/L (136-145); UREA NITROGEN, BLOOD 28 mg/dL (7-18)
[2022-04-02] MEDS: FLUCONAZOLE 100 MG TAB GT SCH (09:33)
[2022-04-02] MEDS: INSULIN LANTUS 100 UNITS/ML 10 ML VIAL SUBQ SCH ×2 (09:35→20:33)
[2022-04-02] MEDS ORDERED: POTASSIUM CHLORIDE 20% 40 MEQ/15 ML UDC GT SCH (11:05)
--- NOTE | 2022-04-02 11:05 | NUR ---
POT ADMINISTERED PER MD ORDER, PT TOLERATED ADMINISTRATION. PT REMAINS STABLE WITH NO ACUTE S/S OF DISTRESS. ALL SAFETY MEASURES IN PLACE. CALL LIGHT WITHIN REACH. WILL CONTINUE TO MONITOR.
[2022-04-02 12:00] VITALS: BP 121/62
--- NOTE | 2022-04-02 12:00 | NUR ---
BLOOD GLUCOSE IS 289, 6 UNITS OF INSULIN ADMINISTERED PER MD ORDER. PT TOLERATED ADMINISTRATION. ALL SAFETY MEASURES IN PLACE. CALL LIGHT WITHIN REACH. WILL CONTINUE TO MONITOR.
--- NOTE | 2022-04-02 14:00 | NUR ---
PT HAS BEEN CLEANED, NEW GOWN AND LINENS PROVIDED. PT REMAINED STABLE THROUGHOUT THE CLEANING. ALL SAFETY MEASURES IN PLACE. CALL LIGHT WITHIN REACH. WILL CONTINUE TO MONITOR.
[2022-04-02 16:00] VITALS: BP 110/85
--- NOTE | 2022-04-02 17:00 | NUR ---
BLOOD GLUCOSE IS 398, 10 UNITS OF INSULIN ADMINISTERED TO LEFT UPPER ARM. PT TOLERATED ADMINISTRATION. ALL SAFETY MEASURES IN PLACE. CALL LIGHT WITHIN REACH. WILL CONTINUE TO MONITOR.
--- NOTE | 2022-04-02 18:42 | NUR ---
PT HAS REMAINED STABLE THROUGHOUT THE SHIFT WITH NO S/S OF ACUTE DISTRESS. ALL NEEDS HAVE BEEN MET. ALL SAFETY MEASURES IN PLACE, CALL LIGHT WITHIN REACH. WILL CONTINUE TO MONITOR & PT WILL BE ENDORSED TO LOGISTICS ENGINEER NURSE AT 1900.
--- NOTE | 2022-04-02 19:20 | NUR ---
RECEIVED PATIENT IN BED ASLEEP. NO S/SX OF PAIN NOR DISCOMFORT. NO RESPIRATORY DISTRESS NOTED. SKIN WARM AND DRY TO TOUCH. G-TUBE FEEDING OF VITAL AT 50 ML/HE, NO RESIDUAL NOTED AT THIS TIME, PLACEMENT VERIFIED VIA AUSCULTATION, HEAD OF THE BED ELEVATED AT 35 DEGREES FOR ASPIRATION PRECAUTION. DROPLET PRECAUTION, BED IN THE LOWEST AND LOCKED POSITION FOR SAFETY, CALL LIGHT IN REACH.
[2022-04-02 20:00] VITALS: BP 152/89
[2022-04-02] MEDS: ONDANSETRON 4 MG/2 ML VIAL IVP PRN (23:21)
--- NOTE | 2022-04-02 23:53 | NUR ---
BLOOD SUGAR 435 REPEATED 416 MG/DL, GIVEN 10 UNITS OF HUMULOG PER SLIDING SCALE COVERAGE ORDERED. PATIENT SMITH A LARGE BROWN VOMITUS, ZOFRAN GIVEN, NO RESIDUAL FROM G-TUBE. INFORMED DR. SCOTT MINISTER ASSISTANT FOR DR. AMAYA. PER GIVE 10 UNITS LANTUS. Addendum: 04/03/22 at 0120 by Lavern Mcbride RN LARGE AMOUNT OF COFFEE GROUND EMESIS.
[2022-04-03] VITALS: BP 142/83
[2022-04-03] MEDS: IPRATROPIUM 0.02% 0.5 MG/2.5 ML NEBU INH SCH ×4 (01:00→19:29)
--- NOTE | 2022-04-03 02:01 | NUR ---
REPOSITIONED FOR COMFORT. NO VOMITING NOTED AT THIS TIME. HEAD OF THE BED AT 35 DEGREES FOR ASPIRATION PRECAUTION, NO RESIDUAL FROM G-TUBE.
[2022-04-03 04:00] VITALS: BP 138/73
--- NOTE | 2022-04-03 04:44 | NUR ---
OCCULT BLOOD POSITIVE, CALL PLACED TO DR. SCOTT, AWAITING CALL BACK.
[2022-04-03] MEDS: LEVOTHYROXINE 0.05 MG TAB GT SCH (05:34)
[2022-04-03] MEDS: BLOOD GLUCOSE MONITORING 1 DEV DEV FS SCH ×3 (05:34→18:17)
[2022-04-03] MEDS: INSULIN LISPRO SLIDING SCALE 100 UNITS/ML VIAL SUBQ PRN ×3 (05:35→18:21)
--- NOTE | 2022-04-03 06:06 | NUR ---
ALL NEEDS ATTENDED TO. NO RESIDUAL FROM G-TUBE, SAFETY PRECAUTIONS MAINTAINED DURING THE SHIFT. LATEST BS-307 MG/DL, INSULIN GIVEN PER SLIDING SCALE COVERAGE ORDERED. NO DISTRESS NOTED. CALL LIGHT REMAINED WITHIN REACH.
[2022-04-03 07:36] LABS: BASOPHILS % (AUTO) 0.1 % (0.0-2.0); EOSINOPHILS # (AUTO) 0.1 K/uL (0-0.4); EOSINOPHILS % (AUTO) 0.6 % (0.0-4.0); HEMATOCRIT 32.1 % (36-48); HEMOGLOBIN 9.7 g/dL (12.0-16.0); LYMPHOCYTES # (AUTO) 0.9 K/uL (2.5-16.5); LYMPHOCYTES % (AUTO) 6.1 % (20.5-51.1); MEAN CORPUSCULAR HEMOGLOBIN 27 pg (27-31); MEAN CORPUSCULAR HGB CONC 30 g/dL (33-37); MEAN CORPUSCULAR VOLUME 89.9 fL (80-94); MONOCYTES # (AUTO) 1.1 K/uL (0.8-1.0); MONOCYTES % (AUTO) 7.5 % (1.7-9.3); NEUTROPHILS # (AUTO) 12.8 K/uL (1.8-7.7); NEUTROPHILS % (AUTO) 85.7 % (42.2-75.2); PLATELET COUNT (AUTO) 234 K/uL (140-450); RED BLOOD CELL COUNT(AUTO) 3.57 MIL/uL (4.20-5.40); RED CELL DISTRIBUTION WIDTH 15.7 % (11.6-13.7); WHITE BLOOD COUNT (AUTO) 14.9 K/uL (4.8-10.8)
[2022-04-03 07:47] LABS: ANION GAP 17.5 (8-16); CARBON DIOXIDE 22.9 mmol/L (21-32); CHLORIDE 109 mmol/L (98-107); CREATININE 1.2 mg/dL (0.6-1.3); GLUCOSE 294 mg/dL (74-106); POTASSIUM 3.4 mmol/L (3.5-5.1); SODIUM SERUM 146 mmol/L (136-145); UREA NITROGEN, BLOOD 39 mg/dL (7-18)
[2022-04-03 08:00] VITALS: BP 152/84
--- NOTE | 2022-04-03 08:00 | NUR ---
RECEIVE ENDORSEMENT FROM PM SHIFT NURSE THAT PATIENT IS FROM [facility] FOR HYPONATREMIA AFTER ALOC W/ SOB. PICC AT [facility]. WILL CONTINUE TO MONITOR
[2022-04-03] MEDS: FLUCONAZOLE 100 MG TAB GT SCH (09:47)
[2022-04-03] MEDS: INSULIN LANTUS 100 UNITS/ML 10 ML VIAL SUBQ SCH (09:49)
[2022-04-03] MEDS ORDERED: KCL 20 MEQ/WATER INJ PREMIX 200 ML IV SCH (11:00)
--- NOTE | 2022-04-03 11:28 | NUR ---
RECEIVE [facility] DIGITAL PHOTO PRINTER FAISAL CALL FOR F/U PATIENT'S STATUS, DISCHARGE DATE ISSUE. INFORM CM THAT NURSE HAS NO D/C ORDER AT THIS TIME, PATIENT IS IN TEL. UNITE. WILL CONTINUE TO MONITOR Addendum: 04/03/22 at 1318 by Preethi Raya RN DC PLANNING: RECEIVED A CALL FROM [place] AT [facility] STATED SINCE PATIENT IS A INTERMEDIATE PATIENT WITH THEM , THEY RECOMMENDED PATIENT TO GO TO ONE OF [facility] FOR COVID ISOLATION AND PLAN TO RETURN TO [facility] AFTER 14 DAYS. CALLED PT'S SON SPOKE WITH DASIA , HE AGREED AND WANTED HIS MOM TO GO TO [facility] AT [address] [place] [address] [place] [id number]. CALLED [facility] [phone] SPOKE WITH CHARY STATED THEY CAN ACCEPT COVID PATIENT AND AFTER 14 DAYS WILL SEND HER BACK TO [facility]. CAN GO TO ROOM 7B. ARRANGED TRANSPORT WITH [facility] TRANSPORT ETA 16OO. NOTIFIED DANIEL ALMAGUER
[2022-04-03 12:00] VITALS: BP 143/83
--- NOTE | 2022-04-03 13:24 | NUR ---
RECEIVE CALL FROM NICOLE BUTCHER, THAT PATIENT IS DISCHARGING BACK TO SNF, A SISTER FACILITY OF NIGEL BEAVER IN [place] ([phone]) BED 7B. DIRECTOR DERMATOLOGY TIME 1600. WAITING TO D/C ORDER. WILL CONTINUE TO MONITOR.
[2022-04-03] MEDS ORDERED: LANTUS SUBQ ×2 (14:05→14:23)
[2022-04-03] MEDS ORDERED: FLUC100T1 GT (14:05)
[2022-04-03] MEDS ORDERED: PRON INH (14:05)
[2022-04-03 14:19] VITALS: BP 143/83
[2022-04-03 16:00] VITALS: BP 141/82
--- NOTE | 2022-04-03 19:18 | NUR ---
D/C PATIENT'S ROMERO AND PICC LINE PER PCP ORDER. PATIENT IS READY TO BE DATA ENTRY TECHNICIAN FOR TRANSPORT TO [facility] IN [place]. PER FOOD SERVICE EMPLOYEE, DATA ENTRY TECHNICIAN TIME IS 1900. WILL ENDORSE PM SHIFT NUJRSE TO F/U.
[2022-04-03] MEDS: ALBUTEROL 0.083% 2.5 MG/3 ML NEBU INH PRN (19:29)
--- NOTE | 2022-04-03 19:39 | NUR ---
ENDORSE PT TO PM SHIFT NURSE THAT PATIENT IS FROM [facility] AND WILL TRANSFER TO [facility]'S SISTER FACILITY IN [place]. PICC LINE & ROMERO REMOVED. PER RECORDER HELPER SEISMOGRAPH, MARINE DIVER TIME 1900. PATIENT IS READY TO BE MARINE DIVER. G-TUB IS INFUSING VITAL 1.2 @50ML/HR.
[2022-04-03] MEDS ORDERED: INSULIN LANTUS 100 UNITS/ML 10 ML VIAL SUBQ SCH ×2 (21:00)
== END 2022-04-03 19:53 | DRG 871 ==
LOC: MED 04:38 → MIC 07:35 → MTU 03-31 22:19
PROVIDERS: ADMIT Internal Medicine; ATTEND Internal Medicine
PROC: 5A09357 Assistance with Respiratory Ventilation, Less than 24 Consecutive Hours, Continuous Positive Airway Pressure (ICD-10-PCS; principal; 2022-03-29)
PROC: 02HV33Z Insertion of Infusion Device into Superior Vena Cava, Percutaneous Approach (ICD-10-PCS; 2022-03-29)
PROC: B548ZZA Ultrasonography of Superior Vena Cava, Guidance (ICD-10-PCS; 2022-03-29)
DX: A41.9 Sepsis, unspecified organism (principal); J12.82 Pneumonia due to coronavirus disease 2019; N17.0 Acute kidney failure with tubular necrosis; R65.21 Severe sepsis with septic shock; K85.90 Acute pancreatitis without necrosis or infection, unspecified; R53.2 Functional quadriplegia; U07.1 COVID-19; E44.0 Moderate protein-calorie malnutrition; E87.0 Hyperosmolality and hypernatremia; N39.0 Urinary tract infection, site not specified; J44.0 Chronic obstructive pulmonary disease with (acute) lower respiratory infection; J44.1 Chronic obstructive pulmonary disease with (acute) exacerbation; F03.90 Unspecified dementia, unspecified severity, without behavioral disturbance, psychotic disturbance, mood disturbance, and anxiety; E03.9 Hypothyroidism, unspecified; G40.909 Epilepsy, unspecified, not intractable, without status epilepticus; K21.9 Gastro-esophageal reflux disease without esophagitis; K80.20 Calculus of gallbladder without cholecystitis without obstruction; M81.0 Age-related osteoporosis without current pathological fracture; R13.10 Dysphagia, unspecified; Z96.642 Presence of left artificial hip joint; E87.6 Hypokalemia; E11.21 Type 2 diabetes mellitus with diabetic nephropathy; I12.9 Hypertensive chronic kidney disease with stage 1 through stage 4 chronic kidney disease, or unspecified chronic kidney disease; E11.22 Type 2 diabetes mellitus with diabetic chronic kidney disease; N18.2 Chronic kidney disease, stage 2 (mild); Z74.01 Bed confinement status; Z86.73 Personal history of transient ischemic attack (TIA), and cerebral infarction without residual deficits; Z93.1 Gastrostomy status; Z68.28 Body mass index [BMI] 28.0-28.9, adult; N18.30 Chronic kidney disease, stage 3 unspecified
CPT/HCPCS: 36415; 36600; 71045; 76770; 80048; 80053; 81001; 82009; 82272; 82803; 82948; 83605; 83690; 83735; 83880; 84100; 84484; 85025; 86140; 87040; 87081; 87086; 93005; 94640; 94660; 96365; 96375; 99291; J0696; J1100; J1815; J2405; J2543; J3480; J3490; J7060; J7613; J7614; J7644; Q0092

== ENCOUNTER 2022-04-23 13:19 | Inpatient (IN) | payer OTHER, MEDICARE ==
[~2022-04-23] VITALS: Ht 160 cm; Wt 70.8 kg
[2022-04-23 13:19] VITALS: BP 116/72
[~2022-04-23 13:19] MED LIST changes: +FLUC100T1 GT; -PIPE1SOL IV; +PRON INH
--- NOTE | 2022-04-23 13:20 | NUR ---
Note undone in EDM - 04/23/22 at 1626 by PHSEP 72YO FEMALE PT BIBA FROM [facility] DUE TO HIGH BS. PER [facility] , FACILITY STATES PT HAD "HIGH" BS READING AND ALOC XTODAY. PT WAS GIVEN 10UNITS OF INSULIN BY [facility] PRIOR TO ARRIVAL. AT ARRIVAL , PT HYPERVENTALING AND NON VERBAL -AT BASELINE. CLEAR BILATERAL LUNG SOUNDS. PT AROUSABLE TO TOUCH/ VOICE AND COOPERATIVE . PT ABLE TO TRACK WITH EYES AND COMMUNICATES BY HEAD NODDING OR MUMBLING SINGLE WORD ANSWERS "YES/NO". G TUBE PRESENT, ABDOMEN ACTIVE X4, NON DISTENDED OR TENDER. ULCER PRESENT IN R CALF. PT ON 3L VIA NC. PT BED BOUND W/ L SIDED DEFICIT. HEEL PADS IN PLACE. HOB RAISED, BED AT LOWEST POSITION, BED RAILS UP X2. PT ON IRRADIATED FUEL HANDLER. HX: ACUTE KIDNEY FAILURE, SEIZURES, HDL, HYPOTHYROIDISM, TIA, CVA- L SIDED DEFICITS, DM2 ALLERGIES:LISINOPRIL
--- NOTE | 2022-04-23 13:20 | NUR ---
Patient BIBA to bed 7.
--- NOTE | 2022-04-23 13:20 | NUR ---
72YO FEMALE PT BIBA FROM [facility] DUE TO HIGH BS. PER [facility] , FACILITY STATES PT HAD "HIGH" BS READING AND ALOC XTODAY. PT WAS GIVEN 10UNITS OF INSULIN BY [facility] PRIOR TO ARRIVAL. AT ARRIVAL , PT HYPERVENTALING AND NON VERBAL -AT BASELINE. CLEAR BILATERAL LUNG SOUNDS. PT AROUSABLE TO TOUCH/ VOICE AND COOPERATIVE . PT ABLE TO TRACK WITH EYES AND COMMUNICATES BY HEAD NODDING OR MUMBLING SINGLE WORD ANSWERS "YES/NO". G TUBE PRESENT, ABDOMEN ACTIVE X4, NON DISTENDED OR TENDER. ULCER PRESENT IN R CALF. PT ON 3L VIA NC. PT BED BOUND W/ L SIDED DEFICIT. HEEL PADS IN PLACE. HOB RAISED, BED AT LOWEST POSITION, BED RAILS UP X2. PT ON CAN CONVEYOR FEEDER. HX: ACUTE KIDNEY FAILURE, SEIZURES, HDL, HYPOTHYROIDISM, TIA, CVA- L SIDED DEFICITS, DM2 ALLERGIES:LISINOPRIL
--- NOTE | 2022-04-23 13:20 | NUR ---
Dr. Puckett at bedside evaluating patient.
[2022-04-23] MEDS ORDERED: ALBUTEROL SULFATE/IPRATROPIU 3 ML SOL IH ONE (13:25)
[2022-04-23] MEDS ORDERED: NACL 0.9% 500 ML IV ONE (13:25)
[2022-04-23] MEDS ORDERED: ACETAMINOPHEN 650 MG SUPP RC ONE ×2 (13:29→13:30)
--- NOTE | 2022-04-23 13:39 | NUR ---
LAB AT BEDSIDE FOR BLOOD DRAW
[2022-04-23] MEDS ORDERED: VANCOMYCIN 1,000 MG in DEXTROSE 5% 250 ML IV ONE (13:40)
[2022-04-23] MEDS ORDERED: PIPERACILLIN/TAZOBACTAM 3.375 GM in DEXTROSE 5% 50 ML IV ONE (13:40)
--- NOTE | 2022-04-23 13:49 | NUR ---
RAD AT BEDSIDE
--- NOTE | 2022-04-23 14:04 | NUR ---
RT AT BEDSIDE FOR ABG
--- NOTE | 2022-04-23 14:08 | NUR ---
PT TAKEN TO CT VIA MYKEL
[2022-04-23 14:09] LABS: BASOPHILS # (AUTO) 0.1 K/uL (0.00-0.22); BASOPHILS % (AUTO) 0.5 % (0.0-2.0); EOSINOPHILS # (AUTO) 0.6 K/uL (0-0.4); EOSINOPHILS % (AUTO) 5.1 % (0.0-4.0); HEMOGLOBIN 8.8 g/dL (12.0-16.0); LYMPHOCYTES # (AUTO) 2.3 K/uL (2.5-16.5); LYMPHOCYTES % (AUTO) 21.2 % (20.5-51.1); MEAN CORPUSCULAR HEMOGLOBIN 27 pg (27-31); MEAN CORPUSCULAR HGB CONC 29 g/dL (33-37); MEAN CORPUSCULAR VOLUME 91.7 fL (80-94); MONOCYTES # (AUTO) 1.1 K/uL (0.8-1.0); MONOCYTES % (AUTO) 10.6 % (1.7-9.3); NEUTROPHILS # (AUTO) 6.8 K/uL (1.8-7.7); NEUTROPHILS % (AUTO) 62.6 % (42.2-75.2); PLATELET COUNT (AUTO) 368 K/uL (140-450); RED BLOOD CELL COUNT(AUTO) 3.27 MIL/uL (4.20-5.40); RED CELL DISTRIBUTION WIDTH 17.9 % (11.6-13.7); WHITE BLOOD COUNT (AUTO) 10.8 K/uL (4.8-10.8)
--- NOTE | 2022-04-23 14:16 | NUR ---
PT BACK FROM CT AND CONNECTED TO MONITOR
[2022-04-23] MEDS ORDERED: PIPERACILLIN/TAZOBACTAM 3.375 GM VIAL IV ONE (14:23)
[2022-04-23] MEDS ORDERED: VANCOMYCIN 1,000 MG VIAL ONE (14:24)
[2022-04-23 14:31] LABS: ANION GAP 18.6 (8-16); ASPARTATE AMINOTRANSFERASE 16 U/L (15-37); CARBON DIOXIDE 18.6 mmol/L (21-32); CHLORIDE 110 mmol/L (98-107); CREATININE 2.1 mg/dL (0.6-1.3); POTASSIUM 4.2 mmol/L (3.5-5.1); SODIUM SERUM 143 mmol/L (136-145); TOTAL BILIRUBIN 0.2 mg/dL (0.0-1.0); UREA NITROGEN, BLOOD 40 mg/dL (7-18)
[2022-04-23 14:34] LABS: GLUCOSE 564 mg/dL (74-106)
[2022-04-23] MEDS ORDERED: INSULIN REGULAR, HUMAN 100 UNIT/ML VIAL SUBQ ONE ×2 (14:40)
[2022-04-23] MEDS ORDERED: INSULIN REGULAR, HUMAN 100 UNIT/ML VIAL IVP ONE (14:50)
[2022-04-23] MEDS ORDERED: NACL 0.9% 1,000 ML IV ONE (14:50)
--- NOTE | 2022-04-23 14:50 | NUR ---
PT SWABBED FOR COVID(CASTRO) AND FLU. WALKED AND HANDED TO LAB
--- NOTE | 2022-04-23 15:30 | NUR ---
STRAIGHT Urinary catheter inserted utilizing sterile technique. Immediate return of 60 ml YELLOW CLEAR urine noted. Urine sample collected and sent to lab. Pt tolerated procedure WELL .
--- NOTE | 2022-04-23 15:30 | NUR ---
Celio winters in [facility] - 04/23/22 at 1815 by PHSEP 50ML URINE COLLECTED USING STRAIGHT CATH.
[2022-04-23] MEDS ORDERED: POTASSIUM CHLORIDE 10 MEQ TABER PO PRN (16:05)
[2022-04-23] MEDS ORDERED: HYDROcodone/APAP 5/325 MG 1 TAB TAB PO PRN (16:05)
[2022-04-23] MEDS ORDERED: MORPHINE SULFATE 4 MG/ML SYR IVP PRN (16:05)
[2022-04-23] MEDS ORDERED: MAG SULF 2000 MG/WATER PREMIX 50 ML IV PRN (16:05)
[2022-04-23] MEDS ORDERED: MAGNESIUM OXIDE 400 MG TAB PO PRN (16:05)
[2022-04-23] MEDS ORDERED: KCL 20 MEQ/WATER INJ PREMIX 200 ML IV PRN (16:05)
[2022-04-23] MEDS ORDERED: ACETAMINOPHEN 325 MG TAB PO PRN (16:05)
[2022-04-23] MEDS ORDERED: ONDANSETRON 4 MG/2 ML VIAL IVP PRN (16:05)
[2022-04-23] MEDS ORDERED: ALBUTEROL 0.083% 2.5 MG/3 ML NEBU INH PRN (16:10)
[2022-04-23] MEDS ORDERED: DEXTROSE 50% 50 ML SYR IVP PRN (16:10)
[2022-04-23 16:16] LABS: BILIRUBIN,URINE NEGATIVE (NEGATIVE); BLOOD, URINE 3+ (NEGATIVE); COLOR,URINE YELLOW (YELLOW); LEUKOCYTE ESTERASE ,URINE 1+ (NEGATIVE); NITRITE, URINE NEGATIVE (NEGATIVE); UGLUCOSE 3+ (NEGATIVE)
[2022-04-23 16:26] LABS: APPEARANCE,URINE CLOUDY (CLEAR); RBC,URINE 20-50 /HPF (0-5); WBC,URINE TOO MANY TO COUNT /HPF (0-5)
--- NOTE | 2022-04-23 16:46 | NUR ---
LAB AT BEDSIDE
[2022-04-23] MEDS: BLOOD GLUCOSE MONITORING 1 DEV DEV FS SCH ×2 (17:01→22:27)
[2022-04-23] MEDS ORDERED: cefTRIAXone 1,000 MG VIAL ONE (17:04)
[2022-04-23] MEDS: INSULIN LISPRO SLIDING SCALE 100 UNITS/ML VIAL SUBQ PRN ×2 (17:10→22:31)
[2022-04-23] MEDS: NACL 0.9% 1,000 ML IV SCH (17:14)
--- NOTE | 2022-04-23 18:58 | NUR ---
PT AT REST AND SLEEPING. NO VISIBLE DISTRESS. RESPIRATIONS EVEN AND UNLABORED.
--- NOTE | 2022-04-23 19:20 | NUR ---
REPORT GIVEN TO SYLVAIN AMAYA. ALL QUESTIONS ANSWERED. TRANSFER OF CARE AT THIS TIME
--- NOTE | 2022-04-23 20:20 | NUR ---
Patient will be admitted to care of DR. MORAN. Admited to TELE. Will go to room 108B. Belongings list completed. Report to MADDY
--- NOTE | 2022-04-23 20:42 | NUR ---
Note vianey in EDM - 04/23/22 at 2049 by ANA Patient will be admitted to care of DR. MORAN. Admited to TELE. Will go to room 108B. Belongings list completed. Report to MADDY.
[2022-04-23 20:50] VITALS: BP 116/60
--- NOTE | 2022-04-23 20:50 | NUR ---
recieved pt from er / sophia , etelvina , nid - w/ o2 at 2lpm/nc - o2 sat wnl , iv site intact and patent , transfer to bed by manually , g tube intact and patent , admission assessment - done , plan of care discussed but poor understandoing due to mental status , put on fall risk , s2 prec. as protocol , on pure wick , will cont. to monitor , on tele monitor - sr . Addendum: 04/24/22 at 1907 by Liz Molina RN THE WORD [id number] IN THE ABOVE NURSE'S NOTE IS AND ERROR ENTRY , INSTEAD OF AWAKE , PT IS ALESSIO KOWALSKI
--- NOTE | 2022-04-23 20:52 | NUR ---
The patient's care was reviewed and supervised by Hailey Pappas RN.
[2022-04-23] MEDS: INSULIN LANTUS 100 UNITS/ML 10 ML VIAL SUBQ SCH (22:27)
--- NOTE | 2022-04-23 23:26 | NUR ---
CAN'T TOLERATE LAMICTAL / ORAL - THERE IS POCKETING OF TABLET ON THE SIDE OF THE MOUTH , CAN'T FOLLOW THE COMMAND . LAMICTAL /TAB PER DRUG LIT . - DO NOT CRUSH , DO NOT BREAK INSTRUCTION - INFORM PHARMACIST ANY ALTERNATIVE - PER PHARMACIST THERE IS SUSPENSION FORM OF LAMICTAL BUT PER HIM WE DONT HAVE IT.- INFORMED DR. OGLESBY ( [employer] ) . WAIT FURTHER ORDERS .
[2022-04-23] MEDS: APIXABAN 2.5 MG TAB GT SCH (23:37)
--- NOTE | 2022-04-24 01:30 | NUR ---
reviwed the lamictal - mislooked as lamictal sr , but reg . lamictal - will give it - will inform dr. stiles Addendum: 04/24/22 at 0653 by Liz Molina RN dr. stiles - LAMICTAL GIVEN .
[2022-04-24 04:00] VITALS: BP 137/77
--- NOTE | 2022-04-24 04:00 | NUR ---
ROUNDS , O2 SAT 96 5 - ON TELE MONITOR - SR , WILL CONT. TO MONITOR
[2022-04-24] MEDS ORDERED: CRUSHER, PILL MC ONE (05:54)
--- NOTE | 2022-04-24 06:00 | NUR ---
AAOX1 , O2 SAT WNL , ON TELE MONITOR . WILL CONT. TO MONITOR
[2022-04-24] MEDS: NACL 0.9% 1,000 ML IV SCH ×2 (06:04→18:18)
[2022-04-24] MEDS: BLOOD GLUCOSE MONITORING 1 DEV DEV FS SCH ×4 (06:05→22:30)
[2022-04-24] MEDS: LEVOTHYROXINE 0.05 MG TAB GT SCH (06:11)
[2022-04-24] MEDS: INSULIN LISPRO SLIDING SCALE 100 UNITS/ML VIAL SUBQ PRN ×4 (06:21→22:32)
[2022-04-24 07:07] LABS: BASOPHILS % (AUTO) 0.5 % (0.0-2.0); EOSINOPHILS # (AUTO) 0.6 K/uL (0-0.4); EOSINOPHILS % (AUTO) 6.9 % (0.0-4.0); HEMATOCRIT 24.3 % (36-48); HEMOGLOBIN 7.3 g/dL (12.0-16.0); LYMPHOCYTES % (AUTO) 11.9 % (20.5-51.1); MEAN CORPUSCULAR HEMOGLOBIN 27 pg (27-31); MEAN CORPUSCULAR HGB CONC 30 g/dL (33-37); MEAN CORPUSCULAR VOLUME 90.8 fL (80-94); MONOCYTES # (AUTO) 0.8 K/uL (0.8-1.0); MONOCYTES % (AUTO) 8.9 % (1.7-9.3); NEUTROPHILS # (AUTO) 6.2 K/uL (1.8-7.7); NEUTROPHILS % (AUTO) 71.8 % (42.2-75.2); PLATELET COUNT (AUTO) 238 K/uL (140-450); RED BLOOD CELL COUNT(AUTO) 2.68 MIL/uL (4.20-5.40); RED CELL DISTRIBUTION WIDTH 17.7 % (11.6-13.7); WHITE BLOOD COUNT (AUTO) 8.6 K/uL (4.8-10.8)
[2022-04-24 07:12] LABS: ALBUMIN 1.7 g/dL (3.4-5.0); ANION GAP 16.8 (8-16); ASPARTATE AMINOTRANSFERASE 18 U/L (15-37); CARBON DIOXIDE 17.1 mmol/L (21-32); CHLORIDE 119 mmol/L (98-107); CREATININE 1.6 mg/dL (0.6-1.3); GLUCOSE 293 mg/dL (74-106); POTASSIUM 3.9 mmol/L (3.5-5.1); SODIUM SERUM 149 mmol/L (136-145); TOTAL BILIRUBIN 0.2 mg/dL (0.0-1.0); UREA NITROGEN, BLOOD 29 mg/dL (7-18)
--- NOTE | 2022-04-24 07:18 | NUR ---
ENDORSED - PT - STABLE . ON TELE MONITOR .
[2022-04-24 07:35] LABS: MAGNESIUM 2.6 mg/dL (1.8-2.4)
[2022-04-24 08:00] VITALS: BP 119/76
--- NOTE | 2022-04-24 08:00 | NUR ---
OPENING NOTE: PATIENT RESTING IN BED. AOX1. BREATHING EVEN AND NON LABORED TO 2L/NC. G TUBE IN PLACED AND SECURED. FALL AND SAFETY MEASURES REINFORCED. CALL LIGHT WITHIN REACH.
[2022-04-24] MEDS: ASCORBIC ACID 500 MG TAB GT SCH (08:28)
[2022-04-24] MEDS: APIXABAN 2.5 MG TAB GT SCH ×2 (08:29→22:30)
[2022-04-24] MEDS: FLUCONAZOLE 100 MG TAB GT SCH (08:29)
[2022-04-24] MEDS: INSULIN LANTUS 100 UNITS/ML 10 ML VIAL SUBQ SCH ×2 (08:41→22:30)
[2022-04-24] MEDS ORDERED: ZINC SULF 220 MG CAP PO SCH (09:00)
--- NOTE | 2022-04-24 09:08 | NUR ---
PATIENT HAS BEEN SCREENED AND CATEGORIZED HIGH NUTRITION RISK. PATIENT WILL BE SEEN WITHIN 1-2 DAYS OF ADMISSION. 04/24/22-04/25/22 RECEIVED NUTRITION CONSULT AND REFERRAL FOR WOUND AND TUBE FEEDING. REVIEWED BY MENDEZ PATEL RD
[2022-04-24] MEDS: ZINC SULF 220 MG CAP PO SCH (10:07)
--- NOTE | 2022-04-24 11:14 | NUR ---
WOUND CARE NOTE: SKIN ASSESSMENT DONE WITH THIS 72 Y/O PT ADMITTED WITH INITIAL DX HYPERGLYCEMIA AND AMS. PAST MEDICAL HX INCLUDES PAST MEDICAL HISTORY OF CVA, DIABETES MELLITUS, COPD, DEMENTIA, HYPERTENSION AND GERD. PT ADMITTED WITH PRESSURE INJURY TO RIGHT POSTERIOR LOWER LEG /CALF. ALL ABOVE INFORMATION OBTAINED FROM ADMISSION H&P. PT IS AWAKE, O2 2L WITH NC.SKIN IS WARM AND DRY, BLE NO HAIR GROWTH, TRACE EDEMA. DORSAL PEDAL PULSES PRESENT AND NORMAL. INCONTINENT OF BOWEL AND BLADDER. PLAN OF CARE DISCUSSED WITH PRIMARY RN AGNIESZKA. INTEGUMENTARY: -LIPS AND ORAL MUCOSA DRY AND CLEAN. SKIN INTACT. -GT SITE, JUSTIN-STOMA SKIN EROSIONS, 2 SITES WITH LARGEST 1X1CM SUPERFICIAL DEPTH. WOUND BEDS MOIST AND NO ODOR. JUSTIN-WOUN SKIN INTACT -SACRALCOCCYX OLD HEALED DRY SCAR TISSUE, MOIST AND INTACT -PRESSURE ULCER INJURY STAGE 3, RIGHT POSTERIOR LOWER LEG /CALF NEXT TO TIBIA BONY AREA.4X2.5X0.3CM, WOUND BED 100% RED GRANULATION TISSUE, SMALL AMOUNT SEROUS DRAINAGE, WOUND EDGE FLAT, JUSTIN-WOUND SKIN DRY INTACT. -BILATERAL MEDIAL HEELS NON-BLANCHABLE REDNESS,(L)1X2CM, (R) 1X1CM SKIN INTACT RECOMMENDATIONS: - CLEANSE RIGHT POSTERIOR LOWER LEG WOUND WITH WOUND CLEANSING SOLUTION, APPLY HYDROGEL TO WOUND BED AND COVER WITH COMPOSITE DRESSING QD AND PRN IF SOILING -APPLY FOAM DRESSING TO SACRAL AREA CHANGE Q3 DAYS AND PRN IF SOILING -APPLY SKIN PREP WIPE TO BILATERAL HEELS BID AND LOGGER, OFFLOAD HEELS WITH PILLOWS -POSITIONING: TURN AND REPOSITION PATIENT Q 2H OR SOONER USE PILLOWS TO KEEP BONY PROMINENCES FROM DIRECT CONTACT WITH SURFACES USE REPOSITIONING WEDGES TO PROVIDE 30-DEGREE ANGLE FOR SIDE LYING POSITIONS OFFLOADING OR FOAM DRESSING TO ALL TUBING TO PREVENT MEDICAL DEVICES RELATED PRESSURE INJURY -RE-EVALUATING AND MANAGING INCONTINENCE MONITOR SKIN CONDITION DURING POSITION CHANGE DO NOT MASSAGE REDNESS, BONY PROMINENCES, DO NOT USE DONUT-TYPE DEVICES FREQUENT JUSTIN-CARE AND PROVIDE BARRIER CREAMS PRN IF SOILING MOISTURE CONTROL BY OFFER BED SILVERIO/URINAL /ABSORBENT PAD TO WICK AND HOLD MOISTURE. KEEP SKIN DRY AND PROTECT FROM FRICTION -MANAGE FRICTION/SHEAR/MOBILITY KEEP HOB AT THE LOWEST LEVEL OF ELEVATION NO MORE THAN 30 DEGREES UNLESS OTHERWISE CONTRAINDICATED USE LIFT SHEET OR TRANSFER DEVICE TO MOVE PATIENT AND PREVENT LATERAL SHEER. CONSIDER TRAPEZE IF APPROPRIATE PROTECT HEELS, ELBOWS BONY PROMINENCES WITH SKIN BERRIES OR FOAM DRESSING IF EXPOSED TO FRICTION OFFLOAD BILATERAL HEELS BY PLACING PILLOWS UNDER CALVES AT ALL TIMES, UNLESS OTHERWISE CONTRAINDICATED -PRESSURE REDISTRIBUTION SURFACE THERAPY ASIF ISOFLEX EDI MATTRESS -NUTRITION: PLEASE FOLLOW RD RECOMMENDATIONS AND OFFER NUTRITION SUPPLEMENTS IF ORDERED. Addendum: 04/24/22 at 1125 by Alondra Ordaz RN (Grace) ADD: CLEANSE GT SITE EROSIONS WITH NS, PAT DRY ,APPLY Z GUARD AND COVER WITH DRY GAUZE QD AND PRN IF SOILING
--- NOTE | 2022-04-24 11:30 | NUR ---
04/24/22 RD INITIAL ASSESSMENT COMPLETED PLEASE REFER TO NUTRITION ASSESSMENT UNDER CARE ACTIVITY FOR ESTIMATED NUTRITIONAL NEEDS. 1. WHEN/IF MEDICALLY APPROPRIATE, RECOMMEND GLUCERNA 1.2 @ 45 ML/HR WITH PROSOURCE TID -FWF: 200 ML Q4H OR PER MD -START AT 20 ML/HR AND INCREASE BY 20 ML Q4H TOLERATED -WILL PROVIDE 1416 KCAL AND 98 GM PROTEIN, MEETING > 90% ESTIMATED KCAL AND 100% ESTIMATED PROTEIN NEEDS; ADEQUATE 2. MONITOR NUTRITION-RELATED LAB VALUES 3. RD TO FOLLOW-UP 2-3 DAYS, HIGH RISK MENDEZ PATEL RD
[2022-04-24 12:00] VITALS: BP 122/60
--- NOTE | 2022-04-24 12:31 | NUR ---
DC PLANNIN YRS OLD FEMALE PATIENT WAS ADMITTED FROM [facility] WITH A DX OF LACTIC ACIDOSIS LA 3.3 PATIENT HAS A HX OF HTN, DM, CVA, G-TUBE BEDBOUND, HYPOTHYROID ,COPD AND SEIZURE. CXR SHOWED NO ACUTE CARDIOPULMONARY DISEASE RAPID COVID TEST NEGATIVE. CT HEAD NEGATIVE. IVF, IV ABX ROCEPHIN AND CONTINUED HOME MEDS. CONSULTED WITH ID. DC PLAN PER PATIENT'S RESPONSE TO THE TREATMENT. CM TO FOLLOW Addendum: 04/26/22 at 1533 by Preethi Raya RN DC PLANNING: PATIENT HAS A DC ORDER TO RETURN TO [facility]. CALLED IE SPOKE WITH SHADE PROVIDED THE AUTH FOR TRANSPORT [id number] FOR [facility] [id number]. CALLED MM SPOKE WITH GERMAIN, PT CAN GO TO ROOM 3B # TO GIVE REPORT [phone] ARRANGED TRANSPORT WITH [facility] [place] TIME 4:30 PM. NOTIFIED LILIYA ALMAGUER.
[2022-04-24] MEDS: FOAM DRESSING TP SCH (13:08)
--- NOTE | 2022-04-24 14:06 | NUR ---
RN NOTES/ SPOKE TO THE DIETITIAN: BHUPENDRA SUGAR 240. HUMALOG ORDERED GIVEN. SPOKE THE DIETITIAN REGARDING TUBE FEEDING. DIETITIAN SENT SMS TO DR. BARRETO FOR TUBE FEEDING ORDER.
[2022-04-24 16:00] VITALS: BP 124/67
--- NOTE | 2022-04-24 19:00 | NUR ---
CLOSING NOTE: PATIENT RESTING IN BED. NO S/S OF ACUTE DISTRESS NOTED. IV INFUSING WELL. FALL AND SAFETY MEASURES PROVIDED. NEEDS MET THROUGHOUT SHIFT.
--- NOTE | 2022-04-24 19:58 | NUR ---
G TUBE RESIDUAL - 10 CC - START G TUBE FEEDING GLUCERNA 1.2 - INITIALLY RATE IS 10CC/HR - WILL INCREASE ACCORDING TO PROTOCOL ORDER AND PT'S TOLERANCE - WILL CONT. TO MONITOR .
[2022-04-24 20:00] VITALS: BP 125/62
--- NOTE | 2022-04-24 21:03 | NUR ---
NPO POST MN - FOR SURGERY DHAVAL AM - PER DR. GOLDEN START IVF NSS X 60 CC /HR - DONT GIVE INSULIN UNLESS MORE THAN 250 - SINCE PT IS NPO POST MN . DR. GOLDEN INFORMED ABOUT DR. PATEL SUGGESTION POTASSIUM SUPPLEMENTS - BUT PER DR. GOLDEN SAID JUST FOLLOW THE PRN POTASSIUM ORDERED IN THE EMAR - WILL ENDORSE . Addendum: 04/24/22 at 2107 by Liz Molina RN THE ABOVE NURSE'S NOTE IS AN ERROR ENTRY - WRONG PT - DEX
--- NOTE | 2022-04-24 22:35 | NUR ---
G TUBE RESIDUE - 20 CC - PT TOLERATING THE FEEDING - ,WILL INCREASE THE FEEDING RATE GRADUALLY ACCORDING TO PROTOCOL AND PT'S TOLERANCE - WILL CONT. TO MONITOR
[2022-04-25] VITALS: BP 135/54
--- NOTE | 2022-04-25 | NUR ---
ROUNDS , NO S/SX OF ACUTE DISTRESS NOTED , O2 SAT WNL , ON TELE MONITOR
--- NOTE | 2022-04-25 02:00 | NUR ---
SLEEPING , ON TELE MONITOR.
[2022-04-25 04:00] VITALS: BP 126/60
--- NOTE | 2022-04-25 04:00 | NUR ---
O2 SAT WNL , AWAKE , NO S/SX OF ACUTE DISTRESS NOTED , WILL CONT. TO MONITOR
--- NOTE | 2022-04-25 06:09 | NUR ---
O2 SAT 96% , ON TELE MONITOR .
[2022-04-25] MEDS: NACL 0.9% 1,000 ML IV SCH ×2 (06:15→20:53)
[2022-04-25] MEDS: LEVOTHYROXINE 0.05 MG TAB GT SCH (06:24)
[2022-04-25] MEDS: BLOOD GLUCOSE MONITORING 1 DEV DEV FS SCH ×4 (06:38→21:05)
[2022-04-25] MEDS: INSULIN LISPRO SLIDING SCALE 100 UNITS/ML VIAL SUBQ PRN ×4 (06:39→20:13)
[2022-04-25 07:07] LABS: BASOPHILS % (AUTO) 0.4 % (0.0-2.0); EOSINOPHILS # (AUTO) 0.6 K/uL (0-0.4); EOSINOPHILS % (AUTO) 8.8 % (0.0-4.0); HEMATOCRIT 25.8 % (36-48); HEMOGLOBIN 7.7 g/dL (12.0-16.0); LYMPHOCYTES # (AUTO) 1.4 K/uL (2.5-16.5); LYMPHOCYTES % (AUTO) 19.9 % (20.5-51.1); MEAN CORPUSCULAR HEMOGLOBIN 27 pg (27-31); MEAN CORPUSCULAR HGB CONC 30 g/dL (33-37); MEAN CORPUSCULAR VOLUME 90.3 fL (80-94); MONOCYTES # (AUTO) 0.7 K/uL (0.8-1.0); MONOCYTES % (AUTO) 9.3 % (1.7-9.3); NEUTROPHILS # (AUTO) 4.5 K/uL (1.8-7.7); NEUTROPHILS % (AUTO) 61.6 % (42.2-75.2); PLATELET COUNT (AUTO) 346 K/uL (140-450); RED BLOOD CELL COUNT(AUTO) 2.85 MIL/uL (4.20-5.40); RED CELL DISTRIBUTION WIDTH 17.8 % (11.6-13.7); WHITE BLOOD COUNT (AUTO) 7.3 K/uL (4.8-10.8)
--- NOTE | 2022-04-25 07:34 | NUR ---
ENDORSED- PT - STABLE . AWAKE.
[2022-04-25 07:46] LABS: ALBUMIN 1.8 g/dL (3.4-5.0); ANION GAP 16.6 (8-16); ASPARTATE AMINOTRANSFERASE 20 U/L (15-37); CARBON DIOXIDE 16.9 mmol/L (21-32); CHLORIDE 118 mmol/L (98-107); CREATININE 1.4 mg/dL (0.6-1.3); GLUCOSE 240 mg/dL (74-106); MAGNESIUM 2.4 mg/dL (1.8-2.4); POTASSIUM 3.5 mmol/L (3.5-5.1); SODIUM SERUM 148 mmol/L (136-145); TOTAL BILIRUBIN 0.2 mg/dL (0.0-1.0); UREA NITROGEN, BLOOD 19 mg/dL (7-18)
[2022-04-25] MEDS: ZINC SULF 220 MG CAP PO SCH (09:17)
[2022-04-25] MEDS: FLUCONAZOLE 100 MG TAB GT SCH (09:18)
[2022-04-25] MEDS: APIXABAN 2.5 MG TAB GT SCH ×2 (09:18→20:10)
[2022-04-25] MEDS: ASCORBIC ACID 500 MG TAB GT SCH (09:19)
[2022-04-25] MEDS: INSULIN LANTUS 100 UNITS/ML 10 ML VIAL SUBQ SCH ×2 (09:20→20:11)
[2022-04-25 10:34] VITALS: BP 151/80
[2022-04-25] MEDS: SKINTEGRITY HYDROGEL TP SCH (13:00)
--- NOTE | 2022-04-25 13:30 | NUR ---
DC PLANNING LATE ENTRY SW OUTREACH TO [facility] TO GATHER COLLATERAL INFORMATION, SPOKE WITH ADMIN, RADHA. ADMIN IDENTIFIED EMERGENCY CONTACT PT'S SON DASIA SANON, . ADMIN REPORTS THAT PATIENT IS BED BOUND/ [facility] SINCE 2012. ADMIN REPORTS PT UNABLE TO RESPOND TO VERBAL COMMANDS. FAMILY IS ACTIVE IN HER CARE AND VISITS WITH PT. DC PLAN IS FOR PT TO RETURN TO FACILITY ONCE CLINICALLY STABLE
--- NOTE | 2022-04-25 16:41 | NUR ---
0800 Pt. in bed, vss, no distress, hob at 30. degrees, SR on monitor. Feeding via gtube noted at rx'd rate 1200 No residual of feeding, no resp. distress, vss 1400 Wound care done to left medial posterior leg, pt. tolerated well
[2022-04-25 17:30] VITALS: BP 125/69
--- NOTE | 2022-04-25 18:16 | NUR ---
1800 Pt. needs met this shift, on isolation for MRSA nares, vss, hob at 30 degrees, tolerating feeding.
--- NOTE | 2022-04-25 19:10 | NUR ---
RECEIVED PATIENT IN BED ASLEEP, OPENS EYES UPON TOUCH. NO S/SX OF PAIN NOR DISCOMFORT. NO ACUTE RESPIRATORY DISTRESS NOTED. SKIN WARM AND DRY TO TOUCH. G TUBE FEEDING OF GLUCERNA 1.2 AT 45 ML/HE, NO RESIDUAL NOTED, PLACEMENT VERIFIED VIA AUSCULTATION, HEAD OF THE BED AT 35 DEGREES. BED IN THE LOWEST AND LOCKED POSITION FOR SAFETY, CALL LIGHT IN REACH. IVF INFUSING WELL ORDERED, IV SITE WITH CLEAN DRY AND INTACT DRESSING, NO REDNESS NOTED SWELLING NOTED.
[2022-04-25 20:00] VITALS: BP 103/55
--- NOTE | 2022-04-25 21:37 | NUR ---
INCONTINENT OF URINE AND STOOL, PERINEAL CARE RENDERED. POSITIONED FOR COMFORT.
[2022-04-26] VITALS: BP 133/68
[2022-04-26] MEDS ORDERED: MUPIROCIN CA NASAL 2% 1GM TUBE NS SCH
[2022-04-26] MEDS ORDERED: CHLORHEXADINE GLUC 2% CLOTH TP SCH
--- NOTE | 2022-04-26 00:05 | NUR ---
NO RESIDUAL FROM G-TUBE, FEEDING TOLERATED WELL. PULLED UP AND REPOSITIONED FOR COMFORT. CALL LIGHT IN REACH.
--- NOTE | 2022-04-26 02:03 | NUR ---
ROUNDING DONE. REPOSITIONED PATIENT. BREATHING EVEN AND UNLABORED. CALL LIGHT WITHIN REACH.
[2022-04-26 04:00] VITALS: BP 131/65
--- NOTE | 2022-04-26 05:02 | NUR ---
AM CARE RENDERED. G-TUBE SITE CLEANED AND DRESSING CHANGED. NO RESIDUAL NOTED FROM G-TUBE. ORAL CARE DONE. HEAD OF THE BED ELEVATED AT 35 DEGREES FOR ASPIRATION PRECAUTION. CALL LIGHT IN REACH,
[2022-04-26] MEDS: LEVOTHYROXINE 0.05 MG TAB GT SCH (05:32)
[2022-04-26] MEDS: NACL 0.9% 1,000 ML IV SCH ×2 (05:32→12:09)
--- NOTE | 2022-04-26 06:10 | NUR ---
ALL NEEDS ATTENDED TO. NO ACUTE DISTRESS NOTED. SAFETY PRECAUTIONS MAINTAINED DURING THE SHIFT. NO RESIDUAL FROM G-TUBE. CALL LIGHT REMAINED WITHIN REACH.
[2022-04-26] MEDS: INSULIN LISPRO SLIDING SCALE 100 UNITS/ML VIAL SUBQ PRN ×2 (06:31→11:58)
[2022-04-26] MEDS: BLOOD GLUCOSE MONITORING 1 DEV DEV FS SCH ×2 (06:33→12:02)
[2022-04-26 06:50] LABS: BASOPHILS % (AUTO) 0.5 % (0.0-2.0); EOSINOPHILS # (AUTO) 0.5 K/uL (0-0.4); EOSINOPHILS % (AUTO) 6.5 % (0.0-4.0); HEMATOCRIT 23.6 % (36-48); HEMOGLOBIN 7.2 g/dL (12.0-16.0); LYMPHOCYTES # (AUTO) 1.5 K/uL (2.5-16.5); LYMPHOCYTES % (AUTO) 19.2 % (20.5-51.1); MEAN CORPUSCULAR HEMOGLOBIN 27 pg (27-31); MEAN CORPUSCULAR HGB CONC 30 g/dL (33-37); MONOCYTES # (AUTO) 0.7 K/uL (0.8-1.0); MONOCYTES % (AUTO) 9.5 % (1.7-9.3); NEUTROPHILS # (AUTO) 4.9 K/uL (1.8-7.7); NEUTROPHILS % (AUTO) 64.3 % (42.2-75.2); PLATELET COUNT (AUTO) 321 K/uL (140-450); RED BLOOD CELL COUNT(AUTO) 2.62 MIL/uL (4.20-5.40); RED CELL DISTRIBUTION WIDTH 17.5 % (11.6-13.7); WHITE BLOOD COUNT (AUTO) 7.6 K/uL (4.8-10.8)
[2022-04-26 07:15] LABS: ALBUMIN 1.6 g/dL (3.4-5.0); ANION GAP 12.7 (8-16); ASPARTATE AMINOTRANSFERASE 18 U/L (15-37); CARBON DIOXIDE 19.2 mmol/L (21-32); CHLORIDE 115 mmol/L (98-107); CREATININE 1.3 mg/dL (0.6-1.3); GLUCOSE 197 mg/dL (74-106); MAGNESIUM 2.4 mg/dL (1.8-2.4); POTASSIUM 3.9 mmol/L (3.5-5.1); SODIUM SERUM 143 mmol/L (136-145); TOTAL BILIRUBIN 0.1 mg/dL (0.0-1.0); UREA NITROGEN, BLOOD 17 mg/dL (7-18)
--- NOTE | 2022-04-26 07:35 | NUR ---
SATURATION 99% ON SUPPLEMENTAL OXYGEN AT 4 LPM VIA NC TITRATED FIO2 TO 3 LPM MACROECONOMICS PROFESSOR TO NOTIFY RN
[2022-04-26 08:00] VITALS: BP 141/76
--- NOTE | 2022-04-26 08:00 | NUR ---
RECEIVED REPORT FROM ELECTRIC OPERATOR FOR CONTINUITY OF CARE. PATIENT AWAKE, NON VERBAL, NOT IN ANY DISTRESS NOTED. WITH IVF ON GOING AND INFUSING WELL. WITH GT DRESSING DRY AND INTACT. WITH FEEDING OF GLUCERNA 1.2 @ 45 ML/HR INFUSING WELL. WITH O2 @ 2L NASAL CANNULA SATURATION 99%. ON HEART MONITOR SHOWS SR. ON WOUND BED. BED IN LOW POSITION. CALL LIGHT WITHIN REACH. WILL CONTINUE TO MONITOR.
--- NOTE | 2022-04-26 09:00 | NUR ---
DUE MEDICATIONS GIVEN VIA G-TUBE, NO RESIDUAL NOTED. TOLERATED WELL.
[2022-04-26] MEDS: FLUCONAZOLE 100 MG TAB GT SCH (09:11)
[2022-04-26] MEDS: ZINC SULF 220 MG CAP PO SCH (09:11)
[2022-04-26] MEDS: APIXABAN 2.5 MG TAB GT SCH (09:12)
[2022-04-26] MEDS: ASCORBIC ACID 500 MG TAB GT SCH (09:14)
[2022-04-26] MEDS: INSULIN LANTUS 100 UNITS/ML 10 ML VIAL SUBQ SCH (09:16)
[2022-04-26 12:00] VITALS: BP 141/79
[2022-04-26] MEDS: FOAM DRESSING TP SCH (12:01)
[2022-04-26] MEDS: SKINTEGRITY HYDROGEL TP SCH (12:09)
--- NOTE | 2022-04-26 13:08 | NUR ---
PATIENT ASLEEP, NOT IN DISTRESS. NEW IVF CHANGED. WILL CONTINUE TO MONITOR.
--- NOTE | 2022-04-26 15:45 | NUR ---
SEEN BY DR. CASTILLO WITH ORDER TO TRANSFER BACK TO SNF. NICOLE SOLICITING FREIGHT AGENT MADE AWARE.
[2022-04-26 16:00] VITALS: BP 137/77
--- NOTE | 2022-04-26 16:20 | NUR ---
REPORT GIVEN TO TRIPP MARROQUIN. LEFT MESSAGE TO THE SON MARKY.
--- NOTE | 2022-04-26 16:48 | NUR ---
[facility] TRANSPORT HERE TO [facility]NA[facility] PATIENT VIA GURNEY, IN STABLE CONDITION.
[2022-05-03] MEDS ORDERED: FLUC100T PO (14:46)
== END 2022-04-26 16:50 | DRG 720 ==
LOC: MED 13:19 → MTU 16:05
PROVIDERS: ADMIT Hospitalist; ATTEND Hospitalist
DX: A41.9 Sepsis, unspecified organism (principal); G93.41 Metabolic encephalopathy; E43 Unspecified severe protein-calorie malnutrition; N17.9 Acute kidney failure, unspecified; E87.0 Hyperosmolality and hypernatremia; F03.90 Unspecified dementia, unspecified severity, without behavioral disturbance, psychotic disturbance, mood disturbance, and anxiety; J96.10 Chronic respiratory failure, unspecified whether with hypoxia or hypercapnia; N39.0 Urinary tract infection, site not specified; E11.65 Type 2 diabetes mellitus with hyperglycemia; K21.9 Gastro-esophageal reflux disease without esophagitis; R13.10 Dysphagia, unspecified; J44.9 Chronic obstructive pulmonary disease, unspecified; I10 Essential (primary) hypertension; Z20.822 Contact with and (suspected) exposure to COVID-19; Z68.27 Body mass index [BMI] 27.0-27.9, adult; Z86.73 Personal history of transient ischemic attack (TIA), and cerebral infarction without residual deficits; Z88.8 Allergy status to other drugs, medicaments and biological substances; Z79.899 Other long term (current) drug therapy; Z79.4 Long term (current) use of insulin
CPT/HCPCS: 36415; 36600; 70450; 71045; 80053; 81001; 82803; 82948; 83036; 83605; 83735; 83880; 84484; 85025; 87040; 87081; 87086; 93005; 94640; 96365; 96366; 96367; 96372; 99285; A6248; J0696; J1815; J2543; J3370; J7060

== ENCOUNTER 2022-05-13 11:04 | Inpatient (IN) | payer OTHER, MEDICARE ==
[~2022-05-13] VITALS: Ht 162.6 cm; Wt 66.2 kg
[~2022-05-13 11:04] MED LIST changes: +FLUC100T PO; -FLUC100T1 GT
--- NOTE | 2022-05-13 11:06 | NUR ---
PATIENT BIBA TO BED 3
[2022-05-13 11:12] VITALS: BP 111/72
--- NOTE | 2022-05-13 11:23 | NUR ---
DR. CELIS EVALUATING PATIENT AT BEDSIDE.
[2022-05-13] MEDS ORDERED: NACL 0.9% 1,500 ML IV SCH (11:30)
[2022-05-13] MEDS ORDERED: NACL 0.9% 1,000 ML IV SCH ×2 (11:30→15:20)
[2022-05-13] MEDS ORDERED: NACL 0.9% 2,000 ML IV SCH (11:30)
--- NOTE | 2022-05-13 11:30 | NUR ---
RECEIVED PT FROM SNF C/C HYPERGLYCEMIA AND LOW 02 SATURATION. PT NON VERBAL AT BASELINE. STACH ON MONITOR. ARRIVES ON NON REBREATHER 15L SATURAITON 99%. BREATHING UNLABORED. IV INSERTED TO LEFT THUMB #22GUAGE RIGHT HAND #22GUAGE.
[2022-05-13] MEDS ORDERED: CALCIUM GLUC 1 GM/50 mL NS BAG 50 ML IV ONE (11:35)
--- NOTE | 2022-05-13 12:04 | NUR ---
XRAY AT BEDSIDE
[2022-05-13 12:26] LABS: BASOPHILS # (AUTO) 0.1 K/uL (0.00-0.22); BASOPHILS % (AUTO) 0.8 % (0.0-2.0); EOSINOPHILS # (AUTO) 0.3 K/uL (0-0.4); HEMATOCRIT 35.4 % (36-48); HEMOGLOBIN 10.7 g/dL (12.0-16.0); LYMPHOCYTES # (AUTO) 0.8 K/uL (2.5-16.5); LYMPHOCYTES % (AUTO) 4.9 % (20.5-51.1); MEAN CORPUSCULAR HEMOGLOBIN 27 pg (27-31); MEAN CORPUSCULAR HGB CONC 30 g/dL (33-37); MEAN CORPUSCULAR VOLUME 90.3 fL (80-94); MONOCYTES # (AUTO) 1.2 K/uL (0.8-1.0); MONOCYTES % (AUTO) 7.5 % (1.7-9.3); NEUTROPHILS # (AUTO) 13.1 K/uL (1.8-7.7); NEUTROPHILS % (AUTO) 84.8 % (42.2-75.2); PLATELET COUNT (AUTO) 371 K/uL (140-450); RED BLOOD CELL COUNT(AUTO) 3.92 MIL/uL (4.20-5.40); WHITE BLOOD COUNT (AUTO) 15.5 K/uL (4.8-10.8)
[2022-05-13 12:45] LABS: PROTHROMBIN TIME 12.6 secs (10.8-13.4)
[2022-05-13] MEDS ORDERED: VANCOMYCIN 1,000 MG in DEXTROSE 5% 250 ML IV ONE (12:50)
[2022-05-13] MEDS ORDERED: PIPERACILLIN/TAZOBACTAM 2.25 GM in DEXTROSE 5% 50 ML IV ONE (12:50)
[2022-05-13 12:52] LABS: ALBUMIN 2.2 g/dL (3.4-5.0); ANION GAP 21.1 (8-16); ASPARTATE AMINOTRANSFERASE 21 U/L (15-37); CARBON DIOXIDE 20.8 mmol/L (21-32); CHLORIDE 106 mmol/L (98-107); CREATININE 2.9 mg/dL (0.6-1.3); POTASSIUM 5.9 mmol/L (3.5-5.1); SODIUM SERUM 142 mmol/L (136-145); TOTAL BILIRUBIN 0.3 mg/dL (0.0-1.0)
[2022-05-13] MEDS ORDERED: INSULIN REGULAR, HUMAN 100 UNIT/ML VIAL SUBQ ONE (13:00)
[2022-05-13] MEDS ORDERED: FUROSEMIDE 40 MG/4 ML VIAL IVP ONE (13:00)
[2022-05-13 13:14] LABS: UREA NITROGEN, BLOOD 97 mg/dL (7-18)
[2022-05-13 13:18] LABS: GLUCOSE 730 mg/dL (74-106)
[2022-05-13 13:23] LABS: ACETONE, SERUM NEGATIVE (NEGATIVE)
[2022-05-13] MEDS ORDERED: INSULIN REGULAR, HUMAN 100 UNIT in NACL 0.9% 100 ML IV ONE ×2 (13:25)
[2022-05-13] MEDS ORDERED: VANCOMYCIN 1,000 MG VIAL ONE (13:45)
[2022-05-13] MEDS ORDERED: PIPERACILLIN/TAZOBACTAM 2.25 GM VIAL IV ONE (13:45)
[2022-05-13] MEDS ORDERED: MAG SULF 2000 MG/WATER PREMIX 50 ML IV ONE (13:55)
[2022-05-13] MEDS ORDERED: DEXTROSE 50% 50 ML SYR IVP PRN ×2 (14:00→16:40)
[2022-05-13] MEDS ORDERED: INSULIN REGULAR, HUMAN 100 UNIT in NACL 0.9% 100 ML IV SCH ×4 (14:00→16:40)
[2022-05-13] MEDS ORDERED: VANCOMYCIN PER PHARMACY MC PRN (14:10)
--- NOTE | 2022-05-13 14:20 | NUR ---
INSULIN DRIP INFUSING PER ORDER.
[2022-05-13] MEDS: BLOOD GLUCOSE MONITORING 1 DEV DEV FS SCH ×9 (14:24→23:01)
--- NOTE | 2022-05-13 14:26 | NUR ---
DR. HILL ADMITTING DOCTOR EVALUATING PATIENT AT BEDSIDE.
--- NOTE | 2022-05-13 14:28 | NUR ---
DR HILL AT BEDSIDE
--- NOTE | 2022-05-13 15:10 | NUR ---
REPORT GIVEN TO RN AMANDA
[2022-05-13 15:17] LABS: FREE T4 (FREE THYROXINE) 1.05 ng/dL (0.76-1.46); THYROID STIMULATING HORMONE 0.43 uIU/mL (0.34-3.74)
--- NOTE | 2022-05-13 15:18 | NUR ---
PT TO ICU 5 WITH TRIPP WONG
--- NOTE | 2022-05-13 15:35 | NUR ---
REPORT GIVEN TO POST ANESTHESIA NURSE AT BEDSIDE.
[2022-05-13] MEDS ORDERED: METOCLOPRAMIDE 10 MG/2 ML INJ VIAL IVP PRN (15:45)
[2022-05-13] MEDS ORDERED: ALBUTEROL 0.083% 2.5 MG/3 ML NEBU INH PRN (15:45)
[2022-05-13 15:47] LABS: APPEARANCE,URINE SL CLOUDY (CLEAR); BILIRUBIN,URINE NEGATIVE (NEGATIVE); BLOOD, URINE 3+ (NEGATIVE); COLOR,URINE YELLOW (YELLOW); LEUKOCYTE ESTERASE ,URINE 2+ (NEGATIVE); NITRITE, URINE NEGATIVE (NEGATIVE); PH,URINE 6.5 (5.0-9.0); UGLUCOSE 3+ (NEGATIVE)
[2022-05-13 16:00] VITALS: BP 92/60
[2022-05-13 16:19] LABS: RBC,URINE TOO NUMEROUS TO COUN /HPF (0-5); WBC,URINE TOO MANY TO COUNT /HPF (0-5)
[2022-05-13 16:20] LABS: TRICHOMONAS,URINE None Seen /HPF (None Seen); YEAST,URINE None Seen /HPF (None Seen)
[2022-05-13] MEDS ORDERED: BLOOD GLUCOSE MONITORING 1 DEV DEV FS SCH (16:40)
[2022-05-13 16:53] LABS: ANION GAP 18.4 (8-16); CARBON DIOXIDE 22.1 mmol/L (21-32); CHLORIDE 112 mmol/L (98-107); CREATININE 2.5 mg/dL (0.6-1.3); POTASSIUM 4.5 mmol/L (3.5-5.1); SODIUM SERUM 148 mmol/L (136-145)
[2022-05-13 16:56] LABS: MAGNESIUM 3.9 mg/dL (1.8-2.4); PHOSPHORUS 4.1 mg/dL (2.5-4.9)
[2022-05-13 17:01] LABS: GLUCOSE 492 mg/dL (74-106)
[2022-05-13 17:03] LABS: UREA NITROGEN, BLOOD 93 mg/dL (7-18)
[2022-05-13 18:00] VITALS: BP 105/63
--- NOTE | 2022-05-13 19:47 | NUR ---
PT ALERT AND ORIENTED X0. UNABLE TO ANSWER QUESTIONS. LUNGS CLEAR TO AUSCULTATION. O2 ON 2L VIA NC. ON RENAL DIET BUT HAS G TUBE. ROMERO INTACT AND DRAINING WELL. SINUS RHYTHM ON MONITOR. 22 GAUGE TO LEFT WRIST AND PICC ON NORBERTO. REGULAR INSULIN DRIP ON 0.1IU/KG/HR. NS ON 200ML/HR. CONTRACTED TO LEFT EXTREMITY AND FEET ARE FLACCID. OLD SCAR NOTED NEAR RIGHT HIP. NO S/SX OF PAIN AT THIS TIME. FLACC 0.
[2022-05-13 20:00] VITALS: BP 110/67
[2022-05-13] MEDS: NACL 0.9% 1,000 ML IV SCH ×2 (20:00→21:40)
[2022-05-13] MEDS: PIPERACILLIN/TAZOBACTAM 2.25 GM in DEXTROSE 5% 50 ML IV SCH (20:17)
[2022-05-13] MEDS: APIXABAN 2.5 MG TAB GT SCH (20:18)
[2022-05-13 20:25] LABS: ANION GAP 16.8 (8-16); CARBON DIOXIDE 22.8 mmol/L (21-32); CHLORIDE 115 mmol/L (98-107); CREATININE 2.6 mg/dL (0.6-1.3); GLUCOSE 389 mg/dL (74-106); POTASSIUM 4.6 mmol/L (3.5-5.1); SODIUM SERUM 150 mmol/L (136-145)
[2022-05-13 20:29] LABS: MAGNESIUM 3.9 mg/dL (1.8-2.4)
[2022-05-13 20:31] LABS: UREA NITROGEN, BLOOD 87 mg/dL (7-18)
[2022-05-13] MEDS ORDERED: PIPERACILLIN/TAZOBACTAM 3.375 GM in DEXTROSE 5% 50 ML IV SCH (21:00)
[2022-05-13] MEDS: DEXT 5% / NACL 0.45% 1,000 ML IV SCH ×2 (21:22→21:40)
--- NOTE | 2022-05-13 21:40 | NUR ---
ALL PM MEDS GIVEN.
[2022-05-13 22:00] VITALS: BP_SYST 80; BP_SYST 86; BP_DIAS 46; BP_DIAS 50
[2022-05-14] VITALS (10 sets, daily range): BP systolic 96–120; BP diastolic 52–69
[2022-05-14] MEDS: BLOOD GLUCOSE MONITORING 1 DEV DEV FS SCH ×13 (00:02→18:33)
[2022-05-14] MEDS: NACL 0.9% 1,000 ML IV SCH ×4 (00:02→08:30)
[2022-05-14 00:42] LABS: ANION GAP 14.3 (8-16); CARBON DIOXIDE 24.8 mmol/L (21-32); CHLORIDE 118 mmol/L (98-107); GLUCOSE 232 mg/dL (74-106); POTASSIUM 4.1 mmol/L (3.5-5.1); SODIUM SERUM 153 mmol/L (136-145)
[2022-05-14 00:49] LABS: UREA NITROGEN, BLOOD 79 mg/dL (7-18)
[2022-05-14 00:51] LABS: MAGNESIUM 3.5 mg/dL (1.8-2.4); PHOSPHORUS 3.4 mg/dL (2.5-4.9)
[2022-05-14] MEDS: DEXT 5% / NACL 0.45% 1,000 ML IV SCH ×3 (01:00→12:40)
--- NOTE | 2022-05-14 01:00 | NUR ---
PT REPOSITIONED. NOS S/SX OF PAIN.
--- NOTE | 2022-05-14 04:00 | NUR ---
AM CARE DONE. VITALS WITHIN PATIENT'S PERSONAL RANGE.
[2022-05-14 04:36] LABS: ANION GAP 12.5 (8-16); CARBON DIOXIDE 25.1 mmol/L (21-32); CHLORIDE 119 mmol/L (98-107); CREATININE 1.8 mg/dL (0.6-1.3); GLUCOSE 178 mg/dL (74-106); POTASSIUM 3.6 mmol/L (3.5-5.1); SODIUM SERUM 153 mmol/L (136-145)
[2022-05-14 04:39] LABS: MAGNESIUM 3.4 mg/dL (1.8-2.4); PHOSPHORUS 3.5 mg/dL (2.5-4.9)
[2022-05-14 04:41] LABS: UREA NITROGEN, BLOOD 72 mg/dL (7-18)
[2022-05-14] MEDS: PIPERACILLIN/TAZOBACTAM 2.25 GM in DEXTROSE 5% 50 ML IV SCH ×3 (05:28→21:22)
--- NOTE | 2022-05-14 07:22 | NUR ---
REPORT GIVEN TO AM SHIFT NURSE TRIPP LUCERO.
[2022-05-14 07:49] LABS: ANION GAP 14.4 (8-16); CARBON DIOXIDE 23.1 mmol/L (21-32); CHLORIDE 118 mmol/L (98-107); CREATININE 1.8 mg/dL (0.6-1.3); GLUCOSE 208 mg/dL (74-106); POTASSIUM 3.5 mmol/L (3.5-5.1); SODIUM SERUM 152 mmol/L (136-145)
[2022-05-14 07:51] LABS: UREA NITROGEN, BLOOD 66 mg/dL (7-18)
[2022-05-14 07:52] LABS: MAGNESIUM 3.4 mg/dL (1.8-2.4); PHOSPHORUS 3.4 mg/dL (2.5-4.9)
[2022-05-14] MEDS ORDERED: VANCOMYCIN HCL 1.25 GM in DEXTROSE 5% 250 ML IV SCH (09:00)
--- NOTE | 2022-05-14 09:20 | NUR ---
PATIENT HAS BEEN SCREENED AND CATEGORIZED HIGH NUTRITION RISK. PATIENT WILL BE SEEN WITHIN 1-2 DAYS OF ADMISSION. RECEIVED FNS REFERRAL. 05/14/22-05/15/22 REVIEWED BY ELVIRA DALEY RD
[2022-05-14] MEDS: ASCORBIC ACID 500 MG TAB GT SCH (09:55)
[2022-05-14] MEDS: ZINC SULF 220 MG CAP GT SCH (09:55)
[2022-05-14] MEDS: APIXABAN 2.5 MG TAB GT SCH ×2 (09:56→21:23)
[2022-05-14] MEDS: LEVOTHYROXINE 0.05 MG TAB GT SCH (09:56)
--- NOTE | 2022-05-14 12:10 | NUR ---
WOUND CARE NOTE: SKIN ASSESSMENT DONE WITH THIS 72 Y/O PT RECENTLY DISCHARGED TO SNF AND READMITTED WITH DX: DKA, SEPSIS. PAST MEDICAL HISTORY OF CVA, DIABETES MELLITUS, COPD, DEMENTIA, HYPERTENSION AND GERD. POC DISCUSSED WITH PRIMARY RN. INTEGUMENTARY: - RIGHT POSTEIOR LEG NEAR TIBIA STAGE III ULCER 2.5 X 1 X 0 CM, WOUND BED 100% RED GRAUNULATION WITHOUT SLOUGH, MINIMAL SEROUS DISCHARGE, NO ODOR. PERIWOUND PINK, INTACT. - LEFT BUTTOCK JUSTIN-ANAL AREA IAD 2 X 2 X 0 CM, NO DISCHARGE, NO ODOR. PERIWOUND RED, INTACT. - SACRALCOCCYX OLD HEALED DRY SCAR TISSUE, MOIST AND INTACT - GTUBE STOMA REDNESS, INTACT. RECOMMENDATIONS: - RIGHT POSTERIOR LEG NEAR TIBIA STAGE III ULCER: CLEANSE WITH NS, PAT DRY, APPLY HYDROGEL, AND OVER WITH FOAM DRESSING DAILY AND PRN IF SOILED. - LEFT BUTTOCK JUSTIN-ANAL AREA:CLEANSE WITH NS, PAT DRY, APPLY Z-GAURD CREAM, AND LEAVE COOK AT SCHOOL BID AND PRN IF SOILED. - CLEANSE GT SITE JUSTIN STOMA SKIN WITH NS, PAT DRY, APPLY Z GUARD AND COVER WITH DRY GAUZE QD AND PRN IF SOILING - OFFLOAD BILATERAL HEELS BY PLACING BILATERAL HEEL PROTECTORS. - TURN AND REPOSITION PATIENT Q2H TO LEFT AND RIGHT SIDE TO OFFLOAD SACRALCOCCYX. - ASSESS AND MONITOR SKIN CONDITION DURING POSITION CHANGE. PLEASE PAY ATTENTION TO SACRALCOCCYX AND HEELS. - KEEP SKIN DRY AND CLEAN AT ALL TIMES. - RD CONSULT RECOMMENDATIONS DISCUSSED WITH PRIMARY RN. WILL FOLLOW-UP PATIENT Q7-10 DAYS AND PRN. PLEASE CONTACT WOUND CARE NURSE FOR ANY CONCERNS AND CHANGES IN WOUND CONDITION.
[2022-05-14 12:27] LABS: ANION GAP 11.8 (8-16); CARBON DIOXIDE 23.2 mmol/L (21-32); CHLORIDE 119 mmol/L (98-107); CREATININE 1.6 mg/dL (0.6-1.3); GLUCOSE 219 mg/dL (74-106); SODIUM SERUM 151 mmol/L (136-145); UREA NITROGEN, BLOOD 58 mg/dL (7-18)
[2022-05-14] MEDS: INSULIN LANTUS 100 UNITS/ML 10 ML VIAL SUBQ SCH ×2 (13:02→22:46)
[2022-05-14 14:35] LABS: BASOPHILS % (AUTO) 0.3 % (0.0-2.0); EOSINOPHILS # (AUTO) 1.2 K/uL (0-0.4); HEMATOCRIT 27.2 % (36-48); HEMOGLOBIN 8.1 g/dL (12.0-16.0); LYMPHOCYTES # (AUTO) 0.9 K/uL (2.5-16.5); LYMPHOCYTES % (AUTO) 7.7 % (20.5-51.1); MEAN CORPUSCULAR HEMOGLOBIN 27 pg (27-31); MEAN CORPUSCULAR HGB CONC 30 g/dL (33-37); MEAN CORPUSCULAR VOLUME 89.4 fL (80-94); MONOCYTES # (AUTO) 0.8 K/uL (0.8-1.0); MONOCYTES % (AUTO) 6.9 % (1.7-9.3); NEUTROPHILS # (AUTO) 8.7 K/uL (1.8-7.7); NEUTROPHILS % (AUTO) 75.1 % (42.2-75.2); PLATELET COUNT (AUTO) 257 K/uL (140-450); RED BLOOD CELL COUNT(AUTO) 3.04 MIL/uL (4.20-5.40); RED CELL DISTRIBUTION WIDTH 17.7 % (11.6-13.7); WHITE BLOOD COUNT (AUTO) 11.6 K/uL (4.8-10.8)
[2022-05-14] MEDS ORDERED: POTASSIUM CHLORIDE 20% 40 MEQ/15 ML UDC GT SCH (15:00)
[2022-05-14] MEDS: NACL 0.45% 1,000 ML IV SCH (16:58)
[2022-05-14] MEDS: KCL 20 MEQ/WATER INJ PREMIX 100 ML IV SCH ×2 (17:02→18:36)
--- NOTE | 2022-05-14 17:15 | NUR ---
REPORT GIVEN TO TRIPP FELTON OF [facility]. TELE MONITOR PLACED ON PATIENT. PATIENT TO BE TRANSFERRED AT THIS TIME.
--- NOTE | 2022-05-14 17:16 | NUR ---
RECEIVED PATIENT FROM ICU, NURSE FOR CONTINUITY OF CARE. PT IS STABLE.
[2022-05-14] MEDS: INSULIN LISPRO SLIDING SCALE 100 UNITS/ML VIAL SUBQ PRN (18:34)
--- NOTE | 2022-05-14 19:40 | NUR ---
ENDORSED TO ASSOCIATE FACULTY NURSE FOR CONTINUITY OF CARE. PT IS STABLE.
--- NOTE | 2022-05-14 22:48 | NUR ---
PATIENT NON VERBAL NO TRACKING 02 ON 4 LITERS N/C SAT 91%. ON MONITOR SINUS . TEMP 97.8 B/P 111/68. HAS RIGHT UPPER PICC LINE AND IN LEFT WRIST 22 GA HL. HAS 1/2NS 60 HOUR. GLUCERNIA 1.2 50 HOUR NO RESIDUAL. GETS WATER FLUSH 250CC EVERY FOUR HOURS. HAS F/C DRAINING BAYLEE URINE. BLOOD SUGAR 2100 260 GIVEN LANTUS 28 UNITS. S.Q. NO SIGNS OF DISTRESS.
[2022-05-15] VITALS (7 sets, daily range): BP systolic 104–116; BP diastolic 58–79
[2022-05-15] MEDS: INSULIN LISPRO SLIDING SCALE 100 UNITS/ML VIAL SUBQ PRN ×3 (00:31→12:27)
[2022-05-15] MEDS: SKINTEGRITY HYDROGEL TP SCH ×2 (01:30→12:30)
[2022-05-15] MEDS: Z-GUARD PASTE TP SCH ×2 (01:30→12:29)
[2022-05-15] MEDS: PIPERACILLIN/TAZOBACTAM 2.25 GM in DEXTROSE 5% 50 ML IV SCH ×3 (04:44→21:58)
[2022-05-15] MEDS: BLOOD GLUCOSE MONITORING 1 DEV DEV FS SCH ×4 (06:00→18:12)
[2022-05-15] MEDS: NACL 0.45% 1,000 ML IV SCH (08:35)
[2022-05-15 08:50] LABS: CARBON DIOXIDE 18.9 mmol/L (21-32); CHLORIDE 116 mmol/L (98-107); CREATININE 1.3 mg/dL (0.6-1.3); GLUCOSE 235 mg/dL (74-106); POTASSIUM 4.9 mmol/L (3.5-5.1); SODIUM SERUM 145 mmol/L (136-145); UREA NITROGEN, BLOOD 45 mg/dL (7-18)
[2022-05-15 08:52] LABS: BASOPHILS # (AUTO) 0.1 K/uL (0.00-0.22); BASOPHILS % (AUTO) 0.6 % (0.0-2.0); EOSINOPHILS # (AUTO) 1.2 K/uL (0-0.4); LYMPHOCYTES # (AUTO) 1.1 K/uL (2.5-16.5); LYMPHOCYTES % (AUTO) 10.6 % (20.5-51.1); MEAN CORPUSCULAR HEMOGLOBIN 28 pg (27-31); MEAN CORPUSCULAR HGB CONC 31 g/dL (33-37); MEAN CORPUSCULAR VOLUME 89.8 fL (80-94); MONOCYTES # (AUTO) 0.7 K/uL (0.8-1.0); NEUTROPHILS # (AUTO) 7.5 K/uL (1.8-7.7); NEUTROPHILS % (AUTO) 70.8 % (42.2-75.2); PLATELET COUNT (AUTO) 265 K/uL (140-450); RED CELL DISTRIBUTION WIDTH 17.8 % (11.6-13.7); WHITE BLOOD COUNT (AUTO) 10.7 K/uL (4.8-10.8)
[2022-05-15] MEDS: INSULIN LISPRO 100 UNITS/ML VIAL SUBQ SCH ×4 (09:00→17:00)
[2022-05-15] MEDS: INSULIN LANTUS 100 UNITS/ML 10 ML VIAL SUBQ SCH ×2 (09:00→21:00)
[2022-05-15] MEDS: ZINC SULF 220 MG CAP GT SCH (10:33)
[2022-05-15] MEDS: APIXABAN 2.5 MG TAB GT SCH ×2 (10:34→21:59)
[2022-05-15] MEDS: LEVOTHYROXINE 0.05 MG TAB GT SCH (10:34)
[2022-05-15] MEDS: ASCORBIC ACID 500 MG TAB GT SCH (10:34)
[2022-05-15] MEDS: VANCOMYCIN 1,000 MG in DEXTROSE 5% 250 ML IV SCH (11:32)
--- NOTE | 2022-05-15 12:52 | NUR ---
05/15/2022 RD INITIAL ASSESSMENT COMPLETED.PLEASE REFER TO NUTRITION ASSESSMENT UNDER CARE ACTIVITY FOR ESTIMATED NUTRITIONAL NEEDS. CONTINUE GLUCERNA 1.2 @ 50ML/HR; FWF 250 Q4H. CONTINUE TO SUPPLEMENT WITH PROSOURCE FOR WOUNDS MONITOR FOR GASTRIC RESIDUAL RD TO FOLLOW-UP IN 2-3 DAYS PATIENT IS HIGH RISK. DONAVAN STANFORD RD
[2022-05-15 16:44] LABS: T4 (THYROXINE) 13.3 ug/dL (4.5 - 12.0)
--- NOTE | 2022-05-15 19:35 | NUR ---
RECEIVED REPORT FROM AM NURSE. PATIENT IS NON VERBAL WELL RESTED IN BED. ON 2L NC TOLERATING WELL SATING AT 96%. NO SOB NOTED. BREATHING REGULAR NON LABORED. FLACC 0. ALL SAFETY PRECAUTIONS ARE IN PLACE. WHEELS OF BED LOCKED. G-TUBE FEEDING GLUCERNA 1.2 RUNNING AT 50 ML/HR TOLERATING WELL. NO RESIDUAL NOTED. HEAD OF BED ELEVATED AT ALL TIMES. CALL LIGHT WITHIN REACH. WILL CONTINUE TO MONITOR PT.
--- NOTE | 2022-05-15 19:51 | NUR ---
ENDORSE PATIENT TO PM SHIFT NURSE WHILE PATIENT REST IN BED, PICC NORBERTO INFUSING 1/2NS @60ML/HR, PEG-TUBE INFUSING GLUCERNA @50ML/HR W/ 250 ML H2O FLUSHING Q4HRS. ON 2 LITER VIA NC. ROMERO DRAINING.
--- NOTE | 2022-05-15 21:58 | NUR ---
ALL SCHEDULED MEDICATIONS ADMINISTERED ORDERED.
[2022-05-16] VITALS: BP 112/59
[2022-05-16] MEDS: BLOOD GLUCOSE MONITORING 1 DEV DEV FS SCH ×4 (00:21→17:40)
--- NOTE | 2022-05-16 00:21 | NUR ---
BLOOD SUGAR CHECK WAS 111 NO INSULIN COVERAGE NEEDED.
[2022-05-16] MEDS: Z-GUARD PASTE TP SCH ×2 (01:00→13:00)
[2022-05-16] MEDS: SKINTEGRITY HYDROGEL TP SCH ×2 (01:00→13:00)
[2022-05-16] MEDS: NACL 0.45% 1,000 ML IV SCH (01:15)
--- NOTE | 2022-05-16 02:30 | NUR ---
PATIENT CLEANED, CHANGED AND REPOSITIONED. NO DISTRESS NOTED.
[2022-05-16 04:00] VITALS: BP 108/67
[2022-05-16] MEDS: PIPERACILLIN/TAZOBACTAM 2.25 GM in DEXTROSE 5% 50 ML IV SCH ×2 (05:17→13:00)
[2022-05-16 07:04] LABS: ANION GAP 14.2 (8-16); CARBON DIOXIDE 19.7 mmol/L (21-32); CHLORIDE 113 mmol/L (98-107); CREATININE 1.1 mg/dL (0.6-1.3); GLUCOSE 160 mg/dL (74-106); POTASSIUM 4.9 mmol/L (3.5-5.1); SODIUM SERUM 142 mmol/L (136-145); UREA NITROGEN, BLOOD 29 mg/dL (7-18)
--- NOTE | 2022-05-16 07:35 | NUR ---
PATIENT STABLE. ENDORSED TO DAY SHIFT NURSE FOR CONTINUITY OF CARE.
[2022-05-16 08:00] VITALS: BP 133/74
[2022-05-16] MEDS: INSULIN LANTUS 100 UNITS/ML 10 ML VIAL SUBQ SCH (09:00)
[2022-05-16] MEDS: ZINC SULF 220 MG CAP GT SCH (10:02)
[2022-05-16] MEDS: ASCORBIC ACID 500 MG TAB GT SCH (10:02)
[2022-05-16] MEDS: LEVOTHYROXINE 0.05 MG TAB GT SCH (10:02)
[2022-05-16] MEDS: APIXABAN 2.5 MG TAB GT SCH (10:03)
[2022-05-16] MEDS: INSULIN LISPRO 100 UNITS/ML VIAL SUBQ SCH ×3 (10:05→17:54)
[2022-05-16] MEDS: VANCOMYCIN 1,000 MG in DEXTROSE 5% 250 ML IV SCH (11:52)
[2022-05-16 12:00] VITALS: BP 123/75
--- NOTE | 2022-05-16 14:13 | NUR ---
FL PLANNING REFERRAL PACKET SENT TO [facility] BY [facility]. PATIENT ASSIGNED TO ROOM 3B. [facility]SP[facility] REQUEST FAXED OVER TO [phone] Addendum: 05/16/22 at 1525 by Brayden ZULUAGA FIELDED CALL FORM NIKOLAS WITH [facility] WHO REPORTED THAT TRANSPORTATION WILL BE BE PROVIDED BY [employer] [facility] [phone]. PICKUP IS SCHEDULED FOR 5:00PM. SW ENDORSED TO CHARGE NURSE.
[2022-05-16 16:00] VITALS: BP 116/70
--- NOTE | 2022-05-16 19:10 | NUR ---
[facility] IS HERE AFTER 1800 AND BINDERY TECHNICIAN PATIENT FOR [facility]. DISCHARGE PACKAGE COMPLETE, REPORT GIVE TO MANINDER, PATIENT'S SON CALLED AND INFORM THAT PATIENT IS TRANSFER BACK TO [facility]; WRIST BAND REMOVED BEFORE PATIENT LEFT. DR. MCDONALD AWARE THAT PATIENT LEFT W/ ROMERO, NORBERTO PICC LINE, AND PEG-TUBE IN PLACE BEFORE DISCHARGE PATIENT.
== END 2022-05-16 18:25 | DRG 720 ==
LOC: MED 11:04 → MTU 14:06 → MIC 14:21 → MTU 05-14 17:45
PROVIDERS: ADMIT Student in an Organized Health Care Education/Training Program; ATTEND Student in an Organized Health Care Education/Training Program
DX: A41.9 Sepsis, unspecified organism (principal); J69.0 Pneumonitis due to inhalation of food and vomit; E11.00 Type 2 diabetes mellitus with hyperosmolarity without nonketotic hyperglycemic-hyperosmolar coma (NKHHC); J96.01 Acute respiratory failure with hypoxia; N17.9 Acute kidney failure, unspecified; R64 Cachexia; E11.10 Type 2 diabetes mellitus with ketoacidosis without coma; I69.354 Hemiplegia and hemiparesis following cerebral infarction affecting left non-dominant side; R65.20 Severe sepsis without septic shock; N39.0 Urinary tract infection, site not specified; R53.81 Other malaise; N18.9 Chronic kidney disease, unspecified; K21.9 Gastro-esophageal reflux disease without esophagitis; R13.10 Dysphagia, unspecified; Z20.822 Contact with and (suspected) exposure to COVID-19; E87.5 Hyperkalemia; J44.0 Chronic obstructive pulmonary disease with (acute) lower respiratory infection; I12.9 Hypertensive chronic kidney disease with stage 1 through stage 4 chronic kidney disease, or unspecified chronic kidney disease; E11.22 Type 2 diabetes mellitus with diabetic chronic kidney disease; Z79.899 Other long term (current) drug therapy; Z82.5 Family history of asthma and other chronic lower respiratory diseases; Z82.3 Family history of stroke; Z82.49 Family history of ischemic heart disease and other diseases of the circulatory system; Z74.01 Bed confinement status
CPT/HCPCS: 36415; 36600; 70450; 71045; 76770; 80048; 80053; 80202; 81001; 82009; 82550; 82553; 82803; 82947; 82948; 83036; 83605; 83735; 84100; 84300; 84436; 84439; 84443; 84479; 84484; 85025; 85610; 85730; 87040; 87081; 87086; 93005; 96361; 96365; 96367; 96375; 99291; A6248; J1815; J1940; J2543; J3370; J3480; J7060; Q0092

== ENCOUNTER 2022-07-01 11:55 | Inpatient (IN) | payer OTHER, MEDICARE ==
[~2022-07-01] VITALS: Ht 172.7 cm; Wt 77.5 kg
[~2022-07-01 11:55] MED LIST changes: +ACET-1182 PO; +ALBU3SOL83 IH; +ATI2I IVP; -FLUC100T PO; -GLIP5TER GT; -HUMSLIDE SUBQ; +Vancomycin Per Pharmacy MC; +[UNRECOGNIZED DRUG - CODE] PO
[2022-07-01] MEDS ORDERED: NACL 0.9% 2,000 ML IV ONE (12:00)
[2022-07-01] MEDS ORDERED: PANTOPRAZOLE 40 MG INJ VIAL IVP ONE (12:00)
[2022-07-01] MEDS ORDERED: ACETAMINOPHEN 650 MG SUPP RC ONE ×2 (12:00)
--- NOTE | 2022-07-01 12:15 | NUR ---
biba from cec d/t elevated hr in 180s and hematemesis episode 5 hrs ago. pt is trached and vent. fever of 100.2 rectal at triage. presents with gtube to the left abd, sanderson, and picc line to right upper arm. RT AT BEDSIDE FOR VENT PLACEMENT. ON MONITOR.
[2022-07-01 12:17] VITALS: BP 121/73
--- NOTE | 2022-07-01 12:20 | NUR ---
PICC LINE PATENT ON ONE LUMEN. UNABLE TO FLUSH THE OTHER LUMEN. ERMD AWARE.
--- NOTE | 2022-07-01 12:26 | NUR ---
xr taken. went for ct accompanied by RT and RN
--- NOTE | 2022-07-01 12:40 | NUR ---
PT BACK FROM CT
[2022-07-01] MEDS ORDERED: PIPERACILLIN/TAZOBACTAM 3.375 GM in DEXTROSE 5% 50 ML IV ONE (12:55)
[2022-07-01] MEDS ORDERED: VANCOMYCIN 1,000 MG in DEXTROSE 5% 250 ML IV ONE (12:55)
[2022-07-01] MEDS ORDERED: PIPERACILLIN/TAZOBACTAM 3.375 GM VIAL IV ONE ×2 (13:04→22:10)
[2022-07-01 13:20] LABS: BASOPHILS # (AUTO) 0.1 K/uL (0.00-0.22); BASOPHILS % (AUTO) 0.4 % (0.0-2.0); EOSINOPHILS # (AUTO) 0.2 K/uL (0-0.4); EOSINOPHILS % (AUTO) 1.2 % (0.0-4.0); HEMOGLOBIN 7.4 g/dL (12.0-16.0); LYMPHOCYTES # (AUTO) 0.4 K/uL (2.5-16.5); LYMPHOCYTES % (AUTO) 2.3 % (20.5-51.1); MEAN CORPUSCULAR HEMOGLOBIN 26 pg (27-31); MEAN CORPUSCULAR HGB CONC 31 g/dL (33-37); MONOCYTES # (AUTO) 0.7 K/uL (0.8-1.0); NEUTROPHILS # (AUTO) 15.9 K/uL (1.8-7.7); NEUTROPHILS % (AUTO) 92.1 % (42.2-75.2); PLATELET COUNT (AUTO) 407 K/uL (140-450); RED BLOOD CELL COUNT(AUTO) 2.86 MIL/uL (4.20-5.40); RED CELL DISTRIBUTION WIDTH 17.4 % (11.6-13.7); WHITE BLOOD COUNT (AUTO) 17.2 K/uL (4.8-10.8)
[2022-07-01 13:29] LABS: PROTHROMBIN TIME 11.5 secs (10.8-13.4)
--- NOTE | 2022-07-01 13:30 | NUR ---
OPEN WOUND NOTED TO RIGHT CALF. WOUND PIC TAKEN.
--- NOTE | 2022-07-01 13:33 | NUR ---
URINE, FLU, AND CASTRO COLLECTED AND SENT TO LAB
--- NOTE | 2022-07-01 13:45 | NUR ---
URINE COLLECTED AND SENT TO LAB
--- NOTE | 2022-07-01 14:00 | NUR ---
CONSERVATOR/POA NOT AVAILABLE TO BE REACHED. PER ERMD, PROCEED WITH EMERGENCY CONSENT FOR PICCLINE PLACEMENT.
[2022-07-01 14:10] LABS: ALBUMIN 1.8 g/dL (3.4-5.0); ANION GAP 20.2 (8-16); ASPARTATE AMINOTRANSFERASE 21 U/L (15-37); CARBON DIOXIDE 21.3 mmol/L (21-32); CHLORIDE 102 mmol/L (98-107); CREATININE 1.3 mg/dL (0.6-1.3); GLUCOSE 251 mg/dL (74-106); LIPASE 187 U/L (73-393); POTASSIUM 4.5 mmol/L (3.5-5.1); SODIUM SERUM 139 mmol/L (136-145); TOTAL BILIRUBIN 0.2 mg/dL (0.0-1.0); UREA NITROGEN, BLOOD 47 mg/dL (7-18)
--- NOTE | 2022-07-01 14:14 | NUR ---
PICC LINE NURSE XIAO ALMAGUER AT BEDSIDE FOR PICC LINE PLACEMENT.
[2022-07-01 14:36] LABS: APPEARANCE,URINE CLEAR (CLEAR); BILIRUBIN,URINE NEGATIVE (NEGATIVE); BLOOD, URINE 3+ (NEGATIVE); COLOR,URINE YELLOW (YELLOW); LEUKOCYTE ESTERASE ,URINE TRACE (NEGATIVE); NITRITE, URINE POSITIVE (NEGATIVE); UGLUCOSE TRACE (NEGATIVE)
--- NOTE | 2022-07-01 14:44 | NUR ---
PICC LINE INSERTION COMPLETED. PENDING XR CONFIRMATION
[2022-07-01] MEDS ORDERED: VANCOMYCIN 1,000 MG VIAL ONE (15:00)
[2022-07-01] MEDS ORDERED: PANTOPRAZOLE 40 MG INJ VIAL ONE (15:00)
[2022-07-01 15:05] LABS: RBC,URINE 50-80 /HPF (0-5); WBC,URINE 16-25 (MOD) /HPF (0-5)
[2022-07-01] MEDS ORDERED: VANCOMYCIN PER PHARMACY MC PRN (15:05)
[2022-07-01] MEDS ORDERED: HYDROcodone/APAP 5/325 MG 1 TAB TAB PO PRN (15:05)
[2022-07-01] MEDS ORDERED: MAG SULF 2000 MG/WATER PREMIX 50 ML IV PRN (15:05)
[2022-07-01] MEDS ORDERED: KCL 20 MEQ/WATER INJ PREMIX 200 ML IV PRN (15:05)
[2022-07-01] MEDS ORDERED: ONDANSETRON 4 MG/2 ML VIAL IVP PRN (15:05)
[2022-07-01] MEDS ORDERED: MAGNESIUM OXIDE 400 MG TAB PO PRN (15:05)
[2022-07-01] MEDS ORDERED: POTASSIUM CHLORIDE 10 MEQ TABER PO PRN (15:05)
[2022-07-01] MEDS ORDERED: MORPHINE SULFATE 4 MG/ML SYR IVP PRN (15:05)
[2022-07-01 15:06] LABS: TRICHOMONAS,URINE None Seen /HPF (None Seen); YEAST,URINE None Seen /HPF (None Seen)
[2022-07-01] MEDS ORDERED: LORazepam 2 MG/ML VIAL IVP PRN (15:40)
[2022-07-01] MEDS ORDERED: NITROGLYCERIN 50 MG/D5W PREMIX 250 ML IV ONE (17:46)
--- NOTE | 2022-07-01 18:37 | NUR ---
REMOVED TRACH SUTURES, PLACED SPLIT GAUZE UNDER TRACH PLATE. PT IS IN NO DISTRESS
--- NOTE | 2022-07-01 19:10 | NUR ---
RECEIVED REPORT ON PT FRO0M OUT GOING RN. PT IS LYING SUPINE ON QA VENTILATOR TO ETT. SETTING AC [id number]%, TV 450, RATE 18, AND PEEP 5. HER CURRENT BLOOD PRESSURE IS104/58 AND DROPPED TO 81/46.BUT RECYCLED BACK TO 90/52. SHE IS NOT TRACKING AND DOESN'T FOLLOW SIMPLE COMMANDS.DRSG APPPLIED TO THE PEG TUBE SITE. ROMERO CATH CHANGE. A 16FR CATH INSERTED WITH GOOD URINE RETURN AND STST LOCK PLACED ON THE RIGHT THIGH.
--- NOTE | 2022-07-01 20:15 | NUR ---
SPUTUM SPECIMEN COLLECTED VIA ROD AND TUBE STRAIGHTENER
[2022-07-01] MEDS: ALBUTEROL SULFATE/IPRATROPIU 3 ML SOL IH SCH (20:23)
[2022-07-01] MEDS ORDERED: LEVETIRACETAM 500 MG PO SCH (21:00)
[2022-07-01] MEDS: PIPERACILLIN/TAZOBACTAM 3.375 GM in DEXTROSE 5% 50 ML IV SCH (21:00)
--- NOTE | 2022-07-01 22:45 | NUR ---
PATIENT PENDING TRANSFER FROM ICU TO TELE BED 108B RECEIVED ENDORSEMENT FROM PREVIOUSLY ASSIGNED ACADEMIC AFFAIRS DIRECTOR RN (FREDRICK) PATIENT IS TRACH TO VENT CURRENT VENT SETTINGS -AC/VC -FIO2 = 35% -TIDAL VOLUME = 450 -RATE = 18 -PEEP = 5 PATIENT HAS NORBERTO PICC LINE WHICH IS NOT WORKING, UNABLE TO FLUSH PATIENT HAS NEWLY PLACED MAZIN PICC LINE, GOOD BLOOD RETURN, CAN FLUSH PATIENT HAS NS RUNNING AT 80ML/HR PATIENT HAS ROMERO IN PLACE PATIENT IS NON VERBAL, BUT RESPONDS TO STIMULI PATIENT HAS THE FOLLOWING CULTURE RESULTS PENDING; SAMPLES HAVE ALREADY BEEN OBTAINED: -SPUTUM -URINE -BLOOD PATIENT HAS PEG, NO ORDERS FOR FEEDING AT THIS TIME
--- NOTE | 2022-07-01 23:15 | NUR ---
PATIENT HAS BEEN TRANSFERRED TO [facility], ROOM 108B WITH THE HELP OF RT WHO PROVIDED RESPIRATORY SUPPORT. PATIENT WAS SUCCESSFULLY TRANSFERRED FROM ICU BED, AND PLACED IN SEMI ORDONEZ, LOWEST POSITION, HOB ELEVATED TO 30 DEGREES WILL CONTINUE TO MONITOR PATIENT FOR ANY ADDITIONAL NEEDS
[2022-07-02] VITALS (8 sets, daily range): BP systolic 113–146; BP diastolic 56–72
[2022-07-02] MEDS: ALBUTEROL SULFATE/IPRATROPIU 3 ML SOL IH SCH ×4 (00:09→19:10)
--- NOTE | 2022-07-02 04:10 | NUR ---
RT AT BEDSIDE, FI02 DECREASED FROM 35% TO 30% PATIENT REMAINS STABLE
[2022-07-02] MEDS: NACL 0.9% 1,000 ML IV SCH ×3 (04:44→21:40)
[2022-07-02] MEDS ORDERED: PIPERACILLIN/TAZOBACTAM 3.375 GM VIAL IV ONE (05:16)
[2022-07-02] MEDS: PIPERACILLIN/TAZOBACTAM 3.375 GM in DEXTROSE 5% 50 ML IV SCH ×3 (05:48→21:48)
--- NOTE | 2022-07-02 06:58 | NUR ---
RT AT BEDSIDE
[2022-07-02 07:04] LABS: HEMATOCRIT 20.9 % (36-48); MEAN CORPUSCULAR HEMOGLOBIN 26 pg (27-31); MEAN CORPUSCULAR HGB CONC 31 g/dL (33-37); MEAN CORPUSCULAR VOLUME 84.4 fL (80-94); PLATELET COUNT (AUTO) 358 K/uL (140-450); RED BLOOD CELL COUNT(AUTO) 2.47 MIL/uL (4.20-5.40); RED CELL DISTRIBUTION WIDTH 17.3 % (11.6-13.7); WHITE BLOOD COUNT (AUTO) 11.6 K/uL (4.8-10.8)
[2022-07-02 07:13] LABS: HEMOGLOBIN 6.5 g/dL (12.0-16.0)
--- NOTE | 2022-07-02 07:16 | NUR ---
CRITICAL LAB CALL RECEIVED FROM LAB (BAMBI): PATIENT WITH HGB = 6.5, WILL ENDORSE TO DAY SHIFT
[2022-07-02 07:24] LABS: ALBUMIN 1.6 g/dL (3.4-5.0); ANION GAP 17.4 (8-16); ASPARTATE AMINOTRANSFERASE 30 U/L (15-37); BASOPHILS % (MANUAL) 0 % (0-2); CARBON DIOXIDE 20.8 mmol/L (21-32); CHLORIDE 108 mmol/L (98-107); CREATININE 1.2 mg/dL (0.6-1.3); EOSINOPHILS % (MANUAL) 2 % (0-4); GLUCOSE 163 mg/dL (74-106); LYMPHOCYTES % (MANUAL) 8 % (20-46); MAGNESIUM 2.6 mg/dL (1.8-2.4); MONOCYTES % (MANUAL) 6 % (5-12); POTASSIUM 4.2 mmol/L (3.5-5.1); SODIUM SERUM 142 mmol/L (136-145); TOTAL BILIRUBIN 0.2 mg/dL (0.0-1.0); UREA NITROGEN, BLOOD 36 mg/dL (7-18)
--- NOTE | 2022-07-02 07:34 | NUR ---
TRANSFER OF CARE TO DAY SHIFT (TRIPP DEMARCO) PATIENT STABLE AT THIS TIME
--- NOTE | 2022-07-02 08:06 | NUR ---
PATIENT H&H [phone]. DR. MCDONALD NOTIFIED AND ORDERS GIVEN TO TRANSFUSE 1 UNIT [facility]. ORDERS PLACED. TRANSFUSION TELEPHONE CONSENT OBTAINED FROM SON VIOLET NEGRO FOR BLOOD TRANSFUSION. WILL TRANSFUSE BLOOD WHEN READY FROM BLOOD BANK. Susan BROWN RN.
[2022-07-02] MEDS ORDERED: NON-FORMULARY ITEM (Cholecalciferol (Vitamin D3) (Vitamin D3) 2,000 U) GT SCH (09:00)
[2022-07-02] MEDS ORDERED: PANTOPRAZOLE 40 MG INJ VIAL IVP SCH (09:00)
[2022-07-02] MEDS: INSULIN LANTUS 100 UNITS/ML 10 ML VIAL SUBQ SCH ×2 (09:00→21:00)
[2022-07-02] MEDS: PANTOPRAZOLE 40 MG INJ VIAL IVP SCH ×2 (09:26→21:48)
[2022-07-02] MEDS: LEVOTHYROXINE 0.05 MG TAB GT SCH (09:26)
[2022-07-02] MEDS: ZINC SULF 220 MG CAP PO SCH (09:27)
[2022-07-02] MEDS: ASCORBIC ACID 500 MG TAB GT SCH (09:27)
--- NOTE | 2022-07-02 10:50 | NUR ---
[facility] BLOOD TRANSFUSION STARTED AT 1050. Susan BROWN RN.
--- NOTE | 2022-07-02 11:11 | NUR ---
PATIENT TOLERATING BLOOD TRANSFUSION WELL WITH NO ADVERSE REACTION NOTED. WILL CONTINUE TO MONITOR FOR SAFETY. Susan BROWN RN.
[2022-07-02] MEDS: levETIRAcetam 100 MG/ML ORASYR GT SCH ×2 (11:39→21:49)
--- NOTE | 2022-07-02 12:04 | NUR ---
DR. JAQUEZ AT BEDSIDE TO DO EGD. Susan BROWN RN.
[2022-07-02] MEDS ORDERED: MIDAZOLAM 5 MG/5 ML VIAL ONE (12:18)
[2022-07-02] MEDS ORDERED: diphenhydrAMINE 50 MG/ML VIAL ONE (12:18)
[2022-07-02] MEDS ORDERED: fentaNYL citrate 0.05 MG/ML VIAL ONE (12:18)
[2022-07-02] MEDS ORDERED: SIMETHICONE 40 MG/0.6 ML ONE (12:22)
[2022-07-02] MEDS ORDERED: fentaNYL citrate 0.05 MG/ML VIAL IVP ONE (12:40)
[2022-07-02] MEDS ORDERED: MIDAZOLAM 2 MG/2 ML VIAL IVP ONE (12:40)
[2022-07-02] MEDS: VANCOMYCIN 1,000 MG in DEXTROSE 5% 250 ML IV SCH (15:19)
--- NOTE | 2022-07-02 16:29 | NUR ---
RECEIVED A CALL FROM LAB THAT PATIENT'S BLOOD CULTURES GRAM POSITIVE. DR. MCDONALD CALLED AND NOTIFIED. NO NEW ORDERS GIVEN. Susan BROWN RN.
--- NOTE | 2022-07-02 19:52 | NUR ---
GOT REPORT FROM AM NURSE BRANDY, PATIENT IS LYING ON THE BED, PATIENT IS NO VERBAL, PATIENT IS ON TRACH TO VENT, PATIENT HAS ROMERO CATHETER, PATIENT HAS LEFT UPPER ARM PICC LINE, ALL FALL PRECAUTION MEASURES ARE IN PLACE, CALL LIGHT IS WITHIN REACH, WILL CONTINUE TO MONITOR PATIENT.
[2022-07-02] MEDS ORDERED: DEXTROSE 50% 50 ML SYR IVP PRN (21:35)
[2022-07-02] MEDS ORDERED: INSULIN LISPRO SLIDING SCALE 100 UNITS/ML VIAL SUBQ PRN (21:35)
--- NOTE | 2022-07-02 22:03 | NUR ---
VITALS WITHIN NORMAL RANGE, PATIENT LYING ON THE BED, HOB ELEVATED, SCHEDULED MEDICATIONS GIVEN ORDERED, BLOOD GLUCOSE 102MG/DL, LANTUS INSULIN HOLD DUE TO LOW BLOOD SUGAR. NO RESPIRATORY DISTRESS NOTED, WILL CONTINUE TO MONITOR PATIENT.
[2022-07-03] VITALS (7 sets, daily range): BP systolic 131–161; BP diastolic 69–81
[2022-07-03] MEDS: NACL 0.9% 1,000 ML IV SCH ×2 (00:30→14:58)
[2022-07-03] MEDS: ALBUTEROL SULFATE/IPRATROPIU 3 ML SOL IH SCH ×4 (01:00→19:41)
[2022-07-03] MEDS: PIPERACILLIN/TAZOBACTAM 3.375 GM in DEXTROSE 5% 50 ML IV SCH ×3 (04:48→21:58)
--- NOTE | 2022-07-03 04:54 | NUR ---
LAB CALL AND REPORTED POSITIVE BLOOD CULTURE FOR GRAM NEGATIVE RODS, MORNING NURSE DAV GAVE REPORT THAT SHE ALREADY NOTIFY DOCTOR DR REID SAID NO NEW ORDER.
--- NOTE | 2022-07-03 06:17 | NUR ---
PATIENT'S BLOOD SUGAR IS 112MG/DL, NO COVERAGE NEEDED.
[2022-07-03] MEDS: BLOOD GLUCOSE MONITORING 1 DEV DEV FS SCH ×4 (06:41→20:30)
--- NOTE | 2022-07-03 07:16 | NUR ---
GAVE THE REPORT TO MORNING NURSE DAV FOR CONTINUOS OF CARE, PATIENT IS STABLE.
[2022-07-03 07:23] LABS: BASOPHILS # (AUTO) 0.1 K/uL (0.00-0.22); BASOPHILS % (AUTO) 0.6 % (0.0-2.0); EOSINOPHILS # (AUTO) 0.4 K/uL (0-0.4); EOSINOPHILS % (AUTO) 4.3 % (0.0-4.0); HEMOGLOBIN 8.1 g/dL (12.0-16.0); LYMPHOCYTES # (AUTO) 1.2 K/uL (2.5-16.5); LYMPHOCYTES % (AUTO) 15.2 % (20.5-51.1); MEAN CORPUSCULAR HEMOGLOBIN 28 pg (27-31); MEAN CORPUSCULAR HGB CONC 33 g/dL (33-37); MEAN CORPUSCULAR VOLUME 84.6 fL (80-94); MONOCYTES % (AUTO) 12.6 % (1.7-9.3); NEUTROPHILS # (AUTO) 5.5 K/uL (1.8-7.7); NEUTROPHILS % (AUTO) 67.3 % (42.2-75.2); PLATELET COUNT (AUTO) 336 K/uL (140-450); RED BLOOD CELL COUNT(AUTO) 2.96 MIL/uL (4.20-5.40); RED CELL DISTRIBUTION WIDTH 16.7 % (11.6-13.7); WHITE BLOOD COUNT (AUTO) 8.2 K/uL (4.8-10.8)
--- NOTE | 2022-07-03 07:45 | NUR ---
SATURATION 96% ON FIO2 OF 30% PEEP 5cmH2O POST HHN THERAPY TITRATED FIO2 TO 28% DAV/PLAN CONSULTANT NOTIFIED
--- NOTE | 2022-07-03 07:45 | NUR ---
RECEIVED ON A [employer] R860 VENTILATOR PLUGGED INTO RED OUTLET TOLERATING WELL WITHOUT ADVERSE REACTIONS NOTED TO A PORTEX DCT #8 AIRWAY SECURED WITH A ROSE TRACH TIE CUFF PRESSURE CHECKED NOTED AMBU BAG AT BEDSIDE STABLE EQUAL CHEST RISE DEEP TRACHEAL SUCTION FOR LARGE THIN WATERY YELLOW SECRETIONS AIRWAY PATENT
[2022-07-03 07:53] LABS: ALBUMIN 1.6 g/dL (3.4-5.0); ASPARTATE AMINOTRANSFERASE 26 U/L (15-37); CARBON DIOXIDE 20.1 mmol/L (21-32); CHLORIDE 110 mmol/L (98-107); CREATININE 1.1 mg/dL (0.6-1.3); GLUCOSE 122 mg/dL (74-106); MAGNESIUM 2.4 mg/dL (1.8-2.4); POTASSIUM 4.1 mmol/L (3.5-5.1); SODIUM SERUM 144 mmol/L (136-145); TOTAL BILIRUBIN 0.2 mg/dL (0.0-1.0); UREA NITROGEN, BLOOD 23 mg/dL (7-18)
[2022-07-03] MEDS ORDERED: MORPHINE SULFATE 2 MG/ML SYR IVP PRN (08:25)
--- NOTE | 2022-07-03 08:51 | NUR ---
PT. WITH LOW ABILIO SCALE AT MODERATE TO HIGH RISK, CONTINUE TO FOLLOW PRESSURE INJURY PREVENTION INTERVENTIONS. -POSITIONING: TURN AND REPOSITION PATIENT Q 2H OR SOONER USE PILLOWS TO KEEP BONY PROMINENCES FROM DIRECT CONTACT WITH SURFACES USE REPOSITIONING WEDGES TO PROVIDE 30-DEGREE ANGLE FOR SIDE LYING POSITIONS OFFLOADING OR FOAM DRESSING TO ALL TUBING TO PREVENT MEDICAL DEVICES RELATED PRESSURE INJURY -RE-EVALUATING AND MANAGING INCONTINENCE MONITOR SKIN CONDITION DURING POSITION CHANGE DO NOT MASSAGE REDNESS, BONY PROMINENCES FREQUENT JUSTIN-CARE AND PROVIDE BARRIER CREAMS PRN IF SOILING MOISTURE CONTROL BY OFFER BED SILVERIO/URINAL /ABSORBENT PAD TO WICK AND HOLD MOISTURE KEEP SKIN DRY AND PROTECT FROM FRICTION -MANAGE FRICTION/SHEAR/MOBILITY KEEP HOB AT THE LOWEST LEVEL OF ELEVATION NO MORE THAN 30 DEGREE UNLESS OTHERWISE CONTRAINDICATED USE LIFT SHEET OR TRANSFER DEVICE TO MOVE PATIENT AND PREVENT LATERAL SHEER. PROTECT HEELS, ELBOWS BONY PROMINENCES WITH SKIN BERRIES OR FOAM DRESSING IF EXPOSED TO FRICTION OFFLOAD BILATERAL HEELS BY PLACING PILLOWS UNDER CALVES AT ALL TIMES, UNLESS OTHERWISE CONTRAINDICATED -PRESSURE REDISTRIBUTION SURFACE THERAPY ASIF ISOFLEX MATTRESS -NUTRITION: PLEASE FOLLOW RD RECOMMENDATIONS AND OFFER NUTRITION SUPPLEMENTS IF ORDERED. PLEASE CONTACT WOUND CARE NURSE FOR ANY QUESTION AND CHANGE OF WOUND CONDITION. Addendum: 07/03/22 at 1002 by Alondra Ordaz RN (Grace) RIGHT LOWER CALF THIN SCAB, NO OPEN WOUND, NO S/S OF INFECTION. AREA COVER WITH A FOAM DRESSING.
[2022-07-03] MEDS: INSULIN LANTUS 100 UNITS/ML 10 ML VIAL SUBQ SCH ×2 (09:00→21:00)
[2022-07-03] MEDS: LEVOTHYROXINE 0.05 MG TAB GT SCH (09:14)
[2022-07-03] MEDS: ASCORBIC ACID 500 MG TAB GT SCH (09:14)
[2022-07-03] MEDS: PANTOPRAZOLE 40 MG INJ VIAL IVP SCH ×2 (09:14→21:54)
[2022-07-03] MEDS: levETIRAcetam 100 MG/ML ORASYR GT SCH ×2 (09:14→21:54)
[2022-07-03] MEDS: CHOLECALCIFEROL 1,000 IU TAB PO SCH (09:15)
[2022-07-03] MEDS: ZINC SULF 220 MG CAP PO SCH (09:15)
--- NOTE | 2022-07-03 10:18 | NUR ---
STABLE GOOD CHEST RISE DEEP TRACHEAL SUCTION FOR SMALL THIN YELLOW SECRETINS AIRWAY PATENT
--- NOTE | 2022-07-03 10:41 | NUR ---
PATIENT HAS BEEN SCREENED AND CATEGORIZED HIGH NUTRITION RISK. PATIENT WILL BE SEEN WITHIN 1-2 DAYS OF ADMISSION. 07/01/22-07/03/22 FNS REFERRAL RECEIVED FOR TUBE FEEDING. REVIEWED BY MENDEZ PATEL RD
--- NOTE | 2022-07-03 13:48 | NUR ---
RESTING COMFORTABLY GOOD CHEST RISE DEEP TRACHEAL SUCTION FOR SMALL THIN TO FROTHY SECRETIONS AIRWAY PATENT
--- NOTE | 2022-07-03 15:42 | NUR ---
DC PLANN[age] YRS OLD FEMALE PATIENT WAS ADMITTED FROM [facility] WITH A DX OF VENTILATOR ASSOCIATED PNEUMONIA. PATIENT HAS A HX OF S/P TRACH PLACEMENT ,HTN, DM, CVA, G-TUBE BEDBOUND, HYPOTHYROID ,COPD AND SEIZURE. CXR SHOWED BILATERAL INCREASED INTERSTITIAL OPACITIES SUSPICIOUS FOR PNEUMONIA. RAPID COVID TEST NEGATIVE. ADMINISTERED IVF, IV ABX VANCOMYCIN , AND CONTINUED HOME MEDS. CONSULTED WITH PULMO, ID AND GI. DC PLAN TO RETURN TO [facility] WHEN STABLE. CM TO FOLLOW Addendum: 07/06/22 at 1635 by Preethi Raya RN DC PLANNING: PATIENT IS RETURNING TO [facility] CAN GO TO ROOM 1B # TO GIVE REPORT [phone]. ARRANGED TRANSPORT WITH [facility] TIME WITH IN 5:30PM NOTIFIED LILIYA CHARGE NURSE.
[2022-07-03] MEDS: VANCOMYCIN 1,000 MG in DEXTROSE 5% 250 ML IV SCH (15:44)
--- NOTE | 2022-07-03 16:11 | NUR ---
STABLE NO DISTRESS NOTED GOOD CHEST RISE AIRWAY PATENT
--- NOTE | 2022-07-03 16:18 | NUR ---
07/03/22 RD INITIAL ASSESSMENT COMPLETED PLEASE REFER TO NUTRITION ASSESSMENT UNDER CARE ACTIVITY FOR ESTIMATED NUTRITIONAL NEEDS. 1. WHEN/IF MEDICALLY APPROPRIATE, RECOMMEND GLUCERNA 1.2 @ 60 ML/HR - FWF: 150 ML Q6H -START AT 20 ML/HR AND INCREASE BY 20 ML Q4H TOLERATED UNTIL GOAL RATE IS REACHED. -PATIENT WILL RECEIVE 1728 KCAL, 86 GRAMS PROTEIN, AND 1759 ML VOLUME. THIS MEETS 100% OF PATIENTS ESTIMATED KCAL NEEDS AND 100% OF PATIENTS PROTEIN NEEDS. 2. RD TO FOLLOW-UP 3-5 DAYS, MODERATE RISK REVIEWED BY MENDEZ PATEL RD
--- NOTE | 2022-07-03 19:59 | NUR ---
PER AM SHIFT NURSE - SHE REFERRED PT. TO DR. AMAYA - FOR G TUBE FEEDING BUT STILL NO RESPONSE FROM DR. AMAYA , PT IS W/ ON GOING NSS LATEST BS 140 - WILL FF UP ABOUT THIS MATTER .
--- NOTE | 2022-07-03 20:28 | NUR ---
BS RE CHECK 84 - WILL REFER TO DR. MCDONALD - CHARGE NURSE JUNIOR AWARE ABOUT IT - FOR CLOSELY WATCH - THERE IS D50/50 STAND BY AT THE [facility] PRN - WILL WAIT DR. MCDONALD FURTHER ORDERS . Addendum: 07/04/22 at 0449 by Liz Molina RN PER DR. MCDONALD - SHIFT IVF TO D5 .
[2022-07-03] MEDS: DEXT 5% / NACL 0.45% 1,000 ML IV SCH (21:21)
--- NOTE | 2022-07-03 22:30 | NUR ---
BS CHECK 96 - WILL CONT. TO MONITOR .
[2022-07-04] VITALS: BP 141/76
--- NOTE | 2022-07-04 | NUR ---
ROUNDS, NO S/SX OF ACUTE DISTRESS NOTED ,. WILL CONT. TO MONITOR .
--- NOTE | 2022-07-04 02:00 | NUR ---
ON TELE MONITOR , NOS/SX OF ACUTE DISTRESS NOTED AT THIS TIME .
[2022-07-04 04:00] VITALS: BP 142/77
--- NOTE | 2022-07-04 04:00 | NUR ---
ROUNDS , NO S/SX OF ACUTE DISTRESS NOTED . O2 SAT WNL .
[2022-07-04] MEDS: PIPERACILLIN/TAZOBACTAM 3.375 GM in DEXTROSE 5% 50 ML IV SCH ×2 (05:39→13:00)
--- NOTE | 2022-07-04 06:00 | NUR ---
ROUNDS , NO S/SX OF ACUTE DISTRESS NOTED , WILL CONT. TO MONITOR .
[2022-07-04] MEDS: BLOOD GLUCOSE MONITORING 1 DEV DEV FS SCH ×4 (06:15→21:03)
[2022-07-04 07:20] LABS: BASOPHILS % (AUTO) 0.3 % (0.0-2.0); EOSINOPHILS # (AUTO) 0.3 K/uL (0-0.4); EOSINOPHILS % (AUTO) 4.3 % (0.0-4.0); HEMATOCRIT 23.6 % (36-48); HEMOGLOBIN 7.6 g/dL (12.0-16.0); LYMPHOCYTES # (AUTO) 1.1 K/uL (2.5-16.5); LYMPHOCYTES % (AUTO) 14.5 % (20.5-51.1); MEAN CORPUSCULAR HEMOGLOBIN 27 pg (27-31); MEAN CORPUSCULAR HGB CONC 32 g/dL (33-37); MEAN CORPUSCULAR VOLUME 84.9 fL (80-94); MONOCYTES # (AUTO) 0.9 K/uL (0.8-1.0); MONOCYTES % (AUTO) 11.7 % (1.7-9.3); NEUTROPHILS # (AUTO) 5.4 K/uL (1.8-7.7); NEUTROPHILS % (AUTO) 69.2 % (42.2-75.2); PLATELET COUNT (AUTO) 331 K/uL (140-450); RED BLOOD CELL COUNT(AUTO) 2.77 MIL/uL (4.20-5.40); RED CELL DISTRIBUTION WIDTH 17.1 % (11.6-13.7); WHITE BLOOD COUNT (AUTO) 7.9 K/uL (4.8-10.8)
[2022-07-04 07:47] LABS: ALBUMIN 1.4 g/dL (3.4-5.0); ANION GAP 18.7 (8-16); ASPARTATE AMINOTRANSFERASE 19 U/L (15-37); CARBON DIOXIDE 17.6 mmol/L (21-32); CHLORIDE 106 mmol/L (98-107); GLUCOSE 325 mg/dL (74-106); MAGNESIUM 1.9 mg/dL (1.8-2.4); POTASSIUM 3.3 mmol/L (3.5-5.1); SODIUM SERUM 139 mmol/L (136-145); TOTAL BILIRUBIN 0.2 mg/dL (0.0-1.0); UREA NITROGEN, BLOOD 11 mg/dL (7-18)
--- NOTE | 2022-07-04 07:49 | NUR ---
ENDORSED - AWAKE , O2 SAT 97 %
[2022-07-04 08:00] VITALS: BP 154/80
[2022-07-04] MEDS: DEXT 5% / NACL 0.45% 1,000 ML IV SCH ×2 (09:10→21:40)
[2022-07-04] MEDS: levETIRAcetam 100 MG/ML ORASYR GT SCH ×2 (09:19→20:33)
[2022-07-04] MEDS: ZINC SULF 220 MG CAP PO SCH (09:19)
[2022-07-04] MEDS: CHOLECALCIFEROL 1,000 IU TAB PO SCH (09:19)
[2022-07-04] MEDS: LEVOTHYROXINE 0.05 MG TAB GT SCH (09:19)
[2022-07-04] MEDS: ASCORBIC ACID 500 MG TAB GT SCH (09:20)
[2022-07-04] MEDS: PANTOPRAZOLE 40 MG INJ VIAL IVP SCH ×2 (09:20→20:33)
[2022-07-04] MEDS: INSULIN LANTUS 100 UNITS/ML 10 ML VIAL SUBQ SCH ×2 (09:32→21:05)
[2022-07-04 12:00] VITALS: BP 141/80
[2022-07-04] MEDS: POTASSIUM CHLORIDE 20% 40 MEQ/15 ML UDC GT PRN (13:55)
--- NOTE | 2022-07-04 13:58 | NUR ---
DC PLANNING SW OUTREACH TO [facility] TO GATHER COLLATERAL INFORMATION, SPOKE WITH [facility] ADMIN,JENAE. ADMIN IDENTIFIED EMERGENCY CONTACT PT'S NICK LAZO [phone] AND DASIA TALITA, . PT IS IN [facility] CARE WITH [facility], PT RECENT ADMISSION TO [facility], ADMISSION DATE 06/19/22.ADMIN REPORTS PATIENT IS BED BOUND/ TOTAL CARE AND IS NON VERBAL. PATIENT TRAYC TO VENT. ADMIN REPORTS PT UNABLE TO RESPOND TO VERBAL COMMANDS.PER [facility] ADMIN, PATIENT FAMILY HAS NOT BEEN IN TO VISIT WITH PT.DC PLAN IS FOR PT TO RETURN TO FACILITY ONCE CLINICALLY STABLE.
[2022-07-04] MEDS: ALBUTEROL SULFATE/IPRATROPIU 3 ML SOL IH SCH ×2 (15:14→19:02)
[2022-07-04 16:00] VITALS: BP 157/83
[2022-07-04] MEDS ORDERED: PIPERACILLIN/TAZOBACTAM 4.5 GM in DEXTROSE 5% 50 ML IV SCH (18:00)
[2022-07-04] MEDS: PIPERACILLIN/TAZOBACTAM 4.5 GM in DEXTROSE 5% 100 ML IV SCH ×2 (18:13→23:13)
--- NOTE | 2022-07-04 18:24 | NUR ---
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 MD aware. Vanco through 25.5 Pharmacy aware, hold vanco per protocol.
--- NOTE | 2022-07-04 19:00 | NUR ---
RECD BEDSIDE REPORT FROM AM SHIFT NURSE FOR CONTINUITY OF CARE. AMADOU Calvert RN
[2022-07-04 20:00] VITALS: BP 170/80
[2022-07-04] MEDS: ACETAMINOPHEN 325 MG TAB PO PRN (21:17)
[2022-07-05] VITALS (7 sets, daily range): BP systolic 99–150; BP diastolic 52–72
[2022-07-05] MEDS: ALBUTEROL SULFATE/IPRATROPIU 3 ML SOL IH SCH ×3 (01:00→19:00)
[2022-07-05] MEDS: ACETAMINOPHEN 325 MG TAB PO PRN (03:22)
--- NOTE | 2022-07-05 04:36 | NUR ---
PATIENT HAS INCREASED FEVER FROM 100.9 AT 0315 TO 101.9 AT 0415. PATIENT WAS GIVEN TYLENOL PRESCRIBED BY PCP FOR FEVER. LEGAL SUPPORT ANALYST PCP NOTIFIED FOR FURTHER INSTRUCTIONS. PENDING PCP NOTIFICATION. AMADOU Calvert RN
[2022-07-05] MEDS: PIPERACILLIN/TAZOBACTAM 4.5 GM in DEXTROSE 5% 100 ML IV SCH ×3 (05:04→18:00)
--- NOTE | 2022-07-05 05:20 | NUR ---
REC'D CALL FROM ENTRY LEVEL RECRUITER PCP, LABS ORDERED FOR FURTHER REVIEW. AMADOU Calvert RN
[2022-07-05] MEDS: BLOOD GLUCOSE MONITORING 1 DEV DEV FS SCH ×5 (06:39→22:13)
--- NOTE | 2022-07-05 07:12 | NUR ---
BEDSIDE REPORT GIVEN TO AM SHIFT NURSE FOR CONTINUITY OF CARE.
[2022-07-05 07:31] LABS: HEMATOCRIT 26.1 % (36-48); HEMOGLOBIN 8.3 g/dL (12.0-16.0); MEAN CORPUSCULAR HEMOGLOBIN 27 pg (27-31); MEAN CORPUSCULAR HGB CONC 32 g/dL (33-37); MEAN CORPUSCULAR VOLUME 85.3 fL (80-94); PLATELET COUNT (AUTO) 313 K/uL (140-450); RED BLOOD CELL COUNT(AUTO) 3.05 MIL/uL (4.20-5.40); RED CELL DISTRIBUTION WIDTH 17.3 % (11.6-13.7); WHITE BLOOD COUNT (AUTO) 10.4 K/uL (4.8-10.8)
[2022-07-05 07:46] LABS: ALBUMIN 1.4 g/dL (3.4-5.0); ANION GAP 20.7 (8-16); ASPARTATE AMINOTRANSFERASE 19 U/L (15-37); CARBON DIOXIDE 14.5 mmol/L (21-32); CHLORIDE 102 mmol/L (98-107); CREATININE 1.2 mg/dL (0.6-1.3); GLUCOSE 138 mg/dL (74-106); MAGNESIUM 1.5 mg/dL (1.8-2.4); POTASSIUM 3.2 mmol/L (3.5-5.1); SODIUM SERUM 134 mmol/L (136-145); TOTAL BILIRUBIN 0.3 mg/dL (0.0-1.0); UREA NITROGEN, BLOOD 8 mg/dL (7-18)
[2022-07-05 08:36] LABS: LYMPHOCYTES % (MANUAL) 3 % (20-46); METAMYELOCYTES % 3 % (0-0); MONOCYTES % (MANUAL) 7 % (5-12); MYELOCYTES % 2 % (0-0)
[2022-07-05] MEDS: levETIRAcetam 100 MG/ML ORASYR GT SCH ×2 (08:56→20:19)
[2022-07-05] MEDS: PANTOPRAZOLE 40 MG INJ VIAL IVP SCH ×2 (08:57→20:20)
[2022-07-05] MEDS: ZINC SULF 220 MG CAP PO SCH (08:57)
[2022-07-05] MEDS: LEVOTHYROXINE 0.05 MG TAB GT SCH (08:57)
[2022-07-05] MEDS: CHOLECALCIFEROL 1,000 IU TAB PO SCH (08:57)
[2022-07-05] MEDS: ASCORBIC ACID 500 MG TAB GT SCH (08:57)
[2022-07-05] MEDS: POTASSIUM CHLORIDE 20% 40 MEQ/15 ML UDC GT PRN (08:58)
[2022-07-05] MEDS ORDERED: VANCOMYCIN 750 MG in DEXTROSE 5% 250 ML IV SCH (09:00)
[2022-07-05] MEDS: INSULIN LANTUS 100 UNITS/ML 10 ML VIAL SUBQ SCH ×2 (09:07→20:25)
[2022-07-05] MEDS: DEXT 5% / NACL 0.45% 1,000 ML IV SCH ×2 (17:00→22:13)
--- NOTE | 2022-07-05 19:10 | NUR ---
RECEIVED PATIENT FROM DAY RN FOR CONTINUITY OF CARE. PT BEDBOUND, NON VERBAL. ON TRACH TO VENT 30% FIO2. O2 SAT AT 98%. NORBERTO PICC LINE NOT WORKING.FOELY IN PLACE, DRAINING CLEAR YELLOW URINE. 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 L UA PICC IN USE, RUNNING D51/2NS @ 80CC. ZOSYN FOR 1800 WAS GIVEN BUT NOT ADMINISTERED ON [employer]. WOUND ON BACK OF R LEG. ALL PRECAUTIONS IN PLACE.WILL CONTINUE TO MONITOR.
--- NOTE | 2022-07-05 20:38 | NUR ---
SCHEDULED MEDICATIONS GIVEN. BLOOD SUGAR WAS 59. D5050 IVP GIVEN. LANTUS INSULIN HELD DUE TO LOW BLOOD SUGAR. PT TOLERATED WELL. WILL CONTINUE TO MONITOR.
--- NOTE | 2022-07-05 22:13 | NUR ---
BLOOD SUGAR RECHECK WAS 98.WILL CONTINUE TO MONITOR.
[2022-07-06] VITALS: BP 136/77
[2022-07-06] MEDS: PIPERACILLIN/TAZOBACTAM 4.5 GM in DEXTROSE 5% 100 ML IV SCH ×3 (00:08→12:21)
[2022-07-06] MEDS: ALBUTEROL SULFATE/IPRATROPIU 3 ML SOL IH SCH ×3 (01:52→13:45)
--- NOTE | 2022-07-06 03:08 | NUR ---
PT RESTING ON BED. O2 SAT AT 97% ON TRACH TO VENT WITH FIO2 AT 26%. NO S/SX OF DISTRESS. ALL PRECAUTIONS IN PLACE. .WILL CONTINUE TO MONITOR.
[2022-07-06 04:00] VITALS: BP 142/69
--- NOTE | 2022-07-06 06:37 | NUR ---
PT RESTING ON BED. NO S/SX OF DISTRESS AT THIS MOMENT.COLLECTED BLOOD SAMPLE FROM [facility]. PT TOLERATED WELL.ALL PRECAUTIONS IN PLACE .CALL LIGHT WITHIN REACH. WILL CONTINUE TO MONITOR.
[2022-07-06] MEDS: BLOOD GLUCOSE MONITORING 1 DEV DEV FS SCH ×3 (06:39→16:39)
[2022-07-06 07:11] LABS: BASOPHILS % (AUTO) 0.2 % (0.0-2.0); EOSINOPHILS # (AUTO) 0.3 K/uL (0-0.4); EOSINOPHILS % (AUTO) 3.3 % (0.0-4.0); HEMATOCRIT 24.8 % (36-48); LYMPHOCYTES # (AUTO) 0.8 K/uL (2.5-16.5); LYMPHOCYTES % (AUTO) 9.5 % (20.5-51.1); MEAN CORPUSCULAR HEMOGLOBIN 27 pg (27-31); MEAN CORPUSCULAR HGB CONC 32 g/dL (33-37); MEAN CORPUSCULAR VOLUME 85.2 fL (80-94); MONOCYTES # (AUTO) 0.8 K/uL (0.8-1.0); MONOCYTES % (AUTO) 9.1 % (1.7-9.3); NEUTROPHILS # (AUTO) 6.8 K/uL (1.8-7.7); NEUTROPHILS % (AUTO) 77.9 % (42.2-75.2); PLATELET COUNT (AUTO) 320 K/uL (140-450); RED BLOOD CELL COUNT(AUTO) 2.91 MIL/uL (4.20-5.40); RED CELL DISTRIBUTION WIDTH 17.5 % (11.6-13.7); WHITE BLOOD COUNT (AUTO) 8.7 K/uL (4.8-10.8)
[2022-07-06 07:23] LABS: ALBUMIN 1.4 g/dL (3.4-5.0); ANION GAP 18.5 (8-16); ASPARTATE AMINOTRANSFERASE 27 U/L (15-37); CARBON DIOXIDE 14.6 mmol/L (21-32); CHLORIDE 106 mmol/L (98-107); CREATININE 1.2 mg/dL (0.6-1.3); GLUCOSE 106 mg/dL (74-106); MAGNESIUM 1.9 mg/dL (1.8-2.4); POTASSIUM 3.1 mmol/L (3.5-5.1); SODIUM SERUM 136 mmol/L (136-145); TOTAL BILIRUBIN 0.2 mg/dL (0.0-1.0); UREA NITROGEN, BLOOD 7 mg/dL (7-18)
--- NOTE | 2022-07-06 07:27 | NUR ---
ENDORSED PATIENT TO DAY RN FOR CONTINUITY OF CARE. PT IS STABLE.
--- NOTE | 2022-07-06 07:45 | NUR ---
RECEIVED ON A [employer] R860 VENTILATOR PLUGGED INTO RED OUTLET TOLERATING WELL WITHOUT ADVERSE REACTIONS NOTED TO A PORTEX DCT #8 AIRWAY SECURED WITH A ROSE TRACH TIE CUFF PRESSURE CHECKED NOTED AMBU BAG AT BEDSIDE STABLE GOOD CHEST RISE DEEP TRACHEAL SUCTION FOR MODERATE SEMI THICK PALE YELLOW SECRETIONS AIRWAY PATENT
--- NOTE | 2022-07-06 07:50 | NUR ---
received pt. in bed, non verbal, trach to vent, not in any form of distress. noted K level 3.1 and CA level 5.7. MD aware with order. will continue plan of care.
[2022-07-06 08:00] VITALS: BP 140/65
[2022-07-06] MEDS ORDERED: CALCIUM GLUC 1 GM/50 mL NS BAG 50 ML IV SCH (08:30)
[2022-07-06] MEDS: PANTOPRAZOLE 40 MG INJ VIAL IVP SCH (08:56)
[2022-07-06] MEDS: LEVOTHYROXINE 0.05 MG TAB GT SCH (08:56)
[2022-07-06] MEDS: levETIRAcetam 100 MG/ML ORASYR GT SCH (08:56)
[2022-07-06] MEDS: ASCORBIC ACID 500 MG TAB GT SCH (08:56)
[2022-07-06] MEDS: ZINC SULF 220 MG CAP PO SCH (08:57)
[2022-07-06] MEDS: CHOLECALCIFEROL 1,000 IU TAB PO SCH (08:57)
[2022-07-06] MEDS: POTASSIUM CHLORIDE 20% 40 MEQ/15 ML UDC GT PRN (08:57)
[2022-07-06] MEDS: INSULIN LANTUS 100 UNITS/ML 10 ML VIAL SUBQ SCH (08:58)
[2022-07-06] MEDS: DEXT 5% / NACL 0.45% 1,000 ML IV SCH (11:20)
[2022-07-06 12:00] VITALS: BP 139/67
[2022-07-06 16:00] VITALS: BP 127/72
[2022-07-06] MEDS ORDERED: PIPE100S2 IV (16:00)
[2022-07-06 17:07] VITALS: BP 124/72
--- NOTE | 2022-07-06 17:47 | NUR ---
pt.discharged to SNF. transported via [facility]. [place] Mar[place] A[place] [facility]. [place] upon [place].
== END 2022-07-06 17:50 | DRG 720 ==
LOC: MED 11:55 → MIC 15:10 → MTU 23:10
PROVIDERS: ADMIT Internal Medicine; ATTEND Internal Medicine
PROC: 5A1955Z Respiratory Ventilation, Greater than 96 Consecutive Hours (ICD-10-PCS; principal; 2022-07-01)
PROC: 05HY33Z Insertion of Infusion Device into Upper Vein, Percutaneous Approach (ICD-10-PCS; 2022-07-01)
PROC: B54NZZA Ultrasonography of Left Upper Extremity Veins, Guidance (ICD-10-PCS; 2022-07-01)
PROC: 30233N1 Transfusion of Nonautologous Red Blood Cells into Peripheral Vein, Percutaneous Approach (ICD-10-PCS; 2022-07-02)
PROC: 0DJ08ZZ Inspection of Upper Intestinal Tract, Via Natural or Artificial Opening Endoscopic (ICD-10-PCS; 2022-07-03)
DX: A41.9 Sepsis, unspecified organism (principal); J96.21 Acute and chronic respiratory failure with hypoxia; J95.851 Ventilator associated pneumonia; J44.0 Chronic obstructive pulmonary disease with (acute) lower respiratory infection; R53.2 Functional quadriplegia; E44.1 Mild protein-calorie malnutrition; I13.0 Hypertensive heart and chronic kidney disease with heart failure and stage 1 through stage 4 chronic kidney disease, or unspecified chronic kidney disease; K92.0 Hematemesis; I50.32 Chronic diastolic (congestive) heart failure; E11.22 Type 2 diabetes mellitus with diabetic chronic kidney disease; D62 Acute posthemorrhagic anemia; F03.90 Unspecified dementia, unspecified severity, without behavioral disturbance, psychotic disturbance, mood disturbance, and anxiety; N39.0 Urinary tract infection, site not specified; Z20.822 Contact with and (suspected) exposure to COVID-19; K21.9 Gastro-esophageal reflux disease without esophagitis; G40.909 Epilepsy, unspecified, not intractable, without status epilepticus; E03.9 Hypothyroidism, unspecified; N18.9 Chronic kidney disease, unspecified; I69.354 Hemiplegia and hemiparesis following cerebral infarction affecting left non-dominant side; Z88.8 Allergy status to other drugs, medicaments and biological substances; Z93.1 Gastrostomy status; Z79.4 Long term (current) use of insulin; Z68.26 Body mass index [BMI] 26.0-26.9, adult
CPT/HCPCS: 36415; 36430; 36600; 70450; 71045; 80053; 80202; 81001; 82803; 82948; 83605; 83690; 83735; 84484; 85025; 85610; 85730; 86886; 86900; 86901; 86920; 87040; 87070; 87081; 87086; 87205; 89220; 93005; 94003; 94640; 96365; 96367; 96375; 99291; C1758; C9113; J0610; J1200; J1815; J2250; J2543; J3010; J3370; J3475; J3490; J7060; P9016; Q0092

== ENCOUNTER 2023-05-07 20:14 | Inpatient (IN) | payer OTHER, MEDICARE ==
[~2023-05-07] VITALS: Ht 165.1 cm; Wt 96.6 kg
[~2023-05-07 20:14] MED LIST changes: -APIX2.5 GT; +PIPE100S2 IV; -Vancomycin Per Pharmacy MC
[2023-05-07 20:19] VITALS: BP 145/74; PULSE 103; RESP 32; TEMP 97.4; O2SAT 94
[2023-05-07] MEDS ORDERED: PIPERACILLIN/TAZOBACTAM 3.375 GM in DEXTROSE 5% 50 ML IV ONE (20:25)
[2023-05-07] MEDS ORDERED: VANCOMYCIN 1,000 MG in DEXTROSE 5% 250 ML IV ONE (20:25)
[2023-05-07] MEDS ORDERED: NACL 0.9% 1,000 ML IV ONE (20:50)
[2023-05-07 20:55] VITALS: PULSE 104; O2SAT 90
[2023-05-07 21:01] LABS: BLOOD GAS BASE EXCESS -1.9 mmol/L (-2.0-2.0); BLOOD GAS HCO3 25.2 mmol/L (22-26); BLOOD GAS PCO2 55.9 mmHg (35-45); BLOOD GAS PH 7.272 (7.35-7.45)
[2023-05-07] MEDS ORDERED: PIPERACILLIN/TAZOBACTAM 3.375 GM VIAL IV ONE (21:10)
[2023-05-07 21:19] VITALS: PULSE 104; RESP 26; O2SAT 90
[2023-05-07 21:23] LABS: FLU A ANTIGEN negative (NEGATIVE); FLU B ANTIGEN NEGATIVE (NEGATIVE)
[2023-05-07 21:27] LABS: BASOPHILS # (AUTO) 0.1 K/uL (0.00-0.22); BASOPHILS % (AUTO) 0.4 % (0.0-2.0); EOSINOPHILS # (AUTO) 0.5 K/uL (0-0.4); EOSINOPHILS % (AUTO) 3.2 % (0.0-4.0); HEMATOCRIT 23.9 % (36-48); HEMOGLOBIN 7.3 g/dL (12.0-16.0); LYMPHOCYTES # (AUTO) 1.2 K/uL (2.5-16.5); LYMPHOCYTES % (AUTO) 7.4 % (20.5-51.1); MEAN CORPUSCULAR HEMOGLOBIN 28 pg (27-31); MEAN CORPUSCULAR HGB CONC 31 g/dL (33-37); MEAN CORPUSCULAR VOLUME 92.2 fL (80-94); MONOCYTES # (AUTO) 1.1 K/uL (0.8-1.0); MONOCYTES % (AUTO) 6.8 % (1.7-9.3); NEUTROPHILS # (AUTO) 13.7 K/uL (1.8-7.7); NEUTROPHILS % (AUTO) 82.2 % (42.2-75.2); PLATELET COUNT (AUTO) 400 K/uL (140-450); RED CELL DISTRIBUTION WIDTH 17.4 % (11.6-13.7); WHITE BLOOD COUNT (AUTO) 16.6 K/uL (4.8-10.8)
[2023-05-07 21:40] LABS: INR 0.95 (0.8-1.2); PARTIAL THROMBOPLASTIN TIME 26.3 secs (22-35.6)
[2023-05-07] MEDS ORDERED: VANCOMYCIN 1,000 MG VIAL ONE (21:42)
[2023-05-07 21:45] LABS: ALANINE AMINOTRANSFERASE 22 U/L (12-78); ALBUMIN 1.7 g/dL (3.4-5.0); ALKALINE PHOSPHATASE 105 U/L (50-136); ANION GAP 12.4 (8-16); ASPARTATE AMINOTRANSFERASE 20 U/L (15-37); CALCIUM 7.5 mg/dL (8.5-10.1); CARBON DIOXIDE 25.2 mmol/L (21-32); CHLORIDE 103 mmol/L (98-107); CREATINE KINASE, TOTAL 75 U/L (26-192); CREATININE 3.8 mg/dL (0.6-1.3); GLUCOSE 278 mg/dL (74-106); LACTIC ACID 1.7 mmol/L (0.4-2.0); LIPASE 125 U/L (73-393); POTASSIUM 4.6 mmol/L (3.5-5.1); SODIUM SERUM 136 mmol/L (136-145); TOTAL BILIRUBIN 0.2 mg/dL (0.0-1.0); TOTAL PROTEIN, SERUM 8.3 g/dL (6.4-8.2)
[2023-05-07 21:49] LABS: UREA NITROGEN, BLOOD 84 mg/dL (7-18)
[2023-05-07] MEDS ORDERED: HYDROcodone/APAP 5/325 MG 1 TAB TAB PO PRN (22:05)
[2023-05-07] MEDS ORDERED: MAGNESIUM OXIDE 400 MG TAB PO PRN (22:05)
[2023-05-07] MEDS ORDERED: ACETAMINOPHEN 325 MG TAB PO PRN (22:05)
[2023-05-07] MEDS ORDERED: MAG SULF 2000 MG/WATER PREMIX 50 ML IV PRN (22:05)
[2023-05-07] MEDS ORDERED: VANCOMYCIN PER PHARMACY MC PRN (22:05)
[2023-05-07 22:14] LABS: APPEARANCE,URINE CLEAR (CLEAR); BILIRUBIN,URINE NEGATIVE (NEGATIVE); BLOOD, URINE TRACE-I (NEGATIVE); COLOR,URINE YELLOW (YELLOW); LEUKOCYTE ESTERASE ,URINE NEGATIVE (NEGATIVE); NITRITE, URINE NEGATIVE (NEGATIVE); PROTEIN,URINE 3+ (NEGATIVE); UGLUCOSE 2+ (NEGATIVE); UROBILINOGEN,URINE 0.2 EU/dL (0.2 - 1)
[2023-05-07] MEDS ORDERED: DEXTROSE 50% 50 ML SYR IVP PRN (22:15)
[2023-05-07 22:25] LABS: BACTERIA,URINE None Seen /HPF (None Seen); RBC,URINE 0-5 /HPF (0-5); SQUAMOUS EPITHELIAL CELL,UR None Seen /LPF (0-3 (FEW)); WBC,URINE NONE SEEN /HPF (0-5)
[2023-05-07 23:08] VITALS: PULSE 106; O2SAT 100
[2023-05-07 23:10] VITALS: BP 131/58; PULSE 88; RESP 18; TEMP 97.7; O2SAT 99
[2023-05-07] MEDS: NACL 0.9% 1,000 ML IV SCH (23:38)
[2023-05-08] VITALS (14 sets, daily range): BP systolic 66–148; BP diastolic 58–66; PULSE 75–97; RESP 18–22; TEMP 98–98.4; O2SAT 93–100
[2023-05-08] MEDS: MORPHINE SULFATE 2 MG/ML SYR IVP PRN (02:23)
[2023-05-08] MEDS ORDERED: PIPERACILLIN/TAZOBACTAM 2.25 GM VIAL IV ONE (04:01)
[2023-05-08] MEDS: PIPERACILLIN/TAZOBACTAM 2.25 GM in DEXTROSE 5% 50 ML IV SCH ×3 (04:08→20:09)
[2023-05-08 05:49] LABS: ALANINE AMINOTRANSFERASE 18 U/L (12-78); ALBUMIN 1.5 g/dL (3.4-5.0); ALKALINE PHOSPHATASE 87 U/L (50-136); ANION GAP 12.3 (8-16); ASPARTATE AMINOTRANSFERASE 19 U/L (15-37); CARBON DIOXIDE 25.1 mmol/L (21-32); CHLORIDE 106 mmol/L (98-107); CREATININE 3.6 mg/dL (0.6-1.3); GLUCOSE 150 mg/dL (74-106); POTASSIUM 4.4 mmol/L (3.5-5.1); SODIUM SERUM 139 mmol/L (136-145); TOTAL BILIRUBIN 0.2 mg/dL (0.0-1.0); TOTAL PROTEIN, SERUM 7.2 g/dL (6.4-8.2)
[2023-05-08 05:52] LABS: MAGNESIUM 4.8 mg/dL (1.8-2.4); UREA NITROGEN, BLOOD 83 mg/dL (7-18)
[2023-05-08] MEDS: BLOOD GLUCOSE MONITORING 1 DEV DEV FS SCH ×4 (06:16→20:08)
[2023-05-08] MEDS ORDERED: FUROSEMIDE 40 MG/4 ML VIAL IVP SCH (06:37)
[2023-05-08] MEDS ORDERED: VANCOMYCIN 500 MG in DEXTROSE 5% 100 ML IV SCH (08:00)
[2023-05-08 08:02] LABS: BASOPHILS # (AUTO) 0.1 K/uL (0.00-0.22); BASOPHILS % (AUTO) 0.6 % (0.0-2.0); EOSINOPHILS # (AUTO) 0.5 K/uL (0-0.4); EOSINOPHILS % (AUTO) 3.3 % (0.0-4.0); HEMATOCRIT 20.3 % (36-48); LYMPHOCYTES # (AUTO) 1.3 K/uL (2.5-16.5); LYMPHOCYTES % (AUTO) 9.1 % (20.5-51.1); MEAN CORPUSCULAR HEMOGLOBIN 28 pg (27-31); MEAN CORPUSCULAR HGB CONC 31 g/dL (33-37); MEAN CORPUSCULAR VOLUME 92.8 fL (80-94); MONOCYTES # (AUTO) 1.1 K/uL (0.8-1.0); MONOCYTES % (AUTO) 7.8 % (1.7-9.3); NEUTROPHILS # (AUTO) 11.4 K/uL (1.8-7.7); NEUTROPHILS % (AUTO) 79.2 % (42.2-75.2); PLATELET COUNT (AUTO) 346 K/uL (140-450); RED BLOOD CELL COUNT(AUTO) 2.19 MIL/uL (4.20-5.40); RED CELL DISTRIBUTION WIDTH 17.2 % (11.6-13.7); WHITE BLOOD COUNT (AUTO) 14.4 K/uL (4.8-10.8)
[2023-05-08 08:06] LABS: HEMOGLOBIN 6.2 g/dL (12.0-16.0)
[2023-05-08] MEDS: PANTOPRAZOLE 40 MG INJ VIAL IVP SCH (09:49)
[2023-05-08] MEDS: NACL 0.9% 1,000 ML IV SCH (11:46)
[2023-05-08 20:39] LABS: HEMATOCRIT 23.3 % (36-48); HEMOGLOBIN 7.3 g/dL (12.0-16.0)
[2023-05-09] VITALS (21 sets, daily range): BP systolic 93–170; BP diastolic 56–82; PULSE 82–98; RESP 18–20; TEMP 97–98.4; O2SAT 92–98
[2023-05-09] MEDS: NACL 0.9% 1,000 ML IV SCH ×3 (02:46→21:34)
[2023-05-09] MEDS: MORPHINE SULFATE 2 MG/ML SYR IVP PRN (03:22)
[2023-05-09] MEDS: PIPERACILLIN/TAZOBACTAM 2.25 GM in DEXTROSE 5% 50 ML IV SCH ×3 (04:33→20:28)
[2023-05-09 05:26] LABS: BASOPHILS # (AUTO) 0.1 K/uL (0.00-0.22); BASOPHILS % (AUTO) 0.7 % (0.0-2.0); EOSINOPHILS # (AUTO) 0.6 K/uL (0-0.4); EOSINOPHILS % (AUTO) 4.3 % (0.0-4.0); HEMATOCRIT 23.8 % (36-48); HEMOGLOBIN 7.4 g/dL (12.0-16.0); LYMPHOCYTES # (AUTO) 1.1 K/uL (2.5-16.5); LYMPHOCYTES % (AUTO) 8.3 % (20.5-51.1); MEAN CORPUSCULAR HEMOGLOBIN 28 pg (27-31); MEAN CORPUSCULAR HGB CONC 31 g/dL (33-37); MEAN CORPUSCULAR VOLUME 89.3 fL (80-94); MONOCYTES % (AUTO) 7.5 % (1.7-9.3); NEUTROPHILS # (AUTO) 10.2 K/uL (1.8-7.7); NEUTROPHILS % (AUTO) 79.2 % (42.2-75.2); PLATELET COUNT (AUTO) 345 K/uL (140-450); RED BLOOD CELL COUNT(AUTO) 2.67 MIL/uL (4.20-5.40); RED CELL DISTRIBUTION WIDTH 18.4 % (11.6-13.7); WHITE BLOOD COUNT (AUTO) 12.9 K/uL (4.8-10.8)
[2023-05-09 05:49] LABS: ALANINE AMINOTRANSFERASE 19 U/L (12-78); ALBUMIN 1.5 g/dL (3.4-5.0); ALKALINE PHOSPHATASE 87 U/L (50-136); ASPARTATE AMINOTRANSFERASE 19 U/L (15-37); CALCIUM 7.2 mg/dL (8.5-10.1); CARBON DIOXIDE 23.9 mmol/L (21-32); CHLORIDE 108 mmol/L (98-107); CREATININE 3.6 mg/dL (0.6-1.3); GLUCOSE 208 mg/dL (74-106); POTASSIUM 3.9 mmol/L (3.5-5.1); SODIUM SERUM 141 mmol/L (136-145); TOTAL BILIRUBIN 0.3 mg/dL (0.0-1.0); TOTAL PROTEIN, SERUM 7.3 g/dL (6.4-8.2)
[2023-05-09 05:58] LABS: UREA NITROGEN, BLOOD 71 mg/dL (7-18)
[2023-05-09 05:59] LABS: MAGNESIUM 4.6 mg/dL (1.8-2.4)
[2023-05-09] MEDS: BLOOD GLUCOSE MONITORING 1 DEV DEV FS SCH ×4 (06:21→21:07)
[2023-05-09] MEDS: INSULIN LISPRO SLIDING SCALE 100 UNITS/ML VIAL SUBQ PRN ×4 (06:23→20:35)
[2023-05-09] MEDS: PANTOPRAZOLE 40 MG INJ VIAL IVP SCH (08:51)
[2023-05-09] MEDS ORDERED: hydrALAZINE 20 MG/ML VIAL IVP PRN (10:45)
[2023-05-09] MEDS ORDERED: NIFEdipine 60 MG TABER PO SCH (13:25)
[2023-05-09] MEDS: NIFEdipine 60 MG TABER PO SCH (13:42)
[2023-05-10] VITALS (18 sets, daily range): BP systolic 109–144; BP diastolic 48–75; PULSE 84–100; RESP 18–26; TEMP 97.3–98.9; O2SAT 97–100
[2023-05-10] MEDS: PIPERACILLIN/TAZOBACTAM 2.25 GM in DEXTROSE 5% 50 ML IV SCH ×3 (04:08→20:44)
[2023-05-10] MEDS: MORPHINE SULFATE 2 MG/ML SYR IVP PRN ×2 (04:33→22:01)
[2023-05-10] MEDS: NACL 0.9% 1,000 ML IV SCH ×2 (04:34→11:45)
[2023-05-10 04:56] LABS: HEMATOCRIT 23.8 % (36-48); HEMOGLOBIN 7.4 g/dL (12.0-16.0); MEAN CORPUSCULAR HEMOGLOBIN 28 pg (27-31); MEAN CORPUSCULAR HGB CONC 31 g/dL (33-37); MEAN CORPUSCULAR VOLUME 89.6 fL (80-94); PLATELET COUNT (AUTO) 353 K/uL (140-450); RED BLOOD CELL COUNT(AUTO) 2.66 MIL/uL (4.20-5.40); RED CELL DISTRIBUTION WIDTH 18.6 % (11.6-13.7); WHITE BLOOD COUNT (AUTO) 11.6 K/uL (4.8-10.8)
[2023-05-10 05:21] LABS: ALANINE AMINOTRANSFERASE 19 U/L (12-78); ALBUMIN 1.5 g/dL (3.4-5.0); ALKALINE PHOSPHATASE 86 U/L (50-136); ASPARTATE AMINOTRANSFERASE 25 U/L (15-37); CHLORIDE 111 mmol/L (98-107); CREATININE 3.6 mg/dL (0.6-1.3); GLUCOSE 214 mg/dL (74-106); SODIUM SERUM 143 mmol/L (136-145); TOTAL BILIRUBIN 0.2 mg/dL (0.0-1.0); TOTAL PROTEIN, SERUM 7.2 g/dL (6.4-8.2)
[2023-05-10 05:27] LABS: BASOPHILS % (MANUAL) 0 % (0-2); EOSINOPHILS % (MANUAL) 6 % (0-4); LYMPHOCYTES % (MANUAL) 9 % (20-46); MONOCYTES % (MANUAL) 4 % (5-12)
[2023-05-10 05:32] LABS: MAGNESIUM 4.2 mg/dL (1.8-2.4); UREA NITROGEN, BLOOD 63 mg/dL (7-18)
[2023-05-10] MEDS: INSULIN LISPRO SLIDING SCALE 100 UNITS/ML VIAL SUBQ PRN ×4 (06:35→20:46)
[2023-05-10] MEDS: BLOOD GLUCOSE MONITORING 1 DEV DEV FS SCH ×4 (06:40→20:45)
[2023-05-10] MEDS: NIFEdipine 60 MG TABER PO SCH (10:10)
[2023-05-10] MEDS: MUPIROCIN CA NASAL 2% 1GM TUBE NS SCH (10:14)
[2023-05-10] MEDS: PANTOPRAZOLE 40 MG INJ VIAL IVP SCH (10:15)
[2023-05-11] VITALS (17 sets, daily range): BP systolic 122–165; BP diastolic 63–79; PULSE 85–107; RESP 20–27; TEMP 97.3–98.9; O2SAT 94–100
[2023-05-11] MEDS: PIPERACILLIN/TAZOBACTAM 2.25 GM in DEXTROSE 5% 50 ML IV SCH ×3 (04:13→21:01)
[2023-05-11] MEDS: MORPHINE SULFATE 2 MG/ML SYR IVP PRN ×2 (05:06→10:13)
[2023-05-11 05:48] LABS: BASOPHILS # (AUTO) 0.1 K/uL (0.00-0.22); BASOPHILS % (AUTO) 0.6 % (0.0-2.0); EOSINOPHILS # (AUTO) 0.5 K/uL (0-0.4); EOSINOPHILS % (AUTO) 3.2 % (0.0-4.0); HEMOGLOBIN 8.1 g/dL (12.0-16.0); LYMPHOCYTES # (AUTO) 1.2 K/uL (2.5-16.5); LYMPHOCYTES % (AUTO) 7.3 % (20.5-51.1); MEAN CORPUSCULAR HEMOGLOBIN 28 pg (27-31); MEAN CORPUSCULAR HGB CONC 31 g/dL (33-37); MEAN CORPUSCULAR VOLUME 89.9 fL (80-94); MONOCYTES # (AUTO) 1.1 K/uL (0.8-1.0); MONOCYTES % (AUTO) 6.6 % (1.7-9.3); NEUTROPHILS # (AUTO) 13.4 K/uL (1.8-7.7); NEUTROPHILS % (AUTO) 82.3 % (42.2-75.2); PLATELET COUNT (AUTO) 402 K/uL (140-450); RED BLOOD CELL COUNT(AUTO) 2.89 MIL/uL (4.20-5.40); RED CELL DISTRIBUTION WIDTH 18.5 % (11.6-13.7); WHITE BLOOD COUNT (AUTO) 16.3 K/uL (4.8-10.8)
[2023-05-11 06:08] LABS: ALANINE AMINOTRANSFERASE 20 U/L (12-78); ALBUMIN 1.6 g/dL (3.4-5.0); ALKALINE PHOSPHATASE 95 U/L (50-136); ANION GAP 15.4 (8-16); ASPARTATE AMINOTRANSFERASE 21 U/L (15-37); CALCIUM 7.4 mg/dL (8.5-10.1); CARBON DIOXIDE 20.5 mmol/L (21-32); CHLORIDE 110 mmol/L (98-107); CREATININE 3.5 mg/dL (0.6-1.3); GLUCOSE 223 mg/dL (74-106); POTASSIUM 3.9 mmol/L (3.5-5.1); SODIUM SERUM 142 mmol/L (136-145); TOTAL BILIRUBIN 0.3 mg/dL (0.0-1.0); UREA NITROGEN, BLOOD 56 mg/dL (7-18)
[2023-05-11 06:22] LABS: MAGNESIUM 4.1 mg/dL (1.8-2.4)
[2023-05-11] MEDS: INSULIN LISPRO SLIDING SCALE 100 UNITS/ML VIAL SUBQ PRN ×3 (06:49→19:02)
[2023-05-11] MEDS: BLOOD GLUCOSE MONITORING 1 DEV DEV FS SCH ×4 (06:51→21:01)
[2023-05-11] MEDS ORDERED: VANCOMYCIN 750 MG in NACL 0.9% 250 ML IV SCH (09:00)
[2023-05-11] MEDS: NIFEdipine 60 MG TABER PO SCH (09:56)
[2023-05-11] MEDS: PANTOPRAZOLE 40 MG INJ VIAL IVP SCH (09:56)
[2023-05-11] MEDS: MUPIROCIN CA NASAL 2% 1GM TUBE NS SCH (09:57)
[2023-05-11] MEDS: hydrALAZINE 20 MG/ML VIAL IVP PRN (10:10)
[2023-05-11] MEDS: FUROSEMIDE 40 MG/4 ML VIAL IVP SCH (15:22)
[2023-05-11] MEDS ORDERED: LEVOFLOXACIN 500 MG/D5W PREMIX 100 ML IV ONE (20:15)
[2023-05-12] VITALS (16 sets, daily range): BP systolic 122–166; BP diastolic 59–88; PULSE 89–111; RESP 20–27; TEMP 97.1–98.5; O2SAT 92–100
[2023-05-12] MEDS: PIPERACILLIN/TAZOBACTAM 2.25 GM in DEXTROSE 5% 50 ML IV SCH ×2 (04:04→13:14)
[2023-05-12] MEDS: hydrALAZINE 20 MG/ML VIAL IVP PRN ×2 (05:23→10:07)
[2023-05-12 06:33] LABS: ALANINE AMINOTRANSFERASE 17 U/L (12-78); ALBUMIN 1.6 g/dL (3.4-5.0); ALKALINE PHOSPHATASE 91 U/L (50-136); ASPARTATE AMINOTRANSFERASE 18 U/L (15-37); CALCIUM 8.1 mg/dL (8.5-10.1); CARBON DIOXIDE 21.1 mmol/L (21-32); CHLORIDE 112 mmol/L (98-107); CREATININE 3.8 mg/dL (0.6-1.3); GLUCOSE 234 mg/dL (74-106); POTASSIUM 4.1 mmol/L (3.5-5.1); SODIUM SERUM 145 mmol/L (136-145); TOTAL BILIRUBIN 0.3 mg/dL (0.0-1.0); UREA NITROGEN, BLOOD 58 mg/dL (7-18)
[2023-05-12 06:37] LABS: MAGNESIUM 4.1 mg/dL (1.8-2.4)
[2023-05-12] MEDS: MORPHINE SULFATE 2 MG/ML SYR IVP PRN (06:39)
[2023-05-12] MEDS: INSULIN LISPRO SLIDING SCALE 100 UNITS/ML VIAL SUBQ PRN ×2 (06:58→21:02)
[2023-05-12] MEDS: BLOOD GLUCOSE MONITORING 1 DEV DEV FS SCH ×4 (07:00→21:05)
[2023-05-12 07:02] LABS: BASOPHILS # (AUTO) 0.1 K/uL (0.00-0.22); BASOPHILS % (AUTO) 0.4 % (0.0-2.0); EOSINOPHILS # (AUTO) 0.2 K/uL (0-0.4); EOSINOPHILS % (AUTO) 1.3 % (0.0-4.0); HEMATOCRIT 26.7 % (36-48); HEMOGLOBIN 8.1 g/dL (12.0-16.0); LYMPHOCYTES # (AUTO) 0.6 K/uL (2.5-16.5); LYMPHOCYTES % (AUTO) 3.6 % (20.5-51.1); MEAN CORPUSCULAR HEMOGLOBIN 28 pg (27-31); MEAN CORPUSCULAR HGB CONC 30 g/dL (33-37); MEAN CORPUSCULAR VOLUME 90.9 fL (80-94); MONOCYTES # (AUTO) 1.1 K/uL (0.8-1.0); NEUTROPHILS % (AUTO) 88.7 % (42.2-75.2); PLATELET COUNT (AUTO) 411 K/uL (140-450); RED BLOOD CELL COUNT(AUTO) 2.93 MIL/uL (4.20-5.40); RED CELL DISTRIBUTION WIDTH 18.7 % (11.6-13.7)
[2023-05-12] MEDS: FUROSEMIDE 40 MG/4 ML VIAL IVP SCH (10:07)
[2023-05-12] MEDS: MUPIROCIN CA NASAL 2% 1GM TUBE NS SCH (10:07)
[2023-05-12] MEDS: PANTOPRAZOLE 40 MG INJ VIAL IVP SCH (10:07)
[2023-05-12] MEDS: NIFEdipine 60 MG TABER PO SCH (10:08)
[2023-05-13] VITALS (16 sets, daily range): BP systolic 139–157; BP diastolic 65–86; PULSE 91–106; RESP 18–21; TEMP 97.3–98.1; O2SAT 94–100
[2023-05-13] MEDS: hydrALAZINE 20 MG/ML VIAL IVP PRN (03:06)
[2023-05-13] MEDS: MORPHINE SULFATE 2 MG/ML SYR IVP PRN (05:49)
[2023-05-13] MEDS: BLOOD GLUCOSE MONITORING 1 DEV DEV FS SCH ×4 (06:31→20:19)
[2023-05-13] MEDS: INSULIN LISPRO SLIDING SCALE 100 UNITS/ML VIAL SUBQ PRN ×3 (06:33→20:21)
[2023-05-13 06:53] LABS: BASOPHILS # (AUTO) 0.1 K/uL (0.00-0.22); BASOPHILS % (AUTO) 0.6 % (0.0-2.0); EOSINOPHILS # (AUTO) 0.3 K/uL (0-0.4); EOSINOPHILS % (AUTO) 1.3 % (0.0-4.0); HEMATOCRIT 26.8 % (36-48); HEMOGLOBIN 8.1 g/dL (12.0-16.0); LYMPHOCYTES # (AUTO) 1.4 K/uL (2.5-16.5); LYMPHOCYTES % (AUTO) 6.6 % (20.5-51.1); MEAN CORPUSCULAR HEMOGLOBIN 27 pg (27-31); MEAN CORPUSCULAR HGB CONC 30 g/dL (33-37); MEAN CORPUSCULAR VOLUME 90.3 fL (80-94); MONOCYTES # (AUTO) 1.6 K/uL (0.8-1.0); MONOCYTES % (AUTO) 7.4 % (1.7-9.3); NEUTROPHILS # (AUTO) 18.5 K/uL (1.8-7.7); NEUTROPHILS % (AUTO) 84.1 % (42.2-75.2); PLATELET COUNT (AUTO) 462 K/uL (140-450); RED BLOOD CELL COUNT(AUTO) 2.97 MIL/uL (4.20-5.40); RED CELL DISTRIBUTION WIDTH 18.5 % (11.6-13.7)
[2023-05-13 07:03] LABS: ALANINE AMINOTRANSFERASE 20 U/L (12-78); ALBUMIN 1.7 g/dL (3.4-5.0); ALKALINE PHOSPHATASE 92 U/L (50-136); ASPARTATE AMINOTRANSFERASE 22 U/L (15-37); CALCIUM 8.1 mg/dL (8.5-10.1); CARBON DIOXIDE 19.1 mmol/L (21-32); CHLORIDE 111 mmol/L (98-107); CREATININE 3.9 mg/dL (0.6-1.3); GLUCOSE 216 mg/dL (74-106); POTASSIUM 4.1 mmol/L (3.5-5.1); SODIUM SERUM 146 mmol/L (136-145); TOTAL BILIRUBIN 0.3 mg/dL (0.0-1.0); TOTAL PROTEIN, SERUM 8.4 g/dL (6.4-8.2); UREA NITROGEN, BLOOD 57 mg/dL (7-18)
[2023-05-13] MEDS: PANTOPRAZOLE 40 MG INJ VIAL IVP SCH (09:12)
[2023-05-13] MEDS: MUPIROCIN CA NASAL 2% 1GM TUBE NS SCH (09:12)
[2023-05-13] MEDS: FUROSEMIDE 40 MG/4 ML VIAL IVP SCH (09:13)
[2023-05-13] MEDS: NIFEdipine 60 MG TABER PO SCH (09:13)
[2023-05-13] MEDS ORDERED: LEVOFLOXACIN 250 MG/D5 PREMIX 50 ML IV SCH (20:15)
[2023-05-14] VITALS (35 sets, daily range): BP systolic 62–195; BP diastolic 32–102; PULSE 24–106; RESP 15–34; TEMP 92.3–98; O2SAT 88–100
[2023-05-14] MEDS: BLOOD GLUCOSE MONITORING 1 DEV DEV FS SCH ×3 (06:47→18:25)
[2023-05-14] MEDS: INSULIN LISPRO SLIDING SCALE 100 UNITS/ML VIAL SUBQ PRN (06:50)
[2023-05-14] MEDS: PANTOPRAZOLE 40 MG INJ VIAL IVP SCH (09:08)
[2023-05-14] MEDS: MUPIROCIN CA NASAL 2% 1GM TUBE NS SCH (09:09)
[2023-05-14] MEDS: NIFEdipine 60 MG TABER PO SCH (09:10)
[2023-05-14] MEDS: FUROSEMIDE 40 MG/4 ML VIAL IVP SCH (09:11)
[2023-05-14] MEDS: hydrALAZINE 20 MG/ML VIAL IVP PRN ×2 (09:11→15:27)
[2023-05-14] MEDS ORDERED: DOPPLER MC ONE (09:50)
[2023-05-14] MEDS ORDERED: NACL 0.9% 2,000 ML IV SCH (11:05)
[2023-05-14] MEDS ORDERED: NEOSTIGMINE 1:1000 10 MG/10 ML VIAL SUBQ SCH (12:00)
[2023-05-14 12:11] LABS: BLOOD GAS PH 6.859 (7.35-7.45)
[2023-05-14 12:12] LABS: BLOOD GAS PCO2 51.8 mmHg (35-45); BLOOD GAS PO2 79.9 mmHg (75-100)
[2023-05-14 12:13] LABS: BLOOD GAS BASE EXCESS -23.5 mmol/L (-2.0-2.0)
[2023-05-14 12:14] LABS: BLOOD GAS O2 SAT% 83.1 % (92.0-98.5)
[2023-05-14] MEDS: AZTREONAM 500 MG in DEXTROSE 5% 50 ML IV SCH ×2 (13:00→21:38)
[2023-05-14] MEDS: metroNIDAZOLE 500 MG/NS PREMIX 100 ML IV SCH ×2 (13:00→21:37)
[2023-05-14] MEDS ORDERED: SODIUM BICARBONATE 8.4% PFS 50 MEQ/50 ML SYR IVP SCH (13:00)
[2023-05-14 14:40] LABS: BLOOD GAS PCO2 42.3 mmHg (35-45); BLOOD GAS PH 7.082 (7.35-7.45)
[2023-05-14] MEDS: NOREPINEPHRINE 8 MG in DEXTROSE 5% 250 ML IV PRN ×3 (14:40→23:50)
[2023-05-14 14:41] LABS: BLOOD GAS BASE EXCESS -16.5 mmol/L (-2.0-2.0); BLOOD GAS HCO3 12.3 mmol/L (22-26); BLOOD GAS O2 SAT% 94.5 % (92.0-98.5); BLOOD GAS PO2 97.1 mmHg (75-100)
[2023-05-14 14:59] LABS: BASOPHILS % (AUTO) 0.2 % (0.0-2.0); EOSINOPHILS # (AUTO) 0.1 K/uL (0-0.4); EOSINOPHILS % (AUTO) 0.3 % (0.0-4.0); MEAN CORPUSCULAR HEMOGLOBIN 27 pg (27-31); MEAN CORPUSCULAR HGB CONC 29 g/dL (33-37); MEAN CORPUSCULAR VOLUME 95.6 fL (80-94); MONOCYTES # (AUTO) 0.7 K/uL (0.8-1.0); MONOCYTES % (AUTO) 2.6 % (1.7-9.3); NEUTROPHILS % (AUTO) 92.9 % (42.2-75.2); PLATELET COUNT (AUTO) 451 K/uL (140-450); RED CELL DISTRIBUTION WIDTH 17.9 % (11.6-13.7)
[2023-05-14 15:06] LABS: WHITE BLOOD COUNT (AUTO) 25.8 K/uL (4.8-10.8)
[2023-05-14 15:07] LABS: HEMOGLOBIN 6.9 g/dL (12.0-16.0)
[2023-05-14 15:14] LABS: LACTIC ACID 12.8 mmol/L (0.4-2.0)
[2023-05-14 15:39] LABS: ALANINE AMINOTRANSFERASE 767 U/L (12-78); ALBUMIN 1.2 g/dL (3.4-5.0); ALKALINE PHOSPHATASE 197 U/L (50-136); ANION GAP 30.6 (8-16); ASPARTATE AMINOTRANSFERASE 1647 U/L (15-37); CALCIUM 8.2 mg/dL (8.5-10.1); CARBON DIOXIDE 13.2 mmol/L (21-32); CHLORIDE 113 mmol/L (98-107); GLUCOSE 196 mg/dL (74-106); POTASSIUM 4.8 mmol/L (3.5-5.1); SODIUM SERUM 152 mmol/L (136-145); TOTAL BILIRUBIN 0.7 mg/dL (0.0-1.0); TOTAL PROTEIN, SERUM 6.5 g/dL (6.4-8.2)
[2023-05-14 15:53] LABS: UREA NITROGEN, BLOOD 69 mg/dL (7-18)
[2023-05-14 15:54] LABS: CREATININE 4.7 mg/dL (0.6-1.3); MAGNESIUM 4.4 mg/dL (1.8-2.4); PHOSPHORUS 14.4 mg/dL (2.5-4.9)
[2023-05-14] MEDS ORDERED: NEOSTIGMINE 1:1000 10 MG/10 ML VIAL SUBQ ONE (16:25)
[2023-05-14] MEDS: NEOSTIGMINE 1:1000 10 MG/10 ML VIAL SUBQ SCH ×2 (16:27→23:29)
[2023-05-14] MEDS: VASOPRESSIN 20 UNITS in NACL 0.9% 250 ML IV SCH (18:18)
[2023-05-14] MEDS: DEXT 5% /NACL 0.9% 1,000 ML IV SCH ×2 (18:18→23:45)
[2023-05-14] MEDS ORDERED: NOREPINEPHRINE 4 MG/4 ML VIAL IV ONE ×2 (18:29→23:40)
[2023-05-14] MEDS ORDERED: SODIUM BICARBONATE 8.4% PFS 50 MEQ/50 ML SYR IVP ONE ×2 (20:10→20:31)
[2023-05-14] MEDS ORDERED: PHENYLEPHRINE 10 MG/ML VIAL IV ONE (20:10)
[2023-05-14] MEDS ORDERED: PHENYLEPHRINE 10 MG in NACL 0.9% 250 ML IV PRN (20:10)
[2023-05-14] MEDS ORDERED: PHENYLEPHRINE 10 MG/ML VIAL ONE (20:33)
[2023-05-14] MEDS: NACL 0.9% IV PRN (21:40)
[2023-05-14] MEDS: PHENYLEPHRINE IV PRN (21:40)
[2023-05-15] VITALS (25 sets, daily range): BP systolic 55–88; BP diastolic 21–54; PULSE 31–98; RESP 8–46; TEMP 83.6–98.5; O2SAT 68–100
[2023-05-15] MEDS: BLOOD GLUCOSE MONITORING 1 DEV DEV FS SCH ×3 (00:41→12:32)
[2023-05-15] MEDS ORDERED: PHENYLEPHRINE 10 MG/ML VIAL ONE ×3 (01:54→16:19)
[2023-05-15] MEDS ORDERED: NOREPINEPHRINE 4 MG/4 ML VIAL IV ONE (04:10)
[2023-05-15] MEDS: AZTREONAM 500 MG in DEXTROSE 5% 50 ML IV SCH (04:21)
[2023-05-15] MEDS: NOREPINEPHRINE 8 MG in DEXTROSE 5% 250 ML IV PRN ×3 (04:23→13:19)
[2023-05-15] MEDS: metroNIDAZOLE 500 MG/NS PREMIX 100 ML IV SCH ×2 (04:30→14:47)
[2023-05-15] MEDS ORDERED: VASOPRESSIN 20 UNITS/ML VIAL ONE (05:19)
[2023-05-15] MEDS: VASOPRESSIN 20 UNITS in NACL 0.9% 250 ML IV SCH (05:26)
[2023-05-15 05:27] LABS: BASOPHILS % (AUTO) 0.1 % (0.0-2.0); EOSINOPHILS # (AUTO) 0.1 K/uL (0-0.4); EOSINOPHILS % (AUTO) 0.5 % (0.0-4.0); HEMATOCRIT 27.9 % (36-48); HEMOGLOBIN 8.1 g/dL (12.0-16.0); LYMPHOCYTES # (AUTO) 0.9 K/uL (2.5-16.5); LYMPHOCYTES % (AUTO) 4.7 % (20.5-51.1); MEAN CORPUSCULAR HEMOGLOBIN 27 pg (27-31); MEAN CORPUSCULAR HGB CONC 29 g/dL (33-37); MEAN CORPUSCULAR VOLUME 94.5 fL (80-94); MONOCYTES # (AUTO) 0.5 K/uL (0.8-1.0); MONOCYTES % (AUTO) 2.5 % (1.7-9.3); NEUTROPHILS # (AUTO) 17.8 K/uL (1.8-7.7); NEUTROPHILS % (AUTO) 92.2 % (42.2-75.2); PLATELET COUNT (AUTO) 379 K/uL (140-450); RED BLOOD CELL COUNT(AUTO) 2.95 MIL/uL (4.20-5.40); RED CELL DISTRIBUTION WIDTH 18.6 % (11.6-13.7); WHITE BLOOD COUNT (AUTO) 19.3 K/uL (4.8-10.8)
[2023-05-15 05:40] LABS: ALANINE AMINOTRANSFERASE 712 U/L (12-78); ALKALINE PHOSPHATASE 162 U/L (50-136); ANION GAP 29.5 (8-16); ASPARTATE AMINOTRANSFERASE 2020 U/L (15-37); CALCIUM 7.4 mg/dL (8.5-10.1); CARBON DIOXIDE 14.2 mmol/L (21-32); CHLORIDE 112 mmol/L (98-107); GLUCOSE 149 mg/dL (74-106); POTASSIUM 3.7 mmol/L (3.5-5.1); SODIUM SERUM 152 mmol/L (136-145); TOTAL BILIRUBIN 1.5 mg/dL (0.0-1.0); TOTAL PROTEIN, SERUM 5.4 g/dL (6.4-8.2)
[2023-05-15 05:51] LABS: CREATININE 4.8 mg/dL (0.6-1.3); UREA NITROGEN, BLOOD 79 mg/dL (7-18)
[2023-05-15] MEDS: NACL 0.9% IV PRN ×2 (06:40→11:24)
[2023-05-15] MEDS: PHENYLEPHRINE IV PRN ×2 (06:40→11:24)
[2023-05-15] MEDS ORDERED: EPINEPHrine 1 mg/mL 1 MG in DEXTROSE 5% 250 ML IV STA (08:29)
[2023-05-15] MEDS ORDERED: MAG SULF 2000 MG/WATER PREMIX 50 ML IV SCH (08:30)
[2023-05-15 08:43] LABS: HEMATOCRIT 29.1 % (36-48); HEMOGLOBIN 8.3 g/dL (12.0-16.0); MEAN CORPUSCULAR HEMOGLOBIN 28 pg (27-31); MEAN CORPUSCULAR HGB CONC 28 g/dL (33-37); MEAN CORPUSCULAR VOLUME 98.2 fL (80-94); PLATELET COUNT (AUTO) 404 K/uL (140-450); RED BLOOD CELL COUNT(AUTO) 2.97 MIL/uL (4.20-5.40); WHITE BLOOD COUNT (AUTO) 21.2 K/uL (4.8-10.8)
[2023-05-15] MEDS ORDERED: SODIUM BICARBONATE 8.4% PFS 50 MEQ/50 ML SYR IVP STA (09:01)
[2023-05-15] MEDS ORDERED: NACL 0.9% 1,000 ML IV STA (09:01)
[2023-05-15] MEDS ORDERED: VANCOMYCIN PER PHARMACY MC PRN (09:05)
[2023-05-15 09:10] LABS: EOSINOPHILS % (MANUAL) 2 % (0-4); LYMPHOCYTES % (MANUAL) 15 % (20-46); MONOCYTES % (MANUAL) 5 % (5-12)
[2023-05-15 09:13] LABS: METAMYELOCYTES % 1 % (0-0); MYELOCYTES % 1 % (0-0)
[2023-05-15 09:29] LABS: ALANINE AMINOTRANSFERASE 813 U/L (12-78); ALKALINE PHOSPHATASE 225 U/L (50-136); ANION GAP 35.3 (8-16); CALCIUM 7.3 mg/dL (8.5-10.1); CARBON DIOXIDE 10.3 mmol/L (21-32); CHLORIDE 110 mmol/L (98-107); GLUCOSE 79 mg/dL (74-106); POTASSIUM 4.6 mmol/L (3.5-5.1); SODIUM SERUM 151 mmol/L (136-145); TOTAL BILIRUBIN 1.7 mg/dL (0.0-1.0); TOTAL PROTEIN, SERUM 5.5 g/dL (6.4-8.2)
[2023-05-15 09:33] LABS: CREATININE 4.7 mg/dL (0.6-1.3); UREA NITROGEN, BLOOD 79 mg/dL (7-18)
[2023-05-15 09:34] LABS: MAGNESIUM 4.6 mg/dL (1.8-2.4)
[2023-05-15 09:35] LABS: ASPARTATE AMINOTRANSFERASE 775 U/L (15-37)
[2023-05-15 09:37] LABS: PHOSPHORUS 2.7 mg/dL (2.5-4.9)
[2023-05-15] MEDS ORDERED: EPINEPHrine 1 mg/mL 1 MG in DEXTROSE 5% 250 ML IV PRN (09:45)
[2023-05-15] MEDS ORDERED: SODIUM BICARBONATE 8.4% 150 MEQ in DEXTROSE 5% 1,000 ML IV SCH (10:00)
[2023-05-15] MEDS: PANTOPRAZOLE 40 MG INJ VIAL IVP SCH ×2 (10:12→13:48)
[2023-05-15 10:38] LABS: BLOOD GAS PCO2 42.3 mmHg (35-45); BLOOD GAS PH 6.756 (7.35-7.45); BLOOD GAS PO2 153.5 mmHg (75-100)
[2023-05-15 10:40] LABS: BLOOD GAS BASE EXCESS -28.2 mmol/L (-2.0-2.0); BLOOD GAS HCO3 5.8 mmol/L (22-26); BLOOD GAS O2 SAT% 96.1 % (92.0-98.5)
[2023-05-15] MEDS ORDERED: VANCOMYCIN 1.25GM PREMIX 250 ML IV SCH (11:00)
[2023-05-15] MEDS: DOPamine 400 MG/D5W PREMIX 250 ML IV PRN ×2 (11:03→16:14)
[2023-05-15] MEDS ORDERED: EPINEPHrine 1 mg/mL 5 MG in DEXTROSE 5% 250 ML IV PRN (11:25)
[2023-05-15] MEDS ORDERED: LORazepam 50 MG in NACL 0.9% 25 ML IV SCH (16:25)
[2023-05-15] MEDS ORDERED: MORPHINE SULFATE 50 MG in NACL 0.9% 45 ML IV SCH (16:25)
[2023-05-15] MEDS ORDERED: MORPHINE SULFATE 50 MG in NACL 0.9% 45 ML IV PRN (16:30)
[2023-05-15] MEDS ORDERED: LORazepam 50 MG in NACL 0.9% 25 ML IV PRN (16:35)
[2023-05-15] MEDS ORDERED: MEROPENEM 500 MG in NACL 0.9% 50 ML IV SCH (21:00)
== END 2023-05-15 16:50 | DRG 720 ==
LOC: MED 20:14 → MTU 22:03 → MIC 05-14 10:04
PROVIDERS: ADMIT Internal Medicine; ATTEND Internal Medicine
PROC: 5A1955Z Respiratory Ventilation, Greater than 96 Consecutive Hours (ICD-10-PCS; principal; 2023-05-07)
PROC: 30233N1 Transfusion of Nonautologous Red Blood Cells into Peripheral Vein, Percutaneous Approach (ICD-10-PCS; 2023-05-08)
PROC: 5A12012 Performance of Cardiac Output, Single, Manual (ICD-10-PCS; 2023-05-14)
PROC: 02HV33Z Insertion of Infusion Device into Superior Vena Cava, Percutaneous Approach (ICD-10-PCS; 2023-05-14)
PROC: B548ZZA Ultrasonography of Superior Vena Cava, Guidance (ICD-10-PCS; 2023-05-14)
DX: A41.9 Sepsis, unspecified organism (principal); J96.20 Acute and chronic respiratory failure, unspecified whether with hypoxia or hypercapnia; N17.0 Acute kidney failure with tubular necrosis; J95.851 Ventilator associated pneumonia; R65.21 Severe sepsis with septic shock; R57.0 Cardiogenic shock; G93.49 Other encephalopathy; D63.8 Anemia in other chronic diseases classified elsewhere; E83.41 Hypermagnesemia; E44.0 Moderate protein-calorie malnutrition; I46.9 Cardiac arrest, cause unspecified; D64.9 Anemia, unspecified; E11.22 Type 2 diabetes mellitus with diabetic chronic kidney disease; E87.0 Hyperosmolality and hypernatremia; E11.65 Type 2 diabetes mellitus with hyperglycemia; R13.10 Dysphagia, unspecified; Z66 Do not resuscitate; E03.9 Hypothyroidism, unspecified; E87.1 Hypo-osmolality and hyponatremia; I12.9 Hypertensive chronic kidney disease with stage 1 through stage 4 chronic kidney disease, or unspecified chronic kidney disease; N18.9 Chronic kidney disease, unspecified; K21.9 Gastro-esophageal reflux disease without esophagitis; Z20.822 Contact with and (suspected) exposure to COVID-19; Z68.35 Body mass index [BMI] 35.0-35.9, adult; G40.909 Epilepsy, unspecified, not intractable, without status epilepticus; J44.0 Chronic obstructive pulmonary disease with (acute) lower respiratory infection; Z16.19 Resistance to other specified beta lactam antibiotics; Z88.8 Allergy status to other drugs, medicaments and biological substances; Z99.11 Dependence on respirator [ventilator] status; Z86.73 Personal history of transient ischemic attack (TIA), and cerebral infarction without residual deficits
CPT/HCPCS: 36415; 36430; 36600; 71045; 76770; 80053; 80202; 81001; 82550; 82803; 82948; 83605; 83690; 83735; 83880; 84100; 84484; 85018; 85025; 85610; 85730; 86886; 86900; 86901; 86920; 87040; 87070; 87081; 87086; 87205; 89220; 92950; 93005; 94002; 94003; 96365; 96366; 96367; 99291; C9113; J0171; J0360; J1265; J1644; J1815; J1940; J1956; J2060; J2185; J2270; J2370; J2543; J2710; J3370; J3372; J3490; J7030; J7060; P9016; Q0092